=== PATIENT | female | born 1955 | race Caucasian/White ===

== ENCOUNTER 2020-04-08 16:34 | Inpatient (IN) | payer MEDICAID, SELFPAY ==
[2020-04-08 16:45] VITALS: BP 156/102; PULSE 100; RESP 18; TEMP 36.6; O2SAT 97; BMI 34.9
--- NOTE | 2020-04-08 16:50 | XRR_ITS ---
PROCEDURE INFORMATION: Exam: XR Chest, 1 View Exam date and time: 04/08/2020 5:10 PM Age: 64 years old Clinical indication: Cough and shortness of breath. TECHNIQUE: Imaging protocol: XR of the chest Views: 1 view. COMPARISON: No relevant prior studies available. FINDINGS: Lungs: No central pulmonary vascular congestion. There is bibasilar airspace disease which can be due to pneumonia, aspiration, or dependent pulmonary edema. Pleural space: There is a right pleural effusion, volume difficult to determine. No sign of a left pleural effusion. No pneumothorax. Heart/Mediastinum: The cardiac silhouette is borderline enlarged. There is some widening of the mediastinum which may be due to mediastinal lipomatosis given the patient's body habitus. Vasculature: The thoracic aortic arch is atherosclerotic. Bones/joints: Curvature of the lower thoracic spine convex to the right associated with multilevel disc degeneration. XR/XR chest 1V portable [id number] IMPRESSION: 1. Bibasilar airspace disease. 2. Right pleural effusion.
--- NOTE | 2020-04-08 16:51 | ECG_ITS ---
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 Measurements Intervals [place] Rate: 94 P: 29 [place]: 136 QRS: 64 QRSD: 85 T: 53 QT: 355 QTc: 446 Interpretive Statements SINUS RHYTHM MODERATE ST DEPRESSION [0.05+ mV ST DEPRESSION] No previous ECG available for comparison Electronically Signed On 04-08-2020 18:51:23 CDT by Jonah Velásquez M.D. [id number]
[2020-04-08 17:46] LABS: Basophils % 0.2 %; Eosinophils % 0.1 %; Hemoglobin 13.5 g/dL (11.5-15.3); Lymphocytes # 0.9 10^3/uL (0.8-4.8); Lymphocytes % 4.4 %; Mean Corpuscular HGB Conc 35.5 g/dL (30.0-36.0); Mean Corpuscular Hemoglobin 31.9 pg (28.0-34.0); Mean Corpuscular Volume 89.8 fL (81-99); Mean Platelet Volume 9.1 fL (7.4-10.4); Monocytes # 0.9 10^3/uL (0.2-0.9); Monocytes % 4.7 %; Neutrophils # 17.63 10^3/uL (1.8-7.7); Neutrophils % 88.9 %; Nucleated Red Blood Cells % 0 %; Platelet Count 325 10^3/cmm (130-400); Red Blood Count 4.23 10^6/uL (4.1-5.3); Red Cell Distribution Width 11.5 % (12.1-15.1); White Blood Count 19.8 10^3/uL (4.0-10.0)
[2020-04-08 17:48] VITALS: PULSE 97; RESP 20; O2SAT 94
[2020-04-08] MEDS: sodium chloride 0.9% 1,000 ML 75 ML IV (17:53)
--- NOTE | 2020-04-08 17:54 | PC.NURSE ---
informed dr. limon of [facility] adm 125mg of solumedrol en route vo with read back to dc dexamethasone.
[2020-04-08 18:02] LABS: INR 1.02 (0.8-1.2)
[2020-04-08 18:04] LABS: D Dimer 2.63 ug/mIFEU (0-0.59)
[2020-04-08 18:10] LABS: Lactic Sepsis W/Reflex 1.6 mmol/L (0.5-2.2)
[2020-04-08 18:12] LABS: Troponin(5th) Baseline 16 ng/L (0-10)
[2020-04-08 18:13] LABS: SARS Covid-2 Antigen Negative (Negative)
[2020-04-08 18:17] LABS: NT Pro B Type Natriuretic Pept 589 pg/mL (0-125); Procalcitonin 6.61 ng/mL (0-0.5)
[2020-04-08 18:18] LABS: Influenza A by IFA Negative (Negative); Influenza B by IFA Negative (Negative)
[2020-04-08 18:28] LABS: Alanine Aminotransferase 139 U/L (0-33); Albumin Level 3.8 g/dL (3.5-5.2); Alkaline Phosphatase 180 IU/L (35-105); Aspartate Amino Transferase 66 U/L (0-32); Blood Urea Nitrogen 8 mg/dL (8-23); C Reactive Protein 8.5 mg/L (0.0-4.9); Calcium 9.4 mg/dL (8.5-10.5); Carbon Dioxide 23 mmol/L (22-29); Chloride 84 mmol/L (98-107); Creatinine Clr Calc Pharmacy 221.9257; Glomerular Filtration Rate 225.4 mL/min (90-130); Glucose 126 mg/dL (65-115); Osmolality Calculated 250 mOsm/kg (285-295); Sodium 120 mmol/L (136-145); Total Bilirubin 0.5 mg/dL (0.15-1.2); Total Protein 6.8 g/dL (6.6-8.7)
[2020-04-08 18:32] LABS: Anion Gap 17.1 (5-19); Potassium 4.1 mmol/L (3.5-5.1)
--- NOTE | 2020-04-08 18:32 | W.ED.SOB ---
HPI - SOB/Dyspnea General: Chief Complaint: Shortness of Breath/Dyspnea Stated Complaint: PNEUMONIA Time Seen by Provider: 04/08/20 16:42 History of Present Illness: HPI Narrative: This patient is a 64-year-old female who presents today with shortness of breath. She said she has been sick with sinus type symptoms for several weeks. In the past 3 days she has become very short of breath and has developed a cough. She is been on several rounds of antibiotics. She said her nurse practitioner in [place] had done a chest x-ray last week. She went in today because she did not think she was get a make it being so short of breath and she was told to come to the ER for pneumonia. She is unaware of any exposures to COVID. She has not had a fever that she knows of. She does have some inhalers at home. She does not use oxygen at home. She has been told that she might have COPD. MD elicited complaint: shortness of breath and cough Pertinent past history: COPD Onset (ago): day(s) (3 days of severe shortness of breath, several weeks of sinus type symptoms) Context: recent illness Timing: constant and progressively worsening Severity: severe Exacerbating factors: nothing Relieving factors: nothing Known history of: COPD Associated symptoms: Reports chest congestion and cough; Deny abdominal pain, chest pain, fever(s), nausea or vomiting Review of Systems General: Reports: 10 or more systems reviewed and unremarkable except in HPI and below Const: Reports: fatigue and malaise; Denies: fever(s) or chills Eyes: Denies: change in vision ENMT: Denies: odynophagia Card: Denies: chest pain or swelling of feet/ankles Resp: Reports: dyspnea, productive cough, wheezing and chest congestion GI: Denies: abdominal pain, nausea or vomiting : Denies: flank pain or difficulty voiding Musc: Denies: neck pain or back pain Skin/Breast: Denies: rash Neuro: Denies: headache(s), numbness in extremities or weakness in extremities Morgan/Lymph: Denies: easy bruising or easy bleeding [facility] ED PFSH: Medical History (Updated 04/15/20 @ 17:48 by Karina Jordan MD) No pertinent past medical history Surgical History No pertinent past surgical history Family History Mother CAD (coronary artery disease) Social History (Updated 04/14/20 @ 11:58 by Александр Nguyen MD) Smoking and tobacco status: current every day smoker cigarettes [ Other cigarette details: She has smoked for 45 years up to a pack and a half of cigarettes daily. ] Alcohol intake: former Other details last alcohol use: She has a long history of alcohol use which had increased over the past 10 years up to 12 pack of beer per day. She quit 3 to 4 months ago. Substance/Drug Use: never Household members: family Housing: House Physical Exam Const: COMMON NORMALS: patient oriented x3, no limitations and alert GENERAL APPEARANCE: cooperative HENMT: HEAD & SCALP: normal to inspection FACE & SINUS: normal facial exam Eye: GENERAL EYE: appearance normal, both eyes and all related structures Neck/C-Spine: COMMON NORMALS: supple, no meningeal signs and no JVD Chest: COMMONS NORMALS: normal inspection of the chest Resp: EFFORT & INSPECTION: Yes tachypneic, Yes labored and Yes uses accessory muscles AUSCULTATION: rhonchi lower bilaterally Cardio: COMMON NORMALS: no JVD, regular rate, regular rhythm and No murmurs present (Cardio) RATE: regular rate RHYTHM: regular rhythm GI: COMMON NORMALS: Normal to inspection, nondistended, normoactive bowel sounds present, Soft to palpation and non-tender INSPECTION: Yes normal to inspection AUSCULTATION: Yes normoactive bowel sounds PALPATION: Yes Soft to palpation Back/Pelvis: COMMON NORMALS: thoracic and lumbar spine normal to inspection Extremity: COMMON NORMALS: normal to inspection Neuro: COMMON NORMALS: patient oriented x3, moves all extremities, no focal motor deficits and no sensory deficits noted SENSORIUM/ORIENTATION: Yes alert MENINGEAL SIGNS: Yes no meningeal signs Psych: COMMON NORMALS: mental status grossly normal, cooperative and normal affect Skin: COMMON NORMALS: no rashes or lesions noted and turgor normal GENERAL SKIN EXAM: no rashes or lesions noted and turgor normal Course ED course: This patient is a 64-year-old female who presents with shortness of breath. She has been trying to take care of this and as an outpatient and is seen her doctor a few times. She is been on several different antibiotics. She appears to have a community-acquired pneumonia. Her presentation is not typical for COVID. She will be treated for pneumonia and admitted for further management. Vital Signs: Vital signs: Vital Signs Temperature 98.5 F 04/15/20 16:10 Pulse Rate 79 04/15/20 18:05 Respiratory Rate 17 04/15/20 18:05 Blood Pressure 179/89 04/15/20 18:05 Pulse Oximetry 94 04/15/20 18:05 MDM - SOB/Dyspnea Lab Data: Labs: Lab Results 04/08/20 04/08/20 04/08/20 Range/Units 01:15 01:15 17:35 WBC 19.8 H (4.0-10.0) 10^3/ uL RBC 4.23 (4.1-5.3) 10^6/u L Hgb 13.5 (11.5-15.3) g/dL Hct 38.0 (37.0-47.0) % MCV 89.8 (81-99) fL MCH 31.9 (28.0-34.0) pg MCHC 35.5 (30.0-36.0) g/dL RDW 11.5 L (12.1-15.1) % Plt Count 325 (130-400) 10^3/c mm MPV 9.1 (7.4-10.4) fL Neut % (Auto) 88.9 % Lymph % (Auto) 4.4 % [place] % (Auto) 4.7 % Eos % (Auto) 0.1 % Baso % (Auto) 0.2 % Neut # (Auto) 17.63 H (1.8-7.7) 10^3/u L Lymph # (Auto) 0.9 (0.8-4.8) 10^3/u L [place] # (Auto) 0.9 (0.2-0.9) 10^3/u L Eos # (Auto) 0.0 (0.0-0.8) 10^3/u L Baso # (Auto) 0.0 (0.0-0.1) 10^3/u L Nucleated RBC % (a uto) 0 % Nucleated RBCs # 0.0 /100WBC PT (12.1-14.9) SECO NDS INR (0.8-1.2) D-Dimer (0-0.59) ug/mIFE U Sodium (136-145) mmol/L Potassium (3.5-5.1) mmol/L Chloride (98-107) mmol/L Carbon Dioxide (22-29) mmol/L Anion Gap (5-19) BUN (8-23) mg/dL Creatinine (0.5-0.9) mg/dL GFR Calculation (90-130) mL/min Glucose (65-115) mg/dL Calculated Osmolal ity (285-295) mOsm/k g Lactic Acid (0.5-2.2) mmol/L Uric Acid (2.4-5.7) mg/dL Calcium (8.5-10.5) mg/dL Total Bilirubin (0.15-1.2) mg/dL AST (0-32) U/L ALT (0-33) U/L Alkaline Phosphata se (35-105) IU/L Troponin T Baselin e (0-10) ng/L Troponin T 120 Min [place] (0-10) ng/L Delta Troponin T (0-10) ABS# C-Reactive Protein (0.0-4.9) mg/L NT-Pro-B Natriuret Pep (0-125) pg/mL Total Protein (6.6-8.7) g/dL Albumin (3.5-5.2) g/dL Globulin (1.3-4.6) g/dL Procalcitonin (0-0.5) ng/mL TSH (0.27-4.20) uIU/ mL Urine Osmolality 451 (50-1200) mOsm/k g Ur Random Sodium 38 mmol/L Influenza Type A A g (Negative) Influenza Type B A g (Negative) SARS-CoV-2 Ag (Rap id) (Negative) 04/08/20 04/08/20 04/08/20 Range/Units 17:35 17:35 17:35 WBC (4.0-10.0) 10^3/ uL RBC (4.1-5.3) 10^6/u L Hgb (11.5-15.3) g/dL Hct (37.0-47.0) % MCV (81-99) fL MCH (28.0-34.0) pg MCHC (30.0-36.0) g/dL RDW (12.1-15.1) % Plt Count (130-400) 10^3/c mm MPV (7.4-10.4) fL Neut % (Auto) % Lymph % (Auto) % [place] % (Auto) % Eos % (Auto) % Baso % (Auto) % Neut # (Auto) (1.8-7.7) 10^3/u L Lymph # (Auto) (0.8-4.8) 10^3/u L [place] # (Auto) (0.2-0.9) 10^3/u L Eos # (Auto) (0.0-0.8) 10^3/u L Baso # (Auto) (0.0-0.1) 10^3/u L Nucleated RBC % (a uto) % Nucleated RBCs # /100WBC PT 13.80 (12.1-14.9) SECO NDS INR 1.02 (0.8-1.2) D-Dimer 2.63 H (0-0.59) ug/mIFE U Sodium 120 L (136-145) mmol/L Potassium 4.1 (3.5-5.1) mmol/L Chloride 84 L (98-107) mmol/L Carbon Dioxide 23 (22-29) mmol/L Anion Gap 17.1 (5-19) BUN 8 (8-23) mg/dL Creatinine 0.3 L (0.5-0.9) mg/dL GFR Calculation 225.4 H (90-130) mL/min Glucose 126 H (65-115) mg/dL Calculated Osmolal ity 250 L (285-295) mOsm/k g Lactic Acid 1.6 (0.5-2.2) mmol/L Uric Acid (2.4-5.7) mg/dL Calcium 9.4 (8.5-10.5) mg/dL Total Bilirubin 0.5 (0.15-1.2) mg/dL AST 66 H (0-32) U/L ALT 139 H (0-33) U/L Alkaline Phosphata se 180 H (35-105) IU/L Troponin T Baselin e (0-10) ng/L Troponin T 120 Min [place] (0-10) ng/L Delta Troponin T (0-10) ABS# C-Reactive Protein 8.5 H (0.0-4.9) mg/L NT-Pro-B Natriuret Pep 589 H (0-125) pg/mL Total Protein 6.8 (6.6-8.7) g/dL Albumin 3.8 (3.5-5.2) g/dL Globulin 3.0 (1.3-4.6) g/dL Procalcitonin 6.61 H (0-0.5) ng/mL TSH (0.27-4.20) uIU/ mL Urine Osmolality (50-1200) mOsm/k g Ur Random Sodium mmol/L Influenza Type A A g (Negative) Influenza Type B A g (Negative) SARS-CoV-2 Ag (Rap id) (Negative) 04/08/20 04/08/20 04/08/20 Range/Units 17:35 17:35 17:35 WBC (4.0-10.0) 10^3/ uL RBC (4.1-5.3) 10^6/u L Hgb (11.5-15.3) g/dL Hct (37.0-47.0) % MCV (81-99) fL MCH (28.0-34.0) pg MCHC (30.0-36.0) g/dL RDW (12.1-15.1) % Plt Count (130-400) 10^3/c mm MPV (7.4-10.4) fL Neut % (Auto) % Lymph % (Auto) % [place] % (Auto) % Eos % (Auto) % Baso % (Auto) % Neut # (Auto) (1.8-7.7) 10^3/u L Lymph # (Auto) (0.8-4.8) 10^3/u L [place] # (Auto) (0.2-0.9) 10^3/u L Eos # (Auto) (0.0-0.8) 10^3/u L Baso # (Auto) (0.0-0.1) 10^3/u L Nucleated RBC % (a uto) % Nucleated RBCs # /100WBC PT (12.1-14.9) SECO NDS INR (0.8-1.2) D-Dimer (0-0.59) ug/mIFE U Sodium (136-145) mmol/L Potassium (3.5-5.1) mmol/L Chloride (98-107) mmol/L Carbon Dioxide (22-29) mmol/L Anion Gap (5-19) BUN (8-23) mg/dL Creatinine (0.5-0.9) mg/dL GFR Calculation (90-130) mL/min Glucose (65-115) mg/dL Calculated Osmolal ity (285-295) mOsm/k g Lactic Acid (0.5-2.2) mmol/L Uric Acid (2.4-5.7) mg/dL Calcium (8.5-10.5) mg/dL Total Bilirubin (0.15-1.2) mg/dL AST (0-32) U/L ALT (0-33) U/L Alkaline Phosphata se (35-105) IU/L Troponin T Baselin e 16 H (0-10) ng/L Troponin T 120 Min [place] (0-10) ng/L Delta Troponin T (0-10) ABS# C-Reactive Protein (0.0-4.9) mg/L NT-Pro-B Natriuret Pep (0-125) pg/mL Total Protein (6.6-8.7) g/dL Albumin (3.5-5.2) g/dL Globulin (1.3-4.6) g/dL Procalcitonin (0-0.5) ng/mL TSH (0.27-4.20) uIU/ mL Urine Osmolality (50-1200) mOsm/k g Ur Random Sodium mmol/L Influenza Type A A g Negative (Negative) Influenza Type B A g Negative (Negative) SARS-CoV-2 Ag (Rap id) Negative (Negative) 04/08/20 04/08/20 Range/Units 19:23 19:23 WBC (4.0-10.0) 10^3/ uL RBC (4.1-5.3) 10^6/u L Hgb (11.5-15.3) g/dL Hct (37.0-47.0) % MCV (81-99) fL MCH (28.0-34.0) pg MCHC (30.0-36.0) g/dL RDW (12.1-15.1) % Plt Count (130-400) 10^3/c mm MPV (7.4-10.4) fL Neut % (Auto) % Lymph % (Auto) % [place] % (Auto) % Eos % (Auto) % Baso % (Auto) % Neut # (Auto) (1.8-7.7) 10^3/u L Lymph # (Auto) (0.8-4.8) 10^3/u L [place] # (Auto) (0.2-0.9) 10^3/u L Eos # (Auto) (0.0-0.8) 10^3/u L Baso # (Auto) (0.0-0.1) 10^3/u L Nucleated RBC % (a uto) % Nucleated RBCs # /100WBC PT (12.1-14.9) SECO NDS INR (0.8-1.2) D-Dimer (0-0.59) ug/mIFE U Sodium (136-145) mmol/L Potassium (3.5-5.1) mmol/L Chloride (98-107) mmol/L Carbon Dioxide (22-29) mmol/L Anion Gap (5-19) BUN (8-23) mg/dL Creatinine (0.5-0.9) mg/dL GFR Calculation (90-130) mL/min Glucose (65-115) mg/dL Calculated Osmolal ity (285-295) mOsm/k g Lactic Acid (0.5-2.2) mmol/L Uric Acid 2.9 (2.4-5.7) mg/dL Calcium (8.5-10.5) mg/dL Total Bilirubin (0.15-1.2) mg/dL AST (0-32) U/L ALT (0-33) U/L Alkaline Phosphata se (35-105) IU/L Troponin T Baselin e (0-10) ng/L Troponin T 120 Min [place] 12.87 H (0-10) ng/L Delta Troponin T -3.13 L (0-10) ABS# C-Reactive Protein (0.0-4.9) mg/L NT-Pro-B Natriuret Pep (0-125) pg/mL Total Protein (6.6-8.7) g/dL Albumin (3.5-5.2) g/dL Globulin (1.3-4.6) g/dL Procalcitonin (0-0.5) ng/mL TSH 0.56 (0.27-4.20) uIU/ mL Urine Osmolality (50-1200) mOsm/k g Ur Random Sodium mmol/L Influenza Type A A g (Negative) Influenza Type B A g (Negative) SARS-CoV-2 Ag (Rap id) (Negative) Discharge Plan Discharge Admit Provider: Jonathan Calderon Discharge Date/Time: 04/08/20 21:02 Coding Level of Care Code ED It Infrastructure Engineer for g Fwd Exam Comprehensive
--- NOTE | 2020-04-08 18:51 | ECG_ITS ---
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 Measurements Intervals [place] Rate: 93 P: 40 [place]: 143 QRS: 61 QRSD: 81 T: 54 QT: 355 QTc: 443 Interpretive Statements SINUS RHYTHM Compared to ECG 04/08/2020 17:27:20 ST (T wave) deviation no longer present Electronically Signed On 04-08-2020 19:31:04 CDT by Jonah Velásquez M.D. [id number]
[2020-04-08 19:00] VITALS: BP 135/82; PULSE 96; RESP 21; O2SAT 95
[2020-04-08] MEDS: cefTRIAXone 1,000 MG in sodium chloride 0.9% (plus) 50 ML 100 MG IV (19:19)
[2020-04-08] MEDS: azithromycin 500 MG in sodium chloride 0.9% 250 ML 250 MG IV (19:19)
[2020-04-08 20:00] LABS: Troponin 5 2HR 12.87 ng/L (0-10)
[2020-04-08 20:03] LABS: Troponin 5 2HR Delta -3.13 ABS# (0-10)
--- NOTE | 2020-04-08 20:16 | PM.HP ---
Providers/Chief Complaint Chief Complaint: PNEUMONIA History of Present Illness Pamela Jack is a 64 year old female who came in with chief complaint of worsening shortness of breath. Patient is stating her symptoms started 3 to 4 weeks ago with sinus & chest congestion, she never noticed any fever, myalgias, dysuria, diarrhea or vomiting, her symptoms gradually got worse, she has visited primary care clinic, she was put on 3 different antibiotics for worsening of symptoms, she received doxycycline, Augmentin and Bactrim, she is denying loose stools after use of antibiotics, she did not notice any fever at home, lately she has been noticing orthopnea, PND mild leg swelling. She has been drinking 1 to 1.5 gallons of water a day because of use of antibiotics. She denies previous history of hyponatremia. She is denying history of hypo-/hyperthyroidism. No other past medical surgical history Diagnosis in the ER revealed community-acquired pneumonia evident on x-ray, sepsis, she has been given ceftriaxone and azithromycin in the ER, high BNP, abnormal transaminases, very high procalcitonin, d-dimer, patient is not able to lay flat for CTA chest, decision was made to anticoagulate her for next 12 hours until we obtain the studies, I have requested gallbladder ultrasound and start her on vancomycin and Zosyn No neurological signs or symptoms Review of Systems Const: Reports: chills, body aches and fatigue; Denies: fever(s) Eyes: Denies: change in vision ENMT: Denies: throat pain Card: Reports: swelling of feet/ankles, dyspnea on exertion and orthopnea Resp: Reports: dyspnea and non-productive cough GI: Denies: abdominal pain, nausea or vomiting : Denies: flank pain Musc: Denies: neck pain Skin/Breast: Denies: rash Neuro: Denies: headache(s) Psych: Denies: anxiety Endo: Denies: polyuria Morgan/Lymph: Denies: easy bruising All/Imm: Denies: urticaria Medications/Allergies Home Medications Medication Instructions Recorded Confirmed Last Taken Type albuterol sulfate 2 puff INHALATION 6XD PRN 04/08/20 04/08/20 Unknown History doxycycline hyclate 100 mg PO BID 04/08/20 04/08/20 04/08/20 History ipratropium-albuterol 3 ml INHALATION QID 04/08/20 04/08/2004/08/20 History prednisone See Rx Instructions .ROUTE .COMPLEX 04/08/20 04/08/20 04/08/20 History Allergies Allergy/AdvReac Type Severity Reaction Status Date / Time No Known Allergies Allergy Verified 04/08/20 18:48 PFSH Acute PFSH: Medical History No pertinent past medical history Surgical History No pertinent past surgical history Family History Mother CAD (coronary artery disease) Social History Smoking and tobacco status: current every day smoker cigarettes [ Other cigarette details: [id number] smoking history ] Alcohol intake: former Substance/Drug Use: never Household members: family Housing: House Vitals/I&O/Wt Last Vital Signs Temp 97.9 F 04/08/20 16:45 Pulse 96 04/08/20 19:00 Resp 21 H 04/08/20 19:00 BP 135/82 04/08/20 19:00 Pulse Ox 95 04/08/20 19:00 Weight last 48 hrs Weight 95.254 kg Physical Exam Narrative: EXAM NARRATIVE: Very pleasant female sitting in her bed saturating well on room air Cannula was not in her nose No active respiratory distress S1, S2 active signs of congestive heart failure bilateral lower extremity edema 1+ I did not appreciate JVD On lung auscultation bilateral breath sounds without active rhonchi or crackles Abdomen distended, soft, bowel sounds present Appropriate mood and affect EOMI, PERRLA Awake alert oriented x3 GCS 15 No neurological signs of hyponatremia Data : 04/08/20 17:35 04/08/20 17:35 Micro: Microbiology 04/08/20 17:35 Blood Culture - Preliminary Blood SPECIMEN COLLECTED 04/08/20 18:59 Blood Culture - Preliminary Blood SPECIMEN COLLECTED A&P Assessment and plan (1) Community acquired pneumonia: Status: Acute (2) Orthopnea: Status: Acute (3) Polydipsia: Status: Acute (4) Hyponatremia: Status: Acute (5) New onset of congestive heart failure: Status: Acute (6) Abnormal transaminases: Status: Acute (7) Sepsis: Status: Acute Additional A&P Information Community-acquired pneumonia Severe sepsis, sepsis criteria met with tachypnea, leukocytosis, chest x-ray reveals bilateral infiltrates, high procalcitonin and d-dimer Patient has failed 3 outpatient antibiotics, I would use vancomycin and Zosyn along steroids DuoNeb every 4h Legionella, bacterial antigen requested Blood culture obtained COVID antigen negative Abnormal transaminases with high alkaline phosphatase Would request gallbladder ultrasound, gram-negative anaerobic coverage with Zosyn Of note, she has right-sided heart failure features which could be responsible for abnormal LFTs, considering active sepsis I would continue antibiotics High d-dimer Currently patient is in sinus rhythm not hypoxic, saturating well on room air I would anticoagulate with Lovenox for now until she is able to lay flat for CTA chest to rule out PE New onset congestive heart failure Patient has [id number] smoking history, most likely underlying lung pathology is responsible for right-sided heart failure Low-dose Lasix, echo in the morning, follow-up with TSH Hyponatremia without neurological signs or symptoms Sodium 120 No previous sodium to compare Patient is endorsing polydipsia drinking 1 to 1.5 gallons of water every day because she was afraid of kidney injury due to 3 different antibiotic usage at home Clinically looks mildly fluid overloaded, I would not use fluids for now, would give a trial of Lasix Discontinue fluids for now Serum, urine osmolarity, urine sodium, TSH, uric acid ordered She is not on any antidepressant DVT prophylaxis: Currently on therapeutic dose of Lovenox Cardiac diet Full code Attestations Medical Necessity Statement*: Anticipating stay in the hospital course more than 2 midnights for management of new onset heart failure, hyponatremia and sepsis secondary to pneumonia Time Spent in Patient Care: (>than 50% of time spent in counselling and/or direct pt care on unit). 45mins Coding Level of Care Code Acute Civil Engineering Design Draftsperson for Kenyon Pratt Diagnoses Community acquired pneumonia J18.9 Orthopnea R06.01 Polydipsia R63.1 Hyponatremia E87.1 New onset of congestive heart failure I50.9 Abnormal transaminases R74.8 Sepsis A41.9
[2020-04-08 20:30] VITALS: BP 122/79; PULSE 92; RESP 20; O2SAT 95
[2020-04-08] MEDS: enoxaparin 100 mg/mL Syringe SUBCUT (20:43)
--- NOTE | 2020-04-08 21:36 | PC.NURSE ---
REPORT CALLED TO JEREMY AMBRIZ IN MED SURG.
[2020-04-08 21:56] VITALS: BP 149/91; PULSE 92; RESP 18; TEMP 36.6; O2SAT 94
[2020-04-08] MEDS: FUROsemide 20 mg Tablet PO (22:24)
--- NOTE | 2020-04-08 22:52 | PC.PHAR ---
Pharmacokinetic dosing service Date: 04/08/20 Time: 2252 Objective: Patient: Pamela Jack Floor: 252-2 Age: 64 yo Serum creatinine: 0.3 mg/dL Height: 65.0 Inches Weight (kg): 95.254 Diagnosis: Relevant medical/social history: Cultures and sensitivities: Other labs: Assessment: IBW (kg): 57.00 Dosing wt(kg): 95.254 Estimated Creatinine clearance (ml/min): 130 Clearance limited to 130 ml/min to reduce risk of overdosing. CRCL method: Cockcroft and Gault using ibw(default). Drug selected: Vancomycin Loading dose (mg): 0 Vd (liters): 85.7 (factor used: 0.9 L/kg) Carlton (hr-1): 0.112 Half life (hrs): 6.19 Recommended dose: 1500 mg Interval: 8 hrs Infusion time (hrs): 1.5 Predicted peak (mcg/mL): 27.2 Predicted trough (mcg/mL): 13.13 Total body weight is being used for vancomycin dosing. Renal function is stable [ ] /unstable [ ] Recommendations: Give Vancomycin 1500 mg q 8 hrs with an expected Cpeak of 27.2 mcg/ml and an expected Ctrough of 13.13 mcg/ml Renal dosing of other antibiotics (review renal dosing of other medications and list guidelines here): Thank you for the consult, will continue to follow. Signature: Aline Cordoba [facility]
[2020-04-08 23:02] LABS: Sodium 121 mmol/L (136-145)
[2020-04-08 23:03] LABS: Troponin 5 6HR 15.54 ng/L (0-10)
[2020-04-08 23:04] LABS: Troponin 5 6HR Delta -0.46 ng/L (0-12)
[2020-04-08 23:07] LABS: Thyroid Stimulating Hormone 0.56 uIU/mL (0.27-4.20); Uric Acid 2.9 mg/dL (2.4-5.7)
[2020-04-09] VITALS (13 sets, daily range): BP systolic 95–155; BP diastolic 67–90; PULSE 70–106; RESP 16–20; TEMP 36.3–36.8; O2SAT 91–98
[2020-04-09] MEDS: ipratropium-albuterol 3 mL Neb INHALATION ×3 (00:25→14:44)
[2020-04-09] MEDS: piperacillin-tazobactam 3.375 GM in sodium chloride 0.9% (plus) 50 ML IV ×3 (01:06→18:07)
[2020-04-09 02:53] LABS: Urine Random Sodium 38 mmol/L
--- NOTE | 2020-04-09 04:50 | PC.NURSE ---
pt went in toilet and flushed it before being able to measure it
[2020-04-09 05:34] LABS: Basophils % 0.2 %; Eosinophils % 0.1 %; Hematocrit 37.8 % (37.0-47.0); Hemoglobin 12.6 g/dL (11.5-15.3); Lymphocytes # 1.4 10^3/uL (0.8-4.8); Lymphocytes % 7.2 %; Mean Corpuscular HGB Conc 33.3 g/dL (30.0-36.0); Mean Corpuscular Hemoglobin 31.3 pg (28.0-34.0); Mean Platelet Volume 9.4 fL (7.4-10.4); Monocytes # 1.5 10^3/uL (0.2-0.9); Monocytes % 7.7 %; Neutrophils # 16.02 10^3/uL (1.8-7.7); Neutrophils % 83.2 %; Nucleated Red Blood Cells % 0 %; Platelet Count 309 10^3/cmm (130-400); Red Blood Count 4.02 10^6/uL (4.1-5.3); Red Cell Distribution Width 11.6 % (12.1-15.1); White Blood Count 19.2 10^3/uL (4.0-10.0)
[2020-04-09 06:02] LABS: Blood Urea Nitrogen 8 mg/dL (8-23); Carbon Dioxide 22 mmol/L (22-29); Chloride 86 mmol/L (98-107); Creatinine Clr Calc Pharmacy 221.9257; Glomerular Filtration Rate 225.4 mL/min (90-130); Glucose 121 mg/dL (65-115); Osmolality Calculated 254 mOsm/kg (285-295); Sodium 122 mmol/L (136-145)
[2020-04-09 06:07] LABS: Anion Gap 17.7 (5-19); Potassium 3.7 mmol/L (3.5-5.1)
[2020-04-09] MEDS: FUROsemide 20 mg Tablet PO (08:35)
[2020-04-09] MEDS: enoxaparin 100 mg/mL Syringe SUBCUT (08:37)
[2020-04-09 08:57] LABS: Sodium 125 mmol/L (136-145)
[2020-04-09] MEDS: predniSONE 20 mg Tablet 40 MG PO (10:09)
[2020-04-09 14:28] LABS: Vancomycin Trough 13.4 ug/mL (10-15)
[2020-04-09 14:34] LABS: Albumin Level 3.8 g/dL (3.5-5.2); Anion Gap 17.4 (5-19); Blood Urea Nitrogen 9 mg/dL (8-23); Calcium 8.7 mg/dL (8.5-10.5); Carbon Dioxide 25 mmol/L (22-29); Chloride 87 mmol/L (98-107); Glomerular Filtration Rate 101.3 mL/min (90-130); Glucose 196 mg/dL (65-115); Phosphorus 2.5 mg/dL (2.5-4.5); Potassium 3.4 mmol/L (3.5-5.1); Sodium 126 mmol/L (136-145)
--- NOTE | 2020-04-09 16:30 | PC.NURSE ---
1620 Called lab due to computer saying Vinny nicholson pending after being drawn aty 1352. Says result is 13.4 and results got held up in system is reason not showing result. Leonard milian.
--- NOTE | 2020-04-09 16:54 | P.PN_ITS ---
Subjective Subjective: Interval history: Doing well. Reports improvement of the symptoms. Reports improved cough and shortness of breath. Denies fevers or chills. No nausea or vomiting. No diarrhea. No confusion, no weakness. Medications: Reviewed: Yes Medication Review Details: Generic Name Dose Route Start Last Admin Trade Name Eloise PRN Reason Stop Dose Admin Albuterol/Ipratrop ium 3 ml 04/08/20 21:53 04/09/20 14:44 Duoneb INHALATION 3 ml Q6H PRN Administration SHORTNESS OF MAG TH Furosemide 20 mg 04/08/20 21:53 04/09/20 08:35 Lasix PO 20 mg DAILY@0800 ANGEL Administration Sodium Chloride 1,000 mls @ 75 ml s/hr 04/08/20 17:00 04/08/20 17:53 Sodium Chloride 0.9% IV 75 mls/hr .[id number] ANGEL Administration Piperacillin Sod/T azobactam 50 mls @ 12.5 mls /hr 04/09/20 01:00 04/09/20 10:10 Sod 3.375 gm/ So dium Chloride IV 12.5 mls/hr Q8H ANGEL Administration Protocol Vancomycin HCl 1,5 00 mg/ 250 mls @ 166.667 mls/hr 04/08/20 23:00 04/09/20 16:26 Sodium Chloride IV 166.7 mls/hr Q8H ANGEL Administration Prednisone 40 mg 04/09/20 09:00 04/09/20 10:09 Prednisone PO 40 mg DAILY ANGEL Administration Vitals/I&O/Wt Last Vital Signs Temp 97.4 F L 04/09/20 16:05 Pulse 99 04/09/20 16:05 Resp 18 04/09/20 16:05 BP 153/84 04/09/20 16:05 Pulse Ox 93 04/09/20 16:05 04/09/20 04/09/20 04/09/20 06:59 14:59 22:59 Intake Total 300 / 600 850 / 850 Output Total 400 / 400 Balance -100 / 200 850 / 850 Weight last 48 hrs Weight 95.254 kg Physical Exam Narrative: EXAM NARRATIVE: AAO3 NAD Responses are adequate. Skin W/D MMM no JVD, supple. decreased BS BB. Minimal crackes. No distress S1, S2 reg S, NT, BS+ trace bl edema, no cyanosis or calf tenderness bl PERRL, EOMi, normal speech no focal muscle weakness Data : 04/09/20 04:25 04/09/20 13:52 Other Labs: Laboratory Results WBC 19.2 10^3/uL (4.0-10.0) H 04/09/20 04:25 RBC 4.02 10^6/uL (4.1-5.3) L 04/09/20 04:25 Hgb 12.6 g/dL (11.5-15.3) 04/09/20 04:25 Hct 37.8 % (37.0-47.0) 04/09/20 04:25 MCV 94.0 fL (81-99) 04/09/20 04:25 MCH 31.3 pg (28.0-34.0) 04/09/20 04:25 MCHC 33.3 g/dL (30.0-36.0) D 04/09/20 04:25 RDW 11.6 % (12.1-15.1) L 04/09/20 04:25 Plt Count 309 10^3/cmm (130-400) 04/09/20 04:25 MPV 9.4 fL (7.4-10.4) 04/09/20 04:25 Neut % (Auto) 83.2 % 04/09/20 04:25 Lymph % (Auto) 7.2 % 04/09/20 04:25 [place] % (Auto) 7.7 % 04/09/20 04:25 Eos % (Auto) 0.1 % 04/09/20 04:25 Baso % (Auto) 0.2 % 04/09/20 04:25 Neut # (Auto) 16.02 10^3/uL (1.8-7.7) H 04/09/20 04:25 Lymph # (Auto) 1.4 10^3/uL (0.8-4.8) 04/09/20 04:25 [place] # (Auto) 1.5 10^3/uL (0.2-0.9) H 04/09/20 04:25 Eos # (Auto) 0.0 10^3/uL (0.0-0.8) 04/09/20 04:25 Baso # (Auto) 0.0 10^3/uL (0.0-0.1) 04/09/20 04:25 Nucleated RBC % (auto) 0 % 04/09/20 04:25 Nucleated RBCs # 0.0 /100WBC 04/09/20 04:25 PT 13.80 SECONDS (12.1-14.9) 04/08/20 17:35 INR 1.02 (0.8-1.2) 04/08/20 17:35 D-Dimer 2.63 ug/mIFEU (0-0.59) H 04/08/20 17:35 Sodium 126 mmol/L (136-145) L 04/09/20 13:52 Potassium 3.4 mmol/L (3.5-5.1) L 04/09/20 13:52 Chloride 87 mmol/L (98-107) L 04/09/20 13:52 Carbon Dioxide 25 mmol/L (22-29) 04/09/20 13:52 Anion Gap 17.4 (5-19) 04/09/20 13:52 BUN 9 mg/dL (8-23) 04/09/20 13:52 Creatinine 0.6 mg/dL (0.5-0.9) 04/09/20 13:52 GFR Calculation 101.3 mL/min (90-130) 04/09/20 13:52 Glucose 196 mg/dL (65-115) H 04/09/20 13:52 Calculated Osmolality 254 mOsm/kg (285-295) L 04/09/20 04:25 Lactic Acid 1.6 mmol/L (0.5-2.2) 04/08/20 17:35 Uric Acid 2.9 mg/dL (2.4-5.7) 04/08/20 19:23 Calcium 8.7 mg/dL (8.5-10.5) 04/09/20 13:52 Phosphorus 2.5 mg/dL (2.5-4.5) 04/09/20 13:52 Total Bilirubin 0.5 mg/dL (0.15-1.2) 04/08/20 17:35 AST 66 U/L (0-32) H 04/08/20 17:35 ALT 139 U/L (0-33) H 04/08/20 17:35 Alkaline Phosphatase 180 IU/L (35-105) H 04/08/20 17:35 Troponin T Baseline 16 ng/L (0-10) H 04/08/20 17:35 Troponin T 120 Minute 12.87 ng/L (0-10) H 04/08/20 19:23 Delta Troponin T -3.13 ABS# (0-10) L 04/08/20 19:23 Troponin T Hi Sens 6Hr 15.54 ng/L (0-10) H 04/08/20 22:35 Troponin T Hi Sens 6Hr Delta -0.46 ng/L (0-12) L 04/08/20 22:35 C-Reactive Protein 8.5 mg/L (0.0-4.9) H 04/08/20 17:35 NT-Pro-B Natriuret Pep 589 pg/mL (0-125) H 04/08/20 17:35 Total Protein 6.8 g/dL (6.6-8.7) 04/08/20 17:35 Albumin 3.8 g/dL (3.5-5.2) 04/09/20 13:52 Globulin 3.0 g/dL (1.3-4.6) 04/08/20 17:35 Procalcitonin 6.61 ng/mL (0-0.5) H 04/08/20 17:35 TSH 0.56 uIU/mL (0.27-4.20) 04/08/20 19:23 Ur Random Sodium 38 mmol/L 04/08/20 01:15 Vancomycin Trough 13.4 ug/mL (10-15) 04/09/20 13:52 Influenza Type A Ag Negative (Negative) 04/08/20 17:35 Influenza Type B Ag Negative (Negative) 04/08/20 17:35 SARS-CoV-2 Ag (Rapid) Negative (Negative) 04/08/20 17:35 Impressions Chest X-Ray 04/08/20 16:50 IMPRESSION: 1. Bibasilar airspace disease. 2. Right pleural effusion. Micro: Microbiology 04/08/20 01:15 Legionella Urinary Antigen - Final Urine,Voided Bacterial Antigens - Final 04/08/20 17:35 Blood Culture - Preliminary Blood SPECIMEN COLLECTED 04/08/20 18:59 Blood Culture - Preliminary Blood SPECIMEN COLLECTED A&P Assessment and plan (1) Community acquired pneumonia: Status: Acute (2) Orthopnea: Status: Acute (3) Polydipsia: Status: Acute (4) Hyponatremia: Status: Acute (5) New onset of congestive heart failure: Status: Acute (6) Abnormal transaminases: Status: Acute (7) Sepsis: Status: Acute Additional A&P Information Community-acquired pneumonia Severe sepsis, sepsis criteria met with tachypnea, leukocytosis, chest x-ray reveals bilateral infiltrates, high procalcitonin and d-dimer Patient has failed 3 outpatient antibiotics, I would use vancomycin and Zosyn along steroids DuoNeb every 4h Legionella, bacterial antigen requested Blood culture obtained COVID antigen negative Abnormal transaminases with high alkaline phosphatase Would request gallbladder ultrasound, gram-negative anaerobic coverage with Zosyn Of note, she has right-sided heart failure features which could be responsible for abnormal LFTs, considering active sepsis I would continue antibiotics High d-dimer Currently patient is in sinus rhythm not hypoxic, saturating well on room air I would anticoagulate with Lovenox for now until she is able to lay flat for CTA chest to rule out PE New onset congestive heart failure Patient has [id number] smoking history, most likely underlying lung pathology is responsible for right-sided heart failure Low-dose Lasix, echo in the morning, follow-up with TSH Hyponatremia without neurological signs or symptoms Sodium 120 No previous sodium to compare Patient is endorsing polydipsia drinking 1 to 1.5 gallons of water every day because she was afraid of kidney injury due to 3 different antibiotic usage at home Clinically looks mildly fluid overloaded, I would not use fluids for now, would give a trial of Lasix Discontinue fluids for now Serum, urine osmolarity, urine sodium, TSH, uric acid ordered She is not on any antidepressant DVT prophylaxis: Currently on therapeutic dose of Lovenox Cardiac diet Full code [place] BL PNA. improving symptoms. Stable. Echo report without significant abnormalities. EF is 60%. Continue current antibiotics. Continue small dose of Lasix. I doubt PE. Patient's white blood cells are elevated, procalcitonin is elevated. Additionally she is not hypoxic beyond what would you expect from bilateral pneumonia. D-dimer could be elevated due to acute inflammation. I think at this point it would be reasonable to avoid additional radiation exposure from CT. we will check BNP and procalcitonin level in the morning Hyponatremia. 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 Could be secondary to #1. However I believe polydipsia also contributes to the low sodium level. Currently improving. Continue fluid restriction and liberalize diet. Continue monitoring chemistry panel every 6 hours. Adjust treatments as needed. Avoid rapid correction of hyponatremia. Additional testing might be necessary in the near future if hyponatremia persists. Elevated troponin. This could be secondary to #1. No chest pain. Normal echo and resolved EKG changes. Will recommend outpatient cardiac evaluation. Elevated LFTs. Will check right upper quadrant ultrasound to rule out liver or gallbladder problems. Will monitor. DVT prophylaxis. We will start the patient on Lovenox prophylactic dose. The plan of care was discussed with the patient. She verbalized understanding and agreement. Attestations Medical Necessity Statement*: Plan of care requires inpatient hospitalization for IV medications and additional testing. 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
[2020-04-09] MEDS: potassium chloride ER 10 mEq Tablet 40 MEQ PO (17:57)
[2020-04-09 19:12] LABS: NT Pro B Type Natriuretic Pept 725 pg/mL (0-125); Procalcitonin 8.07 ng/mL (0-0.5)
[2020-04-09 19:23] LABS: Albumin Level 3.7 g/dL (3.5-5.2); Blood Urea Nitrogen 10 mg/dL (8-23); Calcium 8.8 mg/dL (8.5-10.5); Carbon Dioxide 19 mmol/L (22-29); Chloride 89 mmol/L (98-107); Glucose 142 mg/dL (65-115); Sodium 126 mmol/L (136-145)
[2020-04-09 19:29] LABS: Anion Gap 21.7 (5-19); Potassium 3.7 mmol/L (3.5-5.1)
[2020-04-09] MEDS: acetaminophen 325 mg Tablet 650 MG PO (20:42)
--- NOTE | 2020-04-09 21:53 | USCV_ITS ---
Pamela Jack Age: 64 Gender: F : 1955 Exam Date: 04/09/2020 06:16 Ordering Phys: Jonathan Calderon MD Technologist: Denise Murillo [place] [facility] [place]: NEW ONSET CHF BP: 150 / 79 HR: 88 Rhythm: Sinus Technical Quality: Fair MEASUREMENTS (Male / Female) Normal Values 2D ECHO LV Diastolic Diameter PLAX 2.4 cm 4.2 - 5.9 / 3.9 - 5.3 cm LV Systolic Diameter PLAX 2.2 cm LV Chamber Size 3.1 cm IVS Diastolic Thickness 1.5 cm 0.6 - 1.0 / 0.6 - 0.9 cm IVS Systolic Thickness 2.2 cm LVPW Diastolic Thickness 2.0 cm 0.6 - 1.0 / 0.6 - 0.9 cm LVPW Systolic Thickness 2.2 cm RV Chamber Size 2.6 cm LVOT Diameter 2.1 cm LV Ejection Fraction 2D Teich 16.2 % LV Ejection Fraction MOD 2C 65.0 % LV Ejection Fraction 2C AL 64.2 % LA Diameter 3.3 cm LA Width 3.0 cm LA Height 3.6 cm RA Width 2.7 cm RA Height 3.3 cm Aorta at Sinotubular Diameter 2.5 cm M-MODE LV Diastolic Diameter MM 6.4 cm 4.2 - 5.9 / 3.9 - 5.3 cm LV Systolic Diameter MM 4.1 cm LV Ejection Fraction MM Teich 65.4 % IVS Diastolic Thickness MM 1.0 cm 0.6 - 1.0 / 0.6 - 0.9 cm IVS Systolic Thickness MM 1.6 cm LVPW Diastolic Thickness MM 1.1 cm 0.6 - 1.0 / 0.6 - 0.9 cm LVPW Systolic Thickness MM 1.3 cm Aortic Annulus Diameter 2.7 cm LA Ao Ratio MM 1.2 MV E Point Septal Separation 0.3 cm DOPPLER AV Peak Velocity 149.0 cm/s LVOT Peak Velocity 140.0 cm/s AV Area Cont Eq vti 3.8 cm squared AV Area Cont Eq pk 3.1 cm squared MV Area PHT 4.9 cm squared Mitral E to A Ratio 1.1 MV E' Velocity 7.0 cm/s Mitral E to MV E' Ratio 14.8 Mitral E to LV E' Lateral Ratio 14.8 Mitral E to LV E' Septal Ratio 14.8 TR Peak Velocity 238.0 cm/s TR Peak Gradient 22.6 mmHg TV Peak E Velocity 64.0 cm/s Right Atrial Pressure 3.0 mmHg Pulmonary Artery Systolic Pressu 25.7 mmHg PV Peak Velocity 109.0 cm/s RV Acceleration Time 0.2 s RV Ejection Time 0.4 s RV AcT/ET 0.5 FINDINGS Left Ventricle Normal left ventricular cavity size. Increased left ventricular wall thickness. Normal left ventricular systolic function. Left ventricular ejection fraction is estimated at 60 %. No diagnostic regional wall motion abnormality. Indeterminate diastolic function. Right Ventricle Normal right ventricular size and systolic function. Normal right ventricular systolic pressure. Right ventricular systolic pressure 25.7 mmHg. Right Atrium Normal right atrial size. Left Atrium Normal left atrial size. Mitral Valve Structurally normal mitral valve. No mitral valve stenosis. No significant mitral valve regurgitation. Aortic Valve Aortic valve not well visualized. No aortic valve stenosis. No aortic valve regurgitation. Tricuspid Valve Tricuspid valve not well visualized. Pulmonic Valve Pulmonic valve not well visualized. No pulmonary valve stenosis. Pericardium No pericardial effusion. Echo free space anterior to the right ventricle likely represents a fat pad. Aorta Normal size aortic root and proximal ascending aorta. CONCLUSIONS 1. This is a technically difficult study. 2. Normal left ventricular cavity size and systolic function. Increased left ventricular wall thickness. Left ventricular ejection fraction is estimated at 60 %. No diagnostic regional wall motion abnormality. 3. No significant valvular abnormality. 4. No prior similar studies to compare. Olga Carrillo MD (Electronically Signed) Final Date: 09 April 2020 16:47 S
[2020-04-10] VITALS (17 sets, daily range): BP systolic 120–132; BP diastolic 71–77; PULSE 72–102; RESP 16–20; TEMP 36.4–36.7; O2SAT 91–97
[2020-04-10 01:23] LABS: Albumin Level 3.6 g/dL (3.5-5.2); Anion Gap 15.7 (5-19); Blood Urea Nitrogen 10 mg/dL (8-23); Calcium 8.6 mg/dL (8.5-10.5); Carbon Dioxide 24 mmol/L (22-29); Chloride 93 mmol/L (98-107); Glucose 133 mg/dL (65-115); Phosphorus 2.9 mg/dL (2.5-4.5); Potassium 3.7 mmol/L (3.5-5.1); Sodium 129 mmol/L (136-145)
[2020-04-10] MEDS: piperacillin-tazobactam 3.375 GM in sodium chloride 0.9% (plus) 50 ML IV ×3 (01:30→17:58)
[2020-04-10] MEDS: ipratropium-albuterol 3 mL Neb INHALATION ×4 (02:02→20:57)
[2020-04-10] MEDS: acetaminophen 325 mg Tablet 650 MG PO ×2 (05:14→08:53)
[2020-04-10 05:38] LABS: Basophils % 0.1 %; Hematocrit 34.8 % (37.0-47.0); Hemoglobin 11.9 g/dL (11.5-15.3); Lymphocytes # 1.6 10^3/uL (0.8-4.8); Lymphocytes % 9.2 %; Mean Corpuscular HGB Conc 34.2 g/dL (30.0-36.0); Mean Corpuscular Hemoglobin 31.9 pg (28.0-34.0); Mean Corpuscular Volume 93.3 fL (81-99); Mean Platelet Volume 9.5 fL (7.4-10.4); Monocytes # 1.7 10^3/uL (0.2-0.9); Monocytes % 9.5 %; Neutrophils # 13.67 10^3/uL (1.8-7.7); Neutrophils % 79.1 %; Nucleated Red Blood Cells % 0 %; Platelet Count 302 10^3/cmm (130-400); Red Blood Count 3.73 10^6/uL (4.1-5.3); Red Cell Distribution Width 11.8 % (12.1-15.1); White Blood Count 17.3 10^3/uL (4.0-10.0)
--- NOTE | 2020-04-10 06:00 | US_ITS ---
WS: [id number] ULTRASOUND ABDOMEN LIMITED CLINICAL INFORMATION: elevated LFTs COMPARISON: None. FINDINGS: Liver Size: Enlarged Craniocaudal length: 23.1 cm. Echogenicity: Heterogeneous Surface nodularity: None. Mass (size and location): Diffuse heterogeneous hepatic echotexture with multiple hypoechoic and targ etoid lesions with hypoechoic halo. Findings are suspicious for metastatic disease. This can be furth er evaluated with CT abdomen pelvis liver phase protocol. Bile ducts Intrahepatic ducts: Normal. Common bile duct diameter: 0.4 cm. Gallbladder Normal. Gallstones: None. Gallbladder sludge: None. Gallbladder wall thickening: None. Pericholecystic fluid: None. Sonographic Rangel sign: Absent. Pancreas Normal as visualized. Right kidney: Normal. Hydronephrosis: None. Size: 12.2 cm x 6.2 cm x 5.8 cm. Abdominal aorta and IVC Visualized portions are normal. Ascites: None. US/US abdomen limited 14500 IMPRESSION: 1. Hepatomegaly. 2. Diffuse heterogeneous liver echotexture with multiple hypoechoic and target oid-type lesions suspicious for metastatic disease. Recommend further evaluatio n with contrast-enhanced CT abdomen pelvis liver phase protocol. 3. Normal gallbladder. 4. No hydronephrosis in right kidney.
--- NOTE | 2020-04-10 06:00 | USCV_ITS ---
Pamela Jack Age: 64 Gender: F : 1955 Exam Date: 04/10/2020 06:18 Ordering Phys: Fuad Fraire MD Technologist: Wan Jack Exam Location: [facility] – [place] Indication: BILAT EDEMA HISTORY: Lower extremity edema. PROCEDURES: The venous duplex Doppler examination of both lower extremities was performed in the standard fashion. The following venous structures were evaluated: common femoral vein, profunda vein, proximal portion of the greater saphenous vein, superficial femoral vein, and the popliteal vein. In addition, the posterior tibial and peroneal trunk were evaluated. FINDINGS: Normal 2-D Doppler and augmentation and compressibility throughout the lower extremity venous structures. Additional imaging through the proximal calf veins also reveals no thrombus. Limited evaluation of the greater saphenous vein is patent with no thrombus.. CONCLUSIONS No evidence of right lower extremity DVT. No evidence of left lower extremity DVT. Jeremy Solorzano MD (Electronically Signed) Final Date: 10 April 2020 08:58 S
[2020-04-10 06:17] LABS: Alanine Aminotransferase 163 U/L (0-33); Albumin Level 3.4 g/dL (3.5-5.2); Alkaline Phosphatase 161 IU/L (35-105); Anion Gap 14.3 (5-19); Aspartate Amino Transferase 104 U/L (0-32); Blood Urea Nitrogen 9 mg/dL (8-23); Calcium 8.4 mg/dL (8.5-10.5); Carbon Dioxide 25 mmol/L (22-29); Chloride 93 mmol/L (98-107); Globulin 2.4 g/dL (1.3-4.6); Glucose 101 mg/dL (65-115); Magnesium 1.8 mg/dL (1.7-2.3); Osmolality Calculated 267 mOsm/kg (285-295); Potassium 3.3 mmol/L (3.5-5.1); Sodium 129 mmol/L (136-145); Total Bilirubin 0.4 mg/dL (0.15-1.2); Total Protein 5.8 g/dL (6.6-8.7)
[2020-04-10 06:18] LABS: NT Pro B Type Natriuretic Pept 698 pg/mL (0-125); Procalcitonin 8.77 ng/mL (0-0.5)
[2020-04-10 06:29] LABS: Albumin Level 3.6 g/dL (3.5-5.2); Anion Gap 15.6 (5-19); Blood Urea Nitrogen 9 mg/dL (8-23); Calcium 8.4 mg/dL (8.5-10.5); Carbon Dioxide 25 mmol/L (22-29); Chloride 92 mmol/L (98-107); Glomerular Filtration Rate 161.7 mL/min (90-130); Glucose 94 mg/dL (65-115); Phosphorus 3.2 mg/dL (2.5-4.5); Potassium 3.6 mmol/L (3.5-5.1); Sodium 129 mmol/L (136-145)
[2020-04-10] MEDS: enoxaparin 40 mg/0.4 mL Syringe SUBCUT (08:39)
[2020-04-10] MEDS: doxycycline 100 mg Tablet PO ×2 (08:40→17:59)
[2020-04-10] MEDS: predniSONE 20 mg Tablet 40 MG PO (08:40)
[2020-04-10] MEDS: FUROsemide 20 mg Tablet PO (08:40)
[2020-04-10] MEDS: morphine 4 mg/mL SDV 1 mL 2 MG IVP ×2 (11:26→13:27)
--- NOTE | 2020-04-10 11:54 | P.PN_ITS ---
Subjective Subjective: Interval history: patient is complaining of lower back pain. It is bilateral. Denies any weakness in the legs or incontinence. No radiation to her legs. Her breathing is about the same. She denies any shortness of breath. Reports cough. Denies chills. No nausea or vomiting. Medications: Reviewed: Yes Medication Review Details: Dose Route Start Last Admin Trade Name Eloise PRN Reason Stop Dose Admin Albuterol/Ipratrop ium 3 ml 04/08/20 21:53 04/09/20 14:44 Duoneb INHALATION 3 ml Q6H PRN Administration SHORTNESS OF MAG TH Furosemide 20 mg 04/08/20 21:53 04/09/20 08:35 Lasix PO 20 mg DAILY@0800 ANGEL Administration Sodium Chloride 1,000 mls @ 75 ml s/hr 04/08/20 17:00 04/08/20 17:53 Sodium Chloride 0.9% IV 75 mls/hr .[id number] ANGEL Administration Piperacillin Sod/T azobactam 50 mls @ 12.5 mls /hr 04/09/20 01:00 04/09/20 10:10 Sod 3.375 gm/ So dium Chloride IV 12.5 mls/hr Q8H ANGEL Administration Protocol Vancomycin HCl 1,5 00 mg/ 250 mls @ 166.667 mls/hr 04/08/20 23:00 04/09/20 16:26 Sodium Chloride IV 166.7 mls/hr Q8H ANGEL Administration Prednisone 40 mg 04/09/20 09:00 04/09/20 10:09 Prednisone PO 40 mg DAILY ANGEL Administration Vitals/I&O/Wt Last Vital Signs Temp 97.7 F 04/10/20 11:28 Pulse 87 04/10/20 11:28 Resp 18 04/10/20 11:28 BP 123/77 04/10/20 11:28 Pulse Ox 97 04/10/20 11:28 04/09/20 04/10/20 04/10/20 22:59 06:59 14:59 Intake Total 300 / 1200 250 / 1450 540 / 540 Output Total 400 / 400 Balance 300 / 1200 -150 / 1050 540 / 540 Weight last 48 hrs Weight 95.254 kg Physical Exam Narrative: EXAM NARRATIVE: AAO3 moderate distress due to the lower back pain. Evaluation of the area reveals no deformities, redness, or skin changes. Responses are adequate. Skin W/D MMM no JVD, supple. decreased BS BB. Minimal crackes. No respiratory distress S1, S2 reg S, NT, BS+ trace bl edema, no cyanosis or calf tenderness bl PERRL, EOMi, normal speech no focal muscle weakness Data : 04/10/20 04:27 04/10/20 04:27 Other Labs: Laboratory Results WBC 17.3 10^3/uL (4.0-10.0) H 04/10/20 04:27 RBC 3.73 10^6/uL (4.1-5.3) L 04/10/20 04:27 Hgb 11.9 g/dL (11.5-15.3) 04/10/20 04:27 Hct 34.8 % (37.0-47.0) L 04/10/20 04:27 MCV 93.3 fL (81-99) 04/10/20 04:27 MCH 31.9 pg (28.0-34.0) 04/10/20 04:27 MCHC 34.2 g/dL (30.0-36.0) 04/10/20 04:27 RDW 11.8 % (12.1-15.1) L 04/10/20 04:27 Plt Count 302 10^3/cmm (130-400) 04/10/20 04:27 MPV 9.5 fL (7.4-10.4) 04/10/20 04:27 Neut % (Auto) 79.1 % 04/10/20 04:27 Lymph % (Auto) 9.2 % 04/10/20 04:27 [place] % (Auto) 9.5 % 04/10/20 04:27 Eos % (Auto) 0.0 % 04/10/20 04:27 Baso % (Auto) 0.1 % 04/10/20 04:27 Neut # (Auto) 13.67 10^3/uL (1.8-7.7) H 04/10/20 04:27 Lymph # (Auto) 1.6 10^3/uL (0.8-4.8) 04/10/20 04:27 Montgomery # (Auto) 1.7 10^3/uL (0.2-0.9) H 04/10/20 04:27 Eos # (Auto) 0.0 10^3/uL (0.0-0.8) 04/10/20 04:27 Baso # (Auto) 0.0 10^3/uL (0.0-0.1) 04/10/20 04:27 Nucleated RBC % (auto) 0 % 04/10/20 04:27 Nucleated RBCs # 0.0 /100WBC 04/10/20 04:27 PT 13.80 SECONDS (12.1-14.9) 04/08/20 17:35 INR 1.02 (0.8-1.2) 04/08/20 17:35 D-Dimer 2.63 ug/mIFEU (0-0.59) H 04/08/20 17:35 Sodium 129 mmol/L (136-145) L 04/10/20 04:27 Sodium 129 mmol/L (136-145) L 04/10/20 04:27 Potassium 3.3 mmol/L (3.5-5.1) L 04/10/20 04:27 Potassium 3.6 mmol/L (3.5-5.1) 04/10/20 04:27 Chloride 92 mmol/L (98-107) L 04/10/20 04:27 Chloride 93 mmol/L (98-107) L 04/10/20 04:27 Carbon Dioxide 25 mmol/L (22-29) 04/10/20 04:27 Carbon Dioxide 25 mmol/L (22-29) 04/10/20 04:27 Anion Gap 14.3 (5-19) 04/10/20 04:27 Anion Gap 15.6 (5-19) 04/10/20 04:27 BUN 9 mg/dL (8-23) 04/10/20 04:27 BUN 9 mg/dL (8-23) 04/10/20 04:27 Creatinine 0.4 mg/dL (0.5-0.9) L 04/10/20 04:27 Creatinine 0.5 mg/dL (0.5-0.9) 04/10/20 04:27 GFR Calculation 125.0 mL/min (90-130) 04/10/20 04:27 GFR Calculation 161.7 mL/min (90-130) H 04/10/20 04:27 Glucose 94 mg/dL (65-115) 04/10/20 04:27 Glucose 101 mg/dL (65-115) 04/10/20 04:27 Calculated Osmolality 267 mOsm/kg (285-295) L 04/10/20 04:27 Lactic Acid 1.6 mmol/L (0.5-2.2) 04/08/20 17:35 Uric Acid 2.9 mg/dL (2.4-5.7) 04/08/20 19:23 Calcium 8.4 mg/dL (8.5-10.5) L 04/10/20 04:27 Calcium 8.4 mg/dL (8.5-10.5) L 04/10/20 04:27 Phosphorus 3.2 mg/dL (2.5-4.5) 04/10/20 04:27 Magnesium 1.8 mg/dL (1.7-2.3) 04/10/20 04:27 Total Bilirubin 0.4 mg/dL (0.15-1.2) 04/10/20 04:27 AST 104 U/L (0-32) H 04/10/20 04:27 ALT 163 U/L (0-33) H 04/10/20 04:27 Alkaline Phosphatase 161 IU/L (35-105) H 04/10/20 04:27 Troponin T Baseline 16 ng/L (0-10) H 04/08/20 17:35 Troponin T 120 Minute 12.87 ng/L (0-10) H 04/08/20 19:23 Delta Troponin T -3.13 ABS# (0-10) L 04/08/20 19:23 Troponin T Hi Sens 6Hr 15.54 ng/L (0-10) H 04/08/20 22:35 Troponin T Hi Sens 6Hr Delta -0.46 ng/L (0-12) L 04/08/20 22:35 C-Reactive Protein 8.5 mg/L (0.0-4.9) H 04/08/20 17:35 NT-Pro-B Natriuret Pep 698 pg/mL (0-125) H 04/10/20 04:27 Total Protein 5.8 g/dL (6.6-8.7) L 04/10/20 04:27 Albumin 3.4 g/dL (3.5-5.2) L 04/10/20 04:27 Albumin 3.6 g/dL (3.5-5.2) 04/10/20 04:27 Globulin 2.4 g/dL (1.3-4.6) 04/10/20 04:27 Procalcitonin 8.77 ng/mL (0-0.5) H 04/10/20 04:27 TSH 0.56 uIU/mL (0.27-4.20) 04/08/20 19:23 Ur Random Sodium 38 mmol/L 04/08/20 01:15 Vancomycin Trough 13.4 ug/mL (10-15) 04/09/20 13:52 Influenza Type A Ag Negative (Negative) 04/08/20 17:35 Influenza Type B Ag Negative (Negative) 04/08/20 17:35 SARS-CoV-2 Ag (Rapid) Negative (Negative) 04/08/20 17:35 Impressions Chest X-Ray 04/08/20 16:50 IMPRESSION: 1. Bibasilar airspace disease. 2. Right pleural effusion. Abdomen Ultrasound 04/10/20 06:00 IMPRESSION: 1. Hepatomegaly. 2. Diffuse heterogeneous liver echotexture with multiple hypoechoic and targetoid-type lesions suspicious for metastatic disease. Recommend further evaluation with contrast-enhanced CT abdomen pelvis liver phase protocol. 3. Normal gallbladder. 4. No hydronephrosis in right kidney. Micro: Microbiology 04/08/20 17:35 Blood Culture - Preliminary Blood NEGATIVE TO DATE 04/08/20 18:59 Blood Culture - Preliminary Blood NEGATIVE TO DATE 04/08/20 01:15 Legionella Urinary Antigen - Final Urine,Voided Bacterial Antigens - Final A&P Assessment and plan (1) Community acquired pneumonia: Status: Acute (2) Orthopnea: Status: Acute (3) Polydipsia: Status: Acute (4) Hyponatremia: Status: Acute (5) New onset of congestive heart failure: Status: Acute (6) Abnormal transaminases: Status: Acute (7) Sepsis: Status: Acute Additional A&P Information Community-acquired pneumonia Severe sepsis, sepsis criteria met with tachypnea, leukocytosis, chest x-ray reveals bilateral infiltrates, high procalcitonin and d-dimer Patient has failed 3 outpatient antibiotics, I would use vancomycin and Zosyn along steroids DuoNeb every 4h Legionella, bacterial antigen requested Blood culture obtained COVID antigen negative Abnormal transaminases with high alkaline phosphatase Would request gallbladder ultrasound, gram-negative anaerobic coverage with Zosyn Of note, she has right-sided heart failure features which could be responsible for abnormal LFTs, considering active sepsis I would continue antibiotics High d-dimer Currently patient is in sinus rhythm not hypoxic, saturating well on room air I would anticoagulate with Lovenox for now until she is able to lay flat for CTA chest to rule out PE New onset congestive heart failure Patient has [id number] smoking history, most likely underlying lung pathology is responsible for right-sided heart failure Low-dose Lasix, echo in the morning, follow-up with TSH Hyponatremia without neurological signs or symptoms Sodium 120 No previous sodium to compare Patient is endorsing polydipsia drinking 1 to 1.5 gallons of water every day because she was afraid of kidney injury due to 3 different antibiotic usage at home Clinically looks mildly fluid overloaded, I would not use fluids for now, would give a trial of Lasix Discontinue fluids for now Serum, urine osmolarity, urine sodium, TSH, uric acid ordered She is not on any antidepressant DVT prophylaxis: Currently on therapeutic dose of Lovenox Cardiac diet Full code [place] BL PNA.slightly improved symptoms. However I am concerned about leukocytosis and elevated pro-calcitonin. adding doxycycline to Zosyn and vancomycin. I'll recheck pro-calcitonin in the morning again. Ordering CT chest abdomen and pelvis. Ultrasound of the abdomen revealed possible liver metastatic lesions. Echo report without significant abnormalities. EF is 60%. Continue small dose of Lasix. I doubt PE. Patient's white blood cells are elevated, procalcitonin is elevated. Additionally she is not hypoxic beyond what we would expect from bilateral pneumonia. Doppler ultrasound of the lower extremities were was negative for DVT. D-dimer could be elevated due to acute inflammation. Hyponatremia. 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 Could be secondary to lung disease or malignancy. However I believe polydipsia also contributes to the low sodium level. Currently improving. Continue fluid restriction and liberalized diet. Continue monitoring chemistry panel. Adjust treatments as needed. Possible liver metastatic lesions seen on abdominal ultrasound. Ordering CT of the chest, abdomen, pelvis.elevated LFTs could be due to disease process. lower back pain. I doubt this is due to pneumonia itself. It would assume that she has cancer the back pain could be due to metastases to her bones. We'll see what the new CT will show and go from there. Ordered morphine as needed. Elevated troponin. This could be secondary to #1. No chest pain. Normal echo and resolved EKG changes. Will recommend outpatient cardiac evaluation. DVT prophylaxis. Lovenox prophylactic dose. The plan of care was discussed with the patient. She verbalized understanding and agreement. Attestations Medical Necessity Statement*: the plan of care requires that she remains hospitalized until we clarify what going on with her finalized treatments. Coding Level of Care Code Acute Polymerization Oven Tender for g Fwd Diagnoses Community acquired pneumonia J18.9 Orthopnea R06.01 Polydipsia R63.1 Hyponatremia E87.1 New onset of congestive heart failure I50.9 Abnormal transaminases R74.8 Sepsis A41.9
[2020-04-10 12:40] LABS: Albumin Level 3.7 g/dL (3.5-5.2); Blood Urea Nitrogen 13 mg/dL (8-23); Calcium 8.8 mg/dL (8.5-10.5); Carbon Dioxide 24 mmol/L (22-29); Chloride 92 mmol/L (98-107); Glomerular Filtration Rate 84.8 mL/min (90-130); Glucose 115 mg/dL (65-115); Phosphorus 2.9 mg/dL (2.5-4.5); Sodium 128 mmol/L (136-145)
[2020-04-10 12:45] LABS: Anion Gap 15.6 (5-19); Potassium 3.6 mmol/L (3.5-5.1)
[2020-04-10 12:49] LABS: Procalcitonin 11.37 ng/mL (0-0.5)
--- NOTE | 2020-04-10 14:23 | CT_ITS ---
WS: [id number] CT CHEST, ABDOMEN, AND PELVIS TECHNIQUE: Contrast-enhanced CT of the chest, abdomen, and pelvis with coronal and sagittal reformatt ed images. CLINICAL INFORMATION: EVALUATION OF LIVER METASTATIC LESIONS, ?PNA, PLEURAL EFFUS. COMPARISON: Ultrasound April 10, 2020 DLP: 2631.[address] scans at [facility] use at least one of these dose optimization techniques: automat ed exposure control; mA and/or kV adjustment per patient size (includes targeted exams where dose is matched to clinical indication); or iterative reconstruction. CT CHEST: Large right hilar and suprahilar mass consistent with neoplasm. Right hilar mass measuring 4.1 x 4.5 x 6.1 cm. Compression of the right distal main pulmonary artery with partial occlusion of the right u pper lobe and right middle lobe pulmonary arteries. Adjacent satellite nodules with soft tissue thick ening along the anterior chest wall and mediastinum consistent with additional disease. This involves the right middle lobe with additional satellite nodules in the right middle lobe and extending along the fissure. Suprapatellar mass extends into the anterior mediastinum measuring 3.2 x 3.3 CM. Mass e ffect with moderate narrowing of the right main pulmonary artery with occlusion of the right upper an d middle lobe pulmonary artery branches. Left hilar lymphadenopathy. Subcarinal and right hilar lymph adenopathy. Postobstructive pneumonia in the right middle lobe and right lower lobe with compression of the right distal main stem bronchus. Moderate right pleural effusion. Compressive atelectasis in right middle lobe and right lower lobe. Numerous metastatic nodules in the left lower lobe the largest measuring 2 .0 cm. Additional smaller metastatic lesions in the left upper lobe. Numerous nodular metastatic les ions aren't along the right cardiophrenic angle anteriorly the largest measuring 2.0 CM. No axillary lymphadenopathy. Soft tissue nodule along the left lateral chest wall measuring 11 mm. Ad ditional tiny suspected metastatic implant in the right upper abdominal wall. A few hazy groundglass infiltrates in the left upper lobe and left lower lobe laterally. CT ABDOMEN AND PELVIS: Innumerable peripheral enhancing masslike lesions throughout both hepatic lobes compatible with metas tatic disease. Hepatomegaly. Portal vein and splenic vein appear patent. Normal spleen. Normal GE thomas ction. Adrenal glands are normal. Normal renal parenchymal enhancement. No hydronephrosis. Normal vis ualized pancreas. Normal caliber abdominal aorta. Multiple mainly subcentimeter metastatic peritoneal implants in the upper and mid abdomen. No signifi cant periaortic lymphadenopathy. No pelvic or inguinal lymphadenopathy. Metastatic implant along the right diaphragm extending to the upper abdomen. Normal sigmoid colon. No evidence of small or large bowel obstruction. No definite visualized metast atic lesions in the thoracic and lumbar spine. CT/CT chest abd pel w con* IMPRESSION: 1. Enlarged right hilar and suprahilar mass consistent with neoplasm described above. 2. Moderate narrowing involving the distal main pulmonary artery. Narrowing wi th occlusion/near occlusion involving the right superior and middle lobe pulmon dorina artery branches. Left main pulmonary artery is patent. 3. Numerous metastatic lesions visualized throughout both lungs with pleural t hickening and anterior mediastinal implants in the right middle lobe and right cardiophrenic angle anteriorly. 4. Anterior mediastinal, AP window, and hilar lymphadenopathy. Subcarinal lymp hadenopathy. 5. Small moderate right pleural effusion with postobstructive pneumonia in rig ht middle and right lower lobes.. 6. Hepatomegaly with innumerable enhancing metastatic lesions consistent with metastatic disease. 7. A few subcentimeter metastatic abdominal omental implants 8. No periaortic or pelvic lymphadenopathy. No inguinal lymphadenopathy. Notified Fuad Fraire at 04/10/2020 3:58 PM.
[2020-04-10] MEDS: iohexol 300 mg/mL 100 mL Btl IV (14:43)
[2020-04-10 15:17] LABS: Osmolality Urine 451 mOsm/kg (50-1200)
[2020-04-10 15:17] LABS: Osmolality Serum 258 mOsm/kg (278-305)
[2020-04-10] MEDS: morphine 4 mg/mL SDV 1 mL IVP ×3 (15:35→20:52)
--- NOTE | 2020-04-10 16:43 | PC.RESP ---
Smoking Cessation information to patient.
[2020-04-11] VITALS (12 sets, daily range): BP systolic 125–145; BP diastolic 63–85; PULSE 73–106; RESP 16–22; TEMP 36.4–36.7; O2SAT 90–97
[2020-04-11] MEDS: piperacillin-tazobactam 3.375 GM in sodium chloride 0.9% (plus) 50 ML IV ×2 (00:56→08:42)
[2020-04-11 05:38] LABS: Basophils % 0.2 %; Hematocrit 36.2 % (37.0-47.0); Hemoglobin 12.2 g/dL (11.5-15.3); Lymphocytes % 4.6 %; Mean Corpuscular HGB Conc 33.7 g/dL (30.0-36.0); Mean Corpuscular Hemoglobin 31.5 pg (28.0-34.0); Mean Corpuscular Volume 93.5 fL (81-99); Mean Platelet Volume 9.5 fL (7.4-10.4); Monocytes # 2.1 10^3/uL (0.2-0.9); Monocytes % 9.4 %; Neutrophils # 18.64 10^3/uL (1.8-7.7); Neutrophils % 84.4 %; Nucleated Red Blood Cells % 0 %; Platelet Count 293 10^3/cmm (130-400); Red Blood Count 3.87 10^6/uL (4.1-5.3); Red Cell Distribution Width 12.1 % (12.1-15.1); White Blood Count 22.1 10^3/uL (4.0-10.0)
[2020-04-11 06:04] LABS: Alanine Aminotransferase 140 U/L (0-33); Albumin Level 3.6 g/dL (3.5-5.2); Alkaline Phosphatase 177 IU/L (35-105); Anion Gap 17.6 (5-19); Aspartate Amino Transferase 70 U/L (0-32); Blood Urea Nitrogen 23 mg/dL (8-23); Calcium 8.8 mg/dL (8.5-10.5); Carbon Dioxide 22 mmol/L (22-29); Chloride 93 mmol/L (98-107); Globulin 2.7 g/dL (1.3-4.6); Glomerular Filtration Rate 22.6 mL/min (90-130); Glucose 131 mg/dL (65-115); Magnesium 1.8 mg/dL (1.7-2.3); Osmolality Calculated 273 mOsm/kg (285-295); Potassium 3.6 mmol/L (3.5-5.1); Sodium 129 mmol/L (136-145); Total Bilirubin 0.5 mg/dL (0.15-1.2); Total Protein 6.3 g/dL (6.6-8.7)
[2020-04-11 06:08] LABS: Procalcitonin 33.58 ng/mL (0-0.5)
[2020-04-11] MEDS: FUROsemide 20 mg Tablet PO (07:53)
[2020-04-11] MEDS: enoxaparin 40 mg/0.4 mL Syringe SUBCUT (07:53)
[2020-04-11] MEDS: doxycycline 100 mg Tablet PO ×2 (08:41→17:27)
[2020-04-11] MEDS: predniSONE 20 mg Tablet 40 MG PO (08:41)
[2020-04-11] MEDS: ipratropium-albuterol 3 mL Neb INHALATION ×3 (09:00→20:46)
--- NOTE | 2020-04-11 11:08 | PM.PN ---
Subjective Subjective: Interval history: Reports not feeling well. Reports cough and mucus. Reports generalized weakness. No chills. No nausea or vomiting. No diarrhea. No abdominal pain. The back pain is well controlled. Medications: Reviewed: Yes Medication Review Details: Generic Name Dose Route Start Last Admin Trade Name Yakovq PRN Reason Stop Dose Admin Acetaminophen 650 mg 04/09/20 18:35 04/10/20 08:53 Tylenol PO 650 mg Q6H PRN Administration MILD PAIN Albuterol/Ipratrop ium 3 ml 04/08/20 21:53 04/11/20 09:00 Duoneb INHALATION 3 ml Q6H PRN Administration SHORTNESS OF MAG TH Doxycycline Monohy drate 100 mg 04/10/20 09:00 04/11/20 08:41 Vibramycin PO 100 mg BID ANGEL Administration Protocol Enoxaparin Sodium 40 mg 04/10/20 08:00 04/11/20 07:53 Lovenox SUBCUT 40 mg Q24H ANGEL Administration Furosemide 20 mg 04/08/20 21:53 04/11/20 07:53 Lasix PO 20 mg DAILY@0800 ANGEL Administration Sodium Chloride 1,000 mls @ 75 ml s/hr 04/08/20 17:00 04/08/20 17:53 Sodium Chloride 0.9% IV 75 mls/hr .[id number] ANGEL Administration Morphine Sulfate 4 mg 04/10/20 15:22 04/10/20 20:52 Morphine IVP 4 mg Q2H PRN Administration SEVERE PAIN Prednisone 40 mg 04/09/20 09:00 04/11/20 08:41 Prednisone PO 40 mg DAILY ANGEL Administration Vitals/I&O/Wt Last Vital Signs Temp 97.7 F 04/11/20 07:48 Pulse 0 L 04/11/20 09:03 Resp 20 H 04/11/20 09:01 BP 125/66 04/11/20 07:48 Pulse Ox 94 04/11/20 09:01 04/10/20 04/11/20 04/11/20 22:59 06:59 14:59 Intake Total 750 / 1700 300 / 2000 0 / 0 Output Total 450 / 450 Balance 750 / 1700 -150 / 1550 0 / 0 Physical Exam Narrative: EXAM NARRATIVE: AAO3 Responses are adequate. Normal mood. No acute distress Skin W/D MMM no JVD, supple. decreased BS BB. Bilateral crackles. No respiratory distress. No hemoptysis S1, S2 reg S, NT, BS+ trace bl edema, no cyanosis or calf tenderness bl PERRL, EOMi, normal speech no focal muscle weakness Data : 04/11/20 04:40 04/11/20 04:40 A&P Assessment and plan (1) Community acquired pneumonia: Status: Acute (2) Orthopnea: Status: Acute (3) Polydipsia: Status: Acute (4) Hyponatremia: Status: Acute (5) New onset of congestive heart failure: Status: Acute (6) Abnormal transaminases: Status: Acute (7) Sepsis: Status: Acute Additional A&P Information Community-acquired pneumonia Severe sepsis, sepsis criteria met with tachypnea, leukocytosis, chest x-ray reveals bilateral infiltrates, high procalcitonin and d-dimer Patient has failed 3 outpatient antibiotics, I would use vancomycin and Zosyn along steroids DuoNeb every 4h Legionella, bacterial antigen requested Blood culture obtained COVID antigen negative Abnormal transaminases with high alkaline phosphatase Would request gallbladder ultrasound, gram-negative anaerobic coverage with Zosyn Of note, she has right-sided heart failure features which could be responsible for abnormal LFTs, considering active sepsis I would continue antibiotics High d-dimer Currently patient is in sinus rhythm not hypoxic, saturating well on room air I would anticoagulate with Lovenox for now until she is able to lay flat for CTA chest to rule out PE New onset congestive heart failure Patient has [id number] smoking history, most likely underlying lung pathology is responsible for right-sided heart failure Low-dose Lasix, echo in the morning, follow-up with TSH Hyponatremia without neurological signs or symptoms Sodium 120 No previous sodium to compare Patient is endorsing polydipsia drinking 1 to 1.5 gallons of water every day because she was afraid of kidney injury due to 3 different antibiotic usage at home Clinically looks mildly fluid overloaded, I would not use fluids for now, would give a trial of Lasix Discontinue fluids for now Serum, urine osmolarity, urine sodium, TSH, uric acid ordered She is not on any antidepressant DVT prophylaxis: Currently on therapeutic dose of Lovenox Cardiac diet Full code [place] Pneumonia. Postobstructive. Has right hilar and suprahilar mass which causing the obstruction. There is also right-sided pleural effusion. She is not improving with current antibiotics. Switching the antibiotics to doxycycline, linezolid, and meropenem. Discussed with Dr. Jordan yesterday. He kindly agreed to see the patient. Spoke with respiratory therapist. I asked to use Acapella and respiratory treatments. Hyponatremia. 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 Possibly it is secondary to lung disease and malignancy. However I believe polydipsia also contributes to the low sodium level. Improved and stable. Continue fluid restriction and liberalized diet. Continue monitoring chemistry panel. Adjust treatments as needed. Cancer with lung mass and numerous metastatic lesions throughout both lungs and liver. Biopsy of the liver lesion will be performed today. Hopefully will have the results of pathology report soon. Will consult oncologist at that time. Discussed with Dr. Jordan. I also informed the patient about these findings. I gave her a copy of the report. Acute kidney injury. I suspect this is secondary to vancomycin. I discussed this with the pharmacist. We adjusted her antibiotics. We will continue hydration and monitoring. We will consider nephrology consult if it continues worsening. Elevated troponin. This could be secondary to #1. No chest pain. Normal echo and resolved EKG changes. Will recommend outpatient cardiac evaluation. DVT prophylaxis. Lovenox prophylactic dose. The plan of care was discussed with the patient. She verbalized understanding and agreement. Attestations Medical Necessity Statement*: The plan of care requires her to remain hospitalized. Coding Level of Care Code Acute Tractor Mechanic Apprentice for aidee Pratt Diagnoses Community acquired pneumonia J18.9 Orthopnea R06.01 Polydipsia R63.1 Hyponatremia E87.1 New onset of congestive heart failure I50.9 Abnormal transaminases R74.8 Sepsis A41.9
[2020-04-11] MEDS: meropenem 1,000 MG in sodium chloride 0.9% (plus) 50 ML 200 MG IV (11:49)
--- NOTE | 2020-04-11 12:40 | PC.NURSE ---
Bedside with Dr. Jordan to perform a right thoracentesis and liver biopsy via US. Staff present includes Lor Martinez, RN, Supervisor [employer] of Critical Care, Dr. Jordan, Lard Refiner, Lu Villanueva, RN, MSN, Supervisor [employer] of Med/Surg, and Elsy Dunn RN, primary care nurse for this patient. Consent completed with Dr. Jordan at bedside at 1225 and time out performed at 1228. Dr. Jordan administered topical anesthetic starting at 1241. Began fluid removal at 1245. Removed 1200cc of clear, serous fluid completed at 1255.
[2020-04-11] MEDS: morphine 4 mg/mL SDV 1 mL 2 MG IVP (13:04)
[2020-04-11 14:45] LABS: Body Fluid Polynuclear #Cells 0.049; Body Fluid WBC 686 /uL; Monocytes # Body Fluid 0.637
[2020-04-11 14:46] LABS: Apprearance, Body Fluid CLEAR; Color, Body Fluid PALE YELLOW; PATH Referral YES
--- NOTE | 2020-04-11 14:55 | PM.ACPR ---
Procedure/Consent Time out: Time Out Performed: Yes Consent: Consent for Procedure: Consent obtained from patient Procedure Narrative: Name of the procedure: Right thoracentesis. Indication: Suspicion for malignant pleural effusion Anesthetics: Local anesthesia with 1% lidocaine. IV pain medication: None. Description of the procedure: The procedure was explained to the patient in detail including the risks and a consent was obtained. The right hemithorax was scanned with ultrasound to find a safe fluid pocket. Moderate free-flowing fluid was noted. There was increased cellularity of the pleural fluid. Following identification of the fluid pocket the site was marked. The site was cleaned using sterile technique. Lidocaine 1% was injected into the skin and the subcutaneous tissue. Subsequently, the periosteum in the parietal pleural was also anesthetized using lidocaine. The pleural space was entered in the posterior axillary line in the right eighth intercostal space. Serous fluid was aspirated. About 1100 cc of fluid was aspirated. Sample: The pleural fluid was sent for cell count and differential, pH, protein, LDH, albumin, Gram stain and culture, fungal stain and culture, AFB stain and culture and cytology. Complications: None. Acute Procedures Epistaxis Control: Time out performed: Yes
--- NOTE | 2020-04-11 14:57 | P.PCN_ITS ---
Procedure/Consent Time out: Time Out Performed: Yes Consent: Consent for Procedure: Consent obtained from patient Procedure Narrative: Name of the procedure: Ultrasound-guided fine-needle aspiration of the liver mass. Sedation: Morphine 2 mg IV once. Local anesthesia: Lidocaine 1% 10 mL. Description of the procedure: The patient was optimally positioned. The liver was scanned to identify possible metastatic liver lesions. Innumerable liver lesions were identified. The site was prepared using sterile technique. The skin and subcutaneous tissue was anesthetized with 1% lidocaine. Using real- time ultrasound fine-needle aspiration from the liver mass was performed. The patient tolerated the procedure well. There was no bleeding. Samples: The samples were sent in formalin and also for corrective preparation. Acute Procedures Epistaxis Control: Time out performed: Yes
[2020-04-11] MEDS: lidocaine 1% INJ 20 mL 5 ML XX (15:08)
[2020-04-11 15:10] LABS: LDH Pleural Fluid 255 U/L; Total Protein Pleural Fluid 2.6 g/dL
--- NOTE | 2020-04-11 15:26 | PM.CONSULT ---
Providers/Reason For Consult Consulting Physican/Specialty*: Pulmonary and critical care medicine Reason for Consult*: Evaluation for suspected metastatic lung malignancy. Attending Physician: Fuad Fraire Primary Care Provider: Mariam Mckeon History of Present Illness History of Present Illness Pamela Jack is a 64 year old female who presented to the hospital on April 08 with worsening shortness of breath that started 3 to 4 weeks ago. During the course of the evaluation in the hospital, the patient was found to have likely metastatic cancer as the etiology. The initial chest x-ray revealed a right-sided pleural effusion. This was further evaluated by a CT scan of the chest abdomen and pelvis in the setting of elevated liver enzymes. The figueroa CT scan revealed hilar and suprahilar mass on the right side. Narrowing of the distal main pulmonary artery secondary to the medicine no mass. And multiple metastatic lesions are noted in the pleura, liver and possible omental metastasis. I was asked to evaluate the patient for possible thoracentesis and a diagnosis of malignancy. The patient was seen and examined today. The patient appeared mildly uncomfortable from shortness of breath. She told me that she had been suffering from shortness of breath for the last few weeks. The patient has an extensive history of smoking. She denies any weight loss. Her laboratory work-up is consistent with leukocytosis, hyponatremia, DIONISIO and elevated liver enzymes. Review of Systems Narrative: She denied any fever, night sweats, weight loss, loss of appetite, hemoptysis. The patient complains of chronic body ache, fatigue and chills. As mentioned in the HPI, the patient has shortness of breath and orthopnea, occasional bilateral lower extremity swelling. Meds/Allergies Home Medications and Allergies Home Medications Medication Instructions Recorded Confirmed Last Taken Type albuterol sulfate 2 puff INHALATION 6XD PRN 04/08/20 04/08/20 Unknown History doxycycline hyclate 100 mg PO BID 04/08/20 04/08/20 04/08/20 History ipratropium-albuterol 3 ml INHALATION QID 04/08/20 04/08/20 04/08/20 History prednisone See Rx Instructions .ROUTE .COMPLEX 04/08/20 04/08/20 04/08/20 History Allergies Allergy/AdvReac Type Severity Reaction Status Date / Time No Known Allergies Allergy Verified 04/08/20 18:48 Current Medications Current Medications Generic Name Dose Route Start Last Admin Trade Name Freq PRN Reason Stop Dose Admin Acetaminophen 650 mg 04/09/20 18:35 04/10/20 08:53 Tylenol PO 650 mg Q6H PRN Administration MILD PAIN Albuterol/Ipratropium 3 ml 04/08/20 21:53 04/11/20 14:12 Duoneb INHALATION 3 ml Q6H PRN Administration SHORTNESS OF BREATH Doxycycline Monohydrate 100 mg 04/10/20 09:00 04/11/20 08:41 Vibramycin PO 100 mg BID ANGEL Administration Protocol Sodium Chloride 1,000 mls @ 75 mls/hr 04/08/20 17:00 04/08/20 17:53 Sodium Chloride 0.9% IV 75 mls/hr .[id number] ANGEL Administration Meropenem 1,000 mg/ Sodium 50 mls @ 200 mls/hr 04/11/20 12:00 04/11/20 11:49 Chloride IV 200 mls/hr Q12H ANGEL Administration Morphine Sulfate 4 mg 04/10/20 15:22 04/10/20 20:52 Morphine IVP 4 mg Q2H PRN Administration SEVERE PAIN Prednisone 40 mg 04/09/20 09:00 04/11/20 08:41 Prednisone PO 40 mg DAILY ANGEL Administration PFSH Acute PFSH: Medical History No pertinent past medical history Surgical History No pertinent past surgical history Family History Mother CAD (coronary artery disease) Social History Smoking and tobacco status: current every day smoker cigarettes [ Other cigarette details: [id number] smoking history ] Alcohol intake: former Substance/Drug Use: never Household members: family Housing: House Vitals/I&O/Wt Last Vital Signs Temp 97.6 F 04/11/20 11:50 Pulse 79 04/11/20 14:16 Resp 22 H 04/11/20 14:12 BP 143/84 04/11/20 11:50 Pulse Ox 92 04/11/20 14:12 04/11/20 04/11/20 04/11/20 06:59 14:59 22:59 Intake Total 300 / 2000 0 / 0 Output Total 450 / 450 Balance -150 / 1550 0 / 0 Physical Exam Narrative: EXAM NARRATIVE: General: Patient is awake alert and oriented, in mild distress Neck: No JVD Respiratory: Auscultation: Reduced breath sound in the right lower lung zone, no crackles or wheezing, occasional rhonchi Cardiovascular: Regular rate and rhythm, S1-S2 present, no murmur, no peripheral edema. Abdomen: Soft, nontender, distended from obesity, hepatomegaly with irregular liver surface Skin: No rash Neuro: Mental status is normal, mild ptosis, normal motor and coordination. Data Other Data: Attestation for Other Data: I personally reviewed and interpreted the following: Other data: I have reviewed the patient laboratory, microbiologic and radiologic data. Please see the HPI for details. A&P Assessment and plan (1) Metastatic cancer: The patient most likely is suffering from metastatic cancer contributing to all her symptoms. She is currently getting treated for pneumonia however it is possible that all of this is secondary to the malignancy. Given the patient's hyponatremia and profound metastatic disease, history of smoking I believe this could easily be metastatic small cell lung cancer. I am going to obtain a liver biopsy as well as a pleural fluid analysis and cytology. Status: Acute (2) Pleural effusion: This is likely secondary to malignancy. The patient will likely need a Pleurx catheter in the future. The patient will likely require chemotherapy as inpatient. 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
--- NOTE | 2020-04-11 16:47 | PTH.FRZRPT ---
Frozen Section Notes Specimen(s): Liver biopsy Gross: The specimen is received fresh on a tephla tissue with cores ranging in size from 0.1 to 0.3 cm. A cytology?touch preparation as performed and four Diff-Quik slides are reviewed. The remainder of the specimen is submitted in cassette A1. Preliminary Impression: Liver, cores (touch preparation), cytology: ?Positive for malignancy. ?Favor metastatic carcinoma. Comment: The biopsy material has been collected, once processed additional ancillary studies will be performed on the block to further classify the primary tumor. - Specimen Information Pathologist: Nikolas Hardy Date: 04/11/20 Specimen reported at what time: 15:00 - Clinician Specimen collection time: 14:45 Clinician reported to: Karina Jordan
[2020-04-11] MEDS: linezolid premix 600 MG/300 ML PREMIX 300 MG IV (17:27)
[2020-04-12] VITALS (11 sets, daily range): BP systolic 98–132; BP diastolic 64–76; PULSE 64–164; RESP 17–22; TEMP 36.4–37.2; O2SAT 91–96
[2020-04-12 05:06] LABS: Basophils % 0.1 %; Hematocrit 36.5 % (37.0-47.0); Hemoglobin 12.4 g/dL (11.5-15.3); Lymphocytes # 0.8 10^3/uL (0.8-4.8); Lymphocytes % 3.1 %; Mean Corpuscular Hemoglobin 31.4 pg (28.0-34.0); Mean Corpuscular Volume 92.4 fL (81-99); Mean Platelet Volume 9.6 fL (7.4-10.4); Monocytes # 1.5 10^3/uL (0.2-0.9); Monocytes % 5.8 %; Neutrophils # 22.33 10^3/uL (1.8-7.7); Neutrophils % 89.2 %; Nucleated Red Blood Cells % 0 %; Platelet Count 261 10^3/cmm (130-400); Red Blood Count 3.95 10^6/uL (4.1-5.3); Red Cell Distribution Width 12.1 % (12.1-15.1)
[2020-04-12 07:06] LABS: Alanine Aminotransferase 90 U/L (0-33); Alkaline Phosphatase 155 IU/L (35-105); Blood Urea Nitrogen 32 mg/dL (8-23); Calcium 9.8 mg/dL (8.5-10.5); Carbon Dioxide 20 mmol/L (22-29); Chloride 92 mmol/L (98-107); Glomerular Filtration Rate 12.4 mL/min (90-130); Glucose 150 mg/dL (65-115); Osmolality Calculated 274 mOsm/kg (285-295); Sodium 127 mmol/L (136-145); Total Bilirubin 0.3 mg/dL (0.15-1.2)
[2020-04-12 07:07] LABS: Anion Gap 18.7 (5-19); Aspartate Amino Transferase 44 U/L (0-32); Potassium 3.7 mmol/L (3.5-5.1)
[2020-04-12] MEDS: enoxaparin 30 mg/0.3 mL Syringe SUBCUT (08:41)
[2020-04-12] MEDS: doxycycline 100 mg Tablet PO ×2 (08:41→18:08)
[2020-04-12] MEDS: predniSONE 20 mg Tablet 40 MG PO (08:41)
--- NOTE | 2020-04-12 10:50 | P.CONIM_ITS ---
Providers/Reason For Consult Consulting Physican/Specialty*: Nephrology Reason for Consult*: Acute kidney failure Attending Physician: Fuad Fraire Primary Care Provider: Mariam Mckeon History of Present Illness History of Present Illness Thanks for consultation. This is a pleasant 64 YoF presenting with SOB and cough increasing for the last few weeks. She received outpatient Abx including doxycycline, augmentin and Bactrim but didn't improve. Here she had a CT scan that showed a large hilar and suprahilar mass consistent with neoplasm and post obstructive pneumonia as well as widespread metastatic lesions. She was given Vanco, Zyvoc and Zosyn and remains on Doxy and Merrem. Vanco trough was recorded at 13.4. Cough and no hemoptyisis thoracentesis yesterday and took 1200ml. Hemodynamics have been robust since admission. Creatinine on admission was normal (actually quite low at 0.3mg/dL) but has increased over the last 2 days and is now 3.7mg/dL. Her urine output over the last 24hrs recorded at 370mL. Additionally her admission sodium was 120, correcting now to 127. 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 No thiazide use at home. Fluid restriction since admission. No ivf at this time. She underwent liver biopsy of one of the masses yesterday. The results are still pending. No other nephrotoxic exposures including NSAIDs etc. No edema and no other volume related symptoms. No uremic Sx She is a daily smoker. Some dysphagia and eating a soft diet. Weight has been stable. Review of Systems Narrative: ROS - 12 point review of systems completed per HPI and subjective assessment, this includes Constitutional: No weakness, fatigue Respiratory: Mild SOB on exertion, comfortable at rest CardioVasc: No chest pain, palpitations Gastrointestinal: No nausea, no vomiting Neurological: No seizures, no AMS Derm: No new rashes, lesions or wounds Immunological: No seasonal and no food allergies Meds/Allergies Home Medications and Allergies Home Medications Medication Instructions Recorded Confirmed Last Taken Type albuterol sulfate 2 puff INHALATION 6XD PRN 04/08/20 04/08/20 Unknown History doxycycline hyclate 100 mg PO BID 04/08/20 04/08/20 04/08/20 History ipratropium-albuterol 3 ml INHALATION QID 09/04/08/20 04/08/20 History prednisone See Rx Instructions .ROUTE .COMPLEX 04/08/20 04/08/20 04/08/20 History Allergies Allergy/AdvReac Type Severity Reaction Status Date / Time linezolid Allergy ALGY-Difficulty Verified 04/11/20 18:25 Breathing Current Medications Current Medications Generic Name Dose Route Start Last Admin Trade Name Freq PRN Reason Stop Dose Admin Acetaminophen 650 mg 04/09/20 18:35 04/10/20 08:53 Tylenol PO 650 mg Q6H PRN Administration MILD PAIN Albuterol/Ipratropium 3 ml 04/08/20 21:53 04/11/20 20:46 Duoneb INHALATION 3 ml Q6H PRN Administration SHORTNESS OF BREATH Doxycycline Monohydrate 100 mg 04/10/20 09:00 04/12/20 08:41 Vibramycin PO 100 mg BID ANGEL Administration Protocol Enoxaparin Sodium 30 mg 04/12/20 09:00 04/12/20 08:41 Lovenox SUBCUT 30 mg Q24H ANGEL Administration Sodium Chloride 1,000 mls @ 75 mls/hr 04/08/20 17:00 04/08/20 17:53 Sodium Chloride 0.9% IV 75 mls/hr .[id number] ANGEL Administration Meropenem 1,000 mg/ Sodium 50 mls @ 200 mls/hr 04/11/20 12:00 04/12/20 00:00 Chloride IV 200 mls/hr Q12H ANGEL Administration Morphine Sulfate 4 mg 04/10/20 15:22 04/10/20 20:52 Morphine IVP 4 mg Q2H PRN Administration SEVERE PAIN Prednisone 40 mg 04/09/20 09:00 04/12/20 08:41 Prednisone PO 40 mg DAILY ANGEL Administration PFSH Acute PFSH: Medical History No pertinent past medical history Surgical History No pertinent past surgical history Family History Mother CAD (coronary artery disease) Social History Smoking and tobacco status: current every day smoker cigarettes [ Other cigarette details: [id number] smoking history ] Alcohol intake: former Substance/Drug Use: never Household members: family Housing: House Vitals/I&O/Wt Last Vital Signs Temp 98.0 F 04/12/20 08:00 Pulse 112 H 04/12/20 08:00 Resp 22 H 04/12/20 08:00 BP 120/64 04/12/20 08:00 Pulse Ox 94 04/12/20 08:00 04/11/20 04/12/20 04/12/20 22:59 06:59 14:59 Intake Total 600 / 650 240 / 890 360 / 360 Output Total 120 / 120 250 / 370 Balance 480 / 530 -10 / 520 360 / 360 Physical Exam Narrative: EXAM NARRATIVE: Constitutional: Awake, conversant, jovial HEENT: Wet mucosa, no jvp, non icteric Lungs: Bilaterally clear without discernible wheeze or rales in all lung zones CVS: S1 S2, no murmurs Abdo: Soft, BS ok Ext 4: Minimal edema, peripheral perfusion with no cyanosis Neurological: Grossly non-focal Data Micro: Micro: Microbiology 04/11/20 13:10 Gram Stain - Final Pleural Fluid A&P Additional A&P Information 1. DIONISIO - differential includes Contrast nephropathy, Vanco assoc ATN, infection mediated GN (ie a cytokine mediated tubular injury), AIN ie from Bactrim but this is less likely. Solid organ tumors can occasionally present with membranous GN but this is rare and presents with full nephrotic Sx features. - renal imaging unremarkable - will get bladder scan by RN at bedside - send CPK, TSH, uric acid - urinalysis, urine sodium, creatinine, protein - ivf - avoid further nephrotoxic exposures - Strict Is and Outs - dose meds for eGFR < 15 - No indication for dialysis at this time but she is at risk over then next few days 2. HypoNa - SIADH and high water consumption on admission - sodium has come up nicely 3. Metastatic disease - Onc on board - s/p biopsy - SIADH is more commonly seen as paraneoplastic syndrome assoc with small cell cancer 4. 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
[2020-04-12 11:34] LABS: Creatine Phosphokinase 108 U/L (26-192); Thyroid Stimulating Hormone 1.01 uIU/mL (0.27-4.20); Uric Acid 8.9 mg/dL (2.4-5.7)
[2020-04-12] MEDS: meropenem 1,000 MG in sodium chloride 0.9% (plus) 50 ML 200 MG IV ×2 (11:51)
--- NOTE | 2020-04-12 11:51 | P.PN_ITS ---
Subjective Subjective: Interval history: Status post liver lesion biopsy and thoracentesis yesterday by Dr. Jordan. The patient reports improved shortness of breath. Reports cough and mucus. No chills. No nausea or vomiting. No diarrhea. No abdominal pain. The back pain is well controlled. Medications: Reviewed: Yes Medication Review Details: Generic Name Dose Route Start Last Admin Trade Name Freq PRN Reason Stop Dose Admin Acetaminophen 650 mg 04/09/20 18:35 04/10/20 08:53 Tylenol PO 650 mg Q6H PRN Administration MILD PAIN Albuterol/Ipratrop ium 3 ml 04/08/20 21:53 04/11/20 20:46 Duoneb INHALATION 3 ml Q6H PRN Administration SHORTNESS OF MAG TH Doxycycline Monohy drate 100 mg 04/10/20 09:00 04/12/20 08:41 Vibramycin PO 100 mg BID ANGEL Administration Protocol Enoxaparin Sodium 30 mg 04/12/20 09:00 04/12/20 08:41 Lovenox SUBCUT 30 mg Q24H ANGEL Administration Sodium Chloride 1,000 mls @ 75 ml s/hr 04/08/20 17:00 04/08/20 17:53 Sodium Chloride 0.9% IV 75 mls/hr .[id number] ANGEL Administration Meropenem 1,000 mg / Sodium 50 mls @ 200 mls/ hr 04/11/20 12:00 04/12/20 11:51 Chloride IV 200 mls/hr Q12H ANGEL Administration Morphine Sulfate 4 mg 04/10/20 15:22 04/10/20 20:52 Morphine IVP 4 mg Q2H PRN Administration SEVERE PAIN Prednisone 40 mg 04/09/20 09:00 04/12/20 08:41 Prednisone PO 40 mg DAILY ANGEL Administration Vitals/I&O/Wt Last Vital Signs Temp 98.9 F 04/12/20 11:25 Pulse 102 H 04/12/20 11:25 Resp 20 H 04/12/20 11:25 BP 122/72 04/12/20 11:25 Pulse Ox 94 04/12/20 11:25 04/11/20 04/12/20 04/12/20 22:59 06:59 14:59 Intake Total 600 / 650 240 / 890 360 / 360 Output Total 120 / 120 250 / 370 Balance 480 / 530 -10 / 520 360 / 360 Physical Exam Narrative: EXAM NARRATIVE: AAO3 Responses are adequate. Normal mood. No acute distress Skin W/D MMM no JVD, supple. Improved air conduction to all lung hurt. Bilateral crackles. No respiratory distress. No hemoptysis S1, S2 reg S, NT, BS+ trace bl edema, no cyanosis or calf tenderness bl PERRL, EOMi, normal speech no focal muscle weakness Data : 04/12/20 04:51 04/12/20 06:03 Micro: Microbiology 04/11/20 13:10 Gram Stain - Final Pleural Fluid A&P Assessment and plan (1) Community acquired pneumonia: Status: Acute (2) Orthopnea: Status: Acute (3) Polydipsia: Status: Acute (4) Hyponatremia: Status: Acute (5) New onset of congestive heart failure: Status: Acute (6) Abnormal transaminases: Status: Acute (7) Sepsis: Status: Acute Additional A&P Information Community-acquired pneumonia Severe sepsis, sepsis criteria met with tachypnea, leukocytosis, chest x-ray reveals bilateral infiltrates, high procalcitonin and d-dimer Patient has failed 3 outpatient antibiotics, I would use vancomycin and Zosyn along steroids DuoNeb every 4h Legionella, bacterial antigen requested Blood culture obtained COVID antigen negative Abnormal transaminases with high alkaline phosphatase Would request gallbladder ultrasound, gram-negative anaerobic coverage with Zosyn Of note, she has right-sided heart failure features which could be responsible for abnormal LFTs, considering active sepsis I would continue antibiotics High d-dimer Currently patient is in sinus rhythm not hypoxic, saturating well on room air I would anticoagulate with Lovenox for now until she is able to lay flat for CTA chest to rule out PE New onset congestive heart failure Patient has 30-phfa-cyxv smoking history, most likely underlying lung pathology is responsible for right-sided heart failure Low-dose Lasix, echo in the morning, follow-up with TSH Hyponatremia without neurological signs or symptoms Sodium 120 No previous sodium to compare Patient is endorsing polydipsia drinking 1 to 1.5 gallons of water every day because she was afraid of kidney injury due to 3 different antibiotic usage at home Clinically looks mildly fluid overloaded, I would not use fluids for now, would give a trial of Lasix Discontinue fluids for now Serum, urine osmolarity, urine sodium, TSH, uric acid ordered She is not on any antidepressant DVT prophylaxis: Currently on therapeutic dose of Lovenox Cardiac diet Full code [place] Pneumonia. Postobstructive. Has right hilar and suprahilar mass which causing the obstruction. There is also right-sided pleural effusion. Status post thoracentesis. She is not improving with current antibiotics. However I do not think that this is because of inappropriate choice of antibiotics. She is currently on med meropenem and doxycycline. She developed severe allergic reaction to linezolid. Cannot use vancomycin due to acute kidney injury. Discussed with Dr. Jordan. Cancer with lung mass and numerous metastatic lesions throughout both lungs and liver. Biopsy of the liver lesion will be performed today. Hopefully will have the results of pathology report soon. Will consult oncologist at that time. Discussed with Dr. Jordan. I also informed the patient about these findings. I gave her a copy of the report. Hyponatremia. 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 Possibly it is secondary to lung disease and malignancy. However I believe polydipsia also contributes to the low sodium level. Improved and stable. Continue fluid restriction and liberalized diet. Continue monitoring chemistry panel. Adjust treatments as needed. Acute kidney injury. I suspect this is secondary to vancomycin, and or IV contrast, and or tumor lysis. Requesting nephrology consult. We appreciate Dr. Gerard's input. Additional testing is ordered. IV fluids are adjusted. Continue monitoring Elevated troponin. This could be secondary to #1. No chest pain. Normal echo and resolved EKG changes. Will recommend outpatient cardiac evaluation. DVT prophylaxis. Lovenox prophylactic dose. The plan of care was discussed with the patient. She verbalized understanding and agreement. 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
[2020-04-12] MEDS: sodium chloride 0.9% 1,000 ML 75 ML IV (12:48)
[2020-04-12] MEDS: ipratropium-albuterol 3 mL Neb INHALATION ×2 (14:23→19:41)
[2020-04-12 15:28] LABS: Sodium 128 mmol/L (136-145)
[2020-04-12 18:44] LABS: Blood Urine Trace (Negative); Glucose Urine UA Norm (Normal); Ketones Urine Negative (Negative); Protein Urine Neg (Negative); Specific Gravity, Urine 1.015 (1.005-1.030); Urine Appearance Cloudy (CLEAR); Urine Color Yellow (Yellow); pH Urine 5 (5-7)
[2020-04-12 18:45] LABS: Add Urine Microscopic? YES; Bilirubin Urine Neg (Negative); Leukocyte Esterase Urine Negative (Negative); Nitrate Urine Negative (Negative); Urobilinogen Urine Norm (Negative)
[2020-04-12 18:47] LABS: Add Urine Culture? No; Amorphous Sediment Urine 3+ /hpf; Bacteria Urine 1+ /hpf; Squamous Epithelial Cell Urine >100 /hpf (0-5); WBC Urine 0-4 /hpf (0-5)
--- NOTE | 2020-04-12 22:20 | ECG_ITS ---
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 Measurements Intervals [place] Rate: 153 P: SD: -1 QRS: 45 QRSD: 74 T: -84 QT: 196 QTc: 313 Interpretive Statements ATRIAL FIBRILLATION WITH RAPID VENTRICULAR RESPONSE ST DEVIATION AND MODERATE T-WAVE ABNORMALITY, CONSIDER INFERIOR ISCHEMIA [-0.1+ mV T WAVE IN II/aVF] INTERPRETATION BASED ON A DEFAULT AGE OF 40 YEARS Compared to ECG 04/08/2020 19:30:58 T-wave abnormality now present Possible ischemia now present Sinus rhythm no longer present Electronically Signed On 04-13-2020 17:01:00 CDT by Abe Calderon M.D. [id number]
[2020-04-12] MEDS: sodium chloride 0.9% 1,000 ML 999 ML IV (22:50)
[2020-04-12 23:04] LABS: D Dimer 2.89 ug/mIFEU (0-0.59)
[2020-04-12] MEDS: metoprolol tartrate 1 mg/1 mL SDV 5 mL 5 MG IV (23:08)
[2020-04-12 23:10] LABS: Platelet Count 253 10^3/cmm (130-400)
--- NOTE | 2020-04-12 23:25 | PM.EVENT ---
Event Note Event Note: Patient developed narrow complex tachyarrhythmia heart rate in 150s Blood pressure 98/74, 1 L normal saline bolus was given Blood pressure improved to 103/95mmhg I requested a stat d-dimer which came back very high Patient is on 3 L nasal cannula no active respiratory distress Plan: Due to high d-dimer and recent tachyarrhythmia my suspicion is high for PE, unfortunately because of high creatinine I cannot get CTA overnight We will get VQ scan in the morning, start her on heparin, close monitoring for her hemodynamic parameters overnight Lovenox has been discontinued Heart rate came down to 130s
[2020-04-12 23:47] LABS: Partial Thromboplastin Time 20.7 SECONDS (23.9-36.7)
[2020-04-13] VITALS (18 sets, daily range): BP systolic 95–173; BP diastolic 74–99; PULSE 86–156; RESP 17–31; TEMP 36.4–36.8; O2SAT 88–94
[2020-04-13] MEDS: heparin drip 25,000 UNIT/500 ML PREMIX 26 UNIT IV (00:35)
[2020-04-13] MEDS: heparin 5,000 unit/mL INJ 1 mL IV ×3 (00:35→23:05)
--- NOTE | 2020-04-13 01:37 | PC.NURSE ---
2 attempts to get a iv made by Arik carrington and 1 myself and were unsuccessful. Called Dr. Calderon and got permission to pause heparin drip to start amiodarone drip due to patient sustained elevated heart rate and shortness of breath. Contacted other departments to get someone to start an IV on patient. Will restart heparin drip when second IV becomes available and Dr. Calderon approved.
--- NOTE | 2020-04-13 01:43 | PC.NURSE ---
REPORT RECEIVED FROM PRIOR NURSE. PT HAS A NEW ONSET OF AFIB W/RVR. PT WAS SUPPOSED TO HAVE AMIODARONE GTT STARTED PRIOR TO ARRIVAL. PT IS ON A HEPARIN GTT AT 26ML/HR. PT HAS ONLY 1 IV IN THE LEFT FA. 2ND IV ATTEMPTED 4X WITHOUT SUCCESS. ED WILL SEND SOMEONE DOWN TO ATTEMPT IV WHEN THEY GET A CHANCE. MIDNIGHT ABT WASN'T GIVEN PRIOR TO ARRIVAL EITHER. PENDING SECOND IV ABT WILL BE GIVEN AT EARLIEST TIME. VS BP 104/74, HR 148, RR 19, SPO2 92. PT DENIES PAIN AT THIS TIME. WILL CONTINUE TO MONITOR.
[2020-04-13] MEDS: meropenem 1,000 MG in sodium chloride 0.9% (plus) 50 ML 200 MG IV ×2 (02:09→11:47)
[2020-04-13 02:10] LABS: Basophils % 0.2 %; Eosinophils # 5.3 10^3/uL (0.0-0.8); Eosinophils % 20.9 %; Hematocrit 35.9 % (37.0-47.0); Hemoglobin 11.9 g/dL (11.5-15.3); Lymphocytes # 0.9 10^3/uL (0.8-4.8); Lymphocytes % 3.4 %; Mean Corpuscular HGB Conc 33.1 g/dL (30.0-36.0); Mean Corpuscular Hemoglobin 31.6 pg (28.0-34.0); Mean Corpuscular Volume 95.2 fL (81-99); Mean Platelet Volume 9.6 fL (7.4-10.4); Monocytes # 1.1 10^3/uL (0.2-0.9); Monocytes % 4.3 %; Neutrophils # 17.33 10^3/uL (1.8-7.7); Neutrophils % 68.2 %; Nucleated Red Blood Cells % 0 %; Platelet Count 308 10^3/cmm (130-400); Red Blood Count 3.77 10^6/uL (4.1-5.3); Red Cell Distribution Width 12.4 % (12.1-15.1); White Blood Count 25.4 10^3/uL (4.0-10.0)
[2020-04-13 02:31] LABS: Alanine Aminotransferase 75 U/L (0-33); Alkaline Phosphatase 168 IU/L (35-105); Anion Gap 19.5 (5-19); Aspartate Amino Transferase 38 U/L (0-32); Blood Urea Nitrogen 46 mg/dL (8-23); Calcium 9.7 mg/dL (8.5-10.5); Carbon Dioxide 17 mmol/L (22-29); Chloride 94 mmol/L (98-107); Globulin 2.9 g/dL (1.3-4.6); Glomerular Filtration Rate 10.4 mL/min (90-130); Glucose 172 mg/dL (65-115); Osmolality Calculated 280 mOsm/kg (285-295); Potassium 3.5 mmol/L (3.5-5.1); Sodium 127 mmol/L (136-145); Total Bilirubin 0.3 mg/dL (0.15-1.2); Total Protein 5.9 g/dL (6.6-8.7)
[2020-04-13 02:48] LABS: Slide Review Slide Review Perform
[2020-04-13] MEDS: ipratropium-albuterol 3 mL Neb INHALATION ×3 (02:50→21:36)
[2020-04-13] MEDS: metoprolol tartrate 25 mg Tablet PO ×3 (03:03→16:52)
[2020-04-13 03:24] LABS: Lactate Dehydrogenase 691 U/L (135-214)
--- NOTE | 2020-04-13 05:18 | PC.NURSE ---
PT IS ON A AMIODARONE GTT AT 33.3ML/HR AND A HEPARIN GTT AT 26ML/HR. HR 122 AT THIS TIME. PT C/O SOB. PT DENIES PAIN AT THIS TIME. WILL CONTINUE TO MONITOR. WILL GIVE REPORT TO ON COMING NURSE.
[2020-04-13] MEDS: sodium chloride 0.9% 1,000 ML 75 ML IV (08:16)
[2020-04-13] MEDS: doxycycline 100 mg Tablet PO ×2 (08:19→16:52)
[2020-04-13] MEDS: predniSONE 20 mg Tablet PO (08:19)
--- NOTE | 2020-04-13 08:20 | PC.NURSE ---
Patient sitting on side of bed at time of assessment. Patient short of breath, O2 sats 90% on 5L NC. Amniodarone infusing at 1mg/min, heparin 26 ml/hr. No NS running at this time. Order clarified with Dr. Fraire. Nurse received verbal order to begin infusing NS at 75 ml/hr according to order, RBVO. NS initiated.
--- NOTE | 2020-04-13 08:37 | PM.PN ---
Subjective Subjective: Interval history: The patient was transferred to the first floor last night due to A. fib with RVR. She was given 2 boluses of diltiazem and then started on amiodarone drip after initial IV bolus. She is still in A. fib/RVR. Heart rate is at 140s. She reports palpitations. Denies chest pain. No changes in the shortness of breath or cough. No fevers or chills. No nausea or vomiting. Vitals/I&O/Wt Last Vital Signs Temp 98.2 F 04/13/20 07:46 Pulse 140 H 04/13/20 07:46 Resp 22 H 04/13/20 07:46 BP 107/76 04/13/20 07:46 Pulse Ox 90 04/13/20 07:46 04/12/20 04/13/20 04/13/20 22:59 06:59 14:59 Intake Total 360 / 770 329.433 / 5745.446 9947.135 / 1198.135 Output Total 400 / 400 Balance -40 / 370 329.433 / 272.829 0303.135 / 1198.135 Physical Exam Narrative: EXAM NARRATIVE: AAO3 Responses are adequate. Anxious. Tired. Skin W/D MMM no JVD, supple. Decreased breath sounds, worse at the right base. Mild bibasilar crackles. No respiratory distress. S1, S2 irregularly irregular S, NT, BS+ trace bl edema, no cyanosis or calf tenderness bl PERRL, EOMi, normal speech no focal muscle weakness Data : 04/13/20 02:00 04/13/20 02:00 Micro: Microbiology 04/12/20 08:52 MRSA Culture - Final Nose 04/11/20 13:10 Gram Stain - Final Pleural Fluid Body Fluid Culture - Preliminary A&P Assessment and plan (1) Community acquired pneumonia: Status: Acute (2) Orthopnea: Status: Acute (3) Polydipsia: Status: Acute (4) Hyponatremia: Status: Acute (5) New onset of congestive heart failure: Status: Acute (6) Abnormal transaminases: Status: Acute (7) Sepsis: Status: Acute Additional A&P Information Community-acquired pneumonia Severe sepsis, sepsis criteria met with tachypnea, leukocytosis, chest x-ray reveals bilateral infiltrates, high procalcitonin and d-dimer Patient has failed 3 outpatient antibiotics, I would use vancomycin and Zosyn along steroids DuoNeb every 4h Legionella, bacterial antigen requested Blood culture obtained COVID antigen negative Abnormal transaminases with high alkaline phosphatase Would request gallbladder ultrasound, gram-negative anaerobic coverage with Zosyn Of note, she has right-sided heart failure features which could be responsible for abnormal LFTs, considering active sepsis I would continue antibiotics High d-dimer Currently patient is in sinus rhythm not hypoxic, saturating well on room air I would anticoagulate with Lovenox for now until she is able to lay flat for CTA chest to rule out PE New onset congestive heart failure Patient has [id number] smoking history, most likely underlying lung pathology is responsible for right-sided heart failure Low-dose Lasix, echo in the morning, follow-up with TSH Hyponatremia without neurological signs or symptoms Sodium 120 No previous sodium to compare Patient is endorsing polydipsia drinking 1 to 1.5 gallons of water every day because she was afraid of kidney injury due to 3 different antibiotic usage at home Clinically looks mildly fluid overloaded, I would not use fluids for now, would give a trial of Lasix Discontinue fluids for now Serum, urine osmolarity, urine sodium, TSH, uric acid ordered She is not on any antidepressant DVT prophylaxis: Currently on therapeutic dose of Lovenox Cardiac diet Full code [place] Pneumonia. Postobstructive. Has right hilar and suprahilar mass which causing the obstruction. There was also right-sided pleural effusion. Status post thoracentesis. She is not improving with current antibiotics. However I do not think that this is because of inappropriate choice of antibiotics. She is currently on med meropenem and doxycycline. She developed severe allergic reaction to linezolid. Cannot use vancomycin due to acute kidney injury. Discussed with Dr. Jordan. He agrees with the current choice. Cancer with lung mass and numerous metastatic lesions throughout both lungs and liver. Biopsy of the liver lesion is performed. Hopefully will have the results of pathology report soon. (probably Wednesday). I also discussed with Dr. Nguyen. He will see the patient when the pathology report is available. I also informed the patient about these findings. I gave her a copy of the report. Today I asked her if she wants me to notify her family. She states that her son and her granddaughter as well as her mother know about her hospitalization. However she did not want me to speak with them about the details and findings. She stated that she will tell them when she feels it is appropriate. Hyponatremia. 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 Possibly it is secondary to lung disease and malignancy. However I believe polydipsia also contributes to the low sodium level. Improved and stable. Continue fluid restriction and liberalized diet. Continue monitoring chemistry panel. Adjust treatments as needed. Acute kidney injury. Unfortunately it has worsened since yesterday. The patient is informed. Possible explanations could be vancomycin, and/ or IV contrast and /or tumor lysis. Nephrology consult. We appreciate Dr. Gerard's input. Additional testing is ordered. IV fluids are adjusted. Continue monitoring Elevated troponin. This could be secondary to #1. No chest pain. Normal echo and resolved EKG changes. Will recommend outpatient cardiac evaluation. New onset atrial fibrillation with RVR. Continuing amiodarone and heparin drip. Requesting cardiology consultation. Dr. Calderon is partner management consultant. I appreciate his help. DVT prophylaxis. Heparin drip. The plan of care was discussed with the patient. She verbalized understanding and agreement. The nurses present during my examination. Attestations Medical Necessity Statement*: Please see my assessment and plan. The patient meets criteria for inpatient hospitalization. Coding Level of Care Code Acute Armored Vehicle Officer for g Fwd Diagnoses Community acquired pneumonia J18.9 Orthopnea R06.01 Polydipsia R63.1 Hyponatremia E87.1 New onset of congestive heart failure I50.9 Abnormal transaminases R74.8 Sepsis A41.9
--- NOTE | 2020-04-13 08:46 | P.PN_ITS ---
Subjective Subjective: Interval history: Rough night for her, still has SOB and went into Afib last night. Pulse 130-140, s/p amio, sBp 90-100. No dizziness She has some LE edema. Denies pain. Denies hemoptysis Passing urine but has some diarrhea, this is mixed and not fully recorded Medications: Reviewed: Yes Medication Review Details: Generic Name Dose Route Start Last Admin Trade Name Freq PRN Reason Stop Dose Admin Acetaminophen 650 mg 04/09/20 18:35 04/10/20 08:53 Tylenol PO 650 mg Q6H PRN Administration MILD PAIN Albuterol/Ipratrop ium 3 ml 04/08/20 21:53 04/11/20 20:46 Duoneb INHALATION 3 ml Q6H PRN Administration SHORTNESS OF MAG TH Doxycycline Monohy drate 100 mg 04/10/20 09:00 04/12/20 08:41 Vibramycin PO 100 mg BID ANGEL Administration Protocol Enoxaparin Sodium 30 mg 04/12/20 09:00 04/12/20 08:41 Lovenox SUBCUT 30 mg Q24H ANGEL Administration Sodium Chloride 1,000 mls @ 75 ml s/hr 04/08/20 17:00 04/08/20 17:53 Sodium Chloride 0.9% IV 75 mls/hr .[id number] ANGEL Administration Meropenem 1,000 mg / Sodium 50 mls @ 200 mls/ hr 04/11/20 12:00 04/12/20 11:51 Chloride IV 200 mls/hr Q12H ANGEL Administration Morphine Sulfate 4 mg 04/10/20 15:22 04/10/20 20:52 Morphine IVP 4 mg Q2H PRN Administration SEVERE PAIN Prednisone 40 mg 04/09/20 09:00 04/12/20 08:41 Prednisone PO 40 mg DAILY ANGEL Administration Vitals/I&O/Wt Last Vital Signs Temp 98.2 F 04/13/20 07:46 Pulse 140 H 04/13/20 07:46 Resp 22 H 04/13/20 07:46 BP 107/76 04/13/20 07:46 Pulse Ox 90 04/13/20 07:46 04/12/20 04/13/20 04/13/20 22:59 06:59 14:59 Intake Total 360 / 770 329.433 / 6458.314 1037.135 / 1198.135 Output Total 400 / 400 Balance -40 / 370 329.433 / 966.406 9874.135 / 1198.135 Physical Exam Narrative: EXAM NARRATIVE: Constitutional: Awake, conversant HEENT: Wet mucosa, no jvp, non icteric Lungs: Bilaterally clear without discernible wheeze or rales in all lung zones CVS: irregular Abdo: Soft, BS ok Ext 4: 1+ edema, peripheral perfusion with no cyanosis Neurological: Grossly non-focal Data : 04/13/20 02:00 04/13/20 02:00 Micro: Microbiology 04/12/20 08:52 MRSA Culture - Final Nose 04/11/20 13:10 Gram Stain - Final Pleural Fluid Body Fluid Culture - Preliminary A&P Additional A&P Information 1. DIONISIO - differential includes Contrast nephropathy, Vanco assoc ATN, infection mediated GN (ie a cytokine mediated tubular injury), AIN ie from Bactrim but this is less likely. Solid organ tumors can occasionally present with membranous GN but this is rare and presents with full nephrotic Sx features. - renal imaging unremarkable - CPK, TSH, uric acid all ok (no evidence of rhabdo or TLS) - urine sodium, creatinine, protein; pending - will DC ivf, hasn't helped and she is starting to develop edema, would defer diuretics unless she becomes increasingly SOB - avoid further nephrotoxic exposures - Strict Is and Outs - dose meds for eGFR < 15 - No indication for dialysis at this time but she is at risk over then next few days 2. HypoNa - SIADH and high water consumption on admission - sodium has remained in the high 120 range despite isotonic ivf; this is consistent with roughly isotonic urine that can't be diluted 3. Metastatic disease - Onc on board - s/p biopsy - SIADH is more commonly seen as paraneoplastic syndrome assoc with small cell cancer 4. Post obstructive pneumonia - Merrem and Doxy on board - cultures so far unrevealing 5. Afib - developed overnight; amiodarone infusion - cardiology to consult regarding a possible cardioversion - overall very complicated with multi-system organ disease and increasingly poor prognosis. Pathology from liver biopsy will certainly help to crystallize overall plan of care. Andrew Travis MD [phone] Interview and exam performed with the aid of bedside RN using telemed Attestations Medical Necessity Statement*: eval for DIONISIO Coding Level of Care Code Acute Front End Software Engineer for Kenyon Pratt
--- NOTE | 2020-04-13 08:50 | PC.NURSE ---
Dr. Travis rounded on patient. Teleneph verbal order received to discontinue fluids. Physician to collaborate with hospitalist on POC.
--- NOTE | 2020-04-13 11:31 | PC.NURSE ---
Dr. Fraire notified VQ scan postponed due to patient being unable to lay flat. No new orders received.
--- NOTE | 2020-04-13 11:46 | PC.NURSE ---
Dr. Calderon at bedside. Verbal order received for Digoxin 500 mcg IVP once. RBVO.
[2020-04-13] MEDS: digoxin 250 mcg/ml INJ 2 mL 500 MCG IVP (11:53)
--- NOTE | 2020-04-13 11:59 | PC.NURSE ---
Verbal order from Dr. Calderon to give 250 mcg digoxin, wait 5 minutes.Then, give last 250 mcg and complete 500 mcg dose. RBVO.
--- NOTE | 2020-04-13 12:28 | P.CONIM_ITS ---
Providers/Reason For Consult Consulting Physican/Specialty*: GRANT Calderon MD /cardiology Reason for Consult*: Patient with a new onset of atrial fibrillation and uncontrolled ventricular response rate Attending Physician: Fuad Fraire Primary Care Provider: Mariam Mckeon History of Present Illness History of Present Illness Pamela Jack is a 64 year old female, is admitted to hospital through the emergency room, where she presented with the progressive shortness of breath. This patient has a history of heavy smoking abuse. She started having a cough and shortness of breath. She apparently has been taking multiple antibiotics at home. Since there was no improvement of the symptoms, she came to the emergency room. She was initially thought to have community-acquired pneumonia. Further work-up in the hospital revealed extensive metastatic lesions involving the lung, pleura, liver and intestinal structures. She already had a pleural tap and the studies are pending. She is being treated for obstructive pneumonia. While being in the med- surgery floor, she went into atrial fibrillation with rapid ventricular rate. For that reason, she was brought down to the cardiac stepdown unit. She was given metoprolol and Cardizem through the night. Since there was no response, she was started on IV amiodarone. She still continued to be in atrial fibrillation with rapid ventricular rate. Her heart rate is in the 130-140 range. She is complaining of worsening shortness of breath and overall weakness/fatigue. No significant chest pain. Denies any fever or chills. She had an echocardiogram done few days ago which revealed normal LV size ejection fraction. This was a suboptimal quality. Patient has no previous history for coronary artery disease, myocardial infarction or congestive heart failure. She has a history of heavy smoking abuse, 1 to 2 pack a day for 45 years or so. No alcohol abuse or any substance abuse. Her mother had atrial fibrillation and permanent pacer implantation. No other relevant family history. Review of Systems Narrative: CONSTITUTIONAL: Had some fever and chills at home?. Feeling a lot generalized weakness EYES: No blurring of vision or other visual disturbances lately. ENT: No hoarseness of voice, auditory disturbances or sore throat. CARDIOVASCULAR: As mentioned above. RESPIRATORY: No significant cough. GASTROINTESTINAL: No hematemesis or melena. GENITOURINARY: Features of acute kidney injury INTEGUMENTARY: No skin rashes or history of skin cancer. NEURO: No transient ischemic attacks or amaurosis. PSYCHIATRIC: No history of psychosis or major depression. HEMATOLOGIC: No bleeding disorders or significant anemia. ENDOCRINE: No history of polyuria or polydipsia. MUSCULOSKELETAL: No recent joint pain or swelling. ALLERGY/IMMUNOLOGY: As mentioned above. Meds/Allergies Home Medications and Allergies Home Medications Medication Instructions Recorded Confirmed Last Taken Type albuterol sulfate 2 puff INHALATION 6XD PRN 04/08/20 04/08/20 Unknown History doxycycline hyclate 100 mg PO BID 04/08/20 04/08/20 04/08/20 History ipratropium-albuterol 3 ml INHALATION QID 04/08/20 04/08/20 04/08/20 History prednisone See Rx Instructions .ROUTE .COMPLEX 04/08/20 04/08/20 04/08/20 History Allergies Allergy/AdvReac Type Severity Reaction Status Date / Time linezolid Allergy ALGY-Difficulty Verified 04/11/20 18:25 Breathing Current Medications Current Medications Generic Name Dose Route Start Last Admin Trade Name Yakovq PRN Reason Stop Dose Admin Acetaminophen 650 mg 04/09/20 18:35 04/10/20 08:53 Tylenol PO 650 mg Q6H PRN Administration MILD PAIN Albuterol/Ipratropium 3 ml 04/08/20 21:53 04/13/20 02:50 Duoneb INHALATION 3 ml Q6H PRN Administration SHORTNESS OF BREATH Doxycycline Monohydrate 100 mg 04/10/20 09:00 04/13/20 08:19 Vibramycin PO 100 mg BID ANGEL Administration Protocol Heparin Sodium (Beef Lung) 0 unit 04/12/20 22:24 04/13/20 08:59 Heparin IV 1,900 unit PRN PRN Administration Heparin weight-base protocol Protocol Meropenem 1,000 mg/ Sodium 50 mls @ 200 mls/hr 04/11/20 12:00 04/13/20 12:10 Chloride IV Infused Q12H ANGEL Infusion Heparin Sodium/Sodium Chloride 25,000 unit in 500 mls @ 0 mls/hr 04/12/20 22:30 04/13/20 08:58 Heparin Drip IV 14.7 unit/kg/hr .Q0M ANGEL 28 mls/hr Titration Protocol Per Protocol Amiodarone HCl 900 mg/ 518 mls @ 0 mls/hr 04/13/20 00:15 04/13/20 07:49 Dextrose/ IV Miscellaneous IV 0.5 mg/min Supplies .Q0M ANGEL 17.3 mls/hr Titration Protocol Per Protocol Metoprolol Tartrate 25 mg 04/13/20 02:55 04/13/20 08:20 Lopressor PO 25 mg BID ANGEL Administration Morphine Sulfate 4 mg 04/10/20 15:22 04/10/20 20:52 Morphine IVP 4 mg Q2H PRN Administration SEVERE PAIN Prednisone 20 mg 04/13/20 09:00 04/13/20 08:19 Prednisone PO 20 mg DAILY ANGEL Administration PFSH Acute PFSH: Medical History No pertinent past medical history Surgical History No pertinent past surgical history Family History Mother CAD (coronary artery disease) Social History (Updated 04/14/20 @ 11:58 by Александр Nguyen MD) Smoking and tobacco status: current every day smoker cigarettes [ Other cigarette details: She has smoked for 45 years up to a pack and a half of cigarettes daily. ] Alcohol intake: former Other details last alcohol use: She has a long history of alcohol use which had increased over the past 10 years up to 12 pack of beer per day. She quit 3 to 4 months ago. Substance/Drug Use: never Household members: family Housing: House Vitals/I&O/Wt Last Vital Signs Temp 97.6 F 04/13/20 12:06 Pulse 130 H 04/13/20 12:06 Resp 17 04/13/20 12:06 BP 117/95 04/13/20 12:06 Pulse Ox 91 04/13/20 12:06 04/12/20 04/13/20 04/13/20 22:59 06:59 14:59 Intake Total 360 / 770 329.433 / 3141.824 5128.985 / 4056.985 Output Total 400 / 400 Balance -40 / 370 329.433 / 996.907 3306.985 / 4056.985 Physical Exam Narrative: EXAM NARRATIVE: GENERAL: The patient is alert and oriented times three. Patient is somewhat tachypneic and complaining of difficulty in breathing. Moderately obese. HEENT: No significant pallor, icterus or lymphadenopathy. The pupils are reactant to light. Oral cavity: There are no mucous membrane lesions. Funduscopic examination: Fundus is not visualized NECK: Trachea appears to be central. No masses noted. No JVD or thyromegaly appreciated. No carotid bruit. RESPIRATORY: Chest is symmetrical. No intercostals muscle retraction or any accessory muscle activation. There is no chest wall tenderness. Breath sounds are heard bilaterally. Diminished intensity of breath sounds in the both bases. Occasional coarse crackles. BREASTS: Deferred. HEART: The PMI could not be palpated. No palpable precordial events. S1 and S2 are normal. No S3 or S4 heard. No pericardial rub or any click heard. ABDOMEN: No vessel pulsations or distention. No tenderness. No organomegaly appreciated. No abdominal bruit. Bowel sounds are normally heard. : Deferred. RECTAL: Deferred. LYMPHATIC: No lymphadenopathy noted in the neck. EXTREMITIES: 1-2+ edema both lower extremities. No cyanosis. MUSCULOSKELETAL: No acute joint deformities or swelling SKIN: There are no significant scars or skin rash noted. NEUROPSYCHIATRIC: The patient is alert and oriented x3. Tachypneic. The higher functions are grossly within normal limits. No tremors or rigidity noted. Data Micro: Micro: Microbiology 04/12/20 08:52 MRSA Culture - Fin al Nose 04/11/20 13:10 Gram Stain - Final Pleural Fluid Body Fluid Culture - Preliminary The echocardiogram from 04/09/2020 revealed 1. This is a technically difficult study. 2. Normal left ventricular cavity size and systolic function. Increased left ventricular wall thickness. Left ventricular ejection fraction is estimated at 60 %. No diagnostic regional wall motion abnormality. 3. No significant valvular abnormality. 4. No prior similar studies to compare. The EKG revealed CT of the chest, abdomen and pelvis revealed 1. Enlarged right hilar and suprahilar mass consistent with neoplasm described above. 2. Moderate narrowing involving the distal main pulmonary artery. Narrowing with occlusion/near occlusion involving the right superior and middle lobe pulmonary artery branches. Left main pulmonary artery is patent. 3. Numerous metastatic lesions visualized throughout both lungs with pleural thickening and anterior mediastinal implants in the right middle lobe and right cardiophrenic angle anteriorly. 4. Anterior mediastinal, AP window, and hilar lymphadenopathy. Subcarinal lymphadenopathy. 5. Small moderate right pleural effusion with postobstructive pneumonia in right middle and right lower lobes.. 6. Hepatomegaly with innumerable enhancing metastatic lesions consistent with metastatic disease. 7. A few subcentimeter metastatic abdominal omental implants 8. No periaortic or pelvic lymphadenopathy. No inguinal lymphadenopathy. EKG^: EKG 1: My Interpretation: Normal sinus rhythm with possible left atrial lodgment. Some nonspecific ST changes. EKG 2: My Interpretation: Atrial fibrillation with rapid ventricular rate of [address]-T changes. A&P Assessment and plan (1) New onset atrial fibrillation: Patient has some worsening of the shortness of breath since yesterday possibly related to the atrial fibrillation rapid ventricular rate. She is on amiodarone and was given metoprolol and Cardizem. The ventricular rate is still in the 130s. Hemodynamically she seems to be fairly stable with a systolic blood pressure around 110. However she is very uncomfortable. Status: Acute (2) Acute diastolic heart failure: This could be multifactorial. Arrhythmia could be contributing factor. Had extensive metastatic lesions with obstructive pneumonia causing right ventricular strain is a consideration. Possibility of underlying coronary ischemia cannot be excluded. Status: Acute (3) Pleural effusion: Possibly from the metastatic lesions. Patient apparently has extensive lesions including the pleura Status: Acute (4) Metastatic cancer: Possible primary from the lung. Studies are still pending. Status: Acute Qualifiers: Area of secondary neoplastic involvement: lymph node Lymph node location: intrathoracic region Qualified Code(s): C77.1 - Secondary and unspecified malignant neoplasm of intrathoracic lymph nodes (5) Obstructive pneumonia: Patient is on multiple antibiotics. Status: Acute (6) Acute kidney injury: Patient is being followed by the nephrology service. He of the acute renal failure is not clear. Antibiotics, contrast-induced nephropathy, etc. are considerations. Status: Acute Additional A&P Information Patient was given a total of 0.5 mg of IV digoxin for rate control. If she has no significant improvement in the ventricular rate response, we may consider electrical cardioversion. This was discussed with the patient in detail which she understood well. Coding Level of Care Code Acute Coroner Forensic Technician for Chg Fwd History Comprehensive Exam Comprehensive Medical Decision Making Moderate Complexity Diagnoses New onset atrial fibrillation I48.91 Acute diastolic heart failure I50.31 Pleural effusion J90 Metastatic cancer C77.1 Area of secondary neoplastic involvement: lymph node Lymph node location: intrathoracic region Obstructive pneumonia J18.9 Acute kidney injury N17.9 Time Spent (min) 60
--- NOTE | 2020-04-13 13:55 | PC.NURSE ---
Patient converted to NSR at 1221. Dr. Calderon and Dr. Fraire notified. Dr. Calderon gave verbal order to continue Amiodarone gtt. RBVO.
--- NOTE | 2020-04-13 13:58 | PC.NURSE ---
Dr. Fraire gave verbal order to administer Xanax 0.25 mg PO Q8H PRN for anxiety, RBVO.
[2020-04-13] MEDS: ALPRAZolam 0.25 mg Tablet PO (14:13)
[2020-04-13 15:45] LABS: Partial Thromboplastin Time 55.1 SECONDS (23.9-36.7)
[2020-04-13] MEDS: morphine 4 mg/mL SDV 1 mL IVP ×3 (16:02→23:15)
--- NOTE | 2020-04-13 16:15 | PC.NURSE ---
Nurse called to room, patient states she cracked her rib by coughing. Patient does not exhibit any acute or worsened respiratory distress symptoms. Patient rates pain 10/10. Dr. Fraire notified. No new orders received. Pain medication administered. Nurse to continue to monitor.
--- NOTE | 2020-04-13 19:28 | PC.NURSE ---
Rounding: Patient sitting on the side of the bed. alert and oriented and patient says her pain is relieved. Patient denies any needs at this time.
[2020-04-13] MEDS: heparin drip 25,000 UNIT/500 ML PREMIX 28 UNIT IV (19:54)
--- NOTE | 2020-04-13 22:00 | PC.NURSE ---
Dr. Calderon stated to leave amiodarone drip running at 0.5mg until her day provider comes and begins her PO medications. Read back verbal order.
[2020-04-13 22:22] LABS: Partial Thromboplastin Time 52.4 SECONDS (23.9-36.7)
[2020-04-14] VITALS (13 sets, daily range): BP systolic 132–161; BP diastolic 80–100; PULSE 75–95; RESP 16–22; TEMP 36.4–36.6; O2SAT 89–96
[2020-04-14] MEDS: meropenem 1,000 MG in sodium chloride 0.9% (plus) 50 ML 200 MG IV ×3 (00:43→22:21)
[2020-04-14] MEDS: ipratropium-albuterol 3 mL Neb INHALATION ×4 (04:00→19:33)
[2020-04-14 04:08] LABS: Basophils # 0.1 10^3/uL (0.0-0.1); Basophils % 0.2 %; Hematocrit 34.7 % (37.0-47.0); Hemoglobin 11.5 g/dL (11.5-15.3); Lymphocytes # 0.7 10^3/uL (0.8-4.8); Lymphocytes % 2.8 %; Mean Corpuscular HGB Conc 33.1 g/dL (30.0-36.0); Mean Corpuscular Hemoglobin 31.1 pg (28.0-34.0); Mean Corpuscular Volume 93.8 fL (81-99); Mean Platelet Volume 10.1 fL (7.4-10.4); Monocytes # 1.4 10^3/uL (0.2-0.9); Monocytes % 5.7 %; Neutrophils # 21.74 10^3/uL (1.8-7.7); Neutrophils % 88.5 %; Nucleated Red Blood Cells % 0 %; Platelet Count 340 10^3/cmm (130-400); Red Cell Distribution Width 12.4 % (12.1-15.1); White Blood Count 24.6 10^3/uL (4.0-10.0)
[2020-04-14 04:39] LABS: Magnesium 2.2 mg/dL (1.7-2.3)
[2020-04-14 04:57] LABS: Albumin Level 3.4 g/dL (3.5-5.2); Anion Gap 22.1 (5-19); Blood Urea Nitrogen 59 mg/dL (8-23); Calcium 9.5 mg/dL (8.5-10.5); Carbon Dioxide 17 mmol/L (22-29); Chloride 93 mmol/L (98-107); Glucose 134 mg/dL (65-115); Phosphorus 6.9 mg/dL (2.5-4.5); Potassium 4.1 mmol/L (3.5-5.1); Sodium 128 mmol/L (136-145)
--- NOTE | 2020-04-14 06:23 | PC.NURSE ---
End of shift: PAtient remains alert and oriented. Patient had one dose of morphine and is on hi flow nasal cannula at 7L. Patient denies any pain and gets up to bedside commode without any assistance.
--- NOTE | 2020-04-14 06:48 | P.PN_ITS ---
Subjective Subjective: Interval history: Feels weak, tired but no other acute issues today. Developed Afib Wednesday night but has responded to Digoxin and amiodarone, with pulse now in the 80-100 range and in NS. She has some LE edema. Denies pain. Denies hemoptysis Passing urine Medications: Reviewed: Yes Medication Review Details: Generic Name Dose Route Start Last Admin Trade Name Freq PRN Reason Stop Dose Admin Acetaminophen 650 mg 04/09/20 18:35 04/10/20 08:53 Tylenol PO 650 mg Q6H PRN Administration MILD PAIN Albuterol/Ipratrop ium 3 ml 04/08/20 21:53 04/11/20 20:46 Duoneb INHALATION 3 ml Q6H PRN Administration SHORTNESS OF MAG TH Doxycycline Monohy drate 100 mg 04/10/20 09:00 04/12/20 08:41 Vibramycin PO 100 mg BID ANGEL Administration Protocol Enoxaparin Sodium 30 mg 04/12/20 09:00 04/12/20 08:41 Lovenox SUBCUT 30 mg Q24H ANGEL Administration Sodium Chloride 1,000 mls @ 75 ml s/hr 04/08/20 17:00 04/08/20 17:53 Sodium Chloride 0.9% IV 75 mls/hr .[id number] ANGEL Administration Meropenem 1,000 mg / Sodium 50 mls @ 200 mls/ hr 04/11/20 12:00 04/12/20 11:51 Chloride IV 200 mls/hr Q12H ANGEL Administration Morphine Sulfate 4 mg 04/10/20 15:22 04/10/20 20:52 Morphine IVP 4 mg Q2H PRN Administration SEVERE PAIN Prednisone 40 mg 04/09/20 09:00 04/12/20 08:41 Prednisone PO 40 mg DAILY ANGEL Administration Vitals/I&O/Wt Last Vital Signs Temp 97.5 F L 04/14/20 04:34 Pulse 88 04/14/20 04:34 Resp 17 04/14/20 04:34 BP 132/80 04/14/20 04:34 Pulse Ox 90 04/14/20 04:34 04/13/20 04/13/20 04/14/20 14:59 22:59 06:59 Intake Total 4056.985 / 4056.985 426.133 / 4483.118 578.998 / 5062.116 Balance 4056.985 / 4056.985 426.133 / 4483.118 578.998 / 5062.116 Physical Exam Narrative: EXAM NARRATIVE: Constitutional: Awake, conversant, looks tired HEENT: Wet mucosa, no jvp, non icteric Lungs: Bilaterally clear without discernible wheeze or rales in all lung zones CVS: irregular Abdo: Soft, BS ok Ext 4: 1+ edema, peripheral perfusion with no cyanosis Neurological: Grossly non-focal Data : 04/14/20 03:22 04/14/20 03:22 Micro: Microbiology 04/08/20 17:35 Blood Culture - Final Blood NO GROWTH AFTER 5 DAYS 04/08/20 18:59 Blood Culture - Final Blood NO GROWTH AFTER 5 DAYS 04/11/20 13:10 Mycobacterial Smear - Preliminary Body Fluids - Pleura 04/11/20 13:10 Gram Stain - Final Pleural Fluid Body Fluid Culture - Preliminary A&P Additional A&P Information 1. DIONISIO - fortunately creatinine has trended down slightly since yesterday - likely this is a tubular injury from contrast vs Vanco - will avoid ivf and diuretics at this time - avoid further nephrotoxic exposures - Strict Is and Outs - dose meds for eGFR < 15 - No indication for dialysis and downward trend in creatinine is reassuring 2. 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 Metastatic disease - Onc on board - s/p biopsy - SIADH is more commonly seen as paraneoplastic syndrome assoc with small cell cancer 4. Post obstructive pneumonia - Merrem and Doxy on board - cultures so far unrevealing - may need pleurex drain 5. Afib - developed Wednesday; amiodarone infusion and Digoxin - converted to SR 6. Acidosis - noted, defer sodium bicarb to avoid sodium loading but will continue to monitor closely - should resolve as renal function recovers 7. Hyperphos - mild, no need to treat and will watch closely over next few days. 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
[2020-04-14] MEDS: predniSONE 20 mg Tablet PO (08:41)
[2020-04-14] MEDS: doxycycline 100 mg Tablet PO ×2 (08:41→17:20)
[2020-04-14] MEDS: metoprolol tartrate 25 mg Tablet PO ×2 (08:41→17:21)
--- NOTE | 2020-04-14 10:47 | XRR_ITS ---
PROCEDURE INFORMATION: Exam: XR Chest, 1 View Exam date and time: 04/14/2020 12:51 PM Age: 64 years old Clinical indication: Shortness of breath; Additional info: Worsening shortness of breath, pleural effusion. TECHNIQUE: Imaging protocol: XR of the chest Views: 1 view. COMPARISON: CT chest abd pel w con* 04/10/2020 2:33 PM FINDINGS: Lungs: Bilateral lower lobe interstitial congestion is present left greater than right. There is a 26 mm noncalcified mass in the right perihilar region. Vascular congestion is seen in the bilateral hilar regions. Pleural space: Unremarkable. No pleural effusion. No pneumothorax. Heart/Mediastinum: Unremarkable. No cardiomegaly. Bones/joints: There is mild dorsolumbar dextroscoliosis Right lower lobe pleural effusion is seen. XR/XR chest 1V portable [id number] IMPRESSION: 1. Bilateral lower lobe parenchymal densities 2. Right perihilar mass 3. Right lower lobe pleural effusion
--- NOTE | 2020-04-14 11:08 | P.PN_ITS ---
Subjective Subjective: Interval history: Reports worsening shortness of breath and cough. No palpitations or chest pain. No nausea or vomiting. No diarrhea. Medications: Reviewed: Yes Medication Review Details: Generic Name Dose Route Start Last Admin Trade Name Freq PRN Reason Stop Dose Admin Acetaminophen 650 mg 04/09/20 18:35 04/10/20 08:53 Tylenol PO 650 mg Q6H PRN Administration MILD PAIN Albuterol/Ipratrop ium 3 ml 04/08/20 21:53 04/14/20 09:19 Duoneb INHALATION 3 ml Q6H PRN Administration SHORTNESS OF MAG TH Alprazolam 0.25 mg 04/13/20 13:57 04/13/20 14:13 Xanax PO 0.25 mg Q8H PRN Administration ANXIETY Doxycycline Monohy drate 100 mg 04/10/20 09:00 04/14/20 08:41 Vibramycin PO 100 mg BID ANGEL Administration Protocol Heparin Sodium (Be ef Lung) 0 unit 04/12/20 22:24 04/13/20 23:05 Heparin IV 1,900 unit PRN PRN Administration Heparin weight-ba se protocol Protocol Meropenem 1,000 mg / Sodium 50 mls @ 200 mls/ hr 04/11/20 12:00 04/14/20 04:01 Chloride IV Infused Q12H ANGEL Infusion Heparin Sodium/Sod ium Chloride 25,000 unit in 50 0 mls @ 0 mls/hr 04/12/20 22:30 04/13/20 23:05 Heparin Drip IV 15.75 unit/kg/hr .Q0M ANGEL 30 mls/hr Titration Protocol Per Protocol Amiodarone HCl 900 mg/ 518 mls @ 0 mls/h r 04/13/20 00:15 04/14/20 04:26 Dextrose/ IV Misce llaneous IV 0.48 mg/min Supplies .Q0M ANGEL 16.7 mls/hr Administration Protocol Per Protocol Metoprolol Tartrat e 25 mg 04/13/20 02:55 04/14/20 08:41 Lopressor PO 25 mg BID ANGEL Administration Morphine Sulfate 4 mg 04/10/20 15:22 04/13/20 23:15 Morphine IVP 4 mg Q2H PRN Administration SEVERE PAIN Prednisone 20 mg 04/13/20 09:00 04/14/20 08:41 Prednisone PO 20 mg DAILY ANGEL Administration Vitals/I&O/Wt Last Vital Signs Temp 97.6 F 04/14/20 08:12 Pulse 77 04/14/20 09:23 Resp 20 H 04/14/20 09:19 BP 154/88 04/14/20 08:12 Pulse Ox 92 04/14/20 09:19 04/13/20 04/14/20 04/14/20 22:59 06:59 14:59 Intake Total 426.133 / 4483.118 578.998 / 5062.116 Balance 426.133 / 4483.118 578.998 / 5062.116 Physical Exam Narrative: EXAM NARRATIVE: AAO3 Responses are adequate. Anxious. Tired. Skin W/D MMM, no thrush no JVD, supple. Decreased breath sounds, worse at the right base, seems to be worse today. Mild bibasilar crackles. No respiratory distress at rest with oxygen. S1, S2 irregularly irregular S, NT, BS+ trace bl edema, no cyanosis or calf tenderness bl PERRL, EOMi, normal speech no focal muscle weakness Data : 04/14/20 03:22 04/14/20 03:22 Micro: Microbiology 04/11/20 13:10 Gram Stain - Final Pleural Fluid Body Fluid Culture - Final 04/08/20 17:35 Blood Culture - Final Blood NO GROWTH AFTER 5 DAYS 04/08/20 18:59 Blood Culture - Final Blood NO GROWTH AFTER 5 DAYS 04/11/20 13:10 Mycobacterial Smear - Preliminary Body Fluids - Pleura A&P Assessment and plan (1) Community acquired pneumonia: Status: Acute (2) Orthopnea: Status: Acute (3) Polydipsia: Status: Acute (4) Hyponatremia: Status: Acute (5) New onset of congestive heart failure: Status: Acute (6) Abnormal transaminases: Status: Acute (7) Sepsis: Status: Acute Additional A&P Information Community-acquired pneumonia Severe sepsis, sepsis criteria met with tachypnea, leukocytosis, chest x-ray reveals bilateral infiltrates, high procalcitonin and d-dimer Patient has failed 3 outpatient antibiotics, I would use vancomycin and Zosyn along steroids DuoNeb every 4h Legionella, bacterial antigen requested Blood culture obtained COVID antigen negative Abnormal transaminases with high alkaline phosphatase Would request gallbladder ultrasound, gram-negative anaerobic coverage with Zosyn Of note, she has right-sided heart failure features which could be responsible for abnormal LFTs, considering active sepsis I would continue antibiotics High d-dimer Currently patient is in sinus rhythm not hypoxic, saturating well on room air I would anticoagulate with Lovenox for now until she is able to lay flat for CTA chest to rule out PE New onset congestive heart failure Patient has [id number] smoking history, most likely underlying lung pathology is responsible for right-sided heart failure Low-dose Lasix, echo in the morning, follow-up with TSH Hyponatremia without neurological signs or symptoms Sodium 120 No previous sodium to compare Patient is endorsing polydipsia drinking 1 to 1.5 gallons of water every day because she was afraid of kidney injury due to 3 different antibiotic usage at home Clinically looks mildly fluid overloaded, I would not use fluids for now, would give a trial of Lasix Discontinue fluids for now Serum, urine osmolarity, urine sodium, TSH, uric acid ordered She is not on any antidepressant DVT prophylaxis: Currently on therapeutic dose of Lovenox Cardiac diet Full code [place] Pneumonia. Postobstructive. Has right hilar and suprahilar mass which causing the obstruction. There is also right-sided pleural effusion, probably worsening. Status post thoracentesis. Might need another one soon. She is not improving with current antibiotics. However I do not think that this is because of inappropriate choice of antibiotics. She is currently on med meropenem and doxycycline. She developed severe allergic reaction to linezolid. Cannot use vancomycin due to acute kidney injury. Discussed with Dr. Jordan. He agrees with the current choice. Thrush. Will order nystatin solution swish and swallow. Cancer with lung mass and numerous metastatic lesions throughout both lungs and liver. Biopsy of the liver lesion is performed. Hopefully will have the results of pathology report soon. (probably Wednesday). I also discussed with Dr. Nguyen. He saw the patient today. I appreciate his help. 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 Hyponatremia. 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 Possibly it is secondary to lung disease and malignancy. However I believe polydipsia also contributed to the low sodium level. stable. Management per nephrology team. Acute kidney injury. Minimal improvement since yesterday. Possible explanations could be vancomycin, and/ or IV contrast. Nephrology consult. We appreciate Dr. Gerard's input. Continue management per his recommendations. Monitor. Elevated troponin. This could be secondary to #1. New onset atrial fibrillation with RVR. Converted to sinus yesterday. Man agement per Dr. Calderon. I appreciate his help DVT prophylaxis. Heparin drip. The plan of care was discussed with the patient. She verbalized understanding and agreement. Attestations Medical Necessity Statement*: Requires inpatient hospitalization due to need for oxygen, IV medications, pending test results for initiation of chemo. 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
[2020-04-14 11:22] LABS: Partial Thromboplastin Time 55.7 SECONDS (23.9-36.7)
--- NOTE | 2020-04-14 11:32 | P.CONIM_ITS ---
Providers/Reason For Consult Consulting Physican/Specialty*: Medical oncology. Reason for Consult*: Lung cancer. Attending Physician: Fuad Fraire Primary Care Provider: Mariam Mckeon History of Present Illness History of Present Illness Pamela Jack is a 64 year old woman with CT evidence of advanced lung cancer. She had previously been in good health. She became ill sometime around the beginning of March with sinus infection and cough. She then developed inc reasing shortness of breath and weakness. Her symptoms continue to worsen despite outpatient antibiotic therapy. She had some diarrhea associated with the antibiotic therapy, and she also was drinking excessive amount of water. She was seen in the emergency room on 04/08/2020. Her white blood cell count was elevated at 19,800 with hemoglobin normal at 13.5 g and platelet count normal at 325,000. Her comprehensive metabolic profile showed significant hyponatremia, serum sodium 121 mmol/L, with BUN 8 and creatinine 0.3 mg/dL. Her liver enzymes were moderately elevated with normal bilirubin at 0.5 mg/dL. Chest x-ray showed bibasilar airspace disease with right pleural effusion. She was admitted with a presumptive diagnosis of pneumonia and dilutional hyponatremia. She also had suspected congestive heart failure. She began empiric antibiotic coverage with Zosyn and vancomycin. Echocardiogram the following day showed normal left ventricular ejection fraction at 60%. Her CT chest, abdomen, and pelvis on 04/10/2020 showed large right hilar and suprahilar mass measuring 4.1 x 4.5 x 6.1 cm. There was compression of the distal right main pulmonary artery and partial occlusion of the right upper lobe and right middle lobe pulmonary arteries. There was mass extending into the anterior mediastinum measuring 3.2 x 3.3 cm. Satellite nodules were noted along the anterior chest wall and mediastinum and there were additional satellite nodules in the right middle lobe and extending along the fissure. There was subcarinal and bilateral hilar lymphadenopathy. There was evidence of post obstructive pneumonia in the right middle and right lower lobes with compression of the right distal mainstem bronchus. There was moderate right pleural effusion. There were numerous metastatic lesions noted in the left lower lobe and additional smaller metastatic lesions in the left upper lobe. Also noted were numerous nodular metastatic lesions along the right cardiophrenic angle, the largest measuring 2.0 cm. Innumerable peripheral enhancing masslike lesions were noted throughout both hepatic lobes compatible with metastatic disease. Multiple metastatic peritoneal implants were noted in the upper and mid abdomen. The adrenal glands appeared normal. There were no definite metastatic lesions noted in the thoracic and lumbar spine. On 04/11/2020 she underwent right thoracentesis and ultrasound directed biopsy of a metastatic liver lesion. Pathology results are still pending. At that time, there was an abrupt increase in her serum creatinine to 2.2 mg/dL. By 04/13/2020 it had further increased to 4.3 mg/dL, and today it is down slightly at 4.1 mg/dL. She is now being followed by nephrology. During that time she also developed atrial fibrillation, which converted with medication. Her antibiotic coverage has been changed to meropenem and doxycycline. She is on amiodarone and metoprolol, and she also is on a heparin drip. Review of Systems Const: Reports: change in appetite, fatigue and daytime sleepiness; Denies: fever(s), chills, change in weight, night sweats or other (no hot flashes) Eyes: Reports: blurry vision ENMT: Reports: throat pain, mouth pain, oral sores and sinus pain; Denies: odynophagia, hoarseness, change in hearing or tinnitus Card: Reports: swelling of feet/ankles, lightheadedness, dyspnea on exertion and orthopnea; Denies: chest pain, palpitations or leg pain with exertion Resp: Reports: dyspnea, productive cough and pain on inspiration; Denies: wheezing or hemoptysis GI: Reports: nausea and diarrhea; Denies: abdominal pain, vomiting, dysphagia, heartburn, constipation, hematochezia or melena : Denies: dysuria, urinary frequency, urinary urgency, urinary hesitancy, urinary incontinence or hematuria Musc: Denies: neck pain, back pain, joint pain, joint stiffness or muscle cramps Skin/Breast: Denies: rash or new lesions Neuro: Reports: headache(s), weakness in extremities and dizziness; Denies: numbness in extremities or sensory changes Psych: Denies: anxiety or depression Endo: Reports: polydipsia and tired all the time Morgan/Lymph: Denies: easy bruising or easy bleeding Meds/Allergies Home Medications and Allergies Home Medications Medication Instructions Recorded Confirmed Last Taken Type albuterol sulfate 2 puff INHALATION 6XD PRN 04/08/20 04/08/20 Unknown History doxycycline hyclate 100 mg PO BID 04/08/20 04/08/20 04/08/20 History ipratropium-albuterol 3 ml INHALATION QID 04/08/20 04/08/20 04/08/20 History prednisone See Rx Instructions .ROUTE .COMPLEX 04/08/20 04/08/20 04/08/20 History Allergies Allergy/AdvReac Type Severity Reaction Status Date / Time linezolid Allergy ALGY-Difficulty Verified 04/11/20 18:25 Breathing Current Medications Current Medications Generic Name Dose Route Start Last Admin Trade Name Freq PRN Reason Stop Dose Admin Acetaminophen 650 mg 04/09/20 18:35 04/10/20 08:53 Tylenol PO 650 mg Q6H PRN Administration MILD PAIN Albuterol/Ipratropium 3 ml 04/08/20 21:53 04/14/20 09:19 Duoneb INHALATION 3 ml Q6H PRN Administration SHORTNESS OF BREATH Alprazolam 0.25 mg 04/13/20 13:57 04/13/20 14:13 Xanax PO 0.25 mg Q8H PRN Administration ANXIETY Doxycycline Monohydrate 100 mg 04/10/20 09:00 04/14/20 08:41 Vibramycin PO 100 mg BID [facility] Administration Protocol Heparin Sodium (Beef Lung) 0 unit 04/12/20 22:24 04/13/20 23:05 Heparin IV 1,900 unit PRN PRN Administration Heparin weight-base protocol Protocol Meropenem 1,000 mg/ Sodium 50 mls @ 200 mls/hr 04/11/20 12:00 04/14/20 04:01 Chloride IV Infused Q12H ANGEL Infusion Heparin Sodium/Sodium Chloride 25,000 unit in 500 mls @ 0 mls/hr 04/12/20 22:30 04/13/20 23:05 Heparin Drip IV 15.75 unit/kg/hr .Q0M ANGEL 30 mls/hr Titration Protocol Per Protocol Amiodarone HCl 900 mg/ 518 mls @ 0 mls/hr 04/13/20 00:15 04/14/20 04:26 Dextrose/ IV Miscellaneous IV 0.48 mg/min Supplies .Q0M ANGEL 16.7 mls/hr Administration Protocol Per Protocol Metoprolol Tartrate 25 mg 04/13/20 02:55 04/14/20 08:41 Lopressor PO 25 mg BID ANGEL Administration Morphine Sulfate 4 mg 04/10/20 15:22 04/13/20 23:15 Morphine IVP 4 mg Q2H PRN Administration SEVERE PAIN PFSH Acute PFSH: Medical History No pertinent past medical history Surgical History No pertinent past surgical history Family History Mother CAD (coronary artery disease) Social History (Updated 04/14/20 @ 11:58 by Александр Nguyen MD) Smoking and tobacco status: current every day smoker cigarettes [ Other cigarette details: She has smoked for 45 years up to a pack and a half of cigarettes daily. ] Alcohol intake: former Other details last alcohol use: She has a long history of alcohol use which had increased over the past 10 years up to 12 pack of beer per day. She quit 3 to 4 months ago. Substance/Drug Use: never Household members: family Housing: House Female Reproductive History: Other female reproductive history: She had a tubal 38 years ago. Vitals/I&O/Wt Last Vital Signs Temp 97.6 F 04/14/20 08:12 Pulse 77 04/14/20 09:23 Resp 20 H 04/14/20 09:19 BP 154/88 04/14/20 08:12 Pulse Ox 92 04/14/20 09:19 04/13/20 04/14/20 04/14/20 22:59 06:59 14:59 Intake Total 426.133 / 4483.118 578.998 / 5062.116 Balance 426.133 / 4483.118 578.998 / 5062.116 Physical Exam Const: OTHER: She appears generally weak and she appears short of breath with any effort, including talking. HENMT: OTHER: There is Lily in the oral cavity. Eye: COMMON NORMALS: conjunctivae normal and no scleral icterus CONJUNCTIVA: Yes conjunctivae normal Lymph: LYMPHATIC: no lymphadenopathy noted (No cervical, clavicular, axillary, or inguinal lymphadenopathy) Resp: OTHER: Breath sounds are slightly coarse on the left. There is virtually no air movement on the right. Cardio: COMMON NORMALS: regular rate, regular rhythm, No gallops present (Cardio), No murmurs present (Cardio) and No rub (Cardio) RATE: regular rate RHYTHM: regular rhythm GI: COMMON NORMALS: Soft to palpation, non-tender, No hepatosplenomegaly present and no masses INSPECTION: Yes abdominal distension PALPATION: Yes Soft to palpation, Yes No hepatosplenomegaly present and No Ascites present PERCUSSION: tympanic to percussion : COMMON NORMALS: Yes no CVA tenderness BLADDER/KIDNEY EXAM: Yes no CVA tenderness Back/Pelvis: COMMON NORMALS: no CVA tenderness and no thoracic nor lumbar tenderness Extremity: NARRATIVE EXTREMITY EXAM: There is 2+ lower extremity edema. Neuro: COMMON NORMALS: no focal motor deficits and no sensory deficits noted Skin: NARRATIVE SKIN EXAM: No evidence of skin eruption. No suspicious skin lesions noted. Data Micro: Micro: Microbiology 04/11/20 13:10 Gram Stain - Final Pleural Fluid Body Fluid Culture - Final 04/08/20 17:35 Blood Culture - Fi nal Blood NO GROWTH AFTER 5 DAYS 04/08/20 18:59 Blood Culture - Fi nal Blood NO GROWTH AFTER 5 DAYS 04/11/20 13:10 Mycobacterial Smea r - Preliminary Body Fluids - Ple ura A&P Assessment and plan (1) Acute kidney injury: Status: Acute (2) Obstructive pneumonia: Status: Acute (3) Acute diastolic heart failure: Status: Acute (4) New onset atrial fibrillation: Status: Acute (5) Pleural effusion: Status: Acute (6) Metastatic cancer: Status: Acute Qualifiers: Area of secondary neoplastic involvement: lymph node Lymph node location: intrathoracic region Qualified Code(s): C77.1 - Secondary and unspecified malignant neoplasm of intrathoracic lymph nodes (7) Hyponatremia: Status: Acute (8) Malignant neoplasm of right main bronchus: Status: Acute Coding Level of Care Code 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
--- NOTE | 2020-04-14 12:44 | PC.NURSE ---
Spoke the Dr Fraire about patients antibiotics; patient has amiorerone as well as heparin running in bilateral IVs, Antibiotic is not compatible with other medications infusing ok to delay antibiotics until cardiology makes decisions on amiderone
[2020-04-14] MEDS: nystatin 100,000 unit/mL UDC 5 mL 500000 UNIT PO ×3 (13:26→21:31)
[2020-04-14] MEDS: fixodent 39 gm Tube 1 APPLIC DENTAL (13:27)
[2020-04-14] MEDS: heparin drip 25,000 UNIT/500 ML PREMIX 30 UNIT IV (15:15)
--- NOTE | 2020-04-14 16:02 | PC.NURSE ---
patient has been pleasant this shift although reports being very sleepy denies pain. Patient sat up on edge of bed unable to become comfortable enough to fall into deep sleep. Patine provided with extra pillows to aide in comfort.
--- NOTE | 2020-04-14 16:40 | PC.NURSE ---
Addendum entered by Gracy Mcgill RN 04/14/20 19:22: ALSO STOP AMIODERONE WHEN CURRENT BAG IS INFUSED Original Note: Dr Calderon on unit discussed amioderone drip with this nurse, instructions to give amioderone 400mg PO BID starting at 0900 and give 12 hours apart
[2020-04-14 17:16] LABS: Partial Thromboplastin Time 53.8 SECONDS (23.9-36.7)
--- NOTE | 2020-04-14 17:24 | P.PN_ITS ---
Subjective Subjective: Interval history: Patient is still short of breath. She looks little more comfortable today than yesterday. She converted into sinus rhythm 1 hour after the IV digoxin. She continues to be on IV amiodarone. She was given a total of 0.5 mg of digoxin IV. Denies any fever or chills. Occasional dry cough. Medications: Reviewed: Yes Medication Review Details: Current Medications Acetaminophen (Tylenol) 650 mg PO Q6H PRN PRN Reason: MILD PAIN Last Admin: 04/10/20 08:53 Dose: 650 mg Documented by: Albuterol/Ipratropium (Duoneb) 3 ml INHALATION Q6H PRN PRN Reason: SHORTNESS OF BREATH Last Admin: 04/14/20 14:36 Dose: 3 ml Documented by: Alprazolam (Xanax) 0.25 mg PO Q8H PRN PRN Reason: ANXIETY Last Admin: 04/13/20 14:13 Dose: 0.25 mg Documented by: Amiodarone HCl (Cordarone) 400 mg PO [facility] Denture Adhesive (Fixodent) 1 applic DENTAL PRN PRN PRN Reason: denture adhesive Last Admin: 04/14/20 13:27 Dose: 1 applic Documented by: Doxycycline Monohydrate (Vibramycin) 100 mg PO BID [facility]; Protocol Last Admin: 04/14/20 17:20 Dose: 100 mg Documented by: Heparin Sodium (Beef Lung) (Heparin) 0 unit IV PRN PRN; Protocol PRN Reason: Heparin weight-base protocol Last Admin: 04/13/20 23:05 Dose: 1,900 unit Documented by: Meropenem 1,000 mg/ Sodium (Chloride) 50 mls @ 200 mls/hr IV Q12H [facility] Last Infusion: 04/14/20 13:40 Dose: Infused Documented by: Heparin Sodium/Sodium Chloride (Heparin Drip) 25,000 unit in 500 mls @ 0 mls/hr IV .Q0M [facility]; Protocol Last Admin: 04/14/20 15:15 Dose: 15.75 unit/kg/hr, 30 mls/hr Documented by: Amiodarone HCl 900 mg/Dextrose/ IV Miscellaneous Supplies 518 mls @ 0 mls/hr IV .Q0M [facility]; Protocol Last Admin: 04/14/20 04:26 Dose: 0.48 mg/min, 16.7 mls/hr Documented by: Metoprolol Tartrate (Lopressor) 25 mg PO BID [facility] Last Admin: 04/14/20 17:21 Dose: 25 mg Documented by: Nystatin (Nystatin) 500,000 unit PO QID [facility] Last Admin: 04/14/20 17:21 Dose: 500,000 unit Documented by: Vitals/I&O/Wt Last Vital Signs Temp 97.6 F 04/14/20 08:12 Pulse 88 04/14/20 14:39 Resp 18 04/14/20 14:36 BP 161/91 04/14/20 14:00 Pulse Ox 92 04/14/20 14:36 04/14/20 04/14/20 04/14/20 06:59 14:59 22:59 Intake Total 578.998 / 5062.116 660.867 / 660.867 Balance 578.998 / 5062.116 660.867 / 660.867 Physical Exam Narrative: EXAM NARRATIVE: GENERAL: The patient is alert and oriented times three. Patient is somewhat tachypneic and complaining of difficulty in breathing. Moderately obese. HEENT: No significant pallor, icterus or lymphadenopathy. The pupils are reactant to light. Oral cavity: There are no mucous membrane lesions. NECK: Trachea appears to be central. No masses noted. No JVD or thyromegaly appreciated. No carotid bruit. RESPIRATORY: Chest is symmetrical. No intercostals muscle retraction or any accessory muscle activation. There is no chest wall tenderness. Breath sounds are heard bilaterally. Diminished intensity of breath sounds in the both bases. Scattered coarse crackles. BREASTS: Deferred. HEART: The PMI could not be palpated. No palpable precordial events. S1 and S2 are normal. No S3 or S4 heard. No pericardial rub or any click heard. ABDOMEN: No vessel pulsations or distention. No tenderness. No organomegaly appreciated. No abdominal bruit. Bowel sounds are normally heard. : Deferred. RECTAL: Deferred. LYMPHATIC: No lymphadenopathy noted in the neck. EXTREMITIES: 1-2+ edema both lower extremities. No cyanosis. MUSCULOSKELETAL: No acute joint deformities or swelling SKIN: There are no significant scars or skin rash noted. NEUROPSYCHIATRIC: The patient is alert and oriented x3. Tachypneic. The higher functions are grossly within normal limits. No tremors or rigidity noted. Data : 04/14/20 03:22 04/14/20 03:22 Micro: Microbiology 04/11/20 13:10 Gram Stain - Final Pleural Fluid Body Fluid Culture - Final 04/08/20 17:35 Blood Culture - Final Blood NO GROWTH AFTER 5 DAYS 04/08/20 18:59 Blood Culture - Final Blood NO GROWTH AFTER 5 DAYS 04/11/20 13:10 Mycobacterial Smear - Preliminary Body Fluids - Pleura Chest x-ray from today revealed 1. Bilateral lower lobe parenchymal densities 2. Right perihilar mass 3. Right lower lobe pleural effusion A&P Assessment and plan (1) New onset atrial fibrillation: Patient currently is in sinus rhythm. She is still on IV amiodarone. The vital signs are stable. Status: Acute (2) Acute diastolic heart failure: Clinically appears to be compensated. Patient is stable hemodynamically Status: Acute (3) Pleural effusion: Possibly from the metastatic lesions. Patient apparently has extensive lesions including the pleura. Has moderate effusion on the right side, based on the chest x-ray Status: Acute (4) Metastatic cancer: Possible primary from the lung. Studies are still pending. Management decisions as per the oncology service Status: Acute Qualifiers: Area of secondary neoplastic involvement: lymph node Lymph node location: intrathoracic region Qualified Code(s): C77.1 - Secondary and unspecified malignant neoplasm of intrathoracic lymph nodes (5) Obstructive pneumonia: Patient is on multiple antibiotics. Clinically seems to be improving Status: Acute (6) Acute kidney injury: Patient is being followed by the nephrology service. He of the acute renal failure is not clear. Antibiotics, contrast-induced nephropathy, etc. are considerations. The kidney function seems stable Status: Acute Additional A&P Information Once the current IV infusion of the amiodarone is finished, she may be started on amiodarone 400 mg p.o. twice daily. May continue on the other current medications. Based on the clinical progress, further management decisions will be made. Attestations Medical Necessity Statement*: Patient requires continued hospital stay for close monitoring and further management Coding Level of Care Code Acute Reservations Specialist for [facility] Fwd Diagnoses New onset atrial fibrillation I48.91 Acute diastolic heart failure I50.31 Pleural effusion J90 Metastatic cancer C77.1 Area of secondary neoplastic involvement: lymph node Lymph node location: intrathoracic region Obstructive pneumonia J18.9 Acute kidney injury N17.9
--- NOTE | 2020-04-14 17:28 | PC.NURSE ---
Patients PTT results for heparin drip 53.[address] Fraire in regards to protocol calling for a 1900 unit bolus and a rate increase of 2mls/hr instructions to hold the bolus and titrate up the protocol 2 mls per hour.
--- NOTE | 2020-04-14 20:33 | PC.NURSE ---
Patient complains of chronic shortness of breath. Oxygen saturation was at 85 percent on 7 L NC high flow. RT turned patient up to 8 L, bringing oxygen saturation up to 94 percent. Will monitor.
--- NOTE | 2020-04-14 22:19 | PC.NURSE ---
Patient states that nystatin stuff makes my throat bleed. Bleeding was not observed by nurse. There is no blood to be found, however patient states that it makes her throat bleeds every time.
[2020-04-14 23:17] LABS: Partial Thromboplastin Time 59.6 SECONDS (23.9-36.7)
[2020-04-15] VITALS (168 sets, daily range): BP systolic 116–179; BP diastolic 66–105; PULSE 67–141; RESP 13–31; TEMP 36–36.9; O2SAT 84–99
[2020-04-15 00:35] LABS: Urine Creatinine 91 mg/dL (28-217); Urine Protein Random 17 mg/dL
[2020-04-15 00:37] LABS: UPRO/UCREAT Ratio 0.19 mg/mg CR; Urine Random Sodium 10 mmol/L
[2020-04-15] MEDS: ALPRAZolam 0.25 mg Tablet PO (01:55)
--- NOTE | 2020-04-15 04:01 | PC.NURSE ---
Patient has no complaints at this time. Will monitor.
[2020-04-15 06:10] LABS: Basophils # 0.1 10^3/uL (0.0-0.1); Basophils % 0.2 %; Hematocrit 37.6 % (37.0-47.0); Hemoglobin 12.7 g/dL (11.5-15.3); Lymphocytes # 0.7 10^3/uL (0.8-4.8); Lymphocytes % 3.2 %; Mean Corpuscular HGB Conc 33.8 g/dL (30.0-36.0); Mean Corpuscular Hemoglobin 31.5 pg (28.0-34.0); Mean Corpuscular Volume 93.3 fL (81-99); Mean Platelet Volume 10.1 fL (7.4-10.4); Monocytes # 1.3 10^3/uL (0.2-0.9); Monocytes % 5.8 %; Neutrophils # 19.12 10^3/uL (1.8-7.7); Neutrophils % 86.5 %; Nucleated Red Blood Cells % 0 %; Platelet Count 378 10^3/cmm (130-400); Red Blood Count 4.03 10^6/uL (4.1-5.3); Red Cell Distribution Width 12.5 % (12.1-15.1); White Blood Count 22.1 10^3/uL (4.0-10.0)
--- NOTE | 2020-04-15 06:12 | PC.NURSE ---
Lab called to notify nurse that they would have to come redraw the patient's stat PTT.
[2020-04-15 06:28] LABS: Alanine Aminotransferase 63 U/L (0-33); Albumin Level 3.2 g/dL (3.5-5.2); Alkaline Phosphatase 190 IU/L (35-105); Aspartate Amino Transferase 41 U/L (0-32); Blood Urea Nitrogen 65 mg/dL (8-23); Calcium 9.9 mg/dL (8.5-10.5); Carbon Dioxide 17 mmol/L (22-29); Chloride 93 mmol/L (98-107); Glomerular Filtration Rate 10.2 mL/min (90-130); Glucose 115 mg/dL (65-115); Magnesium 2.4 mg/dL (1.7-2.3); Osmolality Calculated 286 mOsm/kg (285-295); Sodium 128 mmol/L (136-145); Total Bilirubin 0.3 mg/dL (0.15-1.2); Total Protein 6.2 g/dL (6.6-8.7)
[2020-04-15 06:35] LABS: Anion Gap 22.3 (5-19); Potassium 4.3 mmol/L (3.5-5.1)
[2020-04-15 07:11] LABS: Partial Thromboplastin Time 66.3 SECONDS (23.9-36.7)
[2020-04-15] MEDS: heparin drip 25,000 UNIT/500 ML PREMIX 32 UNIT IV (07:41)
--- NOTE | 2020-04-15 08:26 | ECG_ITS ---
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 Measurements Intervals [place] Rate: 140 P: WI: -1 QRS: 74 QRSD: 84 T: -60 QT: 205 QTc: 313 Interpretive Statements ATRIAL FLUTTER/TACHYCARDIA WITH RAPID VENTRICULAR RESPONSE NONSPECIFIC ST & T-WAVE ABNORMALITY INTERPRETATION BASED ON A DEFAULT AGE OF 40 YEARS Compared to ECG 04/12/2020 22:29:53 Atrial fibrillation no longer present Possible ischemia no longer present T-wave abnormality still present Electronically Signed On 04-15-2020 17:57:07 CDT by Abe Calderon M.D. [id number]
--- NOTE | 2020-04-15 08:28 | PC.NURSE ---
patient noted to have an increase in HR at this time to 140's sustained patient appears asymptomatic at this time sitting up in bed. Bp is 146/[address] york notified and a stat ekg via protocol ordered
[2020-04-15] MEDS: metoprolol tartrate 25 mg Tablet PO ×2 (08:40→09:53)
[2020-04-15] MEDS: amiodarone 200 mg Tablet 400 MG PO ×2 (08:40→21:34)
[2020-04-15] MEDS: doxycycline 100 mg Tablet PO ×2 (08:40→17:56)
[2020-04-15] MEDS: nystatin 100,000 unit/mL UDC 5 mL 500000 UNIT PO ×3 (08:40→21:34)
--- NOTE | 2020-04-15 09:33 | PC.NURSE ---
EKg obtained notified Dr york
--- NOTE | 2020-04-15 09:44 | PC.NURSE ---
Dr Calderon on unit and notified about patients elevated Hr verbal instructions given to give a one time dose of 25mg metoprolol now and change current order to 50mg metoprolol PO bid
--- NOTE | 2020-04-15 10:30 | PM.PN ---
Subjective Subjective: Interval history: The patient continues to have the shortness of breath. She went back into atrial fibrillation this morning. Still on the amiodarone. She also is on metoprolol 25 mg p.o. twice daily. She seems to be very uncomfortable with the pain and shortness of breath in the chest. Medications: Reviewed: Yes Medication Review Details: Current Medications Acetaminophen (Tylenol) 650 mg PO Q6H PRN PRN Reason: MILD PAIN Last Admin: 04/10/20 08:53 Dose: 650 mg Documented by: Albuterol/Ipratropium (Duoneb) 3 ml INHALATION Q6H PRN PRN Reason: SHORTNESS OF BREATH Last Admin: 04/14/20 19:33 Dose: 3 ml Documented by: Alprazolam (Xanax) 0.25 mg PO Q8H PRN PRN Reason: ANXIETY Last Admin: 04/15/20 01:55 Dose: 0.25 mg Documented by: Amiodarone HCl (Cordarone) 400 mg PO [facility] Last Admin: 04/15/20 08:40 Dose: 400 mg Documented by: Denture Adhesive (Fixodent) 1 applic DENTAL PRN PRN PRN Reason: denture adhesive Last Admin: 04/14/20 13:27 Dose: 1 applic Documented by: Doxycycline Monohydrate (Vibramycin) 100 mg PO BID [facility]; Protocol Last Admin: 04/15/20 08:40 Dose: 100 mg Documented by: Heparin Sodium (Beef Lung) (Heparin) 0 unit IV PRN PRN; Protocol PRN Reason: Heparin weight-base protocol Last Admin: 04/13/20 23:05 Dose: 1,900 unit Documented by: Meropenem 1,000 mg/ Sodium (Chloride) 50 mls @ 200 mls/hr IV Q12H [facility] Last Infusion: 04/14/20 22:36 Dose: Infused Documented by: Heparin Sodium/Sodium Chloride (Heparin Drip) 25,000 unit in 500 mls @ 0 mls/hr IV .Q0M [facility]; Protocol Last Admin: 04/15/20 07:41 Dose: 16.8 unit/kg/hr, 32 mls/hr Documented by: Amiodarone HCl 900 mg/Dextrose/ IV Miscellaneous Supplies 518 mls @ 0 mls/hr IV .Q0M [facility]; Protocol Last Titration: 04/14/20 22:36 Dose: 0.48 mg/min, 16.7 mls/hr Documented by: Metoprolol Tartrate (Lopressor) 50 mg PO BID [facility] Nystatin (Nystatin) 500,000 unit PO QID [facility] Last Admin: 04/15/20 08:40 Dose: 500,000 unit Documented by: Vitals/I&O/Wt Last Vital Signs Temp 97.8 F 04/15/20 07:54 Pulse 141 H 04/15/20 08:42 Resp 22 H 04/15/20 08:42 BP 146/92 04/15/20 07:54 Pulse Ox 91 04/15/20 08:42 04/14/20 04/15/20 04/15/20 22:59 06:59 14:59 Intake Total 656.987 / 1317.854 580 / 1897.854 672.5 / 672.5 Output Total 200 / 200 Balance 656.987 / 1317.854 380 / 1697.854 672.5 / 672.5 Physical Exam Narrative: EXAM NARRATIVE: GENERAL: The patient is alert and oriented times three. Patient is somewhat tachypneic and complaining of difficulty in breathing. Moderately obese. HEENT: No significant pallor, icterus or lymphadenopathy. The pupils are reactant to light. Oral cavity: There are no mucous membrane lesions. NECK: Trachea appears to be central. No masses noted. No JVD or thyromegaly appreciated. No carotid bruit. RESPIRATORY: Chest is symmetrical. No intercostals muscle retraction or any accessory muscle activation. There is no chest wall tenderness. Breath sounds are heard bilaterally. Diminished intensity of breath sounds in the both bases. Scattered coarse crackles. BREASTS: Deferred. HEART: The PMI could not be palpated. No palpable precordial events. S1 and S2 are normal. No S3 or S4 heard. No pericardial rub or any click heard. ABDOMEN: No vessel pulsations or distention. No tenderness. No organomegaly appreciated. No abdominal bruit. Bowel sounds are normally heard. : Deferred. RECTAL: Deferred. LYMPHATIC: No lymphadenopathy noted in the neck. EXTREMITIES: 1-2+ edema both lower extremities. No cyanosis. MUSCULOSKELETAL: No acute joint deformities or swelling SKIN: There are no significant scars or skin rash noted. NEUROPSYCHIATRIC: The patient is alert and oriented x3. Tachypneic. The higher functions are grossly within normal limits. No tremors or rigidity noted. Data : 04/16/20 03:25 04/16/20 03:25 Micro: Microbiology 04/11/20 13:10 Gram Stain - Final Pleural Fluid Body Fluid Culture - Final A&P Assessment and plan (1) New onset atrial fibrillation: Patient currently is in sinus rhythm. She is still on IV amiodarone. The vital signs are stable. Status: Acute (2) Acute diastolic heart failure: Clinically appears to be compensated. Patient is stable hemodynamically Status: Acute (3) Pleural effusion: Possibly from the metastatic lesions. Patient apparently has extensive lesions including the pleura. Has moderate effusion on the right side, based on the chest x-ray Status: Acute (4) Metastatic cancer: Possible primary from the lung. Studies are still pending. Management decisions as per the oncology service Status: Acute Qualifiers: Area of secondary neoplastic involvement: lymph node Lymph node location: intrathoracic region Qualified Code(s): C77.1 - Secondary and unspecified malignant neoplasm of intrathoracic lymph nodes (5) Obstructive pneumonia: Patient is on multiple antibiotics. Clinically seems to be improving Status: Acute (6) Acute kidney injury: Patient is being followed by the nephrology service. He of the acute renal failure is not clear. Antibiotics, contrast-induced nephropathy, etc. are considerations. The kidney function seems stable Status: Acute Additional A&P Information Once the current IV infusion of the amiodarone is finished, she may be started on amiodarone 400 mg p.o. twice daily. May continue on the other current medications. Based on the clinical progress, further management decisions will be made. Attestations Medical Necessity Statement*: Disposition as per the primary Coding Level of Care Code Acute Cash Management Coordinator for [facility] Fwd Diagnoses New onset atrial fibrillation I48.91 Acute diastolic heart failure I50.31 Pleural effusion J90 Metastatic cancer C77.1 Area of secondary neoplastic involvement: lymph node Lymph node location: intrathoracic region Obstructive pneumonia J18.9 Acute kidney injury N17.9
[2020-04-15] MEDS: meropenem 1,000 MG in sodium chloride 0.9% (plus) 50 ML 200 MG IV (11:51)
[2020-04-15] MEDS: ipratropium-albuterol 3 mL Neb INHALATION (12:33)
[2020-04-15 13:24] LABS: Partial Thromboplastin Time 66.6 SECONDS (23.9-36.7)
--- NOTE | 2020-04-15 13:58 | XRR_ITS ---
PROCEDURE INFORMATION: Exam: XR Chest, 1 View Exam date and time: 04/15/2020 2:11 PM Age: 64 years old Clinical indication: Shortness of breath; Additional info: Increasing SOB TECHNIQUE: Imaging protocol: XR of the chest Views: 1 view. COMPARISON: CR XR chest 1V portable [id number] 04/14/2020 12:58 PM FINDINGS: Lungs: Diffuse interstitial congestion is seen in the bilateral perihilar and lower lobes. A mass lesion is seen in the right perihilar region measuring 26 mm x 19 mm. this finding is at the level of the right 6th rib Pleural space: Right lower lobe pleural effusion. No pneumothorax. Heart/Mediastinum: Bilateral perihilar soft tissue mass lesions are seen these were documented on prior CT examination No cardiomegaly. Bones/joints: Unremarkable. XR/XR chest 1V portable [id number] IMPRESSION: 1. Diffuse interstitial congestion in both lungs as described 2. Stable right upper lobe mass 3. Stable bilateral perihilar and right mediastinal mass 4. Large right lower lobe pleural effusion
--- NOTE | 2020-04-15 14:18 | PC.NURSE ---
1320 patient placed on bipap by rt [address] chela BARBOZA for transfer to ICU for continued decompensation.
--- NOTE | 2020-04-15 14:23 | PM.PN ---
Subjective Subjective: Interval history: Increasing SOB today. Uncomfortable. Passing urine, denies uremic Sx. Went back into Afib while on Amiodarone gtt. Some LE edema. Medications: Reviewed: Yes Medication Review Details: Current Medications Acetaminophen (Tylenol) 650 mg PO Q6H PRN PRN Reason: MILD PAIN Last Admin: 04/10/20 08:53 Dose: 650 mg Documented by: Albuterol/Ipratropium (Duoneb) 3 ml INHALATION Q6H PRN PRN Reason: SHORTNESS OF BREATH Last Admin: 04/14/20 19:33 Dose: 3 ml Documented by: Alprazolam (Xanax) 0.25 mg PO Q8H PRN PRN Reason: ANXIETY Last Admin: 04/15/20 01:55 Dose: 0.25 mg Documented by: Amiodarone HCl (Cordarone) 400 mg PO [facility] Last Admin: 04/15/20 08:40 Dose: 400 mg Documented by: Denture Adhesive (Fixodent) 1 applic DENTAL PRN PRN PRN Reason: denture adhesive Last Admin: 04/14/20 13:27 Dose: 1 applic Documented by: Doxycycline Monohydrate (Vibramycin) 100 mg PO BID [facility]; Protocol Last Admin: 04/15/20 08:40 Dose: 100 mg Documented by: Heparin Sodium (Beef Lung) (Heparin) 0 unit IV PRN PRN; Protocol PRN Reason: Heparin weight-base protocol Last Admin: 04/13/20 23:05 Dose: 1,900 unit Documented by: Meropenem 1,000 mg/ Sodium (Chloride) 50 mls @ 200 mls/hr IV Q12H [facility] Last Infusion: 04/14/20 22:36 Dose: Infused Documented by: Heparin Sodium/Sodium Chloride (Heparin Drip) 25,000 unit in 500 mls @ 0 mls/hr IV .Q0M [facility]; Protocol Last Admin: 04/15/20 07:41 Dose: 16.8 unit/kg/hr, 32 mls/hr Documented by: Amiodarone HCl 900 mg/Dextrose/ IV Miscellaneous Supplies 518 mls @ 0 mls/hr IV .Q0M [facility]; Protocol Last Titration: 04/14/20 22:36 Dose: 0.48 mg/min, 16.7 mls/hr Documented by: Metoprolol Tartrate (Lopressor) 50 mg PO BID [facility] Nystatin (Nystatin) 500,000 unit PO QID [facility] Last Admin: 04/15/20 08:40 Dose: 500,000 unit Documented by: Vitals/I&O/Wt Last Vital Signs Temp 97.8 F 04/15/20 07:54 Pulse 77 04/15/20 12:35 Resp 23 H 04/15/20 12:35 BP 146/92 04/15/20 07:54 Pulse Ox 92 04/15/20 12:35 04/14/20 04/15/20 04/15/20 22:59 06:59 14:59 Intake Total 656.987 / 1317.854 580 / 4894.929 6143.93 / 1127.93 Output Total 200 / 200 Balance 656.987 / 1317.854 380 / 7608.343 9928.93 / 1127.93 Physical Exam Narrative: EXAM NARRATIVE: Constitutional: Awake, conversant, looks tired HEENT: Wet mucosa, no jvp, non icteric Lungs: Bilaterally clear without discernible wheeze or rales in all lung zones CVS: irregular Abdo: Soft, BS ok Ext 4: 1+ edema, peripheral perfusion with no cyanosis Neurological: Grossly non-focal Data : 04/15/20 05:40 04/15/20 05:40 A&P Additional A&P Information 1. DIONISIO - Creatinine slightly higher today, ? renal hypoperfusion from Afib - likely this is a tubular injury from contrast vs Vanco - stat CXR, to see if she will benefit from diuretics - avoid further nephrotoxic exposures - Strict Is and Outs - dose meds for eGFR < 15 - No indication for dialysis and downward trend in creatinine is reassuring 2. 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 Post obstructive pneumonia - Merrem and Doxy on board - cultures so far unrevealing - may need pleurex drain 5. Afib - developed Wednesday; amiodarone infusion and Digoxin - converted to SR 6. Acidosis - noted, defer sodium bicarb to avoid sodium loading but will continue to monitor closely - should resolve as renal function recovers 7. Hyperphos - mild, no need to treat and will watch closely over next few days. - should resolve as renal function recovers Andrew Travis MD [facility] Renal Telemed [phone] Interview and exam performed with the aid of bedside RN using telemed Attestations Medical Necessity Statement*: eval for DIONISIO Coding Level of Care Code Acute Kitchen Mechanic for [facility]
--- NOTE | 2020-04-15 14:58 | PC.NURSE ---
patient transferred to ICU for closer observation of conditions
[2020-04-15 16:19] LABS: ABG PCO2 41.5 mmHg (35-45); ABG PH Result 7.27 (7.35-7.45); Arterial Blood Gas Hematocrit 37.7 % (37-47); Base Excess ABG -7.4 mmol/L (-2.0-2.0); Blood Gas Allen Test Pos; Blood Gas Operator Identificat BD; Blood Gas Sample Site Brachial, right; Blood Gas Sample Type Arterial; HCO3 ABG 19.1 mmol/L (22-26); Oxygen Device BIPAP; PO2 ABG 77.6 mmHg (80.0-100.0)
[2020-04-15] MEDS: FUROsemide 10 mg/mL SDV 10mL 80 MG IVP (16:33)
--- NOTE | 2020-04-15 17:11 | PC.NURSE ---
SUMMARY OF CARE [id number] Patient transferred to ICU from CSU. patient currently on bipap with labored breathing noted by nurse. oxygen saturation reading between 90-94%. patient has bilateral 2+ lower extremity swelling. Torres catheter placed upon admission with 40ml of urine return. Left Forarm IV noted to have swelling and redness runnin g up the arm, slightly warm to the touch. IV removed by nurse. IV catheter intact and coband applied to area. Call to and informed of IV access, PICC line ordered. request for Central line placement. Ultrasound IV completed by KATINA Moreland and in room assessing patient. Verbal order to DC heparin gtt by . Heparin gtt stopped at 1634. Verbal consent from patient to place central line for IV access. Time out: 1703. central line placed by
[2020-04-15 17:23] LABS: Lactic Sepsis W/Reflex 1.5 mmol/L (0.5-2.2); Uric Acid 11.5 mg/dL (2.4-5.7)
--- NOTE | 2020-04-15 17:42 | PM.PN ---
Subjective Subjective: Interval history: The patient was seen and examined. The patient was brought down to ICU on BiPAP with worsening hypoxia and metabolic acidosis. Patient was seen and examined at bedside. She was able to have a conversation. The patient looks comfortable on BiPAP. She had received a dose of 80 mg of Lasix with increased urine output. Chest x-ray obtained today revealed bilateral interstitial opacity and pleural effusion consistent with pulmonary edema. Over the last few days her creatinine has been progressively getting worse. The patient is also on a heparin drip for suspected pulmonary embolism. A bedside ultrasound revealed bilateral B-lines and pleural effusions. Right greater than left. Medications: Reviewed: Yes Vitals/I&O/Wt Last Vital Signs Temp 98.5 F 04/15/20 16:10 Pulse 70 04/15/20 17:02 Resp 22 H 04/15/20 16:10 BP 127/81 04/15/20 16:10 Pulse Ox 95 04/15/20 17:02 04/15/20 04/15/20 04/15/20 06:59 14:59 22:59 Intake Total 580 / 2614.151 2165.93 / 1127.93 284.267 / 1412.197 Output Total 200 / 200 Balance 380 / 1602.472 0213.93 / 1127.93 284.267 / 1412.197 Physical Exam Narrative: EXAM NARRATIVE: General: Patient is awake alert and oriented, in mild distress Neck: Unable to assess JVD Respiratory: Auscultation: Bilateral crackles, no wheezing or rhonchi reduced breath sound at bilateral lower lung bases Cardiovascular: Regular rate and rhythm, S1-S2 present, no murmur, bilateral peripheral edema Abdomen: Soft, nontender, distended from obesity, hepatomegaly with irregular liver surface Skin: No rash Neuro: Mental status is normal, mild ptosis, normal motor and coordination. Urinary Catheter Management^: Torres: Cath Placed During This Visit: yes Urinary Catheter Date of Insertion: 04/15/20 Urinary Catheter Time of Insertion: 15:20 Data : 04/15/20 05:40 04/15/20 05:40 A&P Assessment and plan (1) Acute respiratory failure with hypoxia: Patient has acute hypoxic respiratory failure. This is likely a combination of multiple etiologies. The patient most likely has a component of pneumonia, malignant infiltration of the lung, occlusion of the right pulmonary artery by the malignancy, bilateral pleural effusion, pulmonary edema secondary to fluid overload in the setting of acute kidney injury. The patient is currently broadly covered with antibiotic. The etiology for the sudden decompensation is fluid overload in the setting of oliguric renal failure. The patient has bilateral B-lines on the ultrasound as well as bilateral pleural effusion. The patient had been started on diuresis with Lasix and metolazone. She will likely require another dose of Lasix tonight. The patient is currently comfortable on BiPAP. Status: Acute (2) Metabolic acidosis: The patient has metabolic acidosis secondary to DIONISIO. There is no evidence of lactic acidosis. I am starting the patient on bicarb oral supplement. We will continue with the diuresis for the time being. Status: Acute (3) ATN (acute tubular necrosis): The etiology of the ATN is multifactorial. In addition to the overall patient condition as well as medication induced DIONISIO I do have significant concern for hyperuricemia contributing to the patient's DIONISIO. 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 I am awaiting the final result from the FNA from the liver mass lesion. The cytology from the right sided pleural effusion is pending. Status: Acute (5) Pleural effusion: Pleural effusion revealed lymphocyte predominant pleural effusion likely secondary to malignancy. Also probably contributed by the fluid overload. At this point I am not going to insert any drainage device. We will see how the patient does with diuresis and figure it out from there. Status: Acute (6) Spontaneous tumor lysis syndrome: Small cell lung cancer can have spontaneous tumor lysis syndrome. The patient has progressively increasing uric acid and phosphate level. Fortunately her potassium level has still not started going up. I am going to give the patient a single dose of rasburicase and see how she does. Status: Acute Attestations Medical Necessity Statement*: Will defer to the primary team Coding Level of Care Code Acute Bodily Injury Adjuster for Kenyon Pratt Diagnoses Acute respiratory failure with hypoxia J96.01 Metabolic acidosis E87.2 ATN (acute tubular necrosis) N17.0 Metastatic malignant neoplasm to lung C78.00 Pleural effusion J90 Spontaneous tumor lysis syndrome E88.3
--- NOTE | 2020-04-15 17:45 | P.PN_ITS ---
Subjective Subjective: Interval history: patient has been seen multiple times during course of the day due to worsening respiratory status. She has had increasing 02 requirements, tachypnea, respiratory fatigue needing placement on Bipap and transfer to ICU due to high risk of progression to intubation. CVC has been placed by Dr. Jordan. prelim path appears to be concerning for malignancy, likely small cell lung ca. this morning has episodes of RVR for which metoprolol was increased to 50 mg Medications: Reviewed: Yes Vitals/I&O/Wt Last Vital Signs Temp 98.5 F 04/15/20 16:10 Pulse 70 04/15/20 17:02 Resp 22 H 04/15/20 16:10 BP 127/81 04/15/20 16:10 Pulse Ox 95 04/15/20 17:02 04/15/20 04/15/20 04/15/20 06:59 14:59 22:59 Intake Total 580 / 8000.640 6470.93 / 1127.93 284.267 / 1412.197 Output Total 200 / 200 Balance 380 / 2576.207 6188.93 / 1127.93 284.267 / 1412.197 Physical Exam Narrative: EXAM NARRATIVE: GEN: Awake, alert and oriented, moderate respiratory distress CVS: S1S2 N RS: B/L coarse crackles to auscultation Abd: Soft, nt/nd , bs+ 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 EXT: B/L LE edema, fine reticular lacing Urinary Catheter Management^: Torres: Cath Placed During This Visit: yes Urinary Catheter Date of Insertion: 04/15/20 Urinary Catheter Time of Insertion: 15:20 Data : 04/15/20 05:40 04/15/20 05:40 A&P Assessment and plan (1) Community acquired pneumonia: Status: Acute (2) Orthopnea: Status: Acute (3) Polydipsia: Status: Acute (4) Hyponatremia: Status: Acute (5) New onset of congestive heart failure: Status: Acute (6) Abnormal transaminases: Status: Acute (7) Sepsis: Status: Acute Additional A&P Information # Metastatic malignancy with unknown primary under evlauation Per prelim path report from liver biopsy, malignancy is identified, appears to be small cell lung ca however awaiting confirmatory testing. # Hypoxic respiratory failure, multifactorial related to likely lung malignancy, B/L pleural effusions, increasing as of most recent CXR, incraesing pulmonary vascular congestion and pulmonary edema, post obstructive pneumonia. lasix 80mg IVP this evening Torres to monitor I/O, daily weight Appreciate pulmonary recommendations Holding off on thoracentesis for now pending response to diuretics Will need to closely monitor and balance alongside of rising creatinine check ABG Started on Bipap this afternoon to maintain 02 saturation Transferred to ICU continue meropenem for now, will attempt to de escalate , discontinue doxycycline as less likely to be atypical PNA, MRSA screen negative Fluid gram stain and cx negative to date from thoracentesis # Hyponatremia. 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 Possibly it is secondary to lung disease and malignancy. Appreciate nephrology recommendations # Acute kidney injury. Continues to worsen with Cr up to 4.4 now. Iv diuresis as above, clinically signs of volume overload + montior I/O, daily weight, patient agreeable for HD if needed # New onset atrial fibrillation with RVR. This morning with uncontrolled HR, metoprolol increases, amiodarone drip continuing with Po overlap. Appreciate cardiology recommendations # Presumed PE, unable to get a V/Q scan due to inability to lie flat today. Discussed with Dr. Jordan, findings appear c/w compression from external lung mass rather than PE, heparin drip discontinued. Switch to ppx a/c DVT prophylaxis. The plan of care was discussed with the patient. She verbalized understanding and agreement. She is currently alert, awake and oriented. In the event of decompensation to the point where she is unable to make her own decisions, she wishes to make her grand daughter Vicki her DPOA. Above has been discussed with Vicki and she is in agreement. Patient has one son, who is currently incarcerated and per her has not been involved in her care until now. Had an extensive discussion with her regarding GOC, she wishes to continue with full code ,including all measures such as CVCs, pressors, intubation, CPR, HD as may be necessary. Attestations Medical Necessity Statement*: worsening respiratory status, hypoxic respiratory failure, worsening DIONISIO Coding Level of Care Code Acute Spent Grain Dryer for Terrieg Fwd Diagnoses Community acquired pneumonia J18.9 Orthopnea R06.01 Polydipsia R63.1 Hyponatremia E87.1 New onset of congestive heart failure I50.9 Abnormal transaminases R74.8 Sepsis A41.9
[2020-04-15] MEDS: metOLazone 5 MG Tablet PO (17:55)
[2020-04-15] MEDS: metoprolol tartrate 50 mg Tablet PO (17:57)
[2020-04-15] MEDS: sodium bicarbonate 650 mg Tablet PO (17:57)
--- NOTE | 2020-04-15 18:00 | PC.NURSE ---
Consent from granddaughter patients gerardoughterVicki gave verbal consent for central line. irwinughter also stated that she will be patients DPOA. Verbal okay from patient that she would like Vicki moore to be DPOA.
--- NOTE | 2020-04-15 18:02 | PM.ACPR ---
Procedure/Consent Time out: Time Out Performed: Yes Consent: Consent for Procedure: Consent obtained from patient Procedure Narrative: Name of the Procedure: Right femoral Central venous catheter placement under ultrasound guidance. Indication: Frequent blood work and possible need for vasopressor and IV access Anesthesiia: Lidocaine 1%, 5 ml Description of the procedure: The right femoral vein was identified with the Ultrasound from collapsibility and lack of pulsatility. The site was prepared using sterile technique. The skin and subcuteneous tissue was anesthetized using lidocaine. The introducer needle was advanced under US guidance till flash back was noted. Dark, non pulsatile blood noted. The guidewire was inserted and confirmed by the ultrasound. Using seldinger technique the CVC was put in.Blood return was noted in all ports. Catheter was secured with suture and covered with transparent dressing. Complications: None Acute Procedures Epistaxis Control: Time out performed: Yes
--- NOTE | 2020-04-15 18:45 | PC.NURSE ---
Received report on patient from Hollie AMBRIZ. Assumed care at this time.
--- NOTE | 2020-04-15 19:05 | PC.NURSE ---
Labs drawn from R femoral line.
--- NOTE | 2020-04-15 19:25 | PC.NURSE ---
Granddaughter at bedside.
--- NOTE | 2020-04-15 19:27 | PC.NURSE ---
Patient stated that she needed to have a bowel movement. Placed on bedpan. Granddaughter remains at bedside.
--- NOTE | 2020-04-15 19:28 | PC.NURSE ---
Received report on patient from Hollie AMBRIZ. Assumed care at this time.
--- NOTE | 2020-04-15 20:00 | PC.NURSE ---
Changed central line dressing due to being bloody. Change gown, sheet and bedspread.
[2020-04-16] VITALS (279 sets, daily range): BP systolic 93–143; BP diastolic 55–88; PULSE 40–99; RESP 13–30; TEMP 36.6–36.9; O2SAT 84–100
[2020-04-16] MEDS: meropenem 1,000 MG in sodium chloride 0.9% (plus) 50 ML 200 MG IV ×2 (00:20→12:29)
[2020-04-16 03:33] LABS: Basophils # 0.1 10^3/uL (0.0-0.1); Basophils % 0.2 %; Hematocrit 34.8 % (37.0-47.0); Hemoglobin 11.7 g/dL (11.5-15.3); Lymphocytes # 0.7 10^3/uL (0.8-4.8); Mean Corpuscular HGB Conc 33.6 g/dL (30.0-36.0); Mean Corpuscular Hemoglobin 31.8 pg (28.0-34.0); Mean Corpuscular Volume 94.6 fL (81-99); Mean Platelet Volume 9.8 fL (7.4-10.4); Monocytes # 1.1 10^3/uL (0.2-0.9); Monocytes % 4.8 %; Neutrophils # 20.19 10^3/uL (1.8-7.7); Neutrophils % 87.8 %; Nucleated Red Blood Cells % 0 %; Platelet Count 319 10^3/cmm (130-400); Red Blood Count 3.68 10^6/uL (4.1-5.3); Red Cell Distribution Width 12.4 % (12.1-15.1)
[2020-04-16 04:22] LABS: Magnesium 2.4 mg/dL (1.7-2.3); Uric Acid 0.6 mg/dL (2.4-5.7)
[2020-04-16 04:23] LABS: Alanine Aminotransferase 53 U/L (0-33); Alkaline Phosphatase 220 IU/L (35-105); Anion Gap 22.4 (5-19); Aspartate Amino Transferase 38 U/L (0-32); Calcium 9.8 mg/dL (8.5-10.5); Carbon Dioxide 19 mmol/L (22-29); Chloride 92 mmol/L (98-107); Globulin 2.7 g/dL (1.3-4.6); Glomerular Filtration Rate 8.8 mL/min (90-130); Glucose 102 mg/dL (65-115); Osmolality Calculated 293 mOsm/kg (285-295); Potassium 4.4 mmol/L (3.5-5.1); Sodium 129 mmol/L (136-145); Total Bilirubin 0.3 mg/dL (0.15-1.2); Total Protein 5.7 g/dL (6.6-8.7)
[2020-04-16 04:30] LABS: Blood Urea Nitrogen 82 mg/dL (8-23); Phosphorus 9.4 mg/dL (2.5-4.5)
--- NOTE | 2020-04-16 04:39 | PC.NURSE ---
Took critical lab value report from lab. Updated patients's nurse, Gabbie Walter.
--- NOTE | 2020-04-16 07:59 | PC.NURSE ---
SPOKE WITH DR HURST & DR SANTOS THIS MORNING REGARDING CHANGE IN PT LABS WITH WORSENING KIDNEY FAILURE. DR SANTOS WILL SPEAK WITH ONCOLOGIST REGARDING DIALYSIS & CHEMO. GRANDDAUGHTER CALLED & ASKED TO BE HERE [place] TO SIGN DPOA PAPERWORK. WILL BE APPROXIMATELY 2 HOURS BEFORE SHE GETS HERE.
[2020-04-16] MEDS: ipratropium-albuterol 3 mL Neb INHALATION ×3 (08:29→21:00)
--- NOTE | 2020-04-16 09:29 | P.PN_ITS ---
Subjective Subjective: Interval history: Become increasingly SOB last night, developed some pulm edema, transferred to ICU and started on BIPAP. Lasix 80mg ivp given last night with ~1L urine output. Back in Sinus Rhythm. Some peripheral edema. Medications: Reviewed: Yes Medication Review Details: Current Medications Acetaminophen (Tylenol) 650 mg PO Q6H PRN PRN Reason: MILD PAIN Last Admin: 04/10/20 08:53 Dose: 650 mg Documented by: Albuterol/Ipratropium (Duoneb) 3 ml INHALATION Q6H PRN PRN Reason: SHORTNESS OF BREATH Last Admin: 04/14/20 19:33 Dose: 3 ml Documented by: Alprazolam (Xanax) 0.25 mg PO Q8H PRN PRN Reason: ANXIETY Last Admin: 04/15/20 01:55 Dose: 0.25 mg Documented by: Amiodarone HCl (Cordarone) 400 mg PO ANGEL Last Admin: 04/15/20 08:40 Dose: 400 mg Documented by: Denture Adhesive (Fixodent) 1 applic DENTAL PRN PRN PRN Reason: denture adhesive Last Admin: 04/14/20 13:27 Dose: 1 applic Documented by: Doxycycline Monohydrate (Vibramycin) 100 mg PO BID [facility]; Protocol Last Admin: 04/15/20 08:40 Dose: 100 mg Documented by: Heparin Sodium (Beef Lung) (Heparin) 0 unit IV PRN PRN; Protocol PRN Reason: Heparin weight-base protocol Last Admin: 04/13/20 23:05 Dose: 1,900 unit Documented by: Meropenem 1,000 mg/ Sodium (Chloride) 50 mls @ 200 mls/hr IV Q12H [facility] Last Infusion: 04/14/20 22:36 Dose: Infused Documented by: Heparin Sodium/Sodium Chloride (Heparin Drip) 25,000 unit in 500 mls @ 0 mls/hr IV .Q0M [facility]; Protocol Last Admin: 04/15/20 07:41 Dose: 16.8 unit/kg/hr, 32 mls/hr Documented by: Amiodarone HCl 900 mg/Dextrose/ IV Miscellaneous Supplies 518 mls @ 0 mls/hr IV .Q0M [facility]; Protocol Last Titration: 04/14/20 22:36 Dose: 0.48 mg/min, 16.7 mls/hr Documented by: Metoprolol Tartrate (Lopressor) 50 mg PO BID ANGEL Nystatin (Nystatin) 500,000 unit PO QID ANGEL Last Admin: 04/15/20 08:40 Dose: 500,000 unit Documented by: Vitals/I&O/Wt Last Vital Signs Temp 97.8 F 04/16/20 09:00 Pulse 88 04/16/20 09:00 Resp 18 04/16/20 09:00 BP 143/82 04/16/20 09:00 Pulse Ox 95 04/16/20 09:00 04/15/20 04/16/20 04/16/20 22:59 06:59 14:59 Intake Total 524.267 / 1702.197 50 / 1752.197 Output Total 700 / 700 550 / 1250 Balance -175.733 / 1002.197 -500 / 502.197 Physical Exam Narrative: EXAM NARRATIVE: Constitutional: Awake, conversant, looks tired HEENT: Wet mucosa, no jvp, non icteric Lungs: Bilaterally clear without discernible wheeze or rales in all lung zones CVS: irregular Abdo: Soft, BS ok Ext 4: 1+ edema, peripheral perfusion with no cyanosis Neurological: Grossly non-focal Urinary Catheter Management^: Torres: Cath Placed During This Visit: yes Reason for Continuing Indwelling Catheter: Accurate Measurement of Urinary Output in Critically Ill Patients Urinary Catheter Date of Insertion: 04/15/20 Urinary Catheter Time of Insertion: 15:20 Data : 04/16/20 03:25 04/16/20 03:25 A&P Additional A&P Information 1. DIONISIO - Developing overt renal failure; likely to be progressive ATN in the setting of contrast and Vanco tubular toxicity - Case d/w Dr Nguyen and Dr Webster. Path pending and chemo options to be clarified; if there are options then Mrs Jack would like to proceed with dialysis. If there are no chemo options then any form of life supportive care including dialysis becomes futile and we should further encourage her to have hopsice. - Will keep the team updated - avoid the usuals - redose Lasix today - avoid the usuals 2. 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 Metastatic disease - Onc on board - as mentioned above, plan should become avaialbe today - SIADH is more commonly seen as paraneoplastic syndrome assoc with small cell cancer 4. Post obstructive pneumonia - Merrem and Doxy on board - cultures so far unrevealing - may need pleurex drain 5. Afib - developed Wednesday; amiodarone infusion and Digoxin - converted to SR 6. Acidosis - noted, defer sodium bicarb to avoid sodium loading but will continue to monitor closely - should resolve as renal function recovers 7. Hyperphos - no specific therapy; decrease oral intake, once eating a full diet may need binders. Andrew Travis MD [facility] Renal Telemed [phone] Interview and exam performed with the aid of bedside RN using telemed Attestations Medical Necessity Statement*: eval for renal failure Coding Level of Care Code Acute Certified Flight Instructor for Chg Terence
[2020-04-16] MEDS: sodium bicarbonate 650 mg Tablet PO ×2 (09:40→18:03)
[2020-04-16] MEDS: amiodarone 200 mg Tablet 400 MG PO ×2 (09:40→23:06)
[2020-04-16] MEDS: nystatin 100,000 unit/mL UDC 5 mL 500000 UNIT PO ×3 (09:40→23:07)
[2020-04-16] MEDS: metoprolol tartrate 50 mg Tablet PO ×2 (09:40→18:03)
[2020-04-16] MEDS: FUROsemide 10 mg/mL SDV 10mL 80 MG IVP (10:08)
--- NOTE | 2020-04-16 10:27 | XR_ITS ---
WS: [id number] PORTABLE CHEST HISTORY: picc COMPARISON: 04/15/2020 Right-sided PICC line terminates in the mid to distal SVC. Hyperinflated lungs with persistent pulmonary venous congestion. Slight improvement. Small RIGHT pleu ral effusion. Cardiac size: Normal. Mediastinum/Aorta: Normal mediastinum. No osseous abnormality seen. XR/XR chest 1V portable [id number] IMPRESSION: Satisfactory position right-sided PICC line.
--- NOTE | 2020-04-16 10:52 | PM.PN ---
Subjective Subjective: Interval history: Patient remained on BiPAP overnight. She did diurese around thousand cc after being given Lasix and metolazone. Creatinine this morning is worsened to 5. Patient remains on BiPAP and it has been very difficult to wean her off due to respiratory fatigue and desaturation episodes. She did receive PICC line this morning. Medications: Reviewed: Yes Medication Review Details: Current Medications Acetaminophen (Tylenol) 650 mg PO Q6H PRN PRN Reason: MILD PAIN Last Admin: 04/10/20 08:53 Dose: 650 mg Documented by: Albuterol/Ipratropium (Duoneb) 3 ml INHALATION Q6H PRN PRN Reason: SHORTNESS OF BREATH Last Admin: 04/16/20 08:29 Dose: 3 ml Documented by: Alprazolam (Xanax) 0.25 mg PO Q8H PRN PRN Reason: ANXIETY Last Admin: 04/15/20 01:55 Dose: 0.25 mg Documented by: Amiodarone HCl (Cordarone) 400 mg PO [facility] Last Admin: 04/16/20 09:40 Dose: 400 mg Documented by: Denture Adhesive (Fixodent) 1 applic DENTAL PRN PRN PRN Reason: denture adhesive Last Admin: 04/14/20 13:27 Dose: 1 applic Documented by: Meropenem 1,000 mg/ Sodium (Chloride) 50 mls @ 200 mls/hr IV Q12H [facility] Last Admin: 04/16/20 12:29 Dose: 200 mls/hr Documented by: Amiodarone HCl 900 mg/Dextrose/ IV Miscellaneous Supplies 518 mls @ 0 mls/hr IV .Q0M [facility]; Protocol Last Titration: 04/15/20 11:30 Dose: Infused Documented by: Metoprolol Tartrate (Lopressor) 50 mg PO BID [facility] Last Admin: 04/16/20 09:40 Dose: 50 mg Documented by: Nystatin (Nystatin) 500,000 unit PO QID [facility] Last Admin: 04/16/20 12:37 Dose: Not Given Documented by: Sodium Bicarbonate (Sodium Bicarbonate) 650 mg PO BID [facility] Last Admin: 04/16/20 09:40 Dose: 650 mg Documented by: Vitals/I&O/Wt Last Vital Signs Temp 97.8 F 04/16/20 09:00 Pulse 72 04/16/20 10:15 Resp 18 04/16/20 10:15 BP 128/77 04/16/20 10:25 Pulse Ox 95 04/16/20 10:20 04/15/20 04/16/20 04/16/20 22:59 06:59 14:59 Intake Total 524.267 / 1702.197 50 / 1752.197 50 / 50 Output Total 700 / 700 550 / 1250 Balance -175.733 / 1002.197 -500 / 502.197 50 / 50 Physical Exam Narrative: EXAM NARRATIVE: GEN: Awake, alert and oriented, moderate respiratory distress , currently on BiPAP CVS: S1S2 N RS: B/L coarse crackles to auscultation Abd: Soft, nt/nd , bs+ 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 EXT: B/L LE edema, fine reticular lacing Urinary Catheter Management^: Torres: Cath Placed During This Visit: yes Reason for Continuing Indwelling Catheter: Accurate Measurement of Urinary Output in Critically Ill Patients Urinary Catheter Date of Insertion: 04/15/20 Urinary Catheter Time of Insertion: 15:20 Data : 04/16/20 03:25 04/16/20 03:25 A&P Assessment and plan (1) Community acquired pneumonia: Status: Acute (2) Orthopnea: Status: Acute (3) Polydipsia: Status: Acute (4) Hyponatremia: Status: Acute (5) New onset of congestive heart failure: Status: Acute (6) Abnormal transaminases: Status: Acute (7) Sepsis: Status: Acute Additional A&P Information # Metastatic malignancy with unknown primary under evlauation Per prelim path report from liver biopsy, malignancy is identified, suspicious to be to be small cell lung ca however awaiting confirmatory testing. If pathology does return with small cell lung cancer, there may be a role of chemotherapy, however this remains to be discussed with Dr. Nguyen. If patient does end up starting chemotherapy, would be prudent to use dialysis alongside to give her a best chance of recovery. # Hypoxic respiratory failure, multifactorial related to likely lung malignancy, B/L pleural effusions, increasing as of most recent CXR, incraesing pulmonary vascular congestion and pulmonary edema, post obstructive pneumonia. Trial of Lasix and metolazone given last evening. Patient did have some urine output, however creatinine this morning trending up to 5. Also continues to be anasarca Torres to monitor I/O, daily weight Appreciate pulmonary and renal recommendations Holding off on thoracentesis for now pending response to diuretics Continues to be on BiPAP, attempts to wean leading to desaturation and respiratory fatigue. Fluid gram stain and cx negative to date from thoracentesis # Hyponatremia. 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 Possibly it is secondary to lung disease and malignancy. Appreciate nephrology recommendations # Acute kidney injury. Continues to worsen with Cr up to 5 now. clinically signs of volume overload + . montior I/O, daily weight, patient agreeable for HD if needed # New onset atrial fibrillation with RVR. Heart rate is better controlled today. # Presumed PE, unable to get a V/Q scan due to inability to lie flat. Discussed with Dr. Jordan, findings appear c/w compression from external lung mass rather than PE, heparin drip discontinued. Switch to ppx a/c DVT prophylaxis. The plan of care was discussed with the patient and her granddaughter kamran. Attestations Medical Necessity Statement*: Hypoxic respiratory failure, needing continuous BiPAP, high risk of intubation, worsening DIONISIO, likely to start dialysis, depending on results of pathology may additionally need to start chemo. Coding Level of Care Code Acute Wool Hat Sanding Machine Operator for g Fwd Diagnoses Community acquired pneumonia J18.9 Orthopnea R06.01 Polydipsia R63.1 Hyponatremia E87.1 New onset of congestive heart failure I50.9 Abnormal transaminases R74.8 Sepsis A41.9
--- NOTE | 2020-04-16 13:28 | PC.NURSE ---
0740-DR SANTOS & DR HURST NOTIFIED OF CRITICAL LABS FROM THIS MORNING. WILL CONTINUE TO MONITOR.
--- NOTE | 2020-04-16 14:45 | PM.PN ---
Subjective Subjective: Interval history: Patient's respiratory status got acutely worse as last night. She was transferred to the ICU for further evaluation and management. She was on a BiPAP. The oxygen saturation since improving. She also might have had an element of diastolic heart failure. The respiratory status seems to be fairly stable at this time. Medications: Reviewed: Yes Medication Review Details: Current Medications Acetaminophen (Tylenol) 650 mg PO Q6H PRN PRN Reason: MILD PAIN Last Admin: 04/10/20 08:53 Dose: 650 mg Documented by: Albuterol/Ipratropium (Duoneb) 3 ml INHALATION Q6H PRN PRN Reason: SHORTNESS OF BREATH Last Admin: 04/16/20 08:29 Dose: 3 ml Documented by: Alprazolam (Xanax) 0.25 mg PO Q8H PRN PRN Reason: ANXIETY Last Admin: 04/15/20 01:55 Dose: 0.25 mg Documented by: Amiodarone HCl (Cordarone) 400 mg PO [facility] Last Admin: 04/16/20 09:40 Dose: 400 mg Documented by: Denture Adhesive (Fixodent) 1 applic DENTAL PRN PRN PRN Reason: denture adhesive Last Admin: 04/14/20 13:27 Dose: 1 applic Documented by: Meropenem 1,000 mg/ Sodium (Chloride) 50 mls @ 200 mls/hr IV Q12H [facility] Last Admin: 04/16/20 12:29 Dose: 200 mls/hr Documented by: Amiodarone HCl 900 mg/Dextrose/ IV Miscellaneous Supplies 518 mls @ 0 mls/hr IV .Q0M [facility]; Protocol Last Titration: 04/15/20 11:30 Dose: Infused Documented by: Metoprolol Tartrate (Lopressor) 50 mg PO BID [facility] Last Admin: 04/16/20 09:40 Dose: 50 mg Documented by: Nystatin (Nystatin) 500,000 unit PO QID [facility] Last Admin: 04/16/20 12:37 Dose: Not Given Documented by: Sodium Bicarbonate (Sodium Bicarbonate) 650 mg PO BID [facility] Last Admin: 04/16/20 09:40 Dose: 650 mg Documented by: Vitals/I&O/Wt Last Vital Signs Temp 97.8 F 04/16/20 09:00 Pulse 73 04/16/20 12:35 Resp 14 04/16/20 12:35 BP 113/65 04/16/20 12:35 Pulse Ox 95 04/16/20 12:35 04/15/20 04/16/20 04/16/20 22:59 06:59 14:59 Intake Total 524.267 / 1702.197 50 / 1752.197 50 / 50 Output Total 700 / 700 550 / 1250 Balance -175.733 / 1002.197 -500 / 502.197 50 / 50 Physical Exam Narrative: EXAM NARRATIVE: GENERAL: The patient is alert and oriented times three. Patient is somewhat tachypneic and complaining of difficulty in breathing. Moderately obese. HEENT: Minimal pallor, no icterus or lymphadenopathy. The pupils are reactant to light. Oral cavity: There are no mucous membrane lesions. NECK: Trachea appears to be central. No masses noted. No JVD or thyromegaly appreciated. No carotid bruit. RESPIRATORY: Chest is symmetrical. No intercostals muscle retraction or any accessory muscle activation. There is no chest wall tenderness. Breath sounds are heard bilaterally. Diminished intensity of breath sounds in the both bases. Scattered coarse crackles. BREASTS: Deferred. HEART: The PMI could not be palpated. No palpable precordial events. S1 and S2 are normal. No S3 or S4 heard. No pericardial rub or any click heard. ABDOMEN: No vessel pulsations or distention. No tenderness. No organomegaly appreciated. No abdominal bruit. Bowel sounds are normally heard. : Deferred. RECTAL: Deferred. LYMPHATIC: No lymphadenopathy noted in the neck. EXTREMITIES: 1-2+ edema both lower extremities. No cyanosis. MUSCULOSKELETAL: No acute joint deformities or swelling SKIN: There are no significant scars or skin rash noted. NEUROPSYCHIATRIC: The patient is alert and oriented x3. Tachypneic. The higher functions are grossly within normal limits. No tremors or rigidity noted. Urinary Catheter Management^: Torres: Cath Placed During This Visit: yes Reason for Continuing Indwelling Catheter: Accurate Measurement of Urinary Output in Critically Ill Patients Urinary Catheter Date of Insertion: 04/15/20 Urinary Catheter Time of Insertion: 15:20 Data : 04/16/20 03:25 04/16/20 03:25 A&P Assessment and plan (1) New onset atrial fibrillation: Patient currently is in sinus rhythm. She is on p.o. amiodarone. The vital signs are stable. May continue on the current medications Status: Acute (2) Acute diastolic heart failure: Seems to have the patient has intermittent decompensated heart failure. Her respiratory distress could be contributing factor. Status: Acute (3) Pleural effusion: Possibly from the metastatic lesions. Patient apparently has extensive lesions including the pleura. Has moderate effusion on the right side, based on the chest x-ray Status: Acute (4) Metastatic cancer: Possible primary from the lung. Studies are still pending. Management decisions as per the oncology service Status: Acute Qualifiers: Area of secondary neoplastic involvement: lymph node Lymph node location: intrathoracic region Qualified Code(s): C77.1 - Secondary and unspecified malignant neoplasm of intrathoracic lymph nodes (5) Obstructive pneumonia: Patient is on multiple antibiotics. Clinically seems to be improving. The white cell count is going up. Status: Acute (6) Acute kidney injury: Patient is being followed by the nephrology service. The kidney function is getting worse . Planning to have the hemodialysis today Status: Acute Additional A&P Information The hemodialysis may improve the diastolic heart failure. 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
[2020-04-16] MEDS: heparin 5,000 unit/mL INJ 1 mL 5000 UNIT SUBCUT (17:29)
--- NOTE | 2020-04-16 17:34 | XRR_ITS ---
PROCEDURE INFORMATION: Exam: XR Chest, 1 View Exam date and time: 04/16/2020 6:19 PM Age: 64 years old Clinical indication: Device placement; Other: Hd catheter; Patient HX: Catheter placement; Additional info: Confirm catheter placement TECHNIQUE: Imaging protocol: XR of the chest Views: 1 view. COMPARISON: CR XR chest 1V portable [id number] 04/16/2020 11:24 AM FINDINGS: Tubes, catheters and devices: A PICC line on the right side extending to the SVC this finding is stable since prior A right central line is present extending into the right atrium. Lungs: Patchy parenchymal densities are present in the left lower lobe suspicious for pneumonia. There is interstitial congestion in the right lower lobe. Pleural space: Right lower lobe pleural effusion. No pneumothorax. Heart/Mediastinum: Unremarkable. No cardiomegaly. Bones/joints: Unremarkable. XR/XR chest 1V portable [id number] IMPRESSION: 1. Parenchymal densities left lower lobe suspicious for pneumonia. 2. A PICC line is present on the right side in good position. 3. A central line is seen on the right side extending into the right atrium 4. Interstitial congestion right lower lobe 5. Right lower lobe pleural effusion
[2020-04-16] MEDS: heparin 5,000 unit/mL INJ 1 mL 5000 UNIT IVP ×3 (17:51→17:53)
--- NOTE | 2020-04-16 17:54 | PM.ACPR ---
Procedure/Consent Time out: Time Out Performed: Yes Consent: Consent for Procedure: Consent obtained from other (indicate) Additional Consent Information: Granddaughter Procedure Narrative: Name of the procedure: Right internal jugular hemodialysis catheter insertion under ultrasound guidance. Medications: Lidocaine 1% 5 mL. IV medications: None Consent: Obtained from her granddaughter Description of the procedure: The right IJ was identified under ultrasound guidance with collapsibility and lack of pulsatility. The site was prepared using sterile technique and the patient was positioned optimally. The skin, subcutaneous tissue was anesthetized with 1% lidocaine. The introducer needle was then advanced under direct ultrasound guidance to flashback was noted. Dark nonpulsatile blood was noted. The guidewire was advanced through the needle and confirmed to be in the internal jugular vein with ultrasound. Using Seldinger technique the right internal jugular hemodialysis catheter was inserted. The catheter was sutured in place. The insertion length was 18 cm. Complications: None Blood loss: 1 mL Chest x-ray: Pending Acute Procedures Epistaxis Control: Time out performed: Yes
--- NOTE | 2020-04-16 17:57 | PC.NURSE ---
three vials of 5,000 unit heparin given by per HD catheters r/t new placement to prevent blood clotting. Dr. Webster made aware - request to hold subQ heparin for 12 hours.
[2020-04-16] MEDS: piperacillin-tazobactam 3.375 GM in sodium chloride 0.9% (plus) 50 ML IV (18:03)
--- NOTE | 2020-04-16 19:25 | PC.NURSE ---
DIALYSIS NURSE HERE. GRANDDAUGHTER GAVE TELEPHONE CONSENT FOR HD PLACEMENT/DIALYSIS EARLIER.
[2020-04-17] VITALS (94 sets, daily range): BP systolic 105–144; BP diastolic 55–82; PULSE 66–93; RESP 13–26; TEMP 36.7–37.1; O2SAT 86–100
--- NOTE | 2020-04-17 02:22 | PC.PHAR ---
Patient's creatinine clearance has decreased from 221.93 on 04/08/20 to 13.32 on 04/16/20. Patient i on dialysis. Zosyn dosage is adjusted from 3.375mg IVPB every 12 hours to 2.25gm IVPB every 8 hours, dose to be administered after dialysis on dialysis days, per protocol.
[2020-04-17] MEDS: piperacillin-tazobactam 2.25 GM in sodium chloride 0.9% (plus) 50 ML IV ×3 (03:39→17:49)
[2020-04-17] MEDS: heparin 5,000 unit/mL INJ 1 mL 5000 UNIT SUBCUT ×2 (04:06→17:46)
[2020-04-17] MEDS: ipratropium-albuterol 3 mL Neb INHALATION ×3 (07:47→21:12)
[2020-04-17] MEDS: sodium bicarbonate 650 mg Tablet PO ×2 (10:09→17:46)
[2020-04-17] MEDS: amiodarone 200 mg Tablet 400 MG PO ×2 (10:09→20:24)
[2020-04-17] MEDS: metoprolol tartrate 50 mg Tablet PO ×2 (10:10→17:46)
[2020-04-17] MEDS: nystatin 100,000 unit/mL UDC 5 mL 500000 UNIT PO ×4 (10:10→20:24)
--- NOTE | 2020-04-17 12:19 | P.PN_ITS ---
Subjective Subjective: Interval history: Breathing more comfortably last night after dialysis and now off BIPAP. Passing urine to the tune of 850mL. No uremic sx. No specific pain Still coughing, no hemoptysis Medications: Reviewed: Yes Medication Review Details: Current Medications Acetaminophen (Tylenol) 650 mg PO Q6H PRN PRN Reason: MILD PAIN Last Admin: 04/10/20 08:53 Dose: 650 mg Documented by: Albuterol/Ipratropium (Duoneb) 3 ml INHALATION Q6H PRN PRN Reason: SHORTNESS OF BREATH Last Admin: 04/16/20 08:29 Dose: 3 ml Documented by: Alprazolam (Xanax) 0.25 mg PO Q8H PRN PRN Reason: ANXIETY Last Admin: 04/15/20 01:55 Dose: 0.25 mg Documented by: Amiodarone HCl (Cordarone) 400 mg PO [facility] Last Admin: 04/16/20 09:40 Dose: 400 mg Documented by: Denture Adhesive (Fixodent) 1 applic DENTAL PRN PRN PRN Reason: denture adhesive Last Admin: 04/14/20 13:27 Dose: 1 applic Documented by: Meropenem 1,000 mg/ Sodium (Chloride) 50 mls @ 200 mls/hr IV Q12H [facility] Last Admin: 04/16/20 12:29 Dose: 200 mls/hr Documented by: Amiodarone HCl 900 mg/Dextrose/ IV Miscellaneous Supplies 518 mls @ 0 mls/hr IV .Q0M [facility]; Protocol Last Titration: 04/15/20 11:30 Dose: Infused Documented by: Metoprolol Tartrate (Lopressor) 50 mg PO BID [facility] Last Admin: 04/16/20 09:40 Dose: 50 mg Documented by: Nystatin (Nystatin) 500,000 unit PO QID [facility] Last Admin: 04/16/20 12:37 Dose: Not Given Documented by: Sodium Bicarbonate (Sodium Bicarbonate) 650 mg PO BID [facility] Last Admin: 04/16/20 09:40 Dose: 650 mg Documented by: Vitals/I&O/Wt Last Vital Signs Temp 98.3 F 04/17/20 05:43 Pulse 79 04/17/20 07:51 Resp 20 H 04/17/20 07:47 BP 114/59 04/17/20 05:43 Pulse Ox 93 04/17/20 07:50 04/16/20 04/17/20 04/17/20 22:59 06:59 14:59 Intake Total 250 / 300 100 / 400 50 / 50 Output Total 720 / 870 125 / 995 Balance -470 / -570 -25 / -595 50 50 Physical Exam Narrative: EXAM NARRATIVE: Constitutional: Awake, conversant, looks tired HEENT: Wet mucosa, no jvp, non icteric Lungs: Bilaterally clear without discernible wheeze or rales in all lung zones CVS: irregular Abdo: Soft, BS ok Ext 4: 1+ edema, peripheral perfusion with no cyanosis Neurological: Grossly non-focal Urinary Catheter Management^: Torres: Cath Placed During This Visit: yes Reason for Continuing Indwelling Catheter: Accurate Measurement of Urinary Output in Critically Ill Patients Urinary Catheter Date of Insertion: 04/15/20 Urinary Catheter Time of Insertion: 15:20 Data : 04/16/20 03:25 04/16/20 03:25 A&P Additional A&P Information 1. DIONISIO - Progressive ATN in the setting of contrast and Vanco tubular toxicity - Case d/w Dr Nguyen and Dr Webster. - Small cell found on pathology and hence there are chemo options for her; with this in mind will continue dialysis for the time being - plan to do dialysis tomorrow, between 12 and 24hrs after chemo exposure - no labs today, will book for the am - avoid the usuals - redose Lasix today - avoid the usuals 2. HypoNa - SIADH and high water consumption on admission - consistent with small cell Ca - sodium levels remain stable 3. New diagnosis of Small Cell lung cancer - Etoposide and Cisplatin, first dose today 4. Post obstructive pneumonia - Merrem and Doxy on board - cultures so far unrevealing - may need pleurex drain 5. Afib - developed Wednesday; amiodarone infusion and Digoxin - converted to SR 6. Acidosis - on sodium bicarb tabs 7. Hyperphos - no specific therapy; decrease oral intake, once eating a full diet may need binders. 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
[2020-04-17 12:36] LABS: Hepatitis B Surface Antigen Non-Reactive (Nonreactive)
[2020-04-17] MEDS: FUROsemide 10 mg/mL SDV 10mL 80 MG IVP (13:57)
--- NOTE | 2020-04-17 16:10 | P.PN_ITS ---
Subjective Subjective: Interval history: Patient underwent dialysis last evening. Her breathing appears to be improving since that time. She is on high flow nasal cannula at 8.5 L/min. Started chemotherapy today with etoposide and carboplatin. 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 ext: Pitting edema bilateral lower extremity Urinary Catheter Management^: Torres: Cath Placed During This Visit: yes Reason for Continuing Indwelling Catheter: Accurate Measurement of Urinary Output in Critically Ill Patients Urinary Catheter Date of Insertion: 04/15/20 Urinary Catheter Time of Insertion: 15:20 Data : 04/16/20 03:25 04/16/20 03:25 A&P Assessment and plan (1) Community acquired pneumonia: Status: Acute (2) Orthopnea: Status: Acute (3) Polydipsia: Status: Acute (4) Hyponatremia: Status: Acute (5) New onset of congestive heart failure: Status: Acute (6) Abnormal transaminases: Status: Acute (7) Sepsis: Status: Acute Additional A&P Information # Metastatic small cell lung cancer Pathology now returned with small cell lung cancer. She has been started on chemotherapy with carboplatin and etoposide. Plan is to undergo dialysis 24 hours after chemotherapy. Chemotherapy to continue over the next 3 days. # Hypoxic respiratory failure, multifactorial related to likely lung malignancy, B/L pleural effusions, increasing as of most recent CXR, increasing pulmonary vascular congestion and pulmonary edema, post obstructive pneumonia. Creatinine at 5. Started HD last evening. Torres to monitor I/O, daily weight Appreciate pulmonary and renal recommendations Holding off on thoracentesis for now pending response to dialysis Patient was able to be weaned off of BiPAP and currently on high flow nasal cannula. Fluid gram stain and cx negative to date from thoracentesis # Hyponatremia. 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 Possibly it is secondary to lung disease and malignancy. Appreciate nephrology recommendations # Acute kidney injury. Continues to worsen with Cr up to 5 now. clinically signs of volume overload + . montior I/O, daily weight, patient agreeable for HD if needed # New onset atrial fibrillation with RVR. Heart rate is better controlled today. # Presumed PE, unable to get a V/Q scan due to inability to lie flat. Discussed with Dr. Jordan, findings appear c/w compression from external lung mass rather than PE, heparin drip discontinued. Switch to ppx a/c DVT prophylaxis: Heparin The plan of care was discussed with the patient and her granddaughter kamran. Attestations Medical Necessity Statement*: Started chemotherapy, hypoxic respiratory failure needing optimization, ongoing need for hemodialysis. Coding Level of Care Code Acute Urologic Nurse for [facility] Fwd Diagnoses Community acquired pneumonia J18.9 Orthopnea R06.01 Polydipsia R63.1 Hyponatremia E87.1 New onset of congestive heart failure I50.9 Abnormal transaminases R74.8 Sepsis A41.9
--- NOTE | 2020-04-17 19:08 | PC.NURSE ---
Shift summary: Pat able to tolerated high flow nasal cannula most of the day at 8lpm. Went back on BiPap after chemo finished. She stated she was so tired. She has just picked at her meals. Furosemide 80mg given with minimal effect on urine output an additional 300ml out after administration. She has been up to BSC , BM noted today. She has pitting edema bilat legs, slight mottling noted on legs. She is to receivd chemo again tomorrow then hemodialysis afterwards.
--- NOTE | 2020-04-17 20:01 | PM.PN ---
Subjective Subjective: Interval history: She has a hemodialysis yesterday. She is currently on a BiPAP. Telemetry shows sinus rhythm. No fever or chills. Medications: Reviewed: Yes Medication Review Details: Current Medications Acetaminophen (Tylenol) 650 mg PO Q6H PRN PRN Reason: MILD PAIN Last Admin: 04/10/20 08:53 Dose: 650 mg Documented by: Albuterol/Ipratropium (Duoneb) 3 ml INHALATION Q6H PRN PRN Reason: SHORTNESS OF BREATH Last Admin: 04/17/20 14:12 Dose: 3 ml Documented by: Amiodarone HCl (Cordarone) 400 mg PO [facility] Last Admin: 04/17/20 10:09 Dose: 400 mg Documented by: Denture Adhesive (Fixodent) 1 applic DENTAL PRN PRN PRN Reason: denture adhesive Last Admin: 04/14/20 13:27 Dose: 1 applic Documented by: Heparin Sodium (Beef Lung) (Heparin) 5,000 unit SUBCUT Q12H [facility] Last Admin: 04/17/20 17:46 Dose: 5,000 unit Documented by: Amiodarone HCl 900 mg/Dextrose/ IV Miscellaneous Supplies 518 mls @ 0 mls/hr IV .Q0M [facility]; Protocol Last Titration: 04/15/20 11:30 Dose: Infused Documented by: Piperacillin Sod/Tazobactam (Sod 2.25 gm/ Sodium Chloride) 50 mls @ 12.5 mls/hr IV Q8H [facility] Last Admin: 04/17/20 17:49 Dose: 12.5 mls/hr Documented by: Metoprolol Tartrate (Lopressor) 50 mg PO BID [facility] Last Admin: 04/17/20 17:46 Dose: 50 mg Documented by: Nystatin (Nystatin) 500,000 unit PO QID [facility] Last Admin: 04/17/20 17:46 Dose: 500,000 unit Documented by: Sodium Bicarbonate (Sodium Bicarbonate) 650 mg PO BID [facility] Last Admin: 04/17/20 17:46 Dose: 650 mg Documented by: Vitals/I&O/Wt Last Vital Signs Temp 98.5 F 04/17/20 14:00 Pulse 66 04/17/20 19:00 Resp 17 04/17/20 19:00 BP 115/72 04/17/20 19:00 Pulse Ox 97 04/17/20 19:00 04/17/20 04/17/20 04/17/20 06:59 14:59 22:59 Intake Total 100 / 400 1017.5 / 1017.5 655.05 / 1672.55 Output Total 125 / 995 220 / 220 230 / 450 Balance -25 / -595 797.5 / 797.5 425.05 / 1222.55 Physical Exam Narrative: EXAM NARRATIVE: GENERAL: Patient is alert and is on a BiPAP HEENT: Minimal pallor, no icterus or lymphadenopathy. NECK: Trachea appears to be central. No masses noted. No JVD or thyromegaly appreciated. No carotid bruit. RESPIRATORY: Chest is symmetrical. No intercostals muscle retraction or any accessory muscle activation. There is no chest wall tenderness. Breath sounds are heard bilaterally. Diminished intensity of breath sounds in the both bases. Scattered coarse crackles. BREASTS: Deferred. HEART: The PMI could not be palpated. No palpable precordial events. S1 and S2 are normal. No S3 or S4 heard. No pericardial rub or any click heard. ABDOMEN: No vessel pulsations or distention. No tenderness. No organomegaly appreciated. No abdominal bruit. Bowel sounds are normally heard. : Deferred. RECTAL: Deferred. LYMPHATIC: No lymphadenopathy noted in the neck. EXTREMITIES: 1-2+ edema both lower extremities. No cyanosis. MUSCULOSKELETAL: No acute joint deformities or swelling SKIN: There are no significant scars or skin rash noted. NEUROPSYCHIATRIC: No obvious neurological deficits. Urinary Catheter Management^: Torres: Cath Placed During This Visit: yes Reason for Continuing Indwelling Catheter: Accurate Measurement of Urinary Output in Critically Ill Patients Urinary Catheter Date of Insertion: 04/15/20 Urinary Catheter Time of Insertion: 15:20 Data : 04/16/20 03:25 04/16/20 03:25 A&P Assessment and plan (1) New onset atrial fibrillation: Patient currently is in sinus rhythm. May continue on the current medications Status: Acute (2) Acute diastolic heart failure: Heart failure is compensated. Management of fluid status, as per nephrology Status: Acute (3) Pleural effusion: Possibly from the metastatic lesions. Patient apparently has extensive lesions including the pleura. Has moderate effusion on the right side, based on the chest x-ray Status: Acute (4) Metastatic cancer: Patient had the first chemo today. 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 Clinically seems to be improving. The white cell count is going up. Status: Acute (6) Acute kidney injury: Dialysis as per the nephrology Status: Acute Additional A&P Information Other problems are as outlined before. 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
[2020-04-17] MEDS: acetaminophen 325 mg Tablet 650 MG PO (20:24)
[2020-04-18] VITALS (26 sets, daily range): BP systolic 92–153; BP diastolic 54–91; PULSE 61–85; RESP 14–28; TEMP 36.5–36.8; O2SAT 90–98
[2020-04-18] MEDS: ipratropium-albuterol 3 mL Neb INHALATION ×4 (00:58→20:42)
[2020-04-18] MEDS: piperacillin-tazobactam 2.25 GM in sodium chloride 0.9% (plus) 50 ML IV ×2 (01:42→16:42)
[2020-04-18] MEDS: heparin 5,000 unit/mL INJ 1 mL 5000 UNIT SUBCUT ×2 (04:10→17:58)
[2020-04-18 08:06] LABS: Basophils % 0.2 %; Hematocrit 33.8 % (37.0-47.0); Lymphocytes # 0.5 10^3/uL (0.8-4.8); Lymphocytes % 2.3 %; Mean Corpuscular HGB Conc 32.5 g/dL (30.0-36.0); Mean Corpuscular Hemoglobin 31.1 pg (28.0-34.0); Mean Corpuscular Volume 95.5 fL (81-99); Mean Platelet Volume 10.3 fL (7.4-10.4); Monocytes # 1.4 10^3/uL (0.2-0.9); Monocytes % 6.1 %; Neutrophils # 19.69 10^3/uL (1.8-7.7); Nucleated Red Blood Cells % 0 %; Platelet Count 289 10^3/cmm (130-400); Red Blood Count 3.54 10^6/uL (4.1-5.3); Red Cell Distribution Width 12.9 % (12.1-15.1); White Blood Count 22.1 10^3/uL (4.0-10.0)
[2020-04-18 08:29] LABS: Alanine Aminotransferase 33 U/L (0-33); Albumin Level 2.8 g/dL (3.5-5.2); Alkaline Phosphatase 248 IU/L (35-105); Anion Gap 20.2 (5-19); Aspartate Amino Transferase 39 U/L (0-32); Calcium 9.7 mg/dL (8.5-10.5); Carbon Dioxide 22 mmol/L (22-29); Chloride 97 mmol/L (98-107); Globulin 2.9 g/dL (1.3-4.6); Glomerular Filtration Rate 8.8 mL/min (90-130); Glucose 143 mg/dL (65-115); Magnesium 2.6 mg/dL (1.7-2.3); Osmolality Calculated 310 mOsm/kg (285-295); Potassium 4.2 mmol/L (3.5-5.1); Sodium 135 mmol/L (136-145); Total Bilirubin 0.3 mg/dL (0.15-1.2); Total Protein 5.7 g/dL (6.6-8.7)
[2020-04-18] MEDS: acetaminophen 325 mg Tablet 650 MG PO (08:48)
[2020-04-18] MEDS: amiodarone 200 mg Tablet 400 MG PO ×2 (08:51→19:38)
[2020-04-18] MEDS: nystatin 100,000 unit/mL UDC 5 mL 500000 UNIT PO ×3 (08:51→19:38)
[2020-04-18] MEDS: metoprolol tartrate 50 mg Tablet PO ×2 (08:51→17:57)
[2020-04-18] MEDS: sodium bicarbonate 650 mg Tablet PO (08:51)
[2020-04-18 09:24] LABS: Blood Urea Nitrogen 89 mg/dL (8-23)
[2020-04-18 09:25] LABS: Phosphorus 7.8 mg/dL (2.5-4.5)
[2020-04-18] MEDS: sodium chloride 0.9% 250 ML 75 ML IV (10:26)
--- NOTE | 2020-04-18 11:08 | P.PN_ITS ---
Subjective Subjective: Interval history: overnight on bipap, now on hfnc, undergoing chemo, no acute events Medications: Reviewed: Yes Medication Review Details: Current Medications Acetaminophen (Tylenol) 650 mg PO Q6H PRN PRN Reason: MILD PAIN Last Admin: 04/18/20 08:48 Dose: 650 mg Documented by: Hydrocodone Bitart/Acetaminophen ([place] 10-325 Mg) 1 tab PO Q4H PRN PRN Reason: MODERATE PAIN Albuterol/Ipratropium (Duoneb) 3 ml INHALATION Q6H PRN PRN Reason: SHORTNESS OF BREATH Last Admin: 04/18/20 15:11 Dose: 3 ml Documented by: Amiodarone HCl (Cordarone) 400 mg PO ON LICENSE OF [facility] Last Admin: 04/18/20 08:51 Dose: 400 mg Documented by: Denture Adhesive (Fixodent) 1 applic DENTAL PRN PRN PRN Reason: denture adhesive Last Admin: 04/14/20 13:27 Dose: 1 applic Documented by: Heparin Sodium (Beef Lung) (Heparin) 5,000 unit SUBCUT Q12H ON LICENSE OF [facility] Last Admin: 04/18/20 17:58 Dose: 5,000 unit Documented by: Piperacillin Sod/Tazobactam (Sod 2.25 gm/ Sodium Chloride) 50 mls @ 12.5 mls/hr IV Q8H ON LICENSE OF [facility] Last Admin: 04/18/20 16:42 Dose: 12.5 mls/hr Documented by: Metoprolol Tartrate (Lopressor) 50 mg PO BID ON LICENSE OF [facility] Last Admin: 04/18/20 17:57 Dose: 50 mg Documented by: Morphine Sulfate (Morphine) 2 mg IVP Q4H PRN PRN Reason: SEVERE PAIN Last Admin: 04/18/20 13:07 Dose: 2 mg Documented by: Nystatin (Nystatin) 500,000 unit PO QID ON LICENSE OF [facility] Last Admin: 04/18/20 17:57 Dose: 500,000 unit Documented by: Vitals/I&O/Wt Last Vital Signs Temp 98.1 F 04/18/20 05:26 Pulse 78 04/18/20 09:13 Resp 18 04/18/20 09:09 BP 131/79 04/18/20 08:00 Pulse Ox 92 04/18/20 09:09 04/17/20 04/18/20 04/18/20 22:59 06:59 14:59 Intake Total 855.05 / 1872.55 275 / 2147.55 Output Total 230 / 450 275 / 725 Balance 625.05 / 1422.55 0 / 1422.55 Weight last 48 hrs Weight 106.685 kg Physical Exam Narrative: EXAM NARRATIVE: GEN: Awake, alert and oriented, no acute distress CVS: S1S2 N RS: CTA B/L Abd: Soft, nt/nd , bs+ 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: no focal neuro deficits ext: Pitting edema bilateral lower extremity Urinary Catheter Management^: Torres: Cath Placed During This Visit: yes Reason for Continuing Indwelling Catheter: Accurate Measurement of Urinary Output in Critically Ill Patients Urinary Catheter Date of Insertion: 04/15/20 Urinary Catheter Time of Insertion: 15:20 Data : 04/18/20 08:00 04/18/20 08:00 A&P Assessment and plan (1) Community acquired pneumonia: Status: Acute (2) Orthopnea: Status: Acute (3) Polydipsia: Status: Acute (4) Hyponatremia: Status: Acute (5) New onset of congestive heart failure: Status: Acute (6) Abnormal transaminases: Status: Acute (7) Sepsis: Status: Acute Additional A&P Information # Metastatic small cell lung cancer Pathology now returned with small cell lung cancer. She has been started on chemotherapy with carboplatin and etoposide. Plan is to undergo dialysis 24 hours after chemotherapy. Chemotherapy to continue over the next 3 days. # Hypoxic respiratory failure, multifactorial related to likely lung malignancy, B/L pleural effusions, increasing as of most recent CXR, increasing pulmonary vascular congestion and pulmonary edema, post obstructive pneumonia. Creatinine at 5. Started HD last evening. Torres to monitor I/O, daily weight Appreciate pulmonary and renal recommendations Holding off on thoracentesis for now pending response to dialysis Patient was able to be weaned off of BiPAP and currently on high flow nasal cannula. Fluid gram stain and cx negative to date from thoracentesis # Hyponatremia. 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 Possibly it is secondary to lung disease and malignancy. Appreciate nephrology recommendations # Acute kidney injury. Continues to worsen with Cr up to 5 now. clinically signs of volume overload + . montior I/O, daily weight, patient agreeable for HD if needed # New onset atrial fibrillation with RVR. Heart rate is better controlled today. # Presumed PE, unable to get a V/Q scan due to inability to lie flat. Discussed with Dr. Jordan, findings appear c/w compression from external lung mass rather than PE, heparin drip discontinued. Switch to ppx a/c DVT prophylaxis: Heparin Attestations Medical Necessity Statement*: chemotherapy, dialysis, resp failure Coding Level of Care Code Acute Upholsterer Inside for g Fwd Diagnoses Community acquired pneumonia J18.9 Orthopnea R06.01 Polydipsia R63.1 Hyponatremia E87.1 New onset of congestive heart failure I50.9 Abnormal transaminases R74.8 Sepsis A41.9
--- NOTE | 2020-04-18 12:15 | PC.NURSE ---
Dialysis nurse here.
[2020-04-18] MEDS: morphine 4 mg/mL SDV 1 mL 2 MG IVP (13:07)
--- NOTE | 2020-04-18 13:13 | PC.NURSE ---
Zosyn antibiotic rescheduled for 1629, approx time dialysis will be finished.
--- NOTE | 2020-04-18 14:50 | PM.PN ---
Subjective Subjective: Interval history: seen and examined during dialysis, no new complaints, remains on 40% BiPAP Medications: Reviewed: Yes Vitals/I&O/Wt Last Vital Signs Temp 98.1 F 04/18/20 05:26 Pulse 64 04/18/20 13:37 Resp 22 H 04/18/20 13:07 BP 131/79 04/18/20 08:00 Pulse Ox 97 04/18/20 13:37 04/17/20 04/18/20 04/18/20 22:59 06:59 14:59 Intake Total 855.05 / 1872.55 275 / 2147.55 120 / 120 Output Total 230 / 450 275 / 725 Balance 625.05 / 1422.55 0 / 1422.55 120 / 120 Weight last 48 hrs Weight 106.685 kg Physical Exam Const: COMMON NORMALS: alert GENERAL APPEARANCE: cooperative Neck/C-Spine: CAROTIDS: Yes other (right IJ dialysis catheter) Resp: AUSCULTATION: rhonchi Cardio: RHYTHM: abnormal rhythm Extremity: GENERAL: Yes edema (pedal, left > right) Neuro: SENSORIUM/ORIENTATION: Yes alert Urinary Catheter Management^: Torres: Cath Placed During This Visit: yes Reason for Continuing Indwelling Catheter: Accurate Measurement of Urinary Output in Critically Ill Patients Urinary Catheter Date of Insertion: 04/15/20 Urinary Catheter Time of Insertion: 15:20 Data : 04/18/20 08:00 04/18/20 08:00 Other Labs: phos 7.8, albumin 2.8, calcium 9.7 A&P Additional A&P Information 1. Acute kidney injury, oliguric, receiving second dialysis treatment today with goal UF 2.5 liters. Next planned dialysis 04/20/2020 2. Hyponatremia, improved 3. Metastatkic Small Cell lung cancer, received Etoposide and Cisplatin 4. Post obstructive pneumonia 5. Acidosis, resolved, discontinue sodium bicarb tabs Attestations Medical Necessity Statement*: critically ill Coding Level of Care Code Acute Supplier Relationship Director for [employer] Pratt
--- NOTE | 2020-04-18 18:59 | PC.NURSE ---
Shift summary: Pt remains tired today. Poor appetite. Dr Webster said it was ok for her to eat whatever she wanted. She had cnemo therapy at bedside today She had dialysis today,2500 ml out. Urine output minimal at 250ml. Left upper arm PICC and left groin central line patent with blood return. Pt incontnent of BM today, she now has diarrhea. SHe is to get dialysis Wednesday. Report given to KATINA Pizarro
[2020-04-18] MEDS: HYDROcodone-acetaminophen 10-325 mg Tablet 1 TAB PO (19:30)
--- NOTE | 2020-04-18 19:37 | PM.PN ---
Subjective Subjective: Interval history: Patient is feeling okay. Her breathing is better. Denies any fever or chills. No cough. Telemetry shows sinus rhythm. Vitals are stable. Medications: Reviewed: Yes Medication Review Details: Current Medications Acetaminophen (Tylenol) 650 mg PO Q6H PRN PRN Reason: MILD PAIN Last Admin: 04/18/20 08:48 Dose: 650 mg Documented by: Hydrocodone Bitart/Acetaminophen ([place] 10-325 Mg) 1 tab PO Q4H PRN PRN Reason: MODERATE PAIN Albuterol/Ipratropium (Duoneb) 3 ml INHALATION Q6H PRN PRN Reason: SHORTNESS OF BREATH Last Admin: 04/18/20 15:11 Dose: 3 ml Documented by: Amiodarone HCl (Cordarone) 400 mg PO [facility] Last Admin: 04/18/20 08:51 Dose: 400 mg Documented by: Denture Adhesive (Fixodent) 1 applic DENTAL PRN PRN PRN Reason: denture adhesive Last Admin: 04/14/20 13:27 Dose: 1 applic Documented by: Heparin Sodium (Beef Lung) (Heparin) 5,000 unit SUBCUT Q12H [facility] Last Admin: 04/18/20 17:58 Dose: 5,000 unit Documented by: Piperacillin Sod/Tazobactam (Sod 2.25 gm/ Sodium Chloride) 50 mls @ 12.5 mls/hr IV Q8H [facility] Last Admin: 04/18/20 16:42 Dose: 12.5 mls/hr Documented by: Metoprolol Tartrate (Lopressor) 50 mg PO BID [facility] Last Admin: 04/18/20 17:57 Dose: 50 mg Documented by: Morphine Sulfate (Morphine) 2 mg IVP Q4H PRN PRN Reason: SEVERE PAIN Last Admin: 04/18/20 13:07 Dose: 2 mg Documented by: Nystatin (Nystatin) 500,000 unit PO QID [facility] Last Admin: 04/18/20 17:57 Dose: 500,000 unit Documented by: Vitals/I&O/Wt Last Vital Signs Temp 97.7 F 04/18/20 18:00 Pulse 80 04/18/20 18:00 Resp 26 H 04/18/20 18:00 BP 135/89 04/18/20 18:00 Pulse Ox 95 04/18/20 18:00 04/18/20 04/18/20 04/18/20 06:59 14:59 22:59 Intake Total 275 / 2147.55 320 / 320 150 / 470 Output Total 275 / 725 250 / 250 Balance 0 / 1422.55 320 / 320 -100 / 220 Weight last 48 hrs Weight 235 lb 3.2 oz Physical Exam Narrative: EXAM NARRATIVE: GENERAL: Patient is alert and is on a BiPAP HEENT: Minimal pallor, no icterus or lymphadenopathy. NECK: Trachea appears to be central. No masses noted. No JVD or thyromegaly appreciated. No carotid bruit. RESPIRATORY: Chest is symmetrical. No intercostals muscle retraction or any accessory muscle activation. There is no chest wall tenderness. Breath sounds are heard bilaterally. Diminished intensity of breath sounds in the both bases. Scattered coarse crackles. BREASTS: Deferred. HEART: The PMI could not be palpated. No palpable precordial events. S1 and S2 are normal. No S3 or S4 heard. No pericardial rub or any click heard. ABDOMEN: No vessel pulsations or distention. No tenderness. No organomegaly appreciated. No abdominal bruit. Bowel sounds are normally heard. : Deferred. RECTAL: Deferred. LYMPHATIC: No lymphadenopathy noted in the neck. EXTREMITIES: 1-2+ edema both lower extremities. No cyanosis. MUSCULOSKELETAL: No acute joint deformities or swelling SKIN: There are no significant scars or skin rash noted. NEUROPSYCHIATRIC: No obvious neurological deficits. Urinary Catheter Management^: Torres: Cath Placed During This Visit: yes Reason for Continuing Indwelling Catheter: Accurate Measurement of Urinary Output in Critically Ill Patients Urinary Catheter Date of Insertion: 04/15/20 Urinary Catheter Time of Insertion: 15:20 Data : 04/19/20 04:40 04/19/20 04:40 A&P Assessment and plan (1) New onset atrial fibrillation: Patient currently is in sinus rhythm. May continue on the current medications Status: Acute (2) Acute diastolic heart failure: Heart failure is compensated. Management of fluid status, as per nephrology Status: Acute (3) Pleural effusion: Possibly from the metastatic lesions. Patient apparently has extensive lesions including the pleura. Has moderate effusion on the right side, based on the chest x-ray Status: Acute (4) Metastatic cancer: Patient had the first chemo today. 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 Clinically seems to be improving. Status: Acute (6) Acute kidney injury: Dialysis as per the nephrology Status: Acute Additional A&P Information Other problems are as outlined before. Attestations Medical Necessity Statement*: Patient requires continued hospital stay for close monitoring and further management Coding Level of Care Code Acute Health Insurance Specialist for [facility] Fwd Diagnoses New onset atrial fibrillation I48.91 Acute diastolic heart failure I50.31 Pleural effusion J90 Metastatic cancer C77.1 Area of secondary neoplastic involvement: lymph node Lymph node location: intrathoracic region Obstructive pneumonia J18.9 Acute kidney injury N17.9
[2020-04-19] VITALS (20 sets, daily range): BP systolic 106–137; BP diastolic 58–84; PULSE 63–82; RESP 13–28; TEMP 36.5–37; O2SAT 86–100
[2020-04-19] MEDS: morphine 4 mg/mL SDV 1 mL 2 MG IVP ×3 (00:59→23:53)
[2020-04-19] MEDS: piperacillin-tazobactam 2.25 GM in sodium chloride 0.9% (plus) 50 ML IV ×4 (01:01→23:56)
[2020-04-19] MEDS: ipratropium-albuterol 3 mL Neb INHALATION ×3 (02:10→19:56)
[2020-04-19 05:14] LABS: Basophils % 0.1 %; Hematocrit 33.2 % (37.0-47.0); Hemoglobin 10.9 g/dL (11.5-15.3); Lymphocytes # 0.7 10^3/uL (0.8-4.8); Lymphocytes % 3.3 %; Mean Corpuscular HGB Conc 32.8 g/dL (30.0-36.0); Mean Corpuscular Hemoglobin 31.6 pg (28.0-34.0); Mean Corpuscular Volume 96.2 fL (81-99); Mean Platelet Volume 10.6 fL (7.4-10.4); Monocytes # 0.8 10^3/uL (0.2-0.9); Monocytes % 3.6 %; Neutrophils # 19.01 10^3/uL (1.8-7.7); Neutrophils % 91.9 %; Nucleated Red Blood Cells % 0 %; Platelet Count 274 10^3/cmm (130-400); Red Blood Count 3.45 10^6/uL (4.1-5.3); White Blood Count 20.7 10^3/uL (4.0-10.0)
[2020-04-19] MEDS: heparin 5,000 unit/mL INJ 1 mL 5000 UNIT SUBCUT ×2 (05:46→17:02)
[2020-04-19 05:59] LABS: Alanine Aminotransferase 29 U/L (0-33); Alkaline Phosphatase 249 IU/L (35-105); Anion Gap 20.1 (5-19); Aspartate Amino Transferase 35 U/L (0-32); Blood Urea Nitrogen 61 mg/dL (8-23); Calcium 9.2 mg/dL (8.5-10.5); Carbon Dioxide 25 mmol/L (22-29); Chloride 96 mmol/L (98-107); Globulin 2.5 g/dL (1.3-4.6); Glomerular Filtration Rate 15.2 mL/min (90-130); Glucose 113 mg/dL (65-115); Magnesium 2.3 mg/dL (1.7-2.3); Osmolality Calculated 302 mOsm/kg (285-295); Potassium 4.1 mmol/L (3.5-5.1); Sodium 137 mmol/L (136-145); Total Bilirubin 0.4 mg/dL (0.15-1.2); Total Protein 5.5 g/dL (6.6-8.7)
[2020-04-19 06:11] LABS: Phosphorus 7.8 mg/dL (2.5-4.5)
--- NOTE | 2020-04-19 08:10 | PC.NURSE ---
requesting to sleep for awhile, before she eats. drank an ensure earlier.
[2020-04-19] MEDS: nystatin 100,000 unit/mL UDC 5 mL 500000 UNIT PO ×4 (09:12→21:03)
[2020-04-19] MEDS: amiodarone 200 mg Tablet 400 MG PO ×2 (09:12→21:03)
[2020-04-19] MEDS: metoprolol tartrate 50 mg Tablet PO ×2 (09:12→17:03)
--- NOTE | 2020-04-19 09:30 | PC.NURSE ---
pipercillin stopped for now will restart when chemo is completed.
--- NOTE | 2020-04-19 11:38 | PC.NURSE ---
up to b.s.c. with assist. o2 sat 88%. sm. green unformed mucoid. b.m.
--- NOTE | 2020-04-19 13:20 | P.PN_ITS ---
Subjective Subjective: Interval history: Patient had the chemotherapy this morning. She is somewhat nauseous. Shortness of breath is better. She still uses 6 L of oxygen by nasal cannula. Denies any fever or chills. No significant cough. Had a dialysis last evening. Medications: Reviewed: Yes Medication Review Details: Current Medications Acetaminophen (Tylenol) 650 mg PO Q6H PRN PRN Reason: MILD PAIN Last Admin: 04/18/20 08:48 Dose: 650 mg Documented by: Hydrocodone Bitart/Acetaminophen ([place] 10-325 Mg) 1 tab PO Q4H PRN PRN Reason: MODERATE PAIN Last Admin: 04/18/20 19:30 Dose: 1 tab Documented by: Albuterol/Ipratropium (Duoneb) 3 ml INHALATION Q6H PRN PRN Reason: SHORTNESS OF BREATH Last Admin: 04/19/20 08:20 Dose: 3 ml Documented by: Amiodarone HCl (Cordarone) 400 mg PO [facility] Last Admin: 04/19/20 09:12 Dose: 400 mg Documented by: Denture Adhesive (Fixodent) 1 applic DENTAL PRN PRN PRN Reason: denture adhesive Last Admin: 04/14/20 13:27 Dose: 1 applic Documented by: Heparin Sodium (Beef Lung) (Heparin) 5,000 unit SUBCUT Q12H [facility] Last Admin: 04/19/20 05:46 Dose: 5,000 unit Documented by: Piperacillin Sod/Tazobactam (Sod 2.25 gm/ Sodium Chloride) 50 mls @ 100 mls/hr IV Q8H [facility] Stop: 04/20/20 12:00 Last Admin: 04/19/20 09:13 Dose: 12.5 mls/hr Documented by: Piperacillin Sod/Tazobactam (Sod 3.375 gm/ Sodium Chloride) 50 mls @ 12.5 mls/hr IV Q12H [facility] Metoprolol Tartrate (Lopressor) 50 mg PO BID [facility] Last Admin: 04/19/20 09:12 Dose: 50 mg Documented by: Morphine Sulfate (Morphine) 2 mg IVP Q4H PRN PRN Reason: SEVERE PAIN Last Admin: 04/19/20 00:59 Dose: 2 mg Documented by: Nystatin (Nystatin) 500,000 unit PO QID [facility] Last Admin: 10/02/20 09:12 Dose: 500,000 unit Documented by: Vitals/I&O/Wt Last Vital Signs Temp 98.6 F 04/19/20 08:00 Pulse 82 04/19/20 10:00 Resp 20 H 04/19/20 10:00 BP 137/76 04/19/20 10:00 Pulse Ox 93 04/19/20 10:00 04/18/20 04/19/20 04/19/20 22:59 06:59 14:59 Intake Total 350 / 670 937.05 / 1607.05 420 / 420 Output Total 250 / 250 125 / 375 Balance 100 / 420 812.05 / 1232.05 420 / 420 Weight last 48 hrs Weight 235 lb 3.2 oz Physical Exam Narrative: EXAM NARRATIVE: GENERAL: Patient is alert and is on a BiPAP HEENT: Minimal pallor, no icterus or lymphadenopathy. NECK: Trachea appears to be central. No masses noted. No JVD or thyromegaly appreciated. No carotid bruit. RESPIRATORY: Chest is symmetrical. No intercostals muscle retraction or any accessory muscle activation. There is no chest wall tenderness. Breath sounds are heard bilaterally. Diminished intensity of breath sounds in the both bases. Scattered coarse crackles. Occasional expiratory wheeze BREASTS: Deferred. HEART: The PMI could not be palpated. No palpable precordial events. S1 and S2 are normal. No S3 or S4 heard. No pericardial rub or any click heard. ABDOMEN: No vessel pulsations or distention. No tenderness. No organomegaly appreciated. No abdominal bruit. Bowel sounds are normally heard. : Deferred. RECTAL: Deferred. LYMPHATIC: No lymphadenopathy noted in the neck. EXTREMITIES: 1-+ edema both lower extremities. No cyanosis. MUSCULOSKELETAL: No acute joint deformities or swelling SKIN: There are no significant scars or skin rash noted. NEUROPSYCHIATRIC: No obvious neurological deficits. Urinary Catheter Management^: Torres: Cath Placed During This Visit: yes Reason for Continuing Indwelling Catheter: Accurate Measurement of Urinary Output in Critically Ill Patients Urinary Catheter Date of Insertion: 04/15/20 Urinary Catheter Time of Insertion: 15:20 Data : 04/19/20 04:40 04/19/20 04:40 Other Labs: Chest x-ray from 04/16/2020 revealed 1. Parenchymal densities left lower lobe suspicious for pneumonia. 2. A PICC line is present on the right side in good position. 3. A central line is seen on the right side extending into the right atrium 4. Interstitial congestion right lower lobe 5. Right lower lobe pleural effusion A&P Assessment and plan (1) New onset atrial fibrillation: Patient currently is in sinus rhythm. May continue on the current amiodarone. Repeat EKG in the morning. Status: Acute (2) Acute diastolic heart failure: Heart failure is compensated. Management of fluid status, as per nephrology Status: Acute (3) Pleural effusion: Status post thoracentesis Status: Acute (4) Metastatic cancer: Patient is currently on chemotherapy. Seems to be tolerating fairly well. Management as per the oncology service. 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 Currently has no fever. Status: Acute (6) Acute kidney injury: Dialysis as per the nephrology Status: Acute Additional A&P Information Other problems are as outlined before. Attestations Medical Necessity Statement*: Disposition as per the primary Coding Level of Care Code Acute Toggle Press Operator for [facility] Fwd Diagnoses New onset atrial fibrillation I48.91 Acute diastolic heart failure I50.31 Pleural effusion J90 Metastatic cancer C77.1 Area of secondary neoplastic involvement: lymph node Lymph node location: intrathoracic region Obstructive pneumonia J18.9 Acute kidney injury N17.9
--- NOTE | 2020-04-19 13:23 | P.PN_ITS ---
Subjective Subjective: Interval history: no complaints, received chemotherapy today Medications: Reviewed: Yes Vitals/I&O/Wt Last Vital Signs Temp 98.6 F 04/19/20 08:00 Pulse 71 04/19/20 12:00 Resp 24 H 04/19/20 12:00 BP 137/76 04/19/20 10:00 Pulse Ox 93 04/19/20 10:00 04/18/20 04/19/20 04/19/20 22:59 06:59 14:59 Intake Total 350 / 670 937.05 / 1607.05 420 / 420 Output Total 250 / 250 125 / 375 Balance 100 / 420 812.05 / 1232.05 420 / 420 Weight last 48 hrs Weight 106.685 kg Physical Exam Resp: AUSCULTATION: rhonchi and wheezes Cardio: COMMON NORMALS: regular rate and regular rhythm RATE: regular rate RHYTHM: regular rhythm Extremity: GENERAL: Yes edema (1+) Urinary Catheter Management^: Torres: Cath Placed During This Visit: yes Reason for Continuing Indwelling Catheter: Accurate Measurement of Urinary Output in Critically Ill Patients Urinary Catheter Date of Insertion: 04/15/20 Urinary Catheter Time of Insertion: 15:20 Data : 04/20/20 03:29 04/20/20 03:29 A&P Additional A&P Information 1. Acute kidney injury, oliguric. Next planned dialysis 04/20/2020. 2. Hyponatremia, improved 3. Metastatkic Small Cell lung cancer, received Etoposide and Cisplatin 4. Post obstructive pneumonia Attestations Medical Necessity Statement*: per primary service Time Spent in Patient Care: 16 - 35 minutes Coding Level of Care Code Acute Cooking Appliance Repair Technician for [facility]yon Pratt
--- NOTE | 2020-04-19 16:42 | P.PN_ITS ---
Subjective Subjective: Interval history: On day 3 of etoposide today. Feels tired this morning. Used BiPAP overnight, however this morning was on high flow nasal cannula. Medications: Reviewed: Yes Vitals/I&O/Wt Last Vital Signs Temp 98.6 F 04/19/20 08:00 Pulse 71 04/19/20 14:00 Resp 20 H 04/19/20 14:00 BP 106/62 04/19/20 14:00 Pulse Ox 92 04/19/20 14:00 04/19/20 04/19/20 04/19/20 06:59 14:59 22:59 Intake Total 937.05 / 1607.05 470 / 470 Output Total 125 / 375 Balance 812.05 / 1232.05 470 / 470 Weight last 48 hrs Weight 106.685 kg Physical Exam Narrative: EXAM NARRATIVE: GEN: Awake, alert and oriented, no acute distress CVS: S1S2 N RS: Bilateral crackles over bilateral lung bases. Abd: Soft, nt/nd , bs+ SOIL ANALYST: no focal neuro deficits Urinary Catheter Management^: Torres: Cath Placed During This Visit: yes Reason for Continuing Indwelling Catheter: Accurate Measurement of Urinary Output in Critically Ill Patients Urinary Catheter Date of Insertion: 04/15/20 Urinary Catheter Time of Insertion: 15:20 Data : 04/20/20 03:29 04/19/20 04:40 A&P Assessment and plan (1) Metastatic lung cancer (metastasis from lung to other site): Status: Acute Qualifiers: Laterality: right Qualified Code(s): C34.91 - Malignant neoplasm of unspecified part of right bronchus or lung (2) ATN (acute tubular necrosis): Status: Acute (3) Hyponatremia: Status: Acute (4) New onset of congestive heart failure: Status: Acute (5) Abnormal transaminases: Status: Acute (6) Pneumonia: Status: Acute Qualifiers: Pneumonia type: due to unspecified organism Lung location: unspecified part of lung Laterality: right Qualified Code(s): J18.9 - Pneumonia, unspecified organism (7) Leukocytosis: Status: Acute Qualifiers: Leukocytosis type: unspecified Qualified Code(s): D72.829 - Elevated white blood cell count, unspecified (8) Sepsis with acute hypoxic respiratory failure: Status: Acute Qualifiers: Sepsis type: sepsis due to unspecified organism Severe sepsis shock status: without septic shock Qualified Code(s): A41.9 - Sepsis, unspecified organism; R65.20 - Severe sepsis without septic shock; J96.01 - Acute respiratory failure with hypoxia Additional A&P Information # Metastatic small cell lung cancer Pathology confirmed small cell lung cancer neuroendocrine differentiation Currently on chemotherapy with carboplatin and etoposide, completing day 3 cycle 1 today # Hypoxic respiratory failure, multifactorial related to likely lung malignancy, B/L pleural effusions, increasing as of most recent CXR, increasing pulmonary vascular congestion and pulmonary edema, post obstructive pneumonia from bronchial obstruction. Requiring BiPAP at nighttime, on high flow nasal cannula in the day. Thoracentesis was deferred once patient started chemotherapy on dialysis. Will repeat a CAT scan tomorrow after dialysis to follow-up on pleural effusions and reassess need for thoracentesis. #DIONISIO most likely secondary to ATN. Creatinine at 5, improving to 3.1 today.. Started on hemodialysis. Patient was oliguric. Torres to monitor I/O, daily weight Appreciate pulmonary and renal recommendations #Sepsis, present on admission, now resolved. Fluid gram stain and cx negative to date from thoracentesis on 04/11. Blood culture negative on admission. Patient is not febrile. Leukocytosis is persisting, however patient has mul tiple stressors at this present time which could result in margination. However more than likely it is contributed by obstructive process by endobronchial tumor. Patient has been on a prolonged course of antibiotics up until now, meropenem and vancomycin, doxycycline earlier in the course of admission. These have been changed to Zosyn. Will repeat a CT chest and reassess for any improvement. # Hyponatremia. 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 Possibly it is secondary to lung disease and malignancy. Appreciate nephrology recommendations # Acute kidney injury. Continues to worsen with Cr up to 5 now. clinically signs of volume overload + . montior I/O, daily weight, patient agreeable for HD if needed # New onset atrial fibrillation with RVR. Heart rate is well controlled # Presumed PE, unable to get a V/Q scan due to inability to lie flat. Discussed with Dr. Jordan, findings appear c/w compression from external lung mass rather than PE, heparin drip discontinued. Switch to ppx a/c DVT prophylaxis: Heparin Attestations Medical Necessity Statement*: Chemotherapy, ongoing hemodialysis, respiratory failure requiring intensive support Coding Level of Care Code Acute Intensive Care Ambulance Paramedic for Chg Fwd Diagnoses Metastatic lung cancer (metastasis from lung to other site) C34.91 Laterality: right ATN (acute tubular necrosis) N17.0 Hyponatremia E87.1 New onset of congestive heart failure I50.9 Abnormal transaminases R74.8 Pneumonia J18.9 Pneumonia type: due to unspecified organism Lung location: unspecified part of lung Laterality: right Leukocytosis D72.829 Leukocytosis type: unspecified Sepsis with acute hypoxic respiratory failure A41.9; R65.20; J96.01 Sepsis type: sepsis due to unspecified organism Severe sepsis shock status: without septic shock
[2020-04-20] VITALS (15 sets, daily range): BP systolic 106–154; BP diastolic 61–81; PULSE 63–141; RESP 12–33; TEMP 36.5–37.2; O2SAT 74–97
[2020-04-20] MEDS: HYDROcodone-acetaminophen 10-325 mg Tablet 1 TAB PO ×2 (03:15→20:11)
[2020-04-20 04:33] LABS: Basophils % 0.1 %; Hemoglobin 10.6 g/dL (11.5-15.3); Lymphocytes # 0.5 10^3/uL (0.8-4.8); Lymphocytes % 2.8 %; Mean Corpuscular HGB Conc 32.1 g/dL (30.0-36.0); Mean Corpuscular Volume 96.5 fL (81-99); Mean Platelet Volume 11.1 fL (7.4-10.4); Monocytes # 0.4 10^3/uL (0.2-0.9); Monocytes % 1.9 %; Neutrophils # 18.22 10^3/uL (1.8-7.7); Neutrophils % 94.5 %; Nucleated Red Blood Cells % 0 %; Platelet Count 232 10^3/cmm (130-400); Red Blood Count 3.42 10^6/uL (4.1-5.3); Red Cell Distribution Width 13.1 % (12.1-15.1); White Blood Count 19.3 10^3/uL (4.0-10.0)
[2020-04-20] MEDS: morphine 4 mg/mL SDV 1 mL 2 MG IVP ×4 (04:43→22:59)
[2020-04-20] MEDS: heparin 5,000 unit/mL INJ 1 mL 5000 UNIT SUBCUT ×2 (04:43→18:03)
[2020-04-20 07:25] LABS: Alanine Aminotransferase 25 U/L (0-33); Albumin Level 3.1 g/dL (3.5-5.2); Alkaline Phosphatase 241 IU/L (35-105); Anion Gap 19.5 (5-19); Aspartate Amino Transferase 34 U/L (0-32); Carbon Dioxide 23 mmol/L (22-29); Chloride 97 mmol/L (98-107); Globulin 2.4 g/dL (1.3-4.6); Glomerular Filtration Rate 13.7 mL/min (90-130); Glucose 109 mg/dL (65-115); Osmolality Calculated 307 mOsm/kg (285-295); Potassium 4.5 mmol/L (3.5-5.1); Sodium 135 mmol/L (136-145); Total Bilirubin 0.3 mg/dL (0.15-1.2); Total Protein 5.5 g/dL (6.6-8.7)
[2020-04-20 07:56] LABS: Blood Urea Nitrogen 86 mg/dL (8-23)
--- NOTE | 2020-04-20 08:30 | PM.PN ---
Subjective Subjective: Interval history: no acute overnight events, completed chemo yesterday, planed for HD today, leukocytosis persisting , urine output 500cc Medications: Reviewed: Yes Vitals/I&O/Wt Last Vital Signs Temp 97.7 F 04/20/20 06:00 Pulse 76 04/20/20 08:00 Resp 21 H 04/20/20 08:00 BP 145/81 04/20/20 08:00 Pulse Ox 92 04/20/20 08:00 04/19/20 04/20/20 04/20/20 22:59 06:59 14:59 Intake Total 703.05 / 1173.05 50 / 1223.05 Output Total 200 / 200 350 / 550 Balance 503.05 / 973.05 -300 / 673.05 Physical Exam Narrative: EXAM NARRATIVE: GEN: Awake, alert and oriented, no acute distress CVS: S1S2 N RS: Bilateral crackles over bilateral lung bases. Abd: Soft, nt/nd , bs+ MERCERIZING RANGE FEEDER: no focal neuro deficits Urinary Catheter Management^: Torres: Cath Placed During This Visit: yes Reason for Continuing Indwelling Catheter: Accurate Measurement of Urinary Output in Critically Ill Patients Urinary Catheter Date of Insertion: 04/15/20 Urinary Catheter Time of Insertion: 15:20 Data : 04/20/20 03:29 04/20/20 03:29 Micro: Microbiology 04/19/20 16:00 Gram Stain - Preliminary Sputum - Expectorated Sputum A&P Assessment and plan (1) Metastatic lung cancer (metastasis from lung to other site): Status: Acute Qualifiers: Laterality: right Qualified Code(s): C34.91 - Malignant neoplasm of unspecified part of right bronchus or lung (2) ATN (acute tubular necrosis): Status: Acute (3) Hyponatremia: Status: Acute (4) New onset of congestive heart failure: Status: Acute (5) Abnormal transaminases: Status: Acute (6) Pneumonia: Status: Acute Qualifiers: Pneumonia type: due to unspecified organism Laterality: right Lung location: unspecified part of lung Qualified Code(s): J18.9 - Pneumonia, unspecified organism (7) Leukocytosis: Status: Acute Qualifiers: Leukocytosis type: unspecified Qualified Code(s): D72.829 - Elevated white blood cell count, unspecified (8) Sepsis with acute hypoxic respiratory failure: Status: Acute Qualifiers: Sepsis type: sepsis due to unspecified organism Severe sepsis shock status: without septic shock Qualified Code(s): A41.9 - Sepsis, unspecified organism; R65.20 - Severe sepsis without septic shock; J96.01 - Acute respiratory failure with hypoxia Additional A&P Information # Metastatic small cell lung cancer Pathology confirmed small cell lung cancer neuroendocrine differentiation Currently on chemotherapy with carboplatin and etoposide, completing day 3 cycle 1 today # Hypoxic respiratory failure, multifactorial related to likely lung malignancy, B/L pleural effusions, increasing as of most recent CXR, increasing pulmonary vascular congestion and pulmonary edema, post obstructive pneumonia from bronchial obstruction. Requiring BiPAP at nighttime, on high flow nasal cannula in the day. Thoracentesis was deferred once patient started chemotherapy on dialysis. Will repeat a CAT scan tomorrow after dialysis to follow-up on pleural effusions and reassess need for thoracentesis. #DIONISIO most likely secondary to ATN. Creatinine at 5, improving to 3.1 today.. Started on hemodialysis. Patient was oliguric. Torres to monitor I/O, daily weight Appreciate pulmonary and renal recommendations #Sepsis, present on admission, now resolved. Fluid gram stain and cx negative to date from thoracentesis on 04/11. Blood culture negative on admission. Patient is not febrile. Leukocytosis is persisting, however patient has multiple stressors at this present time which could result in margination. However more than likely it is contributed by obstructive process by endobronchial tumor. Complicated effusion also a possibility. Patient has been on a prolonged course of antibiotics up until now, meropenem and vancomycin, doxycycline earlier in the course of admission. These have been changed to Zosyn. Will repeat a CT chest today after HD to monitor for interval improvement. # Hyponatremia. 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 Possibly it is secondary to lung disease and malignancy. Appreciate nephrology recommendations # Acute kidney injury. Continues to worsen with Cr up to 5 now. clinically signs of volume overload + . montior I/O, daily weight, patient agreeable for HD if needed # New onset atrial fibrillation with RVR. Heart rate is well controlled # Presumed PE, unable to get a V/Q scan due to inability to lie flat. Discussed with Dr. Jordan, findings appear c/w compression from external lung mass rather than PE, heparin drip discontinued. Switch to ppx a/c DVT prophylaxis: Heparin Attestations Medical Necessity Statement*: Ct chest today, HD , close monitoring of respiratory status Coding Level of Care Code Acute Respite Coordinator for Chg Fwd Diagnoses Metastatic lung cancer (metastasis from lung to other site) C34.91 Laterality: right ATN (acute tubular necrosis) N17.0 Hyponatremia E87.1 New onset of congestive heart failure I50.9 Abnormal transaminases R74.8 Pneumonia J18.9 Pneumonia type: due to unspecified organism Laterality: right Lung location: unspecified part of lung Leukocytosis D72.829 Leukocytosis type: unspecified Sepsis with acute hypoxic respiratory failure A41.9; R65.20; J96.01 Sepsis type: sepsis due to unspecified organism Severe sepsis shock status: without septic shock
--- NOTE | 2020-04-20 09:04 | ECG_ITS ---
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 Measurements Intervals [place] Rate: 73 P: 32 KS: 141 QRS: 65 QRSD: 84 T: 32 QT: 332 QTc: 366 Interpretive Statements SINUS RHYTHM WITH SINUS ARRHYTHMIA LOW QRS VOLTAGE IN PRECORDIAL LEADS [QRS DEFLECTION < 1.0 mV IN CHEST LEADS] NONSPECIFIC T-WAVE ABNORMALITY Compared to ECG 04/15/2020 08:38:55 Low QRS voltage now present Atrial flutter no longer present T-wave abnormality still present Electronically Signed On 04-22-2020 17:38:13 CDT by Jonah Velásquez M.D. [id number]
--- NOTE | 2020-04-20 09:38 | CTR_ITS ---
PROCEDURE INFORMATION: Exam: CT Chest Without Contrast Exam date and time: 04/20/2020 1:50 PM Age: 64 years old Clinical indication: Condition or disease; Lung condition and disease; Cancer; Cancer type and anatomical location: Unknown primary; Prior surgery; Surgery date: 3-7 days post-operative; Surgery type: Dialysis cath; Patient HX: Follow up pleural effusion and empyema post dialysis; Additional info: Follow up pleural effusion, development of empyema TECHNIQUE: Imaging protocol: Computed tomography of the chest without contrast. Radiation optimization: All CT scans at this facility use at least one of these dose optimization techniques: automated exposure control; mA and/or kV adjustment per patient size (includes targeted exams where dose is matched to clinical indication); or iterative reconstruction. COMPARISON: CT chest abd pel w con* 04/10/2020 2:33 PM RADIATION DOSE METRICS: Total DLP (mGy-cm): 916.81 FINDINGS: Tubes, catheters and devices: Central venous catheter terminates in the right atrium. PICC line terminates in the right atrium. Lungs: See Mediastinal space finding. Pleural space: There is a right pleural effusion which is mildly larger when compared to the prior study with loculated appearing components at the right lung base raising concern for empyema. There is a small to moderate left pleural effusion which was not seen on the prior study. Heart: Multivessel atherosclerotic disease which involves the coronary arteries. Mediastinal space: Right mediastinal/right perihilar mass lesion is similar to the prior study. Multiple bilateral pulmonary metastatic lesions are unchanged from the prior study. Aorta: Unremarkable. No aortic aneurysm. Lymph nodes: There are multiple mediastinal and bilateral perihilar lymph nodes not optimally evaluated without IV contrast. Liver: Multiple hepatic metastatic lesions were seen on the prior study as well. Bones/joints: Unremarkable. No acute fracture. Soft tissues: Unremarkable. CT/CT chest wo con [id number] IMPRESSION: 1. The right pleural effusion has enlarged when compared to the prior study and has loculated components raising concern for empyema. There is a small to moderate left pleural effusion which was not seen on the prior study. 2. Right mediastinal/right perihilar mass lesion is similar to the prior study. Multiple bilateral pulmonary metastatic lesions are unchanged from the prior study. Radiation Dose CTDIVOL = (mGy): DLP = 916.81 (mGy-cm)
[2020-04-20] MEDS: ipratropium-albuterol 3 mL Neb INHALATION ×2 (09:39→19:52)
--- NOTE | 2020-04-20 10:26 | P.PN_ITS ---
Subjective Subjective: Interval history: seen during dialysis. she did not sleep well last night. Medications: Reviewed: Yes Vitals/I&O/Wt Last Vital Signs Temp 97.7 F 04/20/20 06:00 Pulse 76 04/20/20 09:39 Resp 22 H 04/20/20 09:39 BP 145/81 04/20/20 08:00 Pulse Ox 95 04/20/20 09:39 04/19/20 04/20/20 04/20/20 22:59 06:59 14:59 Intake Total 703.05 / 1173.05 50 / 1223.05 240 / 240 Output Total 200 / 200 350 / 550 Balance 503.05 / 973.05 -300 / 673.05 240 / 240 Physical Exam Neck/C-Spine: OTHER: temporary right IJ dialysis catheter Urinary Catheter Management^: Torres: Cath Placed During This Visit: yes Reason for Continuing Indwelling Catheter: Accurate Measurement of Urinary O utput in Critically Ill Patients Urinary Catheter Date of Insertion: 04/15/20 Urinary Catheter Time of Insertion: 15:20 Data : 04/20/20 03:29 04/20/20 03:29 Micro: Microbiology 04/19/20 16:00 Gram Stain - Preliminary Sputum - Expectorated Sputum A&P Additional A&P Information 1. Acute kidney injury, oliguric. Hemodialysis today, 2L UF 2. Hyponatremia, improved 3. Metastatic Small Cell lung cancer, received Etoposide and Cisplatin 4. Post obstructive pneumonia Next planned HD 04/23/2020. If no recovery of renal function by then, recommend change to tunneled dialysis catheter. Attestations Medical Necessity Statement*: per primary service Time Spent in Patient Care: 16 - 35 minutes Coding Level of Care Code Acute Economic Developer for Kenyon Pratt
[2020-04-20] MEDS: amiodarone 200 mg Tablet 400 MG PO (10:58)
[2020-04-20] MEDS: metoprolol tartrate 50 mg Tablet PO ×2 (10:59→18:02)
[2020-04-20] MEDS: nystatin 100,000 unit/mL UDC 5 mL 500000 UNIT PO ×2 (11:00→18:03)
[2020-04-20] MEDS: piperacillin-tazobactam 3.375 GM in sodium chloride 0.9% (plus) 50 ML IV (14:33)
--- NOTE | 2020-04-20 16:54 | PM.PN ---
Subjective Subjective: Interval history: Patient is doing well. She denies any complaints of chest pain, shortness of breath or palpitations. She is undergoing dialysis today. She has stayed in normal sinus rhythm and rate is well controlled. Vitals/I&O/Wt Last Vital Signs Temp 98.6 F 04/20/20 12:00 Pulse 82 04/20/20 16:00 Resp 23 H 04/20/20 16:00 BP 124/72 04/20/20 16:00 Pulse Ox 95 04/20/20 16:00 04/20/20 04/20/20 04/20/20 06:59 14:59 22:59 Intake Total 50 / 1223.05 240 / 240 Output Total 350 / 550 Balance -300 / 673.05 240 / 240 Physical Exam Narrative: EXAM NARRATIVE: GENERAL: Patient is drowsy but oriented HEENT: Minimal pallor, no icterus or lymphadenopathy. NECK: Trachea appears to be central. No masses noted. No JVD or thyromegaly appreciated. No carotid bruit. RESPIRATORY: Chest is symmetrical. No intercostals muscle retraction or any accessory muscle activation. There is no chest wall tenderness. Breath sounds are heard bilaterally. Diminished intensity of breath sounds in the both bases. Scattered coarse crackles. Occasional expiratory wheeze BREASTS: Deferred. HEART: The PMI could not be palpated. No palpable precordial events. S1 and S2 are normal. No S3 or S4 heard. No pericardial rub or any click heard. ABDOMEN: No vessel pulsations or distention. No tenderness. No organomegaly appreciated. No abdominal bruit. Bowel sounds are normally heard. : Deferred. RECTAL: Deferred. LYMPHATIC: No lymphadenopathy noted in the neck. EXTREMITIES: 1-+ edema both lower extremities. No cyanosis. MUSCULOSKELETAL: No acute joint deformities or swelling SKIN: There are no significant scars or skin rash noted. NEUROPSYCHIATRIC: No obvious neurological deficits. Urinary Catheter Management^: Torres: Cath Placed During This Visit: yes Reason for Continuing Indwelling Catheter: Accurate Measurement of Urinary Output in Critically Ill Patients Urinary Catheter Date of Insertion: 04/15/20 Urinary Catheter Time of Insertion: 15:20 Data : 04/20/20 03:29 04/20/20 03:29 Micro: Microbiology 04/19/20 16:00 Gram Stain - Final Sputum - Expectorated Sputum A&P Assessment and plan (1) New onset atrial fibrillation: Patient currently is in sinus rhythm. Continue on current dose of p.o. amiodarone and metoprolol. Status: Acute (2) Acute diastolic heart failure: Heart failure is compensated. Management of fluid status, as per nephrology Status: Acute (3) Pleural effusion: Status post thoracentesis Status: Acute (4) Metastatic cancer: Patient is currently on chemotherapy. Seems to be tolerating fairly well. Management as per the oncology service. 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 Currently has no fever. Status: Acute (6) Acute kidney injury: Dialysis as per the nephrology Status: Acute Additional A&P Information Other problems are as outlined before. Attestations Medical Necessity Statement*: Care expected to cross 2 midnights. Coding Level of Care Code Acute Student Financial Aid Manager for Kenyon Pratt Diagnoses New onset atrial fibrillation I48.91 Acute diastolic heart failure I50.31 Pleural effusion J90 Metastatic cancer C77.1 Area of secondary neoplastic involvement: lymph node Lymph node location: intrathoracic region Obstructive pneumonia J18.9 Acute kidney injury N17.9
[2020-04-20] MEDS: ondansetron 2 mg/ML SDV 2 mL 4 MG IVP (20:15)
--- NOTE | 2020-04-20 21:57 | PC.NURSE ---
Pt is continuing to become increasingly short of breath. Respiratory contacted and suggested bi-pap. Pt has become tachycardic in the 120's. Dr. Gotti notified.
[2020-04-21] VITALS (22 sets, daily range): BP systolic 90–132; BP diastolic 47–86; PULSE 67–86; RESP 13–25; TEMP 36.6–36.8; O2SAT 90–100
[2020-04-21] MEDS: piperacillin-tazobactam 3.375 GM in sodium chloride 0.9% (plus) 50 ML IV ×2 (01:54→13:42)
[2020-04-21] MEDS: morphine 4 mg/mL SDV 1 mL 2 MG IVP ×3 (02:30→10:42)
[2020-04-21 03:31] LABS: Basophils % 0.1 %; Eosinophils % 0.1 %; Hemoglobin 9.9 g/dL (11.5-15.3); Lymphocytes # 0.8 10^3/uL (0.8-4.8); Lymphocytes % 4.6 %; Mean Corpuscular HGB Conc 31.9 g/dL (30.0-36.0); Mean Corpuscular Hemoglobin 31.2 pg (28.0-34.0); Mean Corpuscular Volume 97.8 fL (81-99); Mean Platelet Volume 10.9 fL (7.4-10.4); Monocytes # 0.1 10^3/uL (0.2-0.9); Monocytes % 0.5 %; Neutrophils # 15.47 10^3/uL (1.8-7.7); Neutrophils % 94.2 %; Nucleated Red Blood Cells % 0 %; Platelet Count 177 10^3/cmm (130-400); Red Blood Count 3.17 10^6/uL (4.1-5.3); Red Cell Distribution Width 12.8 % (12.1-15.1); White Blood Count 16.4 10^3/uL (4.0-10.0)
[2020-04-21 03:53] LABS: Magnesium 2.3 mg/dL (1.7-2.3)
[2020-04-21 03:54] LABS: Alanine Aminotransferase 21 U/L (0-33); Albumin Level 2.7 g/dL (3.5-5.2); Alkaline Phosphatase 204 IU/L (35-105); Anion Gap 18.1 (5-19); Aspartate Amino Transferase 39 U/L (0-32); Blood Urea Nitrogen 56 mg/dL (8-23); Calcium 8.7 mg/dL (8.5-10.5); Carbon Dioxide 25 mmol/L (22-29); Chloride 98 mmol/L (98-107); Globulin 2.4 g/dL (1.3-4.6); Glomerular Filtration Rate 16.4 mL/min (90-130); Glucose 112 mg/dL (65-115); Osmolality Calculated 300 mOsm/kg (285-295); Potassium 4.1 mmol/L (3.5-5.1); Sodium 137 mmol/L (136-145); Total Bilirubin 0.3 mg/dL (0.15-1.2); Total Protein 5.1 g/dL (6.6-8.7)
[2020-04-21 04:12] LABS: Phosphorus 7.6 mg/dL (2.5-4.5)
[2020-04-21] MEDS: heparin 5,000 unit/mL INJ 1 mL 5000 UNIT SUBCUT ×2 (04:37→16:49)
[2020-04-21] MEDS: acetaminophen 325 mg Tablet 650 MG PO (05:11)
[2020-04-21] MEDS: ondansetron 2 mg/ML SDV 2 mL 4 MG IVP ×2 (05:21→16:55)
--- NOTE | 2020-04-21 07:04 | PM.PN ---
Subjective Subjective: Interval history: no new complaints Medications: Reviewed: Yes Vitals/I&O/Wt Last Vital Signs Temp 98.9 F 04/20/20 18:00 Pulse 73 04/21/20 04:00 Resp 13 04/21/20 04:00 BP 132/86 04/21/20 04:00 Pulse Ox 100 04/21/20 04:00 04/20/20 04/21/20 04/21/20 22:59 06:59 14:59 Intake Total 50 / 290 530 / 820 Output Total 175 / 175 200 / 375 Balance -125 / 115 330 / 445 Physical Exam Const: COMMON NORMALS: no acute distress GENERAL APPEARANCE: cooperative Resp: AUSCULTATION: diminished lung sounds Cardio: COMMON NORMALS: regular rate and regular rhythm RATE: regular rate RHYTHM: regular rhythm Extremity: GENERAL: Yes edema Urinary Catheter Management^: Torres: Cath Placed During This Visit: yes Reason for Continuing Indwelling Catheter: Accurate Measurement of Urinary Output in Critically Ill Patients Urinary Catheter Date of Insertion: 04/15/20 Urinary Catheter Time of Insertion: 15:20 Data : 04/21/20 03:14 04/21/20 03:14 Other Labs: phos 7.6, calcium 8.7, alb 2.7, Mg 2.3 Micro: Microbiology 04/19/20 16:00 Gram Stain - Final Sputum - Expectorated Sputum Other data: CT Chest: 1. The right pleural effusion has enlarged when compared to the prior study and has loculated components raising concern for empyema. There is a small to moderate left pleural effusion which was not seen on the prior study. 2. Right mediastinal/right perihilar mass lesion is similar to the prior study. Multiple bilateral pulmonary metastatic lesions are unchanged from the prior study. A&P Additional A&P Information 1. Acute kidney injury, oliguric, on hemodialysis 2. Hyperphosphatemia 3. Metastatic Small Cell lung cancer, received Etoposide and Cisplatin, bilateral pleural effusions 4. Post obstructive pneumonia 5. Atrial fibrillation Plan: scheduled to have thoracentesis today. Next planned HD 04/23/2020. If no recovery of renal function by then, recommend change to tunneled dialysis catheter. Begin phosphate binder - phoslo with each meal. Attestations Medical Necessity Statement*: critically ill Time Spent in Patient Care: 16 - 35 minutes Coding Level of Care Code Acute Railroad Firer for Chg Terence
--- NOTE | 2020-04-21 08:49 | P.PN_ITS ---
Subjective Subjective: Interval history: Patient states that she feels okay, however visibly tachypneic on exam. She is saturating 96 to 100% with 6 L/min supplemental oxygen. Underwent hemodialysis yesterday. CT scan of the chest that was performed yesterday ended up showing a complex right-sided loculated effusion versus empyema which could certainly explain her persistent leukocytosis. Pulmonology to review today and possible thoracentesis. Urine output 175 cc overnight and then 200 cc on current shift. Medications: Reviewed: Yes Vitals/I&O/Wt Last Vital Signs Temp 98.2 F 04/21/20 07:22 Pulse 73 04/21/20 04:00 Resp 13 04/21/20 04:00 BP 132/86 04/21/20 04:00 Pulse Ox 100 04/21/20 04:00 04/20/20 04/21/20 04/21/20 22:59 06:59 14:59 Intake Total 50 / 290 530 / 820 Output Total 175 / 175 200 / 375 Balance -125 / 115 330 / 445 Physical Exam Narrative: EXAM NARRATIVE: GEN: Awake, alert and oriented, no acute distress , though does appear tired and tachypneic today. 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 Urinary Catheter Management^: Torres: Cath Placed During This Visit: yes Reason for Continuing Indwelling Catheter: Accurate Measurement of Urinary Outp ut in Critically Ill Patients Urinary Catheter Date of Insertion: 04/15/20 Urinary Catheter Time of Insertion: 15:20 Data : 04/21/20 03:14 04/21/20 03:14 Micro: Microbiology 04/19/20 16:00 Gram Stain - Final Sputum - Expectorated Sputum A&P Assessment and plan (1) Metastatic lung cancer (metastasis from lung to other site): Status: Acute Qualifiers: Laterality: right Qualified Code(s): C34.91 - Malignant neoplasm of unspecified part of right bronchus or lung (2) ATN (acute tubular necrosis): Status: Acute (3) Hyponatremia: Status: Acute (4) New onset of congestive heart failure: Status: Acute (5) Abnormal transaminases: Status: Acute (6) Pneumonia: Status: Acute Qualifiers: Pneumonia type: due to unspecified organism Laterality: right Lung location: unspecified part of lung Qualified Code(s): J18.9 - Pneumonia, unspecified organism (7) Leukocytosis: Status: Acute Qualifiers: Leukocytosis type: unspecified Qualified Code(s): D72.829 - Elevated white blood cell count, unspecified (8) Sepsis with acute hypoxic respiratory failure: Status: Acute Qualifiers: Sepsis type: sepsis due to unspecified organism Severe sepsis shock status: without septic shock Qualified Code(s): A41.9 - Sepsis, unspecified organism; R65.20 - Severe sepsis without septic shock; J96.01 - Acute respiratory failure with hypoxia Additional A&P Information # Metastatic small cell lung cancer Pathology confirmed small cell lung cancer neuroendocrine differentiation Currently on chemotherapy with carboplatin and etoposide, completed day 3 cycle 1 # Hypoxic respiratory failure, multifactorial related to likely lung malignancy, B/L pleural effusions, increasing as of most recent CXR, increasing pulmonary vascular congestion and pulmonary edema, post obstructive pneumonia from bronchial obstruction. Requiring BiPAP at nighttime, on high flow nasal cannula in the day. Stable oxygen requirements for now. CAT scan yesterday showed worsened effusion and now also with loculation therefore a complex parapneumonic effusion versus empyema cannot be excluded. She is to undergo thoracentesis with pulmonary today. #DIONISIO most likely secondary to ATN. Creatinine peak at 5, continues to improve today. Started on hemodialysis. Patient was oliguric. Last dialysis was yesterday with removal of 1.5 L of fluid. Patient though maintaining O2 sats and states breathing is better appears visibly tachypneic today, we will go ahead and administer 40 mg of IV Lasix and monitor urine output. Torres to monitor I/O, daily weight Appreciate pulmonary and renal recommendations #Sepsis, present on admission, now resolved. Fluid gram stain and cx negative to date from thoracentesis on 04/11. Blood culture negative on admission. Patient is not febrile. Leukocytosis is persisting, may be contributed by obstructive process by endobronchial tumor. CAT scan repeated yesterday due to suspicion of complex effusion, and it did reveal multiloculated pleural effusion, possibly empyema.the study was noncontrast. Patient has been on a prolonged course of antibiotics up until now, meropenem and vancomycin, doxycycline earlier in the course of admission. These have been changed to Zosyn. Did not believe this to be an antibiotic failure, rather shows likely to be source control. Will await further cultures from thoracentesis today to change any antibiotic therapy. # Hyponatremia. 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 Possibly it is secondary to lung disease and malignancy. Appreciate nephrology recommendations # Acute kidney injury. Improved cr. clinically signs of volume overload + . montior I/O, daily weight, hemodialysis per renal. # New onset atrial fibrillation with RVR. Heart rate is well controlled now with amiodarone. # Presumed PE, unable to get a V/Q scan due to inability to lie flat. Discussed with Dr. Jordan, findings appear c/w compression from external lung mass rather than PE, heparin drip discontinued. 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
--- NOTE | 2020-04-21 10:35 | PM.PN ---
Subjective Subjective: Interval history: Patient says that she is feeling well. Denies chest pain but is short of breath. Plan is for thoracentesis today. Vitals/I&O/Wt Last Vital Signs Temp 98.2 F 04/21/20 07:22 Pulse 72 04/21/20 10:00 Resp 15 04/21/20 10:00 BP 130/65 04/21/20 10:00 Pulse Ox 100 04/21/20 10:00 04/20/20 04/21/20 04/21/20 22:59 06:59 14:59 Intake Total 50 / 290 530 / 820 Output Total 175 / 175 200 / 375 Balance -125 / 115 330 / 445 Physical Exam Narrative: EXAM NARRATIVE: GENERAL: Patient is drowsy but oriented HEENT: Minimal pallor, no icterus or lymphadenopathy. NECK: Trachea appears to be central. No masses noted. No JVD or thyromegaly appreciated. No carotid bruit. RESPIRATORY: Chest is symmetrical. No intercostals muscle retraction or any accessory muscle activation. There is no chest wall tenderness. Breath sounds are heard bilaterally. Diminished intensity of breath sounds in the both bases. Scattered coarse crackles. Occasional expiratory wheeze BREASTS: Deferred. HEART: The PMI could not be palpated. No palpable precordial events. S1 and S2 are normal. No S3 or S4 heard. No pericardial rub or any click heard. ABDOMEN: No vessel pulsations or distention. No tenderness. No organomegaly appreciated. No abdominal bruit. Bowel sounds are normally heard. : Deferred. RECTAL: Deferred. LYMPHATIC: No lymphadenopathy noted in the neck. EXTREMITIES: 1-+ edema both lower extremities. No cyanosis. MUSCULOSKELETAL: No acute joint deformities or swelling SKIN: There are no significant scars or skin rash noted. NEUROPSYCHIATRIC: No obvious neurological deficits. Urinary Catheter Management^: Torres: Cath Placed During This Visit: yes Reason for Continuing Indwelling Catheter: Accurate Measurement of Urinary Output in Critically Ill Patients Urinary Catheter Date of Insertion: 04/15/20 Urinary Catheter Time of Insertion: 15:20 Data : 04/21/20 03:14 04/21/20 03:14 Micro: Microbiology 04/19/20 16:00 Gram Stain - Final Sputum - Expectorated Sputum A&P Assessment and plan (1) New onset atrial fibrillation: Patient currently is in sinus rhythm. Continue on current dose of p.o. amiodarone and metoprolol. Status: Acute (2) Acute diastolic heart failure: Heart failure is compensated. Management of fluid status, as per nephrology Status: Acute (3) Pleural effusion: Status post thoracentesis Status: Acute (4) Metastatic cancer: Patient is on chemotherapy. Seems to be tolerating fairly well. Management as per the oncology service. 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 Currently has no fever. Status: Acute (6) Acute kidney injury: Dialysis as per the nephrology Status: Acute Additional A&P Information Other problems are as outlined before. 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
[2020-04-21 11:22] LABS: Blood Gas Allen Test Pos; Blood Gas Operator Identificat BD; Blood Gas Sample Site PLEURAL; Blood Gas Sample Type Not specified
[2020-04-21 11:23] LABS: ABG PH Result 6.85 (7.35-7.45)
--- NOTE | 2020-04-21 11:34 | XRR_ITS ---
PROCEDURE INFORMATION: Exam: XR Chest, 1 View Exam date and time: 04/21/2020 11:35 AM Age: 64 years old Clinical indication: Device placement; Other: Pig tail catheter; Additional info: Post right pig tail catheter placement TECHNIQUE: Imaging protocol: XR of the chest Views: 1 view. COMPARISON: CT chest [facility] [id number] 04/20/2020 1:58 PM FINDINGS: Tubes, catheters and devices: Right IJ line tip difficult to visualize, possibly over the distal SVC. Right PICC line tip difficult to visualize, possibly over the right atrium. Lungs: Bilateral pulmonary metastasis better noted on previous CT scan. Pleural space: Percutaneous right pigtail catheter in the region of the right costophrenic angle. Heart/Mediastinum: Probable bilateral hilar metastasis or adenopathy. Vasculature: Calcification of the thoracic aorta and/or great vessels consistent with atherosclerotic vessel disease. Bones/joints: Unremarkable. XR/XR chest 1V portable [id number] IMPRESSION: 1. Right IJ line tip difficult to visualize, possibly over the distal SVC. 2. Right PICC line tip difficult to visualize, possibly over the right atrium. 3. Percutaneous right pigtail catheter in the region of the right costophrenic angle. 4. Bilateral pulmonary metastasis better noted on previous CT scan. 5. Probable bilateral hilar metastasis or adenopathy.
--- NOTE | 2020-04-21 11:35 | P.PN_ITS ---
Subjective Medications: Medication Review Details: Initial consult consult seen earlier by my colleague Dr. Jordan. Follow-up requested for drainage of worsening right pleural effusion even after being on dialysis and concern for empyema. Clinical history so far: 64-year-old Ms. Pamela Jack has some upper respiratory tract infection symptoms which worsen despite outpatient antibiotic therapy and presented to emergency room on 04/08/2020 with diarrhea and polydipsia. CT suggestive of right hilar and suprahilar mass with compression of the distal right main pulmonary artery and partial occlusion of right upper lobe and right middle lobe pulmonary arteries and satellite lesions on anterior chest wall, mediastinum and right middle lobe extending along the fissure with subcarinal and bilateral hilar lymphadenopathy and numerous metastatic lesions on left lung and both hepatic lobes. Also she is CT showed possible postobstructive pneumonia. On 04/11/2020 she underwent right thoracentesis and ultrasound directed biopsy of metastatic liver lesion which showed small cell cancer and received chemotherapy with carboplatin and etoposide. Over the course of her stay she went into renal failure Possibly due to tumor lysis and is currently on dialysis as per renal. Pleural effusions did not improve much after few sessions of hemodialysis and due to concern for empyema I was consulted for right pleural drainage. Today at bedside complains of shortness of breath. Saturating 98% on 6 L nasal cannula. Vitals/I&O/Wt Last Vital Signs Temp 98.2 F 04/21/20 07:22 Pulse 72 04/21/20 10:00 Resp 15 04/21/20 10:00 BP 130/65 04/21/20 10:00 Pulse Ox 100 04/21/20 10:00 04/20/20 04/21/20 04/21/20 22:59 06:59 14:59 Intake Total 50 / 290 530 / 820 Output Total 175 / 175 200 / 375 Balance -125 / 115 330 / 445 Physical Exam Narrative: EXAM NARRATIVE: General: alert, NAD HEENT: conj clear, EOMI, PERRL, mmm, Neck: supple, no meningismus Heme: no cervical LAP Pulmonary: Reduced breath sounds on right lower lung Cardiovascular: rrr, nl s1s2, no mrg Abdomen: soft, nt, nd, no r/g, bs+ Extremities: pulses +, no edema, no c/c : no CVA tenderness Skin: intact, no rash MSK: no back or neck pain Neurologic: grossly intact Urinary Catheter Management^: Torres: Cath Placed During This Visit: yes Reason for Continuing Indwelling Catheter: Accurate Measurement of Urinary Output in Critically Ill Patients Urinary Catheter Date of Insertion: 04/15/20 Urinary Catheter Time of Insertion: 15:20 Data : 04/21/20 03:14 04/21/20 03:14 Micro: Microbiology 04/19/20 16:00 Gram Stain - Final Sputum - Expectorated Sputum A&P Assessment and plan (1) Sepsis with acute hypoxic respiratory failure: Status: Acute Qualifiers: Sepsis type: sepsis due to unspecified organism Severe sepsis shock status: without septic shock Qualified Code(s): A41.9 - Sepsis, unspecified organism; R65.20 - Severe sepsis without septic shock; J96.01 - Acute respiratory failure with hypoxia (2) Metastatic lung cancer (metastasis from lung to other site): Status: Acute Qualifiers: Laterality: right Qualified Code(s): C34.91 - Malignant neoplasm of unspecified part of right bronchus or lung (3) Leukocytosis: Status: Acute Qualifiers: Leukocytosis type: unspecified Qualified Code(s): D72.829 - Elevated white blood cell count, unspecified (4) Recurrent right pleural effusion: Status: Acute (5) Acute kidney injury: Status: Acute #Hypoxic respiratory failure in patient with metastatic small cell cancer and recurrent large right pleural effusion #Recurrent large right pleural effusion likely secondary to metastatic lung cancer/fluid overload from acute kidney injury requiring dialysis -S/p thoracentesis and drained 200 cc on 04/11/2020 -Bilateral pleural effusions persisted and patient was in renal failure requiring dialysis -Even after a few sessions of dialysis pleural effusions did not improve and meanwhile patient leukocytosis and concern for empyema -CT 04/20/2020 showed worsening right pleural effusion possible loculations -S/p right thoracentesis today to rule out empyema and pleural fluid sent for cell count, glucose, LDH, protein. 1000 cc hemorrhagic fluid drained today and left14 Syriac pigtail on right side. -We will repeat chest x-ray and to see for pneumothorax and resolution of pleural effusion -If effusion persists and will attempt to drain tomorrow and give TPA and if possible dornase to break loculations -Once empyema ruled out, eventually patient needs Pleurx catheter for recurrent malignant pleural effusion -Currently on Zosyn -Dialysis schedule as per renal Medical condition, labs investigations, imaging everything reviewed in detail and explained to patient above plan of care. Patient verbalized understanding and agreed with the plan and procedure. Attestations Medical Necessity Statement*: Recurrent pleural effusion acute hypoxic respiratory failure DIONISIO requiring dialysis; recently diagnosed malignancy on chemotherapy Procedures Chest Tube^ Chest Tube 1: Chest tube location: Lateral Chest Size of tube: 14 Chest tube procedure: Yes betadine prep and sterile drapes applied Tube sutured to skin: Yes Sterile dressing applied: Yes Anesthesia: 1% Lidocaine Volume anesthetic (ml): 10 Progress: Procedure: 14 fr Pigtail Catheter placement Indication: Right pleural effusion Director [employer](s): Dr. Quinteros Datar Consent: Signed and placed in chart Anesthesia: 10 cc 1% lidocaine without epinephrine Description: Right pleural effusion was localized using ultrasound guidance and site marked accordingly. After chlorhexidine skin prep, area was draped in a sterile manner. 1% lidocaine was used for local anesthesia. 14 fr catheter was then inserted using Seldinger technique into the pleural space with return of straw-colored fluid. Thousand cc Moradian fluid drained and then sutured in place, and a sterile dressing applied. 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
[2020-04-21] MEDS: calcium acetate 667 mg Capsule 1334 MG PO ×2 (12:54→16:48)
[2020-04-21] MEDS: metoprolol tartrate 50 mg Tablet PO (12:54)
[2020-04-21] MEDS: amiodarone 200 mg Tablet 400 MG PO ×2 (12:54→20:46)
[2020-04-21] MEDS: nystatin 100,000 unit/mL UDC 5 mL 500000 UNIT PO ×3 (12:55→20:46)
[2020-04-21] MEDS: FUROsemide 10 mg/mL SDV 4mL 40 MG IVP (13:41)
[2020-04-21 14:04] LABS: Body Fluid Polynuclear #Cells 0.055; Body Fluid WBC 420 /uL; Monocytes # Body Fluid 0.365
--- NOTE | 2020-04-21 14:30 | PC.NURSE ---
Thoracentesis and pleural catheter placement performed at bedside by Dr. Sanchez at approximately 11:15am today. Time-out performed and consent form signed prior to procedure start. Consent form placed in chart. Pt was given 2mg IV morphine per Dr. Sanchez prior to procedure for comfort. Pt was placed in left lateral position in the bed, with HOB elevated at about 30 degrees. Pt tolerated procedure well. About 1000ml of serosanguinous fluid evacuated. Pleural fluid samples sent to lab. Pleural catheter sutured into place and covered with gauze and foam tape.
[2020-04-21 14:33] LABS: Albumin Body Fluid 1.3 g/dL; Fluid Alkaline Phos. 29 IU/L; LDH Body Fluid 267 U/L
[2020-04-21 14:34] LABS: Amylase Body Fluid 18 U/L; Cholesterol Body Fluid 33 mg/dL (0-200); Total Protein Pleural Fluid 1.9 g/dL; Triglycerides Body Fluid 23 mg/dL (0-150); Uric Acid Body Fluid 9 mg/dL
[2020-04-21 14:52] LABS: Apprearance, Body Fluid CLOUDY; Color, Body Fluid AMBER
[2020-04-21] MEDS: ipratropium-albuterol 3 mL Neb INHALATION (20:22)
[2020-04-22] VITALS (24 sets, daily range): BP systolic 100–128; BP diastolic 42–85; PULSE 64–126; RESP 13–24; TEMP 36.5–36.8; O2SAT 68–100
[2020-04-22] MEDS: acetaminophen 325 mg Tablet 650 MG PO (02:44)
[2020-04-22] MEDS: piperacillin-tazobactam 3.375 GM in sodium chloride 0.9% (plus) 50 ML IV ×2 (02:45→14:16)
[2020-04-22 04:12] LABS: Basophils % 0.1 %; Eosinophils # 0.1 10^3/uL (0.0-0.8); Eosinophils % 0.7 %; Hematocrit 27.7 % (37.0-47.0); Hemoglobin 8.9 g/dL (11.5-15.3); Lymphocytes # 0.6 10^3/uL (0.8-4.8); Lymphocytes % 3.7 %; Mean Corpuscular HGB Conc 32.1 g/dL (30.0-36.0); Mean Corpuscular Hemoglobin 30.8 pg (28.0-34.0); Mean Corpuscular Volume 95.8 fL (81-99); Mean Platelet Volume 11.6 fL (7.4-10.4); Monocytes % 0.2 %; Neutrophils # 14.53 10^3/uL (1.8-7.7); Neutrophils % 94.7 %; Nucleated Red Blood Cells % 0 %; Platelet Count 139 10^3/cmm (130-400); Red Blood Count 2.89 10^6/uL (4.1-5.3); Red Cell Distribution Width 12.9 % (12.1-15.1); White Blood Count 15.3 10^3/uL (4.0-10.0)
[2020-04-22 04:32] LABS: Alanine Aminotransferase 20 U/L (0-33); Albumin Level 2.8 g/dL (3.5-5.2); Alkaline Phosphatase 197 IU/L (35-105); Aspartate Amino Transferase 34 U/L (0-32); Calcium 8.4 mg/dL (8.5-10.5); Carbon Dioxide 26 mmol/L (22-29); Chloride 97 mmol/L (98-107); Globulin 2.1 g/dL (1.3-4.6); Glomerular Filtration Rate 13.2 mL/min (90-130); Glucose 146 mg/dL (65-115); Osmolality Calculated 311 mOsm/kg (285-295); Sodium 137 mmol/L (136-145); Total Bilirubin 0.2 mg/dL (0.15-1.2); Total Protein 4.9 g/dL (6.6-8.7)
[2020-04-22 04:38] LABS: Magnesium 2.4 mg/dL (1.7-2.3)
[2020-04-22 04:46] LABS: Blood Urea Nitrogen 82 mg/dL (8-23)
[2020-04-22 04:47] LABS: Phosphorus 8.2 mg/dL (2.5-4.5)
[2020-04-22] MEDS: heparin 5,000 unit/mL INJ 1 mL 5000 UNIT SUBCUT ×2 (06:20→18:42)
--- NOTE | 2020-04-22 06:35 | PC.NURSE ---
Has voided x2 s/p waldrop removal resulting in 250 mL total and has had 1 mod soft dark green BM. Remains sitting on EOB. COnt to monitor.
--- NOTE | 2020-04-22 06:42 | PM.PN ---
Subjective Subjective: Interval history: weak, sob, swollen, poor appetite. hs a pigtail catheter Medications: Reviewed: Yes Medication Review Details: Current Medications Acetaminophen (Tylenol) 650 mg PO Q6H PRN PRN Reason: MILD PAIN Last Admin: 04/22/20 02:44 Dose: 650 mg Documented by: Hydrocodone Bitart/Acetaminophen (Lyle 10-325 Mg) 1 tab PO Q4H PRN PRN Reason: MODERATE PAIN Last Admin: 04/20/20 20:11 Dose: 1 tab Documented by: Albuterol/Ipratropium (Duoneb) 3 ml INHALATION Q6H PRN PRN Reason: SHORTNESS OF BREATH Last Admin: 04/21/20 20:22 Dose: 3 ml Documented by: Amiodarone HCl (Cordarone) 400 mg PO [facility] Last Admin: 04/21/20 20:46 Dose: 400 mg Documented by: Calcium Acetate (Phoslo) 1,334 mg PO TIDWM [facility] Last Admin: 04/21/20 16:48 Dose: 1,334 mg Documented by: Denture Adhesive (Fixodent) 1 applic DENTAL PRN PRN PRN Reason: denture adhesive Last Admin: 04/14/20 13:27 Dose: 1 applic Documented by: Heparin Sodium (Beef Lung) (Heparin) 5,000 unit SUBCUT Q12H [facility] Last Admin: 04/22/20 06:20 Dose: 5,000 unit Documented by: Piperacillin Sod/Tazobactam (Sod 3.375 gm/ Sodium Chloride) 50 mls @ 12.5 mls/hr IV Q12H [facility] Last Admin: 04/22/20 02:45 Dose: 12.5 mls/hr Documented by: Metoprolol Tartrate (Lopressor) 50 mg PO BID [facility] Last Admin: 04/21/20 16:50 Dose: Not Given Documented by: Morphine Sulfate (Morphine) 2 mg IVP Q4H PRN PRN Reason: SEVERE PAIN Last Admin: 04/21/20 10:42 Dose: 2 mg Documented by: Nystatin (Nystatin) 500,000 unit PO QID [facility] Last Admin: 04/21/20 20:46 Dose: 500,000 unit Documented by: Ondansetron HCl (Zofran) 4 mg IVP Q6H PRN PRN Reason: NAUSEA AND VOMITING Last Admin: 04/21/20 16:55 Dose: 4 mg Documented by: Vitals/I&O/Wt Last Vital Signs Temp 97.7 F 04/22/20 04:00 Pulse 81 04/22/20 06:00 Resp 17 04/22/20 06:00 BP 121/64 04/22/20 06:00 Pulse Ox 100 04/22/20 06:00 04/21/20 04/21/20 04/22/20 14:59 22:59 06:59 Intake Total 480 / 480 550 / 1030 575 / 1605 Output Total 350 / 350 450 / 800 Balance 480 / 480 200 / 680 125 / 805 Physical Exam Narrative: EXAM NARRATIVE: uncomfortable, vs noted heent- nc/at, eomi neck supple, rt ij tmp dialysis catheter lung pigtail catheter poor air movement and crackles b/l hear reg, +NATHEN abd soft, nt, nd, +BS ext b/l edema neuro- a,a,o x 3 pulses + b/l Urinary Catheter Management^: Torres: Cath Placed During This Visit: yes, but has since been removed by the nurse Reason for Continuing Indwelling Catheter: Decision to DC Catheter Urinary Catheter Date of Insertion: 04/15/20 Urinary Catheter Time of Insertion: 15:20 Date Urinary Catheter Removed: 04/21/20 Time Urinary Catheter Discontinued: 17:30 Data : 04/22/20 03:13 04/22/20 03:13 Micro: Microbiology 04/21/20 11:20 Gram Stain - Final Pleural Fluid 04/19/20 16:00 Gram Stain - Final Sputum - Expectorated Sputum Sputum Culture - Preliminary A&P Additional A&P Information 64 yr old female 1. Acute kidney injury, oliguric, on hemodialysis, last HD 04/20/20- uop improved -s/p thoracentesis -will give lasix and discuss w/ pum if we need extra dialysis today -monitor for renal recovery- however, likely still needs dialysis 2. Hyperphosphatemia0 use non - ca based binder 3. Metastatic Small Cell lung cancer, received Etoposide and Cisplatin, bilateral pleural effusions 4. Post obstructive pneumonia 5. 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
[2020-04-22] MEDS: FUROsemide 40 mg Tablet PO (07:45)
[2020-04-22] MEDS: sevelamer 800 mg Tablet 2400 MG PO ×3 (07:45→18:43)
[2020-04-22] MEDS: FUROsemide 100 MG in sodium chloride 0.9% 40 ML IV (08:44)
[2020-04-22] MEDS: amiodarone 200 mg Tablet 400 MG PO ×2 (08:58→20:44)
[2020-04-22] MEDS: nystatin 100,000 unit/mL UDC 5 mL 500000 UNIT PO ×4 (08:58→20:44)
[2020-04-22] MEDS: metoprolol tartrate 50 mg Tablet PO (08:58)
[2020-04-22] MEDS: morphine 4 mg/mL SDV 1 mL 2 MG IVP (09:17)
[2020-04-22] MEDS: metoprolol tartrate 1 mg/1 mL SDV 5 mL 5 MG IV (09:51)
--- NOTE | 2020-04-22 10:39 | PC.NURSE ---
Summary of care [id number] Patient resting comfortably in bed when nurse entered room. patient currently on 8L NC with oxygen saturation in the high 90s. at bedside rounding on patient. at bedside. HR:130. Morning medications given ( metoprolol 50MG PO, AMIODORONE 400MG PO, 2mg morphVerbal order to connect thoracentesis drain to a dry suction atrium. Atrium connected to wall suction, 445ml of fluid drained into atrium. New dressing applied by nurse. Shortly after connecting patient tube to suction, patient began having slight chest pain 12/26. Call to to notify of patient pain, medications given, and vital signs. verbal order for metoprolo 5mg IV push ONCE. medication given. shortly after patient HR was ranging from 100-120s. on unit and notified. verbal response to give medication more time and call for further orders. patient states that chest pain in gone at this time. call to Granddaughter Vicki and updated about morning events. Per granddaughter that she will update family. will continue to monitor patient.
[2020-04-22] MEDS: metoprolol tartrate 25 mg Tablet PO (11:24)
--- NOTE | 2020-04-22 12:03 | P.PN_ITS ---
Subjective Subjective: Interval history: No acute events overnight. She is still needing 6 L of oxygen through nasal cannula maintains saturation above 95%. Right-sided thoracentesis was done yesterday, with removal of approximately 1000 cc of hemorrhagic fluid No empyema. Pleural fluid analysis has been sent. Pigtail catheter is in place, she has drained close to 500 cc today. No dialysis today. She is on Lasix drip as per renal recommendation. We have moved her out of the ICU. Vitals and labs have been reviewed. Medications: Reviewed: Yes Vitals/I&O/Wt Last Vital Signs Temp 97.8 F 04/22/20 09:00 Pulse 125 H 04/22/20 10:00 Resp 15 04/22/20 10:00 BP 109/72 04/22/20 10:00 Pulse Ox 100 04/22/20 10:00 04/21/20 04/22/20 04/22/20 22:59 06:59 14:59 Intake Total 550 / 1030 575 / 1605 50 / 50 Output Total 350 / 350 450 / 800 605 / 605 Balance 200 / 680 125 / 805 -555 / -555 Weight last 48 hrs Weight 92.76 kg Physical Exam Narrative: EXAM NARRATIVE: EXAM NARRATIVE: uncomfortable, vs noted heent- nc/at, eomi neck supple, rt ij tmp dialysis catheter lung pigtail catheter poor air movement and crackles b/l hear reg, +NATHEN abd soft, nt, nd, +BS ext b/l edema neuro- a,a,o x 3 pulses + b/l Urinary Catheter Management^: Torres: Cath Placed During This Visit: yes, but has since been removed by the nurse Reason for Continuing Indwelling Catheter: Decision to DC Catheter Urinary Catheter Date of Insertion: 04/22/20 Urinary Catheter Time of Insertion: 08:47 Date Urinary Catheter Removed: 04/21/20 Time Urinary Catheter Discontinued: 17:30 Data : 04/22/20 03:13 04/22/20 03:13 Micro: Microbiology 04/21/20 11:20 Gram Stain - Final Pleural Fluid 04/19/20 16:00 Gram Stain - Final Sputum - Expectorated Sputum Sputum Culture - Preliminary A&P Assessment and plan (1) Metastatic lung cancer (metastasis from lung to other site): Status: Acute Qualifiers: Laterality: right Qualified Code(s): C34.91 - Malignant neoplasm of unspecified part of right bronchus or lung (2) ATN (acute tubular necrosis): Status: Acute (3) Hyponatremia: Status: Acute (4) New onset of congestive heart failure: Status: Acute (5) Abnormal transaminases: Status: Acute (6) Pneumonia: Status: Acute Qualifiers: Laterality: right Lung location: unspecified part of lung Pneumonia type: due to unspecified organism Qualified Code(s): J18.9 - Pneumonia, unspecified organism (7) Leukocytosis: Status: Acute Qualifiers: Leukocytosis type: unspecified Qualified Code(s): D72.829 - Elevated white blood cell count, unspecified (8) Sepsis with acute hypoxic respiratory failure: Status: Acute Qualifiers: Sepsis type: sepsis due to unspecified organism Severe sepsis shock status: without septic shock Qualified Code(s): A41.9 - Sepsis, unspecified organism; R65.20 - Severe sepsis without septic shock; J96.01 - Acute respiratory failure with hypoxia Additional A&P Information # Metastatic small cell lung cancer Pathology confirmed small cell lung cancer neuroendocrine differentiation Currently on chemotherapy with carboplatin and etoposide, completed day 3 cycle 1 # Hypoxic respiratory failure, multifactorial related to likely lung malignancy, B/L pleural effusions, increasing as of most recent CXR, increasing pulmonary vascular congestion and pulmonary edema, post obstructive pneumonia from bronchial obstruction. Requiring BiPAP at nighttime, on high flow nasal cannula in the day. Stable oxygen requirements for now. CAT scan yesterday showed worsened effusion and now also with loculation therefore a complex parapneumonic effusion versus empyema cannot be excluded. She is to undergo thoracentesis with pulmonary today. #DINOISIO most likely secondary to ATN. Creatinine peak at 5, continues to improve today. Started on hemodialysis. Patient was oliguric but today has been made 600 .cc urine output on Lasix drip. no dialysis done today. Patient though maintaining O2 sats and states breathing is better. we will go ahead and administer 40 mg of IV Lasix and monitor urine output. Torres to monitor I/O, daily weight Appreciate pulmonary and renal recommendations #Sepsis, present on admission, now resolved. Fluid gram stain and cx negative to date from thoracentesis on 04/11. Blood culture negative on admission. Patient is not febrile. Leukocytosis is persisting, may be contributed by obstr uctive process by endobronchial tumor. CAT scan repeated yesterday due to suspicion of complex effusion, and it did reveal multiloculated pleural effusion, possibly empyema.the study was noncontrast. Patient has been on a prolonged course of antibiotics up until now, meropenem and vancomycin, doxy cycline earlier in the course of admission. These have been changed to Zosyn. Did not believe this to be an antibiotic failure, rather shows likely to be source control. Will await further cultures from thoracentesis today to change any antibiotic therapy. # Hyponatremia. 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 Possibly it is secondary to lung disease and malignancy. Appreciate nephrology recommendations # Acute kidney injury. Improved cr. clinically signs of volume overload + . montior I/O, daily weight, hemodialysis per renal. # New onset atrial fibrillation with RVR. Heart rate is well controlled now with amiodarone. # Presumed PE, unable to get a V/Q scan due to inability to lie flat. Discussed with Dr. Jordan, findings appear c/w compression from external lung mass rather than PE, heparin drip discontinued. Switched to ppx a/c DVT prophylaxis: Heparin Full code Attestations Medical Necessity Statement*: Patient is to be in hospital for the management of hypoxic respiratory failure. Coding Level of Care Code Acute Communications Scientist for [facility] Fwd Diagnoses Metastatic lung cancer (metastasis from lung to other site) C34.91 Laterality: right ATN (acute tubular necrosis) N17.0 Hyponatremia E87.1 New onset of congestive heart failure I50.9 Abnormal transaminases R74.8 Pneumonia J18.9 Laterality: right Lung location: unspecified part of lung Pneumonia type: due to unspecified organism Leukocytosis D72.829 Leukocytosis type: unspecified Sepsis with acute hypoxic respiratory failure A41.9; R65.20; J96.01 Sepsis type: sepsis due to unspecified organism Severe sepsis shock status: without septic shock
--- NOTE | 2020-04-22 14:20 | PC.NURSE ---
call to nurse at approx. 1230 Verbal order from to clamp chest tube at this time. will come see patient after he is done with clinic and drain more fluid off of patient. Informed patient of this and granddaughter. Per patient, she is not up for visitors today. Granddaughter notified.
--- NOTE | 2020-04-22 15:17 | PC.NURSE ---
report called Report called to KATINA Rowan in [facility]. all questions answered at this time. patient transferred to [facility] via stretcher by 2 nurses.
[2020-04-22] MEDS: metoprolol tartrate 50 mg Tablet 75 MG PO (18:42)
[2020-04-22] MEDS: alteplase 1 mg/mL SDV 2 mL 10 MG XX (20:38)
--- NOTE | 2020-04-22 20:47 | PM.PN ---
Subjective Subjective: Interval history: The patient had a repeat thoracentesis on the right side. Currently she has a chest tube. She seems to be somewhat uncomfortable because the chest tube. Denies any fever or chills. She has intermittent atrial flutter/fibrillation. Seems to be mostly staying in a sinus rhythm. Medications: Reviewed: Yes Medication Review Details: Current Medications Acetaminophen (Tylenol) 650 mg PO Q6H PRN PRN Reason: MILD PAIN Last Admin: 04/22/20 02:44 Dose: 650 mg Documented by: Albuterol/Ipratropium (Duoneb) 3 ml INHALATION Q6H PRN PRN Reason: SHORTNESS OF BREATH Last Admin: 04/21/20 20:22 Dose: 3 ml Documented by: Amiodarone HCl (Cordarone) 400 mg PO [facility] Last Admin: 04/22/20 20:44 Dose: 400 mg Documented by: Denture Adhesive (Fixodent) 1 applic DENTAL PRN PRN PRN Reason: denture adhesive Last Admin: 04/14/20 13:27 Dose: 1 applic Documented by: Heparin Sodium (Beef Lung) (Heparin) 5,000 unit SUBCUT Q12H [facility] Last Admin: 04/22/20 18:42 Dose: 5,000 unit Documented by: Piperacillin Sod/Tazobactam (Sod 3.375 gm/ Sodium Chloride) 50 mls @ 12.5 mls/hr IV Q12H [facility] Last Infusion: 04/22/20 18:40 Dose: Infused Documented by: Furosemide 100 mg/ Sodium (Chloride) 50 mls @ 2.5 mls/hr IV .Q20H [facility]; Protocol Last Admin: 04/22/20 08:44 Dose: 5 mg/hr, 2.5 mls/hr Documented by: Metoprolol Tartrate (Lopressor) 75 mg PO BID [facility] Last Admin: 04/22/20 18:42 Dose: 75 mg Documented by: Morphine Sulfate (Morphine) 1 mg IVP Q6H PRN PRN Reason: SEVERE PAIN Nystatin (Nystatin) 500,000 unit PO QID [facility] Last Admin: 04/22/20 20:44 Dose: 500,000 unit Documented by: Ondansetron HCl (Zofran) 4 mg IVP Q6H PRN PRN Reason: NAUSEA AND VOMITING Last Admin: 04/21/20 16:55 Dose: 4 mg Documented by: Sevelamer Carbonate (Renvela) 2,400 mg PO TIDWM [facility] Last Admin: 04/22/20 18:43 Dose: 2,400 mg Documented by: Vitals/I&O/Wt Last Vital Signs Temp 98.3 F 04/22/20 20:00 Pulse 73 04/22/20 20:32 Resp 20 H 04/22/20 20:32 BP 127/76 04/22/20 20:00 Pulse Ox 98 04/22/20 20:32 04/22/20 04/22/20 04/22/20 06:59 14:59 22:59 Intake Total 625 / 1655 550 / 550 170 / 720 Output Total 450 / 800 605 / 605 Balance 175 / 855 -55 / -55 170 / 115 Weight last 48 hrs Weight 204 lb 8 oz Physical Exam Narrative: EXAM NARRATIVE: GENERAL: Patient is alert and is on a BiPAP HEENT: Minimal pallor, no icterus or lymphadenopathy. NECK: Trachea appears to be central. No masses noted. No JVD or thyromegaly appreciated. No carotid bruit. RESPIRATORY: Chest is symmetrical. No intercostals muscle retraction or any accessory muscle activation. There is no chest wall tenderness. Breath sounds are heard bilaterally. Diminished intensity of breath sounds in the both bases. Scattered coarse crackles. Occasional expiratory wheeze BREASTS: Deferred. HEART: The PMI could not be palpated. No palpable precordial events. S1 and S2 are normal. No S3 or S4 heard. No pericardial rub or any click heard. ABDOMEN: No vessel pulsations or distention. No tenderness. No organomegaly appreciated. No abdominal bruit. Bowel sounds are normally heard. : Deferred. RECTAL: Deferred. LYMPHATIC: No lymphadenopathy noted in the neck. EXTREMITIES: 1-+ edema both lower extremities. No cyanosis. MUSCULOSKELETAL: No acute joint deformities or swelling SKIN: There are no significant scars or skin rash noted. NEUROPSYCHIATRIC: No obvious neurological deficits. Urinary Catheter Management^: Torres: Cath Placed During This Visit: yes, but has since been removed by the nurse Reason for Continuing Indwelling Catheter: Decision to DC Catheter Urinary Catheter Date of Insertion: 04/22/20 Urinary Catheter Time of Insertion: 08:47 Date Urinary Catheter Removed: 04/21/20 Time Urinary Catheter Discontinued: 17:30 Data : 04/23/20 04:28 04/23/20 04:28 Micro: Microbiology 04/21/20 11:20 Gram Stain - Final Pleural Fluid Anaerobic Culture - Preliminary Body Fluid Culture - Preliminary 04/19/20 16:00 Gram Stain - Final Sputum - Expectorated Sputum Sputum Culture - Final A&P Assessment and plan (1) New onset atrial fibrillation: She has intermittent atrial fibrillation. Currently is in sinus rhythm. Continue on current dose of p.o. amiodarone and metoprolol. Consider starting her on long-term oral anticoagulation, if it is okay with the pulmonary office Status: Acute (2) Acute diastolic heart failure: Heart failure is compensated. Management of fluid status, as per nephrology Status: Acute (3) Pleural effusion: Status post thoracentesis. Currently has chest tube. Status: Acute (4) Metastatic cancer: Patient is on chemotherapy. Seems to be tolerating fairly well. Management as per the oncology service. 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 Currently has no fever. Status: Acute (6) Acute kidney injury: Dialysis as per the nephrology Status: Acute Additional A&P Information Other problems are as outlined before. Attestations Medical Necessity Statement*: Disposition as per the primary Coding Level of Care Code Acute Wool Hanker for [facility] Fwd Diagnoses New onset atrial fibrillation I48.91 Acute diastolic heart failure I50.31 Pleural effusion J90 Metastatic cancer C77.1 Area of secondary neoplastic involvement: lymph node Lymph node location: intrathoracic region Obstructive pneumonia J18.9 Acute kidney injury N17.9
[2020-04-22] MEDS: morphine 4 mg/mL SDV 1 mL 1 MG IVP (20:49)
[2020-04-23] VITALS (17 sets, daily range): BP systolic 103–132; BP diastolic 57–82; PULSE 63–88; RESP 13–25; TEMP 36.3–36.8; O2SAT 87–100
--- NOTE | 2020-04-23 00:30 | PC.NURSE ---
cathflo instilled in chest tube per Dat[facility], CT clamped for 1 HR, placed to suction for 2 HR and now to gravity, continue to monitor
[2020-04-23] MEDS: morphine 4 mg/mL SDV 1 mL 1 MG IVP ×2 (02:43→11:09)
[2020-04-23] MEDS: FUROsemide 100 MG in sodium chloride 0.9% 40 ML IV (02:46)
[2020-04-23] MEDS: piperacillin-tazobactam 3.375 GM in sodium chloride 0.9% (plus) 50 ML IV ×2 (02:46→14:59)
[2020-04-23 04:44] LABS: Basophils % 0.3 %; Eosinophils # 0.1 10^3/uL (0.0-0.8); Eosinophils % 0.6 %; Hematocrit 28.1 % (37.0-47.0); Lymphocytes # 0.6 10^3/uL (0.8-4.8); Lymphocytes % 4.1 %; Mean Corpuscular Hemoglobin 30.6 pg (28.0-34.0); Mean Corpuscular Volume 95.6 fL (81-99); Mean Platelet Volume 11.3 fL (7.4-10.4); Monocytes % 0.3 %; Neutrophils # 14.24 10^3/uL (1.8-7.7); Neutrophils % 93.8 %; Nucleated Red Blood Cells % 0 %; Platelet Count 135 10^3/cmm (130-400); Red Blood Count 2.94 10^6/uL (4.1-5.3); Red Cell Distribution Width 12.9 % (12.1-15.1); White Blood Count 15.2 10^3/uL (4.0-10.0)
[2020-04-23 05:04] LABS: Magnesium 2.4 mg/dL (1.7-2.3)
[2020-04-23 05:05] LABS: Alanine Aminotransferase 15 U/L (0-33); Albumin Level 2.5 g/dL (3.5-5.2); Alkaline Phosphatase 172 IU/L (35-105); Anion Gap 20.3 (5-19); Aspartate Amino Transferase 22 U/L (0-32); Calcium 8.7 mg/dL (8.5-10.5); Carbon Dioxide 24 mmol/L (22-29); Chloride 95 mmol/L (98-107); Globulin 2.6 g/dL (1.3-4.6); Glomerular Filtration Rate 10.4 mL/min (90-130); Glucose 104 mg/dL (65-115); Osmolality Calculated 308 mOsm/kg (285-295); Potassium 4.3 mmol/L (3.5-5.1); Sodium 135 mmol/L (136-145); Total Bilirubin 0.2 mg/dL (0.15-1.2); Total Protein 5.1 g/dL (6.6-8.7)
[2020-04-23 05:09] LABS: Blood Urea Nitrogen 91 mg/dL (8-23); Phosphorus 8.7 mg/dL (2.5-4.5)
[2020-04-23 05:26] LABS: Slide Review Slide Review Perform
[2020-04-23] MEDS: heparin 5,000 unit/mL INJ 1 mL 5000 UNIT SUBCUT (05:34)
--- NOTE | 2020-04-23 06:30 | PC.NURSE ---
spoke to Dr Sanchez regarding chest tube, reported output of 415 after cathflo, CXR ordered
--- NOTE | 2020-04-23 06:32 | XR_ITS ---
WS: [id number] CHEST XRAY TECHNIQUE: Portable chest. CLINICAL INFORMATION: chest tube COMPARISON: April 21, 2020 FINDINGS: Shallow inspiration. Straightening of the pigtail catheter in the right costophrenic angle with tip overlying the right hemidiaphragm. Small right apical pneumothorax. Heart: Cardiomegaly. Right central venous catheter with tip in the right atrium. Right PICC line with tip in the proximal SVC. Lungs: Small bilateral pleural effusions with patchy infiltrates in the lung bases. Mild pulmonary va scular congestion. Bilateral pulmonary metastasis and lymphadenopathy better visualized on prior ches t CT. Bones: Normal visualized bony structures. XR/XR chest 1V portable [id number] IMPRESSION: 1. Straightening of the pigtail catheter with tip over the right hemidiaphragm . Residual small right apical pneumothorax. 2. Right PICC line with tip in the proximal SVC. Right central venous catheter tip in the right atrium. 3. Cardiomegaly with small bilateral pleural effusions and bibasilar infiltrat es left greater than right and no significant change. 4. Bilateral pulmonary metastasis and lymphadenopathy better visualized on chapin or chest CT.
--- NOTE | 2020-04-23 06:52 | P.PN_ITS ---
Subjective Subjective: Interval history: c/o pain by chest tube. remians sob- but improving. made 1.8 l uop w/ lasix drip- poor appetite. Medications: Reviewed: Yes Medication Review Details: Current Medications Acetaminophen (Tylenol) 650 mg PO Q6H PRN PRN Reason: MILD PAIN Last Admin: 04/22/20 02:44 Dose: 650 mg Documented by: Albuterol/Ipratropium (Duoneb) 3 ml INHALATION Q6H PRN PRN Reason: SHORTNESS OF BREATH Last Admin: 04/21/20 20:22 Dose: 3 ml Documented by: Amiodarone HCl (Cordarone) 400 mg PO [facility] Last Admin: 04/22/20 20:44 Dose: 400 mg Documented by: Denture Adhesive (Fixodent) 1 applic DENTAL PRN PRN PRN Reason: denture adhesive Last Admin: 04/14/20 13:27 Dose: 1 applic Documented by: Heparin Sodium (Beef Lung) (Heparin) 5,000 unit SUBCUT Q12H [facility] Last Admin: 04/23/20 05:34 Dose: 5,000 unit Documented by: Piperacillin Sod/Tazobactam (Sod 3.375 gm/ Sodium Chloride) 50 mls @ 12.5 mls/hr IV Q12H [facility] Last Admin: 04/23/20 02:46 Dose: 100 mls/hr Documented by: Furosemide 100 mg/ Sodium (Chloride) 50 mls @ 2.5 mls/hr IV .Q20H [facility]; Protocol Last Titration: 04/23/20 02:56 Dose: 10 mg/hr, 5 mls/hr Documented by: Metoprolol Tartrate (Lopressor) 75 mg PO BID [facility] Last Admin: 04/22/20 18:42 Dose: 75 mg Documented by: Morphine Sulfate (Morphine) 1 mg IVP Q6H PRN PRN Reason: SEVERE PAIN Last Admin: 04/23/20 02:43 Dose: 1 mg Documented by: Nystatin (Nystatin) 500,000 unit PO QID [facility] Last Admin: 04/22/20 20:44 Dose: 500,000 unit Documented by: Ondansetron HCl (Zofran) 4 mg IVP Q6H PRN PRN Reason: NAUSEA AND VOMITING Last Admin: 04/21/20 16:55 Dose: 4 mg Documented by: Sevelamer Carbonate (Renvela) 2,400 mg PO TIDWM [facility] Last Admin: 04/22/20 18:43 Dose: 2,400 mg Documented by: Vitals/I&O/Wt Last Vital Signs Temp 97.4 F L 04/23/20 04:00 Pulse 68 04/23/20 06:00 Resp 13 04/23/20 06:00 BP 132/82 04/23/20 06:00 Pulse Ox 93 04/23/20 06:00 04/22/20 04/22/20 04/23/20 14:59 22:59 06:59 Intake Total 550 / 550 199 / 749 484.500 / 1233.500 Output Total 605 / 605 500 / 1105 715 / 1820 Balance -55 / -55 -301 / -356 -230.500 / -586.500 Weight last 48 hrs Weight 92.76 kg Physical Exam Narrative: EXAM NARRATIVE: uncomfortable, breathing improving, vs noted heent- nc/at, eomi neck supple, rt ij temp dialysis catheter lung pigtail catheter air movement improving, still w/ crackles b/l hear reg, +NATHEN abd soft, nt, nd, +BS ext b/l edema neuro- a,a,o x 3 pulses + b/l Urinary Catheter Management^: Torres: Cath Placed During This Visit: yes, but has since been removed by the nurse Reason for Continuing Indwelling Catheter: Decision to DC Catheter Urinary Catheter Date of Insertion: 04/22/20 Urinary Catheter Time of Insertion: 08:47 Date Urinary Catheter Removed: 04/21/20 Time Urinary Catheter Discontinued: 17:30 Data : 04/23/20 04:28 04/23/20 04:28 Micro: Microbiology 04/21/20 11:20 Gram Stain - Final Pleural Fluid Anaerobic Culture - Preliminary Body Fluid Culture - Preliminary 04/19/20 16:00 Gram Stain - Final Sputum - Expectorated Sputum Sputum Culture - Final A&P Additional A&P Information 64 yr old female 1. Acute kidney injury, oliguric, on hemodialysis, last HD 04/20/20- uop improved -s/p thoracentesis -good uop w/ lasix drip- however, bun/ c rising- hold lasix today- hd then can restart lasix and monitor for renal recovery. 2. Hyperphosphatemia- HD and non - ca based binder 3. Metastatic Small Cell lung cancer, received Etoposide and Cisplatin, bilateral pleural effusions 4. Post obstructive pneumonia 5. Atrial fibrillation- now in NSR 6. anemia from cancer 7. leukocytosis Attestations Medical Necessity Statement*: met small cell lung ca, resp distress, DIOINSIO Time Spent in Patient Care: 16 - 35 minutes Coding Level of Care Code Acute Tool And Die Technician for [facility]
[2020-04-23] MEDS: ipratropium-albuterol 3 mL Neb INHALATION ×3 (07:30→20:50)
--- NOTE | 2020-04-23 07:35 | PC.NURSE ---
pt sitting up resting in bed. chest tube site inspected and drainage marked. vitals taken, assessment performed. lasix gtt turned off per order. pt denied any needs at this time. call light in reach, will continue to monitor.
--- NOTE | 2020-04-23 09:47 | PM.PN ---
Subjective Subjective: Interval history: No acute events overnight. She is still requiring 5 to 6 L oxygen via nasal cannula. Chest tube has drained total 2.2 L since insertion. Bedside ultrasound done today for pleural effusion evaluation has shown minimum pleural effusion. Renal is planning to dialyze her today. Other vitals and labs have been reviewed. Medications: Reviewed: Yes Medication Review Details: Current Medications Acetaminophen (Tylenol) 650 mg PO Q6H PRN PRN Reason: MILD PAIN Last Admin: 04/22/20 02:44 Dose: 650 mg Documented by: Albuterol/Ipratropium (Duoneb) 3 ml INHALATION Q6H PRN PRN Reason: SHORTNESS OF BREATH Last Admin: 04/21/20 20:22 Dose: 3 ml Documented by: Amiodarone HCl (Cordarone) 400 mg PO [facility] Last Admin: 04/22/20 20:44 Dose: 400 mg Documented by: Denture Adhesive (Fixodent) 1 applic DENTAL PRN PRN PRN Reason: denture adhesive Last Admin: 04/14/20 13:27 Dose: 1 applic Documented by: Heparin Sodium (Beef Lung) (Heparin) 5,000 unit SUBCUT Q12H [facility] Last Admin: 04/23/20 05:34 Dose: 5,000 unit Documented by: Piperacillin Sod/Tazobactam (Sod 3.375 gm/ Sodium Chloride) 50 mls @ 12.5 mls/hr IV Q12H [facility] Last Admin: 04/23/20 02:46 Dose: 100 mls/hr Documented by: Furosemide 100 mg/ Sodium (Chloride) 50 mls @ 2.5 mls/hr IV .Q20H [facility]; Protocol Last Titration: 04/23/20 02:56 Dose: 10 mg/hr, 5 mls/hr Documented by: Metoprolol Tartrate (Lopressor) 75 mg PO BID [facility] Last Admin: 04/22/20 18:42 Dose: 75 mg Documented by: Morphine Sulfate (Morphine) 1 mg IVP Q6H PRN PRN Reason: SEVERE PAIN Last Admin: 04/23/20 02:43 Dose: 1 mg Documented by: Nystatin (Nystatin) 500,000 unit PO QID [facility] Last Admin: 04/22/20 20:44 Dose: 500,000 unit Documented by: Ondansetron HCl (Zofran) 4 mg IVP Q6H PRN PRN Reason: NAUSEA AND VOMITING Last Admin: 04/21/20 16:55 Dose: 4 mg Documented by: Sevelamer Carbonate (Renvela) 2,400 mg PO TIDWM [facility] Last Admin: 04/22/20 18:43 Dose: 2,400 mg Documented by: Vitals/I&O/Wt Last Vital Signs Temp 97.4 F L 04/23/20 04:00 Pulse 73 04/23/20 07:39 Resp 23 H 04/23/20 07:39 BP 128/74 04/23/20 07:39 Pulse Ox 97 04/23/20 07:39 04/22/20 04/23/20 04/23/20 22:59 06:59 14:59 Intake Total 199 / 749 484.500 / 1233.500 100 / 100 Output Total 500 / 1105 715 / 1820 Balance -301 / -356 -230.500 / -586.500 100 / 100 Weight last 48 hrs Weight 92.76 kg Physical Exam Narrative: EXAM NARRATIVE: heent- nc/at, eomi neck supple, rt ij tmp dialysis catheter lung pigtail catheter air entry has improved on the rt side.Now whezzing, ronchii, minimal basal crackles b/l heart reg, +NATHEN abd soft, nt, nd, +BS ext b/l edema neuro- a,a,o x 3 pulses + b/l Urinary Catheter Management^: Torres: Cath Placed During This Visit: yes, but has since been removed by the nurse Reason for Continuing Indwelling Catheter: Acute Urinary Retention or Obstruction Urinary Catheter Date of Insertion: 04/22/20 Urinary Catheter Time of Insertion: 08:47 Date Urinary Catheter Removed: 04/21/20 Time Urinary Catheter Discontinued: 17:30 Data : 04/23/20 04:28 04/23/20 04:28 Micro: Microbiology 04/21/20 11:20 Gram Stain - Final Pleural Fluid Anaerobic Culture - Preliminary Body Fluid Culture - Preliminary 04/19/20 16:00 Gram Stain - Final Sputum - Expectorated Sputum Sputum Culture - Final A&P Assessment and plan (1) Metastatic lung cancer (metastasis from lung to other site): Status: Acute Qualifiers: Laterality: right Qualified Code(s): C34.91 - Malignant neoplasm of unspecified part of right bronchus or lung (2) ATN (acute tubular necrosis): Status: Acute (3) Hyponatremia: Status: Acute (4) New onset of congestive heart failure: Status: Acute (5) Abnormal transaminases: Status: Acute (6) Pneumonia: Status: Acute Qualifiers: Pneumonia type: due to unspecified organism Laterality: right Lung location: unspecified part of lung Qualified Code(s): J18.9 - Pneumonia, unspecified organism (7) Leukocytosis: Status: Acute Qualifiers: Leukocytosis type: unspecified Qualified Code(s): D72.829 - Elevated white blood cell count, unspecified (8) Sepsis with acute hypoxic respiratory failure: Status: Acute Qualifiers: Sepsis type: sepsis due to unspecified organism Severe sepsis shock status: without septic shock Qualified Code(s): A41.9 - Sepsis, unspecified organism; R65.20 - Severe sepsis without septic shock; J96.01 - Acute respiratory failure with hypoxia Additional A&P Information # Metastatic small cell lung cancer Pathology confirmed small cell lung cancer neuroendocrine differentiation Currently on chemotherapy with carboplatin and etoposide, completed day 3 cycle 1 # Hypoxic respiratory failure, multifactorial related to likely lung malignancy, B/L pleural effusions, increasing as of most recent CXR, increasing pulmonary vascular congestion and pulmonary edema, post obstructive pneumonia from bronchial obstruction. Requiring BiPAP at nighttime, on high flow nasal cannula in the day. Stable oxygen requirements for now. CAT scan yesterday showed worsened effusion and now also with loculation therefore a complex parapneumonic effusion versus empyema cannot be excluded. She is to undergo thoracentesis with pulmonary today. #DIONISIO most likely secondary to ATN. Creatinine peak at 5, continues to improve today. Started on hemodialysis. Patient was oliguric but today has been made 600 .cc urine output on Lasix drip. no dialysis done today. Patient though maintaining O2 sats and states breathing is better. we will go ahead and administer 40 mg of IV Lasix and monitor urine output. Torres to monitor I/O, daily weight Appreciate pulmonary and renal recommendations #Sepsis, present on admission, now resolved. Fluid gram stain and cx negative to date from thoracentesis on 04/11. Blood culture negative on admission. Patient is not febrile. Leukocytosis is persisting, may be contributed by obstructive process by endobronchial tumor. CAT scan repeated yesterday due to suspicion of complex effusion, and it did reveal multiloculated pleural effusion, possibly empyema.the study was noncontrast. Patient has been on a prolonged course of antibiotics up until now, meropenem and vancomycin, doxycycline earlier in the course of admission. These have been changed to Zosyn. Did not believe this to be an antibiotic failure, rather shows likely to be source control. Will await further cultures from thoracentesis today to change any antibiotic therapy. # Hyponatremia. 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 Possibly it is secondary to lung disease and malignancy. Appreciate nephrology recommendations # Acute kidney injury. Currently on dialysis,she had approximately 1.8 l uop w/ lasix drip yesterday.Will resume lasix drip post dialysis. montior I/O, daily weight, hemodialysis per renal. # New onset atrial fibrillation with RVR. Heart rate is well controlled now with amiodarone and metoprolol T 75 mg q12 h daily. Will start the patient on Ac with eliquis.2.5 mg q12 h daily # Presumed PE, unable to get a V/Q scan due to inability to lie flat. Discussed with Dr. Jordan, findings appear c/w compression from external lung mass rather than PE, heparin drip discontinued. DVT prophylaxis: eliquis Full code Attestations Medical Necessity Statement*: Patient continues to be in hospital for management of respiratory failure secondary to pneumonia. Coding Level of Care Code Acute Kn[employer] Goods Press Hand for [facility] Diagnoses Metastatic lung cancer (metastasis from lung to other site) C34.91 Laterality: right ATN (acute tubular necrosis) N17.0 Hyponatremia E87.1 New onset of congestive heart failure I50.9 Abnormal transaminases R74.8 Pneumonia J18.9 Pneumonia type: due to unspecified organism Laterality: right Lung location: unspecified part of lung Leukocytosis D72.829 Leukocytosis type: unspecified Sepsis with acute hypoxic respiratory failure A41.9; R65.20; J96.01 Sepsis type: sepsis due to unspecified organism Severe sepsis shock status: without septic shock
[2020-04-23] MEDS: sevelamer 800 mg Tablet 2400 MG PO ×2 (10:24→17:24)
[2020-04-23] MEDS: metoprolol tartrate 50 mg Tablet 75 MG PO ×2 (10:25→17:25)
[2020-04-23] MEDS: amiodarone 200 mg Tablet 400 MG PO ×2 (10:25→20:39)
[2020-04-23] MEDS: nystatin 100,000 unit/mL UDC 5 mL 500000 UNIT PO ×2 (10:25→20:39)
--- NOTE | 2020-04-23 12:49 | PM.PN ---
Subjective Subjective: Interval history: Patient clinically stable requesting the chest tube to be taken out. Total drainage since insertion on 04/21/2020 about 2200 cc. Labs remained stable and patient to get session of dialysis today. Medications: Reviewed: Yes Medication Review Details: Current Medications Acetaminophen (Tylenol) 650 mg PO Q6H PRN PRN Reason: MILD PAIN Last Admin: 04/22/20 02:44 Dose: 650 mg Documented by: Albuterol/Ipratropium (Duoneb) 3 ml INHALATION Q6H PRN PRN Reason: SHORTNESS OF BREATH Last Admin: 04/21/20 20:22 Dose: 3 ml Documented by: Amiodarone HCl (Cordarone) 400 mg PO [facility] Last Admin: 04/22/20 20:44 Dose: 400 mg Documented by: Denture Adhesive (Fixodent) 1 applic DENTAL PRN PRN PRN Reason: denture adhesive Last Admin: 04/14/20 13:27 Dose: 1 applic Documented by: Heparin Sodium (Beef Lung) (Heparin) 5,000 unit SUBCUT Q12H [facility] Last Admin: 04/23/20 05:34 Dose: 5,000 unit Documented by: Piperacillin Sod/Tazobactam (Sod 3.375 gm/ Sodium Chloride) 50 mls @ 12.5 mls/hr IV Q12H [facility] Last Admin: 04/23/20 02:46 Dose: 100 mls/hr Documented by: Furosemide 100 mg/ Sodium (Chloride) 50 mls @ 2.5 mls/hr IV .Q20H [facility]; Protocol Last Titration: 04/23/20 02:56 Dose: 10 mg/hr, 5 mls/hr Documented by: Metoprolol Tartrate (Lopressor) 75 mg PO BID [facility] Last Admin: 04/22/20 18:42 Dose: 75 mg Documented by: Morphine Sulfate (Morphine) 1 mg IVP Q6H PRN PRN Reason: SEVERE PAIN Last Admin: 04/23/20 02:43 Dose: 1 mg Documented by: Nystatin (Nystatin) 500,000 unit PO QID [facility] Last Admin: 04/22/20 20:44 Dose: 500,000 unit Documented by: Ondansetron HCl (Zofran) 4 mg IVP Q6H PRN PRN Reason: NAUSEA AND VOMITING Last Admin: 04/21/20 16:55 Dose: 4 mg Documented by: Sevelamer Carbonate (Renvela) 2,400 mg PO TIDWM [facility] Last Admin: 04/22/20 18:43 Dose: 2,400 mg Documented by: Vitals/I&O/Wt Last Vital Signs Temp 97.4 F L 04/23/20 04:00 Pulse 73 04/23/20 07:39 Resp 20 H 04/23/20 11:09 BP 128/74 04/23/20 07:39 Pulse Ox 97 04/23/20 07:39 04/22/20 04/23/20 04/23/20 22:59 06:59 14:59 Intake Total 199 / 749 484.500 / 1233.500 130.333 / 130.333 Output Total 500 / 1105 715 / 1820 Balance -301 / -356 -230.500 / -586.500 130.333 / 130.333 Weight last 48 hrs Weight 204 lb 8 oz Physical Exam Narrative: EXAM NARRATIVE: General: alert, NAD HEENT: conj clear, EOMI, PERRL, mmm, Neck: supple, no meningismus Heme: no cervical LAP Pulmonary: Improved breath sounds on right lower lung, 14 [address] chest tube in place connected to low suction Cardiovascular: rrr, nl s1s2, no mrg Abdomen: soft, nt, nd, no r/g, bs+ Extremities: pulses +, 2+ pedal edema, no c/c : no CVA tenderness Skin: intact, no rash MSK: no back or neck pain Neurologic: grossly intact Urinary Catheter Management^: Torres: Cath Placed During This Visit: yes, but has since been removed by the nurse Reason for Continuing Indwelling Catheter: Acute Urinary Retention or Obstruction Urinary Catheter Date of Insertion: 04/22/20 Urinary Catheter Time of Insertion: 08:47 Date Urinary Catheter Removed: 04/21/20 Time Urinary Catheter Discontinued: 17:30 Data : 04/23/20 04:28 04/23/20 04:28 Micro: Microbiology 04/21/20 11:20 Gram Stain - Final Pleural Fluid Anaerobic Culture - Preliminary Body Fluid Culture - Preliminary 04/19/20 16:00 Gram Stain - Final Sputum - Expectorated Sputum Sputum Culture - Final A&P Assessment and plan (1) Sepsis with acute hypoxic respiratory failure: Status: Acute Qualifiers: Sepsis type: sepsis due to unspecified organism Severe sepsis shock status: without septic shock Qualified Code(s): A41.9 - Sepsis, unspecified organism; R65.20 - Severe sepsis without septic shock; J96.01 - Acute respiratory failure with hypoxia (2) Metastatic lung cancer (metastasis from lung to other site): Status: Acute Qualifiers: Laterality: right Qualified Code(s): C34.91 - Malignant neoplasm of unspecified part of right bronchus or lung (3) Leukocytosis: Status: Acute Qualifiers: Leukocytosis type: unspecified Qualified Code(s): D72.829 - Elevated white blood cell count, unspecified (4) Recurrent right pleural effusion: Status: Acute (5) Acute kidney injury: Status: Acute #Hypoxic respiratory failure in patient with metastatic small cell cancer and recurrent large right pleural effusion #Recurrent large right pleural effusion likely secondary to metastatic lung cancer/fluid overload from acute kidney injury requiring dialysis -S/p thoracentesis and drained 1100 cc on 04/11/2020 -Bilateral pleural effusions persisted and patient was in renal failure requiring dialysis -Even after a few sessions of dialysis pleural effusions did not improve and meanwhile patient leukocytosis worsened and there was concern for empyema -CT 04/20/2020 showed worsening right pleural effusion possible loculations -Hospitalist consulted me to repeat thoracentesis/chest tube/Pleurx catheter to rule out empyema -S/p right thoracentesis 04/21/2020 and 1000 cc hemorrhagic fluid drained during insertion -Pleural fluid suggestive of exudative fluid but no empyema-likely of malignant effusion -On 04/22/2020: Drainage catheter connected to low-dose suction and obtained about 800 cc -Administered 10 mg TPA yesterday night and able to drain 400 cc more -Today morning 04/23/2020: Bedside ultrasound showed very minimal effusion: administered additional 10 mg but no additional drinage. - However Morning chest x ray showed small right apical pneumothorax - Recommend to DC suction and connect to under water seal and will repeat Chest xray in 24 hrs to see resolution of pneumothorax before taking out the pigtail -If pleural effusion recurs then patient would eventually need Pleurx catheter for recurrent malignant pleural effusion -Dialysis schedule as per renal Medical condition, labs investigations, imaging everything reviewed in detail and explained to patient above plan of care. Patient verbalized understanding and agreed with the plan and procedure. Attestations Medical Necessity Statement*: Small pneumothorax in pt recently diagonsed with metastatic small cell ca on chemotherapy with recurrent right pleural effusion and requiring Dialysis for DIONISIO. Time Spent in Patient Care: Greater than 35 minutes (>than 50% of time spent in counselling and/or direct pt care on unit). Critical Care Time: Critical Care Time (min): 40 Coding Level of Care Code Established Pt Acute Hypoid Gear Tester for [facility] Patient Type Established History Comprehensive Exam Comprehensive Medical Decision Making High Complexity Diagnoses Sepsis with acute hypoxic respiratory failure A41.9; R65.20; J96.01 Sepsis type: sepsis due to unspecified organism Severe sepsis shock status: without septic shock Metastatic lung cancer (metastasis from lung to other site) C34.91 Laterality: right Leukocytosis D72.829 Leukocytosis type: unspecified Recurrent right pleural effusion J90 Acute kidney injury N17.9 Time Spent (min) 40
--- NOTE | 2020-04-23 13:47 | PC.NURSE ---
pt returned from dialysis. vitals taken at this time. pt refusing to eat lunch, which indicated the refused medication. assessment performed. catheter emptied. call light in reach, will continue to monitor.
--- NOTE | 2020-04-23 17:05 | PM.PN ---
Subjective Subjective: Interval history: Patient continues to drain fluid from the right chest tube. Telemetry shows sinus rhythm. Complaining of pain at the chest tube site. No fever or chills. No cough. Scheduled to have hemodialysis today. Medications: Reviewed: Yes Medication Review Details: Current Medications Acetaminophen (Tylenol) 650 mg PO Q6H PRN PRN Reason: MILD PAIN Last Admin: 04/22/20 02:44 Dose: 650 mg Documented by: Albuterol/Ipratropium (Duoneb) 3 ml INHALATION Q6H PRN PRN Reason: SHORTNESS OF BREATH Last Admin: 04/23/20 15:01 Dose: 3 ml Documented by: Amiodarone HCl (Cordarone) 400 mg PO [facility] Last Admin: 04/23/20 10:25 Dose: 400 mg Documented by: Apixaban (Eliquis) 2.5 mg PO BID [facility] Denture Adhesive (Fixodent) 1 applic DENTAL PRN PRN PRN Reason: denture adhesive Last Admin: 04/14/20 13:27 Dose: 1 applic Documented by: Piperacillin Sod/Tazobactam (Sod 3.375 gm/ Sodium Chloride) 50 mls @ 12.5 mls/hr IV Q12H [facility] Last Admin: 04/23/20 14:59 Dose: 100 mls/hr Documented by: Metoprolol Tartrate (Lopressor) 75 mg PO BID [facility] Last Admin: 04/23/20 10:25 Dose: 75 mg Documented by: Morphine Sulfate (Morphine) 1 mg IVP Q6H PRN PRN Reason: SEVERE PAIN Last Admin: 04/23/20 11:09 Dose: 1 mg Documented by: Nystatin (Nystatin) 500,000 unit PO QID [facility] Last Admin: 04/23/20 16:03 Dose: Not Given Documented by: Ondansetron HCl (Zofran) 4 mg IVP Q6H PRN PRN Reason: NAUSEA AND VOMITING Last Admin: 04/21/20 16:55 Dose: 4 mg Documented by: Oxycodone/Acetaminophen (Percocet 10-325 Mg) 1 tab PO Q4H PRN PRN Reason: SEVERE PAIN Oxycodone/Acetaminophen (Percocet 5-325 Mg) 1 tab PO Q4H PRN PRN Reason: MODERATE PAIN Sevelamer Carbonate (Renvela) 2,400 mg PO TIDWM [facility] Last Admin: 04/23/20 14:25 Dose: Not Given Documented by: Vitals/I&O/Wt Last Vital Signs Temp 97.4 F L 04/23/20 04:00 Pulse 73 04/23/20 15:17 Resp 18 04/23/20 15:17 BP 106/61 04/23/20 12:00 Pulse Ox 96 04/23/20 15:17 04/23/20 04/23/20 04/23/20 06:59 14:59 22:59 Intake Total 534.500 / 1283.500 130.333 / 130.333 120 / 250.333 Output Total 715 / 1820 350 / 350 Balance -180.500 / -536.500 -219.667 / -219.667 120 / -99.667 Weight last 48 hrs Weight 204 lb 8 oz Physical Exam Narrative: EXAM NARRATIVE: GENERAL: Patient is alert and is on a BiPAP HEENT: Minimal pallor, no icterus or lymphadenopathy. NECK: Trachea appears to be central. No masses noted. No JVD or thyromegaly appreciated. No carotid bruit. RESPIRATORY: Chest is symmetrical. No intercostals muscle retraction or any accessory muscle activation. There is no chest wall tenderness. Breath sounds are heard bilaterally. Diminished intensity of breath sounds in the both bases. Scattered coarse crackles. Occasional expiratory wheeze BREASTS: Deferred. HEART: The PMI could not be palpated. No palpable precordial events. S1 and S2 are normal. No S3 or S4 heard. No pericardial rub or any click heard. ABDOMEN: No vessel pulsations or distention. No tenderness. No organomegaly appreciated. No abdominal bruit. Bowel sounds are normally heard. : Deferred. RECTAL: Deferred. LYMPHATIC: No lymphadenopathy noted in the neck. EXTREMITIES: 1-+ edema both lower extremities. No cyanosis. MUSCULOSKELETAL: No acute joint deformities or swelling SKIN: There are no significant scars or skin rash noted. NEUROPSYCHIATRIC: No obvious neurological deficits. Urinary Catheter Management^: Torres: Cath Placed During This Visit: yes, but has since been removed by the nurse Reason for Continuing Indwelling Catheter: Acute Urinary Retention or Obstruction Urinary Catheter Date of Insertion: 04/22/20 Urinary Catheter Time of Insertion: 08:47 Date Urinary Catheter Removed: 04/21/20 Time Urinary Catheter Discontinued: 17:30 Data : 04/25/20 04:06 04/25/20 04:06 Micro: Microbiology 04/21/20 11:20 Gram Stain - Final Pleural Fluid Anaerobic Culture - Preliminary Body Fluid Culture - Preliminary 04/19/20 16:00 Gram Stain - Final Sputum - Expectorated Sputum Sputum Culture - Final A&P Assessment and plan (1) New onset atrial fibrillation: She has intermittent atrial fibrillation. Currently is in sinus rhythm. Continue on current dose of p.o. amiodarone and metoprolol. Seems to be tolerating the Eliquis so far well Status: Acute (2) Acute diastolic heart failure: Heart failure is compensated. Management of fluid status, as per nephrology Status: Acute (3) Pleural effusion: Recurrent pleural effusion, currently on chest tube Status: Acute (4) Metastatic cancer: Patient is on chemotherapy. Seems to be tolerating fairly well. Management as per the oncology service. 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 Currently has no fever. Status: Acute (6) Acute kidney injury: Dialysis as per the nephrology Status: Acute Additional A&P Information Since her cardiac status seems to be fairly stable, may not require any specific intervention at this time. Advised to continue on the current measures. Attestations Medical Necessity Statement*: Patient requires continued hospital stay for close monitoring and further management Coding Level of Care Code Acute Scholarship Counselor for [facility] Diagnoses New onset atrial fibrillation I48.91 Acute diastolic heart failure I50.31 Pleural effusion J90 Metastatic cancer C77.1 Area of secondary neoplastic involvement: lymph node Lymph node location: intrathoracic region Obstructive pneumonia J18.9 Acute kidney injury N17.9
[2020-04-23] MEDS: apixaban 5 mg Tablet 2.5 MG PO (17:25)
--- NOTE | 2020-04-23 19:40 | PC.NURSE ---
dr cuevas at bedside. verbal order to give tpa, let dwell for two hours then salon supervisor to suction. tpa administered and dwelling when patient went to dialysis. at the two hour aleida, around 1045 pt hooked up to suction per dr order. around 1600 dr at bedside again. decision to leave chest tube in and monitor pt over night with chest xray in the morning to reassess if the chest tube can come out. will continue to monitor pt.
--- NOTE | 2020-04-23 19:51 | PC.NURSE ---
1100 while patient in dialysis reported 10/10 pain at chest tube site. nurse took prn medication to pt. administered per order. when armaan came to visit pt, pt stated make sure those pain meds are on my record because i cant go through another night like last night. nurse informed pt that she would ask hospitalist for another pain medication tonight. muniz gave verbal order. order put in, pt informed of new medication being ordered for pain tonight. will continue to monitor pt.
--- NOTE | 2020-04-23 20:17 | PC.NURSE ---
3420 Reported patient concerns about pain medications and 1mg of morphine not being enough to help with her pain to Dr muniz Patient stated 1 mg of morphine is not enough to help with my pain and I will not have another night like I did last night you will speak with the doctor Dr muniz gave instructions given to order percocet 5/325 mg PO q4h for moderate pain and percocet 10/325 q4h for sever pain not to be alternated
--- NOTE | 2020-04-23 20:44 | PC.NURSE ---
Patient's oxygen saturation is currently 87 percent on 6 L NC. Patient is refusing Bipap. RT notified and is coming to see her. Patient is asymptomatic. Continuous pulse ox placed on patient for closer monitoring.
[2020-04-24] VITALS (13 sets, daily range): BP systolic 90–127; BP diastolic 47–77; PULSE 59–91; RESP 18–29; TEMP 36.1–36.7; O2SAT 90–100
[2020-04-24] MEDS: piperacillin-tazobactam 3.375 GM in sodium chloride 0.9% (plus) 50 ML IV ×2 (03:33→13:39)
--- NOTE | 2020-04-24 05:02 | PC.NURSE ---
Patient is currently on 6 L NC. Patient tired to wear her Bipap a couple of times, but couldn't tolerate for longer than 15-20 minutes at a time. Patient did not wear her Bipap for most of the night. Patient educated about PRN pain medication and states that she does not need any at this time. Will monitor.
[2020-04-24 05:21] LABS: Basophils # 0.1 10^3/uL (0.0-0.1); Basophils % 0.6 %; Eosinophils # 0.1 10^3/uL (0.0-0.8); Eosinophils % 0.8 %; Hematocrit 26.8 % (37.0-47.0); Hemoglobin 8.6 g/dL (11.5-15.3); Lymphocytes # 0.6 10^3/uL (0.8-4.8); Lymphocytes % 5.2 %; Mean Corpuscular HGB Conc 32.1 g/dL (30.0-36.0); Mean Corpuscular Hemoglobin 30.9 pg (28.0-34.0); Mean Corpuscular Volume 96.4 fL (81-99); Mean Platelet Volume 11.6 fL (7.4-10.4); Monocytes % 0.2 %; Neutrophils # 10.36 10^3/uL (1.8-7.7); Neutrophils % 90.9 %; Nucleated Red Blood Cells % 0 %; Platelet Count 118 10^3/cmm (130-400); Red Blood Count 2.78 10^6/uL (4.1-5.3); Red Cell Distribution Width 12.7 % (12.1-15.1); White Blood Count 11.4 10^3/uL (4.0-10.0)
[2020-04-24 05:48] LABS: Slide Review Slide Review Perform
[2020-04-24 05:55] LABS: Alanine Aminotransferase 16 U/L (0-33); Albumin Level 2.4 g/dL (3.5-5.2); Alkaline Phosphatase 168 IU/L (35-105); Anion Gap 17.9 (5-19); Aspartate Amino Transferase 22 U/L (0-32); Blood Urea Nitrogen 42 mg/dL (8-23); Calcium 8.5 mg/dL (8.5-10.5); Carbon Dioxide 25 mmol/L (22-29); Chloride 99 mmol/L (98-107); Globulin 2.9 g/dL (1.3-4.6); Glomerular Filtration Rate 17.9 mL/min (90-130); Glucose 133 mg/dL (65-115); Magnesium 2.2 mg/dL (1.7-2.3); Osmolality Calculated 298 mOsm/kg (285-295); Phosphorus 5.1 mg/dL (2.5-4.5); Potassium 3.9 mmol/L (3.5-5.1); Sodium 138 mmol/L (136-145); Total Bilirubin 0.3 mg/dL (0.15-1.2); Total Protein 5.3 g/dL (6.6-8.7)
--- NOTE | 2020-04-24 06:00 | XR_ITS ---
WS: [id number] XR chest 1V portable [id number] REASON FOR EXAM: DOCTOR REQUEST/CHEST TUBE FINDINGS: Right internal jugular vein large-bore catheter with the tip at the atrial level unchanged compared t o previous examination. Right arm PICC line in place with the tip just above the left atrial level un changed. Interstitial changes seen on the examination of 04/23/2020, felt to represent interstitial edema, are resolving. There continues to be more confluent infiltrative density in both lung bases most notably on the left. Likely there are bilateral pleural effusions. XR/XR chest 1V portable [id number] IMPRESSION: Abnormal chest with interval change as above.
--- NOTE | 2020-04-24 07:04 | P.PN_ITS ---
Subjective Subjective: Interval history: still c/o pain by chest tube. feels better after HD yesterday. uop decreased. poor appetite. Medications: Reviewed: Yes Medication Review Details: Current Medications Acetaminophen (Tylenol) 650 mg PO Q6H PRN PRN Reason: MILD PAIN Last Admin: 04/22/20 02:44 Dose: 650 mg Documented by: Albuterol/Ipratropium (Duoneb) 3 ml INHALATION Q6H PRN PRN Reason: SHORTNESS OF BREATH Last Admin: 04/23/20 20:50 Dose: 3 ml Documented by: Amiodarone HCl (Cordarone) 400 mg PO [facility] Last Admin: 04/23/20 20:39 Dose: 400 mg Documented by: Apixaban (Eliquis) 2.5 mg PO BID [facility] Last Admin: 04/23/20 17:25 Dose: 2.5 mg Documented by: Denture Adhesive (Fixodent) 1 applic DENTAL PRN PRN PRN Reason: denture adhesive Last Admin: 04/14/20 13:27 Dose: 1 applic Documented by: Piperacillin Sod/Tazobactam (Sod 3.375 gm/ Sodium Chloride) 50 mls @ 12.5 mls/hr IV Q12H [facility] Last Admin: 04/24/20 03:33 Dose: 12.5 mls/hr Documented by: Metoprolol Tartrate (Lopressor) 75 mg PO BID [facility] Last Admin: 04/23/20 17:25 Dose: 75 mg Documented by: Morphine Sulfate (Morphine) 1 mg IVP Q6H PRN PRN Reason: SEVERE PAIN Last Admin: 04/23/20 11:09 Dose: 1 mg Documented by: Nystatin (Nystatin) 500,000 unit PO QID [facility] Last Admin: 04/23/20 20:39 Dose: 500,000 unit Documented by: Ondansetron HCl (Zofran) 4 mg IVP Q6H PRN PRN Reason: NAUSEA AND VOMITING Last Admin: 04/21/20 16:55 Dose: 4 mg Documented by: Oxycodone/Acetaminophen (Percocet 10-325 Mg) 1 tab PO Q4H PRN PRN Reason: SEVERE PAIN Oxycodone/Acetaminophen (Percocet 5-325 Mg) 1 tab PO Q4H PRN PRN Reason: MODERATE PAIN Sevelamer Carbonate (Renvela) 2,400 mg PO TIDWM [facility] Last Admin: 04/23/20 17:24 Dose: 2,400 mg Documented by: Vitals/I&O/Wt Last Vital Signs Temp 97.4 F L 04/24/20 03:29 Pulse 69 04/24/20 03:29 Resp 20 H 04/24/20 03:29 BP 112/69 04/24/20 03:29 Pulse Ox 90 04/24/20 03:29 04/23/20 04/24/20 04/24/20 22:59 06:59 14:59 Intake Total 290 / 420.333 400 / 820.333 Output Total 200 / 550 275 / 825 Balance 90 / -129.667 125 / -4.667 Physical Exam 2 Narrative: EXAM NARRATIVE: remains uncomfortable, breathing improving, vs noted- on 6l nc 02 heent- nc/at, eomi neck supple, rt ij temp dialysis catheter lung pigtail catheter crackles b/l hear reg, +NATHEN abd soft, nt, nd, +BS ext b/l edema neuro- a,a,o x 3 pulses + b/l Urinary Catheter Management^: Torres: Cath Placed During This Visit: yes, but has since been removed by the nurse Reason for Continuing Indwelling Catheter: Acute Urinary Retention or Obstruction Urinary Catheter Date of Insertion: 04/22/20 Urinary Catheter Time of Insertion: 08:47 Date Urinary Catheter Removed: 04/21/20 Time Urinary Catheter Discontinued: 17:30 Data : 04/24/20 04:15 04/24/20 04:15 Micro: Microbiology 04/21/20 11:20 Gram Stain - Final Pleural Fluid Anaerobic Culture - Preliminary Body Fluid Culture - Preliminary A&P Additional A&P Information 64 yr old female 1. Acute kidney injury, oliguric, on hemodialysis, last HD 04/23/20 - uop decreased w/ HD -restart lasix -s/p thoracentesis - monitor for renal recovery. i am concerned that she might be dialysis dependent 2. Hyperphosphatemia- HD and non - ca based binder 3. Metastatic Small Cell lung cancer, received Etoposide and Cisplatin, bilate ral pleural effusions 4. Post obstructive pneumonia -s/p thoracentesis remains sob -small pneumothorax, management as per pulm -cxr w/ small b/l pleural effusions and b/l mets and lymphadenopathy -sob likely from cancer, more than volume overload 5. Atrial fibrillation- now in NSR 6. anemia from cancer 7. 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
[2020-04-24] MEDS: nystatin 100,000 unit/mL UDC 5 mL 500000 UNIT PO ×4 (08:50→21:00)
[2020-04-24] MEDS: oxyCODONE-APAP 5-325 mg Tablet 1 TAB PO ×2 (08:51→13:40)
[2020-04-24] MEDS: FUROsemide 10 mg/mL SDV 4mL 40 MG IVP ×2 (08:51→21:00)
[2020-04-24] MEDS: amiodarone 200 mg Tablet 400 MG PO ×2 (08:52→21:00)
[2020-04-24] MEDS: apixaban 5 mg Tablet 2.5 MG PO ×2 (08:52→17:37)
[2020-04-24] MEDS: metoprolol tartrate 50 mg Tablet 75 MG PO ×2 (08:52→17:37)
[2020-04-24] MEDS: sevelamer 800 mg Tablet 2400 MG PO ×3 (08:52→17:37)
--- NOTE | 2020-04-24 09:27 | PM.PN ---
Subjective Subjective: Interval history: No acute events overnight. No pneumothorax present on today chest x-ray. Vitals and labs have been reviewed. Chest tube output less than 100 cc in last 24 hours. chest tube removed today. Vitals/I&O/Wt Last Vital Signs Temp 98.1 F 04/24/20 08:00 Pulse 66 04/24/20 08:00 Resp 18 04/24/20 08:51 BP 116/69 04/24/20 08:00 Pulse Ox 96 04/24/20 08:00 04/23/20 04/24/20 04/24/20 22:59 06:59 14:59 Intake Total 290 / 420.333 400 / 820.333 360 / 360 Output Total 200 / 550 275 / 825 Balance 90 / -129.667 125 / -4.667 360 / 360 Physical Exam Narrative: EXAM NARRATIVE: EXAM NARRATIVE: General: alert, NAD HEENT: conj clear, EOMI, PERRL, mmm, Neck: supple, no meningismus Heme: no cervical LAP Pulmonary: Improved breath sounds on right lower lung Cardiovascular: rrr, nl s1s2, no mrg Abdomen: soft, nt, nd, no r/g, bs+ Extremities: pulses +, 2+ pedal edema, no c/c : no CVA tenderness Skin: intact, no rash MSK: no back or neck pain Neurologic: grossly intact Urinary Catheter Management^: Torres: Cath Placed During This Visit: yes, but has since been removed by the nurse Reason for Continuing Indwelling Catheter: Acute Urinary Retention or Obstruction Urinary Catheter Date of Insertion: 04/22/20 Urinary Catheter Time of Insertion: 08:47 Date Urinary Catheter Removed: 04/21/20 Time Urinary Catheter Discontinued: 17:30 Data : 04/24/20 04:15 04/24/20 04:15 Micro: Microbiology 04/21/20 11:20 Gram Stain - Final Pleural Fluid Anaerobic Culture - Preliminary Body Fluid Culture - Preliminary A&P Assessment and plan (1) Sepsis with acute hypoxic respiratory failure: Status: Acute Qualifiers: Sepsis type: sepsis due to unspecified organism Severe sepsis shock status: without septic shock Qualified Code(s): A41.9 - Sepsis, unspecified organism; R65.20 - Severe sepsis without septic shock; J96.01 - Acute respiratory failure with hypoxia (2) Metastatic lung cancer (metastasis from lung to other site): Status: Acute Qualifiers: Laterality: right Qualified Code(s): C34.91 - Malignant neoplasm of unspecified part of right bronchus or lung (3) ATN (acute tubular necrosis): Status: Acute (4) Pneumonia: Status: Acute Qualifiers: Laterality: right Lung location: unspecified part of lung Pneumonia type: due to unspecified organism Qualified Code(s): J18.9 - Pneumonia, unspecified organism (5) Hyponatremia: Status: Acute (6) New onset of congestive heart failure: Status: Acute (7) Abnormal transaminases: Status: Acute (8) Leukocytosis: Status: Acute Qualifiers: Leukocytosis type: unspecified Qualified Code(s): D72.829 - Elevated white blood cell count, unspecified Additional A&P Information # Metastatic small cell lung cancer Pathology confirmed small cell lung cancer neuroendocrine differentiation Currently on chemotherapy with carboplatin and etoposide, completed day 3 cycle 1 # Hypoxic respiratory failure, multifactorial related to likely lung malignancy, B/L pleural effusions, increasing as of most recent CXR, increasing pulmonary vascular congestion and pulmonary edema, post obstructive pneumonia from bronchial obstruction. Requiring BiPAP at nighttime, on high flow nasal cannula in the day. Stable oxygen requirements for now. CAT scan yesterday showed worsened effusion and now also with loculation therefore a complex parapneumonic effusion versus empyema cannot be excluded. She is to undergo thoracentesis with pulmonary today. #DIONISIO most likely secondary to ATN. Creatinine peak at 5, continues to improve today. Started on hemodialysis. Patient was oliguric but has started making urine on lasix. Appreciate pulmonary and renal recommendations #Sepsis, present on admission, now resolved. Fluid gram stain and cx negative to date from thoracentesis on 04/11. Blood culture negative on admission. Patient is not febrile. Leukocytosis is persisting, may be contributed by obstructive process by endobronchial tumor. CAT scan repeated yesterday due to suspicion of complex effusion, and it did reveal multiloculated pleural effusion, possibly empyema.the study was noncontrast. Patient has been on a prolonged course of antibiotics up until now, meropenem and vancomycin, doxycycline earlier in the course of admission. These have been changed to Zosyn. Did not believe this to be an antibiotic failure, rather shows likely to be source control. Will await further cultures from thoracentesis today to change any antibiotic therapy. # Hyponatremia. 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 Possibly it is secondary to lung disease and malignancy. Appreciate nephrology recommendations # New onset atrial fibrillation with RVR. Heart rate is well controlled now with amiodarone and metoprolol T 75 mg q12 h daily. Will start the patient on Ac with eliquis.2.5 mg q12 h daily # Presumed PE, unable to get a V/Q scan due to inability to lie flat. Discussed with Dr. Jordan, findings appear c/w compression from external lung mass rather than PE, heparin drip discontinued. DVT prophylaxis: eliquis Full code Attestations Medical Necessity Statement*: Patient needs to be in hospital for management of respiratory failure. 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
[2020-04-24] MEDS: ipratropium-albuterol 3 mL Neb INHALATION ×2 (13:41→21:48)
--- NOTE | 2020-04-24 17:06 | PM.PN ---
Subjective Subjective: Interval history: Morning chest x-ray did not report any pneumothorax. Discussed with radiologist and he did not even find any pneumothorax, if at all anything is present it is negligible compared to yesterday's chest x-ray. Otherwise patient remained clinically stable and no new complaints. Chest tube output less than 100 cc in last 24 hours. Remove chest tube today. Medications: Reviewed: Yes Medication Review Details: Current Medications Acetaminophen (Tylenol) 650 mg PO Q6H PRN PRN Reason: MILD PAIN Last Admin: 04/22/20 02:44 Dose: 650 mg Documented by: Albuterol/Ipratropium (Duoneb) 3 ml INHALATION Q6H PRN PRN Reason: SHORTNESS OF BREATH Last Admin: 04/23/20 20:50 Dose: 3 ml Documented by: Amiodarone HCl (Cordarone) 400 mg PO [facility] Last Admin: 04/23/20 20:39 Dose: 400 mg Documented by: Apixaban (Eliquis) 2.5 mg PO BID [facility] Last Admin: 04/23/20 17:25 Dose: 2.5 mg Documented by: Denture Adhesive (Fixodent) 1 applic DENTAL PRN PRN PRN Reason: denture adhesive Last Admin: 04/14/20 13:27 Dose: 1 applic Documented by: Piperacillin Sod/Tazobactam (Sod 3.375 gm/ Sodium Chloride) 50 mls @ 12.5 mls/hr IV Q12H [facility] Last Admin: 04/24/20 03:33 Dose: 12.5 mls/hr Documented by: Metoprolol Tartrate (Lopressor) 75 mg PO BID [facility] Last Admin: 04/23/20 17:25 Dose: 75 mg Documented by: Morphine Sulfate (Morphine) 1 mg IVP Q6H PRN PRN Reason: SEVERE PAIN Last Admin: 04/23/20 11:09 Dose: 1 mg Documented by: Nystatin (Nystatin) 500,000 unit PO QID [facility] Last Admin: 04/23/20 20:39 Dose: 500,000 unit Documented by: Ondansetron HCl (Zofran) 4 mg IVP Q6H PRN PRN Reason: NAUSEA AND VOMITING Last Admin: 04/21/20 16:55 Dose: 4 mg Documented by: Oxycodone/Acetaminophen (Percocet 10-325 Mg) 1 tab PO Q4H PRN PRN Reason: SEVERE PAIN Oxycodone/Acetaminophen (Percocet 5-325 Mg) 1 tab PO Q4H PRN PRN Reason: MODERATE PAIN Sevelamer Carbonate (Renvela) 2,400 mg PO TIDWM [facility] Last Admin: 04/23/20 17:24 Dose: 2,400 mg Documented by: Vitals/I&O/Wt Last Vital Signs Temp 97.6 F 04/24/20 15:52 Pulse 65 04/24/20 15:52 Resp 20 H 04/24/20 15:52 BP 90/47 04/24/20 15:52 Pulse Ox 98 04/24/20 15:52 04/24/20 04/24/20 04/24/20 06:59 14:59 22:59 Intake Total 400 / 820.333 890 / 890 Output Total 275 / 825 Balance 125 / -4.667 890 / 890 Physical Exam Narrative: EXAM NARRATIVE: General: alert, NAD HEENT: conj clear, EOMI, PERRL, mmm, Neck: supple, no meningismus Heme: no cervical LAP Pulmonary: Improved breath sounds on right lower lung Cardiovascular: rrr, nl s1s2, no mrg Abdomen: soft, nt, nd, no r/g, bs+ Extremities: pulses +, 2+ pedal edema, no c/c : no CVA tenderness Skin: intact, no rash MSK: no back or neck pain Neurologic: grossly intact Urinary Catheter Management^: Torres: Cath Placed During This Visit: yes, but has since been removed by the nurse Reason for Continuing Indwelling Catheter: Acute Urinary Retention or Obstruction Urinary Catheter Date of Insertion: 04/22/20 Urinary Catheter Time of Insertion: 08:47 Date Urinary Catheter Removed: 04/21/20 Time Urinary Catheter Discontinued: 17:30 Data : 04/24/20 04:15 04/24/20 04:15 Micro: Microbiology 04/21/20 11:20 Gram Stain - Final Pleural Fluid Anaerobic Culture - Preliminary Body Fluid Culture - Final A&P Assessment and plan (1) Sepsis with acute hypoxic respiratory failure: Status: Acute Qualifiers: Sepsis type: sepsis due to unspecified organism Severe sepsis shock status: without septic shock Qualified Code(s): A41.9 - Sepsis, unspecified organism; R65.20 - Severe sepsis without septic shock; J96.01 - Acute respiratory failure with hypoxia (2) Metastatic lung cancer (metastasis from lung to other site): Status: Acute Qualifiers: Laterality: right Qualified Code(s): C34.91 - Malignant neoplasm of unspecified part of right bronchus or lung (3) Leukocytosis: Status: Acute Qualifiers: Leukocytosis type: unspecified Qualified Code(s): D72.829 - Elevated white blood cell count, unspecified (4) Recurrent right pleural effusion: Status: Acute (5) Acute kidney injury: Status: Acute #Hypoxic respiratory failure in patient with metastatic small cell cancer and recurrent large right pleural effusion #Recurrent large right pleural effusion likely secondary to metastatic lung cancer/fluid overload from acute kidney injury requiring dialysis -S/p thoracentesis and drained 1100 cc on 04/11/2020 -Bilateral pleural effusions persisted and patient was in renal failure requiring dialysis -Even after a few sessions of dialysis pleural effusions did not improve and meanwhile patient leukocytosis worsened and there was concern for empyema -CT 04/20/2020 showed worsening right pleural effusion possible loculations -Hospitalist consulted me to repeat thoracentesis/chest tube/Pleurx catheter to rule out empyema -S/p right thoracentesis 04/21/2020 and 1000 cc hemorrhagic fluid drained during insertion -Pleural fluid suggestive of exudative fluid but no empyema-likely of malignant effusion -On 04/22/2020: Drainage catheter connected to low-dose suction and obtained about 800 cc -Administered 10 mg TPA yesterday night and able to drain 400 cc more -Today morning 04/23/2020: Bedside ultrasound showed very minimal effusion: administered additional 10 mg but no additional drinage. - However yesterday 04/23/2020 morning chest x ray showed small right apical pneumothorax, to under water seal and Chest xray today a.m. did not show any worsening of pneumothorax(radiologist did not find any notable pneumothorax) -14 Dominican pigtail removed and applied dressing -If pleural effusion recurs then patient would eventually need Pleurx catheter for recurrent malignant pleural effusion -Dialysis schedule as per renal -Once patient is otherwise stable can be discharged to pulmonary clinic either with Dr. Jordan or me; -Meanwhile in hospital we will follow-up with the patient as necessary Medical condition, labs investigations, imaging everything reviewed in detail and explained to patient above plan of care. Patient verbalized understanding and agreed with the plan and procedure. Attestations Medical Necessity Statement*: Hypoxic respiratory failure with metastatic small cell cancer, DIONISIO requiring hemodialysis. Time Spent in Patient Care: Greater than 35 minutes (>than 50% of time spent in counselling and/or direct pt care on unit). Critical Care Time: Critical Care Time (min): 30 Coding Level of Care Code Established Pt Acute Radio Station Manager for [facility] Fwd Patient Type Established History Detailed Exam Detailed Medical Decision Making Moderate Complexity Diagnoses Sepsis with acute hypoxic respiratory failure A41.9; R65.20; J96.01 Sepsis type: sepsis due to unspecified organism Severe sepsis shock status: without septic shock Metastatic lung cancer (metastasis from lung to other site) C34.91 Laterality: right Leukocytosis D72.829 Leukocytosis type: unspecified Recurrent right pleural effusion J90 Acute kidney injury N17.9 Time Spent (min) 30
[2020-04-24] MEDS: ondansetron 2 mg/ML SDV 2 mL 4 MG IVP (17:43)
--- NOTE | 2020-04-24 18:08 | PC.NURSE ---
PATIENT CHEST TUBE DC'D THIS MORNING PER DR. MCCARTY. NO INCREASED SHORTNESS OF BREATH NOTED THROUGHOUT THIS SHIFT. O2 WEANED DOWN TO 4LNC HIGH FLOW. WILL CONTINUE TO MONITOR.
--- NOTE | 2020-04-24 22:37 | PC.NURSE ---
Patient has no complaints at this time. Patient is refusing Bipap. Patient was educated that if she is in pain she can have PRN pain medication. Patient states that she does not want anything for pain at this time. Will monitor.
[2020-04-25] VITALS (12 sets, daily range): BP systolic 101–149; BP diastolic 57–77; PULSE 61–73; RESP 14–21; TEMP 36.4–37.1; O2SAT 91–100
--- NOTE | 2020-04-25 00:14 | PC.NURSE ---
When patient is asked if she is in pain and if she needs pain medication she states I think I'm fine right now. Will monitor and reassess pain.
[2020-04-25] MEDS: oxyCODONE-APAP 5-325 mg Tablet 1 TAB PO ×2 (01:31→23:32)
--- NOTE | 2020-04-25 02:48 | PC.NURSE ---
Patient appears to be resting comfortably with eyes closed. Will monitor.
[2020-04-25] MEDS: piperacillin-tazobactam 3.375 GM in sodium chloride 0.9% (plus) 50 ML IV ×2 (02:57→13:49)
[2020-04-25 04:38] LABS: Basophils # 0.1 10^3/uL (0.0-0.1); Basophils % 0.7 %; Eosinophils # 0.1 10^3/uL (0.0-0.8); Eosinophils % 1.5 %; Hematocrit 23.1 % (37.0-47.0); Hemoglobin 7.4 g/dL (11.5-15.3); Lymphocytes # 0.7 10^3/uL (0.8-4.8); Mean Corpuscular Volume 96.7 fL (81-99); Monocytes # 0.1 10^3/uL (0.2-0.9); Monocytes % 0.8 %; Neutrophils # 7.15 10^3/uL (1.8-7.7); Neutrophils % 86.8 %; Nucleated Red Blood Cells % 0 %; Platelet Count 103 10^3/cmm (130-400); Red Blood Count 2.39 10^6/uL (4.1-5.3); Red Cell Distribution Width 12.6 % (12.1-15.1); White Blood Count 8.2 10^3/uL (4.0-10.0)
[2020-04-25 05:01] LABS: Alanine Aminotransferase 18 U/L (0-33); Albumin Level 2.4 g/dL (3.5-5.2); Alkaline Phosphatase 160 IU/L (35-105); Anion Gap 14.2 (5-19); Aspartate Amino Transferase 20 U/L (0-32); Blood Urea Nitrogen 57 mg/dL (8-23); Calcium 8.3 mg/dL (8.5-10.5); Carbon Dioxide 26 mmol/L (22-29); Chloride 94 mmol/L (98-107); Globulin 2.6 g/dL (1.3-4.6); Glomerular Filtration Rate 13.7 mL/min (90-130); Glucose 131 mg/dL (65-115); Magnesium 2.2 mg/dL (1.7-2.3); Osmolality Calculated 288 mOsm/kg (285-295); Phosphorus 5.7 mg/dL (2.5-4.5); Potassium 4.2 mmol/L (3.5-5.1); Sodium 130 mmol/L (136-145); Total Bilirubin 0.2 mg/dL (0.15-1.2)
--- NOTE | 2020-04-25 06:00 | PC.NURSE ---
Patient has no complaints at this time. Will monitor. Patient was assisted to the bedside commode once throughout the night and had a BM. Patient was assisted to sit up in bed several times throughout the night.
--- NOTE | 2020-04-25 06:55 | P.PN_ITS ---
Subjective Subjective: Interval history: feels better. happier w/ chest tube out. dec sob. Medications: Reviewed: Yes Medication Review Details: Current Medications Acetaminophen (Tylenol) 650 mg PO Q6H PRN PRN Reason: MILD PAIN Last Admin: 04/22/20 02:44 Dose: 650 mg Documented by: Albuterol/Ipratropium (Duoneb) 3 ml INHALATION Q6H PRN PRN Reason: SHORTNESS OF BREATH Last Admin: 04/24/20 21:48 Dose: 3 ml Documented by: Amiodarone HCl (Cordarone) 400 mg PO [facility] Last Admin: 04/24/20 21:00 Dose: 400 mg Documented by: Apixaban (Eliquis) 2.5 mg PO BID [facility] Last Admin: 04/24/20 17:37 Dose: 2.5 mg Documented by: Denture Adhesive (Fixodent) 1 applic DENTAL PRN PRN PRN Reason: denture adhesive Last Admin: 04/14/20 13:27 Dose: 1 applic Documented by: Furosemide (Lasix) 40 mg IVP Q12H [facility] Last Admin: 04/24/20 21:00 Dose: 40 mg Documented by: Piperacillin Sod/Tazobactam (Sod 3.375 gm/ Sodium Chloride) 50 mls @ 12.5 mls/hr IV Q12H [facility] Last Admin: 04/25/20 02:57 Dose: 12.5 mls/hr Documented by: Metoprolol Tartrate (Lopressor) 75 mg PO BID [facility] Last Admin: 04/24/20 17:37 Dose: 75 mg Documented by: Morphine Sulfate (Morphine) 1 mg IVP Q6H PRN PRN Reason: SEVERE PAIN Last Admin: 04/23/20 11:09 Dose: 1 mg Documented by: Nystatin (Nystatin) 500,000 unit PO QID [facility] Last Admin: 04/24/20 21:00 Dose: 500,000 unit Documented by: Ondansetron HCl (Zofran) 4 mg IVP Q6H PRN PRN Reason: NAUSEA AND VOMITING Last Admin: 04/24/20 17:43 Dose: 4 mg Documented by: Oxycodone/Acetaminophen (Percocet 10-325 Mg) 1 tab PO Q4H PRN PRN Reason: SEVERE PAIN Oxycodone/Acetaminophen (Percocet 5-325 Mg) 1 tab PO Q4H PRN PRN Reason: MODERATE PAIN Last Admin: 04/25/20 01:31 Dose: 1 tab Documented by: Sevelamer Carbonate (Renvela) 2,400 mg PO TIDWM [facility] Last Admin: 04/24/20 17:37 Dose: 2,400 mg Documented by: Vitals/I&O/Wt Last Vital Signs Temp 98 F 04/25/20 03:02 Pulse 63 04/25/20 03:02 Resp 14 04/25/20 03:02 BP 101/57 04/25/20 03:02 Pulse Ox 97 04/25/20 03:02 04/24/20 04/24/20 04/25/20 14:59 22:59 06:59 Intake Total 890 / 890 290 / 1180 120 / 1300 Output Total 470 / 470 300 / 770 Balance 890 / 890 -180 / 710 -180 / 530 Physical Exam Narrative: EXAM NARRATIVE: more comfortable, breathing improving, vs noted- on nc 02 heent- nc/at, eomi neck supple, rt ij temp dialysis catheter lung -dull bases, dec crackles b/l hear reg, +NATHEN abd soft, nt, nd, +BS ext b/l edema dec neuro- a,a,o x 3 pulses + b/l Urinary Catheter Management^: Torres: Cath Placed During This Visit: yes, but has since been removed by the nurse Reason for Continuing Indwelling Catheter: Acute Urinary Retention or Obstruction Urinary Catheter Date of Insertion: 04/22/20 Urinary Catheter Time of Insertion: 08:47 Date Urinary Catheter Removed: 04/21/20 Time Urinary Catheter Discontinued: 17:30 Data : 04/25/20 04:06 04/25/20 04:06 Micro: Microbiology 04/21/20 11:20 Gram Stain - Final Pleural Fluid Anaerobic Culture - Preliminary Body Fluid Culture - Final A&P Additional A&P Information 64 yr old female 1. Acute kidney injury, oliguric, on hemodialysis, last HD 04/23/20 -presumed ATN from septic shock -hold HD today. -monitor for renl recovery. however, i suspect will need HD in am. if remains on HD- would change temp catheter to a tunnelled catheter- please discuss w/ surgery - monitor uop w/ lasix -s/p thoracentesis and pigtail catheter removal 2. electrolyte abnormalities -hyponatremia from DIONISIO and pulm process -Hyperphosphatemia- HD and non - ca based binder 3. Metastatic Small Cell lung cancer, received Etoposide and Cisplatin, bilateral pleural effusions 4. Post obstructive pneumonia -s/p thoracentesis -cxr w/ small b/l pleural effusions and b/l mets and lymphadenopathy -sob likely from cancer, more than volume overload - keep some lasix 5. Atrial fibrillation- now in NSR 6. anemia from cancer- hgb down to 7.4- concern for thrombosis- discuss w/ heme if epogen is safe 7. leukocytosis- improved to 8 9. thrombocytopenia 10. 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
[2020-04-25] MEDS: sevelamer 800 mg Tablet 2400 MG PO ×3 (07:53→18:04)
[2020-04-25] MEDS: FUROsemide 10 mg/mL SDV 4mL 40 MG IVP ×2 (07:53→21:01)
--- NOTE | 2020-04-25 08:40 | US_ITS ---
WS: [id number] US soft tissue/extremity 26743 REASON FOR EXAM: edema and redness to the left upper extremity FINDINGS: The ultrasound demonstrates complex shaped hypointensity in the subcutaneous fat and fascia of the le ft forearm(fluid) compatible with the history of intravenous contrast extravasation. There is no devang nant focal fluid collection. No other findings noted. US/US soft tissue/extremity 37009 IMPRESSION: Findings compatible with recent contrast extravasation into the soft tissues.
--- NOTE | 2020-04-25 08:41 | USCV_ITS ---
Pamela Jack Age: 64 Gender: F : 1955 Exam Date: 04/25/2020 13:18 Ordering Phys: Laurent Cottrell MD Technologist: Wan Jack Exam Location: [facility] [place] Indication: RT ARM PAIN AND SWELLING NON FUNCTIONING PORT HISTORY: CANCER PT PROCEDURES: Venous duplex imaging was performed in only the right upper extremity. The following venous structures were evaluated: internal jugular vein, subclavian vein, axillary vein, and brachial veins. In addition, the basilic vein, cephalic vein, radial vein, and ulnar vein. FINDINGS: Acute thrombus in the right jugular and cephalic veins. The remaining veins are free of thrombus. CONCLUSIONS Acute DVT right jugular and cephalic veins. Dr. Bekah Amezcua DO (Electronically Signed) Final Date: 26 April 2020 15:16 S
[2020-04-25] MEDS: nystatin 100,000 unit/mL UDC 5 mL 500000 UNIT PO ×4 (09:42→21:01)
[2020-04-25] MEDS: amiodarone 200 mg Tablet 400 MG PO ×2 (09:44→21:01)
[2020-04-25] MEDS: metoprolol tartrate 50 mg Tablet 75 MG PO ×2 (09:44→18:04)
[2020-04-25] MEDS: ipratropium-albuterol 3 mL Neb INHALATION (09:53)
--- NOTE | 2020-04-25 10:35 | P.HP_ITS ---
Providers/Chief Complaint Admitting Physician: Jonathan Calderon MD Primary Care Provider: Mariam Mckeon COMMUNITY DEVELOPMENT DIRECTOR-C Chief Complaint: PNEUMONIA History of Present Illness Pamela Jack is a 64 year old female who has been empirically treated for pneumonia but has been diagnosed with suspected metastatic lung cancer. Review of Systems General: Reports: 10 or more systems reviewed and unremarkable except in HPI and below Medications/Allergies Home Medications Medication Instructions Recorded Confirmed Last Taken Type albuterol sulfate 2 puff INHALATION 6XD PRN 04/08/20 04/08/20 Unknown History doxycycline hyclate 100 mg PO BID 04/08/20 04/08/20 04/08/20 History ipratropium-albuterol 3 ml INHALATION QID 04/08/20 04/08/20 04/08/20 History prednisone See Rx Instructions .ROUTE .COMPLEX 04/08/20 04/08/20 04/08/20 History Allergies Allergy/AdvReac Type Severity Reaction Status Date / Time linezolid Allergy ALGY-Difficulty Verified 04/11/20 18:25 Breathing PFSH Acute PFSH: Medical History (Updated 04/25/20 @ 17:40 by Laurent Cottrell MD) Acute diastolic heart failure Acute kidney injury Malignant neoplasm of right main bronchus This patient presents with CT evidence of primary lung cancer at the right hilum. There is associated postobstructive pneumonia and right pleural effusion. There is associated mediastinal and bilateral hilar adenopathy and there are satellite nodules in both lungs as well as extensive metastatic involvement in the liver. 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 Pathology on the liver biopsy is still pending at this time. She does have very poor performance status, and her further management will also be complicated by the acute renal injury. However, if it is small cell cancer, there will still be potential for response to chemotherapy. Metastatic lung cancer (metastasis from lung to other site) New onset atrial fibrillation Pneumonia Spontaneous tumor lysis syndrome Surgical History (Updated 04/25/20 @ 10:42 by Steve Caal MD) S/P dialysis catheter insertion Family History Mother CAD (coronary artery disease) Social History Smoking and tobacco status: current every day smoker cigarettes [ Other cigarette details: She has smoked for 45 years up to a pack and a half of cigarettes daily. ] Alcohol intake: former Other details last alcohol use: She has a long history of alcohol use which had increased over the past 10 years up to 12 pack of beer per day. She quit 3 to 4 months ago. Household members: family Housing: House Vitals/I&O/Wt Last Vital Signs Temp 98.8 F 04/25/20 08:00 Pulse 70 04/25/20 10:12 Resp 16 04/25/20 10:12 BP 149/72 04/25/20 08:00 Pulse Ox 96 04/25/20 10:12 04/24/20 04/25/20 04/25/20 22:59 06:59 14:59 Intake Total 290 / 1300 120 / 1300 Output Total 470 / 770 300 / 770 Balance -180 / 530 -180 / 530 Physical Exam Narrative: EXAM NARRATIVE: HEENT: Normocephalic, right IJ hemodialysis catheter Eye: Sclera /conjunctiva normal Abdomen: Soft to palpation Neurological: Oriented to place person and time Skin: Intact, 3 x 3 cm abscess left forearm, tender Urinary Catheter Management^: Torres: Cath Placed During This Visit: yes, but has since been removed by the nurse Reason for Continuing Indwelling Catheter: Acute Urinary Retention or Obstruction Urinary Catheter Date of Insertion: 04/22/20 Urinary Catheter Time of Insertion: 08:47 Date Urinary Catheter Removed: 04/21/20 Time Urinary Catheter Discontinued: 17:30 Data : 04/26/20 03:27 04/26/20 03:27 Micro: Microbiology 04/21/20 11:20 Fungal Smear - Preliminary Pleural Fluid 04/21/20 11:20 Mycobacterial Smear - Preliminary Body Fluids - Pleura,Rt Lung 04/21/20 11:20 Gram Stain - Final Pleural Fluid Anaerobic Culture - Preliminary Body Fluid Culture - Final A&P Assessment and plan (1) Abscess: 64-year-old female with 2-week hospitalization for metastatic lung cancer, acute kidney injury was noted with an abscess on the left forearm. Plan for incision and drainage of abscess under MAC Continue Zosyn Status: Acute (2) ATN (acute tubular necrosis): Plan for exchange of hemodialysis catheter to tunneled hemodialysis catheter tomorrow. Procedure, risks, benefits and alternatives have been discussed with the patient who wishes to proceed with surgery. 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
[2020-04-25] MEDS: ondansetron 2 mg/ML SDV 2 mL 4 MG IVP (13:49)
--- NOTE | 2020-04-25 14:37 | P.PN_ITS ---
Subjective Subjective: Interval history: Symptomatically much better. Was able to walk around with help of physical therapy. Denied any difficulty breathing or chest pain. Medications: Reviewed: Yes Medication Review Details: Current Medications Acetaminophen (Tylenol) 650 mg PO Q6H PRN PRN Reason: MILD PAIN Last Admin: 04/22/20 02:44 Dose: 650 mg Documented by: Albuterol/Ipratropium (Duoneb) 3 ml INHALATION Q6H PRN PRN Reason: SHORTNESS OF BREATH Last Admin: 04/24/20 21:48 Dose: 3 ml Documented by: Amiodarone HCl (Cordarone) 400 mg PO [facility] Last Admin: 04/24/20 21:00 Dose: 400 mg Documented by: Apixaban (Eliquis) 2.5 mg PO BID [facility] Last Admin: 04/24/20 17:37 Dose: 2.5 mg Documented by: Denture Adhesive (Fixodent) 1 applic DENTAL PRN PRN PRN Reason: denture adhesive Last Admin: 04/14/20 13:27 Dose: 1 applic Documented by: Furosemide (Lasix) 40 mg IVP Q12H [facility] Last Admin: 04/24/20 21:00 Dose: 40 mg Documented by: Piperacillin Sod/Tazobactam (Sod 3.375 gm/ Sodium Chloride) 50 mls @ 12.5 mls/hr IV Q12H [facility] Last Admin: 04/25/20 02:57 Dose: 12.5 mls/hr Documented by: Metoprolol Tartrate (Lopressor) 75 mg PO BID [facility] Last Admin: 04/24/20 17:37 Dose: 75 mg Documented by: Morphine Sulfate (Morphine) 1 mg IVP Q6H PRN PRN Reason: SEVERE PAIN Last Admin: 04/23/20 11:09 Dose: 1 mg Documented by: Nystatin (Nystatin) 500,000 unit PO QID [facility] Last Admin: 04/24/20 21:00 Dose: 500,000 unit Documented by: Ondansetron HCl (Zofran) 4 mg IVP Q6H PRN PRN Reason: NAUSEA AND VOMITING Last Admin: 04/24/20 17:43 Dose: 4 mg Documented by: Oxycodone/Acetaminophen (Percocet 10-325 Mg) 1 tab PO Q4H PRN PRN Reason: SEVERE PAIN Oxycodone/Acetaminophen (Percocet 5-325 Mg) 1 tab PO Q4H PRN PRN Reason: MODERATE PAIN Last Admin: 04/25/20 01:31 Dose: 1 tab Documented by: Sevelamer Carbonate (Renvela) 2,400 mg PO TIDWM ANGEL Last Admin: 04/24/20 17:37 Dose: 2,400 mg Documented by: Vitals/I&O/Wt Last Vital Signs Temp 97.5 F L 04/25/20 11:37 Pulse 64 04/25/20 14:20 Resp 17 04/25/20 14:20 BP 115/77 04/25/20 11:37 Pulse Ox 99 04/25/20 14:20 04/24/20 04/25/20 04/25/20 22:59 06:59 14:59 Intake Total 290 / 1180 170 / 1350 Output Total 470 / 470 300 / 770 Balance -180 / 710 -130 / 580 Physical Exam Narrative: EXAM NARRATIVE: General: alert, NAD HEENT: conj clear, EOMI, PERRL, mmm, Neck: supple, no meningismus Heme: no cervical LAP Pulmonary: Improved breath sounds on right lower lung Cardiovascular: rrr, nl s1s2, no mrg Abdomen: soft, nt, nd, no r/g, bs+ Extremities: pulses +, 2+ pedal edema, no c/c : no CVA tenderness Skin: intact, no rash MSK: no back or neck pain Neurologic: grossly intact Urinary Catheter Management^: Torres: Cath Placed During This Visit: yes, but has since been removed by the nurse Reason for Continuing Indwelling Catheter: Acute Urinary Retention or Obstruction Urinary Catheter Date of Insertion: 04/22/20 Urinary Catheter Time of Insertion: 08:47 Date Urinary Catheter Removed: 04/21/20 Time Urinary Catheter Discontinued: 17:30 Data : 04/25/20 04:06 04/25/20 04:06 Micro: Microbiology 04/21/20 11:20 Gram Stain - Final Pleural Fluid Anaerobic Culture - Preliminary Body Fluid Culture - Final 04/21/20 11:20 Fungal Smear - Preliminary Pleural Fluid 04/21/20 11:20 Mycobacterial Smear - Preliminary Body Fluids - Pleura,Rt Lung A&P Assessment and plan (1) Sepsis with acute hypoxic respiratory failure: Status: Acute Qualifiers: Sepsis type: sepsis due to unspecified organism Severe sepsis shock status: without septic shock Qualified Code(s): A41.9 - Sepsis, unspecified organism; R65.20 - Severe sepsis without septic shock; J96.01 - Acute respiratory failure with hypoxia (2) Metastatic lung cancer (metastasis from lung to other site): Status: Acute Qualifiers: Laterality: right Qualified Code(s): C34.91 - Malignant neoplasm of unspecified part of right bronchus or lung (3) Leukocytosis: Status: Acute Qualifiers: Leukocytosis type: unspecified Qualified Code(s): D72.829 - Elevated white blood cell count, unspecified (4) Recurrent right pleural effusion: Status: Acute (5) Acute kidney injury: Status: Acute #Hypoxic respiratory failure in patient with metastatic small cell cancer and recurrent large right pleural effusion #Recurrent large right pleural effusion likely secondary to metastatic lung cancer/fluid overload from acute kidney injury requiring dialysis -S/p thoracentesis and drained 1100 cc on 04/11/2020 -Bilateral pleural effusions persisted and patient was in renal failure requiring dialysis -Even after a few sessions of dialysis pleural effusions did not improve and meanwhile patient leukocytosis worsened and there was concern for empyema -CT 04/20/2020 showed worsening right pleural effusion possible loculations -Hospitalist consulted me to repeat thoracentesis/chest tube/Pleurx catheter to rule out empyema -S/p right thoracentesis 04/21/2020 and 1000 cc hemorrhagic fluid drained during insertion -Pleural fluid suggestive of exudative fluid but no empyema-likely of malignant effusion -On 04/22/2020: Drainage catheter connected to low-dose suction and obtained about 800 cc -Administered 10 mg TPA yesterday night and able to drain 400 cc more -Today morning 04/23/2020: Bedside ultrasound showed very minimal effusion: administered additional 10 mg but no additional drinage. - However yesterday 04/23/2020 morning chest x ray showed small right apical pneumothorax, to under water seal and Chest xray today a.m. did not show any worsening of pneumothorax(radiologist did not find any notable pneumothorax) -14 Malay pigtail removed and applied dressing on 04/24/2020 -If pleural effusion recurs then patient would eventually need Pleurx catheter for recurrent malignant pleural effusion -Dialysis schedule as per renal -Once patient is otherwise stable can be discharged to pulmonary clinic either with Dr. Julian or me; -We will sign off for now and please reconsult if needed thank you Medical condition, labs investigations, imaging everything reviewed in detail and explained to patient above plan of care. Patient verbalized understanding and agreed with the plan and procedure. Attestations Medical Necessity Statement*: Improved respiratory strickland and currently waiting for placement of tunneled dialysis catheter Time Spent in Patient Care: 16 - 35 minutes (>than 50% of time spent in counselling and/or direct pt care on unit) . Critical Care Time: Critical Care Time (min): 16 Coding Level of Care Code Established Pt Acute [employer] for Chg Fwd Patient Type Established History Comprehensive Exam Comprehensive Medical Decision Making Moderate Complexity Diagnoses Sepsis with acute hypoxic respiratory failure A41.9; R65.20; J96.01 Sepsis type: sepsis due to unspecified organism Severe sepsis shock status: without septic shock Metastatic lung cancer (metastasis from lung to other site) C34.91 Laterality: right Leukocytosis D72.829 Leukocytosis type: unspecified Recurrent right pleural effusion J90 Acute kidney injury N17.9 Time Spent (min) 16
--- NOTE | 2020-04-25 17:35 | P.PN_ITS ---
Subjective Subjective: Interval history: Patient is feeling much better since yesterday, shortness of breath , has remained afebrile, vitals and labs have been reviewed, total urine output in the last 24-hour is 600 CC she was on 40 every 12 Lasix IV. Renal is of the opinion that we should get a tunneled catheter placed for possible extended dialysis, with hope of recovery. Other vitals and labs have been reviewed. Medications: Reviewed: Yes Vitals/I&O/Wt Last Vital Signs Temp 97.8 F 04/25/20 15:44 Pulse 65 04/25/20 15:44 Resp 14 04/25/20 15:44 BP 112/70 04/25/20 15:44 Pulse Ox 93 04/25/20 15:44 04/25/20 04/25/20 04/25/20 06:59 14:59 22:59 Intake Total 170 / 1350 Output Total 300 / 770 Balance -130 / 580 Physical Exam Narrative: EXAM NARRATIVE: EXAM NARRATIVE: General: alert, NAD HEENT: conj clear, EOMI, PERRL, mmm, Neck: supple, no meningismus Heme: no cervical LAP Pulmonary: Improved breath sounds on right lower lung Cardiovascular: rrr, nl s1s2, no mrg Abdomen: soft, nt, nd, no r/g, bs+ Extremities: pulses +, 2+ pedal edema, no c/c : no CVA tenderness Skin: intact, no rash MSK: no back or neck pain Neurologic: grossly intact Urinary Catheter Management^: Torres: Cath Placed During This Visit: yes, but has since been removed by the nurse Reason for Continuing Indwelling Catheter: Acute Urinary Retention or Obstruction Urinary Catheter Date of Insertion: 04/22/20 Urinary Catheter Time of Insertion: 08:47 Date Urinary Catheter Removed: 04/21/20 Time Urinary Catheter Discontinued: 17:30 Data : 04/25/20 04:06 04/25/20 04:06 Micro: Microbiology 04/21/20 11:20 Gram Stain - Final Pleural Fluid Anaerobic Culture - Preliminary Body Fluid Culture - Final 04/21/20 11:20 Fungal Smear - Preliminary Pleural Fluid 04/21/20 11:20 Mycobacterial Smear - Preliminary Body Fluids - Pleura,Rt Lung A&P Assessment and plan (1) Sepsis with acute hypoxic respiratory failure: Status: Acute Qualifiers: Sepsis type: sepsis due to unspecified organism Severe sepsis shock status: without septic shock Qualified Code(s): A41.9 - Sepsis, unspecified organism; R65.20 - Severe sepsis without septic shock; J96.01 - Acute respiratory failure with hypoxia (2) Recurrent right pleural effusion: Status: Acute (3) Metastatic lung cancer (metastasis from lung to other site): Status: Acute Qualifiers: Laterality: right Qualified Code(s): C34.91 - Malignant neoplasm of unspecified part of right bronchus or lung (4) ATN (acute tubular necrosis): Status: Acute (5) Pneumonia: Status: Acute Qualifiers: Pneumonia type: due to unspecified organism Laterality: right Lung location: unspecified part of lung Qualified Code(s): J18.9 - Pneumonia, unspecified organism (6) Hyponatremia: Status: Acute (7) New onset of congestive heart failure: Status: Acute (8) Abnormal transaminases: Status: Acute (9) Leukocytosis: Status: Acute Qualifiers: Leukocytosis type: unspecified Qualified Code(s): D72.829 - Elevated white blood cell count, unspecified Additional A&P Information #Malignant right pleural effusion: Status post right-sided thoracentesis. Good resolution of pleural effusion. Chest tube has been removed. Given nature of pleural effusion, she will potentially require Pleurx catheter in future, if reaccumulation takes PLACE. #Rt Pneumothorax: S/P thoracentesis and chest tube placement. Serial xary have shown resolution of rt PTX.Continue to monitor with xray chest. 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 Requiring BiPAP at nighttime, on high flow nasal cannula in the day. Stable oxygen requirements for now. CAT scan yesterday showed worsened effusion and now also with loculation therefore a complex parapneumonic effusion versus empyema cannot be excluded. She is to undergo thoracentesis with pulmonary today. #Rt forearm abscess: Currently on zosyn, due for I&d by surgery in am #DIONISIO most likely secondary to ATN. Creatinine peak at 5, continues to improve today. Started on hemodialysis. Patient was oliguric but has started making urine on lasix. Appreciate pulmonary and renal recommendations #Sepsis, present on admission, now resolved. Fluid gram stain and cx negative to date from thoracentesis on 04/11. Blood culture negative on admission. Patient is not febrile. Leukocytosis is persisting, may be contributed by obstructive process by endobronchial tumor. CAT scan repeated yesterday due to suspicion of complex effusion, and it did reveal multiloculated pleural effusion, possibly empyema.the study was noncontrast. Patient has been on a prolonged course of antibiotics up until now, meropenem and vancomycin, doxycycline earlier in the course of admission. These have been changed to Zosyn. Did not believe this to be an antibiotic failure, rather shows likely to be source control. Will await further cultures from thoracentesis today to change any antibiotic therapy. # Hyponatremia. 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 Possibly it is secondary to lung disease and malignancy. Appreciate nephrology recommendations # New onset atrial fibrillation with RVR. Heart rate is well controlled now with amiodarone and metoprolol T 75 mg q12 h daily. Will start the patient on Ac with eliquis.2.5 mg q12 h daily # Presumed PE, unable to get a V/Q scan due to inability to lie flat. Discussed with Dr. Jordan, findings appear c/w compression from external lung mass rather than PE, heparin drip discontinued. 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[facility] Diagnoses Sepsis with acute hypoxic respiratory failure A41.9; R65.20; J96.01 Sepsis type: sepsis due to unspecified organism Severe sepsis shock status: without septic shock Recurrent right pleural effusion J90 Metastatic lung cancer (metastasis from lung to other site) C34.91 Laterality: right ATN (acute tubular necrosis) N17.0 Pneumonia J18.9 Pneumonia type: due to unspecified organism Laterality: right Lung location: unspecified part of lung Hyponatremia E87.1 New onset of congestive heart failure I50.9 Abnormal transaminases R74.8 Leukocytosis D72.829 Leukocytosis type: unspecified
--- NOTE | 2020-04-25 19:08 | P.PN_ITS ---
Subjective Subjective: Interval history: Patient had a dialysis yesterday. The chest tube was taken out yesterday. She is feeling somewhat better. Still has significant shortness of breath with activities. Denies any fever or chills. Telemetry shows sinus rhythm. Medications: Reviewed: Yes Medication Review Details: Current Medications Acetaminophen (Tylenol) 650 mg PO Q6H PRN PRN Reason: MILD PAIN Last Admin: 04/22/20 02:44 Dose: 650 mg Documented by: Albuterol/Ipratropium (Duoneb) 3 ml INHALATION Q6H PRN PRN Reason: SHORTNESS OF BREATH Last Admin: 04/25/20 09:53 Dose: 3 ml Documented by: Amiodarone HCl (Cordarone) 400 mg PO [facility] Last Admin: 04/25/20 09:44 Dose: 400 mg Documented by: Denture Adhesive (Fixodent) 1 applic DENTAL PRN PRN PRN Reason: denture adhesive Last Admin: 04/14/20 13:27 Dose: 1 applic Documented by: Furosemide (Lasix) 40 mg IVP Q12H [facility] Last Admin: 04/25/20 07:53 Dose: 40 mg Documented by: Piperacillin Sod/Tazobactam (Sod 3.375 gm/ Sodium Chloride) 50 mls @ 12.5 mls/hr IV Q12H [facility] Last Infusion: 04/25/20 18:06 Dose: Infused Documented by: Metoprolol Tartrate (Lopressor) 75 mg PO BID [facility] Last Admin: 04/25/20 18:04 Dose: 75 mg Documented by: Morphine Sulfate (Morphine) 1 mg IVP Q6H PRN PRN Reason: SEVERE PAIN Last Admin: 04/23/20 11:09 Dose: 1 mg Documented by: Nystatin (Nystatin) 500,000 unit PO QID [facility] Last Admin: 04/25/20 18:03 Dose: 500,000 unit Documented by: Ondansetron HCl (Zofran) 4 mg IVP Q6H PRN PRN Reason: NAUSEA AND VOMITING Last Admin: 04/25/20 13:49 Dose: 4 mg Documented by: Oxycodone/Acetaminophen (Percocet 10-325 Mg) 1 tab PO Q4H PRN PRN Reason: SEVERE PAIN Oxycodone/Acetaminophen (Percocet 5-325 Mg) 1 tab PO Q4H PRN PRN Reason: MODERATE PAIN Last Admin: 04/25/20 01:31 Dose: 1 tab Documented by: Sevelamer Carbonate (Renvela) 2,400 mg PO TIDWM [facility] Last Admin: 04/25/20 18:04 Dose: 2,400 mg Documented by: Vitals/I&O/Wt Last Vital Signs Temp 97.8 F 04/25/20 15:44 Pulse 65 04/25/20 15:44 Resp 14 04/25/20 15:44 BP 112/70 04/25/20 15:44 Pulse Ox 93 04/25/20 15:44 04/25/20 04/25/20 04/25/20 06:59 14:59 22:59 Intake Total 170 / 1350 50 / 50 Output Total 300 / 770 575 / 575 Balance -130 / 580 -525 / -525 Physical Exam Narrative: EXAM NARRATIVE: GENERAL: Patient is alert and is on a BiPAP HEENT: Minimal pallor, no icterus or lymphadenopathy. NECK: Trachea appears to be central. No masses noted. No JVD or thyromegaly appreciated. No carotid bruit. Dialysis catheter in the jugular vein. RESPIRATORY: Chest is symmetrical. No intercostals muscle retraction or any accessory muscle activation. There is no chest wall tenderness. Breath sounds are heard bilaterally. Breath sounds are diminished up to the mid chest on the right side BREASTS: Deferred. HEART: The PMI could not be palpated. No palpable precordial events. S1 and S2 are normal. No S3 or S4 heard. No pericardial rub or any click heard. ABDOMEN: No vessel pulsations or distention. No tenderness. No organomegaly appreciated. No abdominal bruit. Bowel sounds are normally heard. : Deferred. RECTAL: Deferred. LYMPHATIC: No lymphadenopathy noted in the neck. EXTREMITIES: 1-2+ edema both lower extremities. No cyanosis. MUSCULOSKELETAL: No acute joint deformities or swelling SKIN: There are no significant scars or skin rash noted. NEUROPSYCHIATRIC: No obvious neurological deficits. Urinary Catheter Management^: Torres: Cath Placed During This Visit: yes, but has since been removed by the nurse Reason for Continuing Indwelling Catheter: Acute Urinary Retention or Obstruction Urinary Catheter Date of Insertion: 04/22/20 Urinary Catheter Time of Insertion: 08:47 Date Urinary Catheter Removed: 04/21/20 Time Urinary Catheter Discontinued: 17:30 Data : 04/25/20 04:06 04/25/20 04:06 Micro: Microbiology 04/21/20 11:20 Gram Stain - Final Pleural Fluid Anaerobic Culture - Preliminary Body Fluid Culture - Final 04/21/20 11:20 Fungal Smear - Preliminary Pleural Fluid 04/21/20 11:20 Mycobacterial Smear - Preliminary Body Fluids - Pleura,Rt Lung A&P Assessment and plan (1) New onset atrial fibrillation: Patient currently seems to be staying in the sinus rhythm. Status: Acute (2) Acute diastolic heart failure: Heart failure is compensated. Management of fluid status, as per nephrology Status: Acute (3) Pleural effusion: Patient seems to have recurrent pleural effusion on the right side. May consider indwelling catheter-will be decided by the pulmonology Status: Acute (4) Metastatic cancer: Patient is on chemotherapy. Seems to be tolerating fairly well. Management as per the oncology service. 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 Currently has no fever. Status: Acute (6) Acute kidney injury: Dialysis as per the nephrology. Planning for subclavian catheter Status: Acute Additional A&P Information Other problems are Anemia Hypoalbuminemia Generalized weakness May continue on the amiodarone and the beta-nola at the current dose. We will cut back on the dose of the amiodarone to 400 mg daily from this Wednesday onwards. 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
--- NOTE | 2020-04-25 22:13 | PC.NURSE ---
Patient assisted to bedside commode and back to bed. Dr. Puckett notified of stool appearing dark and tarry. Stool sample ordered. Patient is refusing to wear Bipap. Will monitor.
[2020-04-26] VITALS (9 sets, daily range): BP systolic 101–173; BP diastolic 54–73; PULSE 60–88; RESP 17–20; TEMP 36.1–36.6; O2SAT 90–100
--- NOTE | 2020-04-26 | SCC_ITS ---
Procedure Done: 1. Incision and drainage of left forearm abscess measuring 4 x 4 cm 2. Removal of temporary dialysis catheter from right internal jugular vein 3. Placement of tunneled AshSplit hemodialysis catheter in the right internal jugular vein 4. Fluoroscopic guidance and interpretation for placement of catheter 5. Ultrasound guidance and interpretation for placement of catheter 89.9 seconds of fluoroscopic guidance, for a cumulative dose of 10.32 mGy, was provided to Dr. Caal by the radiology department. C-arm images of the chest were saved for the patient's permanent record. WILTON
[2020-04-26] MEDS: piperacillin-tazobactam 3.375 GM in sodium chloride 0.9% (plus) 50 ML IV (03:17)
[2020-04-26 04:08] LABS: Basophils % 0.5 %; Eosinophils # 0.1 10^3/uL (0.0-0.8); Hematocrit 21.8 % (37.0-47.0); Lymphocytes # 0.6 10^3/uL (0.8-4.8); Lymphocytes % 15.6 %; Mean Corpuscular HGB Conc 32.1 g/dL (30.0-36.0); Mean Corpuscular Hemoglobin 31.3 pg (28.0-34.0); Mean Corpuscular Volume 97.3 fL (81-99); Mean Platelet Volume 12.2 fL (7.4-10.4); Monocytes # 0.1 10^3/uL (0.2-0.9); Monocytes % 2.7 %; Neutrophils # 3.17 10^3/uL (1.8-7.7); Neutrophils % 77.5 %; Nucleated Red Blood Cells % 0 %; Platelet Count 100 10^3/cmm (130-400); Red Blood Count 2.24 10^6/uL (4.1-5.3); Red Cell Distribution Width 12.6 % (12.1-15.1); White Blood Count 4.1 10^3/uL (4.0-10.0)
[2020-04-26 04:36] LABS: Alanine Aminotransferase 26 U/L (0-33); Albumin Level 2.5 g/dL (3.5-5.2); Alkaline Phosphatase 171 IU/L (35-105); Anion Gap 16.3 (5-19); Aspartate Amino Transferase 24 U/L (0-32); Blood Urea Nitrogen 68 mg/dL (8-23); Calcium 8.9 mg/dL (8.5-10.5); Carbon Dioxide 26 mmol/L (22-29); Chloride 94 mmol/L (98-107); Globulin 2.7 g/dL (1.3-4.6); Glomerular Filtration Rate 10.4 mL/min (90-130); Glucose 101 mg/dL (65-115); Magnesium 2.3 mg/dL (1.7-2.3); Osmolality Calculated 294 mOsm/kg (285-295); Phosphorus 5.3 mg/dL (2.5-4.5); Potassium 4.3 mmol/L (3.5-5.1); Sodium 132 mmol/L (136-145); Total Bilirubin 0.3 mg/dL (0.15-1.2); Total Protein 5.2 g/dL (6.6-8.7)
--- NOTE | 2020-04-26 05:53 | PC.NURSE ---
Hibiclenes wipes used per order.
[2020-04-26] MEDS: FUROsemide 10 mg/mL SDV 4mL 40 MG IVP ×2 (05:56→19:53)
--- NOTE | 2020-04-26 06:56 | P.PN_ITS ---
Subjective Subjective: Interval history: no issues overnight Vitals/I&O/Wt Last Vital Signs Temp 97.9 F 04/26/20 03:42 Pulse 64 04/26/20 03:42 Resp 17 04/26/20 03:42 BP 106/54 04/26/20 03:42 Pulse Ox 97 04/26/20 03:42 04/25/20 04/25/20 04/26/20 14:59 22:59 06:59 Intake Total 50 / 50 Output Total 575 / 950 375 / 950 Balance -525 / -900 -375 / -900 Physical Exam Narrative: EXAM NARRATIVE: Abscess left foreram Urinary Catheter Management^: Torres: Cath Placed During This Visit: yes, but has since been removed by the nurse Reason for Continuing Indwelling Catheter: Acute Urinary Retention or Obstruction Urinary Catheter Date of Insertion: 04/22/20 Urinary Catheter Time of Insertion: 08:47 Date Urinary Catheter Removed: 04/21/20 Time Urinary Catheter Discontinued: 17:30 Data : 04/26/20 03:27 04/26/20 03:27 Micro: Microbiology 04/25/20 22:00 Occult Blood (FIT) - Final Stool - Stool Aspirate 04/25/20 22:00 C.difficile Toxin B Gene (PCR) - Final Stool - Stool Aspirate 04/21/20 11:20 Gram Stain - Final Pleural Fluid Anaerobic Culture - Preliminary Body Fluid Culture - Final 04/21/20 11:20 Fungal Smear - Preliminary Pleural Fluid 04/21/20 11:20 Mycobacterial Smear - Preliminary Body Fluids - Pleura,Rt Lung A&P Assessment and plan (1) Abscess: 64-year-old female with 2-week hospitalization for metastatic lung cancer, acute kidney injury was noted with an abscess on the left forearm most likely secondary to infected thrombophlebitis Plan for incision and drainage of abscess under MAC Continue Zosyn Status: Acute (2) ATN (acute tubular necrosis): Plan for exchange of hemodialysis catheter to tunneled hemodialysis catheter today Status: Acute Attestations Medical Necessity Statement*: acute renal failure Coding Level of Care Code Acute Compressor Operator Portable for [facility] Fwd Diagnoses Abscess L02.91 ATN (acute tubular necrosis) N17.0
[2020-04-26] MEDS: sodium chloride 0.9% 1,000 ML 30 ML IV (07:18)
--- NOTE | 2020-04-26 08:20 | SC_ITS ---
WS: [id number] AP view of the right upper chest with C-arm, 04/26/2020 Clinical Data: SURGERY Comparison: Portable chest, 04/24/2020. Findings: A large bore dialysis catheter enters the right internal jugular vein and ends in the superior vena c marco. SC/C-arm [place] CVA [address] Impression: Satisfactory placement of dialysis catheter.
[2020-04-26] MEDS: heparin, porcine 1,000 unit/mL INJ 10 mL 10000 UNIT HE (08:58)
[2020-04-26] MEDS: lidocaine 1% INJ 20 mL INJECTION (09:00)
--- NOTE | 2020-04-26 10:05 | PC.NURSE ---
pt back from recovery. a/o, answers questions correctly. no s/s of acute distress or discomfort noted. placed back on monitoring coordinator. call light with in reach. will continue to monitor and provide support and safety.
--- NOTE | 2020-04-26 10:15 | SUR.PHASEI ---
0959 pPT AAWKE ALERT DENIES PAIN AND NAUSEA, PT TO FLOOR PER CART PT ASSISTED WITH TRANSFER PER SLIDE BOARD WITH 4 STAFF, LT NECK DRESSING D/I NO HEMATOMA NOTED AND LT ARM SOFT DRESSING D/I. HANDOFF AT BEDSIDE TO DADA AMBRIZ
[2020-04-26 11:13] LABS: Glucose Point of Care 114 mg/dL (70-110)
--- NOTE | 2020-04-26 11:20 | PM.PN ---
Subjective Subjective: Interval history: Patient underwent a tunneled subclavian venous catheter today for the dialysis. She also had the incision and drainage of the abscess in the left forearm. Denies any fever or chills. No cough. No other specific complaints at this time. She has a baseline shortness of breath with activities. Also might be accumulating fluid in the right pleural cavity. Medications: Reviewed: Yes Medication Review Details: Current Medications Acetaminophen (Tylenol) 650 mg PO Q6H PRN PRN Reason: MILD PAIN Last Admin: 04/22/20 02:44 Dose: 650 mg Documented by: Albuterol Sulfate (Albuterol) 2.5 mg INHALATION ONCE PRN PRN Reason: WHEEZING Albuterol/Ipratropium (Duoneb) 3 ml INHALATION Q6H PRN PRN Reason: SHORTNESS OF BREATH Last Admin: 04/25/20 09:53 Dose: 3 ml Documented by: Amiodarone HCl (Cordarone) 400 mg PO [facility] Last Admin: 04/25/20 21:01 Dose: 400 mg Documented by: Denture Adhesive (Fixodent) 1 applic DENTAL PRN PRN PRN Reason: denture adhesive Last Admin: 04/14/20 13:27 Dose: 1 applic Documented by: Dexamethasone (Decadron) 4 mg IVP Q5M PRN PRN Reason: Nausea unrelieved by Reglan Stop: 04/27/20 07:04 Famotidine (Pepcid Inj) 20 mg IVP ONCE PRN PRN Reason: HEARTBURN Fentanyl (Sublimaze) 50 mcg IVP Q10M PRN PRN Reason: Preop Pain Fentanyl (Sublimaze) 100 mcg IVP ONCE PRN PRN Reason: Per anesthesia for block Fentanyl (Sublimaze) 50 mcg IVP Q5M PRN PRN Reason: Pain level 6-10 PACU Phase I Stop: 04/27/20 07:04 Furosemide (Lasix) 40 mg IVP Q12H [facility] Last Admin: 04/26/20 05:56 Dose: 40 mg Documented by: Hydromorphone HCl (Dilaudid Inj) 0.25 mg IVP Q10M PRN PRN Reason: Pain level 4-6 PACU Phase I Stop: 04/27/20 07:04 Hydromorphone HCl (Dilaudid Inj) 0.5 mg IVP Q10M PRN PRN Reason: Pain level 7-10 PACU Phase I Stop: 04/27/20 07:04 Piperacillin Sod/Tazobactam (Sod 3.375 gm/ Sodium Chloride) 50 mls @ 12.5 mls/hr IV Q12H [facility] Last Admin: 04/26/20 03:17 Dose: 12.5 mls/hr Documented by: Sodium Chloride (Sodium Chloride 0.9%) 1,000 mls @ 30 mls/hr IV .Q24H [facility] Stop: 04/27/20 07:14 Last Admin: 04/26/20 07:18 Dose: 30 mls/hr Documented by: Sodium Chloride (Sodium Chloride 0.9%) 500 mls @ 999 mls/hr IV .Q31M PRN PRN Reason: HYPOTENSION Ipratropium [place] (Atrovent Neb) 0.5 mg INHALATION ONCE PRN PRN Reason: WHEEZING Lidocaine HCl (Lidocaine 1%) 0.1 ml INTRADERMA PRN PRN PRN Reason: anesthetic prior to IV start Stop: 04/27/20 07:03 Lidocaine HCl (Lidocaine 2% Viscous) 1 ml TOPICAL PRN PRN PRN Reason: Anesthetic prior to IV start Meperidine HCl (Demerol) 12.5 mg IVP Q5M PRN PRN Reason: Shivering PACU Phase I Stop: 04/27/20 07:04 Metoclopramide HCl (Reglan) 10 mg IVP ONCE PRN PRN Reason: N/V if zofran ineffective Metoclopramide HCl (Reglan) 10 mg IVP Q5M PRN PRN Reason: Nausea unrelieved by Zofran Stop: 04/27/20 07:04 Metoprolol Tartrate (Lopressor) 75 mg PO BID [facility] Last Admin: 04/25/20 18:04 Dose: 75 mg Documented by: Midazolam HCl (Versed) 2 mg IVP Q5M PRN PRN Reason: Preop Anxiety Midazolam HCl (Versed) 5 mg IVP ONCE PRN PRN Reason: Per anesthesia for block Morphine Sulfate (Morphine) 1 mg IVP Q6H PRN PRN Reason: SEVERE PAIN Last Admin: 04/23/20 11:09 Dose: 1 mg Documented by: Morphine Sulfate (Morphine) 2 mg IVP Q5M PRN PRN Reason: Pain level 2-5 PACU Phase I Stop: 04/27/20 07:04 Morphine Sulfate (Morphine) 2 mg IVP Q2M PRN PRN Reason: Pain level 6-10 PACU Phase I Stop: 04/27/20 07:04 Morphine Sulfate (Morphine) 0 mg IVP Q5M PRN PRN Reason: Breakthrough Pain PACU PhaseII Nystatin (Nystatin) 500,000 unit PO QID [facility] Last Admin: 04/25/20 21:01 Dose: 500,000 unit Documented by: Ondansetron HCl (Zofran) 4 mg IVP Q6H PRN PRN Reason: NAUSEA AND VOMITING Last Admin: 04/25/20 13:49 Dose: 4 mg Documented by: Ondansetron HCl (Zofran) 4 mg IVP Q5M PRN PRN Reason: NAUSEA AND VOMITING Ondansetron HCl (Zofran) 4 mg IVP Q5M PRN PRN Reason: Nausea PACU Phase I Stop: 04/27/20 07:04 Ondansetron HCl (Zofran) 4 mg IVP Q15M PRN PRN Reason: Nausea/Vomiting PACU PHASE II Oxycodone/Acetaminophen (Percocet 10-325 Mg) 1 tab PO Q4H PRN PRN Reason: SEVERE PAIN Oxycodone/Acetaminophen (Percocet 5-325 Mg) 1 tab PO Q4H PRN PRN Reason: MODERATE PAIN Last Admin: 04/25/20 23:32 Dose: 1 tab Documented by: Scopolamine (Transderm-Scop) 1 patch TRANSDERMA ONCE PRN PRN Reason: Nausea/ Vomiting Prophylaxis Sevelamer Carbonate (Renvela) 2,400 mg PO TIDWM [facility] Last Admin: 04/25/20 18:04 Dose: 2,400 mg Documented by: Vitals/I&O/Wt Last Vital Signs Temp 97 F L 04/26/20 09:33 Pulse 64 04/26/20 09:40 Resp 18 04/26/20 09:40 BP 173/69 04/26/20 09:40 Pulse Ox 93 04/26/20 09:40 04/25/20 04/26/20 04/26/20 22:59 06:59 14:59 Intake Total 50 / 50 Output Total 575 / 575 375 / 950 Balance -525 / -525 -375 / -900 Physical Exam Narrative: EXAM NARRATIVE: GENERAL: Patient is alert and is on oxygen by nasal cannula, 4 L/min HEENT: Minimal pallor, no icterus or lymphadenopathy. NECK: Trachea appears to be central. No masses noted. No JVD or thyromegaly appreciated. No carotid bruit. Status post tunneled right subclavian catheter placement for dialysis. RESPIRATORY: Chest is symmetrical. No intercostals muscle retraction or any accessory muscle activation. There is no chest wall tenderness. Breath sounds are heard bilaterally. Breath sounds are diminished up to the mid chest on the right side BREASTS: Deferred. HEART: The PMI could not be palpated. No palpable precordial events. S1 and S2 are normal. No S3 or S4 heard. No pericardial rub or any click heard. ABDOMEN: No vessel pulsations or distention. No tenderness. No organomegaly appreciated. No abdominal bruit. Bowel sounds are normally heard. : Deferred. RECTAL: Deferred. LYMPHATIC: No lymphadenopathy noted in the neck. EXTREMITIES: 1-2+ edema both lower extremities. No cyanosis. MUSCULOSKELETAL: No acute joint deformities or swelling SKIN: There are no significant scars or skin rash noted. NEUROPSYCHIATRIC: No obvious neurological deficits. Urinary Catheter Management^: Torres: Cath Placed During This Visit: yes, but has since been removed by the nurse Reason for Continuing Indwelling Catheter: Acute Urinary Retention or Obstruction Urinary Catheter Date of Insertion: 04/22/20 Urinary Catheter Time of Insertion: 08:47 Date Urinary Catheter Removed: 04/21/20 Time Urinary Catheter Discontinued: 17:30 Data : 04/26/20 03:27 04/26/20 03:27 Micro: Microbiology 04/25/20 22:00 Occult Blood (FIT) - Final Stool - Stool Aspirate 04/25/20 22:00 C.difficile Toxin B Gene (PCR) - Final Stool - Stool Aspirate 04/21/20 11:20 Gram Stain - Final Pleural Fluid Anaerobic Culture - Preliminary Body Fluid Culture - Final 04/21/20 11:20 Fungal Smear - Preliminary Pleural Fluid 04/21/20 11:20 Mycobacterial Smear - Preliminary Body Fluids - Pleura,Rt Lung A&P Assessment and plan (1) New onset atrial fibrillation: Patient is staying in the sinus rhythm. On amiodarone. We will cut back on the dose to 40 mg daily from tomorrow onwards. Status: Acute (2) Acute diastolic heart failure: Heart failure is compensated. Management of fluid status, as per nephrology Status: Acute (3) Pleural effusion: Patient seems to have recurrent pleural effusion on the right side. May need to consider indwelling catheter-will be decided by the pulmonology Status: Acute (4) Metastatic cancer: Patient is on chemotherapy. Seems to be tolerating fairly well. Management as per the oncology service. 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 Currently has no fever. Status: Acute (6) Acute kidney injury: Dialysis as per the nephrology. Planning for subclavian catheter Status: Acute Additional A&P Information Other problems are Anemia Hypoalbuminemia Generalized weakness May continue on the amiodarone and the beta-nola at the current dose. We will cut back on the dose of the amiodarone to 400 mg daily from tomorrow onwards Attestations Medical Necessity Statement*: Disposition as per the primary Coding Level of Care Code Acute Assistant Tennis Coach for [facility] Fwd Diagnoses New onset atrial fibrillation I48.91 Acute diastolic heart failure I50.31 Pleural effusion J90 Metastatic cancer C77.1 Area of secondary neoplastic involvement: lymph node Lymph node location: intrathoracic region Obstructive pneumonia J18.9 Acute kidney injury N17.9
--- NOTE | 2020-04-26 11:32 | P.PN_ITS ---
Subjective Subjective: Interval history: Status post tunnel catheter placement today and I&D of abscess on the left forearm. Post procedure she has no complaints. Vitals and labs have been reviewed. Medications: Reviewed: Yes Vitals/I&O/Wt Last Vital Signs Temp 97 F L 04/26/20 09:33 Pulse 64 04/26/20 09:40 Resp 18 04/26/20 09:40 BP 173/69 04/26/20 09:40 Pulse Ox 93 04/26/20 09:40 04/25/20 04/26/20 04/26/20 22:59 06:59 14:59 Intake Total 50 / 50 Output Total 575 / 575 375 / 950 Balance -525 / -525 -375 / -900 Physical Exam Const: COMMON NORMALS: patient oriented x3 HENMT: COMMON NORMALS: normocephalic, atraumatic, hearing grossly normal bilaterally and external ears normal HEAD & SCALP: normocephalic and atraumatic EXTERNAL EAR: Yes external ears normal Eye: COMMON NORMALS: no scleral icterus GENERAL EYE: appearance normal, both eyes and all related structures Chest: COMMONS NORMALS: normal inspection of the chest and normal palpation of entire chest wall CHEST: Yes Symmetrical chest wall rise Resp: COMMON NORMALS: normal respiratory effort, No retractions and No use of accessory muscles EFFORT & INSPECTION: Yes symmetric chest movement OTHER: b/l basal crackles present. Rt side tunnel catheter site is clean.No hematoma Cardio: COMMON NORMALS: regular rate, regular rhythm, S1 normal heart sound present, S2 normal heart sound present, No gallops present (Cardio), No murmurs present (Cardio), No rub (Cardio) and Peripheral pulses 2+ throughout RATE: regular rate RHYTHM: regular rhythm HEART SOUNDS: S1 normal heart sound present and S2 normal heart sound present PERIPHERAL PULSES: Peripheral pulses 2+ throughout GI: COMMON NORMALS: Normal to inspection, nondistended, normoactive bowel sounds present, Soft to palpation, non-tender, No hepatosplenomegaly present and no masses AUSCULTATION: Yes normoactive bowel sounds PALPATION: Yes Soft to palpation and Yes No hepatosplenomegaly present RECTAL EXAM: deferred Extremity: NARRATIVE EXTREMITY EXAM: 2 + pitting edema present in both L/E Neuro: COMMON NORMALS: patient oriented x3 Urinary Catheter Management^: Torres: Cath Placed During This Visit: yes, but has since been removed by the nurse Reason for Continuing Indwelling Catheter: Acute Urinary Retention or Obstruction Urinary Catheter Date of Insertion: 04/22/20 Urinary Catheter Time of Insertion: 08:47 Date Urinary Catheter Removed: 04/21/20 Time Urinary Catheter Discontinued: 17:30 Data : 04/26/20 03:27 04/26/20 03:27 Micro: Microbiology 04/25/20 22:00 Occult Blood (FIT) - Final Stool - Stool Aspirate 04/25/20 22:00 C.difficile Toxin B Gene (PCR) - Final Stool - Stool Aspirate 04/21/20 11:20 Gram Stain - Final Pleural Fluid Anaerobic Culture - Preliminary Body Fluid Culture - Final 04/21/20 11:20 Fungal Smear - Preliminary Pleural Fluid 04/21/20 11:20 Mycobacterial Smear - Preliminary Body Fluids - Pleura,Rt Lung A&P Assessment and plan (1) Sepsis with acute hypoxic respiratory failure: Status: Acute Qualifiers: Sepsis type: sepsis due to unspecified organism Severe sepsis shock status: without septic shock Qualified Code(s): A41.9 - Sepsis, unspecified organism; R65.20 - Severe sepsis without septic shock; J96.01 - Acute respiratory failure with hypoxia (2) Recurrent right pleural effusion: Status: Acute (3) Metastatic lung cancer (metastasis from lung to other site): Status: Acute Qualifiers: Laterality: right Qualified Code(s): C34.91 - Malignant neoplasm of unspecified part of right bronchus or lung (4) ATN (acute tubular necrosis): Status: Acute (5) Pneumonia: Status: Acute Qualifiers: Laterality: right Lung location: unspecified part of lung Pneumonia type: due to unspecified organism Qualified Code(s): J18.9 - Pneumonia, unspecified organism (6) Hyponatremia: Status: Acute (7) New onset of congestive heart failure: Status: Acute (8) Abnormal transaminases: Status: Acute (9) Leukocytosis: Status: Resolved Qualifiers: Leukocytosis type: unspecified Qualified Code(s): D72.829 - Elevated white blood cell count, unspecified Additional A&P Information #Malignant right pleural effusion: Status post right-sided thoracentesis. Good resolution of pleural effusion. Chest tube has been removed. Given nature of pleural effusion, she will potentially require Pleurx catheter in future, if reaccumulation takes place. #Rt Pneumothorax: S/P thoracentesis and chest tube placement. Serial xary have shown resolution of rt PTX.Continue to monitor with xray chest. #Anemia likely anemia of inflammatory disease: Currently's hemoglobin is 7 today. We will plan to transfuse her 2 units with hemodialysis. #Hypoxic respiratory failure: Multifactorial,(pneumonia, heart failure, bilateral pleural effusion, post obstructive pneumonia from bronchial obs truction). Currently improving, supplemental oxygen requirement is going down currently she is on 4 L oxygen via nasal cannula, sepsis secondary to pneumonia is improving, heart failure is compensated. s/p rt sided thoracentesis. 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 Patient was oliguric but has started making urine on lasix but currently will need extended dialysis for now. Appreciate pulmonary and renal recommendations #Sepsis, likel 2/2 to PNA Present on admission, has now resolved.She has been on broad spectrm abx for extnded period of time (Namely Vancomycin, meropenam, doxycycline ) Currently on Zosyn. We will de- escalate the antibiotic, we will switch her to levofloxacin 750 every 48 hour. Cultures have been negative so far. Mycobacterial Smear - Preliminary:No acid fast bacilli seen: Fungal Smear : No fungal elements seen. No fungi isolated to date. Blood cultures negative till date. MRSA culture nares negative. C. difficile PCR negative. Legionella negative, bacterial antigen panel negative. Currently not on pressors. #Hyponatremia. consistent with SIADH. Possibly it is secondary to lung disease and malignancy. Appreciate nephrology recommendations # New onset atrial fibrillation with RVR. Heart rate is well controlled now with amiodarone and metoprolol T 75 mg q12 h daily. Will start the patient on Ac with eliquis.2.5 mg q12 h daily # Presumed PE, unable to get a V/Q scan due to inability to lie flat. Discussed with Dr. Jordan, findings appear c/w compression from external lung mass rather than PE, heparin drip discontinued. DVT prophylaxis: eliquis Full code Attestations Medical Necessity Statement*: Patient needs dialysis, and she is also being managed for pneumonia. Coding Level of Care Code Acute Director Of Recreation Therapy for Chg Fwd Exam Detailed Diagnoses Sepsis with acute hypoxic respiratory failure A41.9; R65.20; J96.01 Sepsis type: sepsis due to unspecified organism Severe sepsis shock status: without septic shock Recurrent right pleural effusion J90 Metastatic lung cancer (metastasis from lung to other site) C34.91 Laterality: right ATN (acute tubular necrosis) N17.0 Pneumonia J18.9 Laterality: right Lung location: unspecified part of lung Pneumonia type: due to unspecified organism Hyponatremia E87.1 New onset of congestive heart failure I50.9 Abnormal transaminases R74.8 Leukocytosis D72.829 Leukocytosis type: unspecified
--- NOTE | 2020-04-26 11:56 | PM.PN ---
Subjective Subjective: Interval history: Status post tunnel catheter placement today and I&D of abscess on the left forearm. No new issues, she has no cough, hemoptysis. No edema or other SOB Making good urine but not clearing yet Medications: Reviewed: Yes Medication Review Details: Current Medications Acetaminophen (Tylenol) 650 mg PO Q6H PRN PRN Reason: MILD PAIN Last Admin: 04/22/20 02:44 Dose: 650 mg Documented by: Albuterol Sulfate (Albuterol) 2.5 mg INHALATION ONCE PRN PRN Reason: WHEEZING Albuterol/Ipratropium (Duoneb) 3 ml INHALATION Q6H PRN PRN Reason: SHORTNESS OF BREATH Last Admin: 04/25/20 09:53 Dose: 3 ml Documented by: Amiodarone HCl (Cordarone) 400 mg PO [facility] Last Admin: 04/25/20 21:01 Dose: 400 mg Documented by: Denture Adhesive (Fixodent) 1 applic DENTAL PRN PRN PRN Reason: denture adhesive Last Admin: 04/14/20 13:27 Dose: 1 applic Documented by: Dexamethasone (Decadron) 4 mg IVP Q5M PRN PRN Reason: Nausea unrelieved by Reglan Stop: 04/27/20 07:04 Famotidine (Pepcid Inj) 20 mg IVP ONCE PRN PRN Reason: HEARTBURN Fentanyl (Sublimaze) 50 mcg IVP Q10M PRN PRN Reason: Preop Pain Fentanyl (Sublimaze) 100 mcg IVP ONCE PRN PRN Reason: Per anesthesia for block Fentanyl (Sublimaze) 50 mcg IVP Q5M PRN PRN Reason: Pain level 6-10 PACU Phase I Stop: 04/27/20 07:04 Furosemide (Lasix) 40 mg IVP Q12H [facility] Last Admin: 04/26/20 05:56 Dose: 40 mg Documented by: Hydromorphone HCl (Dilaudid Inj) 0.25 mg IVP Q10M PRN PRN Reason: Pain level 4-6 PACU Phase I Stop: 04/27/20 07:04 Hydromorphone HCl (Dilaudid Inj) 0.5 mg IVP Q10M PRN PRN Reason: Pain level 7-10 PACU Phase I Stop: 04/27/20 07:04 Piperacillin Sod/Tazobactam (Sod 3.375 gm/ Sodium Chloride) 50 mls @ 12.5 mls/hr IV Q12H [facility] Last Admin: 04/26/20 03:17 Dose: 12.5 mls/hr Documented by: Sodium Chloride (Sodium Chloride 0.9%) 1,000 mls @ 30 mls/hr IV .Q24H [facility] Stop: 04/27/20 07:14 Last Admin: 04/26/20 07:18 Dose: 30 mls/hr Documented by: Sodium Chloride (Sodium Chloride 0.9%) 500 mls @ 999 mls/hr IV .Q31M PRN PRN Reason: HYPOTENSION Ipratropium Benton (Atrovent Neb) 0.5 mg INHALATION ONCE PRN PRN Reason: WHEEZING Lidocaine HCl (Lidocaine 1%) 0.1 ml INTRADERMA PRN PRN PRN Reason: anesthetic prior to IV start Stop: 04/27/20 07:03 Lidocaine HCl (Lidocaine 2% Viscous) 1 ml TOPICAL PRN PRN PRN Reason: Anesthetic prior to IV start Meperidine HCl (Demerol) 12.5 mg IVP Q5M PRN PRN Reason: Shivering PACU Phase I Stop: 04/27/20 07:04 Metoclopramide HCl (Reglan) 10 mg IVP ONCE PRN PRN Reason: N/V if zofran ineffective Metoclopramide HCl (Reglan) 10 mg IVP Q5M PRN PRN Reason: Nausea unrelieved by Zofran Stop: 04/27/20 07:04 Metoprolol Tartrate (Lopressor) 75 mg PO BID [facility] Last Admin: 04/25/20 18:04 Dose: 75 mg Documented by: Midazolam HCl (Versed) 2 mg IVP Q5M PRN PRN Reason: Preop Anxiety Midazolam HCl (Versed) 5 mg IVP ONCE PRN PRN Reason: Per anesthesia for block Morphine Sulfate (Morphine) 1 mg IVP Q6H PRN PRN Reason: SEVERE PAIN Last Admin: 04/23/20 11:09 Dose: 1 mg Documented by: Morphine Sulfate (Morphine) 2 mg IVP Q5M PRN PRN Reason: Pain level 2-5 PACU Phase I Stop: 04/27/20 07:04 Morphine Sulfate (Morphine) 2 mg IVP Q2M PRN PRN Reason: Pain level 6-10 PACU Phase I Stop: 04/27/20 07:04 Morphine Sulfate (Morphine) 0 mg IVP Q5M PRN PRN Reason: Breakthrough Pain PACU PhaseII Nystatin (Nystatin) 500,000 unit PO QID [facility] Last Admin: 04/25/20 21:01 Dose: 500,000 unit Documented by: Ondansetron HCl (Zofran) 4 mg IVP Q6H PRN PRN Reason: NAUSEA AND VOMITING Last Admin: 04/25/20 13:49 Dose: 4 mg Documented by: Ondansetron HCl (Zofran) 4 mg IVP Q5M PRN PRN Reason: NAUSEA AND VOMITING Ondansetron HCl (Zofran) 4 mg IVP Q5M PRN PRN Reason: Nausea PACU Phase I Stop: 04/27/20 07:04 Ondansetron HCl (Zofran) 4 mg IVP Q15M PRN PRN Reason: Nausea/Vomiting PACU PHASE II Oxycodone/Acetaminophen (Percocet 10-325 Mg) 1 tab PO Q4H PRN PRN Reason: SEVERE PAIN Oxycodone/Acetaminophen (Percocet 5-325 Mg) 1 tab PO Q4H PRN PRN Reason: MODERATE PAIN Last Admin: 04/25/20 23:32 Dose: 1 tab Documented by: Scopolamine (Transderm-Scop) 1 patch TRANSDERMA ONCE PRN PRN Reason: Nausea/ Vomiting Prophylaxis Sevelamer Carbonate (Renvela) 2,400 mg PO TIDWM [facility] Last Admin: 04/25/20 18:04 Dose: 2,400 mg Documented by: Vitals/I&O/Wt Last Vital Signs Temp 97.2 F L 04/26/20 11:40 Pulse 70 04/26/20 11:40 Resp 18 04/26/20 11:40 BP 133/72 04/26/20 11:40 Pulse Ox 100 04/26/20 11:40 04/25/20 04/26/20 04/26/20 22:59 06:59 14:59 Intake Total 50 / 50 Output Total 575 / 575 375 / 950 Balance -525 / -525 -375 / -900 Physical Exam Narrative: EXAM NARRATIVE: Constitutional: Awake, conversant, looks tired HEENT: Wet mucosa, no jvp, non icteric Lungs: Bilaterally clear without discernible wheeze or rales in all lung zones CVS: irregular Abdo: Soft, BS ok Ext 4: 1+ edema, peripheral perfusion with no cyanosis Neurological: Grossly non-focal Urinary Catheter Management^: Torres: Cath Placed During This Visit: yes, but has since been removed by the nurse Reason for Continuing Indwelling Catheter: Acute Urinary Retention or Obstruction Urinary Catheter Date of Insertion: 04/22/20 Urinary Catheter Time of Insertion: 08:47 Date Urinary Catheter Removed: 04/21/20 Time Urinary Catheter Discontinued: 17:30 Data : 04/26/20 03:27 04/26/20 03:27 Micro: Microbiology 04/25/20 22:00 Occult Blood (FIT) - Final Stool - Stool Aspirate 04/25/20 22:00 C.difficile Toxin B Gene (PCR) - Final Stool - Stool Aspirate 04/21/20 11:20 Gram Stain - Final Pleural Fluid Anaerobic Culture - Preliminary Body Fluid Culture - Final 04/21/20 11:20 Fungal Smear - Preliminary Pleural Fluid 04/21/20 11:20 Mycobacterial Smear - Preliminary Body Fluids - Pleura,Rt Lung A&P Additional A&P Information 1. DIONISIO - ATN in the setting of contrast and Vanco tubular toxicity - Good urine output but not yet recovering renal function - Will plan on dialysis today; 3K, UF 1L - avoid the usuals - avoid the usuals 2. Lytes - with minor non critical aberration including mild SIADH - monitor for now 3. New diagnosis of Small Cell lung cancer - s/p Etoposide and Cisplatin dosing per Oncology 4. Post obstructive pneumonia - Zosyn on board - cultures noted; unrevealing - ms/p chest tube 5. Hyperphos - on binder therapy 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
[2020-04-26] MEDS: nystatin 100,000 unit/mL UDC 5 mL 500000 UNIT PO ×2 (14:12→19:57)
--- NOTE | 2020-04-26 14:35 | PC.NURSE ---
to dialysis per w/c. no acute distress noted. pt a/o.
--- NOTE | 2020-04-26 14:35 | PM.OP ---
Operative Report Date of procedure: April 26, 2020 Pre-op Diagnosis: 1. Abscess left forearm 2. Chronic renal failure requiring long-term dialysis access Post-op diagnosis: same Procedure Done: 1. Incision and drainage of left forearm abscess measuring 4 x 4 cm 2. Removal of temporary dialysis catheter from right internal jugular vein 3. Placement of tunneled AshSplit hemodialysis catheter in the right internal jugular vein 4. Fluoroscopic guidance and interpretation for placement of catheter 5. Ultrasound guidance and interpretation for placement of catheter Specimens removed/disposition: Aerobic and anaerobic wound cultures Surgeon: Setve Caal Anesthesia: MAC Estimated blood loss (mL): 25 Condition: stable Disposition: PACU Procedure: The patient was taken to the operating room and placed under MAC after IV antibiotic had been administered. The chest and neck were prepped and draped in a sterile manner bilaterally. An attempt was made at passing the guidewire through the temporary dialysis catheter in the right internal jugular vein, but the wire could not be passed even though it withdrew blood and flushed easily and therefore the temporary dialysis catheter was removed from the right internal jugular vein. Pressure was held for a few minutes. An ultrasound of the right internal jugular vein revealed patent flow, no thrombus identified. Using introducer needle the internal jugular vein on the right side was accessed and guidewire passed into the right atrium under fluoroscopy. Under fluoroscopy the location for the dialysis catheter was marked. Using 11 blade a skin incision was extended at the vein access site as well as the previously marked location on the right chest wall. The dialysis catheter was attached to the tunneler and passed subcutaneously, exiting at the venous access site. Serial dilators were passed over the guidewire under fluoroscopy. Finally the dilator peel-away sheath was passed over the guidewire and the inner dilator and guidewire was removed and the dialysis catheter was introduced into the right internal jugular vein as the peel-away sheath was removed. The tip of the catheter was noted to be in the right atrium. Both ports of the catheter marilee blood and flushed easily. The catheter was sutured to the skin using 2-0 Prolene and the venous access site was closed with 4-0 Monocryl and Dermabond. A total of 5 mL of 1:10,000 heparin was injected into the 2 ports of the dialysis catheter. Fluoroscopic guidance and interpretation for passage of guidewire and dilator and placement of catheter in the right atrium. The left forearm was prepped and draped in a sterile manner. Using 11 blade a 3 cm longitudinal incision was made, subcutaneous tissue was divided with drainage of hair pus and necrotic tissue was noted. Loculations were taken down bluntly, wound was irrigated saline and packed with Kerlix gauze, ABD and wrapped with Kerlix.
[2020-04-26] MEDS: sevelamer 800 mg Tablet 2400 MG PO ×2 (15:08→19:54)
[2020-04-26] MEDS: metoprolol tartrate 50 mg Tablet 75 MG PO (19:55)
[2020-04-26] MEDS: amiodarone 200 mg Tablet PO (19:56)
[2020-04-26] MEDS: levofloxacin-dextrose 5 % 500 MG/100 ML PREMIX 100 MG IV (19:57)
[2020-04-26 20:14] LABS: Glucose Point of Care 135 mg/dL (70-110)
--- NOTE | 2020-04-26 20:16 | PC.NURSE ---
PT CAME BACK FROM DIALYSIS. MEDS WERE GIVEN LATE DUE TO BEING OFF THE FLOOR. WILL CONTINUE TO MONITOR.
[2020-04-26] MEDS: oxyCODONE-APAP 5-325 mg Tablet 1 TAB PO (22:19)
[2020-04-27] VITALS (15 sets, daily range): BP systolic 95–133; BP diastolic 51–72; PULSE 61–73; RESP 16–22; TEMP 36.5–36.8; O2SAT 88–100
--- NOTE | 2020-04-27 00:01 | PC.NURSE ---
PT HAS BEEN UP TO THE BSC 3X WITH X-SMALL TARRY STOOLS. PT C/O SOME PAIN IN THAT AREA. PT STATES THAT THEY CAN NOT DIFFERENTIATE IF IT IS MORE INTERNAL OR FROM EXCESSIVE WIPING. PT STATES THAT THEY WILL TALK TO THE DOCTOR IN THE MORNING ABOUT IT. WILL CONTINUE TO MONITOR.
[2020-04-27] MEDS: oxyCODONE-APAP 5-325 mg Tablet 1 TAB PO ×2 (03:01→21:26)
[2020-04-27 06:42] LABS: Glucose Point of Care 92 mg/dL (70-110)
--- NOTE | 2020-04-27 06:44 | PC.NURSE ---
PT STATES THAT THE LAST BM DIDN'T HURT. PT IS RESTING IN BED AND DENIES PAIN AT THIS TIME. PT DID RECEIVE PRN PAIN MEDICATION 2X THROUGHOUT THE NIGHT FOR GEN BODY PAIN. WILL CONTINUE TO MONITOR.
[2020-04-27] MEDS: metoprolol tartrate 50 mg Tablet 75 MG PO ×2 (08:39→17:36)
[2020-04-27] MEDS: nystatin 100,000 unit/mL UDC 5 mL 500000 UNIT PO ×3 (08:39→20:26)
[2020-04-27] MEDS: amiodarone 200 mg Tablet PO ×2 (08:40→17:36)
[2020-04-27] MEDS: sevelamer 800 mg Tablet 2400 MG PO ×2 (08:40→17:37)
[2020-04-27] MEDS: apixaban 5 mg Tablet 2.5 MG PO (08:40)
[2020-04-27] MEDS: FUROsemide 10 mg/mL SDV 4mL 40 MG IVP ×2 (08:41→19:31)
--- NOTE | 2020-04-27 10:20 | P.PN_ITS ---
Subjective Subjective: Interval history: Dialysis went well yesterday, line is working well. Edema in the legs, breathing comfortably. Some melena and to receive PRBCs today No uremic Sx Torres uncomfortable and needs to be removed Medications: Reviewed: Yes Medication Review Details: Current Medications Acetaminophen (Tylenol) 650 mg PO Q6H PRN PRN Reason: MILD PAIN Last Admin: 04/22/20 02:44 Dose: 650 mg Documented by: Albuterol Sulfate (Albuterol) 2.5 mg INHALATION ONCE PRN PRN Reason: WHEEZING Albuterol/Ipratropium (Duoneb) 3 ml INHALATION Q6H PRN PRN Reason: SHORTNESS OF BREATH Last Admin: 04/25/20 09:53 Dose: 3 ml Documented by: Amiodarone HCl (Cordarone) 400 mg PO [facility] Last Admin: 04/25/20 21:01 Dose: 400 mg Documented by: Denture Adhesive (Fixodent) 1 applic DENTAL PRN PRN PRN Reason: denture adhesive Last Admin: 04/14/20 13:27 Dose: 1 applic Documented by: Dexamethasone (Decadron) 4 mg IVP Q5M PRN PRN Reason: Nausea unrelieved by Reglan Stop: 04/27/20 07:04 Famotidine (Pepcid Inj) 20 mg IVP ONCE PRN PRN Reason: HEARTBURN Fentanyl (Sublimaze) 50 mcg IVP Q10M PRN PRN Reason: Preop Pain Fentanyl (Sublimaze) 100 mcg IVP ONCE PRN PRN Reason: Per anesthesia for block Fentanyl (Sublimaze) 50 mcg IVP Q5M PRN PRN Reason: Pain level 6-10 PACU Phase I Stop: 04/27/20 07:04 Furosemide (Lasix) 40 mg IVP Q12H [facility] Last Admin: 04/26/20 05:56 Dose: 40 mg Documented by: Hydromorphone HCl (Dilaudid Inj) 0.25 mg IVP Q10M PRN PRN Reason: Pain level 4-6 PACU Phase I Stop: 04/27/20 07:04 Hydromorphone HCl (Dilaudid Inj) 0.5 mg IVP Q10M PRN PRN Reason: Pain level 7-10 PACU Phase I Stop: 04/27/20 07:04 Piperacillin Sod/Tazobactam (Sod 3.375 gm/ Sodium Chloride) 50 mls @ 12.5 mls/hr IV Q12H [facility] Last Admin: 04/26/20 03:17 Dose: 12.5 mls/hr Documented by: Sodium Chloride (Sodium Chloride 0.9%) 1,000 mls @ 30 mls/hr IV .Q24H [facility] Stop: 04/27/20 07:14 Last Admin: 04/26/20 07:18 Dose: 30 mls/hr Documented by: Sodium Chloride (Sodium Chloride 0.9%) 500 mls @ 999 mls/hr IV .Q31M PRN PRN Reason: HYPOTENSION Ipratropium [place] (Atrovent Neb) 0.5 mg INHALATION ONCE PRN PRN Reason: WHEEZING Lidocaine HCl (Lidocaine 1%) 0.1 ml INTRADERMA PRN PRN PRN Reason: anesthetic prior to IV start Stop: 04/27/20 07:03 Lidocaine HCl (Lidocaine 2% Viscous) 1 ml TOPICAL PRN PRN PRN Reason: Anesthetic prior to IV start Meperidine HCl (Demerol) 12.5 mg IVP Q5M PRN PRN Reason: Shivering PACU Phase I Stop: 04/27/20 07:04 Metoclopramide HCl (Reglan) 10 mg IVP ONCE PRN PRN Reason: N/V if zofran ineffective Metoclopramide HCl (Reglan) 10 mg IVP Q5M PRN PRN Reason: Nausea unrelieved by Zofran Stop: 04/27/20 07:04 Metoprolol Tartrate (Lopressor) 75 mg PO BID [facility] Last Admin: 04/25/20 18:04 Dose: 75 mg Documented by: Midazolam HCl (Versed) 2 mg IVP Q5M PRN PRN Reason: Preop Anxiety Midazolam HCl (Versed) 5 mg IVP ONCE PRN PRN Reason: Per anesthesia for block Morphine Sulfate (Morphine) 1 mg IVP Q6H PRN PRN Reason: SEVERE PAIN Last Admin: 04/23/20 11:09 Dose: 1 mg Documented by: Morphine Sulfate (Morphine) 2 mg IVP Q5M PRN PRN Reason: Pain level 2-5 PACU Phase I Stop: 04/27/20 07:04 Morphine Sulfate (Morphine) 2 mg IVP Q2M PRN PRN Reason: Pain level 6-10 PACU Phase I Stop: 04/27/20 07:04 Morphine Sulfate (Morphine) 0 mg IVP Q5M PRN PRN Reason: Breakthrough Pain PACU PhaseII Nystatin (Nystatin) 500,000 unit PO QID [facility] Last Admin: 04/25/20 21:01 Dose: 500,000 unit Documented by: Ondansetron HCl (Zofran) 4 mg IVP Q6H PRN PRN Reason: NAUSEA AND VOMITING Last Admin: 04/25/20 13:49 Dose: 4 mg Documented by: Ondansetron HCl (Zofran) 4 mg IVP Q5M PRN PRN Reason: NAUSEA AND VOMITING Ondansetron HCl (Zofran) 4 mg IVP Q5M PRN PRN Reason: Nausea PACU Phase I Stop: 04/27/20 07:04 Ondansetron HCl (Zofran) 4 mg IVP Q15M PRN PRN Reason: Nausea/Vomiting PACU PHASE II Oxycodone/Acetaminophen (Percocet 10-325 Mg) 1 tab PO Q4H PRN PRN Reason: SEVERE PAIN Oxycodone/Acetaminophen (Percocet 5-325 Mg) 1 tab PO Q4H PRN PRN Reason: MODERATE PAIN Last Admin: 04/25/20 23:32 Dose: 1 tab Documented by: Scopolamine (Transderm-Scop) 1 patch TRANSDERMA ONCE PRN PRN Reason: Nausea/ Vomiting Prophylaxis Sevelamer Carbonate (Renvela) 2,400 mg PO TIDWM [facility] Last Admin: 04/25/20 18:04 Dose: 2,400 mg Documented by: Vitals/I&O/Wt Last Vital Signs Temp 97.9 F 04/27/20 07:51 Pulse 69 04/27/20 08:22 Resp 18 04/27/20 08:22 BP 128/68 04/27/20 09:49 Pulse Ox 100 04/27/20 08:22 04/26/20 04/27/20 04/27/20 22:59 06:59 14:59 Intake Total 240 / 360 120 / 120 Output Total 470 / 470 550 / 550 Balance -230 / -110 -430 / -430 Physical Exam Narrative: EXAM NARRATIVE: Constitutional: Awake, conversant, looks tired HEENT: Wet mucosa, no jvp, non icteric Lungs: Bilaterally clear without discernible wheeze or rales in all lung zones CVS: irregular Abdo: Soft, BS ok Ext 4: 1+ edema, peripheral perfusion with no cyanosis Neurological: Grossly non-focal Urinary Catheter Management^: Torres: Cath Placed During This Visit: yes, but has since been removed by the nurse Reason for Continuing Indwelling Catheter: Acute Urinary Retention or Obstruction Urinary Catheter Date of Insertion: 04/22/20 Urinary Catheter Time of Insertion: 08:47 Date Urinary Catheter Removed: 04/21/20 Time Urinary Catheter Discontinued: 17:30 Data : 04/26/20 03:27 04/26/20 03:27 Micro: Microbiology 04/26/20 09:08 Gram Stain - Final Arm - #1 04/21/20 11:20 Gram Stain - Final Pleural Fluid Anaerobic Culture - Preliminary Body Fluid Culture - Final A&P Additional A&P Information 1. DIONISIO - ATN in the setting of contrast and Vanco tubular toxicity - Good urine output but not yet recovering renal function - dialyzed yesterday; plan next session on Wednesday - am renal panel - avoid the usuals 2. Lytes - with minor non critical aberration including mild SIADH - monitor for now 3. New diagnosis of Small Cell lung cancer - s/p Etoposide and Cisplatin dosing per Oncology 4. Post obstructive pneumonia - Zosyn on board - cultures noted; unrevealing - s/p chest tube 5. Hyperphos - on binder therapy 6. Anemia - for 2 units today - anticoagulation held 7. 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
[2020-04-27] MEDS: sodium chloride 0.9% (100 ml) 100 ML (10:53)
[2020-04-27 11:30] LABS: Glucose Point of Care 106 mg/dL (70-110)
--- NOTE | 2020-04-27 12:19 | PM.PN ---
Subjective Subjective: Interval history: Patient has been doing well overnight, no issues Vitals/I&O/Wt Last Vital Signs Temp 98.2 F 04/27/20 12:00 Pulse 65 04/27/20 12:00 Resp 16 04/27/20 12:00 BP 98/57 04/27/20 12:00 Pulse Ox 88 L 04/27/20 12:00 04/26/20 04/27/20 04/27/20 22:59 06:59 14:59 Intake Total 240 / 360 120 / 120 Output Total 470 / 470 550 / 550 Balance -230 / -110 -430 / -430 Physical Exam Narrative: EXAM NARRATIVE: Right IJ tunneled hemodialysis catheter in place Left forearm: Dressings removed, no significant bleeding, no significant necrotic tissue, wound was irrigated with saline and packed with 4 x 4 gauze Urinary Catheter Management^: Torres: Cath Placed During This Visit: yes, but has since been removed by the nurse Reason for Continuing Indwelling Catheter: Acute Urinary Retention or Obstruction Urinary Catheter Date of Insertion: 04/22/20 Urinary Catheter Time of Insertion: 08:47 Date Urinary Catheter Removed: 04/21/20 Time Urinary Catheter Discontinued: 17:30 Data : 04/26/20 03:27 04/26/20 03:27 Micro: Microbiology 04/26/20 09:08 Gram Stain - Final Arm - #1 04/21/20 11:20 Gram Stain - Final Pleural Fluid Anaerobic Culture - Preliminary Body Fluid Culture - Final A&P Assessment and plan (1) Abscess: Continue with wet-to-dry dressing changes once daily Wound cultures pending Okay to start Eliquis Status: Acute Attestations Medical Necessity Statement*: Status post incision and drainage of left forearm abscess Coding Level of Care Code 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
--- NOTE | 2020-04-27 15:46 | PM.PN ---
Subjective Subjective: Interval history: Good improvement in SOB,Suplemental oxygen requirement is progressively going down,currently on 2l o2 via nasal canula. She was complaning of black tarry stool.Hemoglobin has decreased to 7. She is being transfused 1 u PRBC and her eliquis is being held. Vitals and labs have been reviewed. Medications: Reviewed: Yes Vitals/I&O/Wt Last Vital Signs Temp 98.2 F 04/27/20 12:00 Pulse 67 04/27/20 15:00 Resp 22 H 04/27/20 15:00 BP 133/72 04/27/20 15:00 Pulse Ox 88 L 04/27/20 12:00 04/27/20 04/27/20 04/27/20 06:59 14:59 22:59 Intake Total 120 / 120 350 / 470 Output Total 550 / 550 Balance -430 / -430 350 / -80 Physical Exam Narrative: EXAM NARRATIVE: Constitutional: Awake, conversant, looks tired HEENT: Wet mucosa, no jvp, non icteric Lungs: Bilaterally clear without discernible wheeze or rales in all lung zones CVS: irregular Abdo: Soft, BS ok Ext 4: 1+ edema, peripheral perfusion with no cyanosis Neurological: Grossly non-focal Const: COMMON NORMALS: patient oriented x3 HENMT: COMMON NORMALS: normocephalic, atraumatic, hearing grossly normal bilaterally and external ears normal HEAD & SCALP: normocephalic and atraumatic EXTERNAL EAR: Yes external ears normal Eye: COMMON NORMALS: no scleral icterus GENERAL EYE: appearance normal, both eyes and all related structures Chest: COMMONS NORMALS: normal inspection of the chest and normal palpation of entire chest wall CHEST: Yes Symmetrical chest wall rise Resp: COMMON NORMALS: normal respiratory effort, No retractions and No use of accessory muscles EFFORT & INSPECTION: Yes symmetric chest movement OTHER: b/l basal crackles present. Rt side tunnel catheter site is clean.No hematoma Cardio: COMMON NORMALS: regular rate, regular rhythm, S1 normal heart sound present, S2 normal heart sound present, No gallops present (Cardio), No murmurs present (Cardio), No rub (Cardio) and Peripheral pulses 2+ throughout RATE: regular rate RHYTHM: regular rhythm HEART SOUNDS: S1 normal heart sound present and S2 normal heart sound present PERIPHERAL PULSES: Peripheral pulses 2+ throughout GI: COMMON NORMALS: Normal to inspection, nondistended, normoactive bowel sounds present, Soft to palpation, non-tender, No hepatosplenomegaly present and no masses AUSCULTATION: Yes normoactive bowel sounds PALPATION: Yes Soft to palpation and Yes No hepatosplenomegaly present RECTAL EXAM: deferred Extremity: NARRATIVE EXTREMITY EXAM: 2 + pitting edema present in both L/E Neuro: COMMON NORMALS: patient oriented x3 Urinary Catheter Management^: Torres: Cath Placed During This Visit: yes, but has since been removed by the nurse Reason for Continuing Indwelling Catheter: Acute Urinary Retention or Obstruction Urinary Catheter Date of Insertion: 04/22/20 Urinary Catheter Time of Insertion: 08:47 Date Urinary Catheter Removed: 04/21/20 Time Urinary Catheter Discontinued: 17:30 Data : 04/26/20 03:27 04/26/20 03:27 Micro: Microbiology 04/26/20 09:08 Anaerobic Culture - Preliminary Arm - #2 04/21/20 11:20 Gram Stain - Final Pleural Fluid Anaerobic Culture - Preliminary Body Fluid Culture - Final 04/26/20 09:08 Gram Stain - Final Arm - #1 Abscess Culture - Preliminary A&P Assessment and plan (1) Sepsis with acute hypoxic respiratory failure: Status: Acute Qualifiers: Sepsis type: sepsis due to unspecified organism Severe sepsis shock status: without septic shock Qualified Code(s): A41.9 - Sepsis, unspecified organism; R65.20 - Severe sepsis without septic shock; J96.01 - Acute respiratory failure with hypoxia (2) Recurrent right pleural effusion: Status: Acute (3) Metastatic lung cancer (metastasis from lung to other site): Status: Acute Qualifiers: Laterality: right Qualified Code(s): C34.91 - Malignant neoplasm of unspecified part of right bronchus or lung (4) ATN (acute tubular necrosis): Status: Acute (5) Pneumonia: Status: Acute Qualifiers: Pneumonia type: due to unspecified organism Laterality: right Lung location: unspecified part of lung Qualified Code(s): J18.9 - Pneumonia, unspecified organism (6) Hyponatremia: Status: Acute (7) New onset of congestive heart failure: Status: Acute (8) Abnormal transaminases: Status: Acute (9) Leukocytosis: Status: Resolved Qualifiers: Leukocytosis type: unspecified Qualified Code(s): D72.829 - Elevated white blood cell count, unspecified Additional A&P Information #Malignant right pleural effusion: Status post right-sided thoracentesis. Good resolution of pleural effusion. Chest tube has been removed. Given nature of pleural effusion, she will potentially require Pleurx catheter in future, if reaccumulation takes place. #Rt Pneumothorax: S/P thoracentesis and chest tube placement. Serial xary have shown resolution of rt PTX.Continue to monitor with xray chest. #Anemia likely anemia of inflammatory disease: Currently's hemoglobin is 7 today. We will plan to transfuse her 2 units with hemodialysis. #Hypoxic respiratory failure: Multifactorial,(pneumonia, heart failure, bilateral pleural effusion, post obstructive pneumonia from bronchial obstruction). Currently improving, supplemental oxygen requirement is going down currently she is on 4 L oxygen via nasal cannula, sepsis secondary to pneumonia is improving, heart failure is compensated. s/p rt sided thoracentesis. 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 Patient was oliguric but has started making urine on lasix but currently will need extended dialysis for now. Appreciate pulmonary and renal recommendations #Sepsis, likel 2/2 to PNA Present on admission, has now resolved.She has been on broad spectrm abx for extnded period of time (Namely Vancomycin, meropenam, doxycycline ) Currently on Zosyn. We will de-escalate the antibiotic, we will switch her to levofloxacin 750 every 48 hour. Cultures have been negative so far. Mycobacterial Smear - Preliminary:No acid fast bacilli seen: Fungal Smear : No fungal elements seen. No fungi isolated to date. Blood cultures negative till date. MRSA culture nares negative. C. difficile PCR negative. Legionella negative, bacterial antigen panel negative. Currently not on pressors. #Hyponatremia. consistent with SIADH. Possibly it is secondary to lung disease and malignancy. Appreciate nephrology recommendations # New onset atrial fibrillation with RVR. Heart rate is well controlled now with amiodarone and metoprolol T 75 mg q12 h daily. Hold eliquis.2.5 mg q12 h daily because of uri # Presumed PE, unable to get a V/Q scan due to inability to lie flat.findings appear c/w compression from external lung mass rather than PE, heparin drip was discontinued. DVT prophylaxis: eliquis Full code Attestations Medical Necessity Statement*: Patient need to be in hospital for management of r/f 2/2 to PNA, as well as for management of ARF. 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 [facility] Fwd Diagnoses Sepsis with acute hypoxic respiratory failure A41.9; R65.20; J96.01 Sepsis type: sepsis due to unspecified organism Severe sepsis shock status: without septic shock Recurrent right pleural effusion J90 Metastatic lung cancer (metastasis from lung to other site) C34.91 Laterality: right ATN (acute tubular necrosis) N17.0 Pneumonia J18.9 Pneumonia type: due to unspecified organism Laterality: right Lung location: unspecified part of lung Hyponatremia E87.1 New onset of congestive heart failure I50.9 Abnormal transaminases R74.8 Leukocytosis D72.829 Leukocytosis type: unspecified
--- NOTE | 2020-04-27 15:49 | PM.PN ---
Subjective Subjective: Interval history: 64-year-old lady admitted with upper respiratory tract infection symptoms on 04/08/2020 with diarrhea and polydipsia. CT suggestive of right hilar and suprahilar mass with compression of the distal right main pulmonary artery and partial occlusion of right upper lobe and right middle lobe pulmonary arteries and satellite lesions on anterior chest wall, mediastinum and right middle lobe extending along the fissure with subcarinal and bilateral hilar lymphadenopathy and numerous metastatic lesions on left lung and both hepatic lobes. She also had postobstructive pneumonia. On 04/11/2020 she underwent right thoracentesis and ultrasound directed biopsy of metastatic liver lesion which showed small cell cancer and received chemotherapy with carboplatin and etoposide. Over the course of her stay she went to atrial fibrillation and developed renal failure. Last 24 hr: She had dialysis yesterday. She is breathing comfortably with no CP and palpitations. Some melena and to receive PRBCs earlier today. No events on telemetry. She is tired of being in the hospital. Medications: Reviewed: Yes Medication Review Details: Current Medications Acetaminophen (Tylenol) 650 mg PO Q6H PRN PRN Reason: MILD PAIN Last Admin: 04/22/20 02:44 Dose: 650 mg Documented by: Albuterol Sulfate (Albuterol) 2.5 mg INHALATION ONCE PRN PRN Reason: WHEEZING Albuterol/Ipratropium (Duoneb) 3 ml INHALATION Q6H PRN PRN Reason: SHORTNESS OF BREATH Last Admin: 04/25/20 09:53 Dose: 3 ml Documented by: Amiodarone HCl (Cordarone) 200 mg PO BID [facility], [facility] Last Admin: 04/27/20 08:40 Dose: 200 mg Documented by: Apixaban (Eliquis) 2.5 mg PO Q12H [facility], [facility] Last Admin: 04/27/20 08:40 Dose: 2.5 mg Documented by: Denture Adhesive (Fixodent) 1 applic DENTAL PRN PRN PRN Reason: denture adhesive Last Admin: 04/14/20 13:27 Dose: 1 applic Documented by: Famotidine (Pepcid Inj) 20 mg IVP ONCE PRN PRN Reason: HEARTBURN Fentanyl (Sublimaze) 50 mcg IVP Q10M PRN PRN Reason: Preop Pain Fentanyl (Sublimaze) 100 mcg IVP ONCE PRN PRN Reason: Per anesthesia for block Furosemide (Lasix) 40 mg IVP Q12H [facility], [facility] Last Admin: 04/27/20 08:41 Dose: 40 mg Documented by: Sodium Chloride (Sodium Chloride 0.9%) 500 mls @ 999 mls/hr IV .Q31M PRN PRN Reason: HYPOTENSION Levofloxacin/Dextrose (Levaquin-D5w) 500 mg in 100 mls @ 100 mls/hr IV Q48H [facility], [facility]; Protocol Last Admin: 04/26/20 19:57 Dose: 100 mls/hr Documented by: Ipratropium [place] (Atrovent Neb) 0.5 mg INHALATION ONCE PRN PRN Reason: WHEEZING Lidocaine HCl (Lidocaine 2% Viscous) 1 ml TOPICAL PRN PRN PRN Reason: Anesthetic prior to IV start Loperamide HCl (Imodium Capsule) 2 mg PO QID PRN PRN Reason: DIARRHEA Metoclopramide HCl (Reglan) 10 mg IVP ONCE PRN PRN Reason: N/V if zofran ineffective Metoprolol Tartrate (Lopressor) 75 mg PO BID [facility] Last Admin: 04/27/20 08:39 Dose: 75 mg Documented by: Midazolam HCl (Versed) 2 mg IVP Q5M PRN PRN Reason: Preop Anxiety Midazolam HCl (Versed) 5 mg IVP ONCE PRN PRN Reason: Per anesthesia for block Morphine Sulfate (Morphine) 1 mg IVP Q6H PRN PRN Reason: SEVERE PAIN Last Admin: 04/23/20 11:09 Dose: 1 mg Documented by: Morphine Sulfate (Morphine) 0 mg IVP Q5M PRN PRN Reason: Breakthrough Pain PACU PhaseII Nystatin (Nystatin) 500,000 unit PO QID [facility], [facility] Last Admin: 04/27/20 14:29 Dose: Not Given Documented by: Ondansetron HCl (Zofran) 4 mg IVP Q6H PRN PRN Reason: NAUSEA AND VOMITING Last Admin: 04/25/20 13:49 Dose: 4 mg Documented by: Ondansetron HCl (Zofran) 4 mg IVP Q5M PRN PRN Reason: NAUSEA AND VOMITING Ondansetron HCl (Zofran) 4 mg IVP Q15M PRN PRN Reason: Nausea/Vomiting PACU PHASE II Oxycodone/Acetaminophen (Percocet 10-325 Mg) 1 tab PO Q4H PRN PRN Reason: SEVERE PAIN Oxycodone/Acetaminophen (Percocet 5-325 Mg) 1 tab PO Q4H PRN PRN Reason: MODERATE PAIN Last Admin: 04/27/20 03:01 Dose: 1 tab Documented by: Scopolamine (Transderm-Scop) 1 patch TRANSDERMA ONCE PRN PRN Reason: Nausea/ Vomiting Prophylaxis Sevelamer Carbonate (Renvela) 2,400 mg PO TIDWM [facility], [facility] Last Admin: 04/27/20 13:14 Dose: Not Given Documented by: Vitals/I&O/Wt Last Vital Signs Temp 98.2 F 04/27/20 12:00 Pulse 67 04/27/20 15:00 Resp 22 H 04/27/20 15:00 BP 133/72 04/27/20 15:00 Pulse Ox 88 L 04/27/20 12:00 04/27/20 04/27/20 04/27/20 06:59 14:59 22:59 Intake Total 120 / 120 350 / 470 Output Total 550 / 550 Balance -430 / -430 350 / -80 Physical Exam Const: COMMON NORMALS: no acute distress, patient oriented x3 and alert GENERAL APPEARANCE: cooperative, comfortable, well kempt and well hydrated HENMT: COMMON NORMALS: hearing grossly normal bilaterally and external ears normal FACE & SINUS: normal facial exam EXTERNAL EAR: Yes external ears normal Eye: COMMON NORMALS: EOMs intact bilaterally and no scleral icterus GENERAL EYE: appearance normal, both eyes and all related structures Neck/C-Spine: COMMON NORMALS: supple and no JVD GENERAL: Yes normal visual inspection CAROTIDS: Yes normal carotid upstroke Chest: CHEST: Yes Symmetrical chest wall rise and No tenderness Resp: COMMON NORMALS: clear to auscultation bilaterally AUSCULTATION: clear to auscultation bilaterally, no crackles, no rales, no rhonchi and no wheezes Cardio: COMMON NORMALS: no JVD, regular rate, regular rhythm, S1 normal heart sound present, S2 normal heart sound present and Peripheral pulses 2+ throughout PALPATION: normal PMI RATE: regular rate RHYTHM: regular rhythm HEART SOUNDS: S1 normal heart sound present, S2 normal heart sound present, no gallops and no murmurs BRUITS: no carotid bruits PERIPHERAL PULSES: Peripheral pulses 2+ throughout, radial pulses present, posterior tibial pulses present and dorsalis pedis present GI: COMMON NORMALS: Soft to palpation AUSCULTATION: Yes normoactive bowel sounds PALPATION: Yes Soft to palpation, No Tenderness to palpation present (GI), No Guarding due to palpation present (GI) and No Rigid due to palpation Extremity: GENERAL: Yes edema and No pallor Neuro: COMMON NORMALS: patient oriented x3 and CN's II-XII intact bilaterally SENSORIUM/ORIENTATION: Yes alert Psych: COMMON NORMALS: Normal thought process present and speech normal APPEARANCE: Yes well kempt SPEECH: Yes normal speech MOOD & AFFECT: Yes euthymic mood THOUGHT PROCESS: Normal thought process present THOUGHT CONTENT: Yes Normal thought content present Urinary Catheter Management^: Torres: Cath Placed During This Visit: yes, but has since been removed by the nurse Reason for Continuing Indwelling Catheter: Acute Urinary Retention or Obstruction Urinary Catheter Date of Insertion: 04/22/20 Urinary Catheter Time of Insertion: 08:47 Date Urinary Catheter Removed: 04/21/20 Time Urinary Catheter Discontinued: 17:30 Data : 04/26/20 03:27 04/26/20 03:27 Micro: Microbiology 04/26/20 09:08 Anaerobic Culture - Preliminary Arm - #2 04/21/20 11:20 Gram Stain - Final Pleural Fluid Anaerobic Culture - Preliminary Body Fluid Culture - Final 04/26/20 09:08 Gram Stain - Final Arm - #1 Abscess Culture - Preliminary A&P Assessment and plan (1) New onset atrial fibrillation: She remains in sinus rhythm. On amiodarone 200 mg BID and metoprolol. -I think its better to hold off on Eliquis. Status: Acute (2) Acute diastolic heart failure: She is undergoing dialysis for fluid management. Status: Acute (3) Pleural effusion: Patient seems to have recurrent pleural effusion on the right side. Status: Acute (4) Metastatic cancer: Patient is on chemotherapy. Seems to be tolerating fairly well. Management as per the oncology service. 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 Currently has no fever. Status: Acute (6) Acute kidney injury: Dialysis as per the nephrology. 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
--- NOTE | 2020-04-27 19:21 | PC.NURSE ---
spoke with DR. Cottrell about holding eliquis due to drop in hemoglobin intsructions to hold eliquis
[2020-04-27 21:12] LABS: Glucose Point of Care 209 mg/dL (70-110)
[2020-04-28] VITALS (14 sets, daily range): BP systolic 96–137; BP diastolic 50–85; PULSE 58–67; RESP 18–24; TEMP 36.5–36.8; O2SAT 92–99
--- NOTE | 2020-04-28 06:35 | PC.NURSE ---
PT APPEARED TO HAVE RESTED WELL. PT DENIES PAIN AT THIS TIME. PT SEEMS TO BE IN A BETTER MOOD. WILL CONTINUE TO MONITOR.
[2020-04-28] MEDS: sevelamer 800 mg Tablet 2400 MG PO ×3 (08:01→17:41)
[2020-04-28] MEDS: FUROsemide 10 mg/mL SDV 4mL 40 MG IVP (08:01)
[2020-04-28 08:03] LABS: Glucose Point of Care 123 mg/dL (70-110)
[2020-04-28] MEDS: metoprolol tartrate 50 mg Tablet 75 MG PO ×2 (08:27→17:41)
[2020-04-28] MEDS: amiodarone 200 mg Tablet PO ×2 (08:27→17:41)
[2020-04-28 10:30] LABS: Basophils % 0.6 %; Eosinophils % 2.4 %; Hematocrit 23.9 % (37.0-47.0); Hemoglobin 7.6 g/dL (11.5-15.3); Lymphocytes # 0.6 10^3/uL (0.8-4.8); Lymphocytes % 33.7 %; Mean Corpuscular HGB Conc 31.8 g/dL (30.0-36.0); Mean Corpuscular Hemoglobin 30.2 pg (28.0-34.0); Mean Corpuscular Volume 94.8 fL (81-99); Mean Platelet Volume 11.6 fL (7.4-10.4); Monocytes # 0.3 10^3/uL (0.2-0.9); Monocytes % 16.3 %; Neutrophils % 45.8 %; Nucleated Red Blood Cells % 0 %; Platelet Count 147 10^3/cmm (130-400); Red Blood Count 2.52 10^6/uL (4.1-5.3); Red Cell Distribution Width 13.8 % (12.1-15.1); White Blood Count 1.7 10^3/uL (4.0-10.0)
[2020-04-28 10:50] LABS: Anion Gap 14.1 (5-19); Blood Urea Nitrogen 28 mg/dL (8-23); Calcium 8.4 mg/dL (8.5-10.5); Carbon Dioxide 26 mmol/L (22-29); Chloride 93 mmol/L (98-107); Glomerular Filtration Rate 15.2 mL/min (90-130); Glucose 111 mg/dL (65-115); Osmolality Calculated 274 mOsm/kg (285-295); Potassium 4.1 mmol/L (3.5-5.1); Sodium 129 mmol/L (136-145)
[2020-04-28 11:00] LABS: Neutrophils # 0.76 10^3/uL (1.8-7.7)
--- NOTE | 2020-04-28 12:17 | PC.PT ---
pt repeatedly refused therapy despite motivational VCs.
[2020-04-28] MEDS: levofloxacin-dextrose 5 % 500 MG/100 ML PREMIX 100 MG IV (14:35)
--- NOTE | 2020-04-28 16:40 | P.PN_ITS ---
Subjective Subjective: Interval history: Some black tarry stool. Breathing is considerably better today No uremic Sx. UO not being recorded but she reports that it isn't a lot but she is passing some Eliquis on hold Keen to get out of hospital Medications: Reviewed: Yes Medication Review Details: Current Medications Acetaminophen (Tylenol) 650 mg PO Q6H PRN PRN Reason: MILD PAIN Last Admin: 04/22/20 02:44 Dose: 650 mg Documented by: Albuterol Sulfate (Albuterol) 2.5 mg INHALATION ONCE PRN PRN Reason: WHEEZING Albuterol/Ipratropium (Duoneb) 3 ml INHALATION Q6H PRN PRN Reason: SHORTNESS OF BREATH Last Admin: 04/25/20 09:53 Dose: 3 ml Documented by: Amiodarone HCl (Cordarone) 200 mg PO BID [facility] Last Admin: 04/27/20 08:40 Dose: 200 mg Documented by: Apixaban (Eliquis) 2.5 mg PO Q12H [facility] Last Admin: 04/27/20 08:40 Dose: 2.5 mg Documented by: Denture Adhesive (Fixodent) 1 applic DENTAL PRN PRN PRN Reason: denture adhesive Last Admin: 04/14/20 13:27 Dose: 1 applic Documented by: Famotidine (Pepcid Inj) 20 mg IVP ONCE PRN PRN Reason: HEARTBURN Fentanyl (Sublimaze) 50 mcg IVP Q10M PRN PRN Reason: Preop Pain Fentanyl (Sublimaze) 100 mcg IVP ONCE PRN PRN Reason: Per anesthesia for block Furosemide (Lasix) 40 mg IVP Q12H [facility] Last Admin: 04/27/20 08:41 Dose: 40 mg Documented by: Sodium Chloride (Sodium Chloride 0.9%) 500 mls @ 999 mls/hr IV .Q31M PRN PRN Reason: HYPOTENSION Levofloxacin/Dextrose (Levaquin-D5w) 500 mg in 100 mls @ 100 mls/hr IV Q48H [facility]; Protocol Last Admin: 04/26/20 19:57 Dose: 100 mls/hr Documented by: Ipratropium [place] (Atrovent Neb) 0.5 mg INHALATION ONCE PRN PRN Reason: WHEEZING Lidocaine HCl (Lidocaine 2% Viscous) 1 ml TOPICAL PRN PRN PRN Reason: Anesthetic prior to IV start Loperamide HCl (Imodium Capsule) 2 mg PO QID PRN PRN Reason: DIARRHEA Metoclopramide HCl (Reglan) 10 mg IVP ONCE PRN PRN Reason: N/V if zofran ineffective Metoprolol Tartrate (Lopressor) 75 mg PO BID [facility] Last Admin: 04/27/20 08:39 Dose: 75 mg Documented by: Midazolam HCl (Versed) 2 mg IVP Q5M PRN PRN Reason: Preop Anxiety Midazolam HCl (Versed) 5 mg IVP ONCE PRN PRN Reason: Per anesthesia for block Morphine Sulfate (Morphine) 1 mg IVP Q6H PRN PRN Reason: SEVERE PAIN Last Admin: 04/23/20 11:09 Dose: 1 mg Documented by: Morphine Sulfate (Morphine) 0 mg IVP Q5M PRN PRN Reason: Breakthrough Pain PACU PhaseII Nystatin (Nystatin) 500,000 unit PO QID [facility] Last Admin: 04/27/20 14:29 Dose: Not Given Documented by: Ondansetron HCl (Zofran) 4 mg IVP Q6H PRN PRN Reason: NAUSEA AND VOMITING Last Admin: 04/25/20 13:49 Dose: 4 mg Documented by: Ondansetron HCl (Zofran) 4 mg IVP Q5M PRN PRN Reason: NAUSEA AND VOMITING Ondansetron HCl (Zofran) 4 mg IVP Q15M PRN PRN Reason: Nausea/Vomiting PACU PHASE II Oxycodone/Acetaminophen (Percocet 10-325 Mg) 1 tab PO Q4H PRN PRN Reason: SEVERE PAIN Oxycodone/Acetaminophen (Percocet 5-325 Mg) 1 tab PO Q4H PRN PRN Reason: MODERATE PAIN Last Admin: 04/27/20 03:01 Dose: 1 tab Documented by: Scopolamine (Transderm-Scop) 1 patch TRANSDERMA ONCE PRN PRN Reason: Nausea/ Vomiting Prophylaxis Sevelamer Carbonate (Renvela) 2,400 mg PO TIDWM [facility] Last Admin: 04/27/20 13:14 Dose: Not Given Documented by: Vitals/I&O/Wt Last Vital Signs Temp 97.7 F 04/28/20 16:24 Pulse 67 04/28/20 16:24 Resp 18 04/28/20 16:24 BP 110/74 04/28/20 16:24 Pulse Ox 99 04/28/20 16:24 04/28/20 04/28/20 04/28/20 06:59 14:59 22:59 Intake Total 240 / 1310 240 / 240 Balance 240 / 760 240 / 240 Physical Exam Narrative: EXAM NARRATIVE: Constitutional: Awake, conversant, looks tired HEENT: Wet mucosa, no jvp, non icteric Lungs: Bilaterally clear without discernible wheeze or rales in all lung zones CVS: irregular Abdo: Soft, BS ok Ext 4: 1+ edema, peripheral perfusion with no cyanosis Neurological: Grossly non-focal Urinary Catheter Management^: Torres: Cath Placed During This Visit: yes, but has since been removed by the nurse Reason for Continuing Indwelling Catheter: Acute Urinary Retention or Obstruction Urinary Catheter Date of Insertion: 04/22/20 Urinary Catheter Time of Insertion: 08:47 Date Urinary Catheter Removed: 04/21/20 Time Urinary Catheter Discontinued: 17:30 Data : 04/28/20 10:20 04/28/20 10:20 Micro: Microbiology 04/28/20 13:05 Stool Lactoferrin - Final Stool 04/26/20 09:08 Gram Stain - Final Arm - #1 Abscess Culture - Preliminary 04/26/20 09:08 Anaerobic Culture - Preliminary Arm - #2 04/21/20 11:20 Gram Stain - Final Pleural Fluid Anaerobic Culture - Preliminary Body Fluid Culture - Final A&P Additional A&P Information 1. DIONISIO - ATN in the setting of contrast and Vanco tubular toxicity - Will review labs in the am prior to ordering dialysis for her - am renal panel - avoid the usuals 2. Lytes - with minor non critical aberration including mild SIADH - monitor for now 3. New diagnosis of Small Cell lung cancer - s/p Etoposide and Cisplatin dosing per Oncology 4. Post obstructive pneumonia - Zosyn on board - cultures noted; unrevealing - s/p chest tube 5. Hyperphos - on binder therapy 6. Anemia - s/p 2 units today - anticoagulation held - some likely GI loss 7. 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
--- NOTE | 2020-04-28 17:38 | PM.PN ---
Subjective Subjective: Interval history: 64-year-old lady admitted with upper respiratory tract infection symptoms on 04/08/2020 with diarrhea and polydipsia. CT suggestive of right hilar and suprahilar mass with compression of the distal right main pulmonary artery and partial occlusion of right upper lobe and right middle lobe pulmonary arteries and satellite lesions on anterior chest wall, mediastinum and right middle lobe extending along the fissure with subcarinal and bilateral hilar lymphadenopathy and numerous metastatic lesions on left lung and both hepatic lobes. She also had postobstructive pneumonia. On 04/11/2020 she underwent right thoracentesis and ultrasound directed biopsy of metastatic liver lesion which showed small cell cancer and received chemotherapy with carboplatin and etoposide. Over the course of her stay she went to atrial fibrillation and developed renal failure. He was started on amiodarone and has remained in sinus rhythm for last several days. Last 24 hr: She did have some melanotic stool. No events on telemetry. She is tired of being in the hospital. Medications: Reviewed: Yes Medication Review Details: Current Medications Acetaminophen (Tylenol) 650 mg PO Q6H PRN PRN Reason: MILD PAIN Last Admin: 04/22/20 02:44 Dose: 650 mg Documented by: Albuterol Sulfate (Albuterol) 2.5 mg INHALATION ONCE PRN PRN Reason: WHEEZING Albuterol/Ipratropium (Duoneb) 3 ml INHALATION Q6H PRN PRN Reason: SHORTNESS OF BREATH Last Admin: 04/25/20 09:53 Dose: 3 ml Documented by: Amiodarone HCl (Cordarone) 200 mg PO BID [facility] Last Admin: 04/27/20 08:40 Dose: 200 mg Documented by: Apixaban (Eliquis) 2.5 mg PO Q12H [facility] Last Admin: 04/27/20 08:40 Dose: 2.5 mg Documented by: Denture Adhesive (Fixodent) 1 applic DENTAL PRN PRN PRN Reason: denture adhesive Last Admin: 04/14/20 13:27 Dose: 1 applic Documented by: Famotidine (Pepcid Inj) 20 mg IVP ONCE PRN PRN Reason: HEARTBURN Fentanyl (Sublimaze) 50 mcg IVP Q10M PRN PRN Reason: Preop Pain Fentanyl (Sublimaze) 100 mcg IVP ONCE PRN PRN Reason: Per anesthesia for block Furosemide (Lasix) 40 mg IVP Q12H [facility] Last Admin: 04/27/20 08:41 Dose: 40 mg Documented by: Sodium Chloride (Sodium Chloride 0.9%) 500 mls @ 999 mls/hr IV .Q31M PRN PRN Reason: HYPOTENSION Levofloxacin/Dextrose (Levaquin-D5w) 500 mg in 100 mls @ 100 mls/hr IV Q48H [facility]; Protocol Last Admin: 04/26/20 19:57 Dose: 100 mls/hr Documented by: Ipratropium [place] (Atrovent Neb) 0.5 mg INHALATION ONCE PRN PRN Reason: WHEEZING Lidocaine HCl (Lidocaine 2% Viscous) 1 ml TOPICAL PRN PRN PRN Reason: Anesthetic prior to IV start Loperamide HCl (Imodium Capsule) 2 mg PO QID PRN PRN Reason: DIARRHEA Metoclopramide HCl (Reglan) 10 mg IVP ONCE PRN PRN Reason: N/V if zofran ineffective Metoprolol Tartrate (Lopressor) 75 mg PO BID [facility] Last Admin: 04/27/20 08:39 Dose: 75 mg Documented by: Midazolam HCl (Versed) 2 mg IVP Q5M PRN PRN Reason: Preop Anxiety Midazolam HCl (Versed) 5 mg IVP ONCE PRN PRN Reason: Per anesthesia for block Morphine Sulfate (Morphine) 1 mg IVP Q6H PRN PRN Reason: SEVERE PAIN Last Admin: 04/23/20 11:09 Dose: 1 mg Documented by: Morphine Sulfate (Morphine) 0 mg IVP Q5M PRN PRN Reason: Breakthrough Pain PACU PhaseII Nystatin (Nystatin) 500,000 unit PO QID [facility] Last Admin: 04/27/20 14:29 Dose: Not Given Documented by: Ondansetron HCl (Zofran) 4 mg IVP Q6H PRN PRN Reason: NAUSEA AND VOMITING Last Admin: 04/25/20 13:49 Dose: 4 mg Documented by: Ondansetron HCl (Zofran) 4 mg IVP Q5M PRN PRN Reason: NAUSEA AND VOMITING Ondansetron HCl (Zofran) 4 mg IVP Q15M PRN PRN Reason: Nausea/Vomiting PACU PHASE II Oxycodone/Acetaminophen (Percocet 10-325 Mg) 1 tab PO Q4H PRN PRN Reason: SEVERE PAIN Oxycodone/Acetaminophen (Percocet 5-325 Mg) 1 tab PO Q4H PRN PRN Reason: MODERATE PAIN Last Admin: 04/27/20 03:01 Dose: 1 tab Documented by: Scopolamine (Transderm-Scop) 1 patch TRANSDERMA ONCE PRN PRN Reason: Nausea/ Vomiting Prophylaxis Sevelamer Carbonate (Renvela) 2,400 mg PO TIDWM [facility] Last Admin: 04/27/20 13:14 Dose: Not Given Documented by: Vitals/I&O/Wt Last Vital Signs Temp 97.7 F 04/28/20 16:24 Pulse 67 04/28/20 16:24 Resp 18 04/28/20 16:24 BP 110/74 04/28/20 16:24 Pulse Ox 99 04/28/20 16:24 04/28/20 04/28/20 04/28/20 06:59 14:59 22:59 Intake Total 240 / 1310 240 / 240 Balance 240 / 760 240 / 240 Physical Exam Narrative: EXAM NARRATIVE: Const COMMON NORMALS: no acute distress, patient oriented x3 and alert GENERAL APPEARANCE: cooperative, comfortable, well kempt and well hydrated [facility] COMMON NORMALS: hearing grossly normal bilaterally and external ears normal FACE & SINUS: normal facial exam EXTERNAL EAR: Yes external ears normal Eye COMMON NORMALS: EOMs intact bilaterally and no scleral icterus GENERAL EYE: appearance normal, both eyes and all related structures Neck/C-Spine COMMON NORMALS: supple and no JVD GENERAL: Yes normal visual inspection CAROTIDS: Yes normal carotid upstroke Chest CHEST: Yes Symmetrical chest wall rise and No tenderness Resp COMMON NORMALS: clear to auscultation bilaterally AUSCULTATION: clear to auscultation bilaterally, no crackles, no rales, no rhonchi and no wheezes Cardio COMMON NORMALS: no JVD, regular rate, regular rhythm, S1 normal heart sound present, S2 normal heart sound present and Peripheral pulses 2+ throughout PALPATION: normal PMI RATE: regular rate RHYTHM: regular rhythm HEART SOUNDS: S1 normal heart sound present, S2 normal heart sound present, no gallops and no murmurs BRUITS: no carotid bruits PERIPHERAL PULSES: Peripheral pulses 2+ throughout, radial pulses present, posterior tibial pulses present and dorsalis pedis present GI COMMON NORMALS: Soft to palpation AUSCULTATION: Yes normoactive bowel sounds PALPATION: Yes Soft to palpation, No Tenderness to palpation present (GI), No Guarding due to palpation present (GI) and No Rigid due to palpation Extremity GENERAL: Yes edema and No pallor Neuro COMMON NORMALS: patient oriented x3 and CN's II-XII intact bilaterally SENSORIUM/ORIENTATION: Yes alert Psych COMMON NORMALS: Normal thought process present and speech normal APPEARANCE: Yes well kempt SPEECH: Yes normal speech MOOD & AFFECT: Yes euthymic mood THOUGHT PROCESS: Normal thought process present THOUGHT CONTENT: Yes Normal thought content present Urinary Catheter Management^: Torres: Cath Placed During This Visit: yes, but has since been removed by the nurse Reason for Continuing Indwelling Catheter: Acute Urinary Retention or Obstruction Urinary Catheter Date of Insertion: 04/22/20 Urinary Catheter Time of Insertion: 08:47 Date Urinary Catheter Removed: 04/21/20 Time Urinary Catheter Discontinued: 17:30 Data : 04/28/20 10:20 04/28/20 10:20 Micro: Microbiology 04/21/20 11:20 Gram Stain - Final Pleural Fluid Anaerobic Culture - Final Body Fluid Culture - Final 04/26/20 09:08 Anaerobic Culture - Preliminary Arm - #2 04/28/20 13:05 Stool Lactoferrin - Final Stool 04/26/20 09:08 Gram Stain - Final Arm - #1 Abscess Culture - Preliminary A&P Assessment and plan (1) New onset atrial fibrillation: She remains in sinus rhythm. On amiodarone 200 mg BID and metoprolol. -change to amiodarone 200 mg daily on 04/30/20. - Eliquis held. Status: Acute (2) Acute diastolic heart failure: She is undergoing dialysis for fluid management. Status: Acute (3) Pleural effusion: Patient seems to have recurrent pleural effusion on the right side. Status: Acute (4) Metastatic cancer: Newly diagnosed small cell lung cancer status post etoposide and cisplatin chemotherapy. Management as per the oncology service. 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 Currently has no fever. Status: Acute (6) Acute kidney injury: Dialysis as per the nephrology. Status: Acute Additional A&P Information GI bleed anemia s/p pRBC transfusion Hypoalbuminemia Generalized weakness Attestations Medical Necessity Statement*: As per primary team Coding Level of Care Code Acute Powder Monkey for Chg Fwd Diagnoses New onset atrial fibrillation I48.91 Acute diastolic heart failure I50.31 Pleural effusion J90 Metastatic cancer C77.1 Area of secondary neoplastic involvement: lymph node Lymph node location: intrathoracic region Obstructive pneumonia J18.9 Acute kidney injury N17.9
[2020-04-28] MEDS: nystatin 100,000 unit/mL UDC 5 mL 500000 UNIT PO ×2 (17:41→21:30)
--- NOTE | 2020-04-28 21:08 | PM.PN ---
Subjective Medications: Reviewed: Yes Medication Review Details: Current Medications Acetaminophen (Tylenol) 650 mg PO Q6H PRN PRN Reason: MILD PAIN Last Admin: 04/22/20 02:44 Dose: 650 mg Documented by: Albuterol Sulfate (Albuterol) 2.5 mg INHALATION ONCE PRN PRN Reason: WHEEZING Albuterol/Ipratropium (Duoneb) 3 ml INHALATION Q6H PRN PRN Reason: SHORTNESS OF BREATH Last Admin: 04/25/20 09:53 Dose: 3 ml Documented by: Amiodarone HCl (Cordarone) 200 mg PO BID [facility] Last Admin: 04/27/20 08:40 Dose: 200 mg Documented by: Apixaban (Eliquis) 2.5 mg PO Q12H [facility] Last Admin: 04/27/20 08:40 Dose: 2.5 mg Documented by: Denture Adhesive (Fixodent) 1 applic DENTAL PRN PRN PRN Reason: denture adhesive Last Admin: 04/14/20 13:27 Dose: 1 applic Documented by: Famotidine (Pepcid Inj) 20 mg IVP ONCE PRN PRN Reason: HEARTBURN Fentanyl (Sublimaze) 50 mcg IVP Q10M PRN PRN Reason: Preop Pain Fentanyl (Sublimaze) 100 mcg IVP ONCE PRN PRN Reason: Per anesthesia for block Furosemide (Lasix) 40 mg IVP Q12H [facility] Last Admin: 04/27/20 08:41 Dose: 40 mg Documented by: Sodium Chloride (Sodium Chloride 0.9%) 500 mls @ 999 mls/hr IV .Q31M PRN PRN Reason: HYPOTENSION Levofloxacin/Dextrose (Levaquin-D5w) 500 mg in 100 mls @ 100 mls/hr IV Q48H [facility]; Protocol Last Admin: 04/26/20 19:57 Dose: 100 mls/hr Documented by: Ipratropium [place] (Atrovent Neb) 0.5 mg INHALATION ONCE PRN PRN Reason: WHEEZING Lidocaine HCl (Lidocaine 2% Viscous) 1 ml TOPICAL PRN PRN PRN Reason: Anesthetic prior to IV start Loperamide HCl (Imodium Capsule) 2 mg PO QID PRN PRN Reason: DIARRHEA Metoclopramide HCl (Reglan) 10 mg IVP ONCE PRN PRN Reason: N/V if zofran ineffective Metoprolol Tartrate (Lopressor) 75 mg PO BID [facility] Last Admin: 04/27/20 08:39 Dose: 75 mg Documented by: Midazolam HCl (Versed) 2 mg IVP Q5M PRN PRN Reason: Preop Anxiety Midazolam HCl (Versed) 5 mg IVP ONCE PRN PRN Reason: Per anesthesia for block Morphine Sulfate (Morphine) 1 mg IVP Q6H PRN PRN Reason: SEVERE PAIN Last Admin: 04/23/20 11:09 Dose: 1 mg Documented by: Morphine Sulfate (Morphine) 0 mg IVP Q5M PRN PRN Reason: Breakthrough Pain PACU PhaseII Nystatin (Nystatin) 500,000 unit PO QID [facility] Last Admin: 04/27/20 14:29 Dose: Not Given Documented by: Ondansetron HCl (Zofran) 4 mg IVP Q6H PRN PRN Reason: NAUSEA AND VOMITING Last Admin: 04/25/20 13:49 Dose: 4 mg Documented by: Ondansetron HCl (Zofran) 4 mg IVP Q5M PRN PRN Reason: NAUSEA AND VOMITING Ondansetron HCl (Zofran) 4 mg IVP Q15M PRN PRN Reason: Nausea/Vomiting PACU PHASE II Oxycodone/Acetaminophen (Percocet 10-325 Mg) 1 tab PO Q4H PRN PRN Reason: SEVERE PAIN Oxycodone/Acetaminophen (Percocet 5-325 Mg) 1 tab PO Q4H PRN PRN Reason: MODERATE PAIN Last Admin: 04/27/20 03:01 Dose: 1 tab Documented by: Scopolamine (Transderm-Scop) 1 patch TRANSDERMA ONCE PRN PRN Reason: Nausea/ Vomiting Prophylaxis Sevelamer Carbonate (Renvela) 2,400 mg PO TIDWM [facility] Last Admin: 04/27/20 13:14 Dose: Not Given Documented by: Vitals/I&O/Wt Last Vital Signs Temp 98.0 F 04/28/20 19:31 Pulse 58 L 04/28/20 19:31 Resp 24 H 04/28/20 19:31 BP 99/61 04/28/20 19:31 Pulse Ox 92 04/28/20 19:31 04/28/20 04/28/20 04/28/20 06:59 14:59 22:59 Intake Total 240 / 1310 240 / 240 240 / 480 Balance 240 / 760 240 / 240 240 / 480 Physical Exam Narrative: EXAM NARRATIVE: Constitutional: Awake, conversant, looks tired HEENT: Wet mucosa, no jvp, non icteric Lungs: Bilaterally clear without discernible wheeze or rales in all lung zones CVS: irregular Abdo: Soft, BS ok Ext 4: 1+ edema, peripheral perfusion with no cyanosis Neurological: Grossly non-focal Const: COMMON NORMALS: patient oriented x3 HENMT: COMMON NORMALS: normocephalic, atraumatic, hearing grossly normal bilaterally and external ears normal HEAD & SCALP: normocephalic and atraumatic EXTERNAL EAR: Yes external ears normal Eye: COMMON NORMALS: no scleral icterus GENERAL EYE: appearance normal, both eyes and all related structures Chest: COMMONS NORMALS: normal inspection of the chest and normal palpation of entire chest wall CHEST: Yes Symmetrical chest wall rise Resp: COMMON NORMALS: normal respiratory effort, No retractions and No use of accessory muscles EFFORT & INSPECTION: Yes symmetric chest movement OTHER: b/l basal crackles present. Rt side tunnel catheter site is clean.No hematoma Cardio: COMMON NORMALS: regular rate, regular rhythm, S1 normal heart sound present, S2 normal heart sound present, No gallops present (Cardio), No murmurs present (Cardio), No rub (Cardio) and Peripheral pulses 2+ throughout RATE: regular rate RHYTHM: regular rhythm HEART SOUNDS: S1 normal heart sound present and S2 normal heart sound present PERIPHERAL PULSES: Peripheral pulses 2+ throughout GI: COMMON NORMALS: Normal to inspection, nondistended, normoactive bowel sounds present, Soft to palpation, non-tender, No hepatosplenomegaly present and no masses AUSCULTATION: Yes normoactive bowel sounds PALPATION: Yes Soft to palpation and Yes No hepatosplenomegaly present RECTAL EXAM: deferred Extremity: NARRATIVE EXTREMITY EXAM: 2 + pitting edema present in both L/E Neuro: COMMON NORMALS: patient oriented x3 Urinary Catheter Management^: Torres: Cath Placed During This Visit: yes, but has since been removed by the nurse Reason for Continuing Indwelling Catheter: Acute Urinary Retention or Obstruction Urinary Catheter Date of Insertion: 04/22/20 Urinary Catheter Time of Insertion: 08:47 Date Urinary Catheter Removed: 04/21/20 Time Urinary Catheter Discontinued: 17:30 Data : 04/28/20 10:20 04/28/20 10:20 Micro: Microbiology 04/21/20 11:20 Gram Stain - Final Pleural Fluid Anaerobic Culture - Final Body Fluid Culture - Final 04/26/20 09:08 Anaerobic Culture - Preliminary Arm - #2 04/28/20 13:05 Stool Lactoferrin - Final Stool 04/26/20 09:08 Gram Stain - Final Arm - #1 Abscess Culture - Preliminary A&P Assessment and plan (1) Neutropenia: Status: Acute (2) Sepsis with acute hypoxic respiratory failure: Status: Acute Qualifiers: Sepsis type: sepsis due to unspecified organism Severe sepsis shock status: without septic shock Qualified Code(s): A41.9 - Sepsis, unspecified organism; R65.20 - Severe sepsis without septic shock; J96.01 - Acute respiratory failure with hypoxia (3) Recurrent right pleural effusion: Status: Acute (4) Metastatic lung cancer (metastasis from lung to other site): Status: Acute Qualifiers: Laterality: right Qualified Code(s): C34.91 - Malignant neoplasm of unspecified part of right bronchus or lung (5) ATN (acute tubular necrosis): Status: Acute (6) Pneumonia: Status: Acute Qualifiers: Pneumonia type: due to unspecified organism Laterality: right Lung location: unspecified part of lung Qualified Code(s): J18.9 - Pneumonia, unspecified organism (7) Hyponatremia: Status: Acute (8) New onset of congestive heart failure: Status: Acute (9) Abnormal transaminases: Status: Acute (10) Leukocytosis: Status: Resolved Qualifiers: Leukocytosis type: unspecified Qualified Code(s): D72.829 - Elevated white blood cell count, unspecified Additional A&P Information #Leukopenia with Neutropenia: Likely due to chemotherapy.Monitor for Febrile Neutropenia.No indication for filgrastim for now. #Malignant right pleural effusion: Status post right-sided thoracentesis. Good resolution of pleural effusion. Chest tube has been removed. Given nature of pleural effusion, she will potentially require Pleurx catheter in future, if reaccumulation takes place. #Rt Pneumothorax: S/P thoracentesis and chest tube placement. Serial xary have shown resolution of rt PTX.Continue to monitor with xray chest. ##DIONISIO most likely secondary to ATN.: Currently on hemodialysis. Patient was oliguric but has started making urine on lasix but currently will need extended dialysis for now. Appreciate pulmonary and renal recommendations #Anemia likely anemia of inflammatory disease: Currently's hemoglobin is 7.6 today.S/P transfusion of 2 units PRBC.Monitor CBC #Diarrhea: Likely medication side effects.C diff ruled out.On imimodium #Hypoxic respiratory failure: Multifactorial,(pneumonia, heart failure, bilateral pleural effusion, post obstructive pneumonia from bronchial obstruction). Currently improving, supplemental oxygen requirement is going down currently she is on 4 L oxygen via nasal cannula, sepsis secondary to pneumonia is improving, heart failure is compensated. s/p rt sided thoracentesis. # Metastatic small cell lung cancer Pathology confirmed small cell lung cancer neuroendocrine differentiation Currently on chemotherapy with carboplatin and etoposide, completed day 3 cycle 1 #Rt forearm abscess: Currently on levofloxacin,S/P I&d by surgery #Sepsis, likel 2/2 to PNA Present on admission, has now resolved.She has been on broad spectrm abx for extnded period of time (Namely Vancomycin, meropenam, doxycycline ) Currently on Zosyn. We will de-escalate the antibiotic, we will switch her to levofloxacin 750 every 48 hour. Cultures have been negative so far. Mycobacterial Smear - Preliminary:No acid fast bacilli seen: Fungal Smear : No fungal elements seen. No fungi isolated to date. Blood cultures negative till date. MRSA culture nares negative. C. difficile PCR negative. Legionella negative, bacterial antigen panel negative. Currently not on pressors. #Hyponatremia. consistent with SIADH. Possibly it is secondary to lung disease and malignancy. Appreciate nephrology recommendations # New onset atrial fibrillation with RVR. Heart rate is well controlled now with amiodarone and metoprolol T 75 mg q12 h daily. Hold eliquis.2.5 mg q12 h daily because of uri # Presumed PE, unable to get a V/Q scan due to inability to lie flat.findings appear c/w compression from external lung mass rather than PE, heparin drip was discontinued. DVT prophylaxis: eliquis Full code Attestations Medical Necessity Statement*: Patient needs to be in hospital for acute renal failure management Coding Level of Care Code Acute Recruitment And Outreach Assistant for [facility] Diagnoses Neutropenia D70.9 Sepsis with acute hypoxic respiratory failure A41.9; R65.20; J96.01 Sepsis type: sepsis due to unspecified organism Severe sepsis shock status: without septic shock Recurrent right pleural effusion J90 Metastatic lung cancer (metastasis from lung to other site) C34.91 Laterality: right ATN (acute tubular necrosis) N17.0 Pneumonia J18.9 Pneumonia type: due to unspecified organism Laterality: right Lung location: unspecified part of lung Hyponatremia E87.1 New onset of congestive heart failure I50.9 Abnormal transaminases R74.8 Leukocytosis D72.829 Leukocytosis type: unspecified
[2020-04-28] MEDS: oxyCODONE-APAP 5-325 mg Tablet 1 TAB PO (21:29)
[2020-04-29] VITALS (9 sets, daily range): BP systolic 114–121; BP diastolic 63–77; PULSE 59–72; RESP 16–20; TEMP 36.6–37.4; O2SAT 90–98
[2020-04-29] MEDS: FUROsemide 10 mg/mL SDV 4mL 40 MG IVP ×2 (02:21→15:37)
[2020-04-29] MEDS: oxyCODONE-APAP 5-325 mg Tablet 1 TAB PO (03:51)
[2020-04-29] MEDS: loperamide 2 mg Capsule PO ×2 (03:51→11:14)
[2020-04-29 05:46] LABS: Basophils % 0.6 %; Eosinophils % 2.3 %; Hematocrit 27.2 % (37.0-47.0); Hemoglobin 8.8 g/dL (11.5-15.3); Lymphocytes # 0.6 10^3/uL (0.8-4.8); Lymphocytes % 34.3 %; Mean Corpuscular HGB Conc 32.4 g/dL (30.0-36.0); Mean Corpuscular Hemoglobin 30.3 pg (28.0-34.0); Mean Corpuscular Volume 93.8 fL (81-99); Mean Platelet Volume 11.1 fL (7.4-10.4); Monocytes # 0.3 10^3/uL (0.2-0.9); Monocytes % 17.4 %; Neutrophils % 43.1 %; Nucleated Red Blood Cells % 0 %; Platelet Count 168 10^3/cmm (130-400); Red Cell Distribution Width 13.2 % (12.1-15.1); White Blood Count 1.7 10^3/uL (4.0-10.0)
[2020-04-29 06:27] LABS: Blood Urea Nitrogen 30 mg/dL (8-23); Calcium 8.4 mg/dL (8.5-10.5); Carbon Dioxide 24 mmol/L (22-29); Chloride 95 mmol/L (98-107); Glomerular Filtration Rate 13.7 mL/min (90-130); Glucose 107 mg/dL (65-115); Osmolality Calculated 279 mOsm/kg (285-295); Sodium 131 mmol/L (136-145)
[2020-04-29 06:36] LABS: Anion Gap 16.2 (5-19); Potassium 4.2 mmol/L (3.5-5.1)
[2020-04-29 07:23] LABS: Neutrophils # 0.74 10^3/uL (1.8-7.7)
[2020-04-29] MEDS: metoprolol tartrate 50 mg Tablet 75 MG PO ×2 (08:33→18:28)
[2020-04-29] MEDS: sevelamer 800 mg Tablet 2400 MG PO ×2 (08:33→15:23)
[2020-04-29] MEDS: amiodarone 200 mg Tablet PO (08:33)
--- NOTE | 2020-04-29 09:38 | P.PN_ITS ---
Subjective Subjective: Interval history: Feels good, breathing comfortably, mild LE edema. Minimal pain No uremic Sx. Passing urine and flushing away before being recorded Medications: Reviewed: Yes Medication Review Details: Current Medications Acetaminophen (Tylenol) 650 mg PO Q6H PRN PRN Reason: MILD PAIN Last Admin: 04/22/20 02:44 Dose: 650 mg Documented by: Albuterol Sulfate (Albuterol) 2.5 mg INHALATION ONCE PRN PRN Reason: WHEEZING Albuterol/Ipratropium (Duoneb) 3 ml INHALATION Q6H PRN PRN Reason: SHORTNESS OF BREATH Last Admin: 04/25/20 09:53 Dose: 3 ml Documented by: Amiodarone HCl (Cordarone) 200 mg PO BID [facility] Last Admin: 04/27/20 08:40 Dose: 200 mg Documented by: Apixaban (Eliquis) 2.5 mg PO Q12H [facility] Last Admin: 04/27/20 08:40 Dose: 2.5 mg Documented by: Denture Adhesive (Fixodent) 1 applic DENTAL PRN PRN PRN Reason: denture adhesive Last Admin: 04/14/20 13:27 Dose: 1 applic Documented by: Famotidine (Pepcid Inj) 20 mg IVP ONCE PRN PRN Reason: HEARTBURN Fentanyl (Sublimaze) 50 mcg IVP Q10M PRN PRN Reason: Preop Pain Fentanyl (Sublimaze) 100 mcg IVP ONCE PRN PRN Reason: Per anesthesia for block Furosemide (Lasix) 40 mg IVP Q12H [facility] Last Admin: 04/27/20 08:41 Dose: 40 mg Documented by: Sodium Chloride (Sodium Chloride 0.9%) 500 mls @ 999 mls/hr IV .Q31M PRN PRN Reason: HYPOTENSION Levofloxacin/Dextrose (Levaquin-D5w) 500 mg in 100 mls @ 100 mls/hr IV Q48H [facility]; Protocol Last Admin: 04/26/20 19:57 Dose: 100 mls/hr Documented by: Ipratropium [place] (Atrovent Neb) 0.5 mg INHALATION ONCE PRN PRN Reason: WHEEZING Lidocaine HCl (Lidocaine 2% Viscous) 1 ml TOPICAL PRN PRN PRN Reason: Anesthetic prior to IV start Loperamide HCl (Imodium Capsule) 2 mg PO QID PRN PRN Reason: DIARRHEA Metoclopramide HCl (Reglan) 10 mg IVP ONCE PRN PRN Reason: N/V if zofran ineffective Metoprolol Tartrate (Lopressor) 75 mg PO BID [facility] Last Admin: 04/27/20 08:39 Dose: 75 mg Documented by: Midazolam HCl (Versed) 2 mg IVP Q5M PRN PRN Reason: Preop Anxiety Midazolam HCl (Versed) 5 mg IVP ONCE PRN PRN Reason: Per anesthesia for block Morphine Sulfate (Morphine) 1 mg IVP Q6H PRN PRN Reason: SEVERE PAIN Last Admin: 04/23/20 11:09 Dose: 1 mg Documented by: Morphine Sulfate (Morphine) 0 mg IVP Q5M PRN PRN Reason: Breakthrough Pain PACU PhaseII Nystatin (Nystatin) 500,000 unit PO QID [facility] Last Admin: 04/27/20 14:29 Dose: Not Given Documented by: Ondansetron HCl (Zofran) 4 mg IVP Q6H PRN PRN Reason: NAUSEA AND VOMITING Last Admin: 04/25/20 13:49 Dose: 4 mg Documented by: Ondansetron HCl (Zofran) 4 mg IVP Q5M PRN PRN Reason: NAUSEA AND VOMITING Ondansetron HCl (Zofran) 4 mg IVP Q15M PRN PRN Reason: Nausea/Vomiting PACU PHASE II Oxycodone/Acetaminophen (Percocet 10-325 Mg) 1 tab PO Q4H PRN PRN Reason: SEVERE PAIN Oxycodone/Acetaminophen (Percocet 5-325 Mg) 1 tab PO Q4H PRN PRN Reason: MODERATE PAIN Last Admin: 04/27/20 03:01 Dose: 1 tab Documented by: Scopolamine (Transderm-Scop) 1 patch TRANSDERMA ONCE PRN PRN Reason: Nausea/ Vomiting Prophylaxis Sevelamer Carbonate (Renvela) 2,400 mg PO TIDWM ON [facility] Last Admin: 04/27/20 13:14 Dose: Not Given Documented by: Vitals/I&O/Wt Last Vital Signs Temp 98.3 F 04/29/20 07:53 Pulse 67 04/29/20 07:53 Resp 18 04/29/20 07:53 BP 121/63 04/29/20 07:53 Pulse Ox 97 04/29/20 07:53 04/28/20 04/29/20 04/29/20 22:59 06:59 14:59 Intake Total 240 / 480 350 / 830 Output Total 200 / 200 0 / 200 Balance 40 / 280 350 / 630 Physical Exam Narrative: EXAM NARRATIVE: Constitutional: Awake, conversant, looks tired HEENT: Wet mucosa, no jvp, non icteric Lungs: Bilaterally clear without discernible wheeze or rales in all lung zones CVS: irregular Abdo: Soft, BS ok Ext 4: 1+ edema, peripheral perfusion with no cyanosis Neurological: Grossly non-focal Urinary Catheter Management^: Torres: Cath Placed During This Visit: yes, but has since been removed by the nurse Reason for Continuing Indwelling Catheter: Acute Urinary Retention or Obstruction Urinary Catheter Date of Insertion: 04/22/20 Urinary Catheter Time of Insertion: 08:47 Date Urinary Catheter Removed: 04/21/20 Time Urinary Catheter Discontinued: 17:30 Data : 04/29/20 05:15 04/29/20 05:15 Micro: Microbiology 04/21/20 11:20 Gram Stain - Final Pleural Fluid Anaerobic Culture - Final Body Fluid Culture - Final 04/26/20 09:08 Anaerobic Culture - Preliminary Arm - #2 04/28/20 13:05 Stool Lactoferrin - Final Stool 04/26/20 09:08 Gram Stain - Final Arm - #1 Abscess Culture - Preliminary A&P Additional A&P Information 1. DIONISIO - ATN in the setting of contrast and Vanco tubular toxicity - creatinine drifting up but only marginally 3.1 to 3.4. No acute need for dialysis and I wish to monitor her for the time being to see if she is r ecovering - am renal panel - avoid the usuals 2. Lytes - with minor non critical aberration including mild SIADH - monitor for now 3. New diagnosis of Small Cell lung cancer - s/p Etoposide and Cisplatin dosing per Oncology 4. Post obstructive pneumonia - Levaquin - cultures noted; unrevealing - s/p chest tube 5. Hyperphos - on binder therapy 6. Anemia - s/p 2 units yesterday - anticoagulation held - some likely GI loss 7. D/w CM, regarding outpatient dialysis set up; issues with payer source Andrew Travis MD [phone] Interview and exam performed with the aid of bedside RN using telemed Attestations Medical Necessity Statement*: eval for Dionisio on dialysis Coding Level of Care Code Acute De Alcoholizer for [facility]
[2020-04-29] MEDS: nystatin 100,000 unit/mL UDC 5 mL 500000 UNIT PO ×2 (11:14→15:23)
[2020-04-29] MEDS: benzonatate 100 mg Capsule PO ×2 (15:23→22:38)
--- NOTE | 2020-04-29 16:02 | PM.PN ---
Subjective Subjective: Interval history: Patient denies any significant left forearm pain, wound dressing was changed yesterday. Denies any fevers or chills. Patient has longstanding history of diarrhea and has been on Imodium, she was noted to be anemic and FOBT was positive. No prior colonoscopy, no history peptic ulcer disease in the past Vitals/I&O/Wt Last Vital Signs Temp 98.0 F 04/29/20 11:46 Pulse 59 L 04/29/20 11:46 Resp 18 04/29/20 11:46 BP 115/66 04/29/20 11:46 Pulse Ox 98 04/29/20 11:46 04/29/20 04/29/20 04/29/20 06:59 14:59 22:59 Intake Total 350 / 830 120 / 120 Output Total 0 / 200 Balance 350 / 630 120 / 120 Physical Exam Narrative: EXAM NARRATIVE: Abdomen: Soft Left forearm: Incision healing well, minimal cellulitis. no hematoma Urinary Catheter Management^: Torres: Cath Placed During This Visit: yes, but has since been removed by the nurse Reason for Continuing Indwelling Catheter: Acute Urinary Retention or Obstruction Urinary Catheter Date of Insertion: 04/22/20 Urinary Catheter Time of Insertion: 08:47 Date Urinary Catheter Removed: 04/21/20 Time Urinary Catheter Discontinued: 17:30 Data : 04/29/20 05:15 04/29/20 05:15 Micro: Microbiology 04/26/20 09:08 Anaerobic Culture - Preliminary Arm - #2 04/28/20 13:05 Stool Lactoferrin - Final Stool Parasite Antigen Panel - Final 04/26/20 09:08 Gram Stain - Final Arm - #1 Abscess Culture - Final 04/21/20 11:20 Gram Stain - Final Pleural Fluid Anaerobic Culture - Final Body Fluid Culture - Final A&P Assessment and plan (1) Anemia: 64-year-old female with pancytopenia with anemia likely secondary to chemotherapy but since her FOBT was positive and she has never had a colonoscopy before we will schedule her for EGD/colonoscopy under [facility] tomorrow Status: Acute (2) Hx of drainage of abscess: No further packing required Cover with antibiotic cream and Band-Aid Status: Acute Attestations Medical Necessity Statement*: Anemia requiring EGD and colonoscopy tomorrow 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
[2020-04-29] MEDS: magnesium citrate Btl 296 mL PO ×2 (16:39→23:19)
--- NOTE | 2020-04-29 17:13 | P.PN_ITS ---
Subjective Subjective: Interval history: Prolonged hospital course appreciated. Vitals and labs noted. On examination patient sitting comfortably at the bedside requiring 1% nasal cannula to saturate at 98%. She states she is feeling better. Denies any nausea, vomiting, headache. Denies any difficulty in breathing. Vitals/I&O/Wt Last Vital Signs Temp 98.0 F 04/29/20 11:46 Pulse 59 L 04/29/20 11:46 Resp 18 04/29/20 11:46 BP 115/66 04/29/20 11:46 Pulse Ox 98 04/29/20 11:46 04/29/20 04/29/20 04/29/20 06:59 14:59 22:59 Intake Total 350 / 830 120 / 120 Output Total 0 / 200 Balance 350 / 630 120 / 120 Physical Exam Narrative: EXAM NARRATIVE: General: No acute distress, AO x3 HEENT: PERRLA, pupils bilaterally equal and reactive Chest:Bilateral occasional rhonchi present, decreased air entry right lower zone, equal good air entry bilaterally CVS: S1-S2 regular, no murmurs, no tachycardia, no gallops, no rubs Abdomen: Soft, nontender, no organomegaly, bowel sounds present Neuro: No focal deficits, no facial deformity, AO x3, power 5/5 in all limbs Urinary Catheter Management^: Torres: Cath Placed During This Visit: yes, but has since been removed by the nurse Reason for Continuing Indwelling Catheter: Acute Urinary Retention or Obstruction Urinary Catheter Date of Insertion: 04/22/20 Urinary Catheter Time of Insertion: 08:47 Date Urinary Catheter Removed: 04/21/20 Time Urinary Catheter Discontinued: 17:30 Data : 04/29/20 05:15 04/29/20 05:15 Micro: Microbiology 04/26/20 09:08 Anaerobic Culture - Preliminary Arm - #2 04/28/20 13:05 Stool Lactoferrin - Final Stool Parasite Antigen Panel - Final 04/26/20 09:08 Gram Stain - Final Arm - #1 Abscess Culture - Final 04/21/20 11:20 Gram Stain - Final Pleural Fluid Anaerobic Culture - Final Body Fluid Culture - Final A&P Assessment and plan (1) Neutropenia: Status: Acute (2) Sepsis with acute hypoxic respiratory failure: Status: Acute Qualifiers: Sepsis type: sepsis due to unspecified organism Severe sepsis shock status: without septic shock Qualified Code(s): A41.9 - Sepsis, unspecified organism; R65.20 - Severe sepsis without septic shock; J96.01 - Acute respiratory failure with hypoxia (3) Recurrent right pleural effusion: Status: Acute (4) Metastatic lung cancer (metastasis from lung to other site): Status: Acute Qualifiers: Laterality: right Qualified Code(s): C34.91 - Malignant neoplasm of unspecified part of right bronchus or lung (5) ATN (acute tubular necrosis): Status: Acute (6) Pneumonia: Status: Acute Qualifiers: Pneumonia type: due to unspecified organism Laterality: right Lung location: unspecified part of lung Qualified Code(s): J18.9 - Pneumonia, unspecified organism (7) Hyponatremia: Status: Acute (8) New onset of congestive heart failure: Status: Acute (9) Abnormal transaminases: Status: Acute (10) Leukocytosis: Status: Resolved Qualifiers: Leukocytosis type: unspecified Qualified Code(s): D72.829 - Elevated white blood cell count, unspecified Additional A&P Information Leukopenia with Neutropenia: Patient is 1 week out of chemotherapy. Patient received carboplatin and etoposide. It is typical for patient well-appearing leukopenia and neutropenia 1 week after chemotherapy. Case discussed with Dr. Lees. Has advised filgrastim 40 subcu daily for 1 week. We will monitor for neutropenic fever. Reverse isolation. Anemia: Most likely multifactorial. Most likely from pancytopenia from recent chemotherapy. Patient stool for occult blood positive. Hemoglobin 8.8 today after 2 units of transfusion yesterday. Coming down from 13.5 on the day of admission. Patient is on Eliquis at home because of A. fib. Moreover patient was found to have an acute DVT of the right jugular and cephalic veins. Unfortunately we will have to withhold Eliquis going forward given drop in hemoglobin. We will consult Dr. Caal for EGD/colonoscopy because depending on the results will plan for further anticoagulation as an outpatient. Hypoxic respiratory failure:Multifactorial,(pneumonia, heart failure, bilateral pleural effusion, post obstructive pneumonia from bronchial obstruction). Postobstructive pneumonia: Patient is on levofloxacin at present. Day 4/10. MRSA negative. 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 Good resolution of pleural effusion. Chest tube has been removed. Given nature of pleural effusion, she will potentially require Pleurx catheter in future, if reaccumulation takes place. Rt Pneumothorax: S/P thoracentesis and chest tube placement. Serial xary have shown resolution of rt PTX.Continue to monitor with xray chest. We will repeat chest x-ray tomorrow morning to monitor both for right pleural effusion or pneumothorax. Oxygen supplementation keeping saturation over 92%. Will need home oxygen evaluation prior to discharge. #DIONISIO most likely secondary to ATN.: Secondary to contrast nephropathy, vancomycin associated ATN. Currently on hemodialysis. Post tunnel cath done in April. Awaiting chair for dialysis as an outpatient. Appreciate pulmonary and renal recommendations #Diarrhea: Likely medication side effects.C diff ruled out.On imimodium #Rt forearm abscess: Currently on levofloxacin,S/P I&d by surgery #Sepsis, likel 2/2 to PNA Present on admission, has now resolved.She has been on broad spectrm abx for extnded period of time (Namely Vancomycin, meropenam, doxycycline ) Cultures have been negative so far. Mycobacterial Smear - Preliminary:No acid fast bacilli seen: Fungal Smear : No fungal elements seen. No fungi isolated to date. Blood cultures negative till date. MRSA culture nares negative. C. difficile PCR negative. Legionella negative, bacterial antigen panel negative. Currently not on pressors. #Hyponatremia. consistent with SIADH. Possibly it is secondary to lung disease and malignancy. Appreciate nephrology recommendations And fluid restrictions. New onset atrial fibrillation with RVR. Currently on amiodarone 200 mg twice daily along with metoprolol 75 mg twice d aily. Patient is bradycardic. We will switch over to 200 mg of amiodarone daily from twice daily. Hold eliquis.2.5 mg q12 h daily because of uri Right jugular and cephalic DVT: Holding Eliquis right now because of GI bleed. SCDs, holding Eliquis because of GI bleed. Full code Attestations Medical Necessity Statement*: Requires further hospitalization because of GI bleed, leukopenia along with neutropenia, hypoxic respiratory failure because of postobstructive pneumonia and metastatic small lung cell cancer. Post thoracentesis for malignant pleural effusion., DIONISIO because of ATN requiring di alysis Time Spent in Patient Care: Greater than 35 minutes (>than 50% of time spent in counselling and/or direct pt care on unit) . 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 Neutropenia D70.9 Sepsis with acute hypoxic respiratory failure A41.9; R65.20; J96.01 Sepsis type: sepsis due to unspecified organism Severe sepsis shock status: without septic shock Recurrent right pleural effusion J90 Metastatic lung cancer (metastasis from lung to other site) C34.91 Laterality: right ATN (acute tubular necrosis) N17.0 Pneumonia J18.9 Pneumonia type: due to unspecified organism Laterality: right Lung location: unspecified part of lung Hyponatremia E87.1 New onset of congestive heart failure I50.9 Abnormal transaminases R74.8 Leukocytosis D72.829 Leukocytosis type: unspecified
--- NOTE | 2020-04-29 17:40 | P.PN_ITS ---
Subjective Subjective: Interval history: Patient is feeling better. The shortness of breath is improving. No fever or chills. No cough. Currently she is in reverse isolation. Continues to stay in the sinus rhythm on telemetry. No new arrhythmias were noted. Medications: Reviewed: Yes Medication Review Details: Current Medications Acetaminophen (Tylenol) 650 mg PO Q6H PRN PRN Reason: MILD PAIN Last Admin: 04/22/20 02:44 Dose: 650 mg Documented by: Albuterol/Ipratropium (Duoneb) 3 ml INHALATION Q6H PRN PRN Reason: SHORTNESS OF BREATH Last Admin: 04/25/20 09:53 Dose: 3 ml Documented by: Amiodarone HCl (Cordarone) 200 mg PO DAILY [facility] Benzonatate (Tessalon Pearls) 100 mg PO TID [facility] Last Admin: 04/29/20 15:23 Dose: 100 mg Documented by: Bisacodyl (Dulcolax) 4 mg PO ONCE ONE Stop: 04/29/20 18:01 Denture Adhesive (Fixodent) 1 applic DENTAL PRN PRN PRN Reason: denture adhesive Last Admin: 04/14/20 13:27 Dose: 1 applic Documented by: Ferrous Gluconate (Ferrous Gluconate) 324 mg PO BIDWM [facility] Furosemide (Lasix) 40 mg IVP Q12H [facility] Last Admin: 04/29/20 15:37 Dose: 40 mg Documented by: Levofloxacin/Dextrose (Levaquin-D5w) 500 mg in 100 mls @ 100 mls/hr IV Q48H [facility]; Protocol Last Admin: 04/28/20 14:35 Dose: 100 mls/hr Documented by: Loperamide HCl (Imodium Capsule) 2 mg PO QID PRN PRN Reason: DIARRHEA Last Admin: 04/29/20 11:14 Dose: 2 mg Documented by: Magnesium Citrate (Magnesium Citrate) 296 ml PO 1600,2000 [facility] Stop: 04/29/20 20:01 Last Admin: 04/29/20 16:39 Dose: 296 ml Documented by: Metoprolol Tartrate (Lopressor) 75 mg PO BID [facility] Last Admin: 04/29/20 08:33 Dose: 75 mg Documented by: Morphine Sulfate (Morphine) 1 mg IVP Q6H PRN PRN Reason: SEVERE PAIN Last Admin: 04/23/20 11:09 Dose: 1 mg Documented by: Neomycin/Polymyxin/Bacitracin (Neosporin Oint Tube) 1 applic TOPICAL BID [facility] Nystatin (Nystatin) 500,000 unit PO QID [facility] Last Admin: 04/29/20 15:23 Dose: 500,000 unit Documented by: Ondansetron HCl (Zofran) 4 mg IVP Q6H PRN PRN Reason: NAUSEA AND VOMITING Last Admin: 04/25/20 13:49 Dose: 4 mg Documented by: Oxycodone/Acetaminophen (Percocet 10-325 Mg) 1 tab PO Q4H PRN PRN Reason: SEVERE PAIN Oxycodone/Acetaminophen (Percocet 5-325 Mg) 1 tab PO Q4H PRN PRN Reason: MODERATE PAIN Last Admin: 04/29/20 03:51 Dose: 1 tab Documented by: Sevelamer Carbonate (Renvela) 2,400 mg PO TIDWM [facility] Last Admin: 04/29/20 15:23 Dose: 2,400 mg Documented by: Vitals/I&O/Wt Last Vital Signs Temp 98.0 F 04/29/20 11:46 Pulse 59 L 04/29/20 11:46 Resp 18 04/29/20 11:46 BP 115/66 04/29/20 11:46 Pulse Ox 98 04/29/20 11:46 04/29/20 04/29/20 04/29/20 06:59 14:59 22:59 Intake Total 350 / 830 120 / 120 Output Total 0 / 200 Balance 350 / 630 120 / 120 Physical Exam Narrative: EXAM NARRATIVE: GENERAL: Patient is alert and is on oxygen by nasal cannula, 2 L/min HEENT: Minimal pallor, no icterus or lymphadenopathy. NECK: Trachea appears to be central. No masses noted. No JVD or thyromegaly appreciated. No carotid bruit. Status post tunneled right subclavian catheter placement for dialysis. RESPIRATORY: Chest is symmetrical. No intercostals muscle retraction or any accessory muscle activation. There is no chest wall tenderness. Breath sounds are heard bilaterally. Breath sounds are diminished at the right base BREASTS: Deferred. HEART: The PMI could not be palpated. No palpable precordial events. S1 and S2 are normal. No S3 or S4 heard. No pericardial rub or any click heard. ABDOMEN: No vessel pulsations or distention. No tenderness. No organomegaly appreciated. No abdominal bruit. Bowel sounds are normally heard. : Deferred. RECTAL: Deferred. LYMPHATIC: No lymphadenopathy noted in the neck. EXTREMITIES: 1-2+ edema both lower extremities. No cyanosis. MUSCULOSKELETAL: No acute joint deformities or swelling SKIN: No skin rashes NEUROPSYCHIATRIC: No obvious neurological deficits. Urinary Catheter Management^: Torres: Cath Placed During This Visit: yes, but has since been removed by the nurse Reason for Continuing Indwelling Catheter: Acute Urinary Retention or Obstruction Urinary Catheter Date of Insertion: 04/22/20 Urinary Catheter Time of Insertion: 08:47 Date Urinary Catheter Removed: 04/21/20 Time Urinary Catheter Discontinued: 17:30 Data : 04/29/20 05:15 04/29/20 05:15 Micro: Microbiology 04/26/20 09:08 Anaerobic Culture - Preliminary Arm - #2 04/28/20 13:05 Stool Lactoferrin - Final Stool Parasite Antigen Panel - Final 04/26/20 09:08 Gram Stain - Final Arm - #1 Abscess Culture - Final 04/21/20 11:20 Gram Stain - Final Pleural Fluid Anaerobic Culture - Final Body Fluid Culture - Final A&P Assessment and plan (1) New onset atrial fibrillation: She remains in sinus rhythm. On amiodarone 200 mg BID and metoprolol. -change to amiodarone 200 mg daily on 04/30/20. - Eliquis held. The hemoglobin is 8.8 today Status: Acute (2) Acute diastolic heart failure: She is undergoing dialysis for fluid management. Currently she seems to be compensated Status: Acute (3) Pleural effusion: Patient seems to have recurrent pleural effusion on the right side. Status: Acute (4) Metastatic cancer: Lung CA with recurrent pleural effusion, no worsening of the effusion at this time. 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 Currently has no fever. Status: Acute (6) Acute kidney injury: Dialysis as per the nephrology. Status: Acute Additional A&P Information GI bleed anemia s/p pRBC transfusion Hypoalbuminemia Generalized weakness Continue on the other current measures. 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
[2020-04-29] MEDS: ferrous gluconate 324 mg Tablet PO (18:28)
[2020-04-29] MEDS: bisacodyl 5 mg Tablet 4 MG PO (18:29)
[2020-04-29 19:59] LABS: Iron 31 ug/dL (37-145); Percent Saturation 14.6 % (20-50); Total Iron Binding Capacity 211 mcg/dl; Unsaturated Iron Binding 180 ug/dL (112-347)
[2020-04-29] MEDS: ondansetron 2 mg/ML SDV 2 mL 4 MG IVP (23:16)
[2020-04-30] VITALS (12 sets, daily range): BP systolic 103–116; BP diastolic 61–75; PULSE 65–79; RESP 16–20; TEMP 36.4–37; O2SAT 87–97
[2020-04-30] MEDS: FUROsemide 10 mg/mL SDV 4mL 40 MG IVP (02:55)
[2020-04-30 07:08] LABS: Basophils % 0.6 %; Eosinophils # 0.1 10^3/uL (0.0-0.8); Eosinophils % 1.9 %; Hematocrit 29.1 % (37.0-47.0); Hemoglobin 9.3 g/dL (11.5-15.3); Lymphocytes # 0.8 10^3/uL (0.8-4.8); Lymphocytes % 25.7 %; Mean Corpuscular Hemoglobin 30.4 pg (28.0-34.0); Mean Corpuscular Volume 95.1 fL (81-99); Mean Platelet Volume 10.5 fL (7.4-10.4); Monocytes # 0.7 10^3/uL (0.2-0.9); Monocytes % 20.9 %; Neutrophils % 45.1 %; Nucleated Red Blood Cells % 0 %; Platelet Count 211 10^3/cmm (130-400); Red Blood Count 3.06 10^6/uL (4.1-5.3); Red Cell Distribution Width 13.2 % (12.1-15.1); White Blood Count 3.1 10^3/uL (4.0-10.0)
[2020-04-30 07:10] LABS: Slide Review Slide Review Perform
--- NOTE | 2020-04-30 09:06 | PC.NURSE ---
Prn note Patient is off the floor for a procedure
--- NOTE | 2020-04-30 09:22 | P.ANESASSM_ITS ---
Pre-Anesthetic Assessment Pre-Anesthetic Assessment: Height/Weight: Height 1.65 m Weight 92.76 kg Temp Pulse Resp BP Pulse Ox 97.7 F 71 20 H 110/64 96 04/30/20 09:20 04/30/20 09:20 04/30/20 09:20 04/30/20 09:20 04/30/20 09:20 Preop Diagnosis: crf Proposed Procedure: Operation Date: 04/26/20 08:05 Proposed Procedures p Incision And Drainage left forearm, exchange of hemodialysis cath(Left) - Steve Caal MD Operation Date: 04/30/20 09:30 Proposed Procedures p EGD/Colonoscopy(Not Applicable) - Steve Caal MD Familial anesthetic complications: NOne Was Beta Mushtaq taken within 24 hours: N/A Last intake: Intake Last Liquid Date 04/25/20 Last Liquid Time 23:50 Last Solid Date 04/25/20 Last Solid Time 22:00 Exam: Pre-Anes Outpt Exam: alert, oriented x 3, clear to auscultation bilaterally and regular rate & rhythm Airway: Cervical ROM: WNL MP: 3 Dentition: Other (no teeth) Pulmonary: Pulmonary: COPD Comments: metastatic lung cancer /w R pleural effusion and postobstructive plneumonia on antibiotics currently on 1 L NC and satting well, no resp distress CV/HEM: CV/HEM: Afib (new onset, seen by cardiology, placed on amiodarone and eliquis, no holding eliquis for bleed), CHF (diastolic), DVT and HTN Comments: echo 04/09/20 EF 60% no abnormaltiies : Comments: DIONISIO on dialysis ATN GI: Comments: GI bleed (tarry black stools, denies nausea and vomiting Metabolic: Comments: neutropenia Anesthetic Plan: ASA status: 4 Anesthesia: MAC Risk of > 500 ml blood loss (7ml/kg in children): No Meds/Allergies Current Medications: Current Medications Generic Name Dose Route Start Last Admin Trade Name Freq PRN Reason Stop Dose Admin Acetaminophen 650 mg 04/09/20 18:35 04/22/20 02:44 Tylenol PO 650 mg Q6H PRN Administration MILD PAIN Albuterol/Ipratrop ium 3 ml 04/08/20 21:53 04/25/20 09:53 Duoneb INHALATION 3 ml Q6H PRN Administration SHORTNESS OF MAG TH Benzonatate 100 mg 04/29/20 15:00 04/29/20 22:38 Tessalon Pearls PO 100 mg TID [facility] Administration Denture Adhesive 1 applic 04/09/20 10:34 04/14/20 13:27 Fixodent DENTAL 1 applic PRN PRN Administration denture adhesive Ferrous Gluconate 324 mg 04/29/20 18:00 04/29/20 18:34 Ferrous Gluconat e PO Not Given BIDWM [facility] Furosemide 40 mg 04/24/20 07:15 04/30/20 02:55 Lasix IVP 40 mg Q12H [facility] Administration Levofloxacin/Dextr ose 500 mg in 100 mls @ 100 mls/hr 04/26/20 14:30 04/28/20 14:35 Levaquin-D5w IV 100 mls/hr Q48H [facility] Administration Protocol Loperamide HCl 2 mg 04/27/20 15:48 04/29/20 11:14 Imodium Capsule PO 2 mg QID PRN Administration DIARRHEA Metoprolol Tartrat e 75 mg 04/22/20 18:00 04/29/20 18:28 Lopressor PO 75 mg BID [facility] Administration Morphine Sulfate 1 mg 04/22/20 20:22 04/23/20 11:09 Morphine IVP 1 mg Q6H PRN Administration SEVERE PAIN Neomycin/Polymyxin /Bacitracin 1 applic 04/29/20 18:00 04/29/20 18:30 Neosporin Oint T ube TOPICAL Not Given BID [facility] Nystatin 500,000 unit 04/14/20 13:00 04/29/20 22:38 Nystatin PO Not Given QID [facility] Ondansetron HCl 4 mg 04/20/20 20:04 04/29/20 23:16 Zofran IVP 4 mg Q6H PRN Administration NAUSEA AND VOMITI NG Oxycodone/Acetamin ophen 1 tab 04/23/20 16:45 04/29/20 03:51 Percocet 5-325 M g PO 1 tab Q4H PRN Administration MODERATE PAIN Sevelamer Carbonat e 2,400 mg 04/22/20 08:00 04/29/20 22:55 Renvela PO Not Given TIDWM [facility] Additional Medication Information: Current Medications Acetaminophen (Tylenol) 650 mg PO Q6H PRN PRN Reason: MILD PAIN Last Admin: 04/22/20 02:44 Dose: 650 mg Documented by: Albuterol/Ipratropium (Duoneb) 3 ml INHALATION Q6H PRN PRN Reason: SHORTNESS OF BREATH Last Admin: 04/25/20 09:53 Dose: 3 ml Documented by: Amiodarone HCl (Cordarone) 200 mg PO DAILY [facility] Benzonatate (Tessalon Pearls) 100 mg PO TID [facility] Last Admin: 04/29/20 15:23 Dose: 100 mg Documented by: Bisacodyl (Dulcolax) 4 mg PO ONCE ONE Stop: 04/29/20 18:01 Denture Adhesive (Fixodent) 1 applic DENTAL PRN PRN PRN Reason: denture adhesive Last Admin: 04/14/20 13:27 Dose: 1 applic Documented by: Ferrous Gluconate (Ferrous Gluconate) 324 mg PO BIDWM [facility] Furosemide (Lasix) 40 mg IVP Q12H [facility] Last Admin: 04/29/20 15:37 Dose: 40 mg Documented by: Levofloxacin/Dextrose (Levaquin-D5w) 500 mg in 100 mls @ 100 mls/hr IV Q48H [facility]; Protocol Last Admin: 04/28/20 14:35 Dose: 100 mls/hr Documented by: Loperamide HCl (Imodium Capsule) 2 mg PO QID PRN PRN Reason: DIARRHEA Last Admin: 04/29/20 11:14 Dose: 2 mg Documented by: Magnesium Citrate (Magnesium Citrate) 296 ml PO 1600,2000 [facility] Stop: 04/29/20 20:01 Last Admin: 04/29/20 16:39 Dose: 296 ml Documented by: Metoprolol Tartrate (Lopressor) 75 mg PO BID [facility] Last Admin: 04/29/20 08:33 Dose: 75 mg Documented by: Morphine Sulfate (Morphine) 1 mg IVP Q6H PRN PRN Reason: SEVERE PAIN Last Admin: 04/23/20 11:09 Dose: 1 mg Documented by: Neomycin/Polymyxin/Bacitracin (Neosporin Oint Tube) 1 applic TOPICAL BID [facility] Nystatin (Nystatin) 500,000 unit PO QID [facility] Last Admin: 04/29/20 15:23 Dose: 500,000 unit Documented by: Ondansetron HCl (Zofran) 4 mg IVP Q6H PRN PRN Reason: NAUSEA AND VOMITING Last Admin: 04/25/20 13:49 Dose: 4 mg Documented by: Oxycodone/Acetaminophen (Percocet 10-325 Mg) 1 tab PO Q4H PRN PRN Reason: SEVERE PAIN Oxycodone/Acetaminophen (Percocet 5-325 Mg) 1 tab PO Q4H PRN PRN Reason: MODERATE PAIN Last Admin: 04/29/20 03:51 Dose: 1 tab Documented by: Sevelamer Carbonate (Renvela) 2,400 mg PO TIDWM [facility] Last Admin: 04/29/20 15:23 Dose: 2,400 mg Documented by: PFSH Anesthesia PFS: Medical History (Updated 04/29/20 @ 16:04 by Steve Caal MD) Acute diastolic heart failure Acute kidney injury Malignant neoplasm of right main bronchus This patient presents with CT evidence of primary lung cancer at the right hilum. There is associated postobstructive pneumonia and right pleural effusion. There is associated mediastinal and bilateral hilar adenopathy and there are satellite nodules in both lungs as well as extensive metastatic involvement in the liver. 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 Pathology on the liver biopsy is still pending at this time. She does have very poor performance status, and her further management will also be complicated by the acute renal injury. However, if it is small cell cancer, there will still be potential for response to chemotherapy. Metastatic lung cancer (metastasis from lung to other site) New onset atrial fibrillation Pneumonia Spontaneous tumor lysis syndrome Surgical History (Updated 04/29/20 @ 16:04 by Steve Caal MD) Hx of drainage of abscess (04/26/20) S/P dialysis catheter insertion (~04/26/20) Family History Mother CAD (coronary artery disease) Social History Smoking and tobacco status: current every day smoker cigarettes [ Other cigarette details: She has smoked for 45 years up to a pack and a half of cigarettes daily. ] Alcohol intake: former Other details last alcohol use: She has a long history of alcohol use which had increased over the past 10 years up to 12 pack of beer per day. She quit 3 to 4 months ago. Household members: family Housing: House Data Anesthesia CBC & Chem 7: 04/30/20 05:13 04/29/20 05:15 Other Labs: Laboratory Results - last 48 hr 04/26/20 04/28/20 04/28/20 06:18 10:20 10:20 WBC 1.7 L RBC 2.52 L Hgb 7.6 L Hct 23.9 L MCV 94.8 MCH 30.2 MCHC 31.8 RDW 13.8 Plt Count 147 MPV 11.6 H Neut % (Auto) 45.8 Lymph % (Auto) 33.7 [place] % (Auto) 16.3 Eos % (Auto) 2.4 Baso % (Auto) 0.6 Reticulocyte % (Auto) Neut # (Auto) 0.76 L* Lymph # (Auto) 0.6 L [place] # (Auto) 0.3 Eos # (Auto) 0.0 Baso # (Auto) 0.0 Nucleated RBC % (auto) 0 Nucleated RBCs # 0.0 Sodium 129 L Potassium 4.1 Chloride 93 L Carbon Dioxide 26 Anion Gap 14.1 BUN 28 H Creatinine 3.1 H GFR Calculation 15.2 L Glucose 111 Calculated Osmolality 274 L Calcium 8.4 L Iron TIBC % Saturation Unsat Iron Binding Blood Type O Positive Rho(D) Type Positive Antibody Screen Negative Crossmatch See Detail 04/28/20 04/29/20 04/29/20 17:30 05:15 05:15 WBC 1.7 L RBC 2.90 L Hgb 8.8 L Hct 27.2 L MCV 93.8 MCH 30.3 MCHC 32.4 RDW 13.2 Plt Count 168 MPV 11.1 H Neut % (Auto) 43.1 Lymph % (Auto) 34.3 [place] % (Auto) 17.4 Eos % (Auto) 2.3 Baso % (Auto) 0.6 Reticulocyte % (Auto) Neut # (Auto) 0.74 L* Lymph # (Auto) 0.6 L [place] # (Auto) 0.3 Eos # (Auto) 0.0 Baso # (Auto) 0.0 Nucleated RBC % (auto) 0 Nucleated RBCs # 0.0 Sodium 131 L Potassium 4.2 Chloride 95 L Carbon Dioxide 24 Anion Gap 16.2 BUN 30 H Creatinine 3.4 H GFR Calculation 13.7 L Glucose 107 Calculated Osmolality 279 L Calcium 8.4 L Iron TIBC % Saturation Unsat Iron Binding Blood Type O Positive Rho(D) Type Positive Antibody Screen Negative Crossmatch See Detail 04/29/20 04/29/20 04/30/20 05:15 05:15 05:13 WBC 3.1 L RBC 3.06 L Hgb 9.3 L Hct 29.1 L MCV 95.1 MCH 30.4 MCHC 32.0 RDW 13.2 Plt Count 211 MPV 10.5 H Neut % (Auto) 45.1 Lymph % (Auto) 25.7 [place] % (Auto) 20.9 Eos % (Auto) 1.9 Baso % (Auto) 0.6 Reticulocyte % (Auto) 1.6000 Neut # (Auto) 1.40 L Lymph # (Auto) 0.8 [place] # (Auto) 0.7 Eos # (Auto) 0.1 Baso # (Auto) 0.0 Nucleated RBC % (auto) 0 Nucleated RBCs # 0.0 Sodium Potassium Chloride Carbon Dioxide Anion Gap BUN Creatinine GFR Calculation Glucose Calculated Osmolality Calcium Iron 31 L TIBC 211 % Saturation 14.6 L Unsat Iron Binding 180 Blood Type Rho(D) Type Antibody Screen Crossmatch Micro: Microbiology 04/26/20 09:08 Anaerobic Culture - Preliminary Arm - #2 04/28/20 13:05 Stool Lactoferrin - Final Stool Parasite Antigen Panel - Final 04/26/20 09:08 Gram Stain - Final Arm - #1 Abscess Culture - Final Cardiac Studies: No Data to Display
[2020-04-30] MEDS: sodium chloride 0.9% 1,000 ML 30 ML IV (09:28)
[2020-04-30 09:34] LABS: Albumin Level 2.3 g/dL (3.5-5.2); Blood Urea Nitrogen 30 mg/dL (8-23); Calcium 8.6 mg/dL (8.5-10.5); Carbon Dioxide 22 mmol/L (22-29); Chloride 94 mmol/L (98-107); Glomerular Filtration Rate 11.7 mL/min (90-130); Glucose 92 mg/dL (65-115); Phosphorus 4.5 mg/dL (2.5-4.5); Sodium 130 mmol/L (136-145)
--- NOTE | 2020-04-30 10:47 | P.PN_ITS ---
Subjective Subjective: Interval history: No issues overnight, no evidence of active GI bleed Vitals/I&O/Wt Last Vital Signs Temp 98.4 F 04/30/20 10:43 Pulse 67 04/30/20 10:43 Resp 16 04/30/20 10:43 BP 103/61 04/30/20 10:43 Pulse Ox 95 04/30/20 10:43 04/29/20 04/30/20 04/30/20 22:59 06:59 14:59 Intake Total 0 / 120 Balance 0 / 120 Physical Exam Narrative: EXAM NARRATIVE: Abdomen: Soft Urinary Catheter Management^: Torres: Cath Placed During This Visit: yes, but has since been removed by the nurse Reason for Continuing Indwelling Catheter: Acute Urinary Retention or Obstruction Urinary Catheter Date of Insertion: 04/22/20 Urinary Catheter Time of Insertion: 08:47 Date Urinary Catheter Removed: 04/21/20 Time Urinary Catheter Discontinued: 17:30 Data : 04/30/20 05:13 04/30/20 05:13 Micro: Microbiology 04/26/20 09:08 Anaerobic Culture - Preliminary Arm - #2 04/28/20 13:05 Stool Lactoferrin - Final Stool Parasite Antigen Panel - Final 04/26/20 09:08 Gram Stain - Final Arm - #1 Abscess Culture - Final A&P Assessment and plan (1) Anemia: Plan for EGD/colonoscopy under MAC Procedure, risks, benefits and alternatives have been discussed with the patient who wishes to proceed with surgery. 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
--- NOTE | 2020-04-30 11:00 | PM.PACU ---
PACU note Post-Anesthesia Exam: awake and vital signs stable Disposition: back to floor
--- NOTE | 2020-04-30 11:14 | PC.NURSE ---
Return from surgery Patient returned from GI lab after scope. She is alert and oriented in all aspects. She denies pain at this time. Hr 66, bp 124/79, 97% on 2l via nc. She is drinking beef broth in anticipation of taking oral meds. Noted to have GI soft diet for lunch.
[2020-04-30] MEDS: loperamide 2 mg Capsule PO ×3 (12:01→23:53)
--- NOTE | 2020-04-30 13:09 | P.PN_ITS ---
Subjective Subjective: Interval history: No events overnight. Patient underwent EGD and colonoscopy today morning on which she was found to have a healing duodenal ulcer and multiple polyps which were biopsied. Patient did not have any events overnight. Saturating 98% on 2 L and oxygen was reduced to 1 L for which she is completely saturated 96%. Patient is anxious about discharge tomorrow. Denies of having nausea, vomiting, headache. Complaining of diarrhea which has been bothering her for many weeks. Diarrhea is most likely because of contrast for colonoscopy. Vitals/I&O/Wt Last Vital Signs Temp 98.6 F 04/30/20 12:00 Pulse 69 04/30/20 12:00 Resp 18 04/30/20 12:00 BP 116/71 04/30/20 12:00 Pulse Ox 96 04/30/20 12:00 04/29/20 04/30/20 04/30/20 22:59 06:59 14:59 Intake Total 0 / 120 75 / 75 Balance 0 / 120 75 / 75 Physical Exam Narrative: EXAM NARRATIVE: General: No acute distress, AO x3 HEENT: PERRLA, pupils bilaterally equal and reactive Chest:Bilateral occasional rhonchi present, decreased air entry right lower zone, equal good air entry bilaterally CVS: S1-S2 regular, no murmurs, no tachycardia, no gallops, no rubs Abdomen: Soft, nontender, no organomegaly, bowel sounds present Neuro: No focal deficits, no facial deformity, AO x3, power 5/5 in all limbs Urinary Catheter Management^: Torres: Cath Placed During This Visit: yes, but has since been removed by the nurse Reason for Continuing Indwelling Catheter: Acute Urinary Retention or Obstruction Urinary Catheter Date of Insertion: 04/22/20 Urinary Catheter Time of Insertion: 08:47 Date Urinary Catheter Removed: 04/21/20 Time Urinary Catheter Discontinued: 17:30 Data : 04/30/20 05:13 04/30/20 05:13 Micro: Microbiology 04/26/20 09:08 Anaerobic Culture - Preliminary Arm - #2 04/28/20 13:05 Stool Lactoferrin - Final Stool Parasite Antigen Panel - Final 04/26/20 09:08 Gram Stain - Final Arm - #1 Abscess Culture - Final A&P Assessment and plan (1) Neutropenia: Status: Acute (2) Sepsis with acute hypoxic respiratory failure: Status: Acute Qualifiers: Sepsis type: sepsis due to unspecified organism Severe sepsis shock status: without septic shock Qualified Code(s): A41.9 - Sepsis, unspecified organism; R65.20 - Severe sepsis without septic shock; J96.01 - Acute respiratory failure with hypoxia (3) Recurrent right pleural effusion: Status: Acute (4) Metastatic lung cancer (metastasis from lung to other site): Status: Acute Qualifiers: Laterality: right Qualified Code(s): C34.91 - Malignant neoplasm of unspecified part of right bronchus or lung (5) ATN (acute tubular necrosis): Status: Acute (6) Pneumonia: Status: Acute Qualifiers: Laterality: right Lung location: unspecified part of lung Pneumonia type: due to unspecified organism Qualified Code(s): J18.9 - Pneumonia, unspecified organism (7) Hyponatremia: Status: Acute (8) New onset of congestive heart failure: Status: Acute (9) Abnormal transaminases: Status: Acute (10) Leukocytosis: Status: Resolved Qualifiers: Leukocytosis type: unspecified Qualified Code(s): D72.829 - Elevated white blood cell count, unspecified Additional A&P Information Leukopenia with Neutropenia: Patient is 1 week out of chemotherapy. Patient received carboplatin and etoposide. It is typical for patient well-appearing leukopenia and neutropenia 1 week after chemotherapy. Case discussed with Dr. Lees. Has advised filgrastim 40 subcu daily for 1 week. Day 2/7 We will monitor for neutropenic fever. Reverse isolation. Anemia: Most likely multifactorial. Most likely from pancytopenia from recent chemotherapy. Patient stool for occult blood positive. Hemoglobin 9.3. EGD/colonoscopy results appreciated. Start patient on Protonix 40 mg oral daily along with Carafate. Patient can most likely start Eliquis in next 2 weeks and after that we will have to monitor hemoglobin. Dr. Higuera recommendations appreciated. Hypoxic respiratory failure:Multifactorial,(pneumonia, heart failure, bilateral pleural effusion, post obstructive pneumonia from bronchial obstruction). Postobstructive pneumonia: Patient is on levofloxacin at present. Day 510. MRSA negative. 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 Good resolution of pleural effusion. Chest tube has been removed. Given nature of pleural effusion, she will potentially require Pleurx catheter in future, if reaccumulation takes place. Rt Pneumothorax: S/P thoracentesis and chest tube placement. Serial xary have shown resolution of rt PTX.Continue to monitor with xray chest. We will repeat chest x-ray tomorrow morning to monitor both for right pleural effusion or pneumothorax. Oxygen supplementation keeping saturation over 92%. Will need home oxygen evaluation prior to discharge. #DIONISIO most likely secondary to ATN.: Secondary to contrast nephropathy, vancomyc in associated ATN. Currently on hemodialysis. Post tunnel cath done in April 26. Awaiting chair for dialysis as an outpatient. Appreciate pulmonary and renal recommendations #Diarrhea: Likely medication side effects.C diff ruled out. On imimodium #Rt forearm abscess: Currently on levofloxacin,S/P I&d by surgery #Sepsis, likel 2/2 to PNA Present on admission, has now resolved.She has been on broad spectrm abx for extnded period of time (Namely Vancomycin, meropenam, doxycycline ) Cultures have been negative so far. Mycobacterial Smear - Preliminary:No acid fast bacilli seen: Fungal Smear : No fungal elements seen. No fungi isolated to date. Blood cultures negative till date. MRSA culture nares negative. C. difficile PCR negative. Legionella negative, bacterial antigen panel negative. Currently not on pressors. #Hyponatremia. consistent with SIADH. Possibly it is secondary to lung disease and malignancy. Appreciate nephrology recommendations. Start patient on salt tablets. And fluid restrictions. New onset atrial fibrillation with RVR. Currently on amiodarone 200 mg twice daily along with metoprolol 75 mg twice daily. Patient is bradycardic. We will switch over to 200 mg of amiodarone daily from twice daily. Hold eliquis.2.5 mg q12 h daily because of uri Right jugular and cephalic DVT: Holding Eliquis right now because of GI bleed. SCDs, holding Eliquis because of GI bleed. Full code Attestations Medical Necessity Statement*: Anemia, postobstructive pneumonia, neutropenia, metastatic small cell lung cancer, DIONISIO on dialysis Time Spent in Patient Care: Greater than 35 minutes (>than 50% of time spent in counselling and/or direct pt care on unit) . Coding Level of Care Code Acute Pattern Carrier for [facility] Fwd Diagnoses Neutropenia D70.9 Sepsis with acute hypoxic respiratory failure A41.9; R65.20; J96.01 Sepsis type: sepsis due to unspecified organism Severe sepsis shock status: without septic shock Recurrent right pleural effusion J90 Metastatic lung cancer (metastasis from lung to other site) C34.91 Laterality: right ATN (acute tubular necrosis) N17.0 Pneumonia J18.9 Laterality: right Lung location: unspecified part of lung Pneumonia type: due to unspecified organism Hyponatremia E87.1 New onset of congestive heart failure I50.9 Abnormal transaminases R74.8 Leukocytosis D72.829 Leukocytosis type: unspecified
--- NOTE | 2020-04-30 13:25 | P.PN_ITS ---
Subjective Subjective: Interval history: Feels ok, just got back from EGD/ Colonoscopy where she was found to have non bleeding PUD and 2 polyps which were snared. No uremic Sx Passing urine but with the loose stool from bowel prep this has been hard to quantify No other acute issues today Breathing comfortably Medications: Reviewed: Yes Medication Review Details: Current Medications Acetaminophen (Tylenol) 650 mg PO Q6H PRN PRN Reason: MILD PAIN Last Admin: 04/22/20 02:44 Dose: 650 mg Documented by: Albuterol/Ipratropium (Duoneb) 3 ml INHALATION Q6H PRN PRN Reason: SHORTNESS OF BREATH Last Admin: 04/25/20 09:53 Dose: 3 ml Documented by: Amiodarone HCl (Cordarone) 200 mg PO DAILY [facility] Benzonatate (Tessalon Pearls) 100 mg PO TID [facility] Last Admin: 04/29/20 15:23 Dose: 100 mg Documented by: Bisacodyl (Dulcolax) 4 mg PO ONCE ONE Stop: 04/29/20 18:01 Denture Adhesive (Fixodent) 1 applic DENTAL PRN PRN PRN Reason: denture adhesive Last Admin: 04/14/20 13:27 Dose: 1 applic Documented by: Ferrous Gluconate (Ferrous Gluconate) 324 mg PO BIDWM [facility] Furosemide (Lasix) 40 mg IVP Q12H [facility] Last Admin: 04/29/20 15:37 Dose: 40 mg Documented by: Levofloxacin/Dextrose (Levaquin-D5w) 500 mg in 100 mls @ 100 mls/hr IV Q48H [facility]; Protocol Last Admin: 04/28/20 14:35 Dose: 100 mls/hr Documented by: Loperamide HCl (Imodium Capsule) 2 mg PO QID PRN PRN Reason: DIARRHEA Last Admin: 04/29/20 11:14 Dose: 2 mg Documented by: Magnesium Citrate (Magnesium Citrate) 296 ml PO 1600,2000 [facility] Stop: 04/29/20 20:01 Last Admin: 04/29/20 16:39 Dose: 296 ml Documented by: Metoprolol Tartrate (Lopressor) 75 mg PO BID [facility] Last Admin: 04/29/20 08:33 Dose: 75 mg Documented by: Morphine Sulfate (Morphine) 1 mg IVP Q6H PRN PRN Reason: SEVERE PAIN Last Admin: 04/23/20 11:09 Dose: 1 mg Documented by: Neomycin/Polymyxin/Bacitracin (Neosporin Oint Tube) 1 applic TOPICAL BID [facility] Nystatin (Nystatin) 500,000 unit PO QID [facility] Last Admin: 04/29/20 15:23 Dose: 500,000 unit Documented by: Ondansetron HCl (Zofran) 4 mg IVP Q6H PRN PRN Reason: NAUSEA AND VOMITING Last Admin: 04/25/20 13:49 Dose: 4 mg Documented by: Oxycodone/Acetaminophen (Percocet 10-325 Mg) 1 tab PO Q4H PRN PRN Reason: SEVERE PAIN Oxycodone/Acetaminophen (Percocet 5-325 Mg) 1 tab PO Q4H PRN PRN Reason: MODERATE PAIN Last Admin: 04/29/20 03:51 Dose: 1 tab Documented by: Sevelamer Carbonate (Renvela) 2,400 mg PO TIDWM [facility] Last Admin: 04/29/20 15:23 Dose: 2,400 mg Documented by: Vitals/I&O/Wt Last Vital Signs Temp 98.6 F 04/30/20 12:00 Pulse 69 04/30/20 12:00 Resp 18 04/30/20 12:00 BP 116/71 04/30/20 12:00 Pulse Ox 96 04/30/20 12:00 04/29/20 04/30/20 04/30/20 22:59 06:59 14:59 Intake Total 0 / 120 75 / 75 Balance 0 / 120 75 / 75 Physical Exam Narrative: EXAM NARRATIVE: Constitutional: Awake, conversant, looks tired HEENT: Wet mucosa, no jvp, non icteric Lungs: Bilaterally clear without discernible wheeze or rales in all lung zones CVS: irregular Abdo: Soft, BS ok Ext 4: 1+ edema, peripheral perfusion with no cyanosis Neurological: Grossly non-focal Urinary Catheter Management^: Torres: Cath Placed During This Visit: yes, but has since been removed by the nurse Reason for Continuing Indwelling Catheter: Acute Urinary Retention or Obstruction Urinary Catheter Date of Insertion: 04/22/20 Urinary Catheter Time of Insertion: 08:47 Date Urinary Catheter Removed: 04/21/20 Time Urinary Catheter Discontinued: 17:30 Data : 04/30/20 05:13 04/30/20 05:13 Micro: Microbiology 04/26/20 09:08 Anaerobic Culture - Preliminary Arm - #2 04/28/20 13:05 Stool Lactoferrin - Final Stool Parasite Antigen Panel - Final 04/26/20 09:08 Gram Stain - Final Arm - #1 Abscess Culture - Final A&P Additional A&P Information 1. DIONISIO - ATN in the setting of contrast and Vanco tubular toxicity - creatinine drifting up to 3.9, ie not clearing yet. Plan for dialysis tomorrow - close monitoring for recovery - am renal panel - avoid the usuals 2. Lytes - with minor non critical aberration including mild SIADH - monitor for now 3. New diagnosis of Small Cell lung cancer - s/p Etoposide and Cisplatin dosing per Oncology; second dosing coming up soon 4. Post obstructive pneumonia - Levaquin - cultures noted; unrevealing - s/p chest tube 5. Hyperphos - on binder therapy 6. Anemia - s/p 2 units few days ago - anticoagulation held - EGD/ Colonoscopy: found to have non bleeding PUD and 2 polyps which were snared 7. D/w CM, regarding outpatient dialysis set up; issues with payer source Andrew Travis MD [facility] Renal Telemed [phone] Interview and exam performed with the aid of bedside RN using telemed Attestations Medical Necessity Statement*: Eval for DIONISIO Coding Level of Care Code Acute Dye Range Operator for [facility] Pratt
[2020-04-30] MEDS: benzonatate 100 mg Capsule PO ×2 (14:23→20:55)
[2020-04-30] MEDS: amiodarone 200 mg Tablet PO (14:23)
[2020-04-30] MEDS: sevelamer 800 mg Tablet 2400 MG PO (14:23)
[2020-04-30] MEDS: ferrous gluconate 324 mg Tablet PO ×2 (14:23→17:31)
[2020-04-30] MEDS: neomycin-poly-bacitracin oint 28 gm 1 APPLIC TOPICAL (14:24)
[2020-04-30] MEDS: nystatin 100,000 unit/mL UDC 5 mL 500000 UNIT PO ×2 (14:24→20:55)
[2020-04-30] MEDS: levofloxacin-dextrose 5 % 500 MG/100 ML PREMIX 100 MG IV (14:31)
--- NOTE | 2020-04-30 14:54 | PC.NURSE ---
Meds note Patient returned from procedure at 1109, morning meds held until after patient returned. Upon returning patient has been reluctant to take am medications. Dr. Oneill notified and verbal order to give am meds this afternoon with adjustments made with pharmacy. Patient has had 3 episodes of loose stool since returning from procedure.
[2020-04-30] MEDS: sucralfate 1 gm/10 mL Oral Liq UDC PO ×2 (16:12→20:54)
--- NOTE | 2020-04-30 17:15 | P.PN_ITS ---
Subjective Subjective: Interval history: The patient is feeling okay. She has not had any chest pain or palpitations. Continues to stay in sinus rhythm. Medications: Reviewed: Yes Medication Review Details: Current Medications Acetaminophen (Tylenol) 650 mg PO Q6H PRN PRN Reason: MILD PAIN Last Admin: 04/22/20 02:44 Dose: 650 mg Documented by: Albuterol/Ipratropium (Duoneb) 3 ml INHALATION Q6H PRN PRN Reason: SHORTNESS OF BREATH Last Admin: 04/25/20 09:53 Dose: 3 ml Documented by: Amiodarone HCl (Cordarone) 200 mg PO DAILY [facility] Last Admin: 04/30/20 14:23 Dose: 200 mg Documented by: Benzonatate (Tessalon Pearls) 100 mg PO TID [facility] Last Admin: 04/30/20 14:30 Dose: Not Given Documented by: Denture Adhesive (Fixodent) 1 applic DENTAL PRN PRN PRN Reason: denture adhesive Last Admin: 04/14/20 13:27 Dose: 1 applic Documented by: Ferrous Gluconate (Ferrous Gluconate) 324 mg PO BIDWM [facility] Last Admin: 04/30/20 14:23 Dose: 324 mg Documented by: Filgrastim (Neupogen) 480 mcg SUBCUT Q24H [facility] Last Admin: 04/30/20 16:12 Dose: 480 mcg Documented by: Furosemide (Lasix) 40 mg IVP DAILY [facility] Levofloxacin/Dextrose (Levaquin-D5w) 500 mg in 100 mls @ 100 mls/hr IV Q48H [facility]; Protocol Last Admin: 04/30/20 14:31 Dose: 100 mls/hr Documented by: Loperamide HCl (Imodium Capsule) 2 mg PO QID PRN PRN Reason: DIARRHEA Last Admin: 04/30/20 12:01 Dose: 2 mg Documented by: Metoprolol Tartrate (Lopressor) 75 mg PO BID [facility] Last Admin: 04/30/20 12:51 Dose: Not Given Documented by: Morphine Sulfate (Morphine) 1 mg IVP Q6H PRN PRN Reason: SEVERE PAIN Last Admin: 04/23/20 11:09 Dose: 1 mg Documented by: Neomycin/Polymyxin/Bacitracin (Neosporin Oint Tube) 1 applic TOPICAL BID [facility] Last Admin: 10/13/20 14:24 Dose: 1 applic Documented by: Nystatin (Nystatin) 500,000 unit PO QID [facility] Last Admin: 04/30/20 16:11 Dose: Not Given Documented by: Ondansetron HCl (Zofran) 4 mg IVP Q6H PRN PRN Reason: NAUSEA AND VOMITING Last Admin: 04/29/20 23:16 Dose: 4 mg Documented by: Oxycodone/Acetaminophen (Percocet 10-325 Mg) 1 tab PO Q4H PRN PRN Reason: SEVERE PAIN Oxycodone/Acetaminophen (Percocet 5-325 Mg) 1 tab PO Q4H PRN PRN Reason: MODERATE PAIN Last Admin: 04/29/20 03:51 Dose: 1 tab Documented by: Pantoprazole Sodium (Protonix) 40 mg PO DAILY [facility] Sevelamer Carbonate (Renvela) 2,400 mg PO TIDWM [facility] Last Admin: 04/30/20 14:23 Dose: 2,400 mg Documented by: Sodium Chloride (Salt Tab) 1 gm PO BID [facility] Sucralfate (Carafate Oral Liq) 1 gm PO AC&BEDTIME [facility] Last Admin: 04/30/20 16:12 Dose: 1 gm Documented by: Vitals/I&O/Wt Last Vital Signs Temp 97.7 F 04/30/20 15:15 Pulse 67 04/30/20 15:15 Resp 18 04/30/20 15:15 BP 109/69 04/30/20 15:15 Pulse Ox 94 04/30/20 15:15 04/30/20 04/30/20 04/30/20 06:59 14:59 22:59 Intake Total 0 / 120 195 / 195 Balance 0 / 120 195 / 195 Physical Exam Narrative: EXAM NARRATIVE: GENERAL: Patient is alert and is on oxygen by nasal cannula, 2 L/min HEENT: Minimal pallor, no icterus or lymphadenopathy. NECK: Trachea appears to be central. No masses noted. No JVD or thyromegaly appreciated. No carotid bruit. Status post tunneled right subclavian catheter placement for dialysis. RESPIRATORY: Chest is symmetrical. No intercostals muscle retraction or any accessory muscle activation. There is no chest wall tenderness. Breath sounds are heard bilaterally. Breath sounds are diminished at the right base BREASTS: Deferred. HEART: The PMI could not be palpated. No palpable precordial events. S1 and S2 are normal. No S3 or S4 heard. No pericardial rub or any click heard. ABDOMEN: No vessel pulsations or distention. No tenderness. No organomegaly appreciated. No abdominal bruit. Bowel sounds are normally heard. : Deferred. RECTAL: Deferred. LYMPHATIC: No lymphadenopathy noted in the neck. EXTREMITIES: 1-2+ edema both lower extremities. No cyanosis. MUSCULOSKELETAL: No acute joint deformities or swelling SKIN: No skin rashes NEUROPSYCHIATRIC: No obvious neurological deficits. Urinary Catheter Management^: Torres: Cath Placed During This Visit: yes, but has since been removed by the nurse Reason for Continuing Indwelling Catheter: Acute Urinary Retention or Obstruction Urinary Catheter Date of Insertion: 04/22/20 Urinary Catheter Time of Insertion: 08:47 Date Urinary Catheter Removed: 04/21/20 Time Urinary Catheter Discontinued: 17:30 Data : 05/01/20 05:04 04/30/20 05:13 Micro: Microbiology 04/26/20 09:08 Anaerobic Culture - Preliminary Arm - #2 04/28/20 13:05 Stool Lactoferrin - Final Stool Parasite Antigen Panel - Final 04/26/20 09:08 Gram Stain - Final Arm - #1 Abscess Culture - Final A&P Assessment and plan (1) New onset atrial fibrillation: Patient may be continued on the amiodarone 200 mg p.o. daily. Status: Acute (2) Acute diastolic heart failure: Currently the heart failure is compensated. May continue on the current measures. Status: Acute (3) Pleural effusion: The pleural effusion seems to be stable Status: Acute (4) Metastatic cancer: Lung CA with recurrent pleural effusion, no worsening of the effusion at this time. 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 Currently has no fever. Status: Acute (6) Acute kidney injury: Dialysis as per the nephrology. Status: Acute Additional A&P Information GI bleed anemia s/p pRBC transfusion Hypoalbuminemia Generalized weakness Continue on the other current measures. Attestations Medical Necessity Statement*: Possible discharge home today. 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
[2020-04-30] MEDS: metoprolol tartrate 50 mg Tablet 75 MG PO (17:31)
[2020-04-30] MEDS: sodium chloride 1 gm Tablet PO (17:32)
[2020-04-30] MEDS: fixodent 39 gm Tube 1 APPLIC DENTAL (17:34)
--- NOTE | 2020-04-30 17:39 | PC.NURSE ---
Prn med note Upon entering room patient is noted to respond to staffs voice and steps. Staff informed patient that she had medications to administer. This staff member explained each med after verifying patients date of . Upon attempting to give patient her medications she became belligerent and stated she wanted to be left alone she had a stomach ache. Staff offered patient pain meds and she refused. Patient refused medications at this time. Meds were non administered. Physician notified.
[2020-04-30] MEDS: oxyCODONE-APAP 5-325 mg Tablet 1 TAB PO (20:53)
[2020-05-01] VITALS (8 sets, daily range): BP systolic 90–126; BP diastolic 56–76; PULSE 68–80; RESP 16–20; TEMP 36.3–36.6; O2SAT 85–98
[2020-05-01] MEDS: oxyCODONE-APAP 5-325 mg Tablet 1 TAB PO (03:53)
[2020-05-01 05:30] LABS: Hematocrit 28.5 % (37.0-47.0); Mean Corpuscular HGB Conc 31.6 g/dL (30.0-36.0); Mean Corpuscular Hemoglobin 30.2 pg (28.0-34.0); Mean Corpuscular Volume 95.6 fL (81-99); Mean Platelet Volume 10.3 fL (7.4-10.4); Platelet Count 257 10^3/cmm (130-400); Red Blood Count 2.98 10^6/uL (4.1-5.3); Red Cell Distribution Width 13.1 % (12.1-15.1); White Blood Count 7.1 10^3/uL (4.0-10.0)
[2020-05-01] MEDS: sucralfate 1 gm/10 mL Oral Liq UDC PO ×2 (06:24→13:00)
[2020-05-01] MEDS: loperamide 2 mg Capsule PO (06:24)
[2020-05-01 06:54] LABS: Slide Review Slide Review Perform
[2020-05-01 06:58] LABS: Absolute Segmented Neutrophil 1.6 10/cmm (1.6-7.1); Band Neutrophils Absolute 2.4 10^3/cmm (0.0-1.2); Eosinophils 1 %; Lymphocytes 19 %; Monocytes Absolute 1.2 10^3/cmm (0.1-0.6); Platelet Estimate Normal (Normal); Segmented Neutrophils 23 %; Total Cells Counted 100 (0-100)
--- NOTE | 2020-05-01 07:17 | PM.PN ---
Subjective Subjective: Interval history: Had a good nights sleep and feels better this morning. For dialysis this morning. Keen to go home Some LE edema but no SOB/ENRIQUE. No uremic Sx. Medications: Reviewed: Yes Medication Review Details: Current Medications Acetaminophen (Tylenol) 650 mg PO Q6H PRN PRN Reason: MILD PAIN Last Admin: 04/22/20 02:44 Dose: 650 mg Documented by: Albuterol/Ipratropium (Duoneb) 3 ml INHALATION Q6H PRN PRN Reason: SHORTNESS OF BREATH Last Admin: 04/25/20 09:53 Dose: 3 ml Documented by: Amiodarone HCl (Cordarone) 200 mg PO DAILY [facility] Last Admin: 04/30/20 14:23 Dose: 200 mg Documented by: Benzonatate (Tessalon Pearls) 100 mg PO TID [facility] Last Admin: 04/30/20 14:30 Dose: Not Given Documented by: Denture Adhesive (Fixodent) 1 applic DENTAL PRN PRN PRN Reason: denture adhesive Last Admin: 04/14/20 13:27 Dose: 1 applic Documented by: Ferrous Gluconate (Ferrous Gluconate) 324 mg PO BIDWM [facility] Last Admin: 04/30/20 14:23 Dose: 324 mg Documented by: Filgrastim (Neupogen) 480 mcg SUBCUT Q24H [facility] Last Admin: 04/30/20 16:12 Dose: 480 mcg Documented by: Furosemide (Lasix) 40 mg IVP DAILY [facility] Levofloxacin/Dextrose (Levaquin-D5w) 500 mg in 100 mls @ 100 mls/hr IV Q48H [facility]; Protocol Last Admin: 04/30/20 14:31 Dose: 100 mls/hr Documented by: Loperamide HCl (Imodium Capsule) 2 mg PO QID PRN PRN Reason: DIARRHEA Last Admin: 04/30/20 12:01 Dose: 2 mg Documented by: Metoprolol Tartrate (Lopressor) 75 mg PO BID [facility] Last Admin: 04/30/20 12:51 Dose: Not Given Documented by: Morphine Sulfate (Morphine) 1 mg IVP Q6H PRN PRN Reason: SEVERE PAIN Last Admin: 04/23/20 11:09 Dose: 1 mg Documented by: Neomycin/Polymyxin/Bacitracin (Neosporin Oint Tube) 1 applic TOPICAL BID [facility] Last Admin: 04/30/20 14:24 Dose: 1 applic Documented by: Nystatin (Nystatin) 500,000 unit PO QID [facility] Last Admin: 04/30/20 16:11 Dose: Not Given Documented by: Ondansetron HCl (Zofran) 4 mg IVP Q6H PRN PRN Reason: NAUSEA AND VOMITING Last Admin: 04/29/20 23:16 Dose: 4 mg Documented by: Oxycodone/Acetaminophen (Percocet 10-325 Mg) 1 tab PO Q4H PRN PRN Reason: SEVERE PAIN Oxycodone/Acetaminophen (Percocet 5-325 Mg) 1 tab PO Q4H PRN PRN Reason: MODERATE PAIN Last Admin: 04/29/20 03:51 Dose: 1 tab Documented by: Pantoprazole Sodium (Protonix) 40 mg PO DAILY [facility] Sevelamer Carbonate (Renvela) 2,400 mg PO TIDWM [facility] Last Admin: 04/30/20 14:23 Dose: 2,400 mg Documented by: Sodium Chloride (Salt Tab) 1 gm PO BID [facility] Sucralfate (Carafate Oral Liq) 1 gm PO AC&BEDTIME [facility] Last Admin: 04/30/20 16:12 Dose: 1 gm Documented by: Vitals/I&O/Wt Last Vital Signs Temp 97.7 F 05/01/20 03:44 Pulse 80 05/01/20 03:44 Resp 18 05/01/20 03:53 BP 102/61 05/01/20 03:44 Pulse Ox 91 05/01/20 03:44 04/30/20 05/01/20 05/01/20 22:59 06:59 14:59 Intake Total 702 / 897 300 / 1197 Output Total 0 / 0 Balance 702 / 897 300 / 1197 Physical Exam Narrative: EXAM NARRATIVE: Constitutional: Awake, conversant, looks tired HEENT: Wet mucosa, no jvp, non icteric Lungs: Bilaterally clear without discernible wheeze or rales in all lung zones CVS: irregular Abdo: Soft, BS ok Ext 4: 1+ edema, peripheral perfusion with no cyanosis Neurological: Grossly non-focal Urinary Catheter Management^: Torres: Cath Placed During This Visit: yes, but has since been removed by the nurse Reason for Continuing Indwelling Catheter: Acute Urinary Retention or Obstruction Urinary Catheter Date of Insertion: 04/22/20 Urinary Catheter Time of Insertion: 08:47 Date Urinary Catheter Removed: 04/21/20 Time Urinary Catheter Discontinued: 17:30 Data : 05/01/20 05:04 04/30/20 05:13 Micro: Microbiology 04/26/20 09:08 Anaerobic Culture - Preliminary Arm - #2 A&P Additional A&P Information 1. DIONISIO - ATN in the setting of contrast and Vanco tubular toxicity - Dialysis today. - Labs pending for today - close monitoring for recovery as outpatient - am renal panel - avoid the usuals 2. Lytes - with minor non critical aberration including mild SIADH - monitor for now - dialysis will help 3. New diagnosis of Small Cell lung cancer - s/p Etoposide and Cisplatin dosing per Oncology; second dosing coming up soon 4. Post obstructive pneumonia - Levaquin - cultures noted; unrevealing - s/p chest tube 5. Hyperphos - on binder therapy 6. Anemia - s/p 2 units few days ago - anticoagulation held - EGD/ Colonoscopy: found to have non bleeding PUD and 2 polyps which were snared 7. 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
[2020-05-01] MEDS: sevelamer 800 mg Tablet 2400 MG PO ×2 (08:16→13:01)
[2020-05-01] MEDS: nystatin 100,000 unit/mL UDC 5 mL 500000 UNIT PO ×2 (08:16→13:00)
[2020-05-01] MEDS: FUROsemide 10 mg/mL SDV 4mL 40 MG IVP (08:17)
[2020-05-01] MEDS: ferrous gluconate 324 mg Tablet PO (08:17)
[2020-05-01] MEDS: pantoprazole DR 40 mg Tablet PO (08:17)
[2020-05-01] MEDS: benzonatate 100 mg Capsule PO ×2 (08:17→15:28)
[2020-05-01] MEDS: amiodarone 200 mg Tablet PO (08:17)
[2020-05-01] MEDS: sodium chloride 1 gm Tablet PO (08:17)
[2020-05-01] MEDS: metoprolol tartrate 50 mg Tablet 75 MG PO (08:17)
[2020-05-01] MEDS: neomycin-poly-bacitracin oint 28 gm 1 APPLIC TOPICAL (08:18)
--- NOTE | 2020-05-01 08:22 | ANE.PACU2 ---
Inpatient post-anesthesia follow up: Airway intact: Yes Vital signs: Temperature 97.7 F Pulse Rate [Monito r] 100 Pulse Rate 76 Respiratory Rate 16 Blood Pressure [Ri ght Arm] 156/102 Blood Pressure 102/61 Pulse Oximetry 94 Oxygen Delivery Me thod [Rate & Nasal Cannula Delivery Changed T o] Oxygen Delivery Me thod [ Room Air Current Rate & Del henna] Oxygen Delivery Me thod Nasal Cannula Oxygen Flow Rate [ Rate & 1 Delivery Changed T o] Oxygen Flow Rate 1 Fraction of Inspir ed Oxygen 40 Hydration adequate: Yes Nausea and vomiting: No Pain level: 1 Mental status: Baseline
--- NOTE | 2020-05-01 10:32 | PM.DCS ---
Discharge Providers Date of Admission: 04/08/20 20:17 Date of Discharge: May 01, 2020 Attending Provider at Admission: Jonathan Calderon MD Attending Provider at Discharge: Joni Oneill MD Consults: Telemetry nephrology. Oncology: Dr. Nguyen Surgery: Dr. Caal Cardiology: Dr. Carrillo Pulmonology: Dr. Sanchez Primary Care Provider: Mariam Mckeon Diagnoses at Discharge Discharge Diagnosis (1) New onset atrial fibrillation: Status: Acute (2) Acute diastolic heart failure: Status: Acute (3) Pleural effusion: Status: Acute (4) Metastatic cancer: Status: Acute Qualifiers: Area of secondary neoplastic involvement: lymph node Lymph node location: intrathoracic region Qualified Code(s): C77.1 - Secondary and unspecified malignant neoplasm of intrathoracic lymph nodes (5) Obstructive pneumonia: Status: Acute (6) Acute kidney injury: Status: Acute Reason for Visit Reason for Visit: PNEUMONIA Hospital Course Discharge Summary: Pamela Jack is a 64 year old female who came in with chief complaint of worsening shortness of breath. Patient is stating her symptoms started 3 to 4 weeks ago with sinus & chest congestion, she never noticed any fever, myalgias, dysuria, diarrhea or vomiting, her symptoms gradually got worse, she has visited primary care clinic. She had previously been in good health. She became ill sometime around the beginning of March with sinus infection and cough. She then developed increasing shortness of breath and weakness. Her symptoms continue to worsen despite outpatient antibiotic therapy. She had some diarrhea associated with the antibiotic therapy, and she also was drinking excessive amount of water. She was seen in the emergency room on 04/08/2020. Her white blood cell count was elevated at 19,800 with hemoglobin normal at 13.5 g and platelet count normal at 325,000. Her comprehensive metabolic profile showed significant hyponatremia, serum sodium 121 mmol/L, with BUN 8 and creatinine 0.3 mg/dL. Her liver enzymes were moderately elevated with normal bilirubin at 0.5 mg/dL. Chest x-ray showed bibasilar airspace disease with right pleural effusion. She was admitted with a presumptive diagnosis of pneumonia and dilutional hyponatremia. She also had suspected congestive heart failure. She began empiric antibiotic coverage with Zosyn and vancomycin. Echocardiogram the following day showed normal left ventricular ejection fraction at 60%. Her CT chest, abdomen, and pelvis on 04/10/2020 showed large right hilar and suprahilar mass measuring 4.1 x 4.5 x 6.1 cm. There was compression of the distal right main pulmonary artery and partial occlusion of the right upper lobe and right middle lobe pulmonary arteries. There was mass extending into the anterior mediastinum measuring 3.2 x 3.3 cm. Satellite nodules were noted along the anterior chest wall and mediastinum and there were additional satellite nodules in the right middle lobe and extending along the fissure. There was subcarinal and bilateral hilar lymphadenopathy. There was evidence of post obstructive pneumonia in the right middle and right lower lobes with compression of the right distal mainstem bronchus. There was moderate right pleural effusion. There were numerous metastatic lesions noted in the left lower lobe and additional smaller metastatic lesions in the left upper lobe. Also noted were numerous nodular metastatic lesions along the right cardiophrenic angle, the largest measuring 2.0 cm. Innumerable peripheral enhancing masslike lesions were noted throughout both hepatic lobes compatible with metastatic disease. Multiple metastatic peritoneal implants were noted in the upper and mid abdomen. The adrenal glands appeared normal. There were no definite metastatic lesions noted in the thoracic and lumbar spine. On 04/11/2020 she underwent right thoracentesis and ultrasound directed biopsy of a metastatic liver lesion. Pathology results are still pending. At that time, there was an abrupt increase in her serum creatinine to 2.2 mg/dL. By 04/13/2020 it had further increased to 4.3 mg/dL, and today it is down slightly at 4.1 mg/dL. She is now being followed by nephrology. During that time she also developed atrial fibrillation, which converted with medication. She had a long hospitalization. She was diagnosed with having malignant adenocarcinoma of the lung, she was started on chemotherapy with etoposide and carboplatin with 1st cycle given over 3 days during this hospitalization. She was also treated with broad-spectrum antibiotics with for postobstructive pneumonia. Her cultures remain negative and after completion of the course antibiotics were stopped. During hospitalization patient developed DIONISIO because of ATN most likely secondary to antibiotics. Nephrology was consulted. Patient developed fluid overload and she was started on hemodialysis for better management of fluid status and renal functions. She also developed paroxysmal A. fib during hospitalization for which cardiology was consulted and she was transitioned to oral amiodarone after completion of 24 hours amiodarone drip. Anticoagulation with Eliquis and she tolerated well. During hospitalization she also developed left forearm abscess measuring 4 x 4 cm at IV line site. Surgery was consulted and she underwent incision and drainage of the abscess, removal of temporary dialysis catheter from right IJ and placement of tunneled AshSplit hemodialysis catheter and right IJ on April 26. She tolerated the procedure well. She was transitioned over to hemodialysis with tunneled catheter. Will allow her dialysis on the day of discharge. 1 week post chemotherapy patient developed neutropenia which was treated with filgrastim. Even after a long hospitalization because of multiple complication during the hospitalization patient did well and remained hemodynamically stable on the day of discharge. She has a dialysis chair at [facility] now with cycles on Wednesday, Wednesday, Wednesday. She has been referred to oncology for further care. She supposed to be on levofloxacin for 5 more days to finish the course for abscess. Physical Exam Narrative: EXAM NARRATIVE: General: No acute distress, AO x3 HEENT: PERRLA, pupils bilaterally equal and reactive Chest:Bilateral occasional rhonchi present, decreased air entry right lower zone, equal good air entry bilaterally CVS: S1-S2 regular, no murmurs, no tachycardia, no gallops, no rubs Abdomen: Soft, nontender, no organomegaly, bowel sounds present Neuro: No focal deficits, no facial deformity, AO x3, power 5/5 in all limbs Urinary Catheter Management^: Torres: Cath Placed During This Visit: yes, but has since been removed by the nurse Reason for Continuing Indwelling Catheter: Acute Urinary Retention or Obstruction Urinary Catheter Date of Insertion: 04/22/20 Urinary Catheter Time of Insertion: 08:47 Date Urinary Catheter Removed: 04/21/20 Time Urinary Catheter Discontinued: 17:30 Discharge Data Data Completed and Pending: Completed Studies During Hospitalization Category Date Time Status CT chest abd pel w con* Routine Cat Scan 04/10/20 14:[address] chest wo con 7 1250 Routine Cat Scan 04/20/20 09:38 Completed XR chest 1V sigifredo ble [id number] Routine Exams 04/16/20 10:27 Completed XR chest 1V sigifredo ble 98300 Routine Exams 04/24/20 06:00 Completed XR chest 1V sigifredo ble 21686 Stat Exams 04/08/20 16:50 Completed XR chest 1V sigifredo ble [id number] Stat Exams 04/14/20 10:47 Completed XR chest 1V sigifredo ble 78014 Stat Exams 04/15/20 13:58 Completed XR chest 1V sigifredo ble 26160 Stat Exams 04/16/20 17:34 Completed XR chest 1V sigifredo ble 30003 Stat Exams 04/21/20 11:34 Completed XR chest 1V sigifredo ble 34316 Stat Exams 04/23/20 06:32 Completed Pathology: Surgic al [PTH] Routine Pth 04/11/20 15:13 Completed CV echo complete* [id number] Routine Ultrasound 04/09/20 21:53 [place] [address] Routin e Ultrasound 04/10/20 06:00 Completed US abdomen limite d 71931 Routine Ultrasound 04/10/20 06:00 Completed US soft tissue/ex tremity 02734 Rout ine Ultrasound 04/25/20 08:40 Completed US venous duplex upper extremity LT [CV venous duplex Ultrasound 04/25/20 08:41 [place] [id number]] Rout ine Pending at discharge Category Date Time Status ABGPH [Aterial Bl ood Gas pH] Routin e Lab 04/21/20 11:10 Results Anaerobic Culture Routine Lab 04/26/20 09:08 Results Fungal Culture no t HR/SK/BL Routine Lab 04/21/20 11:20 Results Mycobacteria, Cul ture w/Fluor Routi ne Lab 04/11/20 13:10 Results Mycobacteria, Cul ture w/Fluor Routi ne Lab 04/21/20 11:20 Results Sputum Culture an d Gram Stain Lab 04/19/20 04:00 Uncollected Urine Random Lyte s Stat Lab 04/29/20 14:59 Uncollected Cytology [PTH] Ro utine Pth 04/11/20 13:55 Ordered Pathology: Surgic al [PTH] Routine Pth 04/30/20 10:41 Received Labs from last 24 hours 05/01/20 05:04 WBC 7.1 RBC 2.98 L Hgb 9.0 L Hct 28.5 L MCV 95.6 MCH 30.2 MCHC 31.6 RDW 13.1 Plt Count 257 MPV 10.3 Lymph % (Auto) Not Reportable [place] % (Auto) Not Reportable Lymph # (Auto) Not Reportable [place] # (Auto) Not Reportable Total Counted 100 Atypical Lymphs % 3.0 Absolute Neutrophi ls 4.0 Segmented Neutroph ils 23 Abs Segm Neuts (Ma n) 1.6 Band Neutrophils 34.0 Abs Band Neuts (Ma n) 2.4 H Lymphocytes (Manua l) 19 Monocytes (Manual) 17.0 Absolute Monocytes 1.2 H Eosinophils (Manua l) 1 Absolute Eosinophi ls 0.0 Basophils (Manual) 0.0 Absolute Basophils 0.0 Metamyelocytes 2.0 Myelocytes 1.0 Platelet Estimate Normal Vitals: Last Vital Signs Temp 97.4 F L 05/01/20 08:26 Pulse 75 05/01/20 08:26 Resp 18 05/01/20 08:26 BP 126/76 05/01/20 08:26 Pulse Ox 93 05/01/20 08:26 Discharge Plan Discharge Patient Disposition: Home Condition: Stable Prescriptions: New nystatin 100,000 unit/mL Suspension 500,000 unit PO QID Qty: 30 RF: 0 Triple Antibiotic 3.5mg-400 unit- 5,000 unit/gram Ointment 1 applic topical BID Qty: 3 RF: 0 Pacerone 200 mg Tablet 200 mg PO DAILY Qty: 30 RF: 0 sucralfate 100 mg/mL Suspension 1 g PO AC&BEDTIME Qty: 60 RF: 0 benzonatate 100 mg Capsule 100 mg PO TID PRN (Reason: cough) Qty: 15 RF: 0 pantoprazole 40 mg Tablet,Delayed Release (Dr/Ec) 40 mg PO DAILY Qty: 30 RF: 0 metoprolol tartrate 50 mg Tablet 75 mg PO BID Qty: 90 RF: 0 sevelamer carbonate 800 mg Tablet 2,400 mg PO TIDWM Qty: 90 RF: 0 ferrous gluconate 324 mg (37.5 mg iron) Tablet 324 mg PO BIDWM Qty: 60 RF: 0 Eliquis 5 mg tablet 5 mg PO BID Qty: 30 RF: 0 levofloxacin 500 mg tablet 500 mg PO DAILY 5 Days Qty: 5 RF: 0 Continued ipratropium-albuterol 0.5 mg-3 mg(2.5 mg base)/3 mL Solution For Nebulization 3 ml INHALATION QID RF: 0 Discontinued prednisone 10 mg Tablet See Rx Instructions .ROUTE .COMPLEX RF: 0 doxycycline hyclate 100 mg Capsule 100 mg PO BID RF: 0 albuterol sulfate 90 mcg/actuation Hfa Aerosol Inhaler 2 puff INHALATION 6XD PRN (Reason: Shortness Of Breath) RF: 0 Discharge Orders: Discharge Order (Routine); Ordered 05/01/20 Ordered By: Joni Oneill Other Ambulatory Orders: DME: Oxygen (Order) Location: None Selected Ordered By: Joni Oneill DME: Walker (Order) Location: None Selected Ordered By: Joni Oneill Referrals: [facility] ([facility]) [Other] - 05/03/20 1:00 pm (This is the facility that will be providing your outpatient dialysis. If you have any questions, please call them at the phone number provided. You will have dialysis on Mondays, Wednesdays, and Fridays at 1:00 PM.) [facility] [Outside] Aldair Sanchez MD [Physician] - 05/14/20 11:15 am (Please follow up with Dr Laura MARTINEZ in 2 weeks on WednesdayMay 14 at 11:15) Александр Nguyen MD [Hospitalist] - 4-7 days (Please follow up with Dr Nguyen on WednesdayMay 13 at 1:30 PM) Discharge Diet: Cardiac and Low Salt Discharge Activity: Resume usual activity and Increase activity as tolerated Patient Instructions: Atrial Fibrillation, Iron Supplements (By mouth), Metoprolol (By mouth), Sucralfate (By mouth), Nystatin (On the skin), Amiodarone (By mouth), Sevelamer (By mouth), Pantoprazole (By mouth), Apixaban (By mouth), GI Bleeding Activity Restrictions/Additional Instructions: Dialysis to be done on Wednesday, Wednesday, Wednesday. Dialysis at [facility]. Please follow-up with Dr. Nguyen within next 4 to 7 days. Please follow-up with Dr. Sanchez On May 14 at the set appointment date. If you develop any difficulty in breathing, fever over 101 please come to the ER. Next cycle of chemotherapy to be decided by Dr. Nguyen. Discharge Date/Time: 05/01/20 17:17 Discharge Attestations Time Spent in Discharge Care*: greater than 30 min Specific Discharge Activities: Specific discharge activities: educating patient, discussing with pcp/other providers, discussing with protective services case worker/social workers/dc planners, documenting/other paperwork and evaluating patient/reviewing data Status at Discharge: Cognitive status at discharge: cognitively intact, Behavioral status at discharge: cooperative, Functional status at discharge: uses cane/walker Overall status at discharge: patient has a new baseline Quality Metrics Clinical Quality Measures During this hospital stay, did patient experience: VTE Contraindication to Overlap Therapy: Overlap therapy prescribed VTE Discharge Education: Education about anticoagulant therapy/Care Notes given Coding Level of Care Code Acute Supervisor Photocomposition for g Fwd Diagnoses New onset atrial fibrillation I48.91 Acute diastolic heart failure I50.31 Pleural effusion J90 Metastatic cancer C77.1 Area of secondary neoplastic involvement: lymph node Lymph node location: intrathoracic region Obstructive pneumonia J18.9 Acute kidney injury N17.9
--- NOTE | 2020-05-01 17:55 | PC.NURSE ---
patient given discharge instructions and verbalized understanding of instructions. patient taken to private vehicle via wheelchair by copy writer. patient's home oxygen delivered to patient.
== END 2020-05-01 17:17 | disposition home or self-care (01) | DRG 853 ==
LOC: ER 20:38 → MEDSURG 21:13 → CSU 04-13 01:30 → ICU 04-15 14:51 → CSU 04-22 15:35 → MEDSURG 04-28 16:08
PROVIDERS: Internal Medicine; Internal Medicine Critical Care Medicine; Internal Medicine Nephrology; Internal Medicine Pulmonary Disease; Student in an Organized Health Care Education/Training Program; Surgery; Admitting Provider Internal Medicine; Emergency Provider Emergency Medicine; PCP Nurse Practitioner Family; Visit Provider Student in an Organized Health Care Education/Training Program
PROC: 0J9H0ZZ Drainage of Left Lower Arm Subcutaneous Tissue and Fascia, Open Approach (ICD-10-PCS; principal; 2020-04-26 07:55)
PROC: 0J9H0ZZ Drainage of Left Lower Arm Subcutaneous Tissue and Fascia, Open Approach (ICD-10-PCS; 2020-04-26 07:55)
PROC: 0DJ08ZZ Inspection of Upper Intestinal Tract, Via Natural or Artificial Opening Endoscopic (ICD-10-PCS; CPT 43235; principal; 2020-04-30 09:30)
PROC: 0DJD8ZZ Inspection of Lower Intestinal Tract, Via Natural or Artificial Opening Endoscopic (ICD-10-PCS; CPT 45378; 2020-04-30 09:30)
DX: A41.9 Sepsis, unspecified organism (principal); J18.9 Pneumonia, unspecified organism; I50.31 Acute diastolic (congestive) heart failure; N17.0 Acute kidney failure with tubular necrosis; J96.01 Acute respiratory failure with hypoxia; C77.1 Secondary and unspecified malignant neoplasm of intrathoracic lymph nodes; K92.2 Gastrointestinal hemorrhage, unspecified; D61.818 Other pancytopenia; J91.0 Malignant pleural effusion; J93.9 Pneumothorax, unspecified; K52.1 Toxic gastroenteritis and colitis; L02.413 Cutaneous abscess of right upper limb; E22.2 Syndrome of inappropriate secretion of antidiuretic hormone; I82.C11 Acute embolism and thrombosis of right internal jugular vein; I82.611 Acute embolism and thrombosis of superficial veins of right upper extremity; C34.01 Malignant neoplasm of right main bronchus; R65.20 Severe sepsis without septic shock; R59.1 Generalized enlarged lymph nodes; Z51.11 Encounter for antineoplastic chemotherapy; I48.0 Paroxysmal atrial fibrillation; E88.09 Other disorders of plasma-protein metabolism, not elsewhere classified; D70.9 Neutropenia, unspecified; T50.905A Adverse effect of unspecified drugs, medicaments and biological substances, initial encounter; Y92.230 Patient room in hospital as the place of occurrence of the external cause; R00.1 Bradycardia, unspecified; K44.9 Diaphragmatic hernia without obstruction or gangrene; R63.1 Polydipsia; F17.210 Nicotine dependence, cigarettes, uncomplicated; D69.6 Thrombocytopenia, unspecified; D63.0 Anemia in neoplastic disease; Z20.828 Contact with and (suspected) exposure to other viral communicable diseases
CPT/HCPCS: 12345; 36415; 36416; 36430; 36569; 36592; 36600; 43239; 45380; 51702; 71045; 71250; 71260; 74177; 76000; 76705; 76882; 77001; 80048; 80053; 80069; 80202; 80500; 81001; 82042; 82150; 82274; 82465; 82550; 82570; 82803; 82945; 82962; 83540; 83550; 83605; 83615; 83630; 83735; 83880; 83930; 83935; 83986; 84075; 84100; 84145; 84156; 84157; 84295; 84300; 84315; 84443; 84478; 84484; 84550; 84560; 85007; 85025; 85045; 85049; 85378; 85610; 85730; 86140; 86403; 86850; 86900; 86920; 87015; 87040; 87070; 87075; 87102; 87116; 87205; 87206; 87340; 87426; 87449; 87493; 87506; 87641; 87801; 87804; 88305; 88307; 89050; 90935; 93005; 93306; 93970; 93971; 94640; 94660; 94762; 96367; 96372; 96375; 96413; 96417; 97110; 97116; 97161; 97530; 99284; J0282; J0456; J0696; J1100; J1160; J1442; J1644; J1650; J1940; J1956; J2020; J2185; J2270; J2405; J2469; J2543; J2704; J2783; J2997; J3010; J3370; J3490; J7030; J7040; J7050; J7060; J7512; J9045; J9181; P9016; Q3014; Q9967

== ENCOUNTER 2020-05-13 08:21 | Outpatient (CLI) | payer MEDICAID, SELFPAY ==
--- NOTE | 2020-05-20 07:16 | ONC FU_ITS ---
Dr. Nguyen Patient Follow-Up Note Patient: Pamela Jack Unit #: [id number]: 1955 Dicatated By: Александр Nguyen M.D.Date of Visit:May 13, 2020 Onc Med Follow-up/Prog Note Chief Complaint: Lung cancer. 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 On 04/08/2020 she was admitted to the hospital after presenting to the emergency room with shortness of breath and weakness. CT scan to the chest, abdomen, and pelvis showed a large right hilar and suprahilar mass measuring 4.1 x 4.5 x 6.1 cm. There was compression of the distal right main pulmonary artery and partial occlusion of the right upper lobe and right middle lobe pulmonary arteries. There were adjacent satellite nodules with soft tissue thickening along the anterior chest wall and mediastinum. The supra hilar mass was noted to extend into the anterior mediastinum measuring 3.2 x 3.3 cm. There was bilateral hilar and subcarinal lymphadenopathy. There was evidence of postobstructive pneumonia in the right middle lobe and right lower lobe with compression of the distal right mainstem bronchus. There was moderate right pleural effusion. Numerous metastatic nodules were noted in the left lower lobe, the largest measuring 2 cm, and there were additional smaller metastatic lesions in the left upper lobe. There were innumerable enhancing masslike lesions throughout both hepatic lobes compatible with metastatic disease. The adrenal glands appeared normal. There are multiple subcentimeter metastatic peritoneal implants in the upper and mid abdomen. On 04/11/2020 she underwent ultrasound directed FNA biopsy of the liver. 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 The Ki-67 was strongly positive at 100%. Her clinical course was complicated by acute renal failure, presumed to be due to acute tubular necrosis, though a specific underlying cause for that was never really determined. She did require hemodialysis. During that time she also developed atrial fibrillation and acute diastolic congestive heart failure. The atrial fibrillation converted with medication. In the setting of metastatic high-grade neuroendocrine carcinoma, she began a trial of chemotherapy with carboplatin/etoposide. The dosages were adjusted for the renal failure/dialysis. She tolerated it without acute toxicity. Her further hospital course was complicated by left forearm abscess, for which she underwent an I & D procedure. She was discharged from the hospital on 05/01/2020. She has no significant past medical or past surgical history. She has a history of smoking 1 1/2 packs of cigarettes daily for 45 years. She has had significant alcohol use, but she had quit drinking 3-4 months prior to the hospitalization. She is seen for a followup visit. She has not been feeling too good. She is generally weak and she has very limited activity, but she is trying to get around more. She is doing some very light work at home. Her main complaint, though, is that she is having more difficulty breathing, particularly when she is lying down, and she thinks she does need to have fluid drained again. Her ECOG score is 2. Appetite is somewhat variable, but generally not good. She has not had fever or night sweats. She has cough productive of yellowish sputum. She has been having pain in her lower right lateral chest area. She has occasional nausea. She says her bowel function has been erratic. Bladder function has been okay. She does have urine output. She is still on dialysis 3 days a week. She has no significant joint or bone pain. She does not complain of headache. Lately she has had some dizziness. She has no focal neurologic symptoms. Medications: Albuterol Sulfate 2 Puff(s) (of 108 (90 base) mcg/act) Aerosol Powder, Breath Activated Inhalation q 4 to 6 hours PRN, Amiodarone HCl 1 (200 mg) Tablet Oral daily, Apixaban 1 (5 mg) Tablet Oral b.i.d., Xqgvvdnxrr-Gstevvye-Lsufswhud (400-5-5000 ) Ointment Topical b.i.d., Benzonatate 1 (100 mg) Capsule Oral t.i.d. PRN, Ferrous Gluconate 1 (324 (37.5 fe) mg) Tablet Oral pc (bid), Ipratropium-Albuterol 3 mL (of 0.5-2.5 (3) mg/3mL) Solution Inhalation four times a day, Metoprolol Tartrate 1 (75 mg) Tablet Oral b.i.d., Nystatin 5 mL (of 285923 Units) Capsule Oral four times a day, Pantoprazole Sodium 1 (40 mg) Tablet, enteric coated Oral daily, Sucralfate 10 mL (of 1 g/10mL) Suspension Oral ac (tid) & at bedtime Allergies: Linezolid Review of Systems: Constitutional - Her energy is low. She is able to get up and around using a walker and she is able to do some light housework. Her appetite is poor and her weight is down 17 pounds from last visit. No fever, night sweats, or hot flashes. ECOG score is 2, ENMT - She has a little bit of sinus drainage. No mouth sores. No sore throat or difficulty swallowing, Hematologic/Lymphatic - No abnormal bruising or bleeding, Respiratory - She gets short of breath with any activity. She has a productive cough. She has some pain in her right lower chest laterally. No hemoptysis, Cardiovascular - No angina pain. No palpitations, Gastrointestinal - She has occasional nausea. No vomiting. No heartburn or acid reflux. Her bowel function has been erratic. No blood in the stool or black stools, Genitourinary (F) - No dysuria or hematuria. No urinary frequency. No urgency or incontinence, Musculoskeletal - No joint or bone pain, Integumentary - No skin complications, Neurologic - No headache. She has had some lightheadedness. No numbness or tingling. No other focal neurologic symptoms, Psychiatric - No anxiety or depression. She does not sleep well. Vital Signs: Performed on May 13, 2020 08:36 Height - 65.00 in Weight - 193.8 lbs (LOW) BSA - 1.95 sq.m BMI - 32.25 (HIGH) Temperature - 97.4 F (LOW) Pulse - 74 /min Respiration - 22 /min BP - 104/58 mm(hg) O2 Sat - 95 % (LOW) Pain - 0 Fatigue - 9 Physical Examination: Constitutional - She appears generally weak, Eyes - Sclerae nonicteric. Conjunctivae clear, ENMT - No lesions noted in the oral cavity, Hematologic/Lymphatic - No cervical, clavicular, or axillary adenopathy, Respiratory - Lungs sound clear but with diminished air movement on the right, Cardiovascular - Heart rhythm is regular. There is no murmur, gallop, or rub noted, Abdomen - Mildly distended. There is tenderness in the right upper quadrant. Liver does not appear overtly enlarged. Spleen is not palpable. There is no abdominal mass or ascites noted and there is no inguinal adenopathy, Extremities - There is 2+ lower extremity edema, Neurologic - No focal neurologic deficits noted. Lab/Imaging: Her laboratory studies from 05/01/2020 included CBC CBC showing hemoglobin 9.0 g, white blood cell count 7100, and platelet count 257,000. Impression: 1. 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 The tumor appeared to be high-grade, but it was described as a large cell neoplasm. 2. Her clinical course was complicated by acute renal failure, presumably due to acute tubular necrosis, requiring hemodialysis. 3. She also developed atrial fibrillation and acute diastolic congestive heart failure. 4. She began a trial of chemotherapy with carboplatin/etoposide on 04/17/2020 with the chemotherapy doses adjusted for the renal failure/dialysis. 5. Her further hospital course was complicated by left forearm abscess, requiring I&D on 04/26/2020. She tolerated the chemotherapy without acute toxicity. However, by day 12 of her chemotherapy cycle she had become severely neutropenic. There was also significant drop in her hemoglobin level to 7 g. She was on antibiotic coverage and she was treated with Neupogen, and she recovered uneventfully. She did require PRBC transfusion. Her EGD on 04/30/2020 showed a 1.5 cm duodenal ulcer which appeared to be healing and not actively bleeding. Colonoscopy findings are limited to a 3 mm sessile polyp in the rectum. At this point her blood counts are adequate but she has significant weakness/fatigue and she appears to have symptomatic pleural effusion. Plan: I have contacted Dr. Sanchez and arrangements will be made for placement of a pleural catheter in the right chest. She also will be referred to surgery for placement of Port-A-Cath venous access device, as she has very poor peripheral venous access. I will plan to proceed with a second cycle of chemotherapy soon as the Port-A-Cath is in place. In the meantime, she will continue her hemodialysis. Signed By: Александр Nguyen M.D. <<Signature on File>>
== END 2020-05-13 08:22 | disposition home or self-care (01) ==
LOC: ONCMED 08:32
PROVIDERS: PCP Nurse Practitioner Family; Visit Provider Internal Medicine Medical Oncology
DX: C7A.1 Malignant poorly differentiated neuroendocrine tumors (principal); N17.9 Acute kidney failure, unspecified; K26.9 Duodenal ulcer, unspecified as acute or chronic, without hemorrhage or perforation; R53.1 Weakness; R53.83 Other fatigue; J90 Pleural effusion, not elsewhere classified; F17.211 Nicotine dependence, cigarettes, in remission; Z99.2 Dependence on renal dialysis
CPT/HCPCS: 99215

== ENCOUNTER → 2020-05-14 11:34 | Outpatient (BNVA) | payer MEDICAID, SELFPAY | PROVIDERS: PCP Nurse Practitioner Family; Visit Provider Surgery | DX: Z11.59 Encounter for screening for other viral diseases (principal); C34.90 Malignant neoplasm of unspecified part of unspecified bronchus or lung | CPT/HCPCS: 87635 ==

== ENCOUNTER 2020-05-16 05:35 | Day surgery (SDC) | payer MEDICAID, SELFPAY ==
[2020-05-15 09:08] VITALS: BMI 30.7
--- NOTE | 2020-05-16 | SCC_ITS ---
Procedure Done: Left internal jugular vein PowerPort placement under ultrasound and fluoroscopic guidance with interpretation was done by me through the whole entire procedure. 15.9 seconds of fluoroscopic guidance, for a cumulative dose of 2.29 mGy, was provided to Dr. Shelton by the radiology department. C-arm images of the chest were saved for the patient's permanent record. [facility]
[2020-05-16 06:20] VITALS: BP 97/52; PULSE 68; RESP 16; TEMP 36.2; O2SAT 97
--- NOTE | 2020-05-16 06:33 | SC_ITS ---
WS: [id number] C-ARM RADIOGRAPHS CHEST; 3 IMAGES HISTORY: port placement COMPARISON: None available. Intraoperative imaging during Port-A-Cath placement through the LEFT subclavian vein. SC/C-arm FL for CVA 91615 IMPRESSION: Intraoperative imaging during Port-A-Cath placement.
--- NOTE | 2020-05-16 06:35 | W.PM.OPSUD ---
Surgery/Procedure H&P Update DATE OF PROCEDURE: May 16, 2020 DATE H&P PERFORMED: 05/13/20 H&P UPDATE INFORMATION: I have reviewed H&P completed within last 30 days, I have examined patient prior to procedure and No changes to prior documentation PREOP DIAGNOSIS: Lung cancer PRIMARY INDICATION FOR PROCEDURE: The same PLANNED PROCEDURE: Operation Date: 05/16/20 07:00 Proposed Procedures p Portacath Placement 08816 C34.90(Not Applicable) - Damian Shelton MD s Don Drain Placement Pleurx Catheter Insertion(Not Applicable) - Aldair Nathan DataMD alexis
--- NOTE | 2020-05-16 06:46 | P.ANESASSM_ITS ---
Pre-Anesthetic Assessment Pre-Anesthetic Assessment: Height/Weight: Height 1.68 m Weight 86.183 kg Temp Pulse Resp BP Pulse Ox 97.2 F L 68 16 97/52 97 05/16/20 06:20 05/16/20 06:20 05/16/20 06:20 05/16/20 06:20 05/16/20 06:20 Preop Diagnosis: Lung cancer Proposed Procedure: Operation Date: 05/16/20 07:00 Proposed Procedures p Portacath Placement 15759 C34.90(Not Applicable) - Damian Shelton MD s Don Drain Placement Pleurx Catheter Insertion(Not Applicable) - Aldair Sanchez MD Familial anesthetic complications: None Was Beta Mushtaq taken within 24 hours: Yes Last intake: Intake Last Liquid Date 05/15/20 Last Liquid Time 22:00 Last Solid Date 05/15/20 Last Solid Time 22:00 Social: Social History: Tobacco and No alcohol Exam: Pre-Anes Outpt Exam: alert, oriented x 3, clear to auscultation bilaterally and regular rate & rhythm Airway: Cervical ROM: WNL MP: 3 Dentition: False Pulmonary: Pulmonary: COPD Comments: Mets lung cancer, R pleural effusion, postobstructive pneumonia, on suplemental O2 CV/HEM: CV/HEM: Afib (recent onset, placed on amioadorone with last admission, hasn't yet started eliquis), CHF, DVT and HTN Comments: echo eF 60% : Comments: recent DIONISIO on dialysis Hepatic: Comments: increased transaminases GI: Comments: recent GI bleed w/ last admisison Metabolic: Comments: spontaneous tumor lysis syndrome Neuropsych: Neuropsych: None reported Anesthetic Plan: ASA status: 4 Anesthesia: MAC Risk of > 500 ml blood loss (7ml/kg in children): No PFSH Anesthesia PFSH: Medical History Abscess Acute diastolic heart failure Acute kidney injury Hyponatremia Malignant neoplasm of right main bronchus This patient presents with CT evidence of primary lung cancer at the right hilum. There is associated postobstructive pneumonia and right pleural effusion. There is associated mediastinal and bilateral hilar adenopathy and there are satellite nodules in both lungs as well as extensive metastatic involvement in the liver. She had hyponatremia at presentation, which may have just been dilutional, but the entire clinical picture is very suggestive of small cell lung cancer, in which case it may be due to paraneoplastic KATTY DH. Pathology on the liver biopsy is still pending at this time. She does have very poor performance status, and her further management will also be complicated by the acute renal injury. However, if it is small cell cancer, there will still be potential for response to chemotherapy. Metastatic lung cancer (metastasis from lung to other site) New onset atrial fibrillation Orthopnea Polydipsia Sepsis Sepsis with acute hypoxic respiratory failure Spontaneous tumor lysis syndrome Surgical History Hx of drainage of abscess (04/26/20) S/P dialysis catheter insertion (~04/26/20) Family History Mother CAD (coronary artery disease) Social History (Updated 05/14/20 @ 12:00 by Stalin Gilbert LPN) Smoking and tobacco status: current every day smoker cigarettes Packs smoked per day: 1.5 [ Other cigarette details: 1.5ppd x 45 ] Quit status (tobacco): considering quitting Second hand smoke exposure: No Smoking risk assessment/counseling performed?: Yes Alcohol intake: former Other details last alcohol use: She has a long history of alcohol use which had increased over the past 10 years up to 12 pack of beer per day. She quit 3 to 4 months ago. Caregiver/support person: Yes Lives independently: Yes Household members: family Housing: House Marital status: / Current occupational status: disabled History of recent travel: No Current gender identity: Female Data Anesthesia Cardiac Studies: No Data to Display
[2020-05-16] MEDS: sodium chloride 0.9% 1,000 ML 30 ML IV (06:50)
[2020-05-16] MEDS: lidocaine 2% INJ 20 mL INJECTION (07:22)
[2020-05-16] MEDS: heparin, porcine 1,000 unit/mL INJ 10 mL 10000 UNIT IRRIGATION (07:22)
--- NOTE | 2020-05-16 07:59 | P.OP_ITS ---
Operative Report Date of procedure: May 16, 2020 Pre-op Diagnosis: Lung cancer Post-op diagnosis: same Post-op Findings: Difficult access via left subclavian vein, ultrasound-guided access via the left internal jugular vein Procedure Done: Left internal jugular vein PowerPort placement under ultrasound and fluoroscopic guidance with interpretation was done by me through the whole entire procedure. Implants: PowerPort Surgeon: Damian Shelton Utility Systems Repairer Operator: emergency medical technician/driver Stalin Nguyen nurse Laura Anesthesia: MAC (Arlen Wagner) Estimated blood loss (mL): 5 Complications: No immediate complication Condition: stable Disposition: same day Brief History: This is a pleasant 65 years old female patient diagnosed with lung cancer requiring PowerPort for chemotherapy. . Plan of care; After thorough history physical examination and reviewing the chart, I counseled the patient for Port-A-Cath placement, indications, risks including pneumothorax and injury of major vascular structures, benefits,indications and alternatives were all discussed with the patient, patient understands and is interested to proceed. Rationale was carefully and clearly discussed with the patient.Appropriate informed consent have been reviewed and signed. Procedure: Patient was identified in the holding area and taken to the operative room and placed in supine position IV propofol was given by the anesthesia provider ,both arms were tucked,Time-out was done verifying the patient's name/date of /planned procedure and destination after the procedure, all were in agreement. SCDs confirmed to be functioning, preoperative antibiotics admi nistered per protocol, and beta nola protocol was confirmed, appropriate positioning of the patient was done by me. Medications were reviewed to assess for anticoagulant usage. Risks and benefits and prevention of central line associated blood stream infection (CLABSI) were discussed with the patient/CPOA, and a consent was obtained. Monitors were in place and monitored throughout the procedure. All necessary supplies were available prior to start. Hand hygiene was completed prior to starting. Maximum barrier technique was utilized including a sterile gown, sterile gloves with a hat and mask. Site was was prepped with [chlorhexidine] and a full body drape was placed. 5 mL of 2% lidocaine was injected into the skin with a 25 gauge needle. Prep& drape was done under the usual sterile technique, lidocaine 2% was injected at the site of the stick, started by the left subclavian vein yet blood was clotted and I decided at this point to the views my attention towards the left internal jugular vein giving the fact that the patient has right upper chest tunneled hemodialysis catheter. Left internal Juglar vein stick retrieved venous blood was obtained from the first stick under ultrasound guidance and there was no evidence of intraluminal thrombosis, interpretation was done by me through the whole entire procedure, a guidewire was then threaded and under the guidance of fluoroscopy position was confirmed to be in the IVC with my interpretation, there was no PVC changes, at that point the guidewire was secured to the drapes with a hemostat and the needle was taken out. Attention was then deviated towards creation of a pocket for the port were lidocaine 2% was injected using an 15 blade knife skin incision was created at the left upper Chest ,dissection using the Bovie to create a pocket for the PowerPort to be accommodated, hemostasis was secured, after the port being appropriately flushed it was inserted into the pocket and a tunneler was used to accommodate the catheter of the port cath to be delivered through the incision first created at the site of the stick,and then I was able to retrieve the catheter at the index site of the stick. At that point under fluoroscopy an estimated length was measured for the catheter and was cut at the designed level, followed by that a dilator with the sheath introduced onto the guidewire the dilator and the wire were retrieved and the catheter of the port was introduced via the sheath where it was peeled off and the catheter maintained to be in the SVC that was confirmed with fluoroscopy, and the fluoroscopy interpretation was done by me throughout the entire procedure. Multiple flushes of the port was done by diluted heparin and I was able to retrieve without difficulty venous blood as well as appropriate flushing was achieved. The port was kept secured in its pocket, 3-0 Vicryl deep subdermal interrupted sutures, skin was then closed by 4-0 Monocryl as subcuticular closure. The stick site was closed by 3-0 Vicryl and surgical glue was used followed by dressing. Patient tolerated the procedure well Count was correct at the end of the procedure I was present for the whole entire procedure At this point I did endorse further care of the patient to Dr. Gonzalez and Dr. Jordan for the right hemithorax [place] drain placement. Please find separate dictation
--- NOTE | 2020-05-16 08:05 | XR_ITS ---
WS: [id number] Exam: XR chest 1V portable [id number] Date/Time of Exam: 05/16/2020 8:05 AM Reason For Exam: Status post left internal jugular vein PowerPort placement Comparison 04/24/2020. Patchy infiltrates noted at the right perihilar region and possibly the left lung base suggesting pne umonia. Heart size is normal. There is atelectasis in the right lower lobe with small right basal ple ural effusion. Pulmonary vascularity is increased. A double lumen right-sided dialysis catheter appea rs to end in the lower one third of the SVC. A left subclavian port appears to end in the expected re gion of the cavoatrial junction. No pneumothorax noted. The mediastinum and bony thorax are unremarka ble. XR/XR chest 1V portable [id number] IMPRESSION: 1. Infiltrates in the right perihilar region and possibly the left lung base headley ggesting pneumonia. 2. Right lower lobe atelectasis and small right basal pleural effusion.
[2020-05-16 08:18] VITALS: BP 93/59; PULSE 73; RESP 16; TEMP 36.2; O2SAT 100
[2020-05-16 08:42] VITALS: BP 105/68; PULSE 70; RESP 16; TEMP 36.2; O2SAT 100
--- NOTE | 2020-05-16 09:30 | ANE.PACU2 ---
Inpatient post-anesthesia follow up: Airway intact: Yes Vital signs: Temperature 97.1 F Pulse Rate 70 Respiratory Rate 16 Blood Pressure 105/68 Pulse Oximetry 100 Oxygen Delivery Me thod Room Air Oxygen Flow Rate Fraction of Inspir ed Oxygen Hydration adequate: Yes Nausea and vomiting: No Pain level: 1 Mental status: Baseline
== END 2020-05-16 09:33 | disposition home or self-care (01) ==
PROVIDERS: Internal Medicine Pulmonary Disease; PCP Nurse Practitioner Family; Visit Provider Surgery
PROC: (CPT 36561; principal; 2020-05-16 07:00)
DX: C34.90 Malignant neoplasm of unspecified part of unspecified bronchus or lung (principal); J44.9 Chronic obstructive pulmonary disease, unspecified; I48.91 Unspecified atrial fibrillation; Z99.81 Dependence on supplemental oxygen; I11.0 Hypertensive heart disease with heart failure; Z86.718 Personal history of other venous thrombosis and embolism; N17.9 Acute kidney failure, unspecified; Z99.2 Dependence on renal dialysis; I50.31 Acute diastolic (congestive) heart failure; F17.210 Nicotine dependence, cigarettes, uncomplicated
CPT/HCPCS: 36561; 12345; 71045; 77001; C1788; J0690; J1644; J2250; J2704; J3010; J7030

== ENCOUNTER 2020-06-12 05:44 | Outpatient (RCR) | payer MEDICAID, SELFPAY ==
[2020-05-21 11:26] LABS: Basophils % 0.2 %; Eosinophils % 0.2 %; Hematocrit 27.4 % (37.0-47.0); Hemoglobin 8.5 g/dL (11.5-15.3); Lymphocytes # 2.3 10^3/uL (0.8-4.8); Lymphocytes % 12.6 %; Mean Corpuscular Hemoglobin 29.9 pg (28.0-34.0); Mean Corpuscular Volume 96.5 fL (81-99); Mean Platelet Volume 9.5 fL (7.4-10.4); Monocytes # 1.7 10^3/uL (0.2-0.9); Monocytes % 9.5 %; Neutrophils # 13.62 10^3/uL (1.8-7.7); Neutrophils % 74.5 %; Nucleated Red Blood Cells % 0 %; Platelet Count 423 10^3/cmm (130-400); Red Blood Count 2.84 10^6/uL (4.1-5.3); Red Cell Distribution Width 14.8 % (12.1-15.1); White Blood Count 18.3 10^3/uL (4.0-10.0)
[2020-05-21 11:47] LABS: Alanine Aminotransferase 21 U/L (0-33); Albumin Level 2.9 g/dL (3.5-5.2); Alkaline Phosphatase 472 IU/L (35-105); Anion Gap 15.5 (5-19); Aspartate Amino Transferase 27 U/L (0-32); Blood Urea Nitrogen 16 mg/dL (8-23); Calcium 8.8 mg/dL (8.5-10.5); Carbon Dioxide 26 mmol/L (22-29); Chloride 98 mmol/L (98-107); Globulin 3.4 g/dL (1.3-4.6); Glomerular Filtration Rate 32.6 mL/min (90-130); Glucose 135 mg/dL (65-115); Osmolality Calculated 285 mOsm/kg (285-295); Potassium 3.5 mmol/L (3.5-5.1); Sodium 136 mmol/L (136-145); Total Bilirubin 0.2 mg/dL (0.15-1.2); Total Protein 6.3 g/dL (6.6-8.7)
[2020-05-21] MEDS: sodium chloride 0.9% 250 ML IV (12:30)
[2020-05-22] MEDS: sodium chloride 0.9% 250 ML IV (09:10)
[2020-05-23] MEDS: sodium chloride 0.9% 250 ML IV (13:29)
[2020-05-23] MEDS: pegfilgrastim 6 mg/0.6 mL Kit (onpro) SUBCUT (15:10)
[2020-05-27 12:27] LABS: Hematocrit 28.7 % (37.0-47.0); Mean Corpuscular HGB Conc 31.4 g/dL (30.0-36.0); Mean Corpuscular Hemoglobin 29.9 pg (28.0-34.0); Mean Corpuscular Volume 95.3 fL (81-99); Mean Platelet Volume 9.4 fL (7.4-10.4); Platelet Count 349 10^3/cmm (130-400); Red Blood Count 3.01 10^6/uL (4.1-5.3); Red Cell Distribution Width 14.6 % (12.1-15.1)
[2020-05-27 13:56] LABS: Slide Review Slide Review Perform
[2020-05-27 14:02] LABS: Absolute Segmented Neutrophil 36.1 10/cmm (1.6-7.1); Anisocytosis 1+; Lymphocytes 7 %; Segmented Neutrophils 82 %; Total Cells Counted 100 (0-100)
[2020-05-27 14:03] LABS: Giant Platelets Trace; Platelet Estimate Normal (Normal)
[2020-05-27 14:05] LABS: Eosinophils 0 %
[2020-06-03 12:42] LABS: Hematocrit 27.4 % (37.0-47.0); Hemoglobin 8.4 g/dL (11.5-15.3); Mean Corpuscular HGB Conc 30.7 g/dL (30.0-36.0); Mean Corpuscular Hemoglobin 29.5 pg (28.0-34.0); Mean Corpuscular Volume 96.1 fL (81-99); Mean Platelet Volume 10.1 fL (7.4-10.4); Platelet Count 273 10^3/cmm (130-400); Red Blood Count 2.85 10^6/uL (4.1-5.3); Red Cell Distribution Width 15.3 % (12.1-15.1)
[2020-06-03 13:14] LABS: Slide Review Slide Review Perform
[2020-06-03 13:16] LABS: White Blood Count 30.7 10^3/uL (4.0-10.0)
[2020-06-03 13:21] LABS: Absolute Neutrophil 21.8 10^3/cmm (1.4-6.5); Band Neutrophils Absolute 1.8 10^3/cmm (0.0-1.2); Lymphocytes 16 %; Monocytes Absolute 1.5 10^3/cmm (0.1-0.6); Platelet Estimate Decreased (Normal); Segmented Neutrophils 65 %; Total Cells Counted 100 (0-100)
--- NOTE | 2020-06-03 13:33 | CT_ITS ---
WS: [id number] Exam: CT chest wo con [id number] Date/Time of Exam: 06/03/2020 1:47 PM Reason For Exam: LUNG CANCER DLP: 953.[address] scans at [facility] use at least one of these dose optimization techniques: automat ed exposure control; mA and/or kV adjustment per patient size (includes targeted exams where dose is matched to clinical indication); or iterative reconstruction. Comparison 04/20/2020. Right hilar mass and/or mediastinal adenopathy smaller than noted on the previous study. Right-sided pleural effusion is also smaller. Small left pleural effusion. Bilateral pulmonary metastatic nodules unchanged. Residual infiltrate in the right upper and lower lobes and also the left upper lobe. The trachea is patent. Mainstem bronchi are patent. No pericardial effusion. There is mediastinal lymphad enopathy. The thoracic aorta is normal in caliber. Coronary artery calcifications. No pericardial eff usion. Multiple metastatic lesions in the liver. There is also new nodularity in the retrocrural fat as well as the pararenal fat along the posterior right kidney. A left-sided port extends into the SVC . There is also a right-sided port catheter in the SVC. Left hilar lymphadenopathy is also noted. Are as of bony sclerosis are now noted in the thoracic and lumbar vertebra as well as the sternum which m ay indicate bone metastasis. This is a change since the previous exam. There may also be rib lesions. CT/CT chest wo con [id number] IMPRESSION: 1. Right hilar mass and/or lymphadenopathy somewhat smaller than noted on the p revious study. Decreased right pleural effusion. Small left pleural effusion. 2. Bilateral pulmonary nodules unchanged. Left hilar lymphadenopathy. 3. Residual infiltrates in the right upper and lower lobes and also left upper lobes. 4. Multiple metastatic lesions in the liver. Nodularity also noted in the retro crural fat as well as along the posterior right pararenal fat. 5. Areas of bony sclerosis noted in the thoracic and lumbar vertebra as well as the sternum which may indicate bone metastasis. This is a change since prior s tudy. There may also be rib lesions.
[2020-06-03 13:43] LABS: Eosinophils 0 %
[2020-06-10 09:24] LABS: Basophils # 0.1 10^3/uL (0.0-0.1); Basophils % 0.4 %; Eosinophils % 0.2 %; Hematocrit 27.5 % (37.0-47.0); Hemoglobin 8.5 g/dL (11.5-15.3); Lymphocytes # 2.4 10^3/uL (0.8-4.8); Lymphocytes % 12.4 %; Mean Corpuscular HGB Conc 30.9 g/dL (30.0-36.0); Mean Corpuscular Hemoglobin 29.3 pg (28.0-34.0); Mean Corpuscular Volume 94.8 fL (81-99); Mean Platelet Volume 8.9 fL (7.4-10.4); Monocytes # 1.7 10^3/uL (0.2-0.9); Neutrophils # 14.31 10^3/uL (1.8-7.7); Neutrophils % 75.2 %; Nucleated Red Blood Cells % 0 %; Platelet Count 466 10^3/cmm (130-400); Red Cell Distribution Width 15.6 % (12.1-15.1)
[2020-06-10 09:49] LABS: Alanine Aminotransferase 12 U/L (0-33); Albumin Level 3.2 g/dL (3.5-5.2); Alkaline Phosphatase 344 IU/L (35-105); Anion Gap 16.4 (5-19); Aspartate Amino Transferase 15 U/L (0-32); Blood Urea Nitrogen 15 mg/dL (8-23); Calcium 8.9 mg/dL (8.5-10.5); Carbon Dioxide 25 mmol/L (22-29); Chloride 97 mmol/L (98-107); Globulin 3.2 g/dL (1.3-4.6); Glomerular Filtration Rate 63.2 mL/min (90-130); Glucose 121 mg/dL (65-115); Osmolality Calculated 282 mOsm/kg (285-295); Potassium 3.4 mmol/L (3.5-5.1); Sodium 135 mmol/L (136-145); Total Bilirubin 0.2 mg/dL (0.15-1.2); Total Protein 6.4 g/dL (6.6-8.7)
[2020-06-10] MEDS: ondansetron 2 mg/ML SDV 2 mL 8 MG IV (11:37)
[2020-06-10] MEDS: sodium chloride 0.9% 250 ML IV (11:37)
[2020-06-10] MEDS: dexamethasone 4 mg/mL INJ 5 mL 10 MG IV (11:39)
[2020-06-11] MEDS: sodium chloride 0.9% 250 ML IV (10:00)
[2020-06-12] MEDS: sodium chloride 0.9% 250 ML 999 ML IV (10:21)
[2020-06-12] MEDS: pegfilgrastim 6 mg/0.6 mL Kit (onpro) SUBCUT (11:22)
--- NOTE | 2020-06-14 14:34 | ONC FU_ITS ---
[facility] Patient Note Patient: Pamela Jack Unit #: [id number]: 1955 Dictated By: Sean VelazquezDate of Visit: Jun 10, 2020 Onc MED Follow-Up/Prog Note Chief Complaint: Lung cancer. 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 On 04/08/2020 she was admitted to the hospital after presenting to the emergency room with shortness of breath and weakness. CT scan to the chest, abdomen, and pelvis showed a large right hilar and suprahilar mass measuring 4.1 x 4.5 x 6.1 cm. There was compression of the distal right main pulmonary artery and partial occlusion of the right upper lobe and right middle lobe pulmonary arteries. There were adjacent satellite nodules with soft tissue thickening along the anterior chest wall and mediastinum. The supra hilar mass was noted to extend into the anterior mediastinum measuring 3.2 x 3.3 cm. There was bilateral hilar and subcarinal lymphadenopathy. There was evidence of postobstructive pneumonia in the right middle lobe and right lower lobe with compression of the distal right mainstem bronchus. There was moderate right pleural effusion. Numerous metastatic nodules were noted in the left lower lobe, the largest measuring 2 cm, and there were additional smaller metastatic lesions in the left upper lobe. There were innumerable enhancing masslike lesions throughout both hepatic lobes compatible with metastatic disease. The adrenal glands appeared normal. There are multiple subcentimeter metastatic peritoneal implants in the upper and mid abdomen. On 04/11/2020 she underwent ultrasound directed FNA biopsy of the liver. 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 The Ki-67 was strongly positive at 100%. Her clinical course was complicated by acute renal failure, presumed to be due to acute tubular necrosis, though a specific underlying cause for that was never really determined. She did require hemodialysis. During that time she also developed atrial fibrillation and acute diastolic congestive heart failure. The atrial fibrillation converted with medication. In the setting of metastatic high-grade neuroendocrine carcinoma, she began a trial of chemotherapy with carboplatin/etoposide. The dosages were adjusted for the renal failure/dialysis. She tolerated it without acute toxicity. Her further hospital course was complicated by left forearm abscess, for which she underwent an I & D procedure. She was discharged from the hospital on 05/01/2020. She has no significant past medical or past surgical history. She has a history of smoking 1 1/2 packs of cigarettes daily for 45 years. She has had significant alcohol use, but she had quit drinking 3-4 months prior to the hospitalization. Ms. Jack is here today for follow-up. She is due for cycle 3-day 1 carboplatin etoposide. She began her first cycle on April 17, 2020. She recently had a left subclavian Port-A-Cath placed by Dr. Sanchez on 05/16/2020. She also reports that her last dialysis was 1 week ago last Wednesday. She states overall she is feeling about the same. She feels like her shortness of breath may be a little bit worse but is not impairing her ability to take care of her self. She denies any wheezing she denies any hemoptysis. She denies chest pain or palpitations. She has had no nausea, vomiting, diarrhea or constipation. She denies any new pain. She is had some tenderness around her Port-A-Cath site but states overall she thinks it is healing good. Her appetite is still marginal but she is supplementing with Ensure and seems to be doing okay with this . She denies any mouth sores, sore throat or difficulty swallowing. She denies any rash. Her ECOG is 2. Past Medical History: Ms. Jack's medical history is unremarkable. Past Surgical History: Left Subclavian venous access device-Dr Shelton in 2019 Allergies: Linezolid Medications: Albuterol Sulfate 2 Puff(s) (of 108 (90 base) mcg/act) Aerosol Powder, Breath Activated Inhalation q 4 to 6 hours PRN Amiodarone HCl 1 (200 mg) Tablet Oral daily Apixaban 1 (5 mg) Tablet Oral b.i.d. [id number] (400-5-5000 ) Ointment Topical b.i.d. Benzonatate 1 (100 mg) Capsule Oral t.i.d. PRN Ferrous Gluconate 1 (324 (37.5 fe) mg) Tablet Oral pc (bid) Ipratropium-Albuterol 3 mL (of 0.5-2.5 (3) mg/3mL) Solution Inhalation four times a day Metoprolol Tartrate 1 (75 mg) Tablet Oral b.i.d. Nystatin 5 mL (of 235082 Units) Capsule Oral four times a day Pantoprazole Sodium 1 (40 mg) Tablet, enteric coated Oral daily Sucralfate 10 mL (of 1 g/10mL) Suspension Oral ac (tid) & at bedtime Family History: Family history is significant for mother having coronary artery disease. Social History: Ms. Jack is . She has a history of smoking 1 1/2 packs of cigarettes daily for 45 years. She has had significant alcohol use. She quit 3-4 months prior to her hospitalization. Review Of Symptoms: Constitutional Denies fevers, chills, night sweats, excessive fatigue or weight loss. Allergic/Immunologic No reactions. Eyes Denies significant visual changes. No diplopia. No amaurosis. ENMT Denies changes in hearing, sore throat, mouth sores, difficulty or changes in swallowing ability, and/or sinus drainage. Hematologic/Lymphatic Denies easy bruising or bleeding. The patient denies any tender or palpable lymph nodes. Respiratory Denies dyspnea on exertion, chest pain, cough or hemoptysis. Denies orthopnea. Cardiovascular Denies anginal chest pain, palpitations or orthopnea. Gastrointestinal Denies nausea, vomiting, diarrhea, GI bleeding, or constipation. Denies change in bowel habits and/or stool color, no heartburn or early satiety. Genitourinary (F) No hematuria, hesitancy, incontinence, vaginal bleeding, discharge or other problems with urination. Off hemodialysis now (for 1 week). Musculoskeletal Denies joint pain, swelling or redness. No decreased range of motion. Integumentary Denies chronic rashes, inflammation, ulcerations or skin changes. Neurologic Denies headache, blurred vision, and no areas of focal weakness or numbness. Normal gait. No sensory problems. Psychiatric Denies insomnia, depression, xu or mood swings. Vital Signs: Performed on Jun 10, 2020 10:54 Height - 65.00 in Weight - 180.2 lbs (LOW) BSA - 1.89 sq.m BMI - 29.99 Temperature - 98.0 F (LOW) Pulse - 92 /min Respiration - 24 /min BP - 100/66 mm(hg) O2 Sat - 98 % Pain - 0,1 - No physically strenuous activity, but ambulatory and able to carry out light or sedentary work (e.g. office work, light house work). (ECOG) Physical Examination: Constitutional Alert, oriented, no acute distress. Skin pink, warm and dry. Alopecia. Head Normocephalic; atraumatic. Eyes Conjunctivae and sclerae are clear and without icterus. Pupils are reactive and equal. Neck No jugular venous distension. Hematologic/Lymphatic No petechiae or purpura. Respiratory Lungs are clear to auscultation without rhonchi or wheezing. Cardiovascular Regular rate and rhythm of heart without murmurs,clicks, gallops or rubs. Chest Chest is symmetric without chest wall deformities. Left subclavian venous access device insertion site has healed well. Abdomen Non-tender, non-distended, no masses or ascites. Good bowel sounds noted in all quads. No guarding or rebound tenderness. No pulsatile masses. Back/Spine Non-tender to palpation. Extremities No visible deformities, no cyanosis, clubbing or edema. Musculoskeletal No tenderness or swelling, normal range of motion without obvious weakness. Integumentary No rashes or lesions. Neurologic No sensory or motor deficits, normal cerebellar function, normal gait. Psychiatric Alert and oriented times three. Coherent speech. Verbalizes understanding of our discussions today. Laboratory:Test performed on Jun 10, 2020 09:08 Sodium 135 mmol/L Potassium 3.4 mmol/L Chloride 97 mmol/L CO2 25 mmol/L Anion Gap 16.4 BUN 15 mg/dL Creatinine 0.9 mg/dL Cr Clearance (Est) 82.56 mL/min eGFR 63.2 mL/min Glucose 121 mg/dL Osmolality - Calculated 282 mOsm/kg Calcium 8.9 mg/dL Protein, Total 6.4 g/dL Albumin 3.2 g/dL Globulin 3.2 g/dL Bilirubin, Total 0.2 mg/dL ALT (SGPT) 12 U/L AST (SGOT) 15 U/L Alkaline Phosphatase 344 IU/L WBC 19.0 10 3/uL RBC 2.90 10 6/uL HGB 8.5 g/dL HCT 27.5 % MCV 94.8 fL MCH 29.3 pg MCHC 30.9 g/dL RDW 15.6 % Platelet Count 466 10 3/cmm MPV 8.9 fL Neutrophils 14.31 10 3/uL Lymphocytes 2.4 10 3/uL Monocytes 1.7 10 3/uL Eosinophils 0.0 10 3/uL Basophils 0.1 10 3/uL Neutrophil % 75.2 % Lymphocyte % 12.4 % Monocyte % 9.0 % Eosinophil % 0.2 % Basophils % 0.4 % NRBC % 0 % Test performed on Jun 03, 2020 12:05 Manual Segs % 65 % Manual Bands % 6.0 % Manual Lymphs % 16 % Atypical Lymphs % 0.0 % Total Cells Counted 100 Manual Monos % 5.0 % Manual Eos % 0 % Manual Basos % 0.0 % Metamyelocytes % 6.0 % Myelocytes % 2.0 % CBC Slide Review Slide Review Perform Platelet Estimate Decreased Manual Segs Abs 20.0 10/cmm Manual Bands Abs 1.8 10 3/cmm Manual Neutrophils Abs 21.8 10 3/cmm Manual Monocytes Abs 1.5 10 3/cmm Manual Eosinophils Abs 0.0 10 3/cmm Manual Basophils Abs 0.0 10 3/cmm Impression: 1. 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 The tumor appeared to be high-grade, but it was described as a large cell neoplasm. 2. Her clinical course was complicated by acute renal failure, presumably due to acute tubular necrosis, requiring hemodialysis. 3. She also developed atrial fibrillation and acute diastolic congestive heart failure. 4. She began a trial of chemotherapy with carboplatin/etoposide on 04/17/2020 with the chemotherapy doses adjusted for the renal failure/dialysis. 5. Her further hospital course was complicated by left forearm abscess, requiring I&D on 04/26/2020. She tolerated the chemotherapy without acute toxicity. However, by day 12 of her chemotherapy cycle she had become severely neutropenic. There was also significant drop in her hemoglobin level to 7 g. She was on antibiotic coverage and she was treated with Neupogen, and she recovered uneventfully. She did require PRBC transfusion. Her EGD on 04/30/2020 showed a 1.5 cm duodenal ulcer which appeared to be healing and not actively bleeding. Colonoscopy findings are limited to a 3 mm sessile polyp in the rectum. Ms Jack began her first cyccle of chemotherapy on 04/17/2020. Followup on the CT of the chest without contrast from June 03, 2020. It indicates right hilar mass and/or lymphadenopathy somewhat smaller than noted on previous study. Decreased right pleural effusion. Small left pleural effusion. Bilateral pulmonary nodules unchanged. Left hilar lymphadenopathy. Residual infiltrates in the right upper and lower lobes and also the left upper lobes. Metastatic lesions are noted in the liver. Nodularity are also noted in the retrocrural fat as well as along the posterior right perarenal fat. Areas of bony sclerosis noted in thoracic and lumbar vertebrae as well as the sternum may be indicating bone metastasis and this is a change since prior study. There may also be rib lesions. Plan: 1. Proceed with cycle 3-day 1 carboplatin etoposide. 2. She will continue with growth factor support as well. Continue with current antiemetics as they are working well for her. 4. Labs from today were reviewed in detail and discussed with Ms. Jack and a copy was given to her. WBC is 19.0, hemoglobin 8.5, platelets 1 66,000 and ANC is 14,000. Her creatinine is 0.9. Potassium 3.4 LFTs are normal. 5. We did review her CT of the chest without contrast from June 03, 2020. It indicates right hilar mass and/or lymphadenopathy somewhat smaller than noted on previous study. Decreased right pleural effusion. Small left pleural effusion. Bilateral pulmonary nodules unchanged. Left hilar lymphadenopathy. Residual infiltrates in the right upper and lower lobes and also the left upper lobes. Metastatic lesions are noted in the liver. Nodularity are also noted in the retrocrural fat as well as along the posterior right perarenal fat. Areas of bony sclerosis noted in thoracic and lumbar vertebrae as well as the sternum may be indicating bone metastasis and this is a change since prior study. There may also be rib lesions. We discussed that the abnormalities in the bones may actually be healing. She may have had some bone involvement before her chemotherapy was started and which is not picked up on imaging. Will just monitor this for now. 6. We will plan to see her back in 3 weeks for cycle 4 carboplatin etoposide. In the interim she will have weekly CBC CMP. 7. Ms. Jack was instructed to contact us in interim should questions or problems arise.. Signed By: Sean Velazquez-, [facility] Александр Nguyen MD <<Signature on File>>
== END 2020-06-17 23:59 | disposition home or self-care (01) ==
LOC: ONCMED 05:44
PROVIDERS: Internal Medicine Medical Oncology; Nurse Practitioner; PCP Nurse Practitioner Family; Visit Provider Internal Medicine Hematology & Oncology
DX: Z51.11 Encounter for antineoplastic chemotherapy (principal); C34.01 Malignant neoplasm of right main bronchus; C77.1 Secondary and unspecified malignant neoplasm of intrathoracic lymph nodes; C78.7 Secondary malignant neoplasm of liver and intrahepatic bile duct; N17.0 Acute kidney failure with tubular necrosis; Z99.2 Dependence on renal dialysis; I48.91 Unspecified atrial fibrillation; I50.31 Acute diastolic (congestive) heart failure; Z79.899 Other long term (current) drug therapy
CPT/HCPCS: 36591; 71250; 80053; 80500; 85007; 85025; 96367; 96372; 96375; 96413; 96417; 99214; J1100; J2405; J2469; J2505; J7040; J7050; J9045; J9181

== ENCOUNTER → 2020-06-12 12:59 | Day surgery (SDC) | payer MEDICAID, SELFPAY ==
[2020-06-12 13:30] VITALS: BP 121/78; PULSE 92; RESP 18; TEMP 36.2; O2SAT 97; BMI 35.5
[2020-06-12 14:54] LABS: Body Fluid Specific Gravity 1.015
[2020-06-12] MEDS: acetaminophen 500 mg Tablet PO (15:04)
[2020-06-12 15:25] LABS: Mononuclear %, Pleural Fluid 81 %; Mononuclear, Pleural Fluid # 0.255 10^3/uL; Polynuclear Cells, Pleural # 0.059 10^3/uL; Polynuclear Cells, Pleural % 19 %
[2020-06-12 15:27] LABS: Appearance, Pleural Fluid CLOUDY (CLEAR); Color, Pleural Fluid Pale Yellow (Pale Yellow)
[2020-06-12 15:54] LABS: PATH Referral YES
[2020-06-12 16:13] LABS: Fluid Alkaline Phos. 63 IU/L
[2020-06-12 16:14] LABS: Amylase Body Fluid 56 U/L; Cholesterol Body Fluid 37 mg/dL (0-200); LDH Body Fluid 136 U/L; Right Pleural Fluid Right Lung; Total Protein Pleural Fluid 2.4 g/dL; Triglycerides Body Fluid 19 mg/dL (0-150)
--- NOTE | 2020-06-12 16:14 | PM.OP ---
Operative Report Date of procedure: June 12, 2020 Pulmonary & Critical Care Medicine Procedure - Thoracentesis Procedure: Thoracentesis Indication: Worsening shortness of breath with moderately increased right pleural effusion. Patient recently diagnosed with metastatic small cell carcinoma of lung receiving chemo and radiation, recently off dialysis and comes to clinic for worsening shortness of breath. Bedside ultrasound showed moderately increased pleural effusion on right side. [employer](s): Aldair Sanchez MD Consent: Signed and placed in chart Anesthesia: 10 cc 1% lidocaine without epinephrine Description: Right pleural effusion was localized using ultrasound guidance and the site was marked accordingly. After chlorhexidine skin prep, area was draped in a sterile manner. 1% lidocaine was used for local anesthesia. Thoracentesis catheter was then inserted into the pleural space with aspiration of 900 cc of pleural fluid. Appearance was straw-colored and sent to pleural fluid analysis and cultures. Ultrasound guidance used: Yes. Image saved to ultrasound machine yes Moderate to severe right pleural effusion Post right-sided thoracentesis 06/12/2020 after draining/900 cc straw-colored fluid EBL: 5 cc Complications: None; evidence of lung sliding noticed bilaterally with ultrasound postprocedure essentially ruling out pneumothorax. Recommended patient to come to emergency room if she develops sudden onset chest pain or worsening shortness of breath. Pre-op Diagnosis: Lung cancer Associated Problem List Diagnoses (1) COPD (chronic obstructive pulmonary disease): Qualifiers: COPD type: unspecified COPD Qualified Code(s): J44.9 - Chronic obstructive pulmonary disease, unspecified (2) Recurrent right pleural effusion: (3) Small cell carcinoma of lung: (4) Acute diastolic heart failure:
== END ==
PROVIDERS: PCP Nurse Practitioner Family; Visit Provider Internal Medicine Pulmonary Disease
DX: J90 Pleural effusion, not elsewhere classified (principal)
CPT/HCPCS: 12345; 32555; 82150; 82465; 82945; 83615; 83986; 84075; 84157; 84315; 84478; 87015; 87070; 87075; 87102; 87116; 87205; 87206; 87801; 89050

== ENCOUNTER 2020-07-09 05:45 | Outpatient (RCR) | payer MEDICAID, SELFPAY ==
[2020-07-02 10:12] LABS: Basophils # 0.1 10^3/uL (0.0-0.1); Basophils % 0.6 %; Eosinophils # 0.1 10^3/uL (0.0-0.8); Eosinophils % 0.4 %; Hemoglobin 8.4 g/dL (11.5-15.3); Lymphocytes # 2.4 10^3/uL (0.8-4.8); Mean Corpuscular Hemoglobin 28.6 pg (28.0-34.0); Mean Corpuscular Volume 95.2 fL (81-99); Mean Platelet Volume 8.7 fL (7.4-10.4); Monocytes # 1.8 10^3/uL (0.2-0.9); Monocytes % 11.1 %; Neutrophils # 11.49 10^3/uL (1.8-7.7); Neutrophils % 71.7 %; Nucleated Red Blood Cells % 0 %; Platelet Count 440 10^3/cmm (130-400); Red Blood Count 2.94 10^6/uL (4.1-5.3); Red Cell Distribution Width 15.8 % (12.1-15.1)
[2020-07-02 10:27] LABS: Alanine Aminotransferase 10 U/L (0-33); Albumin Level 3.3 g/dL (3.5-5.2); Alkaline Phosphatase 288 IU/L (35-105); Anion Gap 13.9 (5-19); Aspartate Amino Transferase 14 U/L (0-32); Blood Urea Nitrogen 15 mg/dL (8-23); Carbon Dioxide 28 mmol/L (22-29); Chloride 96 mmol/L (98-107); Globulin 3.1 g/dL (1.3-4.6); Glomerular Filtration Rate 63.2 mL/min (90-130); Glucose 99 mg/dL (65-115); Osmolality Calculated 279 mOsm/kg (285-295); Potassium 3.9 mmol/L (3.5-5.1); Sodium 134 mmol/L (136-145); Total Bilirubin 0.2 mg/dL (0.15-1.2); Total Protein 6.4 g/dL (6.6-8.7)
[2020-07-02] MEDS: sodium chloride 0.9% 250 ML IV (12:38)
[2020-07-02] MEDS: ondansetron 2 mg/ML SDV 2 mL 8 MG IV (12:38)
[2020-07-03] MEDS: ondansetron 2 mg/ML SDV 2 mL 8 MG IV (10:05)
[2020-07-03] MEDS: sodium chloride 0.9% 250 ML IV (10:05)
[2020-07-03] MEDS: FUROsemide 10 mg/mL SDV 2mL 20 MG IVP (10:10)
[2020-07-04] MEDS: sodium chloride 0.9% 250 ML IV (10:50)
[2020-07-04] MEDS: FUROsemide 10 mg/mL SDV 2mL 20 MG IV (10:50)
[2020-07-04] MEDS: palonosetron 0.25 mg/5 mL SDV IVP (10:52)
[2020-07-04] MEDS: pegfilgrastim 6 mg/0.6 mL Kit (onpro) SUBCUT (12:25)
--- NOTE | 2020-07-07 21:21 | ONC FU_ITS ---
[facility] Patient Note Patient: Pamela Jack Unit #: [id number]: 1955 Dictated By: Sean VelazquezDate of Visit: Jul 02, 2020 Onc MED Follow-Up/Prog Note Chief Complaint: Lung cancer. 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 On 04/08/2020 she was admitted to the hospital after presenting to the emergency room with shortness of breath and weakness. CT scan to the chest, abdomen, and pelvis showed a large right hilar and suprahilar mass measuring 4.1 x 4.5 x 6.1 cm. There was compression of the distal right main pulmonary artery and partial occlusion of the right upper lobe and right middle lobe pulmonary arteries. There were adjacent satellite nodules with soft tissue thickening along the anterior chest wall and mediastinum. The supra hilar mass was noted to extend into the anterior mediastinum measuring 3.2 x 3.3 cm. There was bilateral hilar and subcarinal lymphadenopathy. There was evidence of postobstructive pneumonia in the right middle lobe and right lower lobe with compression of the distal right mainstem bronchus. There was moderate right pleural effusion. Numerous metastatic nodules were noted in the left lower lobe, the largest measuring 2 cm, and there were additional smaller metastatic lesions in the left upper lobe. There were innumerable enhancing masslike lesions throughout both hepatic lobes compatible with metastatic disease. The adrenal glands appeared normal. There are multiple subcentimeter metastatic peritoneal implants in the upper and mid abdomen. On 04/11/2020 she underwent ultrasound directed FNA biopsy of the liver. 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 The Ki-67 was strongly positive at 100%. Her clinical course was complicated by acute renal failure, presumed to be due to acute tubular necrosis, though a specific underlying cause for that was never really determined. She did require hemodialysis. During that time she also developed atrial fibrillation and acute diastolic congestive heart failure. The atrial fibrillation converted with medication. In the setting of metastatic high-grade neuroendocrine carcinoma, she began a trial of chemotherapy with carboplatin/etoposide. The dosages were adjusted for the renal failure/dialysis. She tolerated it without acute toxicity. Her further hospital course was complicated by left forearm abscess, for which she underwent an I & D procedure. She was discharged from the hospital on 05/01/2020. She has no significant past medical or past surgical history. She has a history of smoking 1 1/2 packs of cigarettes daily for 45 years. She has had significant alcohol use, but she had quit drinking 3-4 months prior to the hospitalization. Ms. Jack is here today for follow-up. She is due for cycle 4-day 1 carboplatin etoposide. She began her first cycle on April 17, 2020. She had a left subclavian Port-A-Cath placed by Dr. Sanchez on 05/16/2020. She also reports that her last dialysis was around 06-03-2020. She has tolerated treatment relatively well overall. She has no new concerns today. She denies any fever or chills. She denies any mouth sores, sore throat or difficulty swallowing. She states she is had no neuropathy to speak of. She denies nausea or vomiting. She denies diarrhea or constipation. She states she has joint/bone pain which is worse at night. It is relieved with hydrocodone 5 325 mg. She states she takes it no more than 2-3 times a day. She states she is eating fair. Her energy is marginal. She states she can get her chores done through the day but requires rest intermittently. She denies any chest pain or palpitations. She states her breathing is the same. She is had no lower extremity edema. Her ECOG is 1. Past Medical History: Ms. Jack's medical history is unremarkable. Past Surgical History: Left Subclavian venous access device-Dr Shelton in 2019 Allergies: Linezolid Medications: Albuterol Sulfate 2 Puff(s) (of 108 (90 base) mcg/act) Aerosol Powder, Breath Activated Inhalation q 4 to 6 hours PRN Amiodarone HCl 1 (200 mg) Tablet Oral daily Apixaban 1 (5 mg) Tablet Oral b.i.d. Ycunjvvvpa-Hfmczbbn-Tcoformpp (400-5-5000 ) Ointment Topical b.i.d. Benzonatate 1 (100 mg) Capsule Oral t.i.d. PRN Ferrous Gluconate 1 (324 (37.5 fe) mg) Tablet Oral pc (bid) Ipratropium-Albuterol 3 mL (of 0.5-2.5 (3) mg/3mL) Solution Inhalation four times a day LORazepam 0.5 - 1 Tablet (of 1 mg) Oral t.i.d. Metoprolol Tartrate 1 (75 mg) Tablet Oral b.i.d. Nystatin 5 mL (of [id number] Units) Capsule Oral four times a day Pantoprazole Sodium 1 (40 mg) Tablet, enteric coated Oral daily Prochlorperazine Maleate 1 Tablet (of 10 mg) Oral q 4 hours Sucralfate 10 mL (of 1 g/10mL) Suspension Oral ac (tid) & at bedtime Family History: Family history is significant for mother having coronary artery disease. Social History: Ms. Jack is . She has a history of smoking 1 1/2 packs of cigarettes daily for 45 years. She has had significant alcohol use. She quit 3-4 months prior to her hospitalization. Review Of Symptoms: Constitutional Denies fevers, chills, night sweats, excessive fatigue. Allergic/Immunologic No reactions. Eyes Denies significant visual changes. No diplopia. No amaurosis. ENMT Denies changes in hearing, sore throat, mouth sores, difficulty or changes in swallowing ability, and/or sinus drainage. Hematologic/Lymphatic Denies easy bruising or bleeding. The patient denies any tender or palpable lymph nodes. Respiratory Denies dyspnea on exertion, chest pain, cough or hemoptysis. Denies orthopnea. Cardiovascular Denies anginal chest pain, palpitations or orthopnea. Gastrointestinal Denies nausea, vomiting, diarrhea, GI bleeding, or constipation. Denies change in bowel habits and/or stool color, no heartburn or early satiety. Genitourinary (F) No hematuria, hesitancy, incontinence, vaginal bleeding, discharge or other problems with urination. Off hemodialysis now (for 1 week). Musculoskeletal Denies joint swelling or redness. No decreased range of motion. She has had joint/bone pain which she states is worse at night. It is chronic but she does get relief with hydrocodone. Integumentary Denies chronic rashes, inflammation, ulcerations or skin changes. Neurologic Denies headache, blurred vision, and no areas of focal weakness or numbness. Normal gait. No sensory problems. Psychiatric Denies insomnia, depression, xu or mood swings. Vital Signs: Performed on Jul 02, 2020 11:35 Height - 65.00 in Weight - 179.4 lbs (LOW) BSA - 1.89 sq.m BMI - 29.85 Temperature - 97.5 F (LOW) Pulse - 92 /min Respiration - 18 /min BP - 107/72 mm(hg) O2 Sat - 99 % Pain - 0,1 - No physically strenuous activity, but ambulatory and able to carry out light or sedentary work (e.g. office work, light house work). (ECOG) Physical Examination: Constitutional Alert, oriented, no acute distress. Skin pink, warm and dry. Alopecia. Head Normocephalic; atraumatic. Eyes Conjunctivae and sclerae are clear and without icterus. Pupils are reactive and equal. Neck No jugular venous distension. Hematologic/Lymphatic No petechiae or purpura. Respiratory Lungs are clear to auscultation without rhonchi or wheezing. Cardiovascular Regular rate and rhythm of heart without murmurs,clicks, gallops or rubs. Chest Chest is symmetric without chest wall deformities. Left subclavian venous access device insertion site has healed well. Abdomen Non-tender, non-distended, no masses or ascites. Good bowel sounds noted in all quads. No guarding or rebound tenderness. No pulsatile masses. Back/Spine Non-tender to palpation. Extremities No visible deformities, no cyanosis, clubbing or edema. Musculoskeletal No tenderness or swelling, normal range of motion without obvious weakness. Integumentary No rashes or lesions. Neurologic No sensory or motor deficits, normal cerebellar function, normal gait. Psychiatric Alert and oriented times three. Coherent speech. Verbalizes understanding of our discussions today. Laboratory:Test performed on Jul 02, 2020 09:55 Sodium 134 mmol/L Potassium 3.9 mmol/L Chloride 96 mmol/L CO2 28 mmol/L Anion Gap 13.9 BUN 15 mg/dL Creatinine 0.9 mg/dL Cr Clearance (Est) 82.5600 mL/min eGFR 63.2 mL/min Glucose 99 mg/dL Osmolality - Calculated 279 mOsm/kg Calcium 9.0 mg/dL Protein, Total 6.4 g/dL Albumin 3.3 g/dL Globulin 3.1 g/dL Bilirubin, Total 0.2 mg/dL ALT (SGPT) 10 U/L AST (SGOT) 14 U/L Alkaline Phosphatase 288 IU/L WBC 16.0 10 3/uL RBC 2.94 10 6/uL HGB 8.4 g/dL HCT 28.0 % MCV 95.2 fL MCH 28.6 pg MCHC 30.0 g/dL RDW 15.8 % Platelet Count 440 10 3/cmm MPV 8.7 fL Neutrophils 11.49 10 3/uL Lymphocytes 2.4 10 3/uL Monocytes 1.8 10 3/uL Eosinophils 0.1 10 3/uL Basophils 0.1 10 3/uL Neutrophil % 71.7 % Lymphocyte % 15.0 % Monocyte % 11.1 % Eosinophil % 0.4 % Basophils % 0.6 % NRBC % 0 % Test performed on Jun 03, 2020 12:05 Manual Segs % 65 % Manual Bands % 6.0 % Manual Lymphs % 16 % Atypical Lymphs % 0.0 % Total Cells Counted 100 Manual Monos % 5.0 % Manual Eos % 0 % Manual Basos % 0.0 % Metamyelocytes % 6.0 % Myelocytes % 2.0 % CBC Slide Review Slide Review Perform Platelet Estimate Decreased Manual Segs Abs 20.0 10/cmm Manual Bands Abs 1.8 10 3/cmm Manual Neutrophils Abs 21.8 10 3/cmm Manual Monocytes Abs 1.5 10 3/cmm Manual Eosinophils Abs 0.0 10 3/cmm Manual Basophils Abs 0.0 10 3/cmm Test performed on May 27, 2020 12:10 Anisocytosis 1+ Platelets, Giant Trace Test performed on Apr 16, 2020 11:39 Magnesium 2.4 mg/dL Uric Acid 0.6 mg/dL Phosphorous 9.4 mg/dL NRBCs 0.0 /100 WBC Impression: 1. 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 The tumor appeared to be high-grade, but it was described as a large cell neoplasm. 2. Her clinical course was complicated by acute renal failure, presumably due to acute tubular necrosis, requiring hemodialysis. 3. She also developed atrial fibrillation and acute diastolic congestive heart failure. 4. She began a trial of chemotherapy with carboplatin/etoposide on 04/17/2020 with the chemotherapy doses adjusted for the renal failure/dialysis. 5. Her further hospital course was complicated by left forearm abscess, requiring I&D on 04/26/2020. She tolerated the chemotherapy without acute toxicity. However, by day 12 of her chemotherapy cycle she had become severely neutropenic. There was also significant drop in her hemoglobin level to 7 g. She was on antibiotic coverage and she was treated with Neupogen, and she recovered uneventfully. She did require PRBC transfusion. Her EGD on 04/30/2020 showed a 1.5 cm duodenal ulcer which appeared to be healing and not actively bleeding. Colonoscopy findings are limited to a 3 mm sessile polyp in the rectum. Ms Jack began her first cyccle of chemotherapy on 04/17/2020. Followup on the CT of the chest without contrast from June 03, 2020. It indicates right hilar mass and/or lymphadenopathy somewhat smaller than noted on previous study. Decreased right pleural effusion. Small left pleural effusion. Bilateral pulmonary nodules unchanged. Left hilar lymphadenopathy. Residual infiltrates in the right upper and lower lobes and also the left upper lobes. Metastatic lesions are noted in the liver. Nodularity are also noted in the retrocrural fat as well as along the posterior right perarenal fat. Areas of bony sclerosis noted in thoracic and lumbar vertebrae as well as the sternum may be indicating bone metastasis and this is a change since prior study. There may also be rib lesions. She continues with carboplatin.etoposide. She is tolerating it well with expected side effects. Plan: 1. Proceed with cycle 4-day 1 carboplatin etoposide. 2. She will continue with growth factor support as well. 3. Continue with current antiemetics as they are working well for her. 4. Labs from today were reviewed in detail and discussed with Ms. Jack and a copy was given to her. WBC 16, hemoglobin 8.4, platelets 1 40,000 ANC is 11,500. Potassium 3.9 creatinine 0.9 LFTs are normal alk phos is improved at 288, it was 344 on 06/10/2020. Her weight is stable at 179.4 last visit was 180.2. 5. We did review her CT of the chest without contrast from June 03, 2020. It indicates right hilar mass and/or lymphadenopathy somewhat smaller than noted on previous study. Decreased right pleural effusion. Small left pleural effusion. Bilateral pulmonary nodules unchanged. Left hilar lymphadenopathy. Residual infiltrates in the right upper and lower lobes and also the left upper lobes. Metastatic lesions are noted in the liver. Nodularity are also noted in the retrocrural fat as well as along the posterior right perarenal fat. Areas of bony sclerosis noted in thoracic and lumbar vertebrae as well as the sternum may be indicating bone metastasis and this is a change since prior study. There may also be rib lesions. We discussed that the abnormalities in the bones may actually be healing. She may have had some bone involvement before her chemotherapy was started and which is not picked up on imaging. Will just monitor this for now. 6. We will plan to see her back in 3 weeks for cycle 5 carboplatin etoposide. In the interim she will have weekly CBC CMP. 7. Refill hydrocodone 11/18/2024 (per Dr. Nguyen's written prescription) 1 or 2 every 4 to 6 as needed pain #90 with no refills for bone and joint pain???chronic. 8. Ms. Jack was instructed to contact us in interim should questions or problems arise.. Signed By: Sean Velazquez-, [facility] Александр Nguyen MD <<Signature on File>>
[2020-07-09 09:11] LABS: Hematocrit 27.6 % (37.0-47.0); Hemoglobin 8.4 g/dL (11.5-15.3); Mean Corpuscular HGB Conc 30.4 g/dL (30.0-36.0); Mean Corpuscular Hemoglobin 29.9 pg (28.0-34.0); Mean Corpuscular Volume 98.2 fL (81-99); Mean Platelet Volume 9.2 fL (7.4-10.4); Platelet Count 403 10^3/cmm (130-400); Red Blood Count 2.81 10^6/uL (4.1-5.3); Red Cell Distribution Width 15.9 % (12.1-15.1)
[2020-07-09 09:30] LABS: Alanine Aminotransferase 11 U/L (0-33); Albumin Level 3.4 g/dL (3.5-5.2); Alkaline Phosphatase 322 IU/L (35-105); Anion Gap 13.6 (5-19); Aspartate Amino Transferase 10 U/L (0-32); Blood Urea Nitrogen 15 mg/dL (8-23); Calcium 8.5 mg/dL (8.5-10.5); Carbon Dioxide 29 mmol/L (22-29); Chloride 96 mmol/L (98-107); Globulin 2.7 g/dL (1.3-4.6); Glomerular Filtration Rate 72.4 mL/min (90-130); Glucose 107 mg/dL (65-115); Osmolality Calculated 281 mOsm/kg (285-295); Potassium 3.6 mmol/L (3.5-5.1); Sodium 135 mmol/L (136-145); Total Bilirubin 0.2 mg/dL (0.15-1.2); Total Protein 6.1 g/dL (6.6-8.7)
[2020-07-09 10:04] LABS: Slide Review Slide Review Perform; White Blood Count 54.3 10^3/uL (4.0-10.0)
[2020-07-09 10:05] LABS: Absolute Eosinophils 0.5 10^3/cmm (0.0-0.7); Absolute Neutrophil 47.2 10^3/cmm (1.4-6.5); Absolute Segmented Neutrophil 31.5 10/cmm (1.6-7.1); Band Neutrophils Absolute 15.7 10^3/cmm (0.0-1.2); Eosinophils 1 %; Lymphocytes 9 %; Monocytes Absolute 1.1 10^3/cmm (0.1-0.6); Platelet Estimate Normal (Normal); Poikilocytosis 1+; Segmented Neutrophils 58 %; Stomatocytes 1+; Total Cells Counted 100 (0-100)
== END 2020-07-18 23:59 | disposition home or self-care (01) ==
LOC: ONCMED 05:45
PROVIDERS: PCP Nurse Practitioner Family; Visit Provider Nurse Practitioner
DX: Z51.11 Encounter for antineoplastic chemotherapy (principal); C34.01 Malignant neoplasm of right main bronchus; C77.1 Secondary and unspecified malignant neoplasm of intrathoracic lymph nodes; C78.7 Secondary malignant neoplasm of liver and intrahepatic bile duct; N17.0 Acute kidney failure with tubular necrosis; Z99.2 Dependence on renal dialysis; Z79.899 Other long term (current) drug therapy
CPT/HCPCS: 36591; 80053; 85007; 85025; 96367; 96372; 96375; 96413; 96417; 99214; J1100; J1940; J2405; J2469; J2505; J7040; J7050; J9045; J9181

== ENCOUNTER 2020-08-02 08:18 | Outpatient (CLI) | payer MEDICAID, SELFPAY ==
--- NOTE | 2020-08-02 08:31 | CT_ITS ---
WS: [id number] CT CHEST, ABDOMEN, AND PELVIS TECHNIQUE: Contrast-enhanced CT of the chest, abdomen, and pelvis with coronal and sagittal reformatt ed images. CLINICAL INFORMATION: NEOPLASM OF RIGHT MAIN BRONCHUS COMPARISON: CT June 03, 2020 and April 20, 2020 and April 10, 2020 DLP: 1685.[address] scans at [facility] use at least one of these dose optimization techniques: automat ed exposure control; mA and/or kV adjustment per patient size (includes targeted exams where dose is matched to clinical indication); or iterative reconstruction. CT CHEST: Numerous new and progressed pulmonary metastasis worse in the right upper and right lower lobes eva red to June 03, 2020. Additional progressed pulmonary metastasis in the left lower lobe. Small ri ght pleural effusion is similar in appearance. Right hilar soft tissue mass progressed slightly. Ante rior mediastinal lymphadenopathy appears progressed. Subcarinal lymphadenopathy progressed. Mild left hilar lymphadenopathy. No axillary lymphadenopathy. Normal caliber thoracic aorta. Aortic calcification. Proximal main pulmonary arteries normal caliber. Largest intraparenchymal pulmonary metastasis measures approximately 2.4 cm increased from previous right upper lobe. Progressed diffuse blastic metastasis throughout the thoracic and lumbar spine. Mild compression supe rior endplate L2 is new from previous. Additional diffuse blastic metastasis throughout the sacrum an d partially visualized pelvic bony structures and proximal femurs. CT ABDOMEN AND PELVIS: Hepatomegaly. Diffuse metastatic disease in both hepatic lobes. Metastatic lesions have increased in size with the largest in the caudate measuring 4 CM. Metastatic nodular implants along the right rios diaphragm and pleura. Adrenal glands are normal. No hydronephrosis. Normal renal parenchymal enhancement. Metastatic perito susannah nodules in the upper abdomen Normal caliber abdominal aorta. Aortic calcification. Normal sigmoid colon. No evidence of high-grade small or large bowel obstruction. Prominent lymph nodes within the upper abdomen along the celiac ax is. No periaortic lymphadenopathy. No inguinal lymphadenopathy. CT/CT chest abd pel w con* IMPRESSION: 1. Progressed metastatic disease within the chest with multiple Progressed pul monary metastasis. 2. Progressed right hilar and anterior mediastinal mass/lymphadenopathy. Progr essed subcarinal lymphadenopathy. 3. Small right pleural effusion. 4. Progressed diffuse blastic metastasis throughout the thoracic and lumbar sp ine. 5. Mild compression superior endplate L2 is new from previous. 6. Additional diffuse extensive progressed blastic metastasis throughout the s acrum and partially visualized pelvic bony structures and proximal femurs. 7. Multiple upper abdominal peritoneal implants consistent with metastatic dis ease. Additional implants along the crura of the right hemidiaphragm and right pleural space. Notified Александр Nguyen MD at 08/02/2020 11:16 AM.
[2020-08-02] MEDS: iohexol 300 mg/mL 100 mL Btl IV (09:56)
[2020-08-02] MEDS: iohexol 300 mg/mL 50 mL Btl PO (09:57)
== END 2020-08-02 08:19 | disposition home or self-care (01) ==
LOC: RAD 08:20
PROVIDERS: PCP Nurse Practitioner Family; Visit Provider Internal Medicine Medical Oncology
DX: C34.01 Malignant neoplasm of right main bronchus (principal); J90 Pleural effusion, not elsewhere classified; R59.1 Generalized enlarged lymph nodes
CPT/HCPCS: 71260; 74177

== ENCOUNTER 2020-08-16 05:34 | Outpatient (RCR) | payer MEDICAID, SELFPAY ==
--- NOTE | 2020-07-27 11:12 | ONC FU_ITS ---
Dr. Nguyen Patient Follow-Up Note Patient: Pamela Jack Unit #: [id number]: 1955 Dicatated By: Александр Nguyen M.D.Date of Visit:Jul 23, 2020 Onc Med Follow-up/Prog Note Chief Complaint: Lung cancer. 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 On 04/08/2020 she was admitted to the hospital after presenting to the emergency room with shortness of breath and weakness. CT scan to the chest, abdomen, and pelvis showed a large right hilar and suprahilar mass measuring 4.1 x 4.5 x 6.1 cm. There was compression of the distal right main pulmonary artery and partial occlusion of the right upper lobe and right middle lobe pulmonary arteries. There were adjacent satellite nodules with soft tissue thickening along the anterior chest wall and mediastinum. The supra hilar mass was noted to extend into the anterior mediastinum measuring 3.2 x 3.3 cm. There was bilateral hilar and subcarinal lymphadenopathy. There was evidence of postobstructive pneumonia in the right middle lobe and right lower lobe with compression of the distal right mainstem bronchus. There was moderate right pleural effusion. Numerous metastatic nodules were noted in the left lower lobe, the largest measuring 2 cm, and there were additional smaller metastatic lesions in the left upper lobe. There were innumerable enhancing masslike lesions throughout both hepatic lobes compatible with metastatic disease. The adrenal glands appeared normal. There are multiple subcentimeter metastatic peritoneal implants in the upper and mid abdomen. On 04/11/2020 she underwent ultrasound directed FNA biopsy of the liver. 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 The Ki-67 was strongly positive at 100%. Her clinical course was complicated by acute renal failure, presumed to be due to acute tubular necrosis, though a specific underlying cause for that was never really determined. She did require hemodialysis. During that time she also developed atrial fibrillation and acute diastolic congestive heart failure. The atrial fibrillation converted with medication. I had seen her initially as an inpatient on 04/14/2020. In the setting of advanced stage neuroendocrine lung cancer, she was recommended to undergo a trial of chemotherapy with carboplatin/etoposide. Her initial management was complicated by the renal failure and dialysis. She began cycle 1 on 04/17/2020, and she was able to tolerated with acceptable toxicity. Her further hospital course was complicated by left forearm abscess, for which she underwent an I & D procedure. She was discharged from the hospital on 05/01/2020. She then continued with cycle 2 on 05/21/2020, cycle 3 on 06/10/2020, and cycle 4 on 07/02/2020. During that time, she did have recovery of her renal function. A restaging chest CT on 06/03/2020 showed some decrease in the right hilar mass/lymphadenopathy and decreased right pleural effusion. Bilateral pulmonary nodules and left hilar lymphadenopathy appeared unchanged. Multiple metastatic lesions were again noted in the liver and there were new areas of bony sclerosis. She has no significant past medical or past surgical history. She has a history of smoking 1 1/2 packs of cigarettes daily for 45 years. She has had significant alcohol use, but she had quit drinking 3-4 months prior to the hospitalization. She is seen for a followup visit. She has been feeling more tired lately. She has limited activity. ECOG score is 2. Appetite is not very good. Eats small amounts on a more frequent basis. Her weight recently has been stable. She does not have fever or night sweats. She has shortness of breath and she is still on continuous oxygen. Her breathing, though, has improved after starting Lasix. She has just occasional cough. She does not complain of chest pain. She has had nausea and acid reflux, which she thinks may be associated with Chantix. Her bowel function lately has been better, as she had been having constipation with her oral iron supplement. Bladder function has been okay. She has joint pain, particularly in the hips and knees. It is managed adequately with medication. She does not complain of headache and she has no focal neurologic symptoms. Medications: Albuterol Sulfate 2 Puff(s) (of 108 (90 base) mcg/act) Aerosol Powder, Breath Activated Inhalation q 4 to 6 hours PRN, Anoro Ellipta 1 Inhalation (of 62.5-25 mcg/inh) Aerosol Powder, Breath Activated Inhalation daily, Bumex 1 (1 mg) Tablet Oral b.i.d., LORazepam 0.5 - 1 Tablet (of 1 mg) Oral t.i.d. PRN, Prochlorperazine Maleate 1 Tablet (of 10 mg) Oral q 4 hours PRN Allergies: Linezolid Vital Signs: Performed on Jul 23, 2020 09:19 Height - 65.00 in Weight - 181.4 lbs (HIGH) BSA - 1.90 sq.m BMI - 30.19 (HIGH) Temperature - 97.4 F (LOW) Pulse - 88 /min Respiration - 18 /min BP - 104/73 mm(hg) O2 Sat - 99 % Pain - 0 Physical Examination: Constitutional - She appears generally weak, Eyes - Sclerae nonicteric. Conjunctivae clear, ENMT - No lesions noted in the oral cavity, Hematologic/Lymphatic - No cervical, clavicular, or axillary adenopathy, Respiratory - Lungs sound clear but with diminished air movement on the right, Cardiovascular - Heart rhythm is regular. There is no murmur, gallop, or rub noted, Abdomen - Soft and non-tender. Liver and spleen are not enlarged. There is no abdominal mass or ascites noted and there is no inguinal adenopathy, Extremities - No edema, Neurologic - No focal neurologic deficits noted. Lab/Imaging: Test performed on Jul 22, 2020 14:20 Glucose 90 mg/dL BUN 16 mg/dL Creatinine 0.81 mg/dL Cr Clearance (Est) 91.73 mL/min Sodium 136 mmol/L Potassium 4.1 mmol/L Chloride 101 mmol/L CO2 27 mmol/L Calcium 9.2 mg/dL Protein, Total 6.3 g/dL Albumin 3.4 g/dL Bilirubin, Total 0.2 mg/dL Alkaline Phosphatase 264 IU/L AST (SGOT) 15 IU/L ALT (SGPT) 12 IU/L WBC 13.8 10^9/L RBC 3.03 10^12/L HGB 8.8 g/dL HCT 28.8 % MCV 95.0 fl MCH 29.0 pg MCHC 30.6 g/dL RDW 16.2 % Platelet Count 395 10^9/L MPV 8.8 fL Neutrophils (Gran) 10.26 10^9/L Lymphocytes 2.13 10^9/L Monocytes 1.21 10^9/L Eosinophils 0.03 10^9/L Basophils 0.06 10^9/L Manual Lymphocytes 15 % Manual Monocytes 9 % Manual Eosinophils 0 % Manual Basophils 0 % Test performed on Jul 02, 2020 09:55 Anion Gap 13.9 eGFR 63.2 mL/min Osmolality - Calculated 279 mOsm/kg Globulin 3.1 g/dL Neutrophil % 71.7 % Lymphocyte % 15.0 % Monocyte % 11.1 % Eosinophil % 0.4 % Basophils % 0.6 % NRBC % 0 % Historic Problem List: 1. Poorly differentiated neuroendocrine carcinoma involving the hilar region of the right lung, stage IVB (T3, N3, M1c). The tumor appeared to be high-grade, but it was described as a large cell neoplasm. 2. Her initial clinical course was complicated by acute renal failure, presumably due to acute tubular necrosis, requiring hemodialysis. 3. She also developed atrial fibrillation and acute diastolic congestive heart failure. 4. She began a trial of chemotherapy with carboplatin/etoposide on 04/17/2020 with the chemotherapy doses adjusted for the renal failure/dialysis. 5. Her further hospital course was complicated by left forearm abscess, requiring I&D on 04/26/2020. Problems Addressed with this Encounter and Plan: 1. Poorly differentiated neuroendocrine carcinoma involving the hilar region of the right lung, stage IVB (T3, N3, M1c). The diagnosis was established by liver biopsy on 04/11/2020. Her initial clinical course was complicated by acute renal failure, requiring dialysis. On 04/17/2020 she began a trial of chemotherapy with carboplatin/etoposide. She has now completed 4 cycles of treatment. She did appear to be showing some response on restaging chest CT after 2 cycles, and during that time she did have recovery of her renal function. At this point she continues to have marginal performance status. It is uncertain to what extent that may be due to the lung cancer, to treatment related toxicities, or to other factors. At this point her further chemotherapy will be deferred pending outcome of restaging CT scans of the chest, abdomen, and pelvis. In addition, I will be requesting a next generation sequencing study on her biopsy, assuming adequate tissue is available, as it potentially may impact her further management. 2. Moderately severe anemia. This is likely to be multifactorial, in part due to the underlying malignancy and to her chemotherapy. However, she also may have a component of iron deficiency, as her transferrin saturation was found to be low at 14.6%. She has had poor tolerance for oral iron supplementation due to constipation. If there is continued evidence of iron deficiency, she will be given parenteral iron replacement with Injectafer. 3. Nicotine dependence. She has been taking Chantix, though she does not feel that its really been helping very much. She does appear to be having significant GI side effects with it, and she is advised now to stop taking it. Signed By: Александр Nguyen M.D. <<Signature on File>>
--- NOTE | 2020-08-02 12:33 | ONC FU_ITS ---
Dr. Nguyen Patient Follow-Up Note Patient: Pamela Jack Unit #: [id number]: 1955 Dicatated By: Александр Nguyen M.D.Date of Visit:Aug 02, 2020 Onc Med Follow-up/Prog Note Chief Complaint: Lung cancer. 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 On 04/08/2020 she was admitted to the hospital after presenting to the emergency room with shortness of breath and weakness. CT scan to the chest, abdomen, and pelvis showed a large right hilar and suprahilar mass measuring 4.1 x 4.5 x 6.1 cm. There was compression of the distal right main pulmonary artery and partial occlusion of the right upper lobe and right middle lobe pulmonary arteries. There were adjacent satellite nodules with soft tissue thickening along the anterior chest wall and mediastinum. The supra hilar mass was noted to extend into the anterior mediastinum measuring 3.2 x 3.3 cm. There was bilateral hilar and subcarinal lymphadenopathy. There was evidence of postobstructive pneumonia in the right middle lobe and right lower lobe with compression of the distal right mainstem bronchus. There was moderate right pleural effusion. Numerous metastatic nodules were noted in the left lower lobe, the largest measuring 2 cm, and there were additional smaller metastatic lesions in the left upper lobe. There were innumerable enhancing masslike lesions throughout both hepatic lobes compatible with metastatic disease. The adrenal glands appeared normal. There are multiple subcentimeter metastatic peritoneal implants in the upper and mid abdomen. On 04/11/2020 she underwent ultrasound directed FNA biopsy of the liver. 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 The Ki-67 was strongly positive at 100%. Her clinical course was complicated by acute renal failure, presumed to be due to acute tubular necrosis, though a specific underlying cause for that was never really determined. She did require hemodialysis. During that time she also developed atrial fibrillation and acute diastolic congestive heart failure. The atrial fibrillation converted with medication. I had seen her initially as an inpatient on 04/14/2020. In the setting of advanced stage neuroendocrine lung cancer, she was recommended to undergo a trial of chemotherapy with carboplatin/etoposide. Her initial management was complicated by the renal failure and dialysis. She began cycle 1 on 04/17/2020, and she was able to tolerated with acceptable toxicity. Her further hospital course was complicated by left forearm abscess, for which she underwent an I & D procedure. She was discharged from the hospital on 05/01/2020. She then continued with cycle 2 on 05/21/2020, with cycle 3 on 06/10/2020, and with cycle 4 on 07/02/2020. During that time, she did have recovery of her renal function. A restaging chest CT on 06/03/2020 showed some decrease in the right hilar mass/lymphadenopathy and decreased right pleural effusion. Bilateral pulmonary nodules and left hilar lymphadenopathy appeared unchanged. Multiple metastatic lesions were again noted in the liver and there were new areas of bony sclerosis. She has no significant past medical or past surgical history. She has a history of smoking 1 1/2 packs of cigarettes daily for 45 years. She has had significant alcohol use, but she had quit drinking 3-4 months prior to the hospitalization. INTERIM HISTORY: I had seen her for a follow-up visit on 07/23/2020. At that point she did appear to be showing some decline in performance status, and I opted to defer further treatment pending outcome of restaging CT scans. The CT scans of the chest, abdomen, and pelvis done earlier today did show evidence of progressed pulmonary metastatic disease, progressed right hilar, anterior mediastinal, and subcarinal lymphadenopathy, progression of hepatic metastatic disease and upper abdominal peritoneal implants, and progression of bony metastatic disease. She is seen today to review the CT results and discuss further management. She has having more pain, mainly in the right upper quadrant area and back. She has limited activity tolerance, she is able to do some light work. ECOG score is 2. Her appetite has been okay. She has no fever or night sweats. Her breathing is okay with oxygen. She does report having cough, especially when she is lying down. She does not complain of chest pain. Bowel and bladder function remain adequate. She has no focal neurologic symptoms. Medications: Albuterol Sulfate 2 Puff(s) (of 108 (90 base) mcg/act) Aerosol Powder, Breath Activated Inhalation q 4 to 6 hours PRN, Anoro Ellipta 1 Inhalation (of 62.5-25 mcg/inh) Aerosol Powder, Breath Activated Inhalation daily, Bumex 1 (1 mg) Tablet Oral b.i.d., LORazepam 0.5 - 1 Tablet (of 1 mg) Oral t.i.d. PRN, Prochlorperazine Maleate 1 Tablet (of 10 mg) Oral q 4 hours PRN Allergies: Linezolid Vital Signs: Performed on Aug 02, 2020 10:34 Height - 65.00 in Weight - 179 lbs (LOW) BSA - 1.89 sq.m BMI - 29.79 Temperature - 97.5 F (LOW) Pulse - 94 /min Respiration - 16 /min BP - 135/78 mm(hg) O2 Sat - 100 % Pain - 7 Physical Examination: Constitutional - She appears somewhat weak generally, Eyes - Sclerae nonicteric. Conjunctivae clear, ENMT - No lesions noted in the oral cavity, Hematologic/Lymphatic - No cervical, clavicular, or axillary adenopathy, Respiratory - Lungs show diminished air movement and coarse breath sounds bilaterally, Cardiovascular - Heart rhythm is regular. There is no murmur, gallop, or rub noted, Abdomen - Mildly distended. The liver is enlarged with palpable areas of nodularity. Spleen does not appear enlarged. There is no abdominal mass or ascites noted and there is no inguinal adenopathy, Extremities - No edema, Neurologic - No focal neurologic deficits noted. Lab/Imaging: Test performed on Jul 22, 2020 14:20 Glucose 90 mg/dL BUN 16 mg/dL Creatinine 0.81 mg/dL Cr Clearance (Est) 91.73 mL/min Sodium 136 mmol/L Potassium 4.1 mmol/L Chloride 101 mmol/L CO2 27 mmol/L Calcium 9.2 mg/dL Protein, Total 6.3 g/dL Albumin 3.4 g/dL Bilirubin, Total 0.2 mg/dL Alkaline Phosphatase 264 IU/L AST (SGOT) 15 IU/L ALT (SGPT) 12 IU/L WBC 13.8 10^9/L RBC 3.03 10^12/L HGB 8.8 g/dL HCT 28.8 % MCV 95.0 fl MCH 29.0 pg MCHC 30.6 g/dL RDW 16.2 % Platelet Count 395 10^9/L MPV 8.8 fL Neutrophils (Gran) 10.26 10^9/L Lymphocytes 2.13 10^9/L Monocytes 1.21 10^9/L Eosinophils 0.03 10^9/L Basophils 0.06 10^9/L Manual Lymphocytes 15 % Manual Monocytes 9 % Manual Eosinophils 0 % Manual Basophils 0 % Historic Problem List: 1. Poorly differentiated neuroendocrine carcinoma involving the hilar region of the right lung, stage IVB (T3, N3, M1c). The tumor appeared to be high-grade, but it was described as a large cell neoplasm. 2. Her initial clinical course was complicated by acute renal failure, presumably due to acute tubular necrosis, requiring hemodialysis. 3. She also developed atrial fibrillation and acute diastolic congestive heart failure. 4. She began a trial of chemotherapy with carboplatin/etoposide on 04/17/2020 with the chemotherapy doses adjusted for the renal failure/dialysis. 5. Her further hospital course was complicated by left forearm abscess, requiring I&D on 04/26/2020. Problems Addressed with this Encounter and Plan: 1. Poorly differentiated neuroendocrine carcinoma involving the hilar region of the right lung, stage IVB (T3, N3, M1c). The diagnosis was established by liver biopsy on 04/11/2020. Her initial clinical course was complicated by acute renal failure, requiring dialysis. On 04/17/2020 she began a trial of chemotherapy with carboplatin/etoposide. She has completed 4 cycles of treatment. She appeared to be showing some response on restaging chest CT after 2 cycles, and during that time she did have recovery of her renal function. Her current CT scans, though, are showing definite evidence of disease progression. The CT findings were reviewed with the patient and I also reviewed the CT images with her. She will need to transition out to second line therapy, and I will have her start a trial of therapy with lubrinectedin, but that will be subject to verification of insurance coverage. In the meantime, I have also requested a next generation sequencing study on her biopsy to determine whether or not she may be eligible for any other salvage therapies. 2. Cancer related pain which appears to be associated with the hepatic metastatic disease. She is not getting adequate relief with her current pain medication, and she will now be given a prescription for immediate release oxycodone 10 mg to take up to every 4 hours as needed. She also will be given a prescription for benzonatate for her cough. Signed By: Александр Nguyen M.D. <<Signature on File>>
--- NOTE | 2020-08-07 | MR_ITS ---
WS: [id number] MRI BRAIN WITH AND WITHOUT CONTRAST HISTORY: LUNG CANCER, RIGHT ARM WEAKNESS AND LOSS OF FUNCTION COMPARISON: None available. TECHNIQUE: Multiplanar imaging performed through the brain with Prohance 17 ml's IV. Innumerable metastatic lesions throughout the brain. These enhancing lesions involve both the suprate ntorial brain in the infratentorial brain. There is also an area of enhancement suspected within the ezequiel and the RIGHT midbrain. These enhancing lesions range in size from a few millimeters with the la rgest measuring 22 x 27 mm and extending over superior inferior diameter of 26 mm. The largest lesion in the LEFT frontoparietal junction. Large amount of surrounding vasogenic edema at the LEFT frontop arietal junction. No significant midline shift. No acute infarct. Ventricles are normal size. No inferior displacement of cerebellar tonsils. Paranasal sinuses: Mucous retention cyst in the floor the RIGHT maxillary sinus. Mastoid air cells: Small bilateral air cell effusions. Calvarium and scalp: No metastatic disease is identified. MR/MR head wo/w con [id number] IMPRESSION: 1. Innumerable metastatic lesions throughout the brain. Metastatic lesions are noted within the supratentorial and infratentorial brain and including the RIG HT midbrain and possibly the ezequiel. 2. Largest mass with significant vasogenic edema is in the LEFT frontoparietal region measuring 22 x 27 x 26 mm.
--- NOTE | 2020-08-07 | CT_ITS ---
Radiation Therapy Planning CT images; total exam DLP: 369.54 mGy-cm MTDD
--- NOTE | 2020-08-07 10:53 | N.ONRAD NP_ITS ---
Radiation Oncology Consultation Patient Name: Pamela Jack Date of : 1955 Date of Service: 08/07/2020 Attending Physician: Brandon Norman M.D. Pamela Jack was seen in consultation this morning at the request of Александр Nguyen M.D. for consideration of palliative cranial radiotherapy for the management of her extensive stage small cell lung cancer with newly diagnosed brain metastases. I reviewed (in the EMR - [employer]) the patient's initial emergency department visit in March 2020 after presenting with shortness of breath). A thoracoabdominopelvic CT revealed a right hilar mass with numerous metastatic lesions throughout the ipsilateral and contralateral lungs, hilar and mediastinal lymphadenopathy, metastatic liver lesions and abdominal omental implants. A liver biopsy diagnosed a poorly differentiated metastatic carcinoma with neuroendocrine differentiation. She received 4 cycles of carboplatin and etoposide (04/17/2020 through 07/02/2020). A CT obtained on August 02, 2019 demonstrated progressive disease (bone, liver, and lung). An MRI of the brain (independently visualized in [facility]) ordered on account of new onset right upper extremity weakness identified innumerable metastatic lesions within the infra and supratentorial brain (largest lesion measuring 2.7 cm in the left fronto-parietal junction). Following a discussion concerning Ms. Jack's MR, an palliative cranial radiotherapy is warranted. I would recommend a two week course of radiotherapy. A computed tomographic radiotherapy planning scan in the treatment position will be performed to identify the clinical tumor volume. She will be prescribed a glucocorticoid for cerebral edema and a proton pump inhibitor prophylactically. The potential toxicities of whole brain radiotherapy were reviewed. The patient has verbalized understanding would like to proceed as recommended. Signed by: Dr. Brandon Norman 08/07/2020 10:51:55 AM
--- NOTE | 2020-08-08 07:07 | ONC FU_ITS ---
Dr. Nguyen Patient Follow-Up Note Patient: Pamela Jack < Unit #: [id number]: 1955 Dicatated By: Александр Nguyen M.D.Date of Visit:Aug 07, 2020 Onc Med Follow-up/Prog Note Chief Complaint: Lung cancer. 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 On 04/08/2020 she was admitted to the hospital after presenting to the emergency room with shortness of breath and weakness. CT scan to the chest, abdomen, and pelvis showed a large right hilar and suprahilar mass measuring 4.1 x 4.5 x 6.1 cm. There was compression of the distal right main pulmonary artery and partial occlusion of the right upper lobe and right middle lobe pulmonary arteries. There were adjacent satellite nodules with soft tissue thickening along the anterior chest wall and mediastinum. The supra hilar mass was noted to extend into the anterior mediastinum measuring 3.2 x 3.3 cm. There was bilateral hilar and subcarinal lymphadenopathy. There was evidence of postobstructive pneumonia in the right middle lobe and right lower lobe with compression of the distal right mainstem bronchus. There was moderate right pleural effusion. Numerous metastatic nodules were noted in the left lower lobe, the largest measuring 2 cm, and there were additional smaller metastatic lesions in the left upper lobe. There were innumerable enhancing masslike lesions throughout both hepatic lobes compatible with metastatic disease. The adrenal glands appeared normal. There are multiple subcentimeter metastatic peritoneal implants in the upper and mid abdomen. On 04/11/2020 she underwent ultrasound directed FNA biopsy of the liver. 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 The Ki-67 was strongly positive at 100%. Her clinical course was complicated by acute renal failure, presumed to be due to acute tubular necrosis, though a specific underlying cause for that was never really determined. She did require hemodialysis. During that time she also developed atrial fibrillation and acute diastolic congestive heart failure. The atrial fibrillation converted with medication. I had seen her initially as an inpatient on 04/14/2020. In the setting of advanced stage neuroendocrine lung cancer, she was recommended to undergo a trial of chemotherapy with carboplatin/etoposide. Her initial management was complicated by the renal failure and dialysis. She began cycle 1 on 04/17/2020, and she was able to tolerated with acceptable toxicity. Her further hospital course was complicated by left forearm abscess, for which she underwent an I & D procedure. She was discharged from the hospital on 05/01/2020. She then continued with cycle 2 on 05/21/2020, with cycle 3 on 06/10/2020, and with cycle 4 on 07/02/2020. During that time, she did have recovery of her renal function. A restaging chest CT on 06/03/2020 showed some decrease in the right hilar mass/lymphadenopathy and decreased right pleural effusion. Bilateral pulmonary nodules and left hilar lymphadenopathy appeared unchanged. Multiple metastatic lesions were again noted in the liver and there were new areas of bony sclerosis. She has no significant past medical or past surgical history. She has a history of smoking 1 1/2 packs of cigarettes daily for 45 years. She has had significant alcohol use, but she had quit drinking 3-4 months prior to the hospitalization. INTERIM HISTORY: I had seen her for a follow-up visit on 07/23/2020. At that point she did appear to be showing some decline in performance status, and her restaging CT scans of the chest, abdomen, and pelvis on 08/02/2020 showed evidence of progressed pulmonary metastatic disease, progressed right hilar, anterior mediastinal, and subcarinal lymphadenopathy, progression of hepatic metastatic disease and upper abdominal peritoneal implants, and progression of bony metastatic disease. With those findings, she was recommended to transition to second line chemotherapy lubrinectedin. In the meantime, she had called yesterday reporting new onset of right arm weakness. This had first started on Wednesday and it gradually worsened over the weekend, to the point that he has has basically become nonfunctional. She was scheduled for a brain MRI on an urgent basis, and that study shows innumerable metastatic lesions throughout the brain, the largest in the left frontoparietal region measuring 2.2 x 2.7 x 2.6 cm. Medications: Albuterol Sulfate 2 Puff(s) (of 108 (90 base) mcg/act) Aerosol Powder, Breath Activated Inhalation q 4 to 6 hours PRN, Anoro Ellipta 1 Inhalation (of 62.5-25 mcg/inh) Aerosol Powder, Breath Activated Inhalation daily, Bumex 1 (1 mg) Tablet Oral b.i.d., LORazepam 0.5 - 1 Tablet (of 1 mg) Oral t.i.d. PRN, Prochlorperazine Maleate 1 Tablet (of 10 mg) Oral q 4 hours PRN Allergies: Linezolid Vital Signs: Performed on Aug 07, 2020 10:23 Height - 65.00 in Weight - 177.4 lbs Temperature - 98.4 F Pulse - 92 Respiration - 20 BP - 133/83 mm(hg) O2 Sat - 97 % Pain - 6 Performed on Aug 07, 2020 10:23 BMI - 29.521 kg/m2 (HIGH) Physical Examination: Constitutional - She appears somewhat weak generally, Eyes - Sclerae nonicteric. Conjunctivae clear, ENMT - No lesions noted in the oral cavity, Hematologic/Lymphatic - No cervical, clavicular, or axillary adenopathy, Respiratory - Lungs show diminished air movement bilaterally, Cardiovascular - Heart rhythm is regular. There is no murmur, gallop, or rub noted, Abdomen - Soft with no mass or hepatosplenomegaly noted, Extremities - No edema, Neurologic - She has developed significant right arm weakness. The right leg appears to be only minimally affected. Problem List: 1. Poorly differentiated neuroendocrine carcinoma involving the hilar region of the right lung, stage IVB (T3, N3, M1c). The tumor appeared to be high-grade, but it was described as a large cell neoplasm. 2. Her initial clinical course was complicated by acute renal failure, presumably due to acute tubular necrosis, requiring hemodialysis. 3. She also developed atrial fibrillation and acute diastolic congestive heart failure. 4. She began a trial of chemotherapy with carboplatin/etoposide on 04/17/2020 with the chemotherapy doses adjusted for the renal failure/dialysis. 5. Her further hospital course was complicated by left forearm abscess, requiring I&D on 04/26/2020. Problems Addressed with this Encounter and Plan: 1. Poorly differentiated neuroendocrine carcinoma involving the hilar region of the right lung, stage IVB (T3, N3, M1c). The diagnosis was established by liver biopsy on 04/11/2020. Her initial clinical course was complicated by acute renal failure, requiring dialysis. On 04/17/2020 she began a trial of chemotherapy with carboplatin/etoposide. She has completed 4 cycles of treatment. She appeared to be showing some response on restaging chest CT after 2 cycles, and during that time she did have recovery of her renal function. Her restaging CT scans on 08/02/2020 showed obvious disease progression, and with those findings she had been recommended to proceed with second line therapy with lubrinectedin. In the meantime, she developed new onset of right arm weakness and her brain MRI today shows innumerable metastatic lesions. The findings were reviewed with the patient and I also reviewed the MRI images. We discussed the fact that the overall prognosis with her cancer now is very poor, particularly in view of the fact that her systemic disease is also progressing and the likelihood of benefit with second line chemotherapy is not going to be very good. She may benefit with palliative whole brain radiation, but it will be short-term, and the overall prognosis remains poor even with treatment. Nonetheless, she is motivated to continue treating this. I have reviewed the MRI with Dr. Norman, and he will see her today to begin palliative whole brain radiation. In the meantime, she will be given dexamethasone 10 mg IV today and she will continue oral dexamethasone 4 mg 4 times daily. I will see her again for further discussion of second line chemotherapy when she has completed radiation. 2. She has cancer related pain which appears to be associated with the hepatic metastatic disease. At the present time it is being managed adequately with her medication. Signed By: Александр Nguyen M.D. <<Signature on File>>
--- NOTE | 2020-08-12 11:20 | ONCRAD TMN_ITS ---
Radiation Oncology Treatment Management Note Patient Name: Pamela Jack Date of : 1955 Date of Service: 08/12/2020 Attending Physician: Brandon Norman M.D. Pamela Jack is a 65 year old white female diagnosed with extensive stage cell lung cancer (March 2020) and newly diagnosed brain metastases. The patient has received 9 Gy of a prescribed 30 Flores with a 3-dimensional conformal radiotherapy plan utilizing a half beam block treatment technique with opposed lateral portal hurt. Upon review of systems, she reported improvement in her left upper extremity weakness. On physical examination, the patient weighed 176 lbs. Her temperature was 98.7 ???F with a blood pressure of 100/70 mmHg. Her pulse was 153 bpm and the respiratory rate was 20. Cranial nerves were intact. There was no thrush in the oropharynx. Continue whole brain radiotherapy as planned. I will begin a glucocorticoid taper. Signed by: Dr. Brandon Norman 08/12/2020 11:19:38 AM
[2020-08-15] MEDS: sodium chloride 0.9% 500 ML 75 ML IV (09:50)
[2020-08-15 10:55] LABS: Hematocrit 33.9 % (37.0-47.0); Hemoglobin 10.6 g/dL (11.5-15.3); Mean Corpuscular HGB Conc 31.3 g/dL (30.0-36.0); Mean Corpuscular Hemoglobin 29.8 pg (28.0-34.0); Mean Corpuscular Volume 95.2 fL (81-99); Mean Platelet Volume 9.8 fL (7.4-10.4); Platelet Count 300 10^3/cmm (130-400); Red Blood Count 3.56 10^6/uL (4.1-5.3); Red Cell Distribution Width 15.7 % (12.1-15.1); Slide Review Slide Review Perform; White Blood Count 21.5 10^3/uL (4.0-10.0)
[2020-08-15 10:57] LABS: Absolute Eosinophils 0.6 10^3/cmm (0.0-0.7); Absolute Neutrophil 19.6 10^3/cmm (1.4-6.5); Absolute Segmented Neutrophil 18.7 10/cmm (1.6-7.1); Band Neutrophils Absolute 0.9 10^3/cmm (0.0-1.2); Eosinophils 3 %; Giant Platelets Trace; Lymphocytes 3 %; Monocytes Absolute 0.6 10^3/cmm (0.1-0.6); Platelet Estimate Normal (Normal); Segmented Neutrophils 87 %; Total Cells Counted 100 (0-100)
[2020-08-15 10:59] LABS: Alanine Aminotransferase 83 U/L (0-33); Albumin Level 3.3 g/dL (3.5-5.2); Alkaline Phosphatase 247 IU/L (35-105); Anion Gap 17.6 (5-19); Aspartate Amino Transferase 41 U/L (0-32); Blood Urea Nitrogen 31 mg/dL (8-23); Calcium 8.7 mg/dL (8.5-10.5); Carbon Dioxide 29 mmol/L (22-29); Chloride 96 mmol/L (98-107); Globulin 2.7 g/dL (1.3-4.6); Glomerular Filtration Rate 72.4 mL/min (90-130); Glucose 132 mg/dL (65-115); Osmolality Calculated 296 mOsm/kg (285-295); Potassium 3.6 mmol/L (3.5-5.1); Sodium 139 mmol/L (136-145); Total Bilirubin 0.3 mg/dL (0.15-1.2)
== END 2020-08-18 23:59 | disposition home or self-care (01) ==
LOC: ONCMED 05:34
PROVIDERS: Internal Medicine Medical Oncology; PCP Nurse Practitioner Family; Visit Provider Radiology Radiation Oncology
DX: Z51.0 Encounter for antineoplastic radiation therapy (principal); C34.01 Malignant neoplasm of right main bronchus; C79.31 Secondary malignant neoplasm of brain; C77.1 Secondary and unspecified malignant neoplasm of intrathoracic lymph nodes; C78.7 Secondary malignant neoplasm of liver and intrahepatic bile duct; N17.0 Acute kidney failure with tubular necrosis; Z99.2 Dependence on renal dialysis; I48.91 Unspecified atrial fibrillation; I50.31 Acute diastolic (congestive) heart failure; L02.414 Cutaneous abscess of left upper limb; Z79.899 Other long term (current) drug therapy
CPT/HCPCS: 36591; 70553; 77280; 77290; 77295; 77300; 77334; 77336; 77412; 77417; 80053; 85007; 85025; 96360; 96365; 99205; 99214; 99215; A9579; J1100; J7040

== ENCOUNTER 2020-08-19 06:26 | Outpatient (RCR) | payer MEDICAID, SELFPAY ==
--- NOTE | 2020-08-19 09:40 | ONCRAD TMN_ITS ---
Radiation Oncology Treatment Management Note Patient Name: Pamela Jack Date of : 1955 Date of Service: 08/19/2020 Attending Physician: Brandon Norman M.D. Pamela Jack is a 65 year old white female diagnosed with extensive stage cell lung cancer (March 2020) and newly diagnosed brain metastases. The patient has received 21 Gy of a prescribed 30 Flores with a 3-dimensional conformal radiotherapy plan utilizing a half beam block treatment technique with opposed lateral portal hurt. Upon review of systems, she reported continued improvement in her left upper extremity weakness. On physical examination, the patient weighed 181 lbs. Her temperature was 97.8 ???F with a blood pressure of 114/83 mmHg. Her pulse was 175 bpm and the respiratory rate was 22. Cranial nerves were intact. There was no thrush in the oropharynx. Continue whole brain radiotherapy as prescribed. Patient refused to go to ED (rapid pulse). Signed by: Dr. Brandon Norman 08/19/2020 9:39:06 AM
== END 2020-08-19 13:00 | disposition home or self-care (01) ==
LOC: ONCMED 06:26
PROVIDERS: PCP Nurse Practitioner Family; Visit Provider Radiology Radiation Oncology
DX: Z51.0 Encounter for antineoplastic radiation therapy (principal); C79.31 Secondary malignant neoplasm of brain; C34.01 Malignant neoplasm of right main bronchus; R53.1 Weakness
CPT/HCPCS: 77412

== ENCOUNTER 2020-08-19 13:40 | Inpatient (IN) | payer MEDICAID, SELFPAY ==
[2020-08-19] VITALS (27 sets, daily range): BP systolic 62–189; BP diastolic 45–133; PULSE 77–183; RESP 16–28; TEMP 36.6–36.8; O2SAT 83–100; BMI 29.1
--- NOTE | 2020-08-19 | US_ITS ---
WS: [id number] ULTRASOUND SOFT TISSUES RIGHT thorax. HISTORY: FLUID SEEN ON X-RAY COMPARISON: Radiograph 08/19/2020. TECHNIQUE: 2-D and color Doppler imaging is submitted. There is a small to moderate RIGHT pleural effusion. There are low-level echoes within the pleural fl uid. No increased vascularity. US/US chest [id number] IMPRESSION: Small to moderate minimally complex RIGHT pleural effusion.
[2020-08-19] MEDS: adenosine 3 mg/mL SDV 2mL 6 MG IVP (13:49)
--- NOTE | 2020-08-19 13:49 | XRR_ITS ---
PROCEDURE INFORMATION: Exam: XR Chest, 1 View Exam date and time: 08/19/2020 2:22 PM Age: 65 years old Clinical indication: Shortness of breath; Additional info: SOB TECHNIQUE: Imaging protocol: XR of the chest Views: 1 view. COMPARISON: CT chest abd pel w con* 08/02/2020 9:43 AM FINDINGS: Lungs: Interstitial densities seen in the left lower lobe . These findings are nonspecific Pleural spaces: There is a moderate volume right lower lobe pleural effusion. No pneumothorax. Heart/Mediastinum: Unremarkable. No cardiomegaly. Bones/joints: Unremarkable. A left central line is in place extending into the SVC. XR/XR chest 1V portable [id number] IMPRESSION: 1. Right lower lobe pleural effusion 2. Left central line extends to the SVC 3. Nonspecific left lower lobe interstitial congestion.
[2020-08-19] MEDS: adenosine 3 mg/mL SDV 2mL 12 MG IVP (13:51)
--- NOTE | 2020-08-19 13:52 | ECG_ITS ---
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 Measurements Intervals [place] Rate: 98 P: 47 FL: 131 QRS: 64 QRSD: 78 T: 83 QT: 345 QTc: 442 Interpretive Statements SINUS RHYTHM WITH FREQUENT SUPRAVENTRICULAR PREMATURE COMPLEXES MODERATE ST DEPRESSION [0.05+ mV ST DEPRESSION] Compared to ECG 04/20/2020 09:32:43 ST (T wave) deviation now present Sinus arrhythmia no longer present T-wave abnormality no longer present Electronically Signed On 08-19-2020 15:10:11 [employer] by Jonah Velásquez M.D. [email or web address]
--- NOTE | 2020-08-19 14:00 | PC.NURSE ---
RT at bedside, placed on Bipap.
[2020-08-19] MEDS: labetalol 5 mg/mL SDV 20mL 20 MG IVP (14:05)
--- NOTE | 2020-08-19 14:11 | PC.NURSE ---
Dr Wilson at bedside and suggests cardioversion
[2020-08-19 14:15] LABS: Basophils % 0.1 %; Hemoglobin 10.8 g/dL (11.5-15.3); Lymphocytes # 0.5 10^3/uL (0.8-4.8); Lymphocytes % 2.9 %; Mean Corpuscular HGB Conc 30.9 g/dL (30.0-36.0); Mean Corpuscular Hemoglobin 29.8 pg (28.0-34.0); Mean Corpuscular Volume 96.7 fL (81-99); Mean Platelet Volume 9.8 fL (7.4-10.4); Monocytes # 0.8 10^3/uL (0.2-0.9); Monocytes % 4.7 %; Neutrophils # 16.24 10^3/uL (1.8-7.7); Neutrophils % 91.1 %; Nucleated Red Blood Cells % 0 %; Platelet Count 308 10^3/cmm (130-400); Red Blood Count 3.62 10^6/uL (4.1-5.3); Red Cell Distribution Width 16.1 % (12.1-15.1); White Blood Count 17.8 10^3/uL (4.0-10.0)
--- NOTE | 2020-08-19 14:21 | USCV_ITS ---
Pamela Jack Age: 65 Gender: F : 1955 Exam Date: 08/19/2020 14:38 Ordering Phys: Jonathan Wilson MD ([email or web address]) Technologist: Yelena Bardales Exam Location: [facility] [place] Indication: SVT BP: 86 / 58 HR: 92 Rhythm: Sinus Technical Quality: Very technically difficult study MEASUREMENTS (Male / Female) Normal Values 2D ECHO LV Diastolic Diameter PLAX 3.5 cm 4.2 - 5.9 / 3.9 - 5.3 cm LV Systolic Diameter PLAX 1.8 cm LV Chamber Size 3.4 cm IVS Diastolic Thickness 1.2 cm 0.6 - 1.0 / 0.6 - 0.9 cm IVS Systolic Thickness 1.3 cm LVPW Diastolic Thickness 1.5 cm 0.6 - 1.0 / 0.6 - 0.9 cm LVPW Systolic Thickness 1.8 cm RV Chamber Size 3.9 cm LVOT Diameter 2.0 cm LV Ejection Fraction 2D Teich 80.2 % LV Ejection Fraction MOD 2C 33.3 % LV Ejection Fraction 2C AL 41.5 % LA Diameter 4.0 cm LA Width 3.2 cm LA Height 4.4 cm RA Width 3.3 cm RA Height 4.9 cm Aorta at Sinotubular Diameter 3.1 cm M-MODE LV Diastolic Diameter MM 4.6 cm 4.2 - 5.9 / 3.9 - 5.3 cm LV Systolic Diameter MM 2.6 cm LV Ejection Fraction MM Teich 74.9 % IVS Diastolic Thickness MM 1.4 cm 0.6 - 1.0 / 0.6 - 0.9 cm IVS Systolic Thickness MM 1.3 cm LVPW Diastolic Thickness MM 1.4 cm 0.6 - 1.0 / 0.6 - 0.9 cm LVPW Systolic Thickness MM 2.3 cm RV Diastolic Diameter MM 1.9 cm Aortic Annulus Diameter 3.5 cm LA Ao Ratio MM 1.3 MV E Point Septal Separation 0.3 cm DOPPLER AV Peak Velocity 111.0 cm/s LVOT Peak Velocity 84.0 cm/s AV Area Cont Eq vti 2.0 cm squared AV Area Cont Eq pk 2.5 cm squared MV Area PHT 4.9 cm squared Mitral E to A Ratio 2.1 MV E' Velocity 50.0 cm/s Mitral E to MV E' Ratio 10.8 Mitral E to LV E' Lateral Ratio 11.7 Mitral E to LV E' Septal Ratio 10.2 TR Peak Velocity 181.2 cm/s TR Peak Gradient 13.1 mmHg TR Mean Velocity 148.7 cm/s TR Mean Gradient 9.5 mmHg TR Velocity Time Integral 47.7 cm TV Peak E Velocity 43.0 cm/s Right Atrial Pressure 3.0 mmHg Pulmonary Artery Systolic Pressu 16.1 mmHg PV Peak Velocity 86.0 cm/s RV Acceleration Time 0.1 s RV Ejection Time 0.3 s RV AcT/ET 0.4 FINDINGS Left Ventricle Normal left ventricular cavity size. Normal left ventricular systolic function. Left ventricular ejection fraction is estimated at 55 %. Grade II/IV diastolic dysfunction, moderately elevated filling pressures. Right Ventricle The right ventricle is normal in size and function. Right Atrium The right atrium is normal in size. Left Atrium The left atrium is normal in size. Mitral Valve Moderately thickened mitral valve. Moderate mitral annular calcification. No mitral valve stenosis. No mitral valve regurgitation. Aortic Valve Moderate aortic valve calcification. No aortic valve stenosis. No aortic valve regurgitation. Tricuspid Valve Mild tricuspid valve regurgitation. Pulmonic Valve Structurally normal pulmonic valve without significant stenosis. There is no pulmonic regurgitation. Pericardium Normal pericardium without effusion. Aorta Normal ascending aorta dimension. CONCLUSIONS 1-Normal left ventricular cavity size. Normal left ventricular systolic function. Left ventricular ejection fraction is estimated at 55 %. Grade II/IV diastolic dysfunction, moderately elevated filling pressures. 2-Moderately thickened mitral valve. Moderate mitral annular calcification. No mitral valve stenosis. No mitral valve regurgitation. 3-Moderate aortic valve calcification. No aortic valve stenosis. No aortic valve regurgitation. 4-There is no pericardial effusion. 5-Right atrial pressure is around 5 mm of mercury. 6-No significant change since the prior echocardiogram study of 03/09/20. Jonathan Wilson MD (Electronically Signed) Final Date: 19 August 2020 18:41 S
--- NOTE | 2020-08-19 14:23 | PC.NURSE ---
cardioversion performed at 120jules. 1 shock delivered. pt had successful rhythm change. ER physician and medication aide at bedside. 2nd EKG performed to confirm change
[2020-08-19 14:32] LABS: Lactate (Lactic Acid level) 2.2 mmol/L (0.5-2.2)
[2020-08-19 14:42] LABS: Alanine Aminotransferase 107 U/L (0-33); Albumin Level 3.3 g/dL (3.5-5.2); Alkaline Phosphatase 239 IU/L (35-105); Anion Gap 14.1 (5-19); Aspartate Amino Transferase 45 U/L (0-32); Blood Urea Nitrogen 39 mg/dL (8-23); Calcium 8.8 mg/dL (8.5-10.5); Carbon Dioxide 31 mmol/L (22-29); Chloride 99 mmol/L (98-107); Globulin 2.1 g/dL (1.3-4.6); Glucose 125 mg/dL (65-115); Magnesium 2.5 mg/dL (1.7-2.3); NT Pro B Type Natriuretic Pept 5780 pg/mL (0-125); Osmolality Calculated 301 mOsm/kg (285-295); Phosphorus 4.6 mg/dL (2.5-4.5); Potassium 4.1 mmol/L (3.5-5.1); Sodium 140 mmol/L (136-145); Thyroid Stimulating Hormone 0.57 uIU/mL (0.27-4.20); Total Bilirubin 0.2 mg/dL (0.15-1.2); Total Protein 5.4 g/dL (6.6-8.7)
[2020-08-19 14:44] LABS: Alcohol Level < 10 mg/dL (0-10)
[2020-08-19 15:07] LABS: ABG PCO2 42.4 mmHg (35-45); ABG PH Result 7.44 (7.35-7.45); Arterial Blood Gas Hematocrit 33.9 % (37-47); Base Excess ABG 3.8 mmol/L (-2.0-2.0); Blood Gas Allen Test Pos; Blood Gas Operator Identificat MONRO; Blood Gas Sample Site Radial, right; Blood Gas Sample Type Arterial; Carboxyhemoglobin 2.5 %THgb (0.4-20.1); HCO3 ABG 28.5 mmol/L (22-26); HGB O2 Sat 95.7 % (95-100); Methemoglobin 0.8 % (0.4-1.5); Oxygen Device BIPAP; PO2 ABG 96.5 mmHg (80.0-100.0); Total Hemoglobin 11.1 g/dL (12-16)
--- NOTE | 2020-08-19 15:13 | PM.HP ---
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, stageIVB, disease progression right hilar, anterior mediastinal, subcarinal lymphadenopathy,, innumerable metastatic brain lesions, l hepatic metastasis, pulmonary metastatic disease, upper abdominal peritoneal implants, bony metastatic disease, developed acute renal failure ATN requiring hemodialysis, has received chemotherapy carboplatin etoposide, currently receiving whole brain radiation, history of atrial fibrillation was on Eliquis but told to stop, acute diastolic CHF, who presents to [facility] from [facility] due to concerns for fast heart rate. Patient tells me that this morning she was receiving whole brain radiation at radiation oncology, she was driving back home, when she noticed her heart rate felt fast, had chest pain, palpitations. She presented to the [facility] weight over the clinic, where she was found to have SVT, and told to come to the emergency room. In the emergency room patient was found to have SVT, was given multiple rounds of adenosine, Cardizem, labetalol, however did not convert to normal sinus rhythm. Patient received cardioversion, which shocked back to normal sinus rhythm. Currently normal sinus rhythm. She also had complaints of shortness of breath as soon as she came to the emergency room doors, was placed on BiPAP, currently doing well with the BiPAP. Tells me that she is smoking, she has a history of COPD, does use inhalers at home. Denies any recent fevers, no chills, no recent exposure to COVID-19. Denies a cardiovascular history, no history of CAD. No history of strokes. Currently tolerating the BiPAP well, able to speak with me, follows commands. She currently feels a bit drowsy after cardioversion. Review of Systems Const: Denies: fever(s), chills, fatigue or malaise Eyes: Denies: change in vision or blurry vision ENMT: Denies: nasal congestion Card: Reports: chest pain, palpitations and irregular heart rhythm Resp: Denies: dyspnea, productive cough, non-productive cough or wheezing GI: Denies: abdominal pain, nausea, vomiting, hematemesis, diarrhea, constipation, hematochezia or melena : Denies: flank pain, dysuria or urinary frequency Musc: Denies: neck pain or back pain Skin/Breast: Denies: rash Neuro: Denies: headache(s), dizziness or vertigo Psych: Denies: anxiety or depression Endo: Denies: polyuria or polydipsia Medications/Allergies Home Medications Medication Instructions Recorded Confirmed Last Taken Type amiodarone [Pacerone] 200 mg PO DAILY #30 tab 04/30/20 08/19/20 08/19/20 Rx benzonatate 100 mg PO TID PRN #15 cap 04/30/20 08/19/20 Unknown Rx hydrocodone-acetaminophen [[place]] 1 tab PO Q6H PRN #28 tab 05/16/20 08/19/20 Unknown Rx bumetanide 1 mg tablet 1 mg PO BID #60 tab 06/19/20 08/19/20 Unknown Rx tiotropium 2.5 mcg-olodaterol 2.5 2 puff INHALATION DAILY #4 g 07/01/20 08/19/20 08/19/20 Rx mcg/actuation mist for inhalation dexamethasone 4 mg PO DAILY 08/19/20 08/19/20 Unknown History fluconazole 100 mg PO DAILY 08/19/20 08/19/20 08/19/20 History furosemide [Lasix] 40 mg PO DAILY 08/19/20 08/19/20 08/19/20 History levofloxacin See Rx Instructions .ROUTE .COMPLEX 08/19/20 08/19/20 08/19/20 History omeprazole 20 mg PO DAILY 08/19/20 08/19/20 Unknown History oxycodone 10 mg PO Q4H PRN 08/19/20 08/19/20 Unknown History Allergies Allergy/AdvReac Type Severity Reaction Status Date / Time linezolid Allergy ALGY-Difficulty Verified 06/19/20 14:47 Breathing PFSH Acute PFSH: Medical History Abscess Acute diastolic heart failure Acute kidney injury Hyponatremia Malignant neoplasm of right main bronchus Metastatic lung cancer (metastasis from lung to other site) New onset atrial fibrillation Orthopnea Polydipsia Sepsis Sepsis with acute hypoxic respiratory failure Spontaneous tumor lysis syndrome Surgical History Hx of drainage of abscess (04/26/20) S/P dialysis catheter insertion (~04/26/20) Family History Mother CAD (coronary artery disease) Social History Smoking and tobacco status: current every day smoker cigarettes Packs smoked per day: 1.5 [ Other cigarette details: 1.5ppd x 45 ] Quit status (tobacco): considering quitting Second hand smoke exposure: No Smoking risk assessment/counseling performed?: Yes Alcohol intake: former Other details last alcohol use: She has a long history of alcohol use which had increased over the past 10 years up to 12 pack of beer per day. She quit 3 to 4 months ago. Caregiver/support person: Yes Lives independently: Yes Household members: family Housing: House Marital status: / Current occupational status: disabled History of recent travel: No Current gender identity: Female Vitals/I&O/Wt Last Vital Signs Temp 97.9 F 08/19/20 13:41 Pulse 84 08/19/20 14:31 Resp 19 H 08/19/20 14:31 BP 82/52 08/19/20 14:31 Pulse Ox 97 08/19/20 14:31 Weight last 48 hrs Weight 79.379 kg Physical Exam Const: COMMON NORMALS: no acute distress and patient oriented x3 GENERAL APPEARANCE: frail appearing HENMT: COMMON NORMALS: normocephalic HEAD & SCALP: normocephalic Neck/C-Spine: COMMON NORMALS: no JVD Resp: COMMON NORMALS: normal respiratory effort, No retractions, No use of accessory muscles and clear to auscultation bilaterally AUSCULTATION: crackles Cardio: COMMON NORMALS: no JVD, regular rate, regular rhythm, S1 normal heart sound present and S2 normal heart sound present RATE: regular rate RHYTHM: regular rhythm HEART SOUNDS: S1 normal heart sound present and S2 normal heart sound present GI: COMMON NORMALS: Normal to inspection, nondistended, normoactive bowel sounds present, Soft to palpation, non-tender, No hepatosplenomegaly present, no masses and no bruits PALPATION: Yes Soft to palpation and Yes No hepatosplenomegaly present Extremity: COMMON NORMALS: capillary refill normal, no clubbing, cyanosis or edema and no calf tenderness NARRATIVE EXTREMITY EXAM: 1+ pitting edema Neuro: COMMON NORMALS: patient oriented x3 Psych: COMMON NORMALS: mental status grossly normal Data : 08/19/20 13:58 08/19/20 13:58 A&P Assessment and plan (1) Acute respiratory failure with hypoxia: -No focal pneumonia seen on chest x-ray, white blood cell count 17,000, is immunocompromised -Right pleural effusion -Likely secondary to COPD and diastolic heart failure, possible pneumonia Plan: -Admit to ICU -Continue BiPAP, wean as tolerated -Switch to Solu-Medrol -Lasix 40 IV twice daily -We will preemptively start on broad-spectrum antibiotic therapy, Rocephin and azithromycin given immunocompromise status -Lovenox for DVT prophylaxis -Patient is a DNR/DNI, confirmed with patient at bedside multiple times, she does not want aggressive interventions, she tells me just let me go Status: Acute (2) SVT (supraventricular tachycardia): -Status post adenosine x2, Cardizem, labetalol -Successfully cardioverted -Sinus rhythm, heart rates in the 70s -Echocardiogram currently pending -Cardiology on consult -BNP is over 5000, will give Lasix therapy, creatinine 1.0 Status: Acute (3) COPD (chronic obstructive pulmonary disease): Inhaler therapy Status: Acute Qualifiers: COPD type: unspecified COPD Qualified Code(s): J44.9 - Chronic obstructive pulmonary disease, unspecified (4) Smoker: Status: Acute (5) Recurrent right pleural effusion: Minimal right pleural effusion, no need for drainage at this point Status: Acute (6) New onset of congestive heart failure: Status: Acute (7) Metastatic cancer: Status: Acute Qualifiers: Area of secondary neoplastic involvement: lymph node Lymph node location: intrathoracic region Qualified Code(s): C77.1 - Secondary and unspecified malignant neoplasm of intrathoracic lymph nodes (8) 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, stageIVB, disease progression right hilar, anterior mediastinal, subcarinal lymphadenopathy,, innumerable metastatic brain lesions, l hepatic metastasis, pulmonary metastatic disease, upper abdominal peritoneal implants, bony metastatic disease, developed acute renal failure ATN requiring hemodialysis, has received chemotherapy carboplatin etoposide, -currently receiving whole brain radiation -Currently on Decadron Status: Acute (9) Atrial fibrillation: -Hold amiodarone for now -It seems like patient had a EGD on 04/30/2020 which showed a 1.5 cm duodenal ulcer which appeared to be healing, not actively bleeding, colonoscopy showed a 3 mm sessile polyp in the rectum, her hemoglobin did drop to 7, requiring transfusion, possibly this is a reason why her anticoagulation was discontinued -We will discuss with cardiology the need for anticoagulation, given patient's poor functional status, poor prognosis Status: Acute Attestations Medical Necessity Statement*: Patient requires hospitalization, inpatient, greater than 2 midnights, for acute respiratory failure, SVT Coding Level of Care Code Acute Content Management Consultant for 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
--- NOTE | 2020-08-19 15:23 | ED_ITS ---
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 fib seen in her chart. She comes to the ER complaining of shortness of breath and palpitations since this morning. EMS arrived and found her in supraventricular tachycardia with stable pressure and respiratory status. They gave her 6 of adenosine in route and she refused the 12 dose. MD complaint: rapid heart beat and palpitations Onset (ago): hour(s) Duration: constant Severity: severe Arrhythmia history: atrial fibrillation Associated symptoms: Reports short of breath; Deny anxiety Treatments prior to arrival: adenosine Review of Systems General: Reports: 10 or more systems reviewed and unremarkable except in HPI and below Const: Denies: fatigue Eyes: Denies: change in vision, blurry vision or eye redness ENMT: Denies: throat pain, swelling of lips/tongue, ear or mastoid pain or nasal congestion Card: Denies: chest pain, palpitations, irregular heart rhythm, edema, dyspnea on exertion or orthopnea Resp: Reports: dyspnea; Denies: productive cough or non-productive cough GI: Denies: abdominal pain, diarrhea or GI cramping : Denies: flank pain, difficulty voiding, urinary frequency or urinary urgency Musc: Denies: neck pain, back pain, extremity pain, joint pain, joint redness, limited range of motion or muscle weakness Skin/Breast: Denies: rash, pruritus, erythema, skin pain or skin tenderness Neuro: Denies: headache(s), numbness in extremities, weakness in extremities, sensory changes, difficulty walking, dizziness, confusion or Slurred speech present Psych: Denies: anxiety or depression Endo: Denies: polyuria All/Imm: Denies: urticaria, throat swelling or tongue swelling PFSH ED PFSH: Medical History Abscess Acute diastolic heart failure Acute kidney injury Hyponatremia Malignant neoplasm of right main bronchus Metastatic lung cancer (metastasis from lung to other site) New onset atrial fibrillation Orthopnea Polydipsia Sepsis Sepsis with acute hypoxic respiratory failure Spontaneous tumor lysis syndrome Surgical History Hx of drainage of abscess (04/26/20) S/P dialysis catheter insertion (~04/26/20) Family History Mother CAD (coronary artery disease) Social History Smoking and tobacco status: current every day smoker cigarettes Packs smoked per day: 1.5 [ Other cigarette details: 1.5ppd x 45 ] Quit status (tobacco): considering quitting Second hand smoke exposure: No Smoking risk assessment/counseling performed?: Yes Alcohol intake: former Other details last alcohol use: She has a long history of alcohol use which had increased over the past 10 years up to 12 pack of beer per day. She quit 3 to 4 months ago. Caregiver/support person: Yes Lives independently: Yes Household members: family Housing: House Marital status: / Current occupational status: disabled History of recent travel: No Current gender identity: Female Physical Exam Const: COMMON NORMALS: no acute distress, average body habitus, patient oriented x3, no limitations, healthy appearing, alert and well nourished GENERAL APPEARANCE: cooperative, comfortable, well kempt and well developed ORIENTATION/CONSCIOUSNESS: Yes awake, Yes oriented to person, Yes oriented to place and Yes oriented to time HENMT: COMMON NORMALS: normocephalic, external ears normal and Normal external nose present HEAD & SCALP: normal to inspection and normocephalic NOSE: Normal external nose present EXTERNAL EAR: Yes external ears normal MOUTH: Normal oral and palatal mucosa present THROAT: posterior oropharynx normal Eye: COMMON NORMALS: Equal, round and reactive pupils present and EOMs intact bilaterally GENERAL EYE: appearance normal, both eyes and all related structures PUPIL: Yes Equal, round and reactive pupils present Neck/C-Spine: COMMON NORMALS: full ROM, no lymphadenopathy, no meningeal signs and no JVD GENERAL: Yes normal visual inspection Lymph: LYMPHATIC: no lymphadenopathy noted Chest: COMMONS NORMALS: normal inspection of the chest and normal palpation of entire chest wall OTHER: Left upper chest port. Resp: EFFORT & INSPECTION: Yes able to speak in complete sentences, Yes tachypneic, Yes respiratory distress, Yes labored, Yes uses accessory muscles and Yes tripod positioning AUSCULTATION: diminished lung sounds OTHER: When she arrived she was breathing fine on nasal cannula oxygen and after failed adenosine, diltiazem, and labetalol she started to become short of breath with each intervention. BiPAP was placed which helped her dyspnea. Cardio: COMMON NORMALS: no JVD RATE: tachycardic (Supraventricular tachycardia rate one sixties to one eighties.) GI: COMMON NORMALS: Normal to inspection, nondistended, normoactive bowel sounds present, Soft to palpation, non-tender and no masses INSPECTION: Yes normal to inspection PALPATION: Yes Soft to palpation : COMMON NORMALS: Yes no CVA tenderness BLADDER/KIDNEY EXAM: Yes no CVA tenderness Back/Pelvis: COMMON NORMALS: no CVA tenderness, thoracic and lumbar spine normal to inspection, no thoracic nor lumbar tenderness and thoraco-lumbar ROM normal Extremity: COMMON NORMALS: normal to inspection, full ROM, capillary refill normal, no joint enlargement and no pedal edema GENERAL: Yes normal exam except as noted Neuro: COMMON NORMALS: patient oriented x3, CN's II-XII intact bilaterally, moves all extremities, no focal motor deficits, no sensory deficits noted and gait normal SENSORIUM/ORIENTATION: Yes alert, Yes oriented to person, Yes oriented to place and Yes oriented to time MENINGEAL SIGNS: Yes no meningeal signs Psych: COMMON NORMALS: mental status grossly normal, Normal thought process present, cooperative, normal affect and speech normal APPEARANCE: Yes well kempt ATTITUDE: Yes calm SPEECH: Yes normal speech THOUGHT PROCESS: Normal thought process present Skin: COMMON NORMALS: no rashes or lesions noted GENERAL SKIN EXAM: no rashes or lesions noted Course Vital Signs: Vital signs: Vital Signs Temperature 97.9 F 08/19/20 13:41 Pulse Rate 96 08/19/20 17:33 Respiratory Rate 26 H 08/19/20 16:24 Blood Pressure 91/68 08/19/20 16:24 Pulse Oximetry 98 08/19/20 17:33 MDM - Arrhythmia/Palpitations MDM Narrative: Medical decision making narrative: The patient came in narrow complex tachycardia likely SVT. She was given 6 and 12 mg of adenosine which did not convert her. Also 2 boluses of diltiazem and a single 20 mg dose of labetalol. All of those failed to convert or change her rhythm or rate. The labetalol did drop her blood pressure from the 130s to the 70s to 80s systolic for a short few minutes. She became short of breath after the adenosine and BiPAP was placed to help her which did help significantly her respiratory status. ABG looks good. I discussed with Dr. Zamora who arrived and we cardioverted the patient. Because of her blood pressure she was not giving any sedation. After the cardioversion she had a normal rhythm which was sometimes sinus, sometimes A. fib and other irregular rhythms. As the antiarrhythmics wore off she started to become tachycardic again and was started on an amiodarone drip. She remained stable in and out of short bursts of SVT. I discussed with Dr. Zamora who recommended no intervention unless her blood pressure dipped significantly. Her blood pressure remained stable and she remained stable on the BiPAP and has been alert her the entire time in the ED. She was admitted to the ICU in stable condition. She admitted to not taking her metoprolol at home as well. Lab Data: Labs: Lab Results 08/19/20 08/19/20 08/19/20 Range/Units 13:58 13:58 13:58 WBC 17.8 H (4.0-10.0) 10^3/ uL RBC 3.62 L (4.1-5.3) 10^6/u L Hgb 10.8 L (11.5-15.3) g/dL Hct 35.0 L (37.0-47.0) % MCV 96.7 (81-99) fL MCH 29.8 (28.0-34.0) pg MCHC 30.9 (30.0-36.0) g/dL RDW 16.1 H (12.1-15.1) % Plt Count 308 (130-400) 10^3/c mm MPV 9.8 (7.4-10.4) fL Neut % (Auto) 91.1 % Lymph % (Auto) 2.9 % [place] % (Auto) 4.7 % Eos % (Auto) 0.0 % Baso % (Auto) 0.1 % Neut # (Auto) 16.24 H (1.8-7.7) 10^3/u L Lymph # (Auto) 0.5 L (0.8-4.8) 10^3/u L [place] # (Auto) 0.8 (0.2-0.9) 10^3/u L Eos # (Auto) 0.0 (0.0-0.8) 10^3/u L Baso # (Auto) 0.0 (0.0-0.1) 10^3/u L Nucleated RBC % (a uto) 0 % Nucleated RBCs # 0.0 /100WBC Sodium 140 (136-145) mmol/L Potassium 4.1 (3.5-5.1) mmol/L Chloride 99 (98-107) mmol/L Carbon Dioxide 31 H (22-29) mmol/L Anion Gap 14.1 (5-19) BUN 39 H (8-23) mg/dL Creatinine 1.0 H (0.5-0.9) mg/dL GFR Calculation 56.0 L (90-130) mL/min Glucose 125 H (65-115) mg/dL Calculated Osmolal ity 301 H (285-295) mOsm/k g Lactate 2.2 (0.5-2.2) mmol/L Calcium 8.8 (8.5-10.5) mg/dL Phosphorus 4.6 H (2.5-4.5) mg/dL Magnesium 2.5 H (1.7-2.3) mg/dL Total Bilirubin 0.2 (0.15-1.2) mg/dL AST 45 H (0-32) U/L ALT 107 H (0-33) U/L Alkaline Phosphata se 239 H (35-105) IU/L NT-Pro-B Natriuret Pep 5780 H (0-125) pg/mL Total Protein 5.4 L (6.6-8.7) g/dL Albumin 3.3 L (3.5-5.2) g/dL Globulin 2.1 (1.3-4.6) g/dL TSH 0.57 (0.27-4.20) uIU/ mL Ethyl Alcohol < 10 (0-10) mg/dL Discharge Plan Discharge Patient Disposition: Admitted As Inpatient Admit Provider: Robert Puckett Clinical Impression: SVT (supraventricular tachycardia), Acute respiratory failure with hypoxia Condition: Stable Coding Level of Care Code ED Wafer Fabrication Operator for Chg Fwd Exam Comprehensive
--- NOTE | 2020-08-19 15:33 | PC.PHAR ---
PT UNABLE TO CONFIRM MEDICATION. I SPOKE WITH HER GRANDDAUGHTER WHO HELPS TAKE CARE OF HER. GRANDDAUGHTER STATES THAT PT HAS BEEN A BIT NON COMPLIANT LATELY. SHE DID COMFIRM THE MEDICATION AND STATES THAT SHE THINKS THE PT TOOK MOST OF HER MEDICATION TODAY, BUT WASN'T POSITIVE.
[2020-08-19] MEDS: cefTRIAXone 1,000 MG in sodium chloride 0.9% (plus) 50 ML 100 MG IV (15:55)
[2020-08-19] MEDS: azithromycin 500 MG in sodium chloride 0.9% 250 ML 250 MG IV (15:56)
--- NOTE | 2020-08-19 16:00 | PC.NURSE ---
pt's heart rate continues to be in a tachycardia rhythm but is not sustaining. ER physician at bedside. verbal order to give IVP amiodarone if heart rate is sustaining over 150bpm. will continue to monitor.
--- NOTE | 2020-08-19 17:27 | PC.NURSE ---
Pt HR elevated back up to 165 SVT, pt attempted Valsalva maneuver with no success.
--- NOTE | 2020-08-19 17:28 | PC.NURSE ---
Pt attempted Valsalva maneuver again and converted to SR 80
[2020-08-19] MEDS: metoprolol tartrate 25 mg Tablet PO (17:53)
--- NOTE | 2020-08-19 18:53 | CTR_ITS ---
PROCEDURE INFORMATION: Exam: CT Angiography Chest With Contrast Exam date and time: 08/19/2020 7:43 PM Age: 65 years old Clinical indication: Shortness of breath; Prior surgery; Surgery type: Port; Additional info: R/O pe TECHNIQUE: Imaging protocol: Computed tomographic angiography of the chest with contrast. 3D rendering (Not supervised by radiologist): MIP and/or 3D reconstructed images were created by the technologist. Total images: 896 Radiation optimization: All CT scans at this facility use at least one of these dose optimization techniques: automated exposure control; mA and/or kV adjustment per patient size (includes targeted exams where dose is matched to clinical indication); or iterative reconstruction. Contrast material: VISI 320; Contrast volume: 95 ml; Contrast route: INTRAVENOUS (IV); COMPARISON: CT chest abd pel w con* 08/02/2020 9:43 AM RADIATION DOSE METRICS: Total DLP (mGy-cm): 591.32 FINDINGS: Tubes, catheters and devices: Left Infusaport catheter. Pulmonary arteries: No visible evidence of pulmonary embolism/pulmonary arterial thrombus. Aorta: The thoracic aorta is nonaneurysmal. No visible intimal flap or dissection. Moderate arterial sclerotic disease. Lungs: Evidence of bilateral hematogenous metastasis. Also evidence of lymphangitis metastasis. Subsegmental alveolar airspace disease right lung base which could reflect compressive atelectasis, focal edema, and/or pneumonia. Partial encasement of the right upper lobe bronchus and proximal segmental bronchi without obstruction. Partial encasement of the upper lobe pulmonary arteries without occlusion. Partial encasement of the right middle lobe bronchus without occlusion. Pleural spaces: Moderate volume right pleural effusion. Small volume left pleural effusion. Heart: Mild coronary artery disease. No cardiomegaly. No visible pericardial effusion. Lymph nodes: Interval enlargement of middle mediastinal and hilar tumor lymphadenopathy since last evaluation. Dominant right suprahilar and pretracheal tumor confluence measures approximately 8 cm x 4.7 cm x 5.7 cm. Right hilar tumoral confluence has also increased in size. Increase in pretracheal, aortopulmonic, subcarinal, and left hilar tumor lymphadenopathy confluences. Liver: Hepatomegaly with evidence of diffuse hepatic metastatic disease. Adrenal glands: Stable appearing left adrenal nodule potential metastatic focus measuring approximately 22 mm x 16 mm. Kidneys and ureters: Stable small nodule in the superior right renal pararenal space measuring 14 mm which may represent a metastatic focus. Also note of several small sub cm nodules in the left pararenal space within the field of view also potential metastasis. Bones/joints: Stable appearing sclerotic osteoblastic metastasis. Old nonunion right 8th and 9th rib fractures. Soft tissues: New small anterior extrapleural space metastatic nodule at the 4th costosternal junction. Also concern for tiny foci of potential skin metastatic disease. CT/CT angio chest PE protcl [id number] IMPRESSION: 1. No visible evidence of pulmonary embolism/pulmonary arterial thrombus. 2. Progression of metastatic lung carcinoma as detailed in text above. 3. Moderate volume right pleural effusion with small volume left. 4. Right basilar alveolar airspace disease which could reflect atelectasis, focal edema, and/or pneumonia. Radiation Dose CTDIVOL = (mGy): DLP = 591.32 (mGy-cm)
[2020-08-19] MEDS: FUROsemide 10 mg/mL SDV 4mL 40 MG IVP (19:42)
[2020-08-19] MEDS: famotidine 20 mg Tablet PO (19:43)
[2020-08-19] MEDS: enoxaparin 40 mg/0.4 mL Syringe SUBCUT (19:44)
[2020-08-19] MEDS: potassium chloride ER 20 mEq Tablet PO (19:45)
--- NOTE | 2020-08-19 20:08 | PM.CONSULT ---
Providers/Reason For Consult Consulting Physican/Specialty*: Cardiology Reason for Consult*: Arrhythmia Attending Physician: Robert Puckett MD Primary Care Provider: Mariam Mckeon-Viki History of Present Illness History of Present Illness Pamela Jack is a 65 year old female past medical history significant for neuroendocrine tumor with 4 COPD hypertension anemia history of atrial fibrillation was on anticoagulation which was stopped due to anemia questionable bleeding and wide spread metastasis history of renal failure presented with SVT and hypotension. She appeared to be in mixed picture of COPD exacerbation and heart failure. She was cardioverted electrically in the ER remains in sinus rhythm but slipped back into SVT. It is the reason we have been consulted. Patient has been admitted to ICU. Review of Systems General: Reports: 10 or more systems reviewed and unremarkable except in HPI and below Const: Denies: fever(s), chills, fatigue or malaise Eyes: Denies: change in vision, blurry vision or eye redness ENMT: Denies: throat pain, swelling of lips/tongue, ear or mastoid pain or nasal congestion Card: Reports: chest pain, palpitations and irregular heart rhythm; Denies: edema, dyspnea on exertion or orthopnea Resp: Denies: dyspnea, productive cough, non-productive cough or wheezing GI: Denies: abdominal pain, nausea, vomiting, hematemesis, diarrhea, constipation, GI cramping, hematochezia or melena : Denies: flank pain, difficulty voiding, dysuria, urinary frequency or urinary urgency Musc: Denies: neck pain, back pain, extremity pain, joint pain, joint redness, limited range of motion or muscle weakness Skin/Breast: Denies: rash, pruritus, erythema, skin pain or skin tenderness Neuro: Denies: headache(s), numbness in extremities, weakness in extremities, sensory changes, difficulty walking, dizziness, vertigo, confusion or Slurred speech present Psych: Denies: anxiety or depression Endo: Denies: polyuria or polydipsia All/Imm: Denies: urticaria, throat swelling or tongue swelling Meds/Allergies Home Medications and Allergies Home Medications Medication Instructions Recorded Confirmed Last Taken Type oxycodone 10 mg PO BID PRN 08/19/20 09/06/20 09/06/20 History metoprolol tartrate 25 mg PO BID@0900,2100 #60 tab 02/10/0609/06/20 09/06/20 Rx bumetanide 2 mg PO BID@0800,199908/22/20 09/06/20 09/06/20 History Pacerone 400 mg PO DAILY@0809/06/20 09/06/20 09/06/20 History Stiolto Respimat 2 puff INHALATION DAILY@0800 09/06/20 09/06/20 09/06/20 History benzonatate 200 mg PO TID PRN 09/06/20 09/06/20 Unknown History omeprazole 20 mg PO DAILY@0809/06/20 09/06/20 09/06/20 History potassium chloride [Klor-Con M20] 20 meq PO DAILY@0809/06/20 09/06/20 09/06/20 History Allergies Allergy/AdvReac Type Severity Reaction Status Date / Time linezolid Allergy ALGY-Difficulty Verified 06/19/20 14:47 Breathing Current Medications Current Medications Generic Name Dose Route Start Last Admin Trade Name Freq PRN Reason Stop Dose Admin Enoxaparin Sodium 40 mg 08/19/20 19:30 08/19/20 19:44 Enoxaparin 40 Mg/0.4 Ml Syringe SUBCUT 40 mg Q24H ANGEL Administration Famotidine 20 mg 08/19/20 18:53 08/19/20 19:43 Famotidine 20 Mg Tablet PO 20 mg BID ANGEL Administration Furosemide 40 mg 08/19/20 18:53 08/19/20 19:42 Furosemide 10 Mg/Ml Sdv 4ml IVP 40 mg Q12H ANGEL Administration Diltiazem HCl 125 mg/ Sodium 125 mls @ 5 mls/hr 08/19/20 14:00 08/19/20 15:43 Chloride IV Not Given .Q24H ANGEL Protocol 5 MG/HR Amiodarone HCl 900 mg/ 518 mls @ 0 mls/hr 08/19/20 16:00 08/19/20 16:48 Dextrose/ IV Miscellaneous IV 1 mg/min Supplies .Q0M ANGEL 34.5 mls/hr Administration Protocol Per Protocol Potassium Chloride 20 meq 08/19/20 18:53 08/19/20 19:45 Potassium Chloride Er 20 Meq Tablet PO 20 meq DAILY ANGEL Administration PFSH Acute PFSH: Medical History Abscess Acute diastolic heart failure Acute kidney injury Hyponatremia Malignant neoplasm of right main bronchus Metastatic lung cancer (metastasis from lung to other site) New onset atrial fibrillation Orthopnea Polydipsia Sepsis Sepsis with acute hypoxic respiratory failure Spontaneous tumor lysis syndrome Surgical History Hx of drainage of abscess (04/26/20) S/P dialysis catheter insertion (~04/26/20) Family History Mother CAD (coronary artery disease) Social History Smoking and tobacco status: current every day smoker cigarettes Packs smoked per day: 1.5 [ Other cigarette details: 1.5ppd x 45 ] Quit status (tobacco): considering quitting Second hand smoke exposure: No Smoking risk assessment/counseling performed?: Yes Alcohol intake: former Other details last alcohol use: She has a long history of alcohol use which had increased over the past 10 years up to 12 pack of beer per day. She quit 3 to 4 months ago. Caregiver/support person: Yes Lives independently: Yes Household members: family Housing: House Marital status: / Current occupational status: disabled History of recent travel: No Current gender identity: Female Dietary Habits: Current diet type/program: regular Caffeine: Yes Vitals/I&O/Wt Last Vital Signs Temp 97.9 F 08/19/20 13:41 Pulse 117 H 08/19/20 19:00 Resp 20 H 08/19/20 19:00 BP 83/58 08/19/20 19:00 Pulse Ox 97 08/19/20 19:00 08/19/20 08/19/20 08/19/20 06:59 14:59 22:59 Intake Total 403 / 403 Balance 403 / 403 Weight last 48 hrs Weight 175 lb Physical Exam Narrative: EXAM NARRATIVE: GENERAL: Patient is lethargic and short of breath sitting with BiPAP on NECK: No jugular vein distension. HEENT: No cyanosis. No icterus. No pallor. HEART: Regular S1 and S2. No murmur, rub or gallop. LUNGS: C inspiratory crackles bilaterally. ABDOMEN: Soft, nontender and nondistended. Positive bowel sounds. No guarding, rebound or tenderness. CENTRAL NERVOUS SYSTEM: Grossly nonfocal. EXTREMITIES: Lower extremities without edema bilaterally. A&P Assessment and plan (1) SVT (supraventricular tachycardia): Patient currently is in SVT with history of atrial fibrillation. It is multifactorial including respiratory failure diastolic heart failure and metastatic disease. We recommend for now starting patient on amiodarone and metoprolol 25 mg p.o. twice daily. Status: Resolved (2) Metastatic lung cancer (metastasis from lung to other site): As per medicine Status: Resolved Qualifiers: Laterality: right Qualified Code(s): C34.91 - Malignant neoplasm of unspecified part of right bronchus or lung (3) Acute diastolic heart failure: Advised starting diuretics including Lasix 40 mg twice daily. Status: Resolved Consult Attestations Medical Necessity Statement: Patient require continuation hospitalization for above defined care. Coding Level of Care Code New Pt Acute Corporate Learning Consultant for Chg Fwd Patient Type New Medical Decision Making Moderate Complexity Diagnoses SVT (supraventricular tachycardia) I47.1 Metastatic lung cancer (metastasis from lung to other site) C34.91 Laterality: right Acute diastolic heart failure I50.31
[2020-08-19] MEDS: iodixanol 320 mg/mL 100mL Btl IV (20:20)
--- NOTE | 2020-08-19 23:05 | PC.NURSE ---
2004 Pt taken by bed to CT Scan placed on portable telemetry and O2. tolerated well 2029 Pt back to room no changes noted placed on bedside monitor tolerated well
[2020-08-20] VITALS (29 sets, daily range): BP systolic 94–125; BP diastolic 57–90; PULSE 51–154; RESP 13–27; TEMP 36.4–36.7; O2SAT 93–99
[2020-08-20] MEDS: HYDROcodone-acetaminophen 5-325 mg Tablet 1 TAB PO (00:18)
[2020-08-20] MEDS: digoxin 250 mcg/ml INJ 2 mL 500 MCG IVP (00:49)
[2020-08-20 04:02] LABS: Basophils % 0.2 %; Hematocrit 33.6 % (37.0-47.0); Lymphocytes # 0.5 10^3/uL (0.8-4.8); Mean Corpuscular HGB Conc 29.8 g/dL (30.0-36.0); Mean Corpuscular Volume 100.9 fL (81-99); Mean Platelet Volume 9.7 fL (7.4-10.4); Monocytes # 0.8 10^3/uL (0.2-0.9); Monocytes % 4.9 %; Neutrophils % 90.8 %; Nucleated Red Blood Cells % 0 %; Platelet Count 276 10^3/cmm (130-400); Red Blood Count 3.33 10^6/uL (4.1-5.3); Red Cell Distribution Width 16.2 % (12.1-15.1); White Blood Count 17.1 10^3/uL (4.0-10.0)
[2020-08-20 04:16] LABS: Alanine Aminotransferase 120 U/L (0-33); Alkaline Phosphatase 216 IU/L (35-105); Aspartate Amino Transferase 58 U/L (0-32); Blood Urea Nitrogen 46 mg/dL (8-23); Calcium 8.8 mg/dL (8.5-10.5); Carbon Dioxide 29 mmol/L (22-29); Chloride 98 mmol/L (98-107); Globulin 2.4 g/dL (1.3-4.6); Glomerular Filtration Rate 50.2 mL/min (90-130); Glucose 122 mg/dL (65-115); Magnesium 2.4 mg/dL (1.7-2.3); Osmolality Calculated 301 mOsm/kg (285-295); Phosphorus 5.5 mg/dL (2.5-4.5); Sodium 139 mmol/L (136-145); Total Bilirubin 0.2 mg/dL (0.15-1.2); Total Protein 5.4 g/dL (6.6-8.7)
[2020-08-20 04:27] LABS: NT Pro B Type Natriuretic Pept 4366 pg/mL (0-125)
[2020-08-20 05:55] LABS: Estmated Average Glucose 105; Hemoglobin A1C 5.3 % (4.0-6.0)
[2020-08-20] MEDS: FUROsemide 10 mg/mL SDV 4mL 40 MG IVP ×2 (06:33→18:35)
[2020-08-20] MEDS: digoxin 250 mcg/ml INJ 2 mL 125 MCG IVP (07:54)
[2020-08-20] MEDS: potassium chloride ER 20 mEq Tablet PO (07:57)
[2020-08-20] MEDS: famotidine 20 mg Tablet PO ×2 (07:57→18:36)
[2020-08-20] MEDS: fluconazole 100 mg Tablet PO (07:57)
[2020-08-20] MEDS: pantoprazole DR 40 mg Tablet PO (07:58)
[2020-08-20 08:17] LABS: Add Urine Microscopic? NO
[2020-08-20 08:22] LABS: Bilirubin Urine Neg (Negative); Blood Urine Neg (Negative); Glucose Urine UA Norm (Normal); Ketones Urine Negative (Negative); Leukocyte Esterase Urine Negative (Negative); Nitrate Urine Negative (Negative); Protein Urine Neg (Negative); Urine Appearance Clear (CLEAR); Urine Color Straw (Yellow); Urobilinogen Urine Norm (Negative); pH Urine 5 (5-7)
[2020-08-20 08:31] LABS: Amphetamines Screen Urine Negative (Negative); Barbiturates Screen Urine Negative (Negative); Benzodiazepines Screen Urine Negative (Negative); Cocaine Screen Urine Negative (Negative); Opiate Screen Urine Positive (Negative); PCP Screen Urine Negative (Negative); THC Screen Urine Negative (Negative)
--- NOTE | 2020-08-20 09:33 | PC.CHAP ---
Pastoral Care Encounter/Spiritual Assessment Type of Contact [] Declined global engineering manager visit [] Patient/Family/Request visit [] Outpatient visit [] Follow-up visit [] Physician referral [] Code/Alert [x] Routine visit [] Staff referral [] Actively dying [] Patient sleeping [] Family support [] [] Out of room [] Palliative care [] [] Receiving care in room [] Pre-surgical visit [] Trauma [] Long length of stay [x] ICU visit [] Other: Relational/Emotional Strength [] Patient feels connected with others/family/visitors/staff [] Distress [] Loneliness/isolation [] Abandonment Spirituality of Patient [] Person of Melanie [] Attends Confucianist of their Melanie [] Believes in Prayer [] Reads Bible or Rastafarian materials [] There are Spiritual issues to be addressed 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[employer] [x] Prayer [] Active listening [] Non-anxious presence [] Spiritual/emotional support [] Crisis/trauma care [] Spiritual counseling [] Bereavement support [] Provided bereavement packet [] Provided Bible/devotional materials [] Provided toy/stuffed animal, coloring book to patient or family member [] Provided Communion [] Anointing/[place] [] Salvation [x] Completed spiritual assessment [] Other: Impact on Illness or Injury [] Angry [] Fearful [] Anxious [] Often cries [] Exhaustion [] Unable to work [] Unable to attend yazidism [] Unable to walk/stand [] Unable to read [] Unable to drive [] Unable to eat/drink [] Unable to sleep [] Unable to be with family [] Patient intubated [] Other: Summary patient setting up in bed.. not real social.. wanted to take meds and eat... Time spent with patient 5 min
--- NOTE | 2020-08-20 12:46 | PM.PN ---
Subjective Subjective: Interval history: Patient denies shortness of breath or chest pain this morning. Reports off-and-on phlegm productive cough for long period of time but mostly dry. Reports that her lower extremities lately been more swollen. She is undergoing chemoradiation therapy for metastatic malignancy. She is on amiodarone and her heart rate is in the 90s. Patient was seen by Dr. Wilson with medications adjusted. Vitals/I&O/Wt Last Vital Signs Temp 98.0 F 08/20/20 04:00 Pulse 108 H 08/20/20 11:05 Resp 20 H 08/20/20 11:02 BP 102/70 08/20/20 09:06 Pulse Ox 95 08/20/20 11:02 08/19/20 08/20/20 08/20/20 22:59 06:59 14:59 Intake Total 463 / 463 586.4 / 1049.4 480 / 480 Output Total 300 / 300 350 / 650 500 / 500 Balance 163 / 163 236.4 / 399.4 -20 / -20 Weight last 48 hrs Weight 79.379 kg Physical Exam Narrative: EXAM NARRATIVE: Lungs with bilateral rails. Heart is regular with no murmurs appreciated. Abdomen is somewhat protuberant but nondistended. Lower extremities show 1-2+ edema. Data : 08/20/20 03:33 08/20/20 03:33 A&P Assessment and plan (1) Acute respiratory failure with hypoxia: -No focal pneumonia seen on chest x-ray, white blood cell count 17,000, is immunocompromised -Right pleural effusion -Likely secondary to COPD and diastolic heart failure, possible pneumonia Plan: -Admit to ICU -Continue BiPAP, wean as tolerated -Switch to Solu-Medrol -Lasix 40 IV twice daily -We will preemptively start on broad-spectrum antibiotic therapy, Rocephin and azithromycin given immunocompromise status -Lovenox for DVT prophylaxis -Patient is a DNR/DNI, confirmed with patient at bedside multiple times, she does not want aggressive interventions, she tells me just let me go Status: Acute (2) SVT (supraventricular tachycardia): -Status post adenosine x2, Cardizem, labetalol -Successfully cardioverted -Sinus rhythm, heart rates in the 70s -Echocardiogram currently pending -Cardiology on consult -BNP is over 5000, will give Lasix therapy, creatinine 1.0 Status: Acute (3) COPD (chronic obstructive pulmonary disease): Inhaler therapy Status: Acute Qualifiers: COPD type: unspecified COPD Qualified Code(s): J44.9 - Chronic obstructive pulmonary disease, unspecified (4) Smoker: Status: Acute (5) Recurrent right pleural effusion: Minimal right pleural effusion, no need for drainage at this point Status: Acute (6) New onset of congestive heart failure: Status: Acute (7) Metastatic cancer: Status: Acute Qualifiers: Area of secondary neoplastic involvement: lymph node Lymph node location: intrathoracic region Qualified Code(s): C77.1 - Secondary and unspecified malignant neoplasm of intrathoracic lymph nodes (8) 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, stageIVB, disease progression right hilar, anterior mediastinal, subcarinal lymphadenopathy,, innumerable metastatic brain lesions, l hepatic metastasis, pulmonary metastatic disease, upper abdominal peritoneal implants, bony metastatic disease, developed acute renal failure ATN requiring hemodialysis, has received chemotherapy carboplatin etoposide, -currently receiving whole brain radiation -Currently on Decadron Status: Acute (9) Atrial fibrillation: -Hold amiodarone for now -It seems like patient had a EGD on 04/30/2020 which showed a 1.5 cm duodenal ulcer which appeared to be healing, not actively bleeding, colonoscopy showed a 3 mm sessile polyp in the rectum, her hemoglobin did drop to 7, requiring transfusion, possibly this is a reason why her anticoagulation was discontinued -We will discuss with cardiology the need for anticoagulation, given patient's poor functional status, poor prognosis Status: Acute Additional A&P Information PLAN: Continue current monitoring and treatment until deemed safe for discharge. Attestations Medical Necessity Statement*: Patient with arrhythmia in view of metastatic malignancy requires close ICU monitoring and treatment until deemed safe for transfer/discharge. Medications will need to be correctly adjusted. 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
--- NOTE | 2020-08-20 16:10 | PC.NURSE ---
Irritated. Patient verbally aggressive to nurse when nurse going to administer first dose of Rocephin. Nurse explained why medication was ordered and who ordered medication. Patient demanding that this medication be verified and confirmed with her oncologist, Dr. Nguyen. Patient asking that she be able to continue taking Levaquin that was recently ordered before this hospital stay. Dr. Morales, patient's current hospitalist notified by phone. No new orders at this time.
--- NOTE | 2020-08-20 18:01 | PC.NURSE ---
Addendum entered by Ray Florian RN 08/20/20 18:44: Dr. Morales came to visit with patient and go over medications. Verbal order to stop azithromycin and Rocephin and to give Levaquin 750 mg IV Q24h, start now. Original Note: Antibiotics Patient now asking if she can take the medications (rocephin, azithromycin) she refused earlier today. Pharmacy called. We will re-time medications.
[2020-08-20] MEDS: levofloxacin-dextrose 5 % 750 MG/150 ML PREMIX 100 MG IV (18:34)
[2020-08-20] MEDS: enoxaparin 40 mg/0.4 mL Syringe SUBCUT (18:36)
--- NOTE | 2020-08-20 19:00 | PM.PN ---
Subjective Subjective: Interval history: Feeling much better shortness of breath has improved heart rate remained stable on amiodarone. Vitals/I&O/Wt Last Vital Signs Temp 98.0 F 08/20/20 04:00 Pulse 101 H 08/20/20 16:00 Resp 17 08/20/20 16:00 BP 98/61 08/20/20 16:00 Pulse Ox 94 08/20/20 16:00 08/20/20 08/20/20 08/20/20 06:59 14:59 22:59 Intake Total 586.4 / 1049.4 611.6 / 611.6 Output Total 350 / 650 500 / 500 Balance 236.4 / 399.4 111.6 / 111.6 Weight last 48 hrs Weight 175 lb Physical Exam Narrative: EXAM NARRATIVE: GENERAL: Patient is feeling better alert awake oriented x3 NECK: No jugular vein distension. HEENT: No cyanosis. No icterus. No pallor. HEART: Regular S1 and S2. No murmur, rub or gallop. LUNGS: Reduced air entry but no Bilaterally. ABDOMEN: Soft, nontender and nondistended. Positive bowel sounds. No guarding, rebound or tenderness. CENTRAL NERVOUS SYSTEM: Grossly nonfocal. EXTREMITIES: Lower extremities without edema bilaterally. Data : 08/20/20 03:33 08/20/20 03:33 A&P Assessment and plan (1) SVT (supraventricular tachycardia): We will switch patient to p.o. amiodarone 400mg three times daily Status: Acute (2) Metastatic lung cancer (metastasis from lung to other site): As per medicine Status: Acute Qualifiers: Laterality: right Qualified Code(s): C34.91 - Malignant neoplasm of unspecified part of right bronchus or lung (3) Acute diastolic heart failure: Continue IV diuresis Status: Acute Attestations Medical Necessity Statement*: Require continuation hospitalization for above defined care. 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
--- NOTE | 2020-08-20 19:20 | PC.NURSE ---
Physician Notification Pt heart rate 150's-200. Pt up to commode. Assisted back to bed at this time. Pt complains of dizziness. BP 121/89. Rate is too fast to determine rhythm. When patient coughs breaks in rhythm and looks atrial fib.Amiodarone gtt infusing at 0.5mg/min. Dr. Wilson notified by phone of increased HR. Telephone orders received to start 25 mg po metoprolol, first dose now and to increase amiodarone gtt to 1mg/min. Verbal orders received once patient is in SR, give 400mg po amiodarone and stop drip in 1 hr.
[2020-08-20] MEDS: metoprolol tartrate 25 mg Tablet PO (19:35)
--- NOTE | 2020-08-20 19:50 | PC.NURSE ---
EKG preformed. shows afib with RVR.
--- NOTE | 2020-08-20 19:52 | ECG_ITS ---
[facility] Test Date: 2020-08-20 Pat Name: Pamela Jack Department: Room: ICU01 Gender: Female Director Learning: : 1955 Requested By: Robert Puckett Order Number: [id number] José Luis MD: Abe Calderon M.D. Measurements Intervals [place] Rate: 154 P: NE: QRS: 63 QRSD: 91 T: -60 QT: 217 QTc: 348 Interpretive Statements ATRIAL FIBRILLATION WITH RAPID VENTRICULAR RESPONSE NONSPECIFIC ST & T-WAVE ABNORMALITY Compared to ECG 08/19/2020 14:20:09 T-wave abnormality now present Sinus rhythm no longer present ST (T wave) deviation no longer present Electronically Signed On 08-21-2020 20:16:00 SECOND MATE by Abe Calderon M.D. [id number]
[2020-08-20] MEDS: amiodarone 200 mg Tablet 400 MG PO (19:55)
[2020-08-20] MEDS: oxyCODONE 5 mg IR Tab/Cap 10 MG PO (20:53)
--- NOTE | 2020-08-20 21:22 | PC.NURSE ---
Pt converted to SR at this time. Rate in 70's. Amiodarone gtt stopped at this time.
[2020-08-21] VITALS (12 sets, daily range): BP systolic 87–124; BP diastolic 52–86; PULSE 79–108; RESP 15–26; TEMP 36.3–36.8; O2SAT 94–98
[2020-08-21 03:58] LABS: Basophils % 0.1 %; Hematocrit 31.7 % (37.0-47.0); Hemoglobin 9.6 g/dL (11.5-15.3); Lymphocytes # 0.4 10^3/uL (0.8-4.8); Mean Corpuscular HGB Conc 30.3 g/dL (30.0-36.0); Mean Corpuscular Hemoglobin 29.4 pg (28.0-34.0); Mean Corpuscular Volume 97.2 fL (81-99); Mean Platelet Volume 10.1 fL (7.4-10.4); Monocytes # 0.9 10^3/uL (0.2-0.9); Monocytes % 4.7 %; Neutrophils # 16.53 10^3/uL (1.8-7.7); Neutrophils % 92.4 %; Nucleated Red Blood Cells % 0 %; Platelet Count 256 10^3/cmm (130-400); Red Blood Count 3.26 10^6/uL (4.1-5.3); Red Cell Distribution Width 15.8 % (12.1-15.1); White Blood Count 17.9 10^3/uL (4.0-10.0)
[2020-08-21 03:59] LABS: Alanine Aminotransferase 105 U/L (0-33); Albumin Level 2.9 g/dL (3.5-5.2); Alkaline Phosphatase 229 IU/L (35-105); Anion Gap 12.7 (5-19); Aspartate Amino Transferase 37 U/L (0-32); Blood Urea Nitrogen 35 mg/dL (8-23); Calcium 8.7 mg/dL (8.5-10.5); Carbon Dioxide 32 mmol/L (22-29); Chloride 99 mmol/L (98-107); Globulin 2.5 g/dL (1.3-4.6); Glomerular Filtration Rate 63.2 mL/min (90-130); Glucose 104 mg/dL (65-115); Magnesium 2.2 mg/dL (1.7-2.3); Osmolality Calculated 298 mOsm/kg (285-295); Phosphorus 3.5 mg/dL (2.5-4.5); Potassium 3.7 mmol/L (3.5-5.1); Sodium 140 mmol/L (136-145); Total Bilirubin 0.2 mg/dL (0.15-1.2); Total Protein 5.4 g/dL (6.6-8.7)
[2020-08-21 04:10] LABS: NT Pro B Type Natriuretic Pept 3235 pg/mL (0-125)
--- NOTE | 2020-08-21 05:30 | PC.NURSE ---
Ambulated Pt ambulated approx [address] with oxygen at 3L NC. Exertional SOB, oxygen remained 95% throughout activity. HR remains in 80's and sinus rhythm.
--- NOTE | 2020-08-21 08:20 | P.DS_ITS ---
Discharge Providers Date of Admission: 08/19/20 14:46 Date of Discharge: August 21, 2020 Attending Provider at Admission: Robert Puckett MD Attending Provider at Discharge: Eleazar Morales MD Primary Care Provider: Mariam Mckeon-Viki Diagnoses at Discharge Discharge Diagnosis (1) SVT (supraventricular tachycardia): Status: Acute (2) Metastatic lung cancer (metastasis from lung to other site): Status: Acute Qualifiers: Laterality: right Qualified Code(s): C34.91 - Malignant neoplasm of unspecified part of right bronchus or lung (3) Acute diastolic heart failure: Status: Acute Reason for Visit Reason for Visit: SVT Hospital Course Hospital Course Patient with widely metastatic malignancy currently undergoing chemoradiation therapy presented with rapid heart rate and found to have SVT on top of chronic atrial fibrillation. Patient was treated with digoxin, adenosine, labetalol, Cardizem initially and then started on amiodarone drip and then transition to oral amiodarone. She had no more recurrences of SVT. She remains in atrial fibrillation. Discussed with Dr. Wilson this morning who wants to continue patient on amiodarone at higher dose than she takes at home, 400 mg daily along with metoprolol 25 mg twice daily. She was noted to be in acute diastolic heart failure and improved with IV diuresis. Her BNP gradually improved. She was getting Levaquin prior to admission and refused to take azithromycin and ceftriaxone initially but then agreed after she got approval from Dr. Nguyen. Since patient already been on Levaquin her antibiotic was switched to Levaquin. Patient reports that she has only 1 tablet left at home therefore I will request 3 more as underlying pneumonia cannot be completely ruled out. This morning patient denies any shortness of breath above her baseline. Denies chest pain. She uses oxygen at home. She is scheduled for brain radiation therapy at 915 but it was canceled. Patient will be contacted for next appointment by radiation oncology team Outpatient follow-up with Dr. Nguyen and Dr. Wilson will be requested. I will also request CBC and CMP with results to be sent to Dr. Nguyen next Wednesday. Anticoagulation will not be initiated because of high risk of intracranial bleed. Given patient's current medical condition I think further evaluation of coronary arteries would not be recommended and treating patient medically would be the most appropriate approach. Patient is not interested in smoking cessation. Overall patient has very poor prognosis Physical Exam Const: COMMON NORMALS: no acute distress and patient oriented x3 Resp: COMMON NORMALS: normal respiratory effort OTHER: Minimal bibasilar Rales Cardio: COMMON NORMALS: S2 normal heart sound present RHYTHM: abnormal rhythm irregularly irregular HEART SOUNDS: S2 normal heart sound present OTHER: No lower extremity edema GI: COMMON NORMALS: Normal to inspection, nondistended, normoactive bowel sounds present, Soft to palpation and non-tender PALPATION: Yes Soft to palpation Neuro: COMMON NORMALS: patient oriented x3 and no focal motor deficits (On gross examination.) Discharge Data Data Completed and Pending: Completed Studies During Hospitalization Category Date Time Status CT angio chest PE protcl 46000 Rout ine Cat Scan 08/19/20 18:53 Completed XR chest 1V sigifredo ble 69300 Urgent Exams 08/19/20 13:49 Completed US chest 09013 Ur gent Ultrasound 08/19/20 Completed US echo complete [CV echo complete* 33784] Urgent Ultrasound 08/19/20 14:21 Completed Pending at discharge Category Date Time Status Complete Blood Co unt w/Auto AM LABS Lab 08/22/20 04:00 Ordered Comprehensive Met abolic Panel AM LA BS Lab 08/22/20 04:00 Ordered Magnesium AM LABS Lab 08/22/20 04:00 Ordered NT Pro B Type Marian riuretic Pept QAM Lab 08/22/20 06:00 Ordered Phosphorus AM LAB S Lab 08/22/20 04:00 Ordered Labs from last 24 hours 08/21/20 08/21/20 08/21/20 03:00 03:00 03:00 WBC 17.9 H RBC 3.26 L Hgb 9.6 L Hct 31.7 L MCV 97.2 MCH 29.4 MCHC 30.3 RDW 15.8 H Plt Count 256 MPV 10.1 Neut % (Auto) 92.4 Lymph % (Auto) 2.0 [place] % (Auto) 4.7 Eos % (Auto) 0.0 Baso % (Auto) 0.1 Neut # (Auto) 16.53 H Lymph # (Auto) 0.4 L [place] # (Auto) 0.9 Eos # (Auto) 0.0 Baso # (Auto) 0.0 Nucleated RBC % (a uto) 0 Nucleated RBCs # 0.0 Sodium 140 Potassium 3.7 Chloride 99 Carbon Dioxide 32 H Anion Gap 12.7 BUN 35 H Creatinine 0.9 GFR Calculation 63.2 L Glucose 104 Calculated Osmolal ity 298 H Calcium 8.7 Phosphorus 3.5 Magnesium 2.2 Total Bilirubin 0.2 AST 37 H ALT 105 H Alkaline Phosphata se 229 H NT-Pro-B Natriuret Pep 3235 H Total Protein 5.4 L Albumin 2.9 L Globulin 2.5 Urine Color Urine Appearance Urine pH Ur Specific Gravit y Urine Protein Urine Glucose (UA) Urine Ketones Urine Blood Urine Nitrate Urine Bilirubin Urine Urobilinogen Ur Leukocyte Nohemy ase Urine Opiates Scre en Ur Barbiturates Sc reen Ur Phencyclidine S crn Ur Amphetamines Sc reen U Benzodiazepines Scrn Urine Cocaine Scre en U Marijuana (THC) Screen 08/20/20 08/20/20 08:05 08:05 WBC RBC Hgb Hct MCV MCH MCHC RDW Plt Count MPV Neut % (Auto) Lymph % (Auto) [place] % (Auto) Eos % (Auto) Baso % (Auto) Neut # (Auto) Lymph # (Auto) [place] # (Auto) Eos # (Auto) Baso # (Auto) Nucleated RBC % (a uto) Nucleated RBCs # Sodium Potassium Chloride Carbon Dioxide Anion Gap BUN Creatinine GFR Calculation Glucose Calculated Osmolal ity Calcium Phosphorus Magnesium Total Bilirubin AST ALT Alkaline Phosphata se NT-Pro-B Natriuret Pep Total Protein Albumin Globulin Urine Color Straw Urine Appearance Clear Urine pH 5 Ur Specific Gravit y 1.010 Urine Protein Neg Urine Glucose (UA) Norm Urine Ketones Negative Urine Blood Neg Urine Nitrate Negative Urine Bilirubin Neg Urine Urobilinogen Norm Ur Leukocyte Nohemy ase Negative Urine Opiates Scre en Positive H Ur Barbiturates Sc reen Negative Ur Phencyclidine S crn Negative Ur Amphetamines Sc reen Negative U Benzodiazepines Scrn Negative Urine Cocaine Scre en Negative U Marijuana (THC) Screen Negative Vitals: Last Vital Signs Temp 97.8 F 08/21/20 05:12 Pulse 89 08/21/20 05:37 Resp 21 H 08/21/20 05:12 BP 110/63 08/21/20 05:12 Pulse Ox 95 08/21/20 05:12 Discharge Plan Discharge Patient Disposition: Home Condition: Stable Prescriptions: New metoprolol tartrate 25 mg Tablet 25 mg PO BID@0900,2100 Qty: 60 RF: 0 potassium chloride [Klor-Con M20] 20 mEq Tablet,Er Particles/Crystals 20 meq PO DAILY Qty: 30 RF: 0 Continued bumetanide 1 mg tablet 1 mg PO BID Qty: 60 RF: 3 Stiolto Respimat 2.5-2.5 mcg/actuation mist 2 puff inhalation DAILY Qty: 4 RF: 3 benzonatate 100 mg Capsule 100 mg PO TID PRN (Reason: cough) Qty: 15 RF: 0 hydrocodone-acetaminophen [[place]] 5-325 mg tablet 1 tab PO Q6H PRN (Reason: pain) Qty: 28 RF: 0 fluconazole 100 mg Tablet 100 mg PO DAILY RF: 0 dexamethasone 4 mg tablet 4 mg PO DAILY RF: 0 omeprazole 20 mg capsule,delayed release(DR/EC) 20 mg PO DAILY RF: 0 oxycodone 10 mg tablet 10 mg PO Q4H PRN (Reason: Pain) RF: 0 levofloxacin 500 mg tablet See Rx Instructions .ROUTE .COMPLEX Qty: 3 RF: 0 Changed amiodarone [Pacerone] 200 mg Tablet 400 mg PO DAILY Qty: 30 RF: 0 Discontinued Lasix 40 mg Tablet 40 mg PO DAILY RF: 0 Discharge Orders: Discharge Order (Routine); Ordered 08/21/20 Ordered By: Eleazar Morales Other Ambulatory Orders: Complete Blood Count w/Auto (Routine) Timeframe: 20200826 Location: Determined by Patient Ordered By: Eleazar Morales Comprehensive Metabolic Panel (Routine) Timeframe: 20200826 Facility: [facility] - Location: Lab - Main Lab Ordered By: Eleazar Morales Referrals: Jonathan Wilson MD [Physician] - 2 weeks Александр Nguyen MD [Hospitalist] - 08/26/20 Mariam Mckeon FNP-C [Primary Care Provider] - 4-7 days Discharge Diet: Usual diet Discharge Activity: Resume usual activity Activity Restrictions/Additional Instructions: Please call your doctor or present to emergency department if your condition worsens or you develop diarrhea. Please keep blood pressure and heart rate log 3 times daily to present to primary care physician next visit for medication adjustment. Discharge Attestations Time Spent in Discharge Care*: greater than 30 min Status at Discharge: Cognitive status at discharge: cognitively intact , Behavioral status at discharge: cooperative , Quality Metrics Clinical Quality Measures During this hospital stay, did patient experience: None Coding Level of Care Code Acute Supervisor [employer] Fab[employer]ation for Chg Fwd Exam Detailed Diagnoses SVT (supraventricular tachycardia) I47.1 Metastatic lung cancer (metastasis from lung to other site) C34.91 Laterality: right Acute diastolic heart failure I50.31
[2020-08-21] MEDS: potassium chloride ER 20 mEq Tablet PO (08:38)
[2020-08-21] MEDS: metoprolol tartrate 25 mg Tablet PO (08:38)
[2020-08-21] MEDS: digoxin 125 mcg Tablet PO (08:38)
[2020-08-21] MEDS: pantoprazole DR 40 mg Tablet PO (08:38)
[2020-08-21] MEDS: famotidine 20 mg Tablet PO (08:38)
[2020-08-21] MEDS: amiodarone 200 mg Tablet 400 MG PO (08:39)
--- NOTE | 2020-08-21 08:46 | PC.NURSE ---
Pt upset that radiation has been canceled. Pt also upset that nurse was unable to reach granddaughter except by voicemail. Pt wanting to leave and upset that she is still in the hospital.
--- NOTE | 2020-08-21 09:14 | PC.CHAP ---
Pastoral Care Encounter/Spiritual Assessment Type of Contact [] Declined mask inspector visit [] Patient/Family/Request visit [] Outpatient visit [] Follow-up visit [] Physician referral [] Code/Alert [x] Routine visit [] Staff referral [] Actively dying [] Patient sleeping [] Family support [] [] Out of room [] Palliative care [] [] Receiving care in room [] Pre-surgical visit [] Trauma [] Long length of stay [x] ICU visit [] Other: Relational/Emotional Strength [] Patient feels connected with others/family/visitors/staff [] Distress [] Loneliness/isolation [] Abandonment Spirituality of Patient [] Person of Melanie [] Attends Amish of their Melanie [] Believes in Prayer [] Reads Bible or Temple materials [] There are Spiritual issues to be addressed 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 Interventions [x] Prayer [] Active listening [] Non-anxious presence [] Spiritual/emotional support [] Crisis/trauma care [] Spiritual counseling [] Bereavement support [] Provided bereavement packet [] Provided Bible/devotional materials [] Provided toy/stuffed animal, coloring book to patient or family member [] Provided Communion [] Anointing/[place] [] Salvation [x] Completed spiritual assessment [] Other: Impact on Illness or Injury [] Angry [] Fearful [] Anxious [] Often cries [] Exhaustion [] Unable to work [] Unable to attend orthodoxy [] Unable to walk/stand [] Unable to read [] Unable to drive [] Unable to eat/drink [] Unable to sleep [] Unable to be with family [] Patient intubated [] Other: Summary patient preparing to return home... getting ready.. has people at home that will take care of her. Time spent with patient 10 min
--- NOTE | 2020-08-21 10:00 | PC.NURSE ---
Informed pt that granddaughter called back. Pt requested granddaughter bring pt's mother's car as it is easier for pt to get into than granddaughter's. Granddaughter agreed and stated she will arrive at 1115. Pt wanted dressed and port deaccessed. Pt dressed and removed from monitor.
--- NOTE | 2020-08-21 10:52 | PC.NURSE ---
Upset that community relations police lieutenant has made appts for her as she believes they will be at inconvenient times. She and her family live in [place] which is 1[place]5 hours away. Encouraged pt that if the times are not convenient, that phone numbers are provided and she is welcome to reschedule them at her convenience if she chooses. Obtained meds to beds for pt with her approval. Should arrive soon.
--- NOTE | 2020-08-21 16:37 | PC.RESP ---
Smoking Cessation and Pulmonary Rehab information sent to patient.
== END 2020-08-21 11:20 | disposition expired | DRG 308 ==
LOC: ER 14:50 → ICU 15:35
PROVIDERS: Admitting Provider Family Medicine; Emergency Provider Family Medicine; PCP Nurse Practitioner Family; Visit Provider Internal Medicine
DX: I47.1 Supraventricular tachycardia (principal); J96.01 Acute respiratory failure with hypoxia; I50.31 Acute diastolic (congestive) heart failure; C7A.8 Other malignant neuroendocrine tumors; C7B.8 Other secondary neuroendocrine tumors; J44.1 Chronic obstructive pulmonary disease with (acute) exacerbation; J44.0 Chronic obstructive pulmonary disease with (acute) lower respiratory infection; I95.9 Hypotension, unspecified; Z79.899 Other long term (current) drug therapy; F17.210 Nicotine dependence, cigarettes, uncomplicated; F10.21 Alcohol dependence, in remission; I11.0 Hypertensive heart disease with heart failure; I48.20 Chronic atrial fibrillation, unspecified; D64.9 Anemia, unspecified; Z79.891 Long term (current) use of opiate analgesic
CPT/HCPCS: 12345; 36591; 36600; 71045; 71275; 76604; 80053; 80306; 80307; 81003; 82805; 83036; 83605; 83735; 83880; 84100; 84443; 85025; 93005; 93306; 94640; 94660; 96372; 97161; 97165; 99283; 99292; J0153; J0282; J0456; J0696; J1160; J1650; J1940; J1956; J3490; J3535; J7050; J7060; Q9967

== ENCOUNTER 2020-08-23 05:32 | Outpatient (RCR) | payer MEDICAID, SELFPAY | END 2020-08-23 09:00 | disposition home or self-care (01) | LOC: ONCMED 05:32 | PROVIDERS: PCP Nurse Practitioner Family; Visit Provider Radiology Radiation Oncology | DX: Z51.0 Encounter for antineoplastic radiation therapy (principal); C34.01 Malignant neoplasm of right main bronchus; C79.31 Secondary malignant neoplasm of brain; C77.1 Secondary and unspecified malignant neoplasm of intrathoracic lymph nodes; C78.7 Secondary malignant neoplasm of liver and intrahepatic bile duct | CPT/HCPCS: 77412 ==

== ENCOUNTER → 2020-08-23 09:26 | Day surgery (SDC) | payer MEDICAID, SELFPAY ==
[2020-08-22 18:16] VITALS: BMI 29.1
[2020-08-23 09:37] VITALS: BP 110/77; PULSE 77; RESP 22; TEMP 36.8; O2SAT 97
--- NOTE | 2020-08-23 10:19 | P.OP_ITS ---
Operative Report Date of procedure: August 23, 2020 Pulmonary & Critical Care Medicine Procedure -right pleural fluid thoracentesis Procedure: Right side thoracentesis Indication: Dyspnea in patient with right Pleural effusion and metastatic small cell cancer patient with new onset A. fib and CHF. Thoracentesis done to rule out infection and provide symptomatic relief. Asphalt Roller Operator(s): Aldair Sanchez MD Consent: Signed and placed in chart Anesthesia: 10 cc 1% lidocaine without epinephrine Description: Right pleural effusion was localized using ultrasound guidance and the site was marked accordingly. After chlorhexidine skin prep, area was draped in a sterile manner. 1% lidocaine was used for local anesthesia. Thoracentesis catheter was then inserted into the pleural space with aspiration of 1100 cc of pleural fluid. Appearance was straw-colored. Ultrasound guidance used: Yes. Image saved to ultrasound machine yes PREPROCEDURE: POST PROCEDURE: EBL: 5 cc Complications: No Recommendations: Patient reported him being on bumetanide 2 mg twice daily and potassium supplementation. Recommended to continue current regimen and daily weight monitoring. Pre-op Diagnosis: Lung cancer Associated Problem List Diagnoses (1) Metastatic lung cancer (metastasis from lung to other site): Qualifiers: Laterality: right Qualified Code(s): C34.91 - Malignant neoplasm of unspecified part of right bronchus or lung (2) New onset of congestive heart failure: (3) Recurrent right pleural effusion:
[2020-08-23 10:25] VITALS: O2SAT 98
--- NOTE | 2020-08-23 10:34 | PC.NURSE ---
Naseem- DR DATAR DID THORACENTESIS. PT LATONIA WELL. O2 SATS REMAINED 97-98 THROUGHOUT THE PROCEDURE WITH PT ON O2 AT 2L PER NC. 1100ML CLEAR YELLOW FLUID OUT PER VACUTAINER. PUNCTURE SITE COVERED WITH VASALINE GAUZE AND FOLDED 4X4 AND COVERED WITH FOAM TAPE.
[2020-08-23 11:04] LABS: Mononuclear %, Pleural Fluid 87 %; Mononuclear, Pleural Fluid # 0.115 10^3/uL; Polynuclear Cells, Pleural # 0.018 10^3/uL; Polynuclear Cells, Pleural % 14 %
[2020-08-23 11:10] LABS: Appearance, Pleural Fluid CLEAR (CLEAR); PATH Referral YES
[2020-08-23 11:21] LABS: Right Pleural Fluid Right Lung
[2020-08-23 11:43] LABS: Creatinine Body Fluid 0.93 (0.5-0.9); Triglycerides, Pleural Fluid 22 mg/dL
[2020-08-23 11:44] LABS: LDH Pleural Fluid 195 U/L; Pleural Fluid Albumin 1.2 g/dL; Total Protein Pleural Fluid 1.9 g/dL
[2020-08-23 12:04] LABS: Color, Pleural Fluid Pale Yellow (Pale Yellow)
== END ==
PROVIDERS: PCP Nurse Practitioner Family; Visit Provider Internal Medicine Pulmonary Disease
DX: J90 Pleural effusion, not elsewhere classified (principal); C34.91 Malignant neoplasm of unspecified part of right bronchus or lung; I50.9 Heart failure, unspecified
CPT/HCPCS: 12345; 32555; 80500; 82042; 82150; 82570; 82945; 83615; 83986; 84157; 84478; 85014; 87015; 87070; 87075; 87116; 87205; 87206; 87801; 89050

== ENCOUNTER 2020-08-26 06:13 | Outpatient (RCR) | payer MEDICAID, SELFPAY ==
[2020-08-26 09:45] LABS: Basophils % 0.2 %; Hematocrit 36.5 % (37.0-47.0); Lymphocytes # 0.4 10^3/uL (0.8-4.8); Mean Corpuscular HGB Conc 30.1 g/dL (30.0-36.0); Mean Corpuscular Hemoglobin 29.8 pg (28.0-34.0); Mean Corpuscular Volume 98.9 fL (81-99); Mean Platelet Volume 9.8 fL (7.4-10.4); Monocytes # 0.6 10^3/uL (0.2-0.9); Monocytes % 3.5 %; Neutrophils # 16.71 10^3/uL (1.8-7.7); Neutrophils % 93.3 %; Nucleated Red Blood Cells % 0 %; Platelet Count 222 10^3/cmm (130-400); Red Blood Count 3.69 10^6/uL (4.1-5.3); Red Cell Distribution Width 16.2 % (12.1-15.1); White Blood Count 17.9 10^3/uL (4.0-10.0)
[2020-08-26 10:16] LABS: Alanine Aminotransferase 66 U/L (0-33); Alkaline Phosphatase 287 IU/L (35-105); Anion Gap 14.7 (5-19); Aspartate Amino Transferase 31 U/L (0-32); Blood Urea Nitrogen 22 mg/dL (8-23); Calcium 8.7 mg/dL (8.5-10.5); Carbon Dioxide 33 mmol/L (22-29); Chloride 99 mmol/L (98-107); Globulin 2.5 g/dL (1.3-4.6); Glomerular Filtration Rate 72.4 mL/min (90-130); Glucose 104 mg/dL (65-115); Osmolality Calculated 300 mOsm/kg (285-295); Potassium 3.7 mmol/L (3.5-5.1); Sodium 143 mmol/L (136-145); Total Bilirubin 0.2 mg/dL (0.15-1.2); Total Protein 5.5 g/dL (6.6-8.7)
== END 2020-09-06 17:00 | disposition home or self-care (01) ==
LOC: ONCMED 06:13
PROVIDERS: Absent Provider Radiology Radiation Oncology; PCP Nurse Practitioner Family; Visit Provider Internal Medicine Medical Oncology
DX: Z51.0 Encounter for antineoplastic radiation therapy (principal); C79.31 Secondary malignant neoplasm of brain; C34.01 Malignant neoplasm of right main bronchus; C77.1 Secondary and unspecified malignant neoplasm of intrathoracic lymph nodes; C78.7 Secondary malignant neoplasm of liver and intrahepatic bile duct
CPT/HCPCS: 36591; 77336; 77412; 80053; 85025

== ENCOUNTER 2020-09-06 17:08 | Inpatient (IN) | payer MEDICAID, SELFPAY ==
[2020-09-06] VITALS (31 sets, daily range): BP systolic 66–120; BP diastolic 34–75; PULSE 74–167; RESP 12–29; TEMP 36.4; O2SAT 90–99; BMI 29.1
--- NOTE | 2020-09-06 17:14 | XRR_ITS ---
PROCEDURE INFORMATION: Exam: XR Chest, 1 View Exam date and time: 09/06/2020 5:38 PM Age: 65 years old Clinical indication: Cough and dyspnea; Additional info: Dyspnea/cough TECHNIQUE: Imaging protocol: XR of the chest Views: 1 view. COMPARISON: CR XR chest 1V portable [id number] 08/19/2020 2:15 PM FINDINGS: Tubes, catheters and devices: Left central line extending into the SVC. Lungs: Prominent bronchovascular markings and interstitial congestion left lower lobe stable since prior. No consolidation. Pleural spaces: There is a loculated right lower lobe pleural effusion. No pneumothorax. Heart/Mediastinum: Unremarkable. No cardiomegaly. Bones/joints: Unremarkable. XR/XR chest 1V portable [id number] IMPRESSION: 1. Stable loculated right lower lobe pleural effusion 2. Left central line in the SVC 3. Stable left lower lobe interstitial congestion
--- NOTE | 2020-09-06 17:14 | ECG_ITS ---
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 Measurements Intervals [place] Rate: 169 P: DC: QRS: 56 QRSD: 89 T: 264 QT: 253 QTc: 425 Interpretive Statements ATRIAL FIBRILLATION WITH RAPID VENTRICULAR RESPONSE ST DEVIATION AND MODERATE T-WAVE ABNORMALITY, CONSIDER INFERIOR ISCHEMIA [-0.1+ mV T WAVE IN II/aVF] CRITICAL TEST RESULT Compared to ECG 08/20/2020 19:50:51 Possible ischemia now present T-wave abnormality still present Electronically Signed On 09-07-2020 19:34:27 CHIEF CONSOLE OPERATOR by Olga Carrillo M.D. [id number]
--- NOTE | 2020-09-06 17:36 | W.ED.ARRPALP ---
Documented by User: Dion Baez DO 09/09/20 06:52 HPI - Arrhythmia/Palpitations General: Chief Complaint: Arrhythmia/Palpitations Stated Complaint: SVT Time Seen by Provider: 09/06/20 17:09 History of Present Illness: HPI narrative: 85-year-old female presents to the emergency room with A. fib with rapid ventricular response. 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 She is getting whole brain radiation as of form of palliative treatment and is on dexamethasone she was here earlier this month with a similar episode was quite difficult to get converted. Reading through the oncology notes does not appear Dr. Nguyen is strongly recommending further chemo because of her advanced disease. Time of diagnosis she was stage IV and it is advanced more since then as well. MD complaint: rapid heart beat and heart racing Onset (ago): hour(s) Duration: intermittent Context: occurred during rest Arrhythmia history: atrial fibrillation Associated symptoms: Reports anxiety, cough, sense of impending doom and short of breath; Deny diaphoresis, muscle cramps, nausea, paresthesias, pre-syncope, syncope or vomiting Treatments prior to arrival: other (Patient refused) Review of Systems Const: Denies: diaphoresis ENMT: Denies: throat pain, ear or mastoid pain, nasal discharge or nasal congestion Card: Denies: syncope or pre-syncope Resp: Denies: dyspnea, productive cough or non-productive cough GI: Denies: nausea or vomiting : Denies: flank pain, difficulty voiding, dysuria, urinary frequency or urinary urgency Musc: Denies: muscle cramps Skin/Breast: Denies: rash or pruritus Psych: Reports: anxiety PFS ED PFSH: Medical History Abscess Acute diastolic heart failure Acute kidney injury Hyponatremia Malignant neoplasm of right main bronchus Metastatic lung cancer (metastasis from lung to other site) New onset atrial fibrillation Orthopnea Polydipsia Sepsis Sepsis with acute hypoxic respiratory failure Spontaneous tumor lysis syndrome Surgical History Hx of drainage of abscess (04/26/20) S/P dialysis catheter insertion (~04/26/20) Family History Mother CAD (coronary artery disease) Social History Smoking and tobacco status: current every day smoker cigarettes Packs smoked per day: 1.5 [ Other cigarette details: 1.5ppd x 45 ] Quit status (tobacco): considering quitting Second hand smoke exposure: No Smoking risk assessment/counseling performed?: Yes Alcohol intake: former Other details last alcohol use: She has a long history of alcohol use which had increased over the past 10 years up to 12 pack of beer per day. She quit 3 to 4 months ago. Caregiver/support person: Yes Lives independently: Yes Household members: family Housing: House Marital status: / Current occupational status: disabled History of recent travel: No Current gender identity: Female Physical Exam Const: GENERAL APPEARANCE: cooperative ORIENTATION/CONSCIOUSNESS: Yes oriented to person, Yes oriented to place and Yes oriented to time HENMT: COMMON NORMALS: normocephalic, atraumatic and hearing grossly normal bilaterally HEAD & SCALP: normocephalic and atraumatic Resp: EFFORT & INSPECTION: Yes tachypneic AUSCULTATION: rales, rhonchi and diminished lung sounds Cardio: RATE: tachycardic RHYTHM: abnormal rhythm irregularly irregular Extremity: GENERAL: Yes edema Neuro: SENSORIUM/ORIENTATION: Yes oriented to person, Yes oriented to place and Yes oriented to time Course Vital Signs: Vital signs: Vital Signs Temperature 97.9 F 09/08/20 19:56 Pulse Rate 101 H 09/09/20 06:00 Respiratory Rate 14 09/09/20 06:00 Blood Pressure 129/80 09/09/20 06:00 Pulse Oximetry 81 L 09/09/20 06:00 MDM - Arrhythmia/Palpitations MDM Narrative: Medical decision making narrative: She has a history of lung CA with extensive metastasis. Reviewing oncology notes parietal images what her options are going forward she is a very poor prognosis. She was recently hospitalized with a similar presentation I have failed multiple medications before eventually improving with esmolol and amiodarone. She was started on amiodarone drip protocol and she did convert to normal sinus rhythm however she is hypotensive. Had discussions with patient on her CODE STATUS she states she was unaware of the extent of her cancer. In talking to her I did do not believe she is to had any family members with her to her doctor's appointment and not sure that in her previous office visit she still fully understood the gravity of her current diagnosis. It is certainly reflected in Dr. Nguyen's notes. Discussed her CODE STATUS with her she is considering what she would like to do. Discussed with Dr. Howell at change of shift at the moment patient room would remain a full code and I have discussed with her that given her overall condition that may not be in her best interest. Anticipate admission. Dr. Howell assumed care at change of shift see his notes for final diagnosis and disposition. Lab Data: Labs: Lab Results 09/06/20 09/06/20 09/06/20 Range/Units 17:30 17:30 17:30 WBC 14.8 H (4.0-10.0) 10^3/ uL RBC 3.86 L (4.1-5.3) 10^6/u L Hgb 11.6 (11.5-15.3) g/dL Hct 37.2 (37.0-47.0) % MCV 96.4 (81-99) fL MCH 30.1 (28.0-34.0) pg MCHC 31.2 (30.0-36.0) g/dL RDW 16.0 H (12.1-15.1) % Plt Count 221 (130-400) 10^3/c mm MPV 11.2 H (7.4-10.4) fL Neut % (Auto) 93.2 % Lymph % (Auto) 1.8 % Emanuel % (Auto) 3.9 % Eos % (Auto) 0.0 % Baso % (Auto) 0.2 % Neut # (Auto) 13.80 H (1.8-7.7) 10^3/u L Lymph # (Auto) 0.3 L (0.8-4.8) 10^3/u L Emanuel # (Auto) 0.6 (0.2-0.9) 10^3/u L Eos # (Auto) 0.0 (0.0-0.8) 10^3/u L Baso # (Auto) 0.0 (0.0-0.1) 10^3/u L Nucleated RBC % (a uto) 0 % Nucleated RBCs # 0.0 /100WBC Sodium Cancelled Potassium Cancelled Chloride Cancelled Carbon Dioxide Cancelled Anion Gap Cancelled BUN Cancelled Creatinine Cancelled GFR Calculation Cancelled Glucose Cancelled Calculated Osmolal ity Cancelled Calcium Cancelled Magnesium (1.7-2.3) mg/dL Total Bilirubin Cancelled AST Cancelled ALT Cancelled Alkaline Phosphata se Cancelled Creatine Kinase Cancelled Troponin T Baselin e Cancelled Troponin T 120 Min [place] (0-10) ng/L Delta Troponin T (0-10) ABS# NT-Pro-B Natriuret Pep (0-125) pg/mL Total Protein Cancelled Albumin Cancelled Globulin Cancelled TSH (0.27-4.20) uIU/ mL 09/06/20 09/06/20 09/06/20 Range/Units 18:25 18:25 18:26 WBC (4.0-10.0) 10^3/ uL RBC (4.1-5.3) 10^6/u L Hgb (11.5-15.3) g/dL Hct (37.0-47.0) % MCV (81-99) fL MCH (28.0-34.0) pg MCHC (30.0-36.0) g/dL RDW (12.1-15.1) % Plt Count (130-400) 10^3/c mm MPV (7.4-10.4) fL Neut % (Auto) % Lymph % (Auto) % Emanuel % (Auto) % Eos % (Auto) % Baso % (Auto) % Neut # (Auto) (1.8-7.7) 10^3/u L Lymph # (Auto) (0.8-4.8) 10^3/u L Emanuel # (Auto) (0.2-0.9) 10^3/u L Eos # (Auto) (0.0-0.8) 10^3/u L Baso # (Auto) (0.0-0.1) 10^3/u L Nucleated RBC % (a uto) % Nucleated RBCs # /100WBC Sodium 143 Potassium 4.0 Chloride 99 Carbon Dioxide 31 H Anion Gap 17.0 BUN 45 H Creatinine 1.2 H GFR Calculation 45.4 L Glucose 127 H Calculated Osmolal ity 309 H Calcium 8.5 Magnesium (1.7-2.3) mg/dL Total Bilirubin 0.3 AST 34 H ALT 45 H Alkaline Phosphata se 256 H Creatine Kinase 68 Troponin T Baselin e 67 H Troponin T 120 Min [place] (0-10) ng/L Delta Troponin T (0-10) ABS# NT-Pro-B Natriuret Pep 4314 H (0-125) pg/mL Total Protein 5.0 L Albumin 2.9 L Globulin 2.1 TSH (0.27-4.20) uIU/ mL 09/06/20 09/06/20 Range/Units 18:26 20:15 WBC (4.0-10.0) 10^3/ uL RBC (4.1-5.3) 10^6/u L Hgb (11.5-15.3) g/dL Hct (37.0-47.0) % MCV (81-99) fL MCH (28.0-34.0) pg MCHC (30.0-36.0) g/dL RDW (12.1-15.1) % Plt Count (130-400) 10^3/c mm MPV (7.4-10.4) fL Neut % (Auto) % Lymph % (Auto) % Emanuel % (Auto) % Eos % (Auto) % Baso % (Auto) % Neut # (Auto) (1.8-7.7) 10^3/u L Lymph # (Auto) (0.8-4.8) 10^3/u L Emanuel # (Auto) (0.2-0.9) 10^3/u L Eos # (Auto) (0.0-0.8) 10^3/u L Baso # (Auto) (0.0-0.1) 10^3/u L Nucleated RBC % (a uto) % Nucleated RBCs # /100WBC Sodium Potassium Chloride Carbon Dioxide Anion Gap BUN Creatinine GFR Calculation Glucose Calculated Osmolal ity Calcium Magnesium 2.4 H (1.7-2.3) mg/dL Total Bilirubin AST ALT Alkaline Phosphata se Creatine Kinase Troponin T Baselin e Troponin T 120 Min [place] 65.03 H (0-10) ng/L Delta Troponin T -1.97 L (0-10) ABS# NT-Pro-B Natriuret Pep (0-125) pg/mL Total Protein Albumin Globulin TSH 1.22 (0.27-4.20) uIU/ mL Discharge Plan Discharge Patient Disposition: Admitted As Inpatient Admit Provider: Jonathan Calderon Clinical Impression: Atrial fibrillation, Metastatic lung cancer (metastasis from lung to other site) Condition: Stable Coding Level of Care Code ED Java Support Engineer for Chg Fwd Exam Detailed Documented by User: Robert Howell DO 09/06/20 20:42 HPI - Arrhythmia/Palpitations General: Chief Complaint: Arrhythmia/Palpitations Stated Complaint: SVT Time Seen by Provider: 09/06/20 17:09 [facility] ED PFSH: Medical History Abscess Acute diastolic heart failure Acute kidney injury Hyponatremia Malignant neoplasm of right main bronchus Metastatic lung cancer (metastasis from lung to other site) New onset atrial fibrillation Orthopnea Polydipsia Sepsis Sepsis with acute hypoxic respiratory failure Spontaneous tumor lysis syndrome Surgical History Hx of drainage of abscess (04/26/20) S/P dialysis catheter insertion (~04/26/20) Family History Mother CAD (coronary artery disease) Social History Smoking and tobacco status: current every day smoker cigarettes Packs smoked per day: 1.5 [ Other cigarette details: 1.5ppd x 45 ] Quit status (tobacco): considering quitting Second hand smoke exposure: No Smoking risk assessment/counseling performed?: Yes Alcohol intake: former Other details last alcohol use: She has a long history of alcohol use which had increased over the past 10 years up to 12 pack of beer per day. She quit 3 to 4 months ago. Caregiver/support person: Yes Lives independently: Yes Household members: family Housing: House Marital status: / Current occupational status: disabled History of recent travel: No Current gender identity: Female Course Vital Signs: Vital signs: Vital Signs Temperature 97.9 F 09/08/20 19:56 Pulse Rate 101 H 09/09/20 06:00 Respiratory Rate 14 09/09/20 06:00 Blood Pressure 129/80 09/09/20 06:00 Pulse Oximetry 81 L 09/09/20 06:00 MDM - Arrhythmia/Palpitations MDM Narrative: Medical decision making narrative: 65-year-old female checked out to me at shift change by Dr. Baez. This lady has a history of atrial fibrillation. She also has metastatic large cell lung cancer. She presents with a heart rate in the 160s. She eventually converted on esmolol, and is now in sinus rhythm with a rate of 90. Her blood pressure, though, has been soft. Currently 85/50. She is awake alert and talking despite this she had a recent admission for similar problems. She will go to the [facility] if her blood pressure comes up appropriately. Lab Data: Labs: Lab Results 09/06/20 09/06/20 09/06/20 Range/Units 17:30 17:30 17:30 WBC 14.8 H (4.0-10.0) 10^3/ uL RBC 3.86 L (4.1-5.3) 10^6/u L Hgb 11.6 (11.5-15.3) g/dL Hct 37.2 (37.0-47.0) % MCV 96.4 (81-99) fL MCH 30.1 (28.0-34.0) pg MCHC 31.2 (30.0-36.0) g/dL RDW 16.0 H (12.1-15.1) % Plt Count 221 (130-400) 10^3/c mm MPV 11.2 H (7.4-10.4) fL Neut % (Auto) 93.2 % Lymph % (Auto) 1.8 % Emanuel % (Auto) 3.9 % Eos % (Auto) 0.0 % Baso % (Auto) 0.2 % Neut # (Auto) 13.80 H (1.8-7.7) 10^3/u L Lymph # (Auto) 0.3 L (0.8-4.8) 10^3/u L Emanuel # (Auto) 0.6 (0.2-0.9) 10^3/u L Eos # (Auto) 0.0 (0.0-0.8) 10^3/u L Baso # (Auto) 0.0 (0.0-0.1) 10^3/u L Nucleated RBC % (a uto) 0 % Nucleated RBCs # 0.0 /100WBC Sodium Cancelled Potassium Cancelled Chloride Cancelled Carbon Dioxide Cancelled Anion Gap Cancelled BUN Cancelled Creatinine Cancelled GFR Calculation Cancelled Glucose Cancelled Calculated Osmolal ity Cancelled Calcium Cancelled Magnesium (1.7-2.3) mg/dL Total Bilirubin Cancelled AST Cancelled ALT Cancelled Alkaline Phosphata se Cancelled Creatine Kinase Cancelled Troponin T Baselin e Cancelled Troponin T 120 Min [place] (0-10) ng/L Delta Troponin T (0-10) ABS# NT-Pro-B Natriuret Pep (0-125) pg/mL Total Protein Cancelled Albumin Cancelled Globulin Cancelled TSH (0.27-4.20) uIU/ mL 09/06/20 09/06/20 09/06/20 Range/Units 18:25 18:25 18:26 WBC (4.0-10.0) 10^3/ uL RBC (4.1-5.3) 10^6/u L Hgb (11.5-15.3) g/dL Hct (37.0-47.0) % MCV (81-99) fL MCH (28.0-34.0) pg MCHC (30.0-36.0) g/dL RDW (12.1-15.1) % Plt Count (130-400) 10^3/c mm MPV (7.4-10.4) fL Neut % (Auto) % Lymph % (Auto) % Emanuel % (Auto) % Eos % (Auto) % Baso % (Auto) % Neut # (Auto) (1.8-7.7) 10^3/u L Lymph # (Auto) (0.8-4.8) 10^3/u L Emanuel # (Auto) (0.2-0.9) 10^3/u L Eos # (Auto) (0.0-0.8) 10^3/u L Baso # (Auto) (0.0-0.1) 10^3/u L Nucleated RBC % (a uto) % Nucleated RBCs # /100WBC Sodium 143 Potassium 4.0 Chloride 99 Carbon Dioxide 31 H Anion Gap 17.0 BUN 45 H Creatinine 1.2 H GFR Calculation 45.4 L Glucose 127 H Calculated Osmolal ity 309 H Calcium 8.5 Magnesium (1.7-2.3) mg/dL Total Bilirubin 0.3 AST 34 H ALT 45 H Alkaline Phosphata se 256 H Creatine Kinase 68 Troponin T Baselin e 67 H Troponin T 120 Min [place] (0-10) ng/L Delta Troponin T (0-10) ABS# NT-Pro-B Natriuret Pep 4314 H (0-125) pg/mL Total Protein 5.0 L Albumin 2.9 L Globulin 2.1 TSH (0.27-4.20) uIU/ mL 09/06/20 09/06/20 Range/Units 18:26 20:15 WBC (4.0-10.0) 10^3/ uL RBC (4.1-5.3) 10^6/u L Hgb (11.5-15.3) g/dL Hct (37.0-47.0) % MCV (81-99) fL MCH (28.0-34.0) pg MCHC (30.0-36.0) g/dL RDW (12.1-15.1) % Plt Count (130-400) 10^3/c mm MPV (7.4-10.4) fL Neut % (Auto) % Lymph % (Auto) % Emanuel % (Auto) % Eos % (Auto) % Baso % (Auto) % Neut # (Auto) (1.8-7.7) 10^3/u L Lymph # (Auto) (0.8-4.8) 10^3/u L Emanuel # (Auto) (0.2-0.9) 10^3/u L Eos # (Auto) (0.0-0.8) 10^3/u L Baso # (Auto) (0.0-0.1) 10^3/u L Nucleated RBC % (a uto) % Nucleated RBCs # /100WBC Sodium Potassium Chloride Carbon Dioxide Anion Gap BUN Creatinine GFR Calculation Glucose Calculated Osmolal ity Calcium Magnesium 2.4 H (1.7-2.3) mg/dL Total Bilirubin AST ALT Alkaline Phosphata se Creatine Kinase Troponin T Baselin e Troponin T 120 Min [place] 65.03 H (0-10) ng/L Delta Troponin T -1.97 L (0-10) ABS# NT-Pro-B Natriuret Pep (0-125) pg/mL Total Protein Albumin Globulin TSH 1.22 (0.27-4.20) uIU/ mL Discharge Plan Discharge Patient Disposition: Admitted As Inpatient Admit Provider: Jonathan Calderon Clinical Impression: Atrial fibrillation, Metastatic lung cancer (metastasis from lung to other site) Condition: Stable Coding Level of Care Code ED Java Support Engineer for Chg Fwd Exam Detailed
[2020-09-06 17:37] LABS: Basophils % 0.2 %; Hematocrit 37.2 % (37.0-47.0); Hemoglobin 11.6 g/dL (11.5-15.3); Lymphocytes # 0.3 10^3/uL (0.8-4.8); Lymphocytes % 1.8 %; Mean Corpuscular HGB Conc 31.2 g/dL (30.0-36.0); Mean Corpuscular Hemoglobin 30.1 pg (28.0-34.0); Mean Corpuscular Volume 96.4 fL (81-99); Mean Platelet Volume 11.2 fL (7.4-10.4); Monocytes # 0.6 10^3/uL (0.2-0.9); Monocytes % 3.9 %; Neutrophils % 93.2 %; Nucleated Red Blood Cells % 0 %; Platelet Count 221 10^3/cmm (130-400); Red Blood Count 3.86 10^6/uL (4.1-5.3); White Blood Count 14.8 10^3/uL (4.0-10.0)
[2020-09-06] MEDS: esmolol drip 2,500 MG/250 ML PREMIX 24 MG IV (17:40)
[2020-09-06 18:46] LABS: Alanine Aminotransferase 45 U/L (0-33); Albumin Level 2.9 g/dL (3.5-5.2); Alkaline Phosphatase 256 IU/L (35-105); Aspartate Amino Transferase 34 U/L (0-32); Blood Urea Nitrogen 45 mg/dL (8-23); Calcium 8.5 mg/dL (8.5-10.5); Carbon Dioxide 31 mmol/L (22-29); Chloride 99 mmol/L (98-107); Creatine Phosphokinase 68 U/L (26-192); Globulin 2.1 g/dL (1.3-4.6); Glomerular Filtration Rate 45.4 mL/min (90-130); Glucose 127 mg/dL (65-115); Osmolality Calculated 309 mOsm/kg (285-295); Sodium 143 mmol/L (136-145); Total Bilirubin 0.3 mg/dL (0.15-1.2)
--- NOTE | 2020-09-06 19:53 | P.HP_ITS ---
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 Patient is stating that she checked her pulse today and her heart rate was ranging between 1 80-1 90 so she is decided to come to the hospital. Recently she has not experienced nausea, vomiting, diarrhea, she has been taking her Bumex for diastolic congestive heart failure, at baseline she was using nocturnal oxygenation however for last few months she has been using 4 L [id number]. She has not noticed excessive sputum production, fever. Diagnostics in the ER revealed A. fib RVR, her rhythm change normal sinus after getting esmolol, initially her heart rate was in 196, blood pressure was soft in low 80s, after converting to sinus rhythm her blood pressure is not incrementing, a small 250 cc bolus was given, I reviewed her previous discharge summary she was prescribed dexamethasone 4 brain metastases, I have started her on stress dose steroids requested ICU admission and phenylephrine Patient was very agitated and is in denial regarding her prognosis and stage IV cancer, I called her granddaughter to tell her about active issues who is her DPOA. Review of Systems Eyes: Denies: change in vision or blurry vision ENMT: Denies: throat pain Card: Reports: edema, swelling of feet/ankles, dyspnea on exertion and orthopnea; Denies: chest pain Resp: Reports: dyspnea and non-productive cough GI: Reports: abdominal pain and nausea : Denies: flank pain Musc: Denies: neck pain Skin/Breast: Denies: rash Neuro: Denies: headache(s) Psych: Reports: anxiety, mood swings and irritability Endo: Denies: polyuria Morgan/Lymph: Denies: easy bruising All/Imm: Denies: urticaria Medications/Allergies Home Medications Medication Instructions Recorded Confirmed Last Taken Type oxycodone 10 mg PO BID PRN 08/19/20 09/06/20 09/06/20 History metoprolol tartrate 25 mg PO BID@0900,2100 #60 tab 02/03/21 02/19/21 02/19/21 Rx bumetanide 2 mg PO BID@08,199908/22/20 09/06/20 09/06/20 History Pacerone 400 mg PO DAILY@0800 09/06/20 09/06/20 09/06/20 History Stiolto Respimat 2 puff INHALATION DAILY@0800 09/06/20 09/06/20 09/06/20 History benzonatate 200 mg PO TID PRN 09/06/20 09/06/20 Unknown History omeprazole 20 mg PO DAILY@0800 09/06/20 09/06/20 09/06/20 History potassium chloride [Klor-Con M20] 20 meq PO DAILY@0800 09/06/20 09/06/20 09/06/20 History Allergies Allergy/AdvReac Type Severity Reaction Status Date / Time linezolid Allergy ALGY-Difficulty Verified 06/19/20 14:47 Breathing PFSH Acute PFSH: Medical History Abscess Acute diastolic heart failure Acute kidney injury Hyponatremia Malignant neoplasm of right main bronchus Metastatic lung cancer (metastasis from lung to other site) New onset atrial fibrillation Orthopnea Polydipsia Sepsis Sepsis with acute hypoxic respiratory failure Spontaneous tumor lysis syndrome Surgical History Hx of drainage of abscess (04/26/20) S/P dialysis catheter insertion (~04/26/20) Family History Mother CAD (coronary artery disease) Social History Smoking and tobacco status: current every day smoker cigarettes Packs smoked per day: 1.5 [ Other cigarette details: 1.5ppd x 45 ] Quit status (tobacco): considering quitting Second hand smoke exposure: No Smoking risk assessment/counseling performed?: Yes Alcohol intake: former Other details last alcohol use: She has a long history of alcohol use which had increased over the past 10 years up to 12 pack of beer per day. She quit 3 to 4 months ago. Caregiver/support person: Yes Lives independently: Yes Household members: family Housing: House Marital status: / Current occupational status: disabled History of recent travel: No Current gender identity: Female Vitals/I&O/Wt Last Vital Signs Temp 97.6 F 09/06/20 17:09 Pulse 99 09/06/20 19:30 Resp 18 09/06/20 19:30 BP 83/51 09/06/20 19:30 Pulse Ox 97 09/06/20 19:30 09/06/20 09/06/20 09/06/20 06:59 14:59 22:59 Intake Total 16.35 / 16.35 Balance 16.35 / 16.35 Weight last 48 hrs Weight 79.379 kg Physical Exam Narrative: EXAM NARRATIVE: elderly female Who is currently saturating well on 4 L nasal cannula Very upset and irritable, she seems to be in denial regarding her stage IV lung cancer, gets upset very easily, did not cooperate well during my interview with her however stated above HPI S1, S2 sinus rhythm heart rate in 70s no active cyanosis or gangrene systolic blood pressure in low 80s millimeters mercury CHF exacerbation with bilateral lower extremity edema, pedal edema +3+ Bilateral breath sounds with crackles and rhonchi Alopecia Cushingoid appearance No neurological deficit Irritable mood No joint swelling or cellulitis Data : 09/06/20 17:30 09/06/20 18:25 A&P Assessment and plan (1) Atrial fibrillation: Status: Acute Qualifiers: Atrial fibrillation type: unspecified Qualified Code(s): I48.91 - Unspecified atrial fibrillation (2) 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: Status: Acute (3) COPD (chronic obstructive pulmonary disease): Status: Acute Qualifiers: COPD type: unspecified COPD Qualified Code(s): J44.9 - Chronic obstructive pulmonary disease, unspecified (4) Smoker: Status: Acute (5) Small cell carcinoma of lung: Status: Acute (6) Adrenal insufficiency: Status: Acute (7) DIONISIO (acute kidney injury): Status: Acute Additional A&P Information Paroxysmal atrial fibrillation Currently she is in sinus rhythm, converted to sinus rhythm after getting esmolol Her blood pressure has not changed it is still low in low 70s to 80s Neurologically GCS 15 no deficit With hypotension I do not see relative or compensatory tachycardia, I am not sure if brain metastases is causing autonomic dysfunction, Not a candidate of anticoagulation due to risk of bleed secondary to hepatic and brain metastases I would hold her Bumex and metoprolol because of hypotension for now, continue amiodarone Resistant hypotension Concern for adrenal insufficiency due to chronic use of dexamethasone I would go ahead and start stress dose steroids Start phenylephrine, admit to ICU She did not respond to 250 cc bolus, judicious use of fluids because of CHF exacerbation We will recheck TSH however previous TSH level was borderline normal 0.5 Small cell neuroendocrine stage IV tumor Patient is an active smoker getting palliative brain radiotherapy DIONISIO most likely secondary to CHF exacerbation, currently I am holding her diuretics because of hypotension Goals of care discussed with the patient and granddaughter: She is full code Cardiac diet DVT prophylaxis SCDs Patient seems to be very upset and does express denial of her stage IV lung cancer and poor prognosis, her granddaughter seems to have good insight and receptive about her condition, she was updated as well Attestations Medical Necessity Statement*: Anticipating stay in the hospital cross more than 2 midnights she carries guarded prognosis, residual hypotension, stage IV cancer currently requiring phenylephrine and stress dose steroids Time Spent in Patient Care: (>than 50% of time spent in counselling and/or direct pt care on unit) . 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
[2020-09-06] MEDS: sodium chloride 0.9% 250 ML IV (20:11)
[2020-09-06 20:41] LABS: Troponin(5th) Baseline 67 ng/L (0-10)
[2020-09-06 21:18] LABS: NT Pro B Type Natriuretic Pept 4314 pg/mL (0-125)
[2020-09-06 21:34] LABS: Troponin 5 2HR 65.03 ng/L (0-10)
[2020-09-06 21:35] LABS: Troponin 5 2HR Delta -1.97 ABS# (0-10)
[2020-09-06 21:50] LABS: Add Urine Microscopic? NO
[2020-09-06 21:58] LABS: Bilirubin Urine Neg (Negative); Blood Urine Neg (Negative); Glucose Urine UA Norm (Normal); Ketones Urine Negative (Negative); Leukocyte Esterase Urine Negative (Negative); Nitrate Urine Negative (Negative); Protein Urine Neg (Negative); Specific Gravity, Urine 1.015 (1.005-1.030); Urine Appearance Clear (CLEAR); Urine Color Yellow (Yellow); Urobilinogen Urine Norm (Negative); pH Urine 5 (5-7)
[2020-09-06] MEDS: phenylephrine inj 25 MG in sodium chloride 0.9% 250 ML 24.2 MG IV (22:07)
[2020-09-06] MEDS: oxyCODONE 5 mg IR Tab/Cap 10 MG PO (22:14)
[2020-09-06 23:06] LABS: Magnesium 2.4 mg/dL (1.7-2.3); Thyroid Stimulating Hormone 1.22 uIU/mL (0.27-4.20)
[2020-09-07] VITALS (46 sets, daily range): BP systolic 105–136; BP diastolic 63–96; PULSE 79–123; RESP 9–28; TEMP 36.4–36.6; O2SAT 89–96
[2020-09-07] MEDS: oxyCODONE 5 mg IR Tab/Cap 10 MG PO ×3 (04:27→20:33)
[2020-09-07 05:42] LABS: Basophils % 0.2 %; Hematocrit 35.5 % (37.0-47.0); Hemoglobin 10.8 g/dL (11.5-15.3); Lymphocytes # 0.3 10^3/uL (0.8-4.8); Lymphocytes % 2.2 %; Mean Corpuscular HGB Conc 30.4 g/dL (30.0-36.0); Mean Corpuscular Hemoglobin 29.8 pg (28.0-34.0); Mean Corpuscular Volume 97.8 fL (81-99); Mean Platelet Volume 11.1 fL (7.4-10.4); Monocytes # 0.6 10^3/uL (0.2-0.9); Monocytes % 3.8 %; Neutrophils # 13.76 10^3/uL (1.8-7.7); Neutrophils % 92.7 %; Nucleated Red Blood Cells % 0 %; Platelet Count 250 10^3/cmm (130-400); Red Blood Count 3.63 10^6/uL (4.1-5.3); Red Cell Distribution Width 16.1 % (12.1-15.1); White Blood Count 14.8 10^3/uL (4.0-10.0)
[2020-09-07 06:14] LABS: Anion Gap 16.6 (5-19); Blood Urea Nitrogen 43 mg/dL (8-23); Calcium 8.5 mg/dL (8.5-10.5); Carbon Dioxide 32 mmol/L (22-29); Chloride 100 mmol/L (98-107); Glomerular Filtration Rate 50.2 mL/min (90-130); Glucose 100 mg/dL (65-115); Osmolality Calculated 311 mOsm/kg (285-295); Potassium 3.6 mmol/L (3.5-5.1); Sodium 145 mmol/L (136-145)
[2020-09-07] MEDS: pantoprazole DR 40 mg Tablet PO (08:34)
[2020-09-07] MEDS: amiodarone 200 mg Tablet 400 MG PO (08:35)
[2020-09-07] MEDS: potassium chloride ER 20 mEq Tablet PO (08:35)
[2020-09-07] MEDS: hydrocortisone 100 mg/2 mL SDV 50 MG IVP ×3 (09:59→21:13)
--- NOTE | 2020-09-07 10:04 | PC.NURSE ---
Pt able to answer who, where, month and day of the week questions with ease. Pt unable to recall what physician told her this am about her plan of care. Pt refused to work with OT this am. She looks very fatigued this am.
[2020-09-07] MEDS: LORazepam 0.5 mg Tablet PO ×2 (15:09→20:34)
--- NOTE | 2020-09-07 18:10 | XRR_ITS ---
PROCEDURE INFORMATION: Exam: XR Chest, 1 View Exam date and time: 09/07/2020 6:11 PM Age: 65 years old Clinical indication: Dyspnea TECHNIQUE: Imaging protocol: XR of the chest Views: 1 view. COMPARISON: CR XR chest 1V portable [id number] 09/06/2020 5:30 PM FINDINGS: Tubes, catheters and devices: Left-sided Port-A-Cath. Lungs: Bilateral mixed interstitial and airspace infiltrates, somewhat increased compared to prior exam. Pleural spaces: Moderate right pleural effusion. Heart/Mediastinum: Unremarkable. No cardiomegaly. Bones/joints: Unremarkable. XR/XR chest 1V portable [id number] IMPRESSION: 1. Moderate right pleural effusion. 2. Bilateral mixed interstitial and airspace infiltrates, somewhat increased compared to prior exam.
--- NOTE | 2020-09-07 18:17 | PM.PN ---
Subjective Subjective: Interval history: This morning she states all things considering she is doing all right. Converted to sinus rhythm overnight. Denies chest pain. This morning breathing all right all things considering. In the afternoon having some air hunger symptom, but saturations good. By the evening becoming more short of breath, but now with some noted decrease in saturation. Vitals/I&O/Wt Last Vital Signs Temp 97.5 F L 09/07/20 13:00 Pulse 86 09/07/20 16:00 Resp 25 H 09/07/20 16:39 BP 108/77 09/07/20 16:00 Pulse Ox 92 09/07/20 16:39 09/07/20 09/07/20 09/07/20 06:59 14:59 22:59 Intake Total 400 / 666.35 542.202 / 542.202 0 / 542.202 Output Total 400 / 400 Balance 0 / 266.35 542.202 / 542.202 0 / 542.202 Weight last 48 hrs Weight 79.379 kg Physical Exam Const: COMMON NORMALS: no acute distress and patient oriented x3 HENMT: COMMON NORMALS: oropharynx normal Neck/C-Spine: COMMON NORMALS: no JVD Resp: COMMON NORMALS: normal respiratory effort AUSCULTATION: wheezes and diminished lung sounds Cardio: COMMON NORMALS: no JVD, regular rhythm, S1 normal heart sound present, S2 normal heart sound present and No murmurs present (Cardio) RHYTHM: regular rhythm HEART SOUNDS: S1 normal heart sound present and S2 normal heart sound present GI: COMMON NORMALS: Normal to inspection, nondistended, normoactive bowel sounds present, Soft to palpation and non-tender PALPATION: Yes Soft to palpation Extremity: COMMON NORMALS: no joint enlargement and no pedal edema Neuro: COMMON NORMALS: patient oriented x3 and moves all extremities Skin: COMMON NORMALS: no rashes or lesions noted GENERAL SKIN EXAM: no rashes or lesions noted Urinary Catheter Management^: Torres: Cath Placed During This Visit: yes Reason for Continuing Indwelling Catheter: Accurate Measurement of Urinary Output in Critically Ill Patients Urinary Catheter Date of Insertion: 09/06/20 Urinary Catheter Time of Insertion: 21:40 Data : 09/07/20 04:55 09/07/20 04:55 A&P Assessment and plan (1) CHF (congestive heart failure): Converted to sinus rhythm last night. Blood pressure remained soft, but weaning off phenylephrine this morning. Diuretics were held. In positive balance. With some noted desaturation this evening. Blood pressure has stabilized. Since BP appears stabilized, will give a dose of Bumex IV. Repeat chest x-ray. Continue cardiac diet. Status: Acute (2) COPD (chronic obstructive pulmonary disease): COPD exacerbation. Wheezing. He is not producing phlegm. Continue steroid. Breathing treatments. For now without antibiotic. Status: Acute Qualifiers: COPD type: unspecified COPD Qualified Code(s): J44.9 - Chronic obstructive pulmonary disease, unspecified (3) Atrial fibrillation: Continue amiodarone. Not a candidate for anticoagulation. 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 Unfortunately overall prognosis is very poor. Discussed with granddaughter who is power of estate attorney healthcare. She states patient has had recently very significant decline in her health. Functional capacity. Especially in the last several days has effectively not been able to be independent. Some of the recent decline may have been secondary to A. fib with RVR, hypotension. However, we discussed also that she has quite advanced cancer, and unfortunately may very well be declining due to it. We discussed consideration of goals of care. Granddaughter will be considering further depending on her condition in the coming days and discussed with patient with regards to additional options going forward. The way things stand currently she cannot function independently at home. We will obtain PT and OT evaluation. Status: Acute (5) Smoker: Current smoker. Status: Acute (6) Small cell carcinoma of lung: Status: Acute (7) Adrenal insufficiency: Continue hydrocortisone. Status: Acute (8) DIONISIO (acute kidney injury): Mild acute kidney injury, blood pressures improved. With fluid overload, dyspnea, worsening and hypoxia, will resume diuretic. Status: Acute Additional A&P Information I agree with the multiple previous assessments that her overall prognosis is unfortunately not good. Attestations Medical Necessity Statement*: Requiring admission of over 2 midnights for assessment and management of adrenal insufficiency, hypotension, CHF exacerbation, COPD exacerbation in the setting of underlying metastatic stage IV small cell lung cancer. 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
[2020-09-07] MEDS: bumetanide 0.25 mg/mL SDV 10 mL 2 MG IV (18:37)
--- NOTE | 2020-09-07 18:47 | PC.NURSE ---
Shift summary: pt has been irritable most of the day. She is alert and oriented to self, place, date. but she does have memory lapses. She could not recall conversation with Physician 2 hours after, this am. She has wheezes inspiratory and expiratory. She has a loose rattling cough that does not come up. She has complained of not being comfortable , but refusing pain meds this am. C/O of being short of breath. She does have more accessory muscle and abdominal breathing at end of shift. Oxymask at 4lpm/NC changed from NC as she was mouth breathing while she was asleep. Dr Gomez notified, Chest xray and Bumex IVP ordered and done. She was anxious this afternoon, ativan ordered by and admin, it seemed to help some. She finally agreed to pain meds this afternoon. She has picked at her meals today. During one shortness of breath episode she stated I know I am just going to . When are my lungs going to get better . Educated pt that her lungs where not going to get better but we could and our goal was to alleviate her symptoms.
[2020-09-07] MEDS: ipratropium-albuterol 3 mL Neb INHALATION ×2 (20:16→23:32)
[2020-09-08] VITALS (58 sets, daily range): BP systolic 82–136; BP diastolic 44–86; PULSE 75–152; RESP 12–30; TEMP 36.2–37.2; O2SAT 86–94
--- NOTE | 2020-09-08 01:10 | PC.NURSE ---
Dr Gomez notified of pt removing IV, Esmolol off, pt very irritable and uncomfortable. Orders for ABG and may access port received.
[2020-09-08] MEDS: esmolol drip 2,500 MG/250 ML PREMIX 23.8 MG IV (01:57)
[2020-09-08] MEDS: hydrocortisone 100 mg/2 mL SDV 50 MG IVP (03:26)
[2020-09-08] MEDS: ipratropium-albuterol 3 mL Neb INHALATION ×5 (03:49→20:52)
[2020-09-08] MEDS: morphine 4 mg/mL SDV 1 mL 2 MG IVP (04:03)
[2020-09-08 04:38] LABS: Basophils % 0.3 %; Hematocrit 36.4 % (37.0-47.0); Lymphocytes # 0.2 10^3/uL (0.8-4.8); Lymphocytes % 1.4 %; Mean Corpuscular HGB Conc 30.2 g/dL (30.0-36.0); Mean Corpuscular Hemoglobin 29.9 pg (28.0-34.0); Mean Corpuscular Volume 98.9 fL (81-99); Mean Platelet Volume 11.2 fL (7.4-10.4); Monocytes # 0.6 10^3/uL (0.2-0.9); Monocytes % 3.5 %; Neutrophils # 14.98 10^3/uL (1.8-7.7); Neutrophils % 93.7 %; Nucleated Red Blood Cells % 0 %; Platelet Count 222 10^3/cmm (130-400); Red Blood Count 3.68 10^6/uL (4.1-5.3); Red Cell Distribution Width 15.9 % (12.1-15.1)
[2020-09-08 04:57] LABS: Alanine Aminotransferase 42 U/L (0-33); Albumin Level 2.6 g/dL (3.5-5.2); Alkaline Phosphatase 214 IU/L (35-105); Anion Gap 17.1 (5-19); Aspartate Amino Transferase 34 U/L (0-32); Blood Urea Nitrogen 45 mg/dL (8-23); Calcium 8.8 mg/dL (8.5-10.5); Carbon Dioxide 29 mmol/L (22-29); Chloride 99 mmol/L (98-107); Globulin 2.7 g/dL (1.3-4.6); Glomerular Filtration Rate 45.4 mL/min (90-130); Glucose 115 mg/dL (65-115); Magnesium 2.2 mg/dL (1.7-2.3); Osmolality Calculated 304 mOsm/kg (285-295); Potassium 4.1 mmol/L (3.5-5.1); Sodium 141 mmol/L (136-145); Total Bilirubin 0.3 mg/dL (0.15-1.2); Total Protein 5.3 g/dL (6.6-8.7)
[2020-09-08] MEDS: potassium chloride ER 20 mEq Tablet PO (08:01)
[2020-09-08] MEDS: pantoprazole DR 40 mg Tablet PO ×2 (08:01→08:34)
[2020-09-08] MEDS: metoprolol tartrate 25 mg Tablet PO ×2 (08:01→20:23)
[2020-09-08] MEDS: LORazepam 0.5 mg Tablet PO ×2 (08:41→19:40)
[2020-09-08] MEDS: esmolol drip 2,500 MG/250 ML PREMIX 35.7 MG IV (08:45)
[2020-09-08] MEDS: piperacillin-tazobactam 3.375 GM in sodium chloride 0.9% (plus) 50 ML IV ×3 (09:10→23:43)
[2020-09-08] MEDS: amiodarone 200 mg Tablet 400 MG PO (09:11)
--- NOTE | 2020-09-08 09:15 | PM.PN ---
Subjective Subjective: Interval history: She is feeling somewhat uneasy this morning, somewhat anxious. Overall feels she is not doing well. Denies any particular complaint. She is not in pain. She is alert and oriented x3. Knows why she is here. This morning she declined to take her medications, but on discussion states that she just wanted a little break, and that she might try to take them little bit later. States she understands that the goal would be to try to wean down off of esmolol drip in favor of atrial fibrillation control with oral medications. We will give diuretic IV. She does feel her chest is a bit more congested today. She is agreeable to starting antibiotic. In case her breathing got worse she is agreeable with support with NIPPV. With her nurse we discussed in detail with her regarding directives on which she may want to done in case her conditions continue to worsen or if she went into cardiopulmonary arrest. She would not want intubation. In case of cardiac arrest would rather make sure she was kept comfortable, without chest compressions or shock. We discussed her wishes with her granddaughter. She finds them reasonable as well. She has been repositioned to her desired level of comfort in bed. She is taking a break, and will try taking medications again in a short while. Vitals/I&O/Wt Last Vital Signs Temp 98.9 F 09/08/20 03:00 Pulse 80 09/08/20 07:40 Resp 18 09/08/20 07:34 BP 106/67 09/08/20 06:00 Pulse Ox 92 09/08/20 07:34 09/07/20 09/08/20 09/08/20 22:59 06:59 14:59 Intake Total 250 / 792.202 4.363 / 796.565 250.495 / 250.495 Output Total 575 / 575 450 / 1025 Balance -325 / 217.202 -445.637 / -228.435 250.495 / 250.495 Weight last 48 hrs Weight 79.379 kg Physical Exam Const: COMMON NORMALS: no acute distress and patient oriented x3 OTHER: Generally weak. HENMT: COMMON NORMALS: oropharynx normal OTHER: Alopecia Neck/C-Spine: COMMON NORMALS: no JVD Resp: COMMON NORMALS: normal respiratory effort AUSCULTATION: rhonchi and wheezes Cardio: COMMON NORMALS: no JVD, regular rhythm, S1 normal heart sound present, S2 normal heart sound present and No murmurs present (Cardio) RHYTHM: regular rhythm HEART SOUNDS: S1 normal heart sound present and S2 normal heart sound present GI: COMMON NORMALS: Normal to inspection, nondistended, normoactive bowel sounds present, Soft to palpation and non-tender PALPATION: Yes Soft to palpation Extremity: COMMON NORMALS: no joint enlargement and no pedal edema Neuro: COMMON NORMALS: patient oriented x3 and moves all extremities Skin: COMMON NORMALS: no rashes or lesions noted GENERAL SKIN EXAM: no rashes or lesions noted Urinary Catheter Management^: Torres: Cath Placed During This Visit: yes Reason for Continuing Indwelling Catheter: Accurate Measurement of Urinary Output in Critically Ill Patients Urinary Catheter Date of Insertion: 09/06/20 Urinary Catheter Time of Insertion: 21:40 Data : 09/08/20 03:59 09/08/20 03:59 A&P Assessment and plan (1) CHF (congestive heart failure): Converted to sinus rhythm last night. Blood pressure remained soft, but weaning off phenylephrine this morning. Diuretics were held. In positive balance. With some noted desaturation this evening. Blood pressure has stabilized. Since BP appears stabilized, will give a dose of Bumex IV. Repeat chest x-ray. Continue cardiac diet. Status: Acute (2) COPD (chronic obstructive pulmonary disease): Continue treatment of COPD exacerbation. As she grows weaker, she may start retaining more CO2. She is agreeable for NIPPV support if this was needed. Antibiotic added as she is sounding more congested, with rhonchi. Will escalate steroid to Solu-Medrol 60 mg every 6h. Continue scheduled and as needed breathing treatments. Status: Acute Qualifiers: COPD type: unspecified COPD Qualified Code(s): J44.9 - Chronic obstructive pulmonary disease, unspecified (3) Atrial fibrillation: If she may take this morning's medications, will try to wean off esmolol drip. Continue amiodarone. Metoprolol 25 mg twice daily was added this morning. Not a candidate for anticoagulation. 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 With significant functional decline recently, and this does not appear to be improving with control of atrial fibrillation and improvement in blood pressure. We will empirically add antibiotics in case of possible pneumonia, possible aspiration. Continue diuresis for CHF. Continue treatment of COPD exacerbation. She and her granddaughter are slated to be discussing further later today regarding additional post discharge planning. In process of receiving second line therapy after progression after primary treatment. Unfortunately overall prognosis is very poor. Discussed with granddaughter who is power of deputy prosecuting attorney healthcare. She states patient has had recently very significant decline in her health. Functional capacity. Especially in the last several days has effectively not been able to be independent. Some of the recent decline may have been secondary to A. fib with RVR, hypotension. However, we discussed also that she has quite advanced cancer, and unfortunately may very be the cause. We discussed consideration of goals of care. Granddaughter will be considering further depending on her condition in the coming days and discussed with patient with regards to additional options going forward. The way things stand currently she cannot function independently at home. PT/OT evaluation was requested. Status: Acute (5) Smoker: Encourage cessation. Status: Acute (6) Small cell carcinoma of lung: Status: Acute (7) Adrenal insufficiency: Blood pressure is improved. Status: Acute (8) DIONISIO (acute kidney injury): Mild acute kidney injury, blood pressures improved. Status: Acute Additional A&P Information I agree with the multiple previous assessments that her overall prognosis is unfortunately not good. Attestations Medical Necessity Statement*: Continue admission for optimization of control of A. fib with RVR, CHF, COPD exacerbation, possible pneumonia, possible microaspiration, in the setting of progressive functional decline with metastatic lung cancer. 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
--- NOTE | 2020-09-08 09:30 | PC.NURSE ---
Bed changed out to the newer one with the alternating air pressures. Pt seems to tolerate this bed better. She does have a dark red/purple area on her right bottom.
[2020-09-08] MEDS: bumetanide 0.25 mg/mL SDV 10 mL 2 MG IV ×2 (09:50)
--- NOTE | 2020-09-08 10:05 | PC.NURSE ---
Bumex late delay due to assisting other pt and assisting this patient with oral medications
--- NOTE | 2020-09-08 10:42 | PC.NURSE ---
left arm IV out by patient. Esmolol gtt off.
[2020-09-08] MEDS: oxyCODONE 5 mg IR Tab/Cap 10 MG PO ×3 (11:29→19:40)
[2020-09-08 11:39] LABS: ABG PCO2 50.5 mmHg (35-45); ABG PH Result 7.46 (7.35-7.45); Base Excess ABG 10.9 mmol/L (-2.0-2.0); Blood Gas Allen Test Pos; Blood Gas Operator Identificat ED; Blood Gas Sample Site Radial, left; Blood Gas Sample Type Arterial; HCO3 ABG 36.2 mmol/L (22-26); Oxygen Device NC; PO2 ABG 52.7 mmHg (80.0-100.0)
--- NOTE | 2020-09-08 16:30 | PC.NURSE ---
Pt offered repositioning several times today that have been refused.
--- NOTE | 2020-09-08 18:30 | PC.NURSE ---
O2 sats dropped to 86%,Pt gasping, dusky in color. Oxygen increased to 6lpm.
--- NOTE | 2020-09-08 19:03 | PC.NURSE ---
Shift summary: Pt has rested with eyes closed most of the day. Exceptions were when she called out for help to breath or get comfortable. She has been using accessory muscles, abdominal and gasping breaths today. Dr Gomez spoke with pt. She is now a limited code. Her color is pale ashen to dusky at times. She ate a fews bites at breakfast, but that is it for the day. SHe has only had a few sips of liquids throughout the shift. It was more difficult for her to swallow PO meds today. Her bottom had a reddened area already it is getting purplish now.
[2020-09-08] MEDS: morphine 4 mg/mL SDV 1 mL IVP (22:18)
--- NOTE | 2020-09-08 22:41 | PC.NURSE ---
Addendum entered by Yoon Gregory RN 09/09/20 01:49: [address] Cherish at bedside. Dr. Delgado at bedside updated on worsening condition and proceed with comfort care only. Granddaughter stated I just want her to be comfortable. Addendum entered by Yoon Gregory RN 09/09/20 00:46: 0015 Dr. Calderon updated on pt wishing to refusing to use Bipap. Pt keeps hollaring help me please. Pt struggling to breath see orders 0030 Family at bedside granddaughter at bedside. Requesting comfort care measures. Pt SOB labored abdominal breathing Updated Dr. Calderon Comfort care measures ordered. see orders Original Note: 2240 Updated Granddaughter Cherish on worsening prognosis. Mrs. Jack refusing Bipap. Pt on 10liters. Dusky apperance labored breathing Updated Dr Delgado see orders.
[2020-09-09] VITALS (19 sets, daily range): BP systolic 94–151; BP diastolic 53–80; PULSE 0–102; RESP 11–18; O2SAT 57–93
[2020-09-09] MEDS: morphine 4 mg/mL SDV 1 mL IVP (00:39)
[2020-09-09] MEDS: LORazepam 2 mg/mL INJ 1 mL IVP (00:42)
--- NOTE | 2020-09-09 07:43 | PC.NURSE ---
Pt . Dr Olmos, on unit notified.
--- NOTE | 2020-09-09 07:50 | PC.NURSE ---
MTS notified of .
--- NOTE | 2020-09-09 07:55 | PC.NURSE ---
Nallelydebbie Bailey, grand daughter, DPOA, notified of via telephone. Verified [facility] in [address] as home.
--- NOTE | 2020-09-09 09:11 | PM.DDS ---
Discharge Providers DDS Date of Admission: 09/06/20 20:28 Date Summary Completed: 09/09/20 Attending Provider at Admission: Jonathan Calderon MD Time of : 07:43 Attending Provider at Discharge: Misael Olmos MD Primary Care Provider: Mariam Mckeon Diagnoses Hospital Diagnoses (1) CHF (congestive heart failure): (2) COPD (chronic obstructive pulmonary disease): Qualifiers: COPD type: unspecified COPD Qualified Code(s): J44.9 - Chronic obstructive pulmonary disease, unspecified (3) Atrial fibrillation: Qualifiers: Atrial fibrillation type: unspecified Qualified Code(s): I48.91 - Unspecified atrial fibrillation (4) 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 She has a history of stage IV small cell neuroendocrine lung cancer and was getting palliative brain radiation for metastasis. She had extensive metastasis to her brain and liver. She was found to be in atrial fibrillation with rapid ventricular rate, hypotensive, and with acute kidney injury. Pressors, amiodarone were initiated. The next day, she had converted to sinus rhythm. She was having some air hunger. Pressors that were started on admission were weaning slightly. There was some evidence of CHF and diuretics were initiated. Discussions started occurring regarding overall goals of care, and whether comfort measures would be appropriate. The following day on the patient was feeling anxious. She discussed her desires, in event of cardiac arrest. She continued to have some hypotension. Steroids had also been initiated during her hospital course and were increased. Antibiotics were added empirically. Patient continued to worsen through the night from September 08-. Extensive discussions occurred with the nurse instructor and the family, and the patient was changed to comfort measures only. I was able to see her prior to her dying on September 09. When I evaluated her she was unresponsive, with some tachypnea. She did appear comfortable. She shortly after. Diagnosis of , widely metastatic neuroendocrine carcinoma of the lung Additional Data Advance directives?: Yes Discharge Plan Discharge Patient Disposition: Condition: Stable Prescriptions: No Action oxycodone 10 mg tablet 10 mg PO BID PRN (Reason: Pain) RF: 0 metoprolol tartrate 25 mg Tablet 25 mg PO BID@0900,2100 Qty: 60 RF: 0 bumetanide 1 mg tablet 2 mg PO BID@0800,2000 RF: 0 benzonatate 200 mg capsule 200 mg PO TID PRN (Reason: Cough) RF: 0 omeprazole 20 mg capsule,delayed release(DR/EC) 20 mg PO DAILY@0800 RF: 0 Pacerone 200 mg tablet 400 mg PO DAILY@0800 RF: 0 Klor-Con M20 20 mEq tablet,ER particles/crystals 20 meq PO DAILY@0800 RF: 0 Stiolto Respimat 2.5-2.5 mcg/actuation mist 2 puff inhalation DAILY@0800 RF: 0 Referrals: Mariam Mckeon FNP-C [Primary Care Provider] - Probable Cause of Probable cause of : Lung cancer metastatic to brain DS Attestations Time Spent in /Discharge Care*: greater than 30 min Quality - AMI: AMI present?: No Quality - Stroke: CVA present?: No Symptom Onset Unknown: No Quality - VTE: VTE present?: No Deep Vein Thrombosis/Pulmonary Embolism Present on Admission: No Coding Level of Care Code Acute 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
--- NOTE | 2020-09-09 09:17 | PC.NURSE ---
Saving sight called and placed patient on hold. Eye care saline gtts and ice applied to both eyes, HOB elevated to 30degrees, done.
--- NOTE | 2020-09-09 09:35 | PC.CHAP ---
Pastoral Care Encounter/Spiritual Assessment Type of Contact [] Declined internet marketing analyst visit [] Patient/Family/Request visit [] Outpatient visit [] Follow-up visit [] Physician referral [] Code/Alert [x] Routine visit [] Staff referral [] Actively dying [] Patient sleeping [] Family support [] [] Out of room [] Palliative care [] [] Receiving care in room [] Pre-surgical visit [] Trauma [] Long length of stay [x] ICU visit [] Other: Relational/Emotional Strength [] Patient feels connected with others/family/visitors/staff [] Distress [] Loneliness/isolation [] Abandonment Spirituality of Patient [] Person of Melanie [] Attends Tenriism of their Melanie [] Believes in Prayer [] Reads Bible or Sabianist materials [] There are Spiritual issues to be addressed Warp Splitter Interventions [x] Prayer [] Active listening [] Non-anxious presence [] Spiritual/emotional support [] Crisis/trauma care [] Spiritual counseling [] Bereavement support [] Provided bereavement packet [] Provided Bible/devotional materials [] Provided toy/stuffed animal, coloring book to patient or family member [] Provided Communion [] Anointing/Sterling [] Salvation [x] Completed spiritual assessment [] Other: Impact on Illness or Injury [] Angry [] Fearful [] Anxious [] Often cries [] Exhaustion [] Unable to work [] Unable to attend samaritan [] Unable to walk/stand [] Unable to read [] Unable to drive [] Unable to eat/drink [] Unable to sleep [] Unable to be with family [] Patient intubated [] Other: Summary Time spent with patient
--- NOTE | 2020-09-09 10:52 | PC.NURSE ---
Body to the morgue.
--- NOTE | 2020-09-09 17:30 | PC.RESP ---
Smoking Cessation and Pulmonary Rehab information sent to patient.
== END 2020-09-09 10:53 | disposition expired | DRG 308 ==
LOC: ER 19:46 → ICU 09-07 07:02 → CSU 09-07 09:12
PROVIDERS: Family Medicine; Internal Medicine; Admitting Provider Internal Medicine; Emergency Provider Emergency Medicine; PCP Nurse Practitioner Family; Visit Provider Internal Medicine
DX: I48.91 Unspecified atrial fibrillation (principal); I50.33 Acute on chronic diastolic (congestive) heart failure; J69.0 Pneumonitis due to inhalation of food and vomit; C7A.8 Other malignant neuroendocrine tumors; C7B.8 Other secondary neuroendocrine tumors; J44.1 Chronic obstructive pulmonary disease with (acute) exacerbation; N17.9 Acute kidney failure, unspecified; E87.1 Hypo-osmolality and hyponatremia; E27.40 Unspecified adrenocortical insufficiency; Z99.81 Dependence on supplemental oxygen; F17.210 Nicotine dependence, cigarettes, uncomplicated; I95.89 Other hypotension; F41.9 Anxiety disorder, unspecified; Z51.5 Encounter for palliative care
CPT/HCPCS: 36415; 51702; 71045; 80048; 80053; 81003; 82550; 82803; 83735; 83880; 84443; 84484; 85025; 87040; 93005; 94640; 96374; 96375; 97166; 99291; J1720; J2060; J2270; J2370; J2543; J2930; J3490; J7050